=== PATIENT | female | born 1940 | race Caucasian/White ===

== ENCOUNTER → 2017-09-06 07:02 | Outpatient (CLI) | payer MEDICARE, SELFPAY ==
[2017-09-06 07:54] LABS: AST(SGOT) 14 U/L (15-37); Alanine Aminotransfer ALT/SGPT 17 U/L (13-56); Albumin, Serum 3.8 g/dL (3.2-5.0); Alkaline Phosphatase 63 U/L (45-117); Cholesterol 122 mg/dL (200); Globulin 3.6 g/dL (2.2-4.2); High Density Lipoprotein 57 mg/dL; Protein, Total 7.4 g/dL (6.4-8.2); Triglycerides 92 mg/dL; Very Low Density Lipoprotein 18 mg/dL (5-40)
== END ==
PROVIDERS: Family Provider Family Medicine; PCP Family Medicine; Visit Provider Physician Assistant Medical
DX: E78.5 Hyperlipidemia, unspecified (principal); Z79.899 Other long term (current) drug therapy
CPT/HCPCS: 36415; 80061; 80076

== ENCOUNTER → 2017-09-22 07:03 | Outpatient (CLI) | payer MEDICARE, SELFPAY ==
[2017-09-22 07:38] LABS: Absolute Lymphocyte Count 1.96 X10^3/ul (0.83-4.51); Absolute Neutrophil Count 2.5 X10^3/uL (2.0-7.7); Basophil# 0.05 X10^3/uL; Eosinophil# 0.14 X10^3/uL; Eosinophils% 2.8 % (0-5); Hematocrit 38.9 % (37-47); Hemoglobin 12.7 g/dl (12.0-15.0); Lymphocyte # 1.96 X10^3/ul (4.0); Lymphocyte % 39.4 % (19-41); Mean Corp Hgb Conc 32.6 g/gl (32-36); Mean Corpuscular Hgb 29.4 pg (27.0-32.0); Mean Platelet Vol. 10.1 fl (6.2-12.0); Monocyte# 0.34 X10^3/uL; Monocyte% 6.8 % (0-10); Neutrophil # 2.48 X10^3/uL (2.7-7.7); Platelet Count 234 K/mm3 (150-450); RBC Distribution Width CV 12.8 % (11.6-14.6); RBC Distribution Width SD 41.9 fl (35.1-43.9); Red Blood Count 4.32 M/mm3 (4.2-5.4)
[2017-09-22 07:40] LABS: POSITIVE COUNT NO; POSITIVE DIFFERENTIAL NO; POSITIVE MORPHOLOGY NO
[2017-09-22 08:08] LABS: Anion Gap 4 (5-15); BUN 10 mg/dL (7-18); BUN/Creat Ratio 11.7 RATIO (10-20); Calcium,Total 8.3 mg/dL (8.5-10.1); Chloride 104 mmol/L (98-107); Creatinine, Serum 0.86 mg/dL (0.55-1.02); EST Glomerular Filtration Rate 68 mL/min (>60); Est Glom Filt Rate - Afr Amer 82 mL/min (>60); Glucose 89 mg/dL (74-106); Potassium 4.2 mmol/L (3.5-5.1); Sodium Level 138 mmol/L (136-145); T4 Total, Thyroxin 11.6 ug/dL (4.8-13.9); Thyroid Stim Hormone (TSH) 3.25 uIU/mL (0.358-3.74)
== END ==
PROVIDERS: Family Provider Family Medicine; PCP Family Medicine; Visit Provider Physician Assistant Medical
DX: R94.31 Abnormal electrocardiogram [ECG] [EKG] (principal); R53.83 Other fatigue; I10 Essential (primary) hypertension; R06.00 Dyspnea, unspecified; E78.5 Hyperlipidemia, unspecified; I25.10 Atherosclerotic heart disease of native coronary artery without angina pectoris
CPT/HCPCS: 36415; 80048; 84436; 84443; 85025

== ENCOUNTER 2017-10-11 07:13 | Emergency (ER) | payer MEDICARE, SELFPAY ==
--- NOTE | 2017-10-11 07:13 | DT_ITS ---
This patient was seen during an EMR downtime October 04, 2017 - October 11, 2017. This patient may have a combination of paper and electronic documentation or all paper documentation. All documentation is viewable within the e-chart portion of [facility] for each patient visit.
[2017-10-11 07:14] VITALS: BP 158/80; PULSE 93; RESP 22; TEMP 37; O2SAT 92; BMI 30.1
--- NOTE | 2017-10-11 07:29 | EKG12_ITS ---
Test Reason : SOB Blood Pressure : / mmHG Vent. Rate : 083 BPM Atrial Rate : 083 BPM P-R Int : 178 ms QRS Dur : 092 ms QT Int : 376 ms P-R-T Axes : 072 007 028 degrees QTc Int : 441 ms Sinus rhythm with Premature atrial complexes Otherwise normal ECG Confirmed by GERA HOPE, MARÍA ([id number]), film editor supervisor RETA JUNG ([id number] on 10/13/2017 5:56:41 PM Referred By: MARIA ESTHER Confirmed By:MARÍA BOSS MD
--- NOTE | 2017-10-11 07:29 | RAD_ITS ---
STUDY: X-RAY CHEST REASON FOR EXAM: Female, 77 years old. Cough for 4 days TECHNIQUE: PA and lateral views of the chest. COMPARISON: None. FINDINGS: There is a large hiatal hernia. There is minimal scarring at the left lung base. There is no demonstrated pleural abnormality. Normal size heart. Normal mediastinum and salas. Normal visualized pulmonary arteries. There is atherosclerotic calcification of the aortic arch with tortuosity. There are diffuse degenerative changes of the visualized thoracic spine. The bones are demineralized. There is a compression deformity at T12. There is no demonstrated abnormality of the visualized soft tissue structures of the upper abdomen. RAD/Chest PA and Lateral IMPRESSION: Minimal left basilar scarring. Large hiatal hernia. Electronically Signed: Juan C Landeros DO at 8:48 EDT Tel , Service support ,
[2017-10-11 07:46] VITALS: O2SAT 94
--- NOTE | 2017-10-11 07:48 | ED.VIS.GEN ---
History of Present Illness Chief Complaint: Shortness of Breath Informant: Patient, Family Onset: Days - 4 Context: Gradual Onset Timing: Intermittent Quality: wheezing Location: chest Current Severity: Mild Maximum Severity: Moderate Worsened by: exertion, coughing Relieved by: rest Associated Symptoms: chills Narrative: Patient is very poor historian; she states she sees a custom clothier locally but does not know why. Does not think she has asthma but states she may have a little COPD and then admits that she has never been a smoker. Is not on home oxygen. States that she has had dyspnea with exertion and a nonproductive cough that feels like it is worsening over the past 4 days. She has had intermittent dyspnea on exertion however, and swelling in her lower extremities for a year plus or minus. No recent PCP visits, but states that she has a stress test ordered for a week or 2 away from now because of her issues with breathing. - Past Medical History (1) Atherosclerotic heart disease of [place] coronary artery without angina pectoris Status: Chronic (2) Essential (primary) hypertension Status: Chronic (3) HLD (hyperlipidemia) Status: Chronic Past Medical History - Allergies and Home Meds Allergies/Adverse Reactions: Allergies No Known Allergies Allergy (Verified 10/11/17 07:15) Primary Care Physician: Jamir Guardado DO [Primary Care Provider] - Lives: Spouse/ Significant Other Smoking Status: Never smoker Review of Systems All systems negative except as indicated General: Reports: Chills, Malaise ENT: Reports: Rhinorrhea. Denies: Bilateral ear pain, Sore throat Cardiovascular: Denies: Chest pain, Palpitations, Heart racing Respiratory: Reports: Cough, Dyspnea on exertion, Orthopnea - Chronic Gastrointestinal: Reports: Nausea. Denies: Abdominal pain, Vomiting, Diarrhea, Melena Musculoskeletal: Reports: Swelling - BLE. Denies: Neck pain, Back pain Physical Exam Vital Signs/Narrative: Vital Signs Temp Pulse Resp BP Pulse Ox 10/11/17 07:14 98.6 F 93 22 H 158/80 H 92 Inital Vital Signs reviewed: Yes General: Well nourished, Well developed, Obese Head: Normocephalic, Atraumatic Eyes: Perrl, EOMI ENT: Moist mucous membranes, No rhinorrhea, TM's clear. Negative for: Sinus tenderness Neck: Supple, Nontender, No lymphadenopathy, - - + JVD Cardiovascular: Regular rate, Regular rhythm, No murmurs Respiratory: No distress, Chest nontender, Rales - Left base Abdomen: Soft, Nontender, Nondistended, Normal bowel sounds Back: Nontender, Normal Inspection. Negative for: CVA tenderness Extremities: Nontender, Edema - 1+ BLE Skin: Normal color, No rash Neurological: Alert, Oriented x3, Cranial nerves II-XII grossly intact, Normal Strength, Normal Sensation, Normal Gait - Without apparent gross dyspnea Psychological: Normal affect Diagnostic/Tx/Re-eval Impressions Chest X-Ray 10/11/17 07:29 IMPRESSION: Minimal left basilar scarring. Large hiatal hernia. Electronically Signed: Juan Carmin Landeros DO at 8:48 EDT Tel , Service support , 10/11/17 07:29 Chest PA and Lateral [RAD] Stat Laboratory Results 10/11/17 10/11/17 10/11/17 Range/Units 07:45 07:45 07:45 WBC 9.2 (4.4-11.0) K/mm3 RBC 4.49 (4.2-5.4) M/mm3 Hgb 13.8 (12.0-15.0) g/dl Hct 40.5 (37-47) % MCV 90.2 (81-99) fL MCH 30.7 (27.0-32.0) pg MCHC 34.1 (32-36) g/gl RDW 12.8 (11.6-14.6) % RDW Differential 41.9 (35.1-43.9) fl Plt Count 228 (150-450) K/mm3 MPV 10.0 (6.2-12.0) fl Immature Gran % (Auto) 0.300 (0.0-0.9) % Neut % (Auto) 82.4 H (47-70) % Lymph % (Auto) 10.7 L (19-41) % Coryell % (Auto) 5.4 (0-10) % Eos % (Auto) 0.8 (0-5) % Baso % (Auto) 0.4 (0-1) % Absolute Neuts (auto) 7.5 (2.0-7.7) X10^3/uL Absolute Lymphs (auto) 0.98 (0.83-4.51) X10^3/ul Total Counted Not Reportable Sodium 134 L (136-145) mmol/L Potassium 3.5 (3.5-5.1) mmol/L Chloride 100 (98-107) mmol/L Carbon Dioxide 28.0 (21.0-32.0) mmol/L Anion Gap 6 (5-15) BUN 10 (7-18) mg/dL Creatinine 0.82 (0.55-1.02) mg/dL Est GFR (MDRD) Af Amer 87 (>60) mL/min Est GFR (MDRD) Non-Af 72 (>60) mL/min BUN/Creatinine Ratio 12.3 (10-20) RATIO Glucose 124 H (74-106) mg/dL Calcium 8.7 (8.5-10.1) mg/dL Troponin I < 0.015 (<0.045) ng/mL B-Natriuretic Peptide 171.2 H (0-100) pg/mL - Rhythm Strip Rhythm Strip: Sinus Rhythm Rate: 80 Ectopy: PAC(s) - EKG 1 Interpretation: Sinus Rhythm, No Acute Injury Pattern, - - nml axis. low voltage. PAC. No ST segment deviation or acute ischemic chgs. - Medical Decision Making Workup is fairly unremarkable, except for a large hiatal hernia on chest x-ray. In viewing the image, her stomach is in the right side of her chest, and occupies a good amount of her right hemithorax. It is larger appearing than on her prior chest x-ray, on which a hiatal hernia was noted, but the technique is similar and it appears to be larger. It is certainly conceivable that this is contributing to her dyspnea with exertion. Now that she has a respiratory illness, it is not surprising that her breathing is worse. In discussing with family, it seems that since the hospital was having computer issues recently, her stress test was supposed to be last week and it was canceled and has not been rescheduled yet. They are planning on doing that, this was supposed to be done according to her custom clothier. She may need further workup for this hiatal hernia, if it is paraesophageal she could be a candidate for surgical treatment, although that will be all relative given her age. She is encouraged to follow-up with her doctor regarding this. She was given a breathing treatment, which did loosen her secretions and made her cough a lot more, and when she coughed something up, it was yellow, and she does feel like she is breathing better. There is no sign of any pneumonia on the chest x-ray, but I think it would be reasonable at her age to put her on a broad-spectrum antibiotic such as Levaquin at bronchitis dosing, and have her follow-up with her doctor regarding this as well. Her pulse ox was 92% at rest on room air, I think it is reasonable to discharge her home, she is advised to rest if she starts getting dyspnea when performing activities at home. She and family are comfortable with that plan. ED Disposition - Plan for ED Patient: Disposition: Home or Assisted Living Chief Complaint: Shortness of Breath Diagnosis: Dyspnea on exertion, Lower respiratory tract infection, Hiatal hernia Instructions: Acute Bronchitis, What Is a Hiatal Hernia? Prescriptions: levoFLOXacin tablet [Levaquin] 500 mg PO DAILY #7 tab Referrals: Jamir Guardado DO [Primary Care Provider] - 3-5 Days
[2017-10-11 08:10] LABS: Absolute Lymphocyte Count 0.98 X10^3/ul (0.83-4.51); Absolute Neutrophil Count 7.5 X10^3/uL (2.0-7.7); Basophil# 0.04 X10^3/uL; Basophil% 0.4 % (0-1); Eosinophil# 0.07 X10^3/uL; Eosinophils% 0.8 % (0-5); Hematocrit 40.5 % (37-47); Hemoglobin 13.8 g/dl (12.0-15.0); Lymphocyte # 0.98 X10^3/ul (4.0); Lymphocyte % 10.7 % (19-41); Mean Corp Hgb Conc 34.1 g/gl (32-36); Mean Corpuscular Hgb 30.7 pg (27.0-32.0); Mean Corpuscular Volume 90.2 fL (81-99); Monocyte# 0.49 X10^3/uL; Monocyte% 5.4 % (0-10); Neutrophil # 7.54 X10^3/uL (2.7-7.7); Neutrophil % 82.4 % (47-70); Platelet Count 228 K/mm3 (150-450); RBC Distribution Width CV 12.8 % (11.6-14.6); RBC Distribution Width SD 41.9 fl (35.1-43.9); Red Blood Count 4.49 M/mm3 (4.2-5.4); White Blood Count 9.2 K/mm3 (4.4-11.0)
[2017-10-11 08:12] LABS: POSITIVE COUNT NO; POSITIVE DIFFERENTIAL NO; POSITIVE MORPHOLOGY NO
[2017-10-11] MEDS: Albuterol 2.5 MG/3 ML VIAL.NEB. INHALATION (08:12)
[2017-10-11 08:13] VITALS: PULSE 94; RESP 20; O2SAT 93
[2017-10-11 08:24] LABS: Anion Gap 6 (5-15); BUN 10 mg/dL (7-18); BUN/Creat Ratio 12.3 RATIO (10-20); Calcium,Total 8.7 mg/dL (8.5-10.1); Chloride 100 mmol/L (98-107); Creatinine, Serum 0.82 mg/dL (0.55-1.02); EST Glomerular Filtration Rate 72 mL/min (>60); Est Glom Filt Rate - Afr Amer 87 mL/min (>60); Glucose 124 mg/dL (74-106); Potassium 3.5 mmol/L (3.5-5.1); Sodium Level 134 mmol/L (136-145)
[2017-10-11 08:34] LABS: BNP,B-Type NATRIURETIC PEPTIDE 171.2 pg/mL (0-100)
[2017-10-11 09:28] VITALS: PULSE 82; RESP 18; O2SAT 93
[2017-10-11 09:59] VITALS: BP 126/64; PULSE 84; RESP 18
== END 2017-10-11 10:06 | disposition home or self-care (01) ==
PROVIDERS: Emergency Provider Emergency Medicine; Family Provider Family Medicine; PCP Family Medicine
DX: R06.09 Other forms of dyspnea (principal); J22 Unspecified acute lower respiratory infection; K44.9 Diaphragmatic hernia without obstruction or gangrene; E78.5 Hyperlipidemia, unspecified; I25.10 Atherosclerotic heart disease of native coronary artery without angina pectoris; I10 Essential (primary) hypertension
CPT/HCPCS: 71046; 80048; 83880; 84484; 85025; 93005; 94640; 99285; A4216

== ENCOUNTER → 2017-10-26 06:48 | Outpatient (CLI) | payer MEDICARE, SELFPAY ==
--- NOTE | 2017-10-26 06:52 | ECHOD_ITS ---
Reason For Study: DYSPNEA/SOB Procedure This was a 2D Doppler, Color Flow transthoracic echocardiogram. The exam was of adequate technical quality. Exam performed in department. Left Ventricle Normal LV size. Left ventricular systolic function is normal. The estimated ejection fraction is 65 %. No regional wall motion abnormalities noted. Right Ventricle Normal RV size. Normal systolic function. Atria The left atrium is moderately enlarged. The right atrium is moderately enlarged. No doppler evidence for ASD. Mitral Valve There is mild mitral annular calcification. Normal mitral valve. Mild (1+) mitral valve insufficiency. Tricuspid Valve Normal tricuspid valve. Moderate (2+) tricuspid valve insufficiency. Right ventricular systolic pressure estimated to be 37 mmHg. Aortic Valve Trisinus/trileaflet aortic valve. Normal aortic valve. Mild (1+) aortic valve insufficiency. Pulmonic Valve The pulmonic valve is not well visualized. Trivial pulmonic valve insufficiency. Great Vessels Normal sized aortic root. Pericardium/Pleural Trivial pericardial effusion. There are no echocardiographic indications of cardiac tamponade. MMode/2D Measurements & Calculations LVIDd: 4.3 cm IVSd: 1.0 cm Ao root diam: 3.3 cm LVIDs: 2.9 cm LVPWd: 0.88 cm LA dimension: 3.0 cm RVDd: 3.3 cm FS: 32.3 % LAV(MOD-bp): 47.4 ml EDV(MOD-sp4): 63.2 ml SV(MOD-sp4): 43.7 ml LAV(MOD-bp) Indexed: 25.8 ml/m2 ESV(MOD-sp4): 19.5 ml LAV(MOD-sp2): 38.4 ml EF(MOD-sp4): 69.1 % LAV(MOD-sp4): 52.0 ml LA A4 area: 19.7 cm2 RA A4 area: 20.9 cm2 Time Measurements MV dec time: 0.19 sec Doppler Measurements & Calculations MV E max carlos: 91.2 cm/sec Lat Peak E' Carlos: 9.3 cm/sec Med Peak E' Carlos: 8.3 cm/sec MV A max carlos: 71.8 cm/sec E/E' lat: 9.8 E/E' med: 10.9 MV E/A: 1.3 Ao V2 max: 137.2 cm/sec AI max carlos: 419.1 cm/sec LV V1 max: 116.1 cm/sec Ao max P.5 mmHg AI max P.4 mmHg LV V1 max P.4 mmHg AI dec slope: 177.9 cm/sec2 AI P1/2t: 689.9 msec PA V2 max: 108.9 cm/sec TR max carlos: 289.9 cm/sec TR max P.6 mmHg Interpretation Summary Left ventricular systolic function is normal. The estimated ejection fraction is 65 %. The left atrium is moderately enlarged. The right atrium is moderately enlarged. Mild (1+) mitral valve insufficiency. Moderate (2+) tricuspid valve insufficiency. Mild (1+) aortic valve insufficiency. Trivial pulmonic valve insufficiency. Trivial pericardial effusion. There are no echocardiographic indications of cardiac tamponade. Right ventricular systolic pressure estimated to be 37 mmHg. Transmitral diastolic flow velocities suggest diastolic dysfunction (pseudonormal pattern). Ordering Physician: Faith Baumann Referring Physician: George Malik Performed By: Azeb Way RDCS
--- NOTE | 2017-10-26 14:25 | STRESSREP ---
Stress Test Report Date: 10/26/2017 Procedure: Exercise tolerance test/imaging study Indications: Shortness of breath/dyspnea; fatigue; CAD Consent: Per the patient Procedure: The patient exercised on a Isaiah protocol for 5 minutes completing Stage I and 2 minutes of Stage II achieving a peak heart rate of 150 bpm (104 % predicted maximal heart rate) with a peak blood pressure 148/80 mmHg and a peak MET capacity of 7 METs. The baseline ECG demonstrated normal sinus rhythm. The peak exercise ECG demonstrated no obvious ECG changes. There was a rare PAC during recovery. The functional capacity was considered average. There was no complaint of chest discomfort during exercise or recovery. The examination was discontinued secondary to dyspnea. Impression: 1. Technically adequate (percent predicted maximal heart rate greater than 85%) exercise tolerance test 2. Peak exercise ECG with no obvious ECG changes 3. There was a rare PAC during recovery. 4. Nuclear images pending Myocardial perfusion imaging study: Technique: The patient was injected with 11.1 mCi of technetium 99m Cardiolite and subsequently rest SPECT Cardiolite nuclear imaging was obtained in the horizontal long, vertical long, and short axis views. The patient exercised on a Isaiah protocol for 5 minutes completing Stage I and 2 minutes of Stage II achieving a peak heart rate of 150 bpm (104 % predicted maximal heart rate) with a peak blood pressure 148/80 mmHg and a peak MET capacity of 7 METs. The patient was injected with 34 mCi of technetium 99m Cardiolite and subsequently stress SPECT Cardiolite nuclear imaging was obtained in the horizontal long, vertical long, and short axis views. A gated Cardiolite study at peak stress was obtained. Interpretation: Rest and stress SPECT Cardiolite nuclear imaging status post realignment, normalization, and attenuation correction, demonstrates the appearance of relative uniform tracer uptake and myocardial perfusion appearing within normal limits. There is end systolic thickening and brightening. The gated Cardiolite study demonstrates myocardial thickening and inward wall motion. The reported LVEF is 93 %. Impression: 1. Rest and stress SPECT Cardiolite nuclear imaging demonstrate relative uniform tracer uptake and myocardial perfusion appearing within normal limits. 2. The gated Cardiolite study reports an LVEF of 93 %. This note was generated with [employer] software. It may contain incorrect words, spelling, and punctuation that were not noted in checking the note before signing.
--- NOTE | 2017-10-26 14:30 | STRESSREP_ITS ---
Stress Test Report Date: 10/26/2017 Procedure: Exercise tolerance test/imaging study Indications: Shortness of breath/dyspnea; fatigue; CAD Consent: Per the patient Procedure: The patient exercised on a Isaiah protocol for 5 minutes completing Stage I and 2 minutes of Stage II achieving a peak heart rate of 150 bpm (104 % predicted maximal heart rate) with a peak blood pressure 148/80 mmHg and a peak MET capacity of 7 METs. The baseline ECG demonstrated normal sinus rhythm. The peak exercise ECG demonstrated no obvious ECG changes. There was a rare PAC during recovery. The functional capacity was considered average. There was no complaint of chest discomfort during exercise or recovery. The examination was discontinued secondary to dyspnea. Impression: 1. Technically adequate (percent predicted maximal heart rate greater than 85% ) exercise tolerance test 2. Peak exercise ECG with no obvious ECG changes 3. There was a rare PAC during recovery. 4. Nuclear images pending Myocardial perfusion imaging study: Technique: The patient was injected with 11.1 mCi of technetium 99m Cardiolite and subsequently rest SPECT Cardiolite nuclear imaging was obtained in the horizontal long, vertical long, and short axis views. The patient exercised on a Isaiah protocol for 5 minutes completing Stage I and 2 minutes of Stage II achieving a peak heart rate of 150 bpm (104 % predicted maximal heart rate) with a peak blood pressure 148/80 mmHg and a peak MET capacity of 7 METs. The patient was injected with 34 mCi of technetium 99m Cardiolite and subsequently stress SPECT Cardiolite nuclear imaging was obtained in the horizontal long, vertical long, and short axis views. A gated Cardiolite study at peak stress was obtained. Interpretation: Rest and stress SPECT Cardiolite nuclear imaging status post realignment, normalization, and attenuation correction, demonstrates the appearance of relative uniform tracer uptake and myocardial perfusion appearing within normal limits. There is end systolic thickening and brightening. The gated Cardiolite study demonstrates myocardial thickening and inward wall motion. The reported LVEF is 93 %. Impression: 1. Rest and stress SPECT Cardiolite nuclear imaging demonstrate relative uniform tracer uptake and myocardial perfusion appearing within normal limits. 2. The gated Cardiolite study reports an LVEF of 93 %. This note was generated with [employer] software. It may contain incorrect words, spelling, and punctuation that were not noted in checking the note before signing.
== END ==
PROVIDERS: Family Provider Family Medicine; PCP Family Medicine; Visit Provider Internal Medicine Cardiovascular Disease
DX: I25.10 Atherosclerotic heart disease of native coronary artery without angina pectoris (principal); R53.83 Other fatigue; I10 Essential (primary) hypertension; R06.00 Dyspnea, unspecified; E78.5 Hyperlipidemia, unspecified; R94.31 Abnormal electrocardiogram [ECG] [EKG]
CPT/HCPCS: 78452; 93017; 93306; A9500; A4216

== ENCOUNTER → 2017-12-20 07:08 | Outpatient (CLI) | payer MEDICARE, SELFPAY ==
[2017-12-20 09:17] LABS: Cholesterol 120 mg/dL (200); High Density Lipoprotein 50 mg/dL; Thyroid Stim Hormone (TSH) 2.29 uIU/mL (0.358-3.74); Triglycerides 124 mg/dL; Very Low Density Lipoprotein 25 mg/dL (5-40)
== END ==
PROVIDERS: Family Provider Family Medicine; PCP Family Medicine; Visit Provider Family Medicine
DX: Z79.899 Other long term (current) drug therapy (principal)
CPT/HCPCS: 36415; 80061; 84443

== ENCOUNTER 2018-06-29 18:50 | Emergency (ER) | payer MEDICARE, SELFPAY ==
[2018-04-28 10:25] VITALS: BMI 30.1
[2018-06-29 18:51] VITALS: BP 146/78; PULSE 104; RESP 18; TEMP 36.7; O2SAT 98; BMI 33.2
--- NOTE | 2018-06-29 20:07 | ED.VISSUMM ---
- ER Visit Summary Date of Service: 06/29/18 Chief Complaint: 5 seconds of anxiety and tremors History of Present Illness: The patient is a 78 F recently had repair of hernia. She became anxious and had tremors because she was exposed to family member who was diagnosed with influenza A. She had a second episode upon arrival to the hospital. Presently she has no complaints. Review of systems for general, ocular, ENT, cardiovascular, respiratory, , MsAlta Barger is, musculoskeletal, Derm, are all negative. Her only complaints are abdominal pain which one would expect status post recent hernia repair and feeling anxious. Physical Examination: Vital signs are marked for slight elevation blood pressure. Head is atraumatic normocephalic. Pupils are equal round reactive. Extraocular muscles are intact. TMs are pearly white with landmarks noted. Nares patent with no drainage. Posterior pharynx without erythema or exudate. Uvula is midline. There is no dysphonia or dysphasia. Trachea is midline. There is no stridor with auscultation of the neck. Surgical scar noted for thyroidectomy. Heart was remarkable for irregularity/ectopic beats. Patient was not on the monitor during auscultation. Lungs are clear to auscultation. Abdomen is mildly tender. There is no CVA tenderness noted. There is no asymmetry, swelling, discoloration, leg vein distention, palpable cords or tenderness along the distribution of the deep venous system. Neuro exam is nonfocal Test Results: Patient was placed on a monitor and monitor reveals a sinus rhythm with no ectopy. Rate was 79. Emergency Department Course and Treatment: Family and patient were informed of the monitor reading. They also informed with 5 seconds of symptoms difficult to determine etiology. With her not complaint of chest pain or shortness of breath doubt pulmonary embolus. Treatment Plan: Home-going instructions for anxiety reaction Disposition: Discharged home in stable condition with family Impression: Anxiety reaction, situational acute This note was generated with [employer] dictation software. It may contain incorrect words, spelling, and punctuation that were not noted in review of the chart prior to signing ED Disposition - Plan for ED Patient: Disposition: Home or Assisted Living Instructions: ED Stress React Referrals: Jamir Guardado, DO [Primary Care Provider] - As Needed
[2018-06-29 20:18] VITALS: BP 109/67; PULSE 74; RESP 16; O2SAT 97
== END 2018-06-29 20:19 | disposition home or self-care (01) ==
PROVIDERS: Emergency Provider Emergency Medicine; Family Provider Family Medicine; PCP Family Medicine
DX: F41.9 Anxiety disorder, unspecified (principal); R10.9 Unspecified abdominal pain; I10 Essential (primary) hypertension; E78.00 Pure hypercholesterolemia, unspecified; I25.10 Atherosclerotic heart disease of native coronary artery without angina pectoris
CPT/HCPCS: 99283

== ENCOUNTER → 2018-09-13 10:30 | Outpatient (CLI) | payer MEDICARE, SELFPAY ==
[2018-09-13 09:23] VITALS: BMI 33.2
[2018-09-13 10:33] LABS: Bacteria 0 SEEN /hpf (None Seen); Mucous, Urine 0 SEEN /hpf (<or=2+); Red Blood Cells-Urine 0 SEEN /hpf (0-5)
[2018-09-13 12:12] LABS: Color, Urine Yellow (Yellow); Glucose, Dipstick Normal (Normal); Ketone-Dipstick Negative (Negative); Leukocyte Esterase-Dipstick 25 /ul (Negative); Nitrite-Dipstick Negative (Negative); Occult Blood-Urine Negative /ul (Negative); Protein-Dipstick Negative (Negative); Urine Bilirubin Dipstick Negative (Negative); Urine Clarity Clear (Clear); Urine Urobilinogen Normal (Normal); Urine pH 6.5 (5.0 - 8.0)
[2018-09-13 12:34] LABS: Squamous Epithelial Cells - UA 0-5 SEEN /hpf (5-10); White Blood Cells 0-5 SEEN /hpf (0-5)
== END ==
PROVIDERS: Family Provider Family Medicine; PCP Family Medicine; Visit Provider Nurse Practitioner Family
DX: R30.0 Dysuria (principal)
CPT/HCPCS: 81001; 87086

== ENCOUNTER → 2018-10-10 07:34 | Outpatient (CLI) | payer MEDICARE, SELFPAY ==
[2018-10-03 16:12] VITALS: BMI 30.8
[2018-10-10 08:22] LABS: AST(SGOT) 18 U/L (15-37); Alanine Aminotransfer ALT/SGPT 16 U/L (13-56); Albumin, Serum 3.2 g/dL (3.2-5.0); Alkaline Phosphatase 67 U/L (45-117); Bilirubin, Direct 0.14 mg/dL (0.00-0.30); Cholesterol 128 mg/dL (200); Globulin 3.9 g/dL (2.2-4.2); High Density Lipoprotein 62 mg/dL; Protein, Total 7.1 g/dL (6.4-8.2); Triglycerides 115 mg/dL; Very Low Density Lipoprotein 23 mg/dL (5-40)
== END ==
PROVIDERS: Family Provider Family Medicine; PCP Family Medicine; Referring Provider Internal Medicine Cardiovascular Disease; Visit Provider Internal Medicine Cardiovascular Disease
DX: I25.10 Atherosclerotic heart disease of native coronary artery without angina pectoris (principal); E78.00 Pure hypercholesterolemia, unspecified
CPT/HCPCS: 36415; 80061; 80076

== ENCOUNTER → 2019-01-31 07:49 | Outpatient (CLI) | payer MEDICARE, SELFPAY ==
[2019-01-24 15:41] VITALS: BMI 31.0
--- NOTE | 2019-01-31 07:50 | US_ITS ---
STUDY: ULTRASOUND OF THE FEMALE PELVIS - COMPLETE REASON FOR EXAM: Female, 78 years old. Right lower quadrant pain. Reported history of hysterectomy which patient denies. No uterus is seen on a previous CT of January 17, 2012. Postmenopausal. TECHNIQUE: Transabdominal and Transvaginal TECHNICAL QUALITY: Adequate. COMPARISON: None. FINDINGS: The uterus is surgically absent. The right ovary is not visualized. There is no visualized right adnexal mass or complex lesion. The left ovary is not visualized. There is no visualized left adnexal mass or complex lesion. There is no fluid in the cul-de-sac. The pre void volume of the bladder was 165 ml. The urinary bladder is grossly normal. US/Pelvic (Non ) IMPRESSION: Status post hysterectomy and questionable nephrectomy. There is no visualized acute pelvic abnormality. Electronically Signed: Dionisio Rodney DO at 17:08 EDT Tel [phone], Service support ,
--- NOTE | 2019-01-31 09:11 | US_ITS ---
STUDY: ULTRASOUND OF THE FEMALE PELVIS - COMPLETE REASON FOR EXAM: Female, 78 years old. Right lower quadrant pain. Reported history of hysterectomy which patient denies. No uterus is seen on a previous CT of January 17, 2012. Postmenopausal. TECHNIQUE: Transabdominal and Transvaginal TECHNICAL QUALITY: Adequate. COMPARISON: None. FINDINGS: The uterus is surgically absent. The right ovary is not visualized. There is no visualized right adnexal mass or complex lesion. The left ovary is not visualized. There is no visualized left adnexal mass or complex lesion. There is no fluid in the cul-de-sac. The pre void volume of the bladder was 165 ml. The urinary bladder is grossly normal. US/Transvaginal Non- IMPRESSION: Status post hysterectomy and questionable nephrectomy. There is no visualized acute pelvic abnormality. Electronically Signed: Dionisio Rodney DO at 17:08 EDT Tel [phone], Service support ,
== END ==
PROVIDERS: Family Provider Family Medicine; PCP Family Medicine; Referring Provider Family Medicine; Visit Provider Family Medicine
DX: R10.31 Right lower quadrant pain (principal)
CPT/HCPCS: 76830; 76856

== ENCOUNTER → 2019-08-18 | Outpatient (CLI) | payer MEDICARE, SELFPAY ==
[2019-04-10 15:14] VITALS: BMI 31.8
[2019-08-18 10:29] LABS: AST(SGOT) 24 U/L (15-37); Alanine Aminotransfer ALT/SGPT 26 U/L (13-56); Albumin, Serum 3.8 g/dL (3.2-5.0); Alkaline Phosphatase 57 U/L (45-117); Bilirubin, Direct 0.16 mg/dL (0.00-0.30); Cholesterol 135 mg/dL (200); Globulin 3.8 g/dL (2.2-4.2); High Density Lipoprotein 64 mg/dL; Protein, Total 7.6 g/dL (6.4-8.2); Triglycerides 116 mg/dL; Very Low Density Lipoprotein 23 mg/dL (5-40)
== END | disposition home or self-care (01) ==
PROVIDERS: PCP Family Medicine; Referring Provider Internal Medicine Cardiovascular Disease; Visit Provider Internal Medicine Cardiovascular Disease
DX: E78.00 Pure hypercholesterolemia, unspecified (principal)
CPT/HCPCS: 36415; 80061; 80076

== ENCOUNTER → 2020-06-21 08:48 | Outpatient (CLI) | payer MEDICARE, SELFPAY ==
[2020-06-20 13:20] VITALS: BMI 32.2
[2020-06-21 10:21] LABS: AST(SGOT) 19 U/L (15-37); Alanine Aminotransfer ALT/SGPT 24 U/L (13-56); Albumin, Serum 3.8 g/dL (3.2-5.0); Alkaline Phosphatase 72 U/L (45-117); Bilirubin, Direct 0.12 mg/dL (0.00-0.30); Cholesterol 132 mg/dL (200); Globulin 3.7 g/dL (2.2-4.2); High Density Lipoprotein 59 mg/dL; Protein, Total 7.5 g/dL (6.4-8.2); Triglycerides 117 mg/dL; Very Low Density Lipoprotein 23 mg/dL (5-40)
== END ==
PROVIDERS: PCP Family Medicine; Referring Provider Physician Assistant Medical; Visit Provider Physician Assistant Medical
DX: E78.00 Pure hypercholesterolemia, unspecified (principal); I10 Essential (primary) hypertension; I25.10 Atherosclerotic heart disease of native coronary artery without angina pectoris
CPT/HCPCS: 36415; 80061; 80076

== ENCOUNTER 2020-07-04 11:18 | Outpatient (RCR) | payer MEDICARE, SELFPAY ==
[2020-06-20 13:20] VITALS: BMI 32.2
[2020-07-04] MEDS: COVID-19 VACC, MRNA(PFIZER)/PF 30 MCG/0.3 ML SYRINGE IM (13:03)
[2020-07-25] MEDS: COVID-19 VACC, MRNA(PFIZER)/PF 30 MCG/0.3 ML SYRINGE IM (13:05)
== END 2020-07-04 23:59 ==
LOC: IMMUN 11:18
PROVIDERS: PCP Family Medicine; Visit Provider Family Medicine
DX: Z23 Encounter for immunization (principal)
CPT/HCPCS: 0001A; 0002A; 91300

== ENCOUNTER → 2020-08-14 13:48 | Outpatient (CLI) | payer MEDICARE, SELFPAY ==
[2020-08-14 13:26] VITALS: BMI 32.8
--- NOTE | 2020-08-14 14:30 | RAD_ITS ---
STUDY: X-RAY CHEST REASON FOR EXAM: Female, 80 years old. Dyspnea TECHNIQUE: PA and lateral views of the chest. COMPARISON: 10/11/2017 FINDINGS: The lungs are hyperinflated. There are a few bibasilar streaky opacities. There is cardiomegaly. Normal mediastinum and salas. Normal visualized pulmonary arteries. There is atherosclerotic calcification of the aortic arch with tortuosity. There is demineralization of the osseous structures. There are degenerative changes of the thoracic spine. There is a stable compression deformity of T12. There are degenerative changes of the left shoulder. There is no demonstrated abnormality of the visualized soft tissue structures of the upper abdomen. RAD/Chest PA and Lateral IMPRESSION: Hyperinflated lungs, may reflect underlying COPD. Minimal bibasilar atelectasis and/or scarring. Cardiomegaly. Electronically Signed: Lisa Mcdonald MD at 14:54 EDT Tel , Service support ,
[2020-08-14 15:52] LABS: Anion Gap 3 (5-15); BUN 21 mg/dL (7-18); BUN/Creat Ratio 25.5 RATIO (10-20); Calcium,Total 9.1 mg/dL (8.5-10.1); Chloride 102 mmol/L (98-107); Creatinine, Serum 0.82 mg/dL (0.55-1.02); EST Glomerular Filtration Rate 71 mL/min (>60); Est Glom Filt Rate - Afr Amer 86 mL/min (>60); Glucose 93 mg/dL (74-106); Potassium 4.5 mmol/L (3.5-5.1); Sodium Level 134 mmol/L (136-145); T4 Free Direct 1.15 ng/dL (0.76-1.46); Thyroid Stim Hormone (TSH) 6.79 uIU/mL (0.358-3.74)
== END ==
PROVIDERS: PCP Family Medicine; Referring Provider Family Medicine; Visit Provider Family Medicine
DX: E78.00 Pure hypercholesterolemia, unspecified (principal); I10 Essential (primary) hypertension; R94.2 Abnormal results of pulmonary function studies
CPT/HCPCS: 36415; 71046; 80048; 84439; 84443

== ENCOUNTER → 2020-09-18 14:38 | Outpatient (CLI) | payer MEDICARE, SELFPAY ==
[2020-09-18 13:59] VITALS: BMI 32.8
--- NOTE | 2020-09-18 14:42 | RAD_ITS ---
STUDY: X-RAY - RIGHT SHOULDER REASON FOR EXAM: Female, 80 years old. Pain after trauma TECHNIQUE: 4 view(s) of the shoulder. COMPARISON: None. FINDINGS: There is an acute anterior inferior dislocation of the humeral head noted to the glenoid without demonstrated fracture. There is degenerative arthrosis of the acromioclavicular joint without inferior osseous spur formation. Normal acromion. There is demineralization of the humerus and visualized osseous structures. The soft tissue structures are unremarkable. Normal visualized pulmonary apex. RAD/Shoulder min 2 Views IMPRESSION: Acute anterior inferior dislocation of the humeral head relative to the glenoid without demonstrated fracture. Findings called to the emergency room prior to dictation Electronically Signed: Jason Carnes MD at 15:25 EDT , Service support ,
--- NOTE | 2020-09-18 14:43 | EKG12_ITS ---
Test Reason : Blood Pressure : / mmHG Vent. Rate : 076 BPM Atrial Rate : 093 BPM P-R Int : 000 ms QRS Dur : 092 ms QT Int : 400 ms P-R-T Axes : 000 012 -77 degrees QTc Int : 450 ms Atrial fibrillation T wave abnormality, consider inferior ischemia T wave abnormality, consider anterior ischemia Abnormal ECG Confirmed by DAISY HOPE, MARY ([id number]), industrial editor SILVIO VIERA ([id number]) on 09/20/2020 11:20:28 A M Referred By: Jamir Guardado Confirmed By:HAYLEY VILLA MD
== END ==
PROVIDERS: PCP Family Medicine; Referring Provider Family Medicine; Visit Provider Family Medicine
DX: I49.9 Cardiac arrhythmia, unspecified (principal); M25.511 Pain in right shoulder
CPT/HCPCS: 73030; 93005

== ENCOUNTER 2020-09-18 15:23 | Emergency (ER) | payer MEDICARE, SELFPAY ==
[2020-09-18 13:59] VITALS: BMI 32.8
[2020-09-18 15:24] VITALS: BP 136/78; PULSE 80; RESP 18; TEMP 36.8; O2SAT 97; BMI 27.4
--- NOTE | 2020-09-18 15:38 | EDS_ITS ---
HPI History of Present Illness HPI Narrative: Right shoulder pain and decreased range of motion Chief Complaint: Upper Extremity Injury Informant: patient Occured/Mechanism Mechanism/Context: Yes injury Onset/Context/Timing Onset: Yesterday Timing: Continuous Quality of Pain: Dull and Aching Current Severity: Mild Maximum Severity: Mild Associated Symptoms Associated Symptoms: Negative for Parasthesia Narrative Narrative: 80-year-old female yesterday was helping put something together when she felt her right shoulder pop. She is actually left-hand dominant. She could use her shoulder all day yesterday. Saw her physician today who ordered an outpatient x-ray that returned as a dislocated right shoulder and he sent her down to the emergency department. She has never had any shoulder surgery or prior injury. She denies any other complaints. Her primary care physician is currently working her up for peripheral edema in her lower extremities. Prior similar symptoms: No Recent Illness/Hospitalization: No [facility] Medical History (Updated 09/18/20 @ 15:[address] Simone Kent MD) Atherosclerotic heart disease of [place] coronary artery without angina pectoris Chest discomfort Dyspnea Essential (primary) hypertension Fatigue Hernia HLD (hyperlipidemia) Mitral insufficiency, acute Non-rheumatic tricuspid valve insufficiency Nonrheumatic aortic (valve) insufficiency Nonrheumatic mitral (valve) insufficiency Pure hypercholesterolemia Home Medications ascorbic acid (vitamin C) 500 mg tablet 500 mg PO QDAY 09/14/17 [History Last Taken Unknown] aspirin 81 mg tablet,delayed release 81 mg PO QDAY 09/14/17 [History Last Taken Unknown] multivitamin 1 tab PO DAILY 06/29/18 [History Last Taken Unknown] amlodipine 10 mg tablet 10 mg PO QDAY #90 tab 06/20/20 [Rx Last Taken Unknown] atorvastatin 20 mg tablet 20 mg PO QDAY #90 tab 06/20/20 [Rx Last Taken Unknown] furosemide 20 mg tablet 20 mg PO QDAY #90 tab 06/20/20 [Rx Last Taken Unknown] losartan 25 mg tablet 25 mg PO QDAY #90 tab 06/20/20 [Rx Last Taken Unknown] metoprolol tartrate 50 mg tablet 50 mg PO BID #180 tab 06/20/20 [Rx Last Taken Unknown] omeprazole 40 mg capsule,delayed release 40 mg PO DAILY #90 cap 06/24/20 [Rx Last Taken Unknown] levothyroxine 137 mcg tablet 137 mcg PO QDAY #90 tablet 08/15/20 [Rx Last Taken Unknown] mecobalamin (vitamin B12) 1,000 mcg disintegrating tablet,sublingual 1,000 mcg SUBLINGUAL DAILY 09/18/20 [History Last Taken Unknown] Allergy/AdvReac Type Severity Reaction Status Date / Time No Known Allergies Allergy Verified 09/18/20 15:24 Family History Mother CVA (cerebral vascular accident) Brother CAD (coronary artery disease) Sister CAD (coronary artery disease) Myocardial infarction Son CAD (coronary artery disease) Surgical History History of appendectomy History of bladder suspension procedure History of hernia repair History of hysterectomy History of repair of hiatal hernia History of thyroidectomy History of tubal ligation Social History Smoking Status: Never smoker alcohol intake: never substance use type: does not use caffeine: No what type of physical activity do you participate in: other details: [employer] ROS ED ROS Narrative 8-year-old female no recent illness. Has developed some peripheral edema over the last 2 weeks and her primary care physician is working up. Review of Systems ROS Unobtainable: Denies due to encephalopathy Constitutional Constitutional ED: Denies frequent falls Eyes Eyes: Denies change in vision ENT ENT ED: Denies ear pain or sore throat Cardiovascular Cardiovascular: Denies chest pain Respiratory/Chest Respiratory/Chest: Reports dyspnea Gastrointestinal Gastrointestinal: Denies abdominal pain, diarrhea, nausea or vomiting Genitourinary Genitourinary ED: Denies dysuria or hematuria Musculoskeletal Musculoskeletal: Denies myalgias or neck pain Integumentary Denies rash Neurologic Neurologic: Denies headache(s) Psychiatric Psychiatric: Denies depression Endocrine Endocrinology: Denies polyuria Hematologic/Lymphatic Hematologic/Lymphatic: Denies easy bruising Allergic/Immunologic Allergic/Immunologic ED: Denies urticaria EXAM Physical Exam Narrative Exam Narrative: Older female no acute distress vital signs stable afebrile pulse ox 97% on room air no signs hypoxia. HEENT exam unremarkable neck nontender no JVD. Lungs clear to auscultation bilaterally. Heart irregularly irregular consistent with A. fib rate in 90s. Abdomen soft nontender. Extremities she is unable to move the right extremity due to a dislocated shoulder. She has 1+ pitting edema both lower extremities. Calves are nontender. Dorsi plantar flexion intact. 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 Right hand normal team automobile assembler strength and sensation. Right shoulder performed decreased range of motion. Neurologically she is awake and alert. Const Vital Signs: 09/18/20 15:24 Temperature 98.3 F Temperature Source Oral Pulse Rate 80 Respiratory Rate 18 Blood Pressure 136/78 H Blood Pressure Mean 97 Pulse Ox 97 Oxygen Delivery Method Room Air HEENT normocephalic and atraumatic Eyes PERRL and EOMs intact bilaterally Neck full ROM and supple General: Negative for tenderness Chest Wall inspection of chest normal Resp normal respiratory effort and clear to auscultation bilaterally Cardio Cardio Narrative: A. fib in the 90s. GI non-tender, non-distended and no masses Auscultation: normoactive bowel sounds Palpation: soft Extremity normal to inspection and full ROM Extremity Narrative: Unable to move right shoulder due to dislocation. 1+ peripheral edema in both ankles and feet. Neuro Sensorium / Orientation: alert Motor Exam: strength 5/5 throughout Psych mental status grossly normal Skin Rashes: no rashes MDM MDM MDM Narrative Medical decision making narrative: 80-year-old with a right anterior shoulder dislocation. She has not eaten in the last 5 hours. Her last meal was around 1030. Postreduction film looked sublux. We then went back and rereduced the shoulder it moves into position well but it does not seem like it staying in position. Concern is the patient may have torn or partially torn her rotator cuff is getting subluxation. She remains in a sling and outpatient follow-up with orthopedics. All this has been discussed with her. Radiography Diagnostic Testing: Right shoulder x-ray 2 views interpreted by myself and the radiologist. Post reduction shows minor subluxation. Film was repeated and looked exactly the same as the first. Procedures Other Procedures Procedure(s): Right shoulder dislocation reduction. No obvious patient did not need to be conscious currently sedated. Using the fulcrum technique we were able to manipulate the patient's shoulder back in the place. She tolerated extremely well. She needed no medication. Post reduction x-ray shows appropriate anatomical alignment. Discharge Plan Triage Chief Complaint: Upper Extremity Injury ED Provider: Simone Kent Dx/Rx/DC Orders Clinical Impression: Anterior shoulder dislocation Instructions: ED Dislocation: Shoulder (Reduced) Prescriptions: No Action aspirin [Adult Low Dose Aspirin] 81 mg tablet,delayed release (DR/EC) 81 mg PO QDAY RF: 0 ascorbic acid (vitamin C) 500 mg tablet 500 mg PO QDAY RF: 0 atorvastatin 20 mg tablet 20 mg PO QDAY Qty: 90 RF: 3 furosemide 20 mg tablet 20 mg PO QDAY Qty: 90 RF: 3 metoprolol tartrate 50 mg tablet 50 mg PO BID Qty: 180 RF: 3 losartan 25 mg tablet 25 mg PO QDAY Qty: 90 RF: 3 amlodipine 10 mg tablet 10 mg PO QDAY Qty: 90 RF: 3 mecobalamin (vitamin B12) 1,000 mcg tablet,disintegrating 1,000 mcg sublingual DAILY RF: 0 multivitamin 1 EACH tablet 1 tab PO DAILY RF: 0 omeprazole 40 mg capsule,delayed release(DR/EC) 40 mg PO DAILY Qty: 90 RF: 1 levothyroxine 137 mcg tablet 137 mcg PO QDAY Qty: 90 RF: 1 Primary Care Provider: Jamir Guardado Referrals: Jamir Guardado DO [Primary Care Provider] - Chad Ling DO [STAFF PHYSICIAN] - As soon as possible Activity Restrictions/Additional Instructions: Call and follow-up with Dr. Deshawn Segal of orthopedics for further evaluation of your dislocated shoulder. Keep your sling on except to bathe and to sleep. Be very careful not to over extend your right shoulder because it could dislocate again. Disposition Disposition: Home, self care
[2020-09-18 15:41] VITALS: BP 136/78; PULSE 79; RESP 17; O2SAT 96
--- NOTE | 2020-09-18 16:21 | RAD_ITS ---
STUDY: X-RAY - RIGHT SHOULDER REASON FOR EXAM: Female, 80 years old. Post reduction. TECHNIQUE: 2 view(s) of the shoulder. COMPARISON: Right shoulder, 09/18/2020 ([id number]) FINDINGS: Anglican of the glenohumeral articulation. There is degenerative arthrosis of the acromioclavicular joint without inferior osseous spur formation. Normal acromion. There is demineralization of the humerus and visualized osseous structures. The soft tissue structures are unremarkable. Normal visualized pulmonary apex. RAD/Shoulder min 2 Views IMPRESSION: The reduction of the anterior right shoulder dislocation seen on the earlier study. The remainder of the findings are stable Electronically Signed: Dionisio Rodney DO at 17:16 EDT Tel [phone], Service support ,
--- NOTE | 2020-09-18 16:40 | ED.RN ---
pt right shoulder manually reduced by dr. briggs, without requiring sedation. pt tolerated well. sling applied. msps intact before and after. sedation orders cancelled.
--- NOTE | 2020-09-18 17:23 | RAD_ITS ---
STUDY: X-RAY - RIGHT SHOULDER REASON FOR EXAM: Female, 80 years old. Post reduction. TECHNIQUE: 2 view(s) of the shoulder. COMPARISON: 09/18/2020 ([id number]). FINDINGS: No change in appearance of the glenohumeral joint. There appears to be zoroastrian of normal alignment on the Y view are the AP view appears equivocal. No visualized fracture. No other interval change. RAD/Shoulder min 2 Views IMPRESSION: No major change in appearance of the shoulder when compared to the earlier study. Electronically Signed: Dionisio Rodney DO at 17:40 EDT Tel [phone], Service support ,
[2020-09-18 17:28] VITALS: BP 132/79; PULSE 78; RESP 16; O2SAT 97
--- NOTE | 2020-09-18 17:47 | ED.RN ---
PT A+OX4, EDUCATED BY THIS RN ON WRITTEN AND VERBAL DISCHARGE INSTRUCTIONS AND USING SLING/SHOULDER IMMOBILIZER AT HOME. PT EDUCATED ON A-FIB, AND TOLD TO RETURN TO ED WITH ANY NEW OR WORSENED SX SUCH CHEST PAIN, SOB, INCREASED LOWER EXTREMITY EDEMA, WEAKNESS, DIZZINESS, AND STROKE SX. PT REPORTS THAT SHE DOES NOT WANT A CARDIAC WORKUP IN ED, DESPITE EDUCATION FROM THIS RN AND DR. BOWERS. PT REPORTS SHE WANTS TO GO HOME AND FOLLOW UP WITH DR. MONTEIRO WHOM SHE SEES FOR HER HEART. PT VERBALIZES UNDERSTANDING OF DISCHARGE INSTRUCTIONS, AND DENIES ANY FURTHER QUESTIONS. IV D/C AND COVERED WITH 2X2 GAUZE AND PAPER TAPE. PRESSURE APPLIED FOR 2 MIN. BLEEDING STOPPED. PT AMBULATES OUT OF DEPT WITH SIGNIFICANT OTHER.
== END 2020-09-18 17:52 | disposition home or self-care (01) ==
LOC: ED 16:29
PROVIDERS: Emergency Provider Emergency Medicine; PCP Family Medicine
DX: S43.004A Unspecified dislocation of right shoulder joint, initial encounter (principal); I25.10 Atherosclerotic heart disease of native coronary artery without angina pectoris; I10 Essential (primary) hypertension; E78.5 Hyperlipidemia, unspecified; Z79.899 Other long term (current) drug therapy; X58.XXXA Exposure to other specified factors, initial encounter; Y93.89 Activity, other specified; Y92.009 Unspecified place in unspecified non-institutional (private) residence as the place of occurrence of the external cause; Y99.8 Other external cause status
CPT/HCPCS: 23650; 73030; 99284; J7030; A4216

== ENCOUNTER → 2020-10-08 10:40 | Outpatient (CLI) | payer MEDICARE, SELFPAY ==
[2020-10-02 15:32] VITALS: BMI 26.9
--- NOTE | 2020-10-08 10:48 | ECHOD_ITS ---
Reason For Study: AFIB/FLUTTER Procedure This was a 2D Doppler, Color Flow transthoracic echocardiogram. Exam performed in department. Left Ventricle Normal LV size. Left ventricular systolic function is normal. The estimated ejection fraction is 60 %. Unable to assess diastolic dysfunction. No regional wall motion abnormalities noted. Right Ventricle Mildly dilated right ventricle. Normal systolic function. Atria The left atrium is moderately enlarged. The right atrium is severely enlarged. No doppler evidence for ASD. Mitral Valve There is no mitral annular calcification. Anterior leaflet diffuse mitral valve thickening. Mild (1+) mitral valve insufficiency. Tricuspid Valve Mild diffuse thickening of the tricuspid valve. Moderately severe (3+) tricuspid valve insufficiency. Right ventricular systolic pressure estimated to be 37 mmHg. Aortic Valve Trisinus/trileaflet aortic valve. Normal aortic valve. Mild (1+) aortic valve insufficiency. Pulmonic Valve The pulmonic valve is not well visualized. Great Vessels Normal sized aortic root. Pericardium/Pleural No pericardial effusion. MMode/2D Measurements & Calculations LVIDd: 4.4 cm IVSd: 0.87 cm Ao root diam: 3.6 cm LVIDs: 2.9 cm LVPWd: 0.89 cm RVDd: 4.4 cm FS: 34.6 % LAV(MOD-bp): 85.2 ml LA A4 area: 25.9 cm2 LA dimension(2D): 4.8 cm LAV(MOD-bp) Indexed: 47.1 ml/m2 LAV(MOD-sp2): 77.1 ml LAV(MOD-sp4): 81.9 ml RA A4 area: 27.5 cm2 Time Measurements MV dec time: 0.19 sec Doppler Measurements & Calculations MV E max carlos: 103.9 cm/sec Lat Peak E' Carlos: 11.2 cm/sec Med Peak E' Carlos: 8.9 cm/sec E/E' lat: 9.3 E/E' med: 11.7 Ao V2 max: 113.2 cm/sec AI max carlos: 372.1 cm/sec LV V1 max: 88.6 cm/sec Ao max P.1 mmHg AI max P.5 mmHg LV V1 max P.1 mmHg Ao V2 mean: 78.3 cm/sec AI dec slope: 150.8 cm/sec2 LV V1 mean P.7 mmHg Ao mean P.7 mmHg AI P1/2t: 722.6 msec LV V1 mean: 61.5 cm/sec Ao V2 VTI: 22.7 cm LV V1 VTI: 17.9 cm PA V2 max: 74.9 cm/sec TR max carlos: 268.6 cm/sec TR max P.9 mmHg ECHO/Echo Complete Interpretation Summary Left ventricular systolic function is normal. The estimated ejection fraction is 60 %. Mildly dilated right ventricle. The left atrium is moderately enlarged. The right atrium is severely enlarged. Anterior leaflet diffuse mitral valve thickening. Mild (1+) mitral valve insufficiency. Moderately severe (3+) tricuspid valve insufficiency. Mild (1+) aortic valve insufficiency. Right ventricular systolic pressure estimated to be 37 mmHg. Unable to assess diastolic dysfunction. Ordering Physician: Faith Baumann Referring Physician: Jamir Guardado Performed By: Ary Avila RDCS, RVT
== END ==
PROVIDERS: PCP Family Medicine; Referring Provider Physician Assistant Medical; Visit Provider Physician Assistant Medical
DX: I25.10 Atherosclerotic heart disease of native coronary artery without angina pectoris (principal); I48.91 Unspecified atrial fibrillation
CPT/HCPCS: 93306

== ENCOUNTER → 2020-10-14 08:46 | Outpatient (CLI) | payer MEDICARE, SELFPAY ==
[2020-10-02 15:32] VITALS: BMI 26.9
== END ==
PROVIDERS: PCP Family Medicine; Referring Provider Physician Assistant Medical; Visit Provider Physician Assistant Medical
DX: I48.91 Unspecified atrial fibrillation (principal)
CPT/HCPCS: 93225; 93226

== ENCOUNTER 2020-10-26 03:33 | Emergency (ER) | payer MEDICARE, SELFPAY ==
[2020-10-02 15:32] VITALS: BMI 26.9
[2020-10-26 03:35] VITALS: BP 140/78; PULSE 89; RESP 16; TEMP 36.8; O2SAT 98; BMI 29.2
--- NOTE | 2020-10-26 03:51 | EKG12_ITS ---
Test Reason : DYSRHYTHMIA Blood Pressure : / mmHG Vent. Rate : 076 BPM Atrial Rate : 092 BPM P-R Int : 000 ms QRS Dur : 100 ms QT Int : 418 ms P-R-T Axes : 000 -07 056 degrees QTc Int : 470 ms Atrial fibrillation Nonspecific T wave abnormality Prolonged QT Abnormal ECG Confirmed by GERA HOPE, MARÍA ([id number]), newspaper managing editor SILVIO VIERA ([id number]) on 10/29/2020 8:41:03 AM Referred By: KAYKAY Confirmed By:MARÍA BOSS MD
--- NOTE | 2020-10-26 04:09 | RAD_ITS ---
STUDY: X-RAY CHEST REASON FOR EXAM: Female, 80 years old. sob TECHNIQUE: Single AP portable view of the chest. COMPARISON: 08/14/2020 FINDINGS: There is hyperinflation of the lungs consistent with chronic obstructive lung disease (COPD). Lungs are clear. There is no demonstrated pleural abnormality. There is mild cardiac enlargement. Normal mediastinum and salas. Normal visualized pulmonary arteries. Normal visualized aortic arch and descending thoracic aorta. There is a levoscoliosis of the thoracic spine. Normal visualized ribs, clavicles, and shoulders. There is no demonstrated abnormality of the visualized soft tissue structures of the upper abdomen. RAD/Chest 1 View (Portable) IMPRESSION: Stable COPD. Lungs are clear. Mild cardiomegaly stable. Electronically Signed: Wale Marquez DO at 4:35 EDT Tel , Service support ,
[2020-10-26 04:16] LABS: Absolute Lymphocyte Count 1.72 X10^3/uL (0.83-4.51); Absolute Neutrophil Count 5.3 X10^3/uL (2.0-7.7); Basophil# 0.03 X10^3/uL; Basophil% 0.4 % (0-1); Eosinophil# 0.06 X10^3/uL; Eosinophils% 0.8 % (0-5); Hematocrit 36.7 % (37-47); Hemoglobin 12.5 g/dL (12.0-15.0); Lymphocyte # 1.72 X10^3/ul (0.83-4.51); Lymphocyte % 22.3 % (19-41); Mean Corp Hgb Conc 34.1 g/dL (32-36); Mean Corpuscular Hgb 29.9 pg (27.0-32.0); Mean Corpuscular Volume 87.8 fL (81-99); Mean Platelet Vol. 9.1 fl (6.2-12.0); Monocyte# 0.64 X10^3/uL; Monocyte% 8.3 % (0-10); NRBC Flagged by Analyzer 0 % (0-5); Neutrophil # 5.26 X10^3/uL (2.7-7.7); Neutrophil % 67.9 % (47-70); Platelet Count 271 K/mm3 (150-450); RBC Distribution Width CV 12.1 % (11.6-14.6); Red Blood Count 4.18 M/mm3 (4.2-5.4); White Blood Count 7.7 K/mm3 (4.4-11.0)
[2020-10-26 04:35] LABS: Anion Gap 8 (5-15); BUN 16 mg/dL (7-18); BUN/Creat Ratio 23.3 RATIO (10-20); Calcium,Total 8.7 mg/dL (8.5-10.1); Chloride 91 mmol/L (98-107); Creatinine, Serum 0.69 mg/dL (0.55-1.02); EST Glomerular Filtration Rate 87 mL/min (>60); Est Glom Filt Rate - Afr Amer 106 mL/min (>60); Estimated Creatinine Clearance 37.12 ml/min; Glucose 100 mg/dL (74-106); Potassium 3.4 mmol/L (3.5-5.1); Sodium Level 125 mmol/L (136-145); Troponin-I HS 5.6 pg/mL (3.0-53.7)
[2020-10-26] MEDS: Potassium Chloride Oral Tablet 20 MEQ 40 MEQ PO (04:48)
[2020-10-26] MEDS: 0.9% Normal Saline 1,000 ML 999 ML IV (04:48)
[2020-10-26 05:02] LABS: Bacteria 0 SEEN /hpf (None Seen); Color, Urine Yellow (Yellow); Glucose, Dipstick Normal (Normal); Ketone-Dipstick 5 mg/dl (Negative); Leukocyte Esterase-Dipstick Negative /ul (Negative); Mucous, Urine 0 SEEN /hpf (<or=2+); Nitrite-Dipstick Negative (Negative); Occult Blood-Urine Negative /ul (Negative); Protein-Dipstick Negative (Negative); Red Blood Cells-Urine 0 SEEN /hpf (0-5); Specific Gravity, Urine 1.015 (1.002-1.030); Urine Bilirubin Dipstick Negative (Negative); Urine Clarity Clear (Clear); Urine Urobilinogen Normal (Normal); White Blood Cells 0 SEEN /hpf (0-5)
[2020-10-26 05:12] LABS: Squamous Epithelial Cells - UA 0-5 SEEN /hpf (5-10)
--- NOTE | 2020-10-26 06:25 | EDS_ITS ---
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 Patient states that she is with not been able to sleep. She was up pacing the floors. She did dislocate her shoulder 6 weeks ago and is still in a sling. She states at that time she was found to have A. fib and was started on Eliquis. Patient states that she has had episodes like this in the past even before this recent diagnosis and medication change. She states she will feel very anxious, mild shortness of breath, and a tingling/burning sensation in her feet. [facility] Medical History Atherosclerotic heart disease of [place] coronary artery without angina pectoris Chest discomfort Dyspnea Essential (primary) hypertension Fatigue Hernia HLD (hyperlipidemia) Mitral insufficiency, acute New onset atrial fibrillation Non-rheumatic tricuspid valve insufficiency Nonrheumatic aortic (valve) insufficiency Nonrheumatic mitral (valve) insufficiency Pure hypercholesterolemia Home Medications ascorbic acid (vitamin C) 500 mg tablet 500 mg PO QDAY 09/14/17 [History Last Taken Unknown] aspirin 81 mg tablet,delayed release 81 mg PO QDAY 09/14/17 [History Last Taken Unknown] multivitamin 1 tab PO DAILY 06/29/18 [History Last Taken Unknown] amlodipine 10 mg tablet 10 mg PO QDAY #90 tab 06/20/20 [Rx Last Taken Unknown] atorvastatin 20 mg tablet 20 mg PO QDAY #90 tab 06/20/20 [Rx Last Taken Unknown] losartan 25 mg tablet 25 mg PO QDAY #90 tab 06/20/20 [Rx Last Taken Unknown] metoprolol tartrate 50 mg tablet 50 mg PO BID #180 tab 06/20/20 [Rx Last Taken Unknown] omeprazole 40 mg capsule,delayed release 40 mg PO DAILY #90 cap 06/24/20 [Rx Last Taken Unknown] levothyroxine 137 mcg tablet 137 mcg PO QDAY #90 tablet 08/15/20 [Rx Last Taken Unknown] mecobalamin (vitamin B12) 1,000 mcg disintegrating tablet,sublingual 1,000 mcg SUBLINGUAL DAILY 09/18/20 [History Last Taken Unknown] apixaban 2.5 mg tablet 2.5 mg PO BID #60 tab 09/20/20 [Rx Last Taken Unknown] furosemide 40 mg tablet 40 mg PO QDAY #90 tab 10/02/20 [Rx Last Taken Unknown] Allergy/AdvReac Type Severity Reaction Status Date / Time No Known Allergies Allergy Verified 10/02/20 15:55 Family History Mother CVA (cerebral vascular accident) Brother CAD (coronary artery disease) Sister CAD (coronary artery disease) Myocardial infarction Son CAD (coronary artery disease) Surgical History History of appendectomy History of bladder suspension procedure History of hernia repair History of hysterectomy History of repair of hiatal hernia History of thyroidectomy History of tubal ligation Social History Smoking Status: Never smoker alcohol intake: never substance use type: does not use caffeine: No what type of physical activity do you participate in: other details: [employer] ROS ED Constitutional Constitutional ED: Denies chills or fever(s) Eyes Eyes: Denies change in vision ENT ENT ED: Denies sore throat Cardiovascular Cardiovascular: Denies chest pain Respiratory/Chest Respiratory/Chest: Reports dyspnea; Denies cough Gastrointestinal Gastrointestinal: Denies abdominal pain, diarrhea, nausea or vomiting Genitourinary Genitourinary ED: Denies dysuria Musculoskeletal Musculoskeletal: Reports myalgias; Denies back pain Integumentary Denies rash Neurologic Neurologic: Reports other Details: Burning sensation in feet ; Denies headache (s) or weakness Psychiatric Psychiatric: Denies anxiety or depression Endocrine Endocrinology: Denies polydipsia or polyuria Allergic/Immunologic Allergic/Immunologic ED: Denies urticaria EXAM Physical Exam Const Vital Signs: 10/26/20 03:35 10/26/20 03:44 10/26/20 06:38 Temperature 98.2 F Temperature Source Temporal Pulse Rate 89 Respiratory Rate 16 17 Respiratory Pattern Normal Blood Pressure 140/78 H Blood Pressure Mean 98 Pulse Ox 98 Oxygen Delivery Method Room Air Positive well nourished and well developed General Appearance ED: well developed HEENT Reports normocephalic and head/scalp atraumatic Eyes PERRL and EOMs intact bilaterally Neck supple Chest Wall inspection of chest normal and palpation of chest normal Resp normal respiratory effort and clear to auscultation bilaterally Cardio Rhythm: abnormal rhythm irregularly irregular GI normal to inspection, nondistended, normoactive bowel sounds Palpation: soft Extremity Extremity Narrative: Right upper extremity in a sling. No significant lower extremity edema. Neuro oriented x3 Sensorium / Orientation: alert Psych mental status grossly normal Skin no rashes or lesions noted MDM MDM MDM Narrative Medical decision making narrative: EKG, lab work, urinalysis are obtained. Lab Data Attestation: I reviewed the patient's lab results. Labs: Laboratory Results - last 24 hr 10/26/20 10/26/20 10/26/20 04:05 04:05 04:45 WBC 7.7 RBC 4.18 L Hgb 12.5 Hct 36.7 L MCV 87.8 MCH 29.9 MCHC 34.1 RDW Std Deviation 39.0 RDW Coeff of Koko 12.1 Plt Count 271 MPV 9.1 Immature Gran % (Auto) 0.300 Neut % (Auto) 67.9 Lymph % (Auto) 22.3 [place] % (Auto) 8.3 Eos % (Auto) 0.8 Baso % (Auto) 0.4 Absolute Neuts (auto) 5.3 Absolute Lymphs (auto) 1.72 Nucleated RBC % 0 Sodium 125 L Potassium 3.4 L Chloride 91 L Carbon Dioxide 26.0 Anion Gap 8 BUN 16 Creatinine 0.69 Estim Creat Clear Calc 37.12 Est GFR (MDRD) Af Amer 106 Est GFR (MDRD) Non-Af 87 BUN/Creatinine Ratio 23.3 H Glucose 100 Calcium 8.7 Troponin I High Sens 5.6 Urine Color Yellow Urine Clarity Clear Urine pH 6.0 Ur Specific Alexander 1.015 Urine Protein Negative Urine Glucose (UA) Normal Urine Ketones 5 H Urine Occult Blood Negative Urine Nitrite Negative Urine Bilirubin Negative Urine Urobilinogen Normal Ur Leukocyte Esterase Negative Urine RBC 0 SEEN Urine WBC 0 SEEN Ur Squamous Epith Cells 0-5 SEEN Urine Bacteria 0 SEEN Urine Mucus 0 SEEN Radiography Chest X-Ray - ED: 1 View, Read by ED Physician and Chronic Changes Diagnostic Testing: Radiology Impression Chest X-Ray 10/26/20 04:09 IMPRESSION: Stable COPD. Lungs are clear. Mild cardiomegaly stable. Electronically Signed: Wale Marquez DO at 4:35 EDT Tel , Service support , EKG Initial EKG: Attestation: I personally reviewed and interpreted this EKG as follows: Interpretation: Atrial Fibrillation (A. fib at 76. T wave flattening. No acute ST change.) Treatment and Re-Evaluation Comments:: Portable chest x-ray per my interpretation shows chronic changes only. EKG reveals atrial fibrillation with diffuse T wave flattening. Blood work is reviewed and unremarkable including a negative troponin. Patient's sodium and potassium are slightly low. She is given a liter IV fluids and oral potassium replacement. Patient states she did recently start taking some water pills. She was encouraged to follow-up with her primary care physician for repeat labs to ensure they are not dropping again. I also advised her to follow-up with her PCP regarding the burning sensation in her feet as she may require treatment for neuropathy. Discharge Plan Triage Chief Complaint: Anxiety ED Provider: Falguni Glass Dx/Rx/DC Orders Clinical Impression: Restlessness, Hyponatremia, Hypokalemia, Neuropathy Instructions: What Is Peripheral Neuropathy, ED Hyponatremia, ED Hypokalemia Prescriptions: No Action aspirin [Adult Low Dose Aspirin] 81 mg tablet,delayed release (DR/EC) 81 mg PO QDAY RF: 0 ascorbic acid (vitamin C) 500 mg tablet 500 mg PO QDAY RF: 0 atorvastatin 20 mg tablet 20 mg PO QDAY Qty: 90 RF: 3 metoprolol tartrate 50 mg tablet 50 mg PO BID Qty: 180 RF: 3 losartan 25 mg tablet 25 mg PO QDAY Qty: 90 RF: 3 amlodipine 10 mg tablet 10 mg PO QDAY Qty: 90 RF: 3 mecobalamin (vitamin B12) 1,000 mcg tablet,disintegrating 1,000 mcg sublingual DAILY RF: 0 furosemide 40 mg tablet 40 mg PO QDAY Qty: 90 RF: 3 multivitamin 1 EACH tablet 1 tab PO DAILY RF: 0 omeprazole 40 mg capsule,delayed release(DR/EC) 40 mg PO DAILY Qty: 90 RF: 1 levothyroxine 137 mcg tablet 137 mcg PO QDAY Qty: 90 RF: 1 apixaban 2.5 mg tablet 2.5 mg PO BID Qty: 60 RF: 11 Primary Care Provider: Jamir Guardado Referrals: Jamir Guardado, DO [Primary Care Provider] - 1-2 Weeks Activity Restrictions/Additional Instructions: As discussed, please have your doctor check your sodium and potassium levels to ensure they are not dropping again. You may want to speak with him regarding the neuropathy symptoms in your lower legs as well. Disposition Disposition: Home, Self Care Discharge Date/Time: 10/26/20 06:39
[2020-10-26 06:38] VITALS: RESP 17
== END 2020-10-26 06:39 | disposition home or self-care (01) ==
PROVIDERS: Emergency Provider Emergency Medicine; PCP Family Medicine
DX: E87.1 Hypo-osmolality and hyponatremia (principal); E87.6 Hypokalemia; G62.9 Polyneuropathy, unspecified; R45.1 Restlessness and agitation; I48.91 Unspecified atrial fibrillation; I25.10 Atherosclerotic heart disease of native coronary artery without angina pectoris; I10 Essential (primary) hypertension; E78.5 Hyperlipidemia, unspecified; Z79.02 Long term (current) use of antithrombotics/antiplatelets; Z79.899 Other long term (current) drug therapy
CPT/HCPCS: 71045; 80048; 81001; 84484; 85025; 93005; 96360; 99285; J7030; A4216

== ENCOUNTER → 2020-10-29 14:24 | Outpatient (CLI) | payer MEDICARE, SELFPAY ==
[2020-10-29 13:43] VITALS: BMI 29.2
[2020-10-29 16:44] LABS: Anion Gap 9 (5-15); BUN 12 mg/dL (7-18); BUN/Creat Ratio 17.7 RATIO (10-20); Calcium,Total 8.8 mg/dL (8.5-10.1); Chloride 89 mmol/L (98-107); Creatinine, Serum 0.68 mg/dL (0.55-1.02); EST Glomerular Filtration Rate 89 mL/min (>60); Est Glom Filt Rate - Afr Amer 107 mL/min (>60); Glucose 102 mg/dL (74-106); Potassium 3.9 mmol/L (3.5-5.1); Sodium Level 125 mmol/L (136-145); T4 Free Direct 1.49 ng/dL (0.76-1.46); Thyroid Stim Hormone (TSH) 2.79 uIU/mL (0.358-3.74)
[2020-10-29 16:51] LABS: Vitamin B12 > 2000 pg/mL (211-911)
== END ==
PROVIDERS: PCP Family Medicine; Referring Provider Physician Assistant; Visit Provider Physician Assistant
DX: E87.1 Hypo-osmolality and hyponatremia (principal); E87.6 Hypokalemia; I10 Essential (primary) hypertension; R20.2 Paresthesia of skin
CPT/HCPCS: 36415; 80048; 82607; 84439; 84443

== ENCOUNTER → 2020-11-05 07:00 | Outpatient (CLI) | payer MEDICARE, SELFPAY ==
[2020-10-31 14:51] VITALS: BMI 27.4
[2020-11-05 08:08] LABS: Anion Gap 6 (5-15); BUN 9 mg/dL (7-18); BUN/Creat Ratio 12.5 RATIO (10-20); Calcium,Total 8.8 mg/dL (8.5-10.1); Chloride 98 mmol/L (98-107); Creatinine, Serum 0.72 mg/dL (0.55-1.02); EST Glomerular Filtration Rate 82 mL/min (>60); Est Glom Filt Rate - Afr Amer 100 mL/min (>60); Glucose 94 mg/dL (74-106); Potassium 4.1 mmol/L (3.5-5.1); Sodium Level 131 mmol/L (136-145)
== END ==
PROVIDERS: PCP Family Medicine; Referring Provider Physician Assistant Medical; Visit Provider Physician Assistant Medical
DX: E87.1 Hypo-osmolality and hyponatremia (principal)
CPT/HCPCS: 36415; 80048

== ENCOUNTER 2021-01-29 11:00 | Outpatient (RCR) | payer MEDICARE, SELFPAY ==
[2020-10-31 14:51] VITALS: BMI 27.4
--- NOTE | 2020-12-02 11:46 | HP.PTEVAL ---
Patient's Visit Information JULIENNE FINNEY is a 80 year old F referred to Physical Therapy by Dr. José Luis Rebollar MD with a diagnosis of S/P REVERSE ARTHROPLASTY OF R SHOULDER. Date of Evaluation: 12/02/20 Physical Therapist: Chiquis Wiggins, PT, Cert MDT - Visit Plan Frequency: 2-3x /Week Duration: 4-6 Weeks Plan: POSTURE CORRECTION. RIGHT SHOULDER REHAB S/P REVERSE ARTHROPLASTY 11/18/20 PER PROTOCOL (IN WORK ROOM) PROGRESSING TOLERATED AND STARTING WITH PHASE I. KEEP EX PAINFREE. - Subjective Work/Leisure: RETIRED. LIVES WITH HER BOYFRIEND WHO IS ABLE TO HELP WITH MEALS AND CHORES. ALSO HAS TWO DAUGHTERS THAT CHECK IN ON HER. Present symptoms: INTERMITTENT MILD RIGHT UPPER TRAP/SHOULDER PAIN. STATES SHE REALLY HASN'T HAD MUCH PAIN BUT DID HAVE SOME PAIN LAST NIGHT. Present since: OCTOBER 2020. Pain Scale: Worst - 5/10 Least - 0/10. Currently: 0/10. Commenced as a result of: OUT HELPING PUT A CANAPY ON A SWING AND WAS PUSHING REAL HARD AND MY SHOULDER POPPED. Symptoms at onset: REALLY BAD SHLD PAIN. Worse: WEARING SLING TOO TIGHT. BEING NERVOUS. NOT USING ARM AND JUST MOVING FINGERS. STATES SHE HAS BEEN REAL CAREFUL BECAUSE SHE DOESN'T WANT TO HURT IT AGAIN. Better: ICE, PAIN PILLS ONCE A DAY AT NIGHT. Disturbed sleep: YES - SLEEPING IN RECLINER. Previous history/Previous treatment: NO PRIOR RIGHT UE INJURIES. NO NECK INJURIES. This episode: S/P REVERSE ARTHROPLASTY OF RIGHT SHOULDER 11/18/20 (2 WKS PO). PATIENT REPORTS HAVING ONE PT VISIT BEFORE SURGERY AND ONE PT VISIT THE DAY AFTER SURGERY BEFORE BEING DISCHARGED HOME. Dizziness: NO. Tinnitis: NO. Nausea: NO. Shortness of Breath: YES (NOT NEW). Difficulty Swollowing: NO. Gait: NORMAL. Accidents: NO. Unexplained weight loss: NO. Imaging: MRI BEFORE SURGERY. RECENT X-RAY OR R SHOULDER ABOUT A WEEK AGO AND SHE REPORTS THEY TOLD HER IT LOOKS REAL GOOD. PMH/Recent major surgery: A-FIB, HERNIA WITH SURGERY 2.5 YEARS AGO BUT SHE THINKS IT HAS COME BACK AND HAS BEEN TO THE DOCTOR RECENTLY. HTN. - Objective PATIENT REPORTS SHE HAD ONE PT MARGARET'T BEFORE SURGERY AND ONE PT VISIT THE DAY AFTER SURGERY BEFORE BEING DISCHARGED HOME. SHE REPORTS THAT HER DAUGHTER WENT WITH HER TO THE FIRST MARGARET'T TO LEARN HOW TO HELP HER WITH THE EX'S. PATIENT CAME BACK TO PT SESSION ALONE TODAY AND WAS DROPPED OFF BY A DIFFERENT DAUGHTER. PATIENT REPORTS SHE STARTED THE HAND EX'S BEFORE SURGERY AND HER DAUGHTER HAS BEEN HELPING HER WITH THE SHOULDER ONES 2X'S A DAY. PATIENT DESCRIBES PENDUMS, AROM OF HAND AND FOREARM, AND SCAP SQUEEZES. PROM INTO FLEX AND EXTERNAL ROTATION WITH THE HELP OF HER DAUGHTER. UPON EXAM TODAY: PATIENT HAS 74 DEG PROM INTO R SHLD FLEXION AND 25 DEG PASSIVE EXTERNAL ROTATION IN SUPINE WITH THIS THERAPIST ASSIST. PATIENT REPORTS HER DAUGHTER DOES NOT TAKE IT FAR AND WHEN PATIENT REPORTED PAIN TODAY THIS PT STOPPED. SHE HAS FULL RIGHT FOREARM, WRIST AND HAND AROM BUT RIGHT SHOULDER EXTENSION IS -32 DEG. RIGHT ELBOW ACTIVE FLEXION IS WFL. SHE IS VERY PLEASANT AND COOPERATIVE TO WORK WITH AND RELAXED WITH REPETITION. SHE TOLERATED ALL EX'S WELL AND PERFORMED PENDULUM EX'S WITH GOOD TECHNIQUE TOO. TABLE WALK AWAYS FOR GENTLE PASSIVE FLEXION WERE ADDED TO HEP WITH GOOD RETURN DEMO. INCISION LOOKS GOOD WITHOUT ANY SIGNS OF INFECTION. INSTRUCTED PATIENT TO CONTINUE HEP AND ADD NEW EX IN PAINFREE RANGE. PATIENT'S DAUGHTER WAS NOT HERE FOR INSTRUCTION BUT PATIENT WAS INSTRUCTED IN WHAT TO TELL DAUGHTER. PATIENT HAS MILD RIGHT SHOULDER EDEMA BUT POOR POSTURE WITH FORWARD HEAD AND ROUNDED SHOULDERS. - Balance/Special Test Scores Quick DASH Score: [phone] - Goals Goal 1:: DECREASE C/O RIGHT SHOULDER PAIN Goal Time Frame: 6-8 Weeks Goal 2:: IMPROVE FUNCTIONAL ROM OF RIGHT SHOULDER TO EASE ADL'S ALLOWED BY PROTOCOL. Goal Time Frame: 6-8 Weeks Goal 3:: IMPROVE FUNCTIONAL STRENGTH OF RIGHT UE TO EASE ADL'S ALLOWED BY PROTOCOL. Goal Time Frame: 6-8 Weeks Goal 4:: PATIENT WILL BE INDEP WITH A HEP FOR CONTINUED IMPROVEMENT ONCE FORMAL PHYSICAL THERAPY CONCLUDES. Goal Time Frame: 6-8 Weeks - Anticipated Interventions Patient/Client Instruction: Educate patient on: Condition, Plan of Care, Risk Factors For the Purpose of:: To improve self management Therapeutic Exercise to Include: Strength training, Postural training, Flexibilty training, Neuromotor development, Passive ROM, Active ROM, Scapular Strength/Stabilization For the Purpose of:: To decrease pain, To increase ROM, To improve muscle performance and motor function, To increase tolerance to activity/condition/position, To improve performance and independence with ADL's, To improve ability of physical actions for home/community/work/leisure, To increase flexibility/ROM Thank you for the opportunity to evaluate your patient. For Medicare and Medicare HMO plans, please review the plan of care and approve it. It will need to be FAXED BACK to us at [phone] for Medicare purposes. For Medicare only, by signing this I certify the plan of care. Please let me know if there are questions or concerns regarding this plan of care. Physician Signature: Date:
--- NOTE | 2021-01-02 14:44 | HP.PTREVAL ---
Dr. José Luis Rebollar MD, It has been my pleasure to treat JULIENNE FINNEY over the last 9 visits for S/P REVERSE ARTHROPLASTY OF R SHOULDER. Please see the progress note below for an update on the physical therapy plan of care! Subjective: PATIENT REPORTS SHE IS MOVING HER ARM A LOT BETTER NOW AND SHE DOESN'T HAVE PAIN. DOING HEP 2X'S A DAY. EVEN THE DOCTOR WAS SURPRISED HOW GOOD MY ARM IS DOING. UPON QUESTIONING PATIENT DOES ADMIT TO TAKING TYLONOL WHEN RIGHT UE GETS SORE. Objective/Function: PATIENT WAS SEEN TODAY FOR RE-ASSESSMENT OF PROGRESS TOWARD THE SET PT GOALS AND THE NEED FOR FURTHER PHYSICAL THERAPY VS READINESS FOR DISCHARGE. SHE IS MAKING GOOD PROGRESS TOWARD ALL PT GOALS AND IS A GOOD CANDIDATE TO CONTINUE PT BASED ON PROGRESS MADE AND ROOM FOR FUTHER IMPROVEMENT. PATIENT IS AGREEABLE AND WANTS TO CONTINUE THERAPY. WE HAVE BEEN LIMITED IN PROGRESSION BY HEALING TIME AND PROTOCOL SO FAR BUT SHE HAS NOW APPROPRIATE TO PROGRESS TO PHASE 3 SHLD REHAB AND SHE NEEDS SKILLED INTERVENTION TO DO SO. UPON EXAM TODAY: PATIENT HAS 114 DEG PROM INTO R SHLD FLEXION AND 35 DEG PASSIVE EXTERNAL ROTATION IN SUPINE WITH THIS THERAPIST ASSIST. SHE IS ABLE TO ACTIVELY FLEX HER SHLD TO 90 DEG IN SITTING. STRENGTH: R SHLD FLEX 2+/5, ABD 2-/5, ER 2+/5, ELBOW FLEX 4/5, ELBOW EXT 4-/5. PATIENT REPORTS HER DAUGHTER IS STILL HELPING HER MOVE HER ARM. SHE HAS FULL RIGHT FOREARM, WRIST AND HAND AROM AND RIGHT ELBOW EXTENSION IS FULL NOW. RIGHT ELBOW ACTIVE FLEXION IS WFL. PATIENT IS ABLE TO REACH TO THE BACK OF HER HEAD WITH HER RIGHT UE NOW AND SHE IS ABLE TO REACH WITH HER RIGHT UE TO ASSIST WITH TYING HER SHOES. SHE IS VERY PLEASANT AND COOPERATIVE TO WORK WITH. Plan Plan: RECOMMEND CONTINUED PT 2X'S A WEEK X 10 MORE VISITS TO PROGESS WITH POSTURE CORRECTION/STRENGTHENING AND RIGHT SHOULDER REHAB S/P REVERSE ARTHROPLASTY 11/18/20 PER PROTOCOL (IN WORK ROOM) PROGRESSING TOLERATED INTO PHASE 3. CONTINUE TO KEEP EX PAINFREE. PATIENT IS AGREEABLE. Balance/Gait/Functional tests - Balance/Special Test Scores Quick DASH Score: [id number] Goals Goal 1:: DECREASE C/O RIGHT SHOULDER PAIN Goal Time Frame: 6-8 Weeks Goal Progress: Progressing Goal 2:: IMPROVE FUNCTIONAL ROM OF RIGHT SHOULDER TO EASE ADL'S ALLOWED BY PROTOCOL. Goal Time Frame: 6-8 Weeks Goal Progress: Progressing Goal 3:: IMPROVE FUNCTIONAL STRENGTH OF RIGHT UE TO EASE ADL'S ALLOWED BY PROTOCOL. Goal Time Frame: 6-8 Weeks Goal Progress: Progressing Goal 4:: PATIENT WILL BE INDEP WITH A HEP FOR CONTINUED IMPROVEMENT ONCE FORMAL PHYSICAL THERAPY CONCLUDES. Goal Time Frame: 6-8 Weeks Goal Progress: Progressing Anticipated Interventions Patient/Client Instruction: Educate patient on: Condition, Plan of Care, Risk Factors For the Purpose of:: To improve self management Therapeutic Exercise to Include: Strength training, Postural training, Flexibilty training, Neuromotor development, Passive ROM, Active ROM, Scapular Strength/Stabilization For the Purpose of:: To decrease pain, To increase ROM, To improve muscle performance and motor function, To increase tolerance to activity/condition/position, To improve performance and independence with ADL's, To improve ability of physical actions for home/community/work/leisure, To increase flexibility/ROM Please do not hesitate to contact me at [phone] by phone or if you have questions or concerns regarding this new plan of care! Sincerely, Chiquis Wiggins, PT, Cert MDT
--- NOTE | 2021-01-29 14:23 | HP.PTDCSUM ---
It has been my pleasure to treat JULIENNE FINNEY referred by Dr. José Luis Pineda MD, with the diagnosis of S/P REVERSE ARTHROPLASTY OF R SHOULDER for a total of 12 visit(s). Discharge Date: 01/29/21 Please see the following information for a summary of their discharge status. Subjective: PATIENT REPORTS SHE SAW DR. PINEDA AGAIN AND HE RELEASED HER UNTIL FOLLOW UP IN MAY 2021. PATIENT REPORTS DR. PINEDA IS VERY HAPPY WITH HER PROGRESS AND TOLD HER SHE IS DOING BETTER THAN SOME YOUNGER PEOPLE WITH THIS SURGERY. STATES SHE TOLD HIM SHE ONLY HAS ONE MORE APPROVED PT VISIT AND HE TOLD HER WE COULD SHOW HER SOME TOUGHER EX'S TODAY. STATES SHE WAS HAPPY TO BE ABLE TO GET HER RIGHT ARM UP HIGH ENOUGH TO HAVE A CAT SCAN YESTERDAY FOR HER HER HERNIA. PATIENT REPORTS SHE FEELS LIKE HER SHLD IS DOING REALLY GOOD. 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 % Improvement: 60 Objective/Function: PATIENT WAS SEEN TODAY FOR RE-ASSESSMENT OF PROGRESS TOWARD THE SET PT GOALS AND THE NEED FOR FURTHER PHYSICAL THERAPY VS READINESS FOR DISCHARGE. SHE IS MAKING GOOD PROGRESS TOWARD ALL PT GOALS AND IS A GOOD CANDIDATE TO CONTINUE PT BASED ON PROGRESS MADE AND ROOM FOR FUTHER IMPROVEMENT BUT AT THIS TIME SHE NO LONGER HAS INSURANCE APPROVAL THEREFORE WANTS TO CONTINUE WITH HEP. UPON EXAM TODAY: PATIENT HAS 146 DEG PROM INTO R SHLD FLEXION, 130 DEG SCAPTION, 55 DEG PASSIVE EXTERNAL ROTATION AND 70 DEG IR IN SUPINE WITH THIS THERAPIST ASSIST. SHE IS ABLE TO ACTIVELY FLEX HER SHLD TO 108 DEG IN SITTING. STRENGTH: R SHLD FLEX 2+/5, ABD 2-/5, ER 3-/5, IR 4-/5 ELBOW FLEX 5/5, ELBOW EXT 4/5. HEP PROGRESSION GIVEN TODAY WITH GOOD CHALLENGE AND PROGRESS. THIS THERAPIST CONTINUES TO EMPHASIZE GENTLY PRESSING TOWARD FULL RANGE BUT TO AVOID PAIN. PATIENT COMMUNICATED A GOOD UNDERSTANDING OF ALL INSTRUCTIONS AFTER GIVEN. Goal 1:: DECREASE C/O RIGHT SHOULDER PAIN Goal Progress: Progressing Goal 2:: IMPROVE FUNCTIONAL ROM OF RIGHT SHOULDER TO EASE ADL'S ALLOWED BY PROTOCOL. Goal Progress: Progressing Goal 3:: IMPROVE FUNCTIONAL STRENGTH OF RIGHT UE TO EASE ADL'S ALLOWED BY PROTOCOL. Goal Progress: Progressing Goal 4:: PATIENT WILL BE INDEP WITH A HEP FOR CONTINUED IMPROVEMENT ONCE FORMAL PHYSICAL THERAPY CONCLUDES. Goal Progress: Progressing Plan: D/C TO HEP AND FOLLOW UP WITH DR. PINEDA. PATIENT AGREEABLE. If there are questions or concerns regarding this patient's physical therapy, please feel free to call me at [phone]. Thank you for the referral of this patient. Sincerely, Chiquis Wiggins, PT, Cert MDT Balance/Gait/Functional tests - Balance/Special Test Scores Quick DASH Score: [phone]
== END 2021-01-29 19:00 | disposition home or self-care (01) ==
LOC: PT 11:00
PROVIDERS: PCP Family Medicine; Referring Provider Orthopaedic Surgery; Visit Provider Orthopaedic Surgery
DX: Z47.1 Aftercare following joint replacement surgery (principal); Z96.611 Presence of right artificial shoulder joint
CPT/HCPCS: 97110; 97140; 97162; 97164; 97530

== ENCOUNTER → 2021-08-28 | Outpatient (CLI) | payer MEDICARE, SELFPAY ==
[2021-08-28 15:19] LABS: Absolute Neutrophil Count 6.3 X10^3/uL (2.0-7.7); Basophil# 0.05 X10^3/uL; Basophil% 0.5 % (0-1); Eosinophil# 0.12 X10^3/uL; Eosinophils% 1.2 % (0-5); Hematocrit 39.9 % (37-47); Hemoglobin 13.1 g/dL (12.0-15.0); Lymphocyte % 27.1 % (19-41); Mean Corp Hgb Conc 32.8 g/dL (32-36); Mean Corpuscular Hgb 30.9 pg (27.0-32.0); Mean Corpuscular Volume 94.1 fL (81-99); Mean Platelet Vol. 9.7 fl (6.2-12.0); Monocyte# 0.74 X10^3/uL; Monocyte% 7.4 % (0-10); NRBC Flagged by Analyzer 0 % (0-5); Neutrophil # 6.33 X10^3/uL (2.7-7.7); Neutrophil % 63.5 % (47-70); Platelet Count 278 K/mm3 (150-450); RBC Distribution Width CV 12.9 % (11.6-14.6); RBC Distribution Width SD 44.2 fl (35.1-43.9); Red Blood Count 4.24 M/mm3 (4.2-5.4)
[2021-08-28 15:34] LABS: Anion Gap 4 (5-15); BUN 21 mg/dL (7-18); BUN/Creat Ratio 29.1 RATIO (10-20); Calcium,Total 8.8 mg/dL (8.5-10.1); Chloride 101 mmol/L (98-107); Creatinine, Serum 0.72 mg/dL (0.55-1.02); EST Glomerular Filtration Rate 82 mL/min (>60); Est Glom Filt Rate - Afr Amer 100 mL/min (>60); Glucose 102 mg/dL (74-106); Sodium Level 133 mmol/L (136-145)
== END | disposition home or self-care (01) ==
LOC: BIMLAB 13:26
PROVIDERS: PCP Family Medicine; Referring Provider Family Medicine; Visit Provider Family Medicine
DX: R53.83 Other fatigue (principal); E03.9 Hypothyroidism, unspecified
CPT/HCPCS: 36415; 80048; 84443; 85025

== ENCOUNTER → 2021-11-11 | Outpatient (CLI) | payer MEDICARE, SELFPAY ==
[2021-11-11 16:45] LABS: Absolute Lymphocyte Count 2.61 X10^3/uL (0.83-4.51); Absolute Neutrophil Count 5.7 X10^3/uL (2.0-7.7); Basophil# 0.04 X10^3/uL; Basophil% 0.4 % (0-1); Eosinophil# 0.05 X10^3/uL; Eosinophils% 0.5 % (0-5); Hematocrit 38.3 % (37-47); Hemoglobin 12.7 g/dL (12.0-15.0); Lymphocyte # 2.61 X10^3/ul (0.83-4.51); Lymphocyte % 28.4 % (19-41); Mean Corp Hgb Conc 33.2 g/dL (32-36); Mean Corpuscular Hgb 31.3 pg (27.0-32.0); Mean Corpuscular Volume 94.3 fL (81-99); Mean Platelet Vol. 9.6 fl (6.2-12.0); Monocyte# 0.78 X10^3/uL; Monocyte% 8.5 % (0-10); NRBC Flagged by Analyzer 0 % (0-5); Neutrophil # 5.67 X10^3/uL (2.7-7.7); Neutrophil % 61.9 % (47-70); Platelet Count 331 K/mm3 (150-450); RBC Distribution Width CV 12.7 % (11.6-14.6); RBC Distribution Width SD 43.8 fl (35.1-43.9); Red Blood Count 4.06 M/mm3 (4.2-5.4); White Blood Count 9.2 K/mm3 (4.4-11.0)
[2021-11-11 17:02] LABS: Vitamin B12 1799 pg/mL (211-911)
[2021-11-11 17:07] LABS: AST(SGOT) 23 U/L (15-37); Alanine Aminotransfer ALT/SGPT 28 U/L (13-56); Albumin, Serum 3.7 g/dL (3.2-5.0); Alkaline Phosphatase 103 U/L (45-117); Anion Gap 4 (5-15); BUN 12 mg/dL (7-18); BUN/Creat Ratio 18.8 RATIO (10-20); Calcium,Total 8.7 mg/dL (8.5-10.1); Chloride 96 mmol/L (98-107); Creatinine, Serum 0.64 mg/dL (0.55-1.02); EST Glomerular Filtration Rate 95 mL/min (>60); Est Glom Filt Rate - Afr Amer 115 mL/min (>60); Globulin 3.6 g/dL (2.2-4.2); Glucose 97 mg/dL (74-106); Potassium 4.4 mmol/L (3.5-5.1); Protein, Total 7.3 g/dL (6.4-8.2); Sodium Level 131 mmol/L (136-145); T4 Free Direct 1.23 ng/dL (0.76-1.46); Thyroid Stim Hormone (TSH) 9.79 uIU/mL (0.358-3.74)
== END | disposition home or self-care (01) ==
LOC: BIMLAB 14:57
PROVIDERS: PCP Family Medicine; Referring Provider Physician Assistant; Visit Provider Physician Assistant
DX: I10 Essential (primary) hypertension (principal); G62.9 Polyneuropathy, unspecified; R45.1 Restlessness and agitation; E03.9 Hypothyroidism, unspecified
CPT/HCPCS: 36415; 80053; 82607; 84439; 84443; 85025

== ENCOUNTER 2021-11-13 02:32 | Inpatient (IN) | payer MEDICARE, SELFPAY ==
[2021-11-13] VITALS (9 sets, daily range): BP systolic 134–167; BP diastolic 79–93; PULSE 76–99; RESP 16–22; TEMP 36.2–37.6; O2SAT 90–97; BMI 31.4; BMI 29.5
--- NOTE | 2021-11-13 03:17 | RAD_ITS ---
STUDY: X-RAY CHEST REASON FOR EXAM: Female, 81 years old. fall TECHNIQUE: AP portable. 3:52 AM. COMPARISON: 10/26/2020. FINDINGS: LUNGS: No consolidation. Blunting of the left costophrenic angle adjacent reticular opacities unchanged likely scarring. No pneumothorax. MEDIASTINUM: Aorta tortuous and atherosclerotic. CARDIAC SILHOUETTE: Mildly enlarged. BONES AND SOFT TISSUES: Surgical hardware in the right shoulder. Degenerative changes in the dorsal spine. RAD/Chest 1 View (Portable) IMPRESSION: No evidence of acute intrathoracic disease. Stable cardiomegaly. Electronically Signed: Yoli Hobson MD at 4:26 EDT ,
--- NOTE | 2021-11-13 03:17 | CT_ITS ---
STUDY: CT BRAIN WITHOUT CONTRAST REASON FOR EXAM: Female, 81 years old. head injury RADIATION DOSAGE (If Supplied By Facility): CTDIvol = ( 44.99 ) mGy, DLP = ( 846.73 ) mGycm TECHNIQUE: Transaxial CT imaging of the brain was performed without administration of intravenous contrast material. Individualized dose optimization techniques were used for this CT. COMPARISON: No relevant priors. FINDINGS: BRAIN: No acute bleed. No edema. Decreased attenuation in the periventricular white matter bilaterally. Mistry-white matter differentiation is maintained. Arterial calcifications. VENTRICLES AND SULCI: Not dilated. EXTRA-AXIAL: 2.4 cm hyperattenuating extra-axial mass with calcifications in the posterior fossa retrocerebellar along the inferior margin of the tentorium just to the left of midline consistent with meningioma. There is mild mass effect on the adjacent left cerebellar hemisphere. No acute extra-axial hematoma. CALVARIUM / SKULL BASE: Unremarkable. FACE/SINUSES: Unremarkable. SOFT TISSUES: Unremarkable. CT/Brain/Head without Contrast IMPRESSION: No evidence of acute intracranial injury. Posterior fossa extra-axial mass consistent with meningioma. Follow-up nonemergent MRI may be helpful for further evaluation. Chronic microvascular ischemic disease. Electronically Signed: Yoli Hobson MD at 4:06 EDT ,
--- NOTE | 2021-11-13 03:18 | RAD_ITS ---
STUDY: X-RAY - PELVIS AND RIGHT HIP REASON FOR EXAM: Female, 81 years old. pain TECHNIQUE: 4 views of the pelvis and hip. COMPARISON: None. FINDINGS: There is foreshortening of the right femoral neck with relative cephalad migration suspicious for femoral neck fracture. The fracture line is not clearly visualized. The lateral views are limited by patient body habitus. Femoral heads are normal in contour. No dislocation of the hips. Degenerative changes of the lower lumbar spine. RAD/HIP, UNI W/ Pelvis 2-3 Views IMPRESSION: Suspect acute right femoral neck fracture. CT may be helpful. Electronically Signed: Yoli Hobson MD at 4:50 EDT ,
[2021-11-13] MEDS: Ondansetron 4 MG/2 ML Vial IV ×3 (03:27→17:18)
[2021-11-13] MEDS: Morphine 4 MG/ML Syringe IV (03:27)
[2021-11-13 03:29] LABS: Absolute Lymphocyte Count 1.84 X10^3/uL (0.83-4.51); Absolute Neutrophil Count 13.1 X10^3/uL (2.0-7.7); Basophil# 0.05 X10^3/uL; Basophil% 0.3 % (0-1); Eosinophil# 0.05 X10^3/uL; Eosinophils% 0.3 % (0-5); Hematocrit 37.7 % (37-47); Hemoglobin 12.9 g/dL (12.0-15.0); Lymphocyte # 1.84 X10^3/ul (0.83-4.51); Lymphocyte % 11.5 % (19-41); Mean Corp Hgb Conc 34.2 g/dL (32-36); Mean Corpuscular Hgb 31.6 pg (27.0-32.0); Mean Corpuscular Volume 92.4 fL (81-99); Mean Platelet Vol. 8.8 fl (6.2-12.0); Monocyte# 0.84 X10^3/uL; Monocyte% 5.2 % (0-10); NRBC Flagged by Analyzer 0 % (0-5); Neutrophil # 13.14 X10^3/uL (2.7-7.7); Platelet Count 296 K/mm3 (150-450); RBC Distribution Width CV 12.7 % (11.6-14.6); RBC Distribution Width SD 43.3 fl (35.1-43.9); Red Blood Count 4.08 M/mm3 (4.2-5.4)
--- NOTE | 2021-11-13 03:57 | EDS_ITS ---
HPI History of Present Illness Chief Complaint: Fall Narrative Narrative: This is an 81-year-old female presenting after a a fall which happened this evening. She states she was up going to the restroom and fell backwards hitting her hip on the ground. She is unsure if she hit her head. She did not lose consciousness reportedly. She complains of right hip pain and states he is unable to move it. Patient is anticoagulated on Eliquis. She denies any neck pain. She denies chest pain or shortness of breath. She states she was otherwise well prior to the fall. [facility] Medical History Atherosclerotic heart disease of [place] coronary artery without angina pectoris Chest discomfort Dyspnea (~01/30/21) Essential (primary) hypertension Fatigue Hernia HLD (hyperlipidemia) Mitral insufficiency, acute New onset atrial fibrillation Non-rheumatic tricuspid valve insufficiency Nonrheumatic aortic (valve) insufficiency Nonrheumatic mitral (valve) insufficiency Peripheral neuropathy Pure hypercholesterolemia Valvular heart disease Home Medications ascorbic acid (vitamin C) 500 mg tablet 500 mg PO QDAY 09/14/17 [History Last Taken Unknown] multivitamin 1 tab PO DAILY 06/29/18 [History Last Taken Unknown] potassium gluconate 500 mg (83 mg) tablet 500 mg PO DAILY 10/29/20 [History Last Taken Unknown] inhalational spacing device #1 ea 11/07/20 [Rx Last Taken Unknown] atorvastatin 20 mg tablet 20 mg PO QDAY #90 tabs 04/07/21 [Rx Last Taken Unknown] amlodipine 5 mg tablet 5 mg PO QDAY #90 tabs 06/05/21 [Rx Last Taken Unknown] losartan 25 mg tablet 25 mg PO QDAY #90 tabs 07/07/21 [Rx Last Taken Unknown] levothyroxine 137 mcg tablet 137 mcg PO QDAY #90 tabs 07/09/21 [Rx Last Taken Unknown] omeprazole 40 mg capsule,delayed release 40 mg PO DAILY #90 caps 07/09/21 [Rx Last Taken Unknown] albuterol sulfate 90 mcg/actuation aerosol inhaler (Ventolin HFA) 2 puff inhalation Q6H PRN shortness of breath or wheezing #25.5 grams 07/23/21 [Rx Last Taken Unknown] duloxetine 30 mg capsule,delayed release 30 mg PO BID #180 caps 09/17/21 [Rx Last Taken Unknown] apixaban 2.5 mg tablet 2.5 mg PO BID #180 tabs 11/06/21 [Rx Last Taken Unknown] mecobalamin (vitamin B12) 1,000 mcg disintegrating tablet,sublingual 1,000 mcg sublingual Q OTHER DAY 11/06/21 [History Last Taken Unknown] metoprolol tartrate 50 mg tablet 50 mg PO QHS 11/06/21 [History Last Taken Unknown] capsaicin 0.025 % topical cream 1 applic topical TID PRN foot pain #60 grams 11/11/21 [Rx Last Taken Unknown] Allergy/AdvReac Type Severity Reaction Status Date / Time No Known Allergies Allergy Verified 11/06/21 14:09 Family History Mother CVA (cerebral vascular accident) Brother CAD (coronary artery disease) Sister CAD (coronary artery disease) Myocardial infarction Son CAD (coronary artery disease) Surgical History History of appendectomy History of bladder suspension procedure History of hernia repair History of hysterectomy History of repair of hiatal hernia History of thyroidectomy History of tubal ligation S/P right rotator cuff repair Social History household members: significant other Smoking Status: Never smoker alcohol intake: never substance use type: does not use caffeine: No what type of physical activity do you participate in: other details: Zettics ROS ED Constitutional Constitutional ED: Denies chills or fever(s) Eyes Eyes: Denies change in vision or diplopia ENT ENT ED: Denies rhinorrhea or sore throat Cardiovascular Cardiovascular: Denies chest pain or palpitations Respiratory/Chest Respiratory/Chest: Denies cough or dyspnea Gastrointestinal Gastrointestinal: Denies abdominal pain or constipation Genitourinary Genitourinary ED: Denies dysuria or hematuria Musculoskeletal Musculoskeletal: Denies arthralgias EXAM Physical Exam Const Vital Signs: 11/13/21 02:33 11/13/21 02:38 11/13/21 05:00 Temperature 98.3 F Temperature Source Temporal Pulse Rate 87 Respiratory Rate 22 H Respiratory Effort Normal Non-Labored Blood Pressure 167/92 H 148/88 H Blood Pressure Mean 117 108 Pulse Ox 94 90 Oxygen Delivery Method Room Air Room Air Nasal Cannula Positive well nourished General Appearance ED: NAD HEENT Reports moist mucous membranes normocephalic and atraumatic Eyes PERRL Neck Thyroid: Negative for tender Resp normal respiratory effort Auscultation: Negative for rales, rhonchi or wheezes Cardio regular rate and regular rhythm GI non-tender Back/Spine Back/Spine Narrative: No lumbar spinal tenderness. Extremity Extremity Narrative: Tenderness to palpation of the right hip at the greater trochanter level. No obvious deformity. Patient unable to move hip secondary to pain. Leg is not shortened but is externally rotated. Neuro oriented x3 and CN's II-XII intact bilaterally Sensorium / Orientation: alert Psych mental status grossly normal Skin no wounds MDM MDM MDM Narrative Medical decision making narrative: 81-year-old female presenting with right hip pain after a fall. She states she was going to the bathroom and does not really know how she fell. She is not having any chest pain. She appears to be alert and awake. No signs of head trauma, but she cannot tell me if she hit her head and or not. Obtained lab work and she has a slight leukocytosis of 16. Hemoglobin hematocrit stable. Slight left shift. Renal function is normal. Sodium slightly low at 131 however her other electrolytes are unremarkable. LFTs are normal. High- sensitivity troponin is 7. EKG on my interpretation shows an irregular rhythm at 89 bpm with right bundle branch block. There are depressions and inversions in leads V2 through V6 as well as leads II, 3. AVF also shows T wave inversion. The laterally depressions are new compared with EKG from 26 October 2020. Patient is not reporting any chest pain. Urinalysis does not appear to be consistent with infection. Chest x-ray on my interpretation shows no acute cardiopulmonary process. Right hip x-ray on my interpretation shows a femoral neck fracture. Radiology agrees with both. CT brain shows no cranial findings. It does show meningioma. Patient medicated with morphine and Zofran and feels comfortable at this point. spoke with Dr. Tay and then admitted to patient to medicine. Impression: 1. Fall 2. Closed head injury 3. Right hip fracture 4. Leukocytosis 5. Abnormal EKG Lab Data Attestation: I reviewed the patient's lab results. Labs: Laboratory Results - last 24 hr 11/13/21 11/13/21 11/13/21 03:25 03:25 04:00 WBC 16.0 H RBC 4.08 L Hgb 12.9 Hct 37.7 MCV 92.4 MCH 31.6 MCHC 34.2 RDW Std Deviation 43.3 RDW Coeff of [place] 12.7 Plt Count 296 MPV 8.8 Immature Gran % (Auto) 0.700 Neut % (Auto) 82.0 H Lymph % (Auto) 11.5 L [place] % (Auto) 5.2 Eos % (Auto) 0.3 Baso % (Auto) 0.3 Absolute Neuts (auto) 13.1 H Absolute Lymphs (auto) 1.84 Nucleated RBC % 0 Sodium 131 L Potassium 3.9 Chloride 97 L Carbon Dioxide 28.0 Anion Gap 6 BUN 11 Creatinine 0.61 Estim Creat Clear Calc 36.50 Est GFR (MDRD) Af Amer 121 Est GFR (MDRD) Non-Af 100 BUN/Creatinine Ratio 18.0 Glucose 147 H Calcium 8.6 Total Bilirubin 0.40 AST 32 ALT 31 Alkaline Phosphatase 103 Troponin I High Sens 7 Total Protein 7.4 Albumin 3.6 Globulin 3.8 Albumin/Globulin Ratio 0.9 Urine Color Yellow Urine Clarity Clear Urine pH 8.0 Ur Specific [place] 1.010 Urine Protein 30 H Urine Glucose (UA) Normal Urine Ketones Negative Urine Occult Blood Negative Urine Nitrite Negative Urine Bilirubin Negative Urine Urobilinogen Normal Ur Leukocyte Esterase Negative Urine RBC 0 SEEN Urine WBC 0 SEEN Ur Squamous Epith Cells 0-5 SEEN Urine Bacteria RARE Urine Mucus 0 SEEN Radiography Diagnostic Testing: Clinical Impression(s) from Imaging Studies Brain CT 11/13/21 03:17 IMPRESSION: No evidence of acute intracranial injury. Posterior fossa extra-axial mass consistent with meningioma. Follow-up nonemergent MRI may be helpful for further evaluation. Chronic microvascular ischemic disease. Electronically Signed: Yoli Hobson MD at 4:06 EDT Reading Location ID and State: [facility] / [place] Tel , Service support , Chest X-Ray 11/13/21 03:17 IMPRESSION: No evidence of acute intrathoracic disease. Stable cardiomegaly. Electronically Signed: Yoil Hobson MD at 4:26 EDT Reading Location ID and State: [facility] / [place] Tel , Service support , Hip/Pelvis X-Ray 11/13/21 03:18 IMPRESSION: Suspect acute right femoral neck fracture. CT may be helpful. Electronically Signed: Yoli Hobson MD at 4:50 EDT , Discharge Plan Triage Chief Complaint: Fall ED Provider: [place] Dx/Rx/DC Orders Prescriptions: No Action ascorbic acid (vitamin C) 500 mg tablet 500 mg PO QDAY mecobalamin (vitamin B12) 1,000 mcg tablet,disintegrating 1,000 mcg sublingual Q OTHER DAY Rx Instructions: place tablet under tongue and allow to dissolve for at least30 secs before swallowing potassium gluconate 500 mg (83 mg) tablet 500 mg PO DAILY albuterol sulfate [Ventolin HFA] 90 mcg/actuation HFA aerosol inhaler 2 puff INHALATION Q6H PRN (Reason: shortness of breath or wheezing) Qty: 25.5 1RF Rx Instructions: administer with spacer metoprolol tartrate 50 mg tablet 50 mg PO QHS Rx Instructions: at bedtime apixaban 2.5 mg tablet 2.5 mg PO BID Qty: 180 3RF capsaicin 0.025 % cream 1 applic topical TID PRN (Reason: foot pain) Qty: 60 2RF Rx Instructions: do not wash area for at least 30 min after application multivitamin 1 EACH tablet 1 tab PO DAILY (DME) inhalational spacing device Spacer See Rx Instructions .ROUTE .MEDSUPPLY Qty: 1 0RF Rx Instructions: As directed atorvastatin 20 mg tablet 20 mg PO QDAY Qty: 90 3RF amlodipine 5 mg tablet 5 mg PO QDAY Qty: 90 3RF losartan 25 mg tablet 25 mg PO QDAY Qty: 90 3RF omeprazole 40 mg capsule,delayed release(DR/EC) 40 mg PO DAILY Qty: 90 1RF levothyroxine 137 mcg tablet 137 mcg PO QDAY Qty: 90 1RF duloxetine 30 mg capsule,delayed release(DR/EC) 30 mg PO BID Qty: 180 6RF Primary Care Provider: Jamir Guardado Referrals: Jamir Guardado, [Primary Care Provider] -
[2021-11-13 04:08] LABS: Mucous, Urine 0 SEEN /hpf (<or=2+); Red Blood Cells-Urine 0 SEEN /hpf (0-5); White Blood Cells 0 SEEN /hpf (0-5)
[2021-11-13 04:10] LABS: ALB/GLOB Ratio 0.9 RATIO (0.9-2.4); AST(SGOT) 32 U/L (15-37); Alanine Aminotransfer ALT/SGPT 31 U/L (13-56); Albumin, Serum 3.6 g/dL (3.2-5.0); Alkaline Phosphatase 103 U/L (45-117); Anion Gap 6 (5-15); BUN 11 mg/dL (7-18); Calcium,Total 8.6 mg/dL (8.5-10.1); Chloride 97 mmol/L (98-107); Creatinine, Serum 0.61 mg/dL (0.55-1.02); EST Glomerular Filtration Rate 100 mL/min (>60); Est Glom Filt Rate - Afr Amer 121 mL/min (>60); Globulin 3.8 g/dL (2.2-4.2); Glucose 147 mg/dL (74-106); Potassium 3.9 mmol/L (3.5-5.1); Protein, Total 7.4 g/dL (6.4-8.2); Sodium Level 131 mmol/L (136-145); Troponin-I HS 7 pg/mL (3.0-54.0)
[2021-11-13 04:29] LABS: Color, Urine Yellow (Yellow); Glucose, Dipstick Normal (Normal); Ketone-Dipstick Negative (Negative); Leukocyte Esterase-Dipstick Negative /ul (Negative); Nitrite-Dipstick Negative (Negative); Occult Blood-Urine Negative /ul (Negative); Protein-Dipstick 30 mg/dl (Negative); Urine Bilirubin Dipstick Negative (Negative); Urine Clarity Clear (Clear); Urine Urobilinogen Normal (Normal)
[2021-11-13 04:35] LABS: Bacteria RARE /hpf (None Seen); Squamous Epithelial Cells - UA 0-5 SEEN /hpf (5-10)
--- NOTE | 2021-11-13 05:23 | PCM.HP.STD ---
[facility] - General General Date of Service: 11/13/21 Chief Complaint: Fall, right hip pain. HPI Narrative The patient is an 81 y/o F w/ PMHx: PAF, Valvular heart disease, CAD, HTN, HLD, Obesity, Hypothyroidism, GERD who presents to the [facility] ED on 11/13/21 with history of mechanical fall the evening prior to presentation while she was attempting to get up and go to the restroom unfortunately falling backwards, losing her balance and hearing her right hip on the ground with no loss of consciousness but onset of right hip discomfort therefore prompted ED evaluation especially given her anticoagulation status. Following the event pain in the right hip was sharp and rated 7-10 out of 10 in severity, currently improved and down to 5 out of 10 in severity. Work-up in the ED included T 98.3, heart rate 87, BP 167/92, respiratory rate 22, 94% on room air, CBC with WC 16, hemoglobin 12.9, platelet 296 with left shift, CMP unremarkable aside glucose 147, sodium 131, chloride 97, urinalysis with no obvious evidence of UTI, CT of the brain with no evidence of acute intracranial injury, posterior fossa extra-axial mass consistent with meningioma, chronic microvascular ischemic disease, chest clear with no acute cardiopulmonary findings with stable cardiomegaly, plain film of the hip and right pelvis with a suspected acute right femoral neck fracture. EKG pending upon evaluation. [facility] Medical History Atherosclerotic heart disease of [place] coronary artery without angina pectoris Chest discomfort Dyspnea (~01/30/21) Essential (primary) hypertension Fatigue Hernia HLD (hyperlipidemia) Mitral insufficiency, acute New onset atrial fibrillation Non-rheumatic tricuspid valve insufficiency Nonrheumatic aortic (valve) insufficiency Nonrheumatic mitral (valve) insufficiency Peripheral neuropathy Pure hypercholesterolemia Valvular heart disease Home Medications ascorbic acid (vitamin C) 500 mg tablet 500 mg PO QDAY 09/14/17 [History Last Taken Unknown] multivitamin 1 tab PO DAILY 06/29/18 [History Last Taken Unknown] potassium gluconate 500 mg (83 mg) tablet 500 mg PO DAILY 10/29/20 [History Last Taken Unknown] inhalational spacing device #1 ea 11/07/20 [Rx Last Taken Unknown] atorvastatin 20 mg tablet 20 mg PO QDAY #90 tabs 04/07/21 [Rx Last Taken Unknown] amlodipine 5 mg tablet 5 mg PO QDAY #90 tabs 06/05/21 [Rx Last Taken Unknown] losartan 25 mg tablet 25 mg PO QDAY #90 tabs 07/07/21 [Rx Last Taken Unknown] levothyroxine 137 mcg tablet 137 mcg PO QDAY #90 tabs 07/09/21 [Rx Last Taken Unknown] omeprazole 40 mg capsule,delayed release 40 mg PO DAILY #90 caps 07/09/21 [Rx Last Taken Unknown] albuterol sulfate 90 mcg/actuation aerosol inhaler (Ventolin HFA) 2 puff inhalation Q6H PRN shortness of breath or wheezing #25.5 grams 07/23/21 [Rx Last Taken Unknown] duloxetine 30 mg capsule,delayed release 30 mg PO BID #180 caps 09/17/21 [Rx Last Taken Unknown] apixaban 2.5 mg tablet 2.5 mg PO BID #180 tabs 11/06/21 [Rx Last Taken Unknown] mecobalamin (vitamin B12) 1,000 mcg disintegrating tablet,sublingual 1,000 mcg sublingual Q OTHER DAY 11/06/21 [History Last Taken Unknown] metoprolol tartrate 50 mg tablet 50 mg PO QHS 11/06/21 [History Last Taken Unknown] capsaicin 0.025 % topical cream 1 applic topical TID PRN foot pain #60 grams 11/11/21 [Rx Last Taken Unknown] Allergy/AdvReac Type Severity Reaction Status Date / Time No Known Allergies Allergy Verified 11/06/21 14:09 Family History Mother CVA (cerebral vascular accident) Brother CAD (coronary artery disease) Sister CAD (coronary artery disease) Myocardial infarction Son CAD (coronary artery disease) Surgical History History of appendectomy History of bladder suspension procedure History of hernia repair History of hysterectomy History of repair of hiatal hernia History of thyroidectomy History of tubal ligation S/P right rotator cuff repair Social History household members: significant other Smoking Status: Never smoker alcohol intake: never substance use type: does not use caffeine: No what type of physical activity do you participate in: other details: FIGS ROS ROS Narrative Physical Examination: General: Awake, alert, oriented x 3 and cooperative, laying in the ED bed, fatigued appearing. Skin: Normal color, normal turgor, no icterus, no cyanosis except occasional staged ecchymoses. HEENT: AT/NC, EOMI, PERRLA, moderately dry MM, no carotid bruits or JVD noted. Lungs: CTA bilaterally, moderate effort, mild decrease BL bases, no rales, ronchi or wheezing. Heart: Irregular, rate controlled; no gallop, rub audible. Abdomen: Soft, obese, NTTP, ND, normal BS, no HSM. Extremities: No cyanosis, no clubbing, mild BL ankle nonpitting edema, RLE externally rotated, fall with hip fracture. Neurological: Patient awake, alert, oriented as noted, cognitive function intact; pupils equally reactive to light and accommodation, cranial nerves II-XII grossly normal, moving all 4 extremities except expected limitation RLE give fall with R hip fracture, no focal deficits, strength accordingly severely globally decreased. Psychiatric: Affect appears fatigued otherwise normal, no acute evidence of depressive or anxiety feelings. Vital Signs Vital Signs Vital Signs: 11/13/21 02:33 11/13/21 02:38 11/13/21 05:00 Temperature 98.3 F Temperature Source Temporal Pulse Rate 87 Respiratory Rate 22 H Respiratory Effort Normal Non-Labored Blood Pressure 167/92 H 148/88 H Blood Pressure Mean 117 108 Pulse Ox 94 90 Oxygen Delivery Method Room Air Room Air Nasal Cannula Weight Weight: 177 lb 11.081 oz Body Mass Index (BMI) 31.4 Results Lab / Micro Data Result Diagrams: 11/13/21 03:25 11/13/21 03:25 Labs: Laboratory Results - last 24 hr 11/13/21 03:25: WBC 16.0 H, RBC 4.08 L, Hgb 12.9, Hct 37.7, MCV 92.4, MCH 31.6, MCHC 34.2, RDW Std Deviation 43.3, RDW Coeff of [place] 12.7, Plt Count 296, MPV 8.8, Immature Gran % (Auto) 0.700, Neut % (Auto) 82.0 H, Lymph % (Auto) 11.5 L, [place] % (Auto) 5.2, Eos % (Auto) 0.3, Baso % (Auto) 0.3, Absolute Neuts (auto) 13.1 H, Absolute Lymphs (auto) 1.84, Nucleated RBC % 0 11/13/21 03:25: Sodium 131 L, Potassium 3.9, Chloride 97 L, Carbon Dioxide 28.0, Anion Gap 6, BUN 11, Creatinine 0.61, Estim Creat Clear Calc 36.50, Est GFR (MDRD) Af Amer 121, Est GFR (MDRD) Non-Af 100, BUN/Creatinine Ratio 18.0, Glucose 147 H, Calcium 8.6, Total Bilirubin 0.40, AST 32, ALT 31, Alkaline Phosphatase 103, Troponin I High Sens 7, Total Protein 7.4, Albumin 3.6, Globulin 3.8, Albumin/Globulin Ratio 0.9 11/13/21 04:00: Urine Color Yellow, Urine Clarity Clear, Urine pH 8.0, Ur Specific [place] 1.010, Urine Protein 30 H, Urine Glucose (UA) Normal, Urine Ketones Negative, Urine Occult Blood Negative, Urine Nitrite Negative, Urine Bilirubin Negative, Urine Urobilinogen Normal, Ur Leukocyte Esterase Negative, Urine RBC 0 SEEN, Urine WBC 0 SEEN, Ur Squamous Epith Cells 0-5 SEEN, Urine Bacteria RARE, Urine Mucus 0 SEEN Radiology Impression Brain CT 11/13/21 03:17 IMPRESSION: No evidence of acute intracranial injury. Posterior fossa extra-axial mass consistent with meningioma. Follow-up nonemergent MRI may be helpful for further evaluation. Chronic microvascular ischemic disease. Electronically Signed: Yoli Hobson MD at 4:06 EDT Reading Location ID and State: [address] [place] [address] Tel , Service support , Chest X-Ray 11/13/21 03:17 IMPRESSION: No evidence of acute intrathoracic disease. Stable cardiomegaly. Electronically Signed: Yoli Hobson MD at 4:26 EDT , Hip/Pelvis X-Ray 11/13/21 03:18 IMPRESSION: Suspect acute right femoral neck fracture. CT may be helpful. Electronically Signed: Yoli Hobson MD at 4:50 EDT , Assessment & Plan Assessment/Plan (1) Closed right hip fracture: PLAN: Plan The patient is an 81 y/o F w/ PMHx: PAF, Valvular heart disease, CAD, HTN, HLD, Obesity, Hypothyroidism, GERD who presents to the [facility] ED on 11/13/21 with history of mechanical fall the evening prior to presentation while she was attempting to get up and go to the restroom unfortunately falling backwards, losing her balance and hearing her right hip on the ground with no loss of consciousness but onset of right hip discomfort therefore prompted ED evaluation especially given her anticoagulation status. #1. General debility, right hip pain s/p mechanical fall w/ suspected acute right femoral neck fracture: Plain film noting suspected acute right femoral neck. Orthopedic surgery consulted from ED. Will admit to [facility], given recent anticoagulant oral therapy will continue oral intake pending orthopedic surgery assessment, continue gentle IVFs, UA, UCx, mendoza placement, monitor I/Os, frequent positioning, fall precautions, PRN pain and anti-emetic regimen. PT/OT following operative intervention. CM consulted for discharge planning. Last eliquis dosing 11/12/21 evening. Per NSQIP given age and activity level as well as underlying comorbidities patient considered expected average risk perioperatively given patient recent 11/06/2021 cardiac evaluation agree with progression to operative intervention pending an EKG. #2. Hyperglycemia: Admission glucose 147, possibly stress response, hemoglobin A1c requested. #3. Incidental meningioma: CT head with posterior fossa extra-axial mass consistent with meningioma, will order MRI to be cautious, chronic microvascular ischemic disease also noted on imaging. #4. Hypertension: Continue home regimen including amlodipine, losartan, metoprolol with hold parameters as needed, PRN hydralazine. #5. Hyperlipidemia: We will continue patient on statin therapy. #6. Hypothyroidism: Continue home synthroid regimen. #7. Valvular heart disease: 10/08/2020 echo with normal LV systolic function, EF 60%, mildly dilated RV, moderately enlarged LA, severely enlarged RA, mild MVI, moderately severe TVI, mild AV insufficiency, RVSP 37 mm Hg, inability to assess diastolic dysfunction. #8. Anxiety and depression: We will continue patient home duloxetine regimen. #9. Obesity: Weight loss and lifestyle changes encouraged. #10. GERD: We will continue patient home PPI. #11. PAF: We will continue patient home metoprolol, hold apixaban given acute presentation #1. #12. DVT prophylaxis: SCDs, holding patient home apixaban regimen given acute presentation #1. #13. CODE status: Patient HCPOA and LW not in place but patient and her daughter noted interest in setting up. Recommended review process/obtain information with SW/CM. Discussed CODE status at length including difference between FULL code, DNR-CCA and DNR-CC status. Following discussions about the differences in these status, requested Full Code status. Advanced Care Planning Face to Face Time: 16 minutes. Charges/Coding Visit Charges Inpatient E&M: 51630 Init Hosp L3 Procedures Hospitalists Procedures: 30600 Advncd Care Plan 30 Min
--- NOTE | 2021-11-13 05:44 | EKG12_ITS ---
Test Reason : FALL Blood Pressure : / mmHG Vent. Rate : 089 BPM Atrial Rate : 086 BPM P-R Int : 000 ms QRS Dur : 136 ms QT Int : 412 ms P-R-T Axes : 000 -19 -72 degrees QTc Int : 501 ms Atrial fibrillation Right bundle branch block T wave abnormality, consider inferolateral ischemia Abnormal ECG Confirmed by DAISY HOPE, MARY ([id number]), videotape editor SILVIO VIERA ([id number]) on 11/14/2021 10:34:01 A M Referred By: HERMELINDA Confirmed By:HAYLEY VILLA MD
--- NOTE | 2021-11-13 06:36 | ED.RN ---
PT AND FAMILY UNABLE TO PROVIDE MEDICATION LIST AT THIS TIME. DTR CAN OBTAIN FROM HOME LATER TODAY.
--- NOTE | 2021-11-13 06:37 | NURSING ---
med surg white rt hip fracture
--- NOTE | 2021-11-13 07:59 | MRI_ITS ---
EXAM: MR HEAD WITHOUT AND WITH INTRAVENOUS CONTRAST CLINICAL INDICATION: abnormal CT, possibly meningioma TECHNIQUE: Multiplanar and multisequence MR images of the brain were obtained without and with intravenous contrast. Magnetic field strength 1.5 T. This report was created using [employer] report [employer] technology. CONTRAST: 15 cc of Doatarem IV. COMPARISON: Noncontrast head CT 11/13/2021. FINDINGS: BRAIN AND EXTRA-AXIAL SPACES: Extra-axial relatively homogeneously enhancing mass involving the undersurface of the left tentorium. It measures 2.2 x 2.3 x 2.2 cm. No intra- or extra-axial hemorrhage. No evidence of acute infarct. There is preservation of the julian/white matter interface. Posterior fossa structures are unremarkable. Ventricles are appropriate for age. No hydrocephalus. Basal cisterns are patent. SELLA: Unremarkable. Normal sella turcica, pituitary gland, infundibular stalk, optic chiasm and hypothalamus. AUDITORY SYSTEM: Unremarkable. The internal auditory canals are patent. BONES/JOINTS: Unremarkable. No discrete lytic or blastic abnormalities. SINUSES: Unremarkable as visualized. Clear. MASTOID AIR CELLS: Unremarkable as visualized. Clear. ORBITS: Unremarkable as visualized. Both globes, extraocular muscles, optic nerves and retrobulbar fat appear unremarkable. VASCULATURE: Unremarkable as visualized. Normal flow voids in the major intracranial circulation. MRI/Brain W/WO Contrast IMPRESSION: Meningioma measuring 2.2 cm inferior aspect of the left tentorium. Electronically Signed: Chad Hartmann MD at 19:10 EDT ,
[2021-11-13 09:12] LABS: ALB/GLOB Ratio 1.1 RATIO (0.9-2.4); AST(SGOT) 26 U/L (15-37); Alanine Aminotransfer ALT/SGPT 29 U/L (13-56); Albumin, Serum 3.7 g/dL (3.2-5.0); Alkaline Phosphatase 104 U/L (45-117); Anion Gap 7 (5-15); BUN 10 mg/dL (7-18); Calcium,Total 8.7 mg/dL (8.5-10.1); Chloride 97 mmol/L (98-107); Creatinine, Serum 0.62 mg/dL (0.55-1.02); EST Glomerular Filtration Rate 97 mL/min (>60); Est Glom Filt Rate - Afr Amer 118 mL/min (>60); Globulin 3.5 g/dL (2.2-4.2); Glucose 159 mg/dL (74-106); Potassium 3.2 mmol/L (3.5-5.1); Protein, Total 7.2 g/dL (6.4-8.2); Sodium Level 131 mmol/L (136-145)
[2021-11-13] MEDS: 0.9% Normal Saline 1,000 ML 100 ML IV (09:42)
--- NOTE | 2021-11-13 10:00 | CT_ITS ---
STUDY: CT SCAN HIP RIGHT REASON FOR EXAM: Female, 81 years old. Right hip frx RADIATION DOSAGE (If Supplied By Facility): CTDIvol = ( 23.08 ) mGy, DLP = ( 743.33 ) mGycm. Individualized dose optimization techniques were used for this CT.? TECHNIQUE: Multiple axial tomographic images of the right hip joint were obtained. Coronal and sagittal reconstruction was obtained as well. COMPARISON: Comparison is made with prior radiograph done earlier in the day. FINDINGS: There is evidence of an impacted transverse fracture of the basi cervical region of the proximal right femur. Degenerative changes of the symphysis pubis. A ROJAS catheter is seen within the urinary bladder. There is evidence of prior lower abdominal wall hernia repair with mesh. CT/Extremity Lower without Contra IMPRESSION: Nondisplaced impacted basicervical fracture of the proximal right femur. Electronically Signed: Berlin Parks MD at 10:41 EDT ,
[2021-11-13] MEDS: Losartan Potassium 25 MG Tablet PO (10:59)
[2021-11-13] MEDS: amLODIPine 5 MG Tablet PO (11:01)
--- NOTE | 2021-11-13 11:30 | PCM.CONS.C ---
Assessment & Plan Assessment/Plan (1) Pre-operative cardiovascular examination: PLAN: Patient is stable from a cardiac standpoint. No further cardiac work-up is required at this time. She would be considered low risk for perioperative cardiac complications from hip surgery. (2) Unspecified atrial fibrillation: PLAN: Patient is currently in atrial fibrillation. Rate is controlled. Continue current management. Okay to hold anticoagulation for surgery if required. HPI Consult Data Date of Consult: 11/13/21 HPI Narrative Reason for Consultation: Preoperative evaluation HPI Narrative: JULIENNE FINNEY, is a 81 F who presents after mechanical fall and was found to have right hip fracture. Cardiology consult was requested for preoperative cardiovascular evaluation. Patient has history of atrial fibrillation, mild coronary artery disease. She denies any cardiac symptoms prior to her mechanical fall. She was seen in the office about 3 days back. She was doing well at that time. She had a stress test in 2017 that was negative for ischemia. EF was preserved at that time. Per recent office visit, 2D echo done in October 2020 showed mild mitral valve sufficiency, moderately severe tricuspid valve insufficiency, mild aortic valve insufficiency, and an RVSP of 37 mmHg.? She was also noted to have mildly dilated right ventricle, moderately enlarged left atrium, and severely enlarged right atrium.? Her LV function was noted at 60%. Review of systems: Patient appears to be medicated for her right hip pain and is drowsy. She is unable to participate in review of systems [facility] Medical History Atherosclerotic heart disease of [place] coronary artery without angina pectoris Chest discomfort Dyspnea (~01/30/21) Essential (primary) hypertension Fatigue Hernia HLD (hyperlipidemia) Mitral insufficiency, acute New onset atrial fibrillation Non-rheumatic tricuspid valve insufficiency Nonrheumatic aortic (valve) insufficiency Nonrheumatic mitral (valve) insufficiency Peripheral neuropathy Pure hypercholesterolemia Valvular heart disease Home Medications ascorbic acid (vitamin C) 500 mg tablet 500 mg PO QDAY 09/14/17 [History Last Taken Unknown] multivitamin 1 tab PO DAILY 06/29/18 [History Last Taken Unknown] potassium gluconate 500 mg (83 mg) tablet 500 mg PO DAILY 10/29/20 [History Last Taken Unknown] inhalational spacing device #1 ea 11/07/20 [Rx Last Taken Unknown] atorvastatin 20 mg tablet 20 mg PO QDAY #90 tabs 04/07/21 [Rx Last Taken Unknown] amlodipine 5 mg tablet 5 mg PO QDAY #90 tabs 06/05/21 [Rx Last Taken Unknown] losartan 25 mg tablet 25 mg PO QDAY #90 tabs 07/07/21 [Rx Last Taken Unknown] levothyroxine 137 mcg tablet 137 mcg PO QDAY #90 tabs 07/09/21 [Rx Last Taken Unknown] omeprazole 40 mg capsule,delayed release 40 mg PO DAILY #90 caps 07/09/21 [Rx Last Taken Unknown] albuterol sulfate 90 mcg/actuation aerosol inhaler (Ventolin HFA) 2 puff inhalation Q6H PRN shortness of breath or wheezing #25.5 grams 07/23/21 [Rx Last Taken Unknown] duloxetine 30 mg capsule,delayed release 30 mg PO BID #180 caps 09/17/21 [Rx Last Taken Unknown] apixaban 2.5 mg tablet 2.5 mg PO BID #180 tabs 11/06/21 [Rx Last Taken Unknown] mecobalamin (vitamin B12) 1,000 mcg disintegrating tablet,sublingual 1,000 mcg sublingual Q OTHER DAY 11/06/21 [History Last Taken Unknown] metoprolol tartrate 50 mg tablet 50 mg PO QHS 11/06/21 [History Last Taken Unknown] capsaicin 0.025 % topical cream 1 applic topical TID PRN foot pain #60 grams 11/11/21 [Rx Last Taken Unknown] Allergy/AdvReac Type Severity Reaction Status Date / Time No Known Allergies Allergy Verified 11/06/21 14:09 Family History Mother CVA (cerebral vascular accident) Brother CAD (coronary artery disease) Sister CAD (coronary artery disease) Myocardial infarction Son CAD (coronary artery disease) Surgical History History of appendectomy History of bladder suspension procedure History of hernia repair History of hysterectomy History of repair of hiatal hernia History of thyroidectomy History of tubal ligation S/P right rotator cuff repair Social History household members: significant other Smoking Status: Never smoker alcohol intake: never substance use type: does not use caffeine: No what type of physical activity do you participate in: other details: [facility] Physical Exam HEENT normocephalic Eyes no scleral icterus Resp clear to auscultation bilaterally Cardio S1 normal heart sound and S2 normal heart sound Extremity no pedal edema Psych mental status grossly normal Risk Stratification Risk Stratification Applicable: No Charges/Coding Visit Charges Inpatient E&M: 70042 Init Hosp L2 Objective Data Vital Signs: Vital Signs Temp Pulse Resp BP Pulse Ox O2 Del Method O2 Flow Rate 97.2 F L 90 16 162/93 H 97 Room Air 2 11/13/21 08:05 11/13/21 08:05 11/13/21 08:05 11/13/21 08:05 11/13/21 08:05 11/13/21 08:05 11/13/21 08:04 Oxygen Flow Rate (L/min) 2 Oxygen Delivery Method Room Air Weight: 177 lb 11.081 oz Body Mass Index (BMI) 29.5 Intake & Output: Intake and Output for Last 24 Hours 11/11/21 11/12/21 11/13/21 23:59 23:59 23:59 Output Total 2300 / 2300 Balance -2300 / -2300 Lab / Micro Data Result Diagrams: 11/13/21 03:25 11/13/21 08:35 Labs: Laboratory Results - last 24 hr 11/13/21 03:25: WBC 16.0 H, RBC 4.08 L, Hgb 12.9, Hct 37.7, MCV 92.4, MCH 31.6, MCHC 34.2, RDW Std Deviation 43.3, RDW Coeff of [place] 12.7, Plt Count 296, MPV 8.8, Immature Gran % (Auto) 0.700, Neut % (Auto) 82.0 H, Lymph % (Auto) 11.5 L, [place] % (Auto) 5.2, Eos % (Auto) 0.3, Baso % (Auto) 0.3, Absolute Neuts (auto) 13.1 H, Absolute Lymphs (auto) 1.84, Nucleated RBC % 0 11/13/21 03:25: Sodium 131 L, Potassium 3.9, Chloride 97 L, Carbon Dioxide 28.0, Anion Gap 6, BUN 11, Creatinine 0.61, Estim Creat Clear Calc 36.50, Est GFR (MDRD) Af Amer 121, Est GFR (MDRD) Non-Af 100, BUN/Creatinine Ratio 18.0, Glucose 147 H, Calcium 8.6, Total Bilirubin 0.40, AST 32, ALT 31, Alkaline Phosphatase 103, Troponin I High Sens 7, Total Protein 7.4, Albumin 3.6, Globulin 3.8, Albumin/Globulin Ratio 0.9 11/13/21 04:00: Urine Color Yellow, Urine Clarity Clear, Urine pH 8.0, Ur Specific [place] 1.010, Urine Protein 30 H, Urine Glucose (UA) Normal, Urine Ketones Negative, Urine Occult Blood Negative, Urine Nitrite Negative, Urine Bilirubin Negative, Urine Urobilinogen Normal, Ur Leukocyte Esterase Negative, Urine RBC 0 SEEN, Urine WBC 0 SEEN, Ur Squamous Epith Cells 0-5 SEEN, Urine Bacteria RARE, Urine Mucus 0 SEEN 11/13/21 08:35: Sodium 131 L, Potassium 3.2 L, Chloride 97 L, Carbon Dioxide 27.0, Anion Gap 7, BUN 10, Creatinine 0.62, Estim Creat Clear Calc 39.70, Est GFR (MDRD) Af Amer 118, Est GFR (MDRD) Non-Af 97, BUN/Creatinine Ratio 16.0, Glucose 159 H, Calcium 8.7, Total Bilirubin 0.70, AST 26, ALT 29, Alkaline Phosphatase 104, Total Protein 7.2, Albumin 3.7, Globulin 3.5, Albumin/Globulin Ratio 1.1 Cardiology Labs/Tests 11/13/21 03:25: WBC 16.0 H, RBC 4.08 L, Hgb 12.9, Hct 37.7, MCV 92.4, MCH 31.6, MCHC 34.2, Plt Count 296, MPV 8.8, Immature Gran % (Auto) 0.700, Neut % (Auto) 82.0 H, Lymph % (Auto) 11.5 L, [place] % (Auto) 5.2, Eos % (Auto) 0.3, Baso % (Auto) 0.3, Absolute Neuts (auto) 13.1 H, Nucleated RBC % 0 11/13/21 03:25: Sodium 131 L, Potassium 3.9, Chloride 97 L, Carbon Dioxide 28.0, Anion Gap 6, BUN 11, Creatinine 0.61, Est GFR (MDRD) Af Amer 121, Est GFR (MDRD) Non-Af 100, BUN/Creatinine Ratio 18.0, Glucose 147 H, Calcium 8.6, Total Bilirubin 0.40 11/13/21 04:00: Urine Color Yellow, Urine Clarity Clear, Urine pH 8.0, Ur Specific [place] 1.010, Urine Protein 30 H, Urine Glucose (UA) Normal, Urine Ketones Negative, Urine Occult Blood Negative, Urine Nitrite Negative, Urine Bilirubin Negative, Urine Urobilinogen Normal, Ur Leukocyte Esterase Negative, Urine RBC 0 SEEN, Urine WBC 0 SEEN 11/13/21 08:35: Sodium 131 L, Potassium 3.2 L, Chloride 97 L, Carbon Dioxide 27.0, Anion Gap 7, BUN 10, Creatinine 0.62, Est GFR (MDRD) Af Amer 118, Est GFR (MDRD) Non-Af 97, BUN/Creatinine Ratio 16.0, Glucose 159 H, Calcium 8.7, Total Bilirubin 0.70 Rhythm: EKG: ECHO: Stress Test: Cardiac Cath: PCI: CT Surgery: Holter monitor: EPS: PPM: CXR: Chest CT Scan: Radiography Diagnostic Testing: Radiology Impression Brain CT 11/13/21 03:17 IMPRESSION: No evidence of acute intracranial injury. Posterior fossa extra-axial mass consistent with meningioma. Follow-up nonemergent MRI may be helpful for further evaluation. Chronic microvascular ischemic disease. Electronically Signed: Yoli Hobson MD at 4:06 EDT Reading Location ID and State: [facility] / [place] Tel , Service support , Chest X-Ray 11/13/21 03:17 IMPRESSION: No evidence of acute intrathoracic disease. Stable cardiomegaly. Electronically Signed: Yoli Hobson MD at 4:26 EDT Reading Location ID and State: [facility] / [place] Tel , Service support , Hip/Pelvis X-Ray 11/13/21 03:18 IMPRESSION: Suspect acute right femoral neck fracture. CT may be helpful. Electronically Signed: Yoli Hobson MD at 4:50 EDT Reading Location ID and State: [facility] / [place] Tel , Service support , Lower Extremity CT 11/13/21 10:00 IMPRESSION: Nondisplaced impacted basicervical fracture of the proximal right femur. Electronically Signed: [place] Parks MD at 10:41 EDT ,
--- NOTE | 2021-11-13 12:05 | CASEMGMT ---
JENSEN ARZOLA SHEETER HELPER CM to room to meet with patient for initial transition planning/care coordination assessment. JENSEN ARZOLA introduced self and role at [facility].? Pt voices understanding and consents to assessment at this time.? Pt resting in bed in no distress at this time.? Pt is A/O at this time and answers all questions appropriately.?? Care providers, pharmacy, and demographics verified/updated at this time. PCP: Dr Jamir Guardado Specialists: Dr Guardado-pulmonology Insurance: [place] [facility] Prescription Benefit:?Yes Living Will/HPOA:? Pt does not currently have LW/HCPOA and is interested in talking w/SW to complete. She states she would want her daughter, Graciela, to be her HPOA. Donya ESCOBEDO, made aware. LNOK: Dtr, Graciela. Pt has 3 other living children. Sig other is Marino Pichardo. Living Arrangements: Pt lives w/Marino in 2-story home w/5 steps to enter. FFSU. Was independent w/ADL's prior to fall/injury. Marino usually does the laundry, but pt helps w/other home tasks when she is able. She states has been more weak lately, so Marino has been helping her. Transportation:?Pt and Marino both drive. DME: States has the following DME:?shower chair, BSC, rails/grab bars, Walker. HHC/SNF: No hx of either. Pt states, if SNF is needed, that she would be amenable to going. ?Pt was provided with list of? SNF providers including quality and resource use data and consistent with the patient's preferred geographic region, medical needs, and insurance network. ? Pt states she does not know what would be her preference and asked for someone to call her dtr, Graciela, to discuss this w/her. Donya ESCOBEDO, made aware. Pt states, if she is able to return home, then she would be interested in HHC. PLAN:??TBD by course of treatment and progress w/therapy. Umm BSN JENSEN ARZOLA
--- NOTE | 2021-11-13 14:24 | PN.HOSP_ITS ---
Subjective Subjective Patient is an 81-year-old white female who suffered a mechanical fall on the evening prior to presentation while she was attempting to get up and use the restroom. She fell backwards at that time and lost her balance falling on her right hip. She had acute onset right hip pain and was found to have a right femoral neck fracture. The case was discussed with Dr. Tay and the plan is for orthopedic surgery. Objective Data Objective Data Vital Signs: Vital Signs Temp Pulse Resp BP Pulse Ox O2 Del Method O2 Flow Rate 97.2 F L 90 16 162/93 H 97 Room Air 2 11/13/21 08:05 11/13/21 08:05 11/13/21 08:05 11/13/21 08:05 11/13/21 08:05 11/13/21 08:05 11/13/21 08:04 Oxygen Flow Rate (L/min) 2 Oxygen Delivery Method Room Air Weight: 80.6 kg Body Mass Index (BMI) 29.5 Intake & Output: Intake and Output for Last 24 Hours 11/11/21 11/12/21 11/13/21 23:59 23:59 23:59 Output Total 2300 / 2300 Balance -2300 / -2300 Lab / Micro Data Result Diagrams: 11/13/21 03:25 11/13/21 08:35 Labs: Laboratory Results - last 24 hr 11/13/21 03:25: WBC 16.0 H, RBC 4.08 L, Hgb 12.9, Hct 37.7, MCV 92.4, MCH 31.6, MCHC 34.2, RDW Std Deviation 43.3, RDW Coeff of Koko 12.7, Plt Count 296, MPV 8.8, Immature Gran % (Auto) 0.700, Neut % (Auto) 82.0 H, Lymph % (Auto) 11.5 L, Lawrence % (Auto) 5.2, Eos % (Auto) 0.3, Baso % (Auto) 0.3, Absolute Neuts (auto) 13.1 H, Absolute Lymphs (auto) 1.84, Nucleated RBC % 0 11/13/21 03:25: Sodium 131 L, Potassium 3.9, Chloride 97 L, Carbon Dioxide 28.0, Anion Gap 6, BUN 11, Creatinine 0.61, Estim Creat Clear Calc 36.50, Est GFR (MDRD) Af Amer 121, Est GFR (MDRD) Non-Af 100, BUN/Creatinine Ratio 18.0, Glucose 147 H, Calcium 8.6, Total Bilirubin 0.40, AST 32, ALT 31, Alkaline Phosphatase 103, Troponin I High Sens 7, Total Protein 7.4, Albumin 3.6, Globu asya 3.8, Albumin/Globulin Ratio 0.9 11/13/21 04:00: Urine Color Yellow, Urine Clarity Clear, Urine pH 8.0, Ur Specific [place]yard 1.010, Urine Protein 30 H, Urine Glucose (UA) Normal, Urine Ketones Negative, Urine Occult Blood Negative, Urine Nitrite Negative, Urine Bilirubin Negative, Urine Urobilinogen Normal, Ur Leukocyte Esterase Negative, Urine RBC 0 SEEN, Urine WBC 0 SEEN, Ur Squamous Epith Cells 0-5 SEEN, Urine Bacteria RARE, Urine Mucus 0 SEEN 11/13/21 08:35: Sodium 131 L, Potassium 3.2 L, Chloride 97 L, Carbon Dioxide 27.0, Anion Gap 7, BUN 10, Creatinine 0.62, Estim Creat Clear Calc 39.70, Est GFR (MDRD) Af Amer 118, Est GFR (MDRD) Non-Af 97, BUN/Creatinine Ratio 16.0, Glucose 159 H, Calcium 8.7, Total Bilirubin 0.70, AST 26, ALT 29, Alkaline Phosphatase 104, Total Protein 7.2, Albumin 3.7, Globulin 3.5, Albumin/Globulin Ratio 1.1 Radiography Diagnostic Testing: Radiology Impression Brain CT 11/13/21 03:17 IMPRESSION: No evidence of acute intracranial injury. Posterior fossa extra-axial mass consistent with meningioma. Follow-up nonemergent MRI may be helpful for further evaluation. Chronic microvascular ischemic disease. Electronically Signed: Yoli Hobson MD at 4:06 EDT , Chest X-Ray 11/13/21 03:17 IMPRESSION: No evidence of acute intrathoracic disease. Stable cardiomegaly. Electronically Signed: Yoli Hobson MD at 4:26 EDT Reading Location ID and State: [facility] [place] / [place] Tel , Service support , Hip/Pelvis X-Ray 11/13/21 03:18 IMPRESSION: Suspect acute right femoral neck fracture. CT may be helpful. Electronically Signed: Yoli Hobson MD at 4:50 EDT , Lower Extremity CT 11/13/21 10:00 IMPRESSION: Nondisplaced impacted basicervical fracture of the proximal right femur. Electronically Signed: Berlin Parks MD at 10:41 EDT , Assessment & Plan Assessment/Plan (1) Closed right hip fracture: (2) Hypokalemia: (3) Hyperglycemia: (4) Abnormal brain CT: PLAN: Plan Acute right femoral neck fracture -Ortho was having difficulty completely identifying the fracture on the x-rays and therefore CT of the hip was performed -CT showed a nondisplaced impacted basicervical fracture of the proximal right femur -Patient's pain is well controlled continue pain medication as ordered -OR per orthopedics -PT/OT following surgery -Eliquis on hold -Patient cleared by cardiology Leukocytosis -Suspect reactive -We will monitor Hypokalemia -P.o. potassium with 40 mill equivalents -Repeat in a.m. Chronic hyponatremia -Serum sodium is at baseline -Continue to monitor -Hyponatremia is mild Debility -PT/OT consultation -Patient may need placement after surgery -Discussed possible placement with patient and she is excepting of this if needed Abnormal CT of the brain -Suspected meningioma -MRI the brain is pending to confirm Hyperglycemia -Hemoglobin A1c is pending for morning -Patient does appear to have impaired fasting glucose levels Hypertension -Continue home medications as ordered with amlodipine, losartan, metoprolol -As needed hydralazine Hyperlipidemia -Continue statin Hypothyroidism -Continue Synthroid Valvular heart disease -10/08/2020 echo with normal LV systolic function, EF 60%, mildly dilated RV, mo derately enlarged LA, severely enlarged RA, mild MVI, moderately severe TVI, mild AV insufficiency, RVSP 37 mm Hg, inability to assess diastolic dysfunctio -Cardiology has evaluated the patient and cleared her for surgery GERD -Continue home PPI PAF -Continue metoprolol -Hold home apixaban given upcoming surgery and restart when okay with orthope dics Anxiety/depression -Continue home duloxetine DVT prophylaxis -As per general surgery -SCDs CODE STATUS -Full code as verified on admission emergency department
--- NOTE | 2021-11-13 15:09 | CASEMGMT ---
Social Work SW received referral that pt is deferring SNF decision to pt dgt Graciela. Phone call to Graciela who states she would like pt to go to [facility] at time of discharge. [facility] discharge sales planning coordinator updated and will make referral to the [facility]. Pt will need precertification with insurance but this cannot be started until after pt has surgery and therapy. GREGG will await determination if pt can be accepted at [facility]. Plan: [facility], pending acceptance and precert BRENDAN José
--- NOTE | 2021-11-13 15:28 | CASEMGMT ---
Discharge Package Delivery Driver [facility] De Olive[facility]/shemar Patient Safety Officer faxed over referral to [facility]. Will follow up. [facility] Discharge Package Delivery Driver
[2021-11-13] MEDS: Potassium Chloride Oral Tablet 20 MEQ 40 MEQ PO (15:34)
[2021-11-13] MEDS: Pantoprazole Sodium 40 MG Tablet PO (15:34)
[2021-11-13] MEDS: traMADol 50 MG Tablet PO (15:34)
[2021-11-13] MEDS: Cefazolin 2 GM in 0.9% Normal Saline 100 ML IV (17:02)
--- NOTE | 2021-11-13 17:03 | PCM.CONS.GEN ---
Assessment & Plan Assessment/Plan (1) Hyperglycemia: (2) Pre-operative cardiovascular examination: (3) Closed right hip fracture: PLAN: CT scan was reviewed. Radiologist calls it a nondisplaced fracture however it is sufficiently displaced in order to prohibit percutaneous fixation. Based on this now history of the disease process was discussed with patient including nonunions, malunions and avascular necrosis. We we discussed operative interventions including closed duction percutaneous pinning, hemiarthroplasty and total hip replacement. We discussed nonoperative interventions. We discussed risks of nonoperative intervention include prolonged bedrest which may lead to medical deterioration. Based on this I recommended proceeding with surgical intervention and the surgery I recommended was hemiarthroplasty due to patient's age, health of her hip and lack of previous hip pain and fracture pattern. Patient's daughter was at bedside we did discuss risks of surgery which include but onto blood loss, DVTs, PEs, nervous damage, infection, the risk of anesthesia including loss of life, leg length discrepancies, further fractures and dislocations. Patient and family demonstrate understanding and wish to proceed and were able to sign informed consent. Plan is to proceed with surgery tomorrow as patient is on Eliquis for atrial fibrillation and would benefit from 48 hours of anticoagulation for a surgery of this magnitude. Patient and family demonstrate understanding. Plan is for surgery tomorrow afternoon. Patient will be made n.p.o. for surgery. Pain control per primary service. Antibiotics on-call to the operating room. We will need to obtain signed consent. (4) Peripheral neuropathy: (5) Hypokalemia: (6) Atrial fibrillation: PLAN: Patient is on Eliquis. We will hold Eliquis until after surgery. HPI Consult Data Date of Consult: 11/13/21 HPI Narrative Reason for Consultation: Right hip pain HPI Narrative: JULIENNE FINNEY, is a 81 F who presents today with right hip pain. Patient notes that last evening while getting up from her bed she fell backwards. Patient has had 3-4 falls over the last week and was being worked up by her primary care physician. Unfortunately, this fall resulted in a hip injury. Patient presented the emergency department with 10 of 10 hip pain and unable to bear weight. She denies any numbness and tingling currently. Currently she rates her pain a 10 out of 10 up in her right anterior groin and thigh. She normally walks with a walker in relation to her previous bouts of instability she has been using her walker more recently. Her daughter is at bedside and confirms this history. She denies any chest pain or shortness of breath this time. She was seen by cardiology for appropriate clearance for surgery. Patient has a history of atrial fibrillation and has been on Eliquis. Her last dose was last night at 6:00 PM. Patient notes that tomorrow she was supposed to go to her last follow-up visit for a recent rotator cuff tendon repair by Dr. Rebollar in [place]. Additionally she is supposed to have a hernia repair in [place] this December. [facility] Medical History Abnormal electrocardiogram Abnormal pulmonary function test Atherosclerotic heart disease of [place] coronary artery without angina pectoris Chest discomfort Dyspnea (~01/30/21) Essential (primary) hypertension Hernia HLD (hyperlipidemia) Hyponatremia Hypothyroidism Mitral insufficiency, acute Neuropathy Non-rheumatic tricuspid valve insufficiency Nonrheumatic aortic (valve) insufficiency Nonrheumatic mitral (valve) insufficiency PAF (paroxysmal atrial fibrillation) Peripheral neuropathy Pure hypercholesterolemia Home Medications ascorbic acid (vitamin C) 500 mg tablet 500 mg PO QDAY supplement 09/14/17 [History Last Taken Unknown] multivitamin 1 tab PO DAILY supplement 06/29/18 [History Last Taken Unknown] potassium gluconate 500 mg (83 mg) tablet 500 mg PO DAILY supplement 10/29/20 [History Last Taken Unknown] inhalational spacing device #1 ea 11/07/20 [Rx Last Taken Unknown] atorvastatin 20 mg tablet 20 mg PO QDAY #90 tabs 04/07/21 [Rx Last Taken Unknown] amlodipine 5 mg tablet 5 mg PO QDAY #90 tabs 06/05/21 [Rx Last Taken Unknown] losartan 25 mg tablet 25 mg PO QDAY #90 tabs 07/07/21 [Rx Last Taken Unknown] levothyroxine 137 mcg tablet 137 mcg PO QDAY #90 tabs 07/09/21 [Rx Last Taken Unknown] omeprazole 40 mg capsule,delayed release 40 mg PO DAILY #90 caps 07/09/21 [Rx Last Taken Unknown] albuterol sulfate 90 mcg/actuation aerosol inhaler (Ventolin HFA) 2 puff inhalation Q6H PRN shortness of breath or wheezing #25.5 grams 07/23/21 [Rx Last Taken Unknown] duloxetine 30 mg capsule,delayed release 30 mg PO BID #180 caps 09/17/21 [Rx Last Taken Unknown] apixaban 2.5 mg tablet 2.5 mg PO BID #180 tabs 11/06/21 [Rx Last Taken Unknown] mecobalamin (vitamin B12) 1,000 mcg disintegrating tablet,sublingual 1,000 mcg sublingual Q OTHER DAY supplement 11/06/21 [History Last Taken Unknown] metoprolol tartrate 50 mg tablet 50 mg PO QHS heart/BP 11/06/21 [History Last Taken Unknown] capsaicin 0.025 % topical cream 1 applic topical TID PRN foot pain #60 grams 11/11/21 [Rx Last Taken Unknown] Allergy/AdvReac Type Severity Reaction Status Date / Time No Known Allergies Allergy Verified 11/06/21 14:09 Family History Mother CVA (cerebral vascular accident) Brother CAD (coronary artery disease) Sister CAD (coronary artery disease) Myocardial infarction Son CAD (coronary artery disease) Surgical History History of appendectomy History of bladder suspension procedure History of hernia repair History of hysterectomy History of repair of hiatal hernia History of thyroidectomy History of tubal ligation S/P right rotator cuff repair Social History household members: significant other Smoking Status: Never smoker alcohol intake: never substance use type: does not use caffeine: No what type of physical activity do you participate in: other details: [employer] Constitutional Constitutional: Reports systems reviewed and no addt'l complaints, except as documented Eyes Eyes: Reports systems reviewed and no addt'l complaints, except as documented ENT HEENT: Reports systems reviewed and no addt'l complaints, except as documented Cardiovascular Cardiovascular: Reports systems reviewed and no addt'l complaints, except as documented Respiratory/Chest Respiratory/Chest: Reports systems reviewed and no addt'l complaints, except as documented Gastrointestinal Gastrointestinal: Reports other Details: History of hernia Genitourinary Genitourinary: Reports systems reviewed and no addt'l complaints, except as documented Musculoskeletal Musculoskeletal: Reports systems reviewed and no addt'l complaints, except as documented Integumentary Integumentary: Reports systems reviewed and no addt'l complaints, except as documented Neurologic Neurologic: Reports systems reviewed and no addt'l complaints, except as documented Psychiatric Psychiatric: Reports systems reviewed and no addt'l complaints, except as documented Endocrine Endocrinology: Reports systems reviewed and no addt'l complaints, except as documented Hematologic/Lymphatic Hematologic/Lymphatic: Reports systems reviewed and no addt'l complaints, except as documented Allergic/Immunologic Allergic/Immunologic: Reports systems reviewed and no addt'l complaints, except as documented Physical Exam Const alert and oriented x3 General Appearance: cooperative HEENT normocephalic Eyes PERRL Neck No nuchal rigidity Resp normal respiratory effort Cardio Cardio Narrative: Regular pulse rate Extremity Extremity Narrative: Right lower extremity: Skin clean, dry, and intact. Limb is shortened and externally rotated Motor is intact dorsiflexion, EHL and plantar flexion. Sensation is intact to light touch saphenous, hermann,l superficial peroneal, deep peroneal and tibial distributions. Calves are soft and supple. Skin no rashes or lesions noted and no wounds Neuro oriented x3 Psych mental status grossly normal Medical Records Data Attestation: I reviewed the patient's medical records Lab / Micro Data Attestation: I reviewed the patient's lab results. Result Diagrams: 11/13/21 03:25 11/13/21 08:35 Labs: Laboratory Results - last 24 hr 11/13/21 03:25: WBC 16.0 H, RBC 4.08 L, Hgb 12.9, Hct 37.7, MCV 92.4, MCH 31.6, MCHC 34.2, RDW Std Deviation 43.3, RDW Coeff of Koko 12.7, Plt Count 296, MPV 8.8, Immature Gran % (Auto) 0.700, Neut % (Auto) 82.0 H, Lymph % (Auto) 11.5 L, [place] % (Auto) 5.2, Eos % (Auto) 0.3, Baso % (Auto) 0.3, Absolute Neuts (auto) 13.1 H, Absolute Lymphs (auto) 1.84, Nucleated RBC % 0 11/13/21 03:25: Sodium 131 L, Potassium 3.9, Chloride 97 L, Carbon Dioxide 28.0, Anion Gap 6, BUN 11, Creatinine 0.61, Estim Creat Clear Calc 36.50, Est GFR (MDRD) Af Amer 121, Est GFR (MDRD) Non-Af 100, BUN/Creatinine Ratio 18.0, Glucose 147 H, Calcium 8.6, Total Bilirubin 0.40, AST 32, ALT 31, Alkaline Phosphatase 103, Troponin I High Sens 7, Total Protein 7.4, Albumin 3.6, Globulin 3.8, Albumin/Globulin Ratio 0.9 11/13/21 04:00: Urine Color Yellow, Urine Clarity Clear, Urine pH 8.0, Ur Specific [place]thon 1.010, Urine Protein 30 H, Urine Glucose (UA) Normal, Urine Ketones Negative, Urine Occult Blood Negative, Urine Nitrite Negative, Urine Bilirubin Negative, Urine Urobilinogen Normal, Ur Leukocyte Esterase Negative, Urine RBC 0 SEEN, Urine WBC 0 SEEN, Ur Squamous Epith Cells 0-5 SEEN, Urine Bacteria RARE, Urine Mucus 0 SEEN 11/13/21 08:35: Sodium 131 L, Potassium 3.2 L, Chloride 97 L, Carbon Dioxide 27.0, Anion Gap 7, BUN 10, Creatinine 0.62, Estim Creat Clear Calc 39.70, Est GFR (MDRD) Af Amer 118, Est GFR (MDRD) Non-Af 97, BUN/Creatinine Ratio 16.0, Glucose 159 H, Calcium 8.7, Total Bilirubin 0.70, AST 26, ALT 29, Alkaline Phosphatase 104, Total Protein 7.2, Albumin 3.7, Globulin 3.5, Albumin/Globulin Ratio 1.[address] 11/13/21 03:17 IMPRESSION: No evidence of acute intracranial injury. Posterior fossa extra-axial mass consistent with meningioma. Follow-up nonemergent MRI may be helpful for further evaluation. Chronic microvascular ischemic disease. Electronically Signed: Yoli Hobson MD at 4:06 EDT , Chest X-Ray 11/13/21 03:17 IMPRESSION: No evidence of acute intrathoracic disease. Stable cardiomegaly. Electronically Signed: Yoli Hobson MD at 4:26 EDT , Hip/Pelvis X-Ray 11/13/21 03:18 IMPRESSION: Suspect acute right femoral neck fracture. CT may be helpful. Electronically Signed: Yoli Hobson MD at 4:50 EDT Reading Location ID and State: [facility] / [place] Tel , Service support , Lower Extremity CT 11/13/21 10:00 IMPRESSION: Nondisplaced impacted basicervical fracture of the proximal right femur. Electronically Signed: Berlin Parks MD at 10:41 EDT ,
[2021-11-13] MEDS: DULoxetine Hcl 30 MG Capsule PO (22:16)
[2021-11-13] MEDS: Metoprolol Tartrate 50 MG Tablet PO (22:16)
[2021-11-13] MEDS: Senna/Docusate Sodium 1 Tablet 2 TABLET PO (22:16)
[2021-11-13] MEDS: Acetaminophen 325 MG Tablet 650 MG PO (22:20)
[2021-11-13] MEDS: MELATONIN 3 MG TABLET PO (22:20)
[2021-11-14] VITALS (14 sets, daily range): BP systolic 121–161; BP diastolic 67–91; PULSE 65–125; RESP 14–20; TEMP 36.7–37.7; O2SAT 93–98; BMI 26.6; BMI 26.4
[2021-11-14] MEDS: 0.9% Normal Saline 1,000 ML 100 ML IV ×3 (02:08→15:16)
[2021-11-14] MEDS: traMADol 50 MG Tablet PO (02:17)
[2021-11-14 05:39] LABS: Absolute Lymphocyte Count 1.42 X10^3/uL (0.83-4.51); Absolute Neutrophil Count 12.9 X10^3/uL (2.0-7.7); Basophil# 0.04 X10^3/uL; Basophil% 0.3 % (0-1); Eosinophil# 0.04 X10^3/uL; Eosinophils% 0.3 % (0-5); Hematocrit 37.2 % (37-47); Hemoglobin 12.6 g/dL (12.0-15.0); Lymphocyte # 1.42 X10^3/ul (0.83-4.51); Lymphocyte % 9.2 % (19-41); Mean Corp Hgb Conc 33.9 g/dL (32-36); Mean Corpuscular Hgb 31.8 pg (27.0-32.0); Mean Corpuscular Volume 93.9 fL (81-99); Mean Platelet Vol. 9.1 fl (6.2-12.0); Monocyte# 1.01 X10^3/uL; Monocyte% 6.5 % (0-10); NRBC Flagged by Analyzer 0 % (0-5); Neutrophil % 83.2 % (47-70); Platelet Count 255 K/mm3 (150-450); RBC Distribution Width SD 44.9 fl (35.1-43.9); Red Blood Count 3.96 M/mm3 (4.2-5.4); White Blood Count 15.5 K/mm3 (4.4-11.0)
[2021-11-14 05:59] LABS: ALB/GLOB Ratio 0.9 RATIO (0.9-2.4); AST(SGOT) 24 U/L (15-37); Alanine Aminotransfer ALT/SGPT 23 U/L (13-56); Albumin, Serum 2.9 g/dL (3.2-5.0); Alkaline Phosphatase 86 U/L (45-117); Anion Gap 4 (5-15); BUN 12 mg/dL (7-18); BUN/Creat Ratio 19.1 RATIO (10-20); Calcium,Total 8.5 mg/dL (8.5-10.1); Chloride 100 mmol/L (98-107); Creatinine, Serum 0.63 mg/dL (0.55-1.02); EST Glomerular Filtration Rate 97 mL/min (>60); Est Glom Filt Rate - Afr Amer 117 mL/min (>60); Globulin 3.4 g/dL (2.2-4.2); Glucose 120 mg/dL (74-106); Potassium 4.3 mmol/L (3.5-5.1); Protein, Total 6.3 g/dL (6.4-8.2); Sodium Level 133 mmol/L (136-145)
[2021-11-14 06:06] LABS: Thyroid Stim Hormone (TSH) 4.31 uIU/mL (0.358-3.74)
--- NOTE | 2021-11-14 07:41 | CASEMGMT ---
Discharge Oncologist [facility] reached out. Patient has been accepted. [facility] Discharge Oncologist
[2021-11-14 07:54] LABS: Hemoglobin A1c 5.5 % (3.8-5.6)
--- NOTE | 2021-11-14 09:54 | PN.HOSP_ITS ---
Subjective Subjective No significant issues overnight. Patient states her pain is controlled currently. Plan is for OR later today. I did rediscussed with her her likelihood of needing placement after discharge and she voices understanding. Anticipate PT/OT evaluation either later today after surgery or tomorrow. Objective Data Objective Data Vital Signs: Vital Signs Temp Pulse Resp BP Pulse Ox O2 Del Method O2 Flow Rate 98.7 F 65 14 132/84 H 93 Room Air 2 11/14/21 02:30 11/14/21 02:30 11/14/21 02:30 11/14/21 02:30 11/14/21 02:30 11/14/21 09:53 11/13/21 08:04 Oxygen Flow Rate (L/min) 2 Oxygen Delivery Method Room Air Weight: 72.5 kg Body Mass Index (BMI) 26.6 Intake & Output: Intake and Output for Last 24 Hours 11/12/21 11/13/21 11/14/21 23:59 23:59 23:59 Intake Total 1200 / 1540 401.75 / 401.75 Output Total 2900 / 3200 475 / 475 Balance -1700 / -1660 -73.25 / -73.25 Lab / Micro Data Result Diagrams: 11/14/21 05:20 11/14/21 05:20 Labs: Laboratory Results - last 24 hr 11/14/21 05:20: WBC 15.5 H, RBC 3.96 L, Hgb 12.6, Hct 37.2, MCV 93.9, MCH 31.8, MCHC 33.9, RDW Std Deviation 44.9 H, RDW Coeff of Koko 13.0, Plt Count 255, MPV 9.1, Immature Gran % (Auto) 0.500, Neut % (Auto) 83.2 H, Lymph % (Auto) 9.2 L, [place] % (Auto) 6.5, Eos % (Auto) 0.3, Baso % (Auto) 0.3, Absolute Neuts (auto) 12.9 H, Absolute Lymphs (auto) 1.42, Nucleated RBC % 0 11/14/21 05:20: Sodium 133 L, Potassium 4.3, Chloride 100, Carbon Dioxide 29.0, Anion Gap 4 L, BUN 12, Creatinine 0.63, Estim Creat Clear Calc 39.70, Est GFR (MDRD) Af Amer 117, Est GFR (MDRD) Non-Af 97, BUN/Creatinine Ratio 19.1, Glucose 120 H, Calcium 8.5, Total Bilirubin 0.80, AST 24, ALT 23, Alkaline Phosphatase 86, Total Protein 6.3 L, Albumin 2.9 L, Globulin 3.4, Albumin/Globulin Ratio 0.9 11/14/21 05:20: Hemoglobin A1c 5.5 11/14/21 05:20: TSH 4.31 H 11/14/21 05:20: Blood Type O NEGATIVE, Antibody Screen NEGATIVE Radiography Diagnostic Testing: Radiology Impression Brain MRI 11/13/21 07:59 IMPRESSION: Meningioma measuring 2.2 cm inferior aspect of the left tentorium. Electronically Signed: Chad Hartmann MD at 19:10 EDT , Lower Extremity CT 11/13/21 10:00 IMPRESSION: Nondisplaced impacted basicervical fracture of the proximal right femur. Electronically Signed: Berlin Parks MD at 10:41 EDT , Physical Exam Const alert, oriented x3, no apparent distress, healthy appearing and well nourished Constitutional Narrative: Elderly white female lying in bed, appears comfortable at this time, watching television, nontoxic HEENT head/scalp atraumatic and moist oral mucous membranes HEENT Narrative: Edentulous, Mallampati 2, no thrush Resp normal respiratory effort, no retractions, no use of accessory muscles and clear to auscultation bilaterally Auscultation: Negative for crackles, rales, rhonchi or wheezes Cardio regular rate, S1 normal heart sound, S2 normal heart sound, no murmurs, no rub, no gallops, no clicks and no JVD Cardio Narrative: Irregular rhythm with rate control GI normal to inspection, nondistended, normoactive bowel sounds, soft to palpation, non-tender and non-distended; Negative for hepatosplenomegaly Extremity no clubbing, cyanosis or edema Extremity Narrative: Right lower extremity is shortened and externally rotated Neuro oriented x3, CN's II-XII intact bilaterally and no focal motor deficits Neuro Narrative: Limited movement right lower extremity secondary to pain Sensorium / Orientation: awake, alert, oriented to person, oriented to place and oriented to time Speech: speech normal Assessment & Plan Assessment/Plan (1) Closed right hip fracture: (2) Hypokalemia: (3) Hyperglycemia: (4) Abnormal brain CT: (5) Leukocytosis: PLAN: Plan Acute right femoral neck fracture -Ortho was having difficulty completely identifying the fracture on the x-rays a nd therefore CT of the hip was performed -CT showed a nondisplaced impacted basicervical fracture of the proximal right femur -Patient's pain is well controlled continue pain medication as ordered -OR later today for hemiarthroplasty -PT/OT following surgery -Eliquis on hold -Patient cleared by cardiology Leukocytosis -Suspect reactive -Slowly trending down -Continue to monitor -May trend up after surgery reactively Hypokalemia -Resolved -Repeat in a.m. Chronic hyponatremia -Serum sodium is at baseline and remained stable -Continue to monitor -Hyponatremia is mild Debility -PT/OT consultation -Suspect patient will need placement after surgery Abnormal CT of the brain -Suspected meningioma -MRI of the brain confirms meningioma 2.2 cm at the inferior aspect of the left tentorium Hyperglycemia -A1c was 5.5 -Suspect blood sugar elevations were predominantly reactive with stress -A.m. fasting sugar was 120 Hypertension -Continue home medications as ordered with amlodipine, losartan, metoprolol -As needed hydralazine Hyperlipidemia -Continue statin Hypothyroidism -Continue Synthroid Valvular heart disease -10/08/2020 echo with normal LV systolic function, EF 60%, mildly dilated RV, moderately enlarged LA, severely enlarged RA, mild MVI, moderately severe TVI, mild AV insufficiency, RVSP 37 mm Hg, inability to assess diastolic dysfunctio -Cardiology has evaluated the patient and cleared her for surgery GERD -Continue home PPI PAF -Continue metoprolol -Hold home apixaban given upcoming surgery and restart when okay with orthopedics Anxiety/depression -Continue home duloxetine DVT prophylaxis -As per general surgery -SCDs CODE STATUS -Full code as verified on admission emergency department Charges/Coding Visit Charges Inpatient E&M: 04178 Subs Hosp L2
[2021-11-14] MEDS: Morphine 4 MG/ML Syringe IV (11:43)
[2021-11-14] MEDS: 0.9% Saline Lock 10 ML Syringe IV (11:43)
--- NOTE | 2021-11-14 14:20 | RAD_ITS ---
STUDY: X-RAY - PELVIS AND RIGHT HIP REASON FOR EXAM: Female, 81 years old. ANTERIOR HIP TECHNIQUE: 1 views of the pelvis and hip. COMPARISON: None. FINDINGS: Intraoperative imaging provided for anterior right total hip replacement. RAD/Hip 1 view with Pelvis IMPRESSION: Intraoperative imaging provided for anterior right total hip replacement. Electronically Signed: Berlin Parks MD at 14:53 EDT ,
[2021-11-14] MEDS: TXA in NS 100ml (Placed in Wound) OPERA.SITE (14:47)
--- NOTE | 2021-11-14 15:02 | PCM.OPRPT ---
Report of Operation Date of Procedure: 11/14/21 Pre-Operative Diagnosis: Right hip displaced femoral neck fracture Post-Operative Diagnosis: Right hip displaced femoral neck fracture Surgery/Procedure Performed:: Right direct anterior partial hip replacement Description of Surgical Findings:: Stable hip with equal leg length Surgeon: Long Tay men's locker room attendant: Antonia Fair Type of Anesthesia: General Anesthesiologist: Saúl Villa Special Medications: 2 g Ancef, 2 g TXA lavage prior to closure, joint cocktail (5 mg Duramorph, 30 mL of 0.5% Ropivicaine, 1000 units of epinephrine, 30 mg of Toradol) Specimen's removed: Bony cuts Estimated Blood Loss (mL): 300 Fluids Replaced: 1000 mL crystalloid Description of Procedure: Components used: 1. Insignia Granville femoral stem size 5 high offset 2. [place] 48 mm bipolar cobalt-chromium component 3. Corazon cobalt-chromium 26mm, +4 mm femoral head Brief history operative indications: 81 yo f who presented with a displaced right femoral neck fracture. Right hip hemiarthroplasty was discussed with the patient with risks and benefits including but not limited to blood loss, DVTs, PEs, neurovascular damage, dislocation, general risks of anesthesia including loss of life. Patient demonstrated an understanding medical clearance is obtained the patient was consented for surgery. Procedure: On the date of procedure the patient was seen and evaluated once more in the preoperative area. She was appropriate for surgery we had waited 2 days from her last dose of apixaban. The patient's right hip was marked in the preoperative area. Patient was then taken back to the operating room where anesthesia assumed control of the C-spine and airway and administered anesthetic. Patient was transferred to the operating table and placed in the supine position. The hips were placed at the break of the bed and a sacral bump was placed. The right lower extremity was then prepped out in a sterile fashion using chlorhexidine while the surgeon scrubbed. The PA was vital in the positioning of the patient. Upon reentering the room the right lower extremity was draped in the standard orthopedic fashion and the incision was marked. A timeout was called and everyone agreed upon the side, the site, the procedure be performed, antibody given, and patient's identity. At this time incision was made through skin, subcutaneous tissue, and fat down to fascia. The fascia was then incised and the TFL was retracted laterally. A retractor was placed on the lateral border of the femoral neck. Attention was directed to the inferior portion of the approach and all crossing vessels were identified and appropriately coagulated. A retractor was then placed on the medial portion of the femoral neck. The anterior capsule was then cleared of all soft tissue and then H shaped capsulotomy was made. The retractors were then placed inside the capsule. The femoral neck was identified and a cleanup cut was made. At this time a power corkscrew was used to remove the femoral head. The head was measured on the back table for a 48 mm bipolar head. Attention was then turned to the femur. Soft tissue releases on the medial and lateral femoral neck were appropriately done, the leg was externally rotated and lateralized. A Cisneros retractor was placed medially and proximally to the greater trochanter this allowed appropriate visualization and exposure of the femoral canal. Rongeour was then used to remove excess lateral bone. A canal finder and entry broach were used to open the proximal canal. Once we verified we were down the femoral canal we subsequently broached up to a size 5 femur. The appropriate neck was placed in the previously selected head was trialed with a 4 mm neck. Traction was pulled and the hip was reduced with internal rotation. Once it was appropriately reduced and stability was checked. There was minimal shuck, equal leg lengths and appropriate stability with hyperextension and external rotation as well as with 90? flexion and internal rotation. Fluoroscopy was then also used to verify the position of the components and leg lengths using the contralateral side for comparison. The trial components were then dislocated the proximal femur was again exposed and the components were removed from the wound. The final components were verified and opened. The wound was copiously irrigated out with normal saline. The acetabulum was checked for any residual debris. The final components were placed and impacted. Traction and internal rotation were again used to reduce the hip. After adequate reduction the hip remained stable with appropriate leg lengths. The final components were once again checked with live fluoroscopy and were found to be satisfactory. The wound was then copiously irrigated with normal saline once more, and hemostasis was obtained. Closure was then done using #1 Vicryl runner to close the fascia. A 2-0 vicryl interuppted sutures were used to close the subcutaneous skin. A 3-0 Monocryl and Steri-Strips were used for final skin closure. A Silverlon dressing was placed. Patient was awakened by anesthesia and transferred to the [facility]. Patient was then transferred to the PACU for recovery. Postoperative plan: Patient will get 24 hours postop antibiotics. Patient will get in-house physical therapy and will be weight-bear as tolerated. Patient will follow up in office in 2 weeks for a wound check and x-rays. Patient will resume apixaban tomorrow for DVT prophylaxis. Complications No intraoperative complications Admit VTE Documentation VTE Present on Admission: No VTE Mechan Device Prophylaxis: SCD's and Thigh High LINDEN Hose VTE Pharm Prophylaxis ordered?: Yes
--- NOTE | 2021-11-14 15:13 | CASEMGMT ---
Social Work Pt has been accepted at the [facility]. Pt currently in surgery and precert cannot be started until surgery is complete and pt has therapy. GREGG spoke with pt dgt Graciela and informed of above. Graciela is agreeable to discharge plan. [facility] BRENDAN José
--- NOTE | 2021-11-14 15:35 | RAD_ITS ---
STUDY: X-RAY - PELVIS AND RIGHT HIP REASON FOR EXAM: Female, 81 years old. Post Op -- AP both hips on single karol/lateral of op hip PACU TECHNIQUE: 2 views of the pelvis and hip. COMPARISON: None. FINDINGS: There are degenerative changes of the pubic symphysis with articular narrowing and sclerosis. There is a right total hip arthroplasty in place. The alignment appears grossly anatomic. There are postsurgical changes within the soft tissues of the right upper thigh. There are degenerative changes of the left hip. There are coils projecting over the lower pelvis suggestive of prior abdominal wall repair. RAD/Hip Min 2 Views (Portable) IMPRESSION: Right total hip arthroplasty, grossly anatomic alignment. Electronically Signed: Lisa Mcdonald MD at 17:18 EDT ,
--- NOTE | 2021-11-14 16:00 | BON_PTH ---
PATIENT: JULIENNE FINNEY LOC: [facility]3 U#:[id number] AGE/SX: 81/F ROOM: MS318 RE11/13/[address]: Dr. May Gotti MD : 1940 BED: 1 DIS: 11/18/2021 SPEC #: [id number] RECD: 11/14/21 18:54 STATUS: RADHA REQ #: [id number] LOLA: 11/14/21 16:[address]: Long Tay DEPT: SURGICAL PATHOLOGY RECD BY: Irma Veronica ENTERED: 11/17/21 08:00 SP TYPE: Bone OTHR DR: MD Dr. Alejandra Antonio MD Dr. Douglas R Brown, DO Dr. Kathryn Lee, DO Dr. Nagapradee Nagajothi, MD Dr. Steven Widmer, MD Tissues: Hip, NOS Procedures: Decalcification bone/plaque Surgery Specimen Level V Comments: @ Ordering doctor for DEC edited from to DR.SWIDME Terrazas by AL at 11/17/21927 @ Ordering doctor for SUV edited from to DR.SWIDME Terrazas by AL at 11/17/21927 @ Submitting doctor edited from to DR.SWIDME Mk MELENDEZ at 11/17/21927 HEADER OPERATION: Total hip anterior approach PRE-OP DIAGNOSIS: Right hip fracture, fall TISSUE SUBMITTED: Right hip bone and tissue MICROSCOPIC DIAGNOSIS Bone and tissue of right hip, total hip resection: Consistent with degenerative joint disease. AM:veronica 11/20/2021 MICROSCOPIC DESCRIPTION Slides are reviewed. GROSS DESCRIPTION Received is one container labeled with the patient's name and designated femoral head and tissue. The specimen consists of a chen femoral head measuring 4.5 x 4.5 x 4 cm. The articular surface contains focal pitting. The nonarticular surface is hemorrhagic and irregular consistent with fracture site. Contract Technical Writer sections are submitted in two cassettes after decalcification. / AM:veronica 11/17/2021 TC:5 CPT: 68432, 67113
[2021-11-14] MEDS: Pantoprazole Sodium 40 MG Tablet PO (21:53)
[2021-11-14] MEDS: DULoxetine Hcl 30 MG Capsule PO (21:53)
[2021-11-14] MEDS: Acetaminophen 500 MG Tablet 1000 MG PO (21:53)
[2021-11-14] MEDS: Senna/Docusate Sodium 1 Tablet 2 TABLET PO (21:53)
[2021-11-14] MEDS: Cefazolin 1 GM/50 ML BAG IV (21:54)
[2021-11-14] MEDS: Metoprolol Tartrate 50 MG Tablet PO (21:54)
[2021-11-15] VITALS (8 sets, daily range): BP systolic 122–155; BP diastolic 80–94; PULSE 71–94; RESP 18–20; TEMP 36.8–37.2; O2SAT 92–97
[2021-11-15] MEDS: 0.9% Normal Saline 1,000 ML 100 ML IV (02:31)
[2021-11-15] MEDS: Cefazolin 1 GM/50 ML BAG IV (06:06)
[2021-11-15] MEDS: Levothyroxine 137 MCG Tablet PO (06:07)
[2021-11-15] MEDS: Acetaminophen 500 MG Tablet 1000 MG PO ×3 (06:09→22:34)
[2021-11-15 07:00] LABS: Absolute Lymphocyte Count 1.65 X10^3/uL (0.83-4.51); Basophil# 0.03 X10^3/uL; Basophil% 0.2 % (0-1); Eosinophil# 0.04 X10^3/uL; Eosinophils% 0.2 % (0-5); Hematocrit 33.1 % (37-47); Hemoglobin 10.6 g/dL (12.0-15.0); Lymphocyte # 1.65 X10^3/ul (0.83-4.51); Lymphocyte % 9.7 % (19-41); Mean Corpuscular Hgb 31.1 pg (27.0-32.0); Mean Corpuscular Volume 97.1 fL (81-99); Mean Platelet Vol. 9.4 fl (6.2-12.0); Monocyte# 1.25 X10^3/uL; Monocyte% 7.3 % (0-10); NRBC Flagged by Analyzer 0 % (0-5); Neutrophil # 13.98 X10^3/uL (2.7-7.7); Neutrophil % 81.9 % (47-70); Platelet Count 226 K/mm3 (150-450); RBC Distribution Width SD 46.1 fl (35.1-43.9); Red Blood Count 3.41 M/mm3 (4.2-5.4); White Blood Count 17.1 K/mm3 (4.4-11.0)
[2021-11-15 07:41] LABS: ALB/GLOB Ratio 0.8 RATIO (0.9-2.4); AST(SGOT) 27 U/L (15-37); Alanine Aminotransfer ALT/SGPT 19 U/L (13-56); Albumin, Serum 2.5 g/dL (3.2-5.0); Alkaline Phosphatase 76 U/L (45-117); Anion Gap 10 (5-15); BUN 15 mg/dL (7-18); BUN/Creat Ratio 22.1 RATIO (10-20); Calcium,Total 7.9 mg/dL (8.5-10.1); Chloride 104 mmol/L (98-107); Creatinine, Serum 0.68 mg/dL (0.55-1.02); EST Glomerular Filtration Rate 88 mL/min (>60); Est Glom Filt Rate - Afr Amer 107 mL/min (>60); Globulin 3.1 g/dL (2.2-4.2); Glucose 115 mg/dL (74-106); Potassium 4.4 mmol/L (3.5-5.1); Protein, Total 5.6 g/dL (6.4-8.2); Sodium Level 135 mmol/L (136-145)
[2021-11-15] MEDS: Ensure Surgery 237 ML LIQUID PO ×3 (07:50→16:35)
[2021-11-15] MEDS: amLODIPine 5 MG Tablet PO (07:52)
[2021-11-15] MEDS: Senna/Docusate Sodium 1 Tablet 2 TABLET PO ×2 (07:52→22:33)
[2021-11-15] MEDS: Losartan Potassium 25 MG Tablet PO (07:52)
[2021-11-15] MEDS: Atorvastatin Calcium 20 MG Tablet PO (07:52)
[2021-11-15] MEDS: DULoxetine Hcl 30 MG Capsule PO ×2 (07:52→22:35)
[2021-11-15] MEDS: APIXABAN 2.5 MG TABLET PO ×2 (07:52→22:34)
--- NOTE | 2021-11-15 10:06 | NURSING ---
vmail left for social work supervisor Nikia hsu today as family in room requesting to talk with social work supervisor as wishing to change ECF to [facility] of [facility] [place].
--- NOTE | 2021-11-15 11:40 | PCM.PN.ORT ---
Subjective Subjective The patient was sitting in bedside chair upon examination with family present. Patient denies any chest pain, shortness of breath, dizziness, lightheadedness, nausea or vomiting, or calf pain. Pain is controlled on medications. No adverse overnight events. Patient overall appears to be doing well this morning. Patient did have a displaced right femoral neck fracture which did require hemiarthroplasty. Upon reviewing pre and postoperative x-rays I did identify a bony lesion on the cortices of the midshaft right femur. Patient denies any personal history of cancer. Objective Data Objective Data Vital Signs: Vital Signs Temp Pulse Resp BP Pulse Ox O2 Del Method O2 Flow Rate 98.2 F 79 18 155/94 H 93 Room Air 2 11/15/21 09:14 11/15/21 09:14 11/15/21 09:14 11/15/21 09:14 11/15/21 09:14 11/15/21 09:14 11/14/21 20:41 Oxygen Flow Rate (L/min) 2 Oxygen Delivery Method Room Air Weight: 72.6 kg Body Mass Index (BMI) 26.4 Intake & Output: Intake and Output for Last 24 Hours 11/13/21 11/14/21 11/15/21 23:59 23:59 23:59 Intake Total 1200 / 1540 2561.75 / 2561.75 1551.67 / 1551.67 Output Total 2900 / 3200 975 / 1175 200 / 200 Balance -1700 / -1660 1586.75 / 1386.75 1351.67 / 1351.67 Lab / Micro Data Result Diagrams: 11/15/21 06:36 11/15/21 06:36 Labs: Laboratory Results - last 24 hr 11/15/21 06:36: WBC 17.1 H, RBC 3.41 L, Hgb 10.6 L, Hct 33.1 L, MCV 97.1, MCH 31.1, MCHC 32.0 D, RDW Std Deviation 46.1 H, RDW Coeff of Koko 13.0, Plt Count 226, MPV 9.4, Immature Gran % (Auto) 0.700, Neut % (Auto) 81.9 H, Lymph % (Auto) 9.7 L, [place] % (Auto) 7.3, Eos % (Auto) 0.2, Baso % (Auto) 0.2, Absolute Neuts (auto) 14.0 H, Absolute Lymphs (auto) 1.65, Nucleated RBC % 0 11/15/21 06:36: Sodium 135 L, Potassium 4.4, Chloride 104, Carbon Dioxide 21.0, Anion Gap 10, BUN 15, Creatinine 0.68, Estim Creat Clear Calc 39.70, Est GFR (MDRD) Af Amer 107, Est GFR (MDRD) Non-Af 88, BUN/Creatinine Ratio 22.1 H, Glucose 115 H, Calcium 7.9 L, Total Bilirubin 0.50, AST 27, ALT 19, Alkaline Phosphatase 76, Total Protein 5.6 L, Albumin 2.5 L, Globulin 3.1, Albumin/Globulin Ratio 0.8 L Radiography Diagnostic Testing: Radiology Impression Hip/Pelvis X-Ray 11/14/21 14:20 IMPRESSION: Intraoperative imaging provided for anterior right total hip replacement. Electronically Signed: Berlin Parks MD at 14:53 EDT , Hip X-Ray 11/14/21 15:35 IMPRESSION: Right total hip arthroplasty, grossly anatomic alignment. Electronically Signed: Lisa Mcdonald MD at 17:18 EDT , Physical Exam Narrative Vital signs stable and afebrile. SCDs and LINDEN hose are in place bilaterally Right thigh is soft and supple, anticipated right thigh swelling postsurgically Patient is able to plantarflex and dorsiflex actively. Sensation is intact to light touch to saphenous, sural, superficial and deep peroneal, and tibial distribution. Dressing is clean dry and intact. Negative Homans bilaterally, negative signs and symptoms of DVT. Const alert, oriented x3 and no apparent distress Assessment & Plan Assessment/Plan (1) History of right hip hemiarthroplasty: PLAN: 1. S/P direct anterior right hip hemiarthroplasty POD #1 2. Continue Pain Medications: Continue with Tylenol and tramadol prescribed by medicine. 3. DVT Prophylaxis: Patient will resume her Eliquis today for DVT prophylaxis 4. PT/OT: Weightbearing as tolerated with walker. Follow direct anterior total hip arthroplasty precautions 5. H & H: 10.6/33.1, asymptomatic. Postoperative anemia secondary to acute blood loss from surgery without any intra operative complications. 6. Encouraged Incentive Spirometry 7. Continue postoperative medical management per medicine: Case was discussed with medicine today as well as the MRI of the femur 8. Right midshaft bony lesion: Upon reviewing pre and postoperative x-rays there was an area of concern over the midshaft of the right femur which did show a bony lesion involving the cortices which was appreciated on both pre and postop x-rays. There was no documentation of this on radiology report. Patient denies any history of personal cancer. I did discuss images and treatment with Dr. Lico Tay. At this time we will get an MRI with and without contrast of the right femur for further examination of the bony lesion. I did discuss this with the patient and her family member. 9. Disposition: Continue treatment per medicine. We will follow postoperative treatment for the right hip hemiarthroplasty. She will be weightbearing as tolerated. The dressing will remain on for 5 days postoperatively. She can shower with the dressing. Once the dressing has been removed she can continue to shower and get incision wet. Avoid any ointments directly on the incision for 6 weeks postoperatively. I discussed with the patient postoperative symptoms which could include right thigh swelling as well as soreness which can be present for up to 6 weeks postoperatively. They did voice understanding agreement. She will avoid submerging under water for 6 weeks postoperatively. We will need to see the patient back 2 weeks postoperatively in our office for repeat x-rays and incision check. We will continue to follow the patient tomorrow as well as review MRI findings for the right femur. This dictation was created using voice recognition software. Phonetic and/or grammatical errors may exist.
--- NOTE | 2021-11-15 12:18 | PN.HOSP_ITS ---
Subjective Subjective Patient reports she is feeling well this morning. Having minimal pain in her right hip postoperatively. Discussed case with Olayinka Albert from Dr. Tay's office and evidently on the preoperative x-rays a lucency was noted in the femur therefore an MRI is pending to further evaluate. Objective Data Objective Data Vital Signs: Vital Signs Temp Pulse Resp BP Pulse Ox O2 Del Method O2 Flow Rate 98.2 F 79 18 155/94 H 93 Room Air 2 11/15/21 09:14 11/15/21 09:14 11/15/21 09:14 11/15/21 09:14 11/15/21 09:14 11/15/21 09:14 11/14/21 20:41 Oxygen Flow Rate (L/min) 2 Oxygen Delivery Method Room Air Weight: 72.6 kg Body Mass Index (BMI) 26.4 Intake & Output: Intake and Output for Last 24 Hours 11/13/21 11/14/21 11/15/21 23:59 23:59 23:59 Intake Total 1200 / 1540 2561.75 / 2561.75 1791.67 / 1791.67 Output Total 2900 / 3200 975 / 1175 200 / 200 Balance -1700 / -1660 1586.75 / 1386.75 1591.67 / 1591.67 Lab / Micro Data Result Diagrams: 11/15/21 06:36 11/15/21 06:36 Labs: Laboratory Results - last 24 hr 11/15/21 06:36: WBC 17.1 H, RBC 3.41 L, Hgb 10.6 L, Hct 33.1 L, MCV 97.1, MCH 3 1.1, MCHC 32.0 D, RDW Std Deviation 46.1 H, RDW Coeff of Koko 13.0, Plt Count 226, MPV 9.4, Immature Gran % (Auto) 0.700, Neut % (Auto) 81.9 H, Lymph % (Auto) 9.7 L, [place] % (Auto) 7.3, Eos % (Auto) 0.2, Baso % (Auto) 0.2, Absolute Neuts (auto) 14.0 H, Absolute Lymphs (auto) 1.65, Nucleated RBC % 0 11/15/21 06:36: Sodium 135 L, Potassium 4.4, Chloride 104, Carbon Dioxide 21.0, Anion Gap 10, BUN 15, Creatinine 0.68, Estim Creat Clear Calc 39.70, Est GFR (MDRD) Af Amer 107, Est GFR (MDRD) Non-Af 88, BUN/Creatinine Ratio 22.1 H, Glucose 115 H, Calcium 7.9 L, Total Bilirubin 0.50, AST 27, ALT 19, Alkaline Phosphatase 76, Total Protein 5.6 L, Albumin 2.5 L, Globulin 3.1, Albumin/Globulin Ratio 0.8 L Radiography Diagnostic Testing: Radiology Impression Hip/Pelvis X-Ray 11/14/21 14:20 IMPRESSION: Intraoperative imaging provided for anterior right total hip replacement. Electronically Signed: Berlin Parks MD at 14:53 EDT , Hip X-Ray 11/14/21 15:35 IMPRESSION: Right total hip arthroplasty, grossly anatomic alignment. Electronically Signed: Lisa Mcdonald MD at 17:18 EDT , Physical Exam Const alert, oriented x3, no apparent distress, healthy appearing and well nourished Constitutional Narrative: Elderly white female sitting up in a chair at the bedside, is present, appears comfortable at this time, watching television and eating breakfast, nontoxic HEENT head/scalp atraumatic and moist oral mucous membranes HEENT Narrative: Mallampati 2-3, dentures in place, no thrush Resp normal respiratory effort, no retractions, no use of accessory muscles and clear to auscultation bilaterally Auscultation: Negative for crackles, rales, rhonchi or wheezes Cardio regular rate, S1 normal heart sound, S2 normal heart sound, no murmurs, no rub, no gallops, no clicks and no JVD Cardio Narrative: Irregular rhythm with rate control GI normal to inspection, nondistended, normoactive bowel sounds, soft to palpation, non-tender and non-distended; Negative for hepatosplenomegaly Extremity no clubbing, cyanosis or edema Extremity Narrative: Cap refill is good, right hip examined postoperative dressing is intact without any drainage, minimal tenderness surrounding with no ecchymotic areas noted as of yet Neuro oriented x3 and no focal motor deficits Sensorium / Orientation: awake, alert, oriented to person, oriented to place and oriented to time Speech: speech normal Assessment & Plan Assessment/Plan (1) Closed right hip fracture: (2) Abnormal brain CT: (3) Leukocytosis: (4) Abnormal x-ray: PLAN: Plan Acute right femoral neck fracture -Ortho was having difficulty completely identifying the fracture on the x-rays and therefore CT of the hip was performed -CT showed a nondisplaced impacted basicervical fracture of the proximal right femur -Patient's pain is well controlled continue pain medication as ordered -Postop day 1 for hemiarthroplasty -Weightbearing as tolerated -PT/OT pending -Restart Eliquis this morning -Patient cleared by cardiology Abnormal x-ray -Preoperative x-ray shows a lucency in the cortices of the femur per discussion with orthopedic surgery -MRI of this area pending to rule out any other pathology -Patient has no history of malignancy Leukocytosis -Suspect reactive -Up again today but suspect is related to postoperative state -Repeat CBC tomorrow -Continue to monitor Chronic hyponatremia -Serum sodium is at baseline and remained stable -135 this morning -Continue to monitor -Hyponatremia is mild Debility -PT/OT consultation -Suspect patient will need placement after surgery Meningioma of the brain -MRI shows a meningioma measuring 2.2 cm in the inferior aspect of the left tentorium -Outpatient follow-up -Patient asymptomatic Hyperglycemia -A1c was 5.5 -Suspect blood sugar elevations were predominantly reactive with stress -A.m. fasting sugar was 120 Hypertension -Continue home medications as ordered with amlodipine, losartan, metoprolol -As needed hydralazine Hyperlipidemia -Continue statin Hypothyroidism -Continue Synthroid Valvular heart disease -10/08/2020 echo with normal LV systolic function, EF 60%, mildly dilated RV, moderately enlarged LA, severely enlarged RA, mild MVI, moderately severe TVI, mild AV insufficiency, RVSP 37 mm Hg, inability to assess diastolic dysfunctio GERD -Continue home PPI PAF -Continue metoprolol -Restart apixaban today Anxiety/depression -Continue home duloxetine DVT prophylaxis -As per general surgery -SCDs CODE STATUS -Full code as verified on admission emergency department Charges/Coding Visit Charges Inpatient E&M: 12611 Subs Hosp L2
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
[2021-11-15] MEDS: 0.9% Saline Lock 10 ML Syringe IV (22:33)
[2021-11-15] MEDS: Metoprolol Tartrate 50 MG Tablet PO (22:34)
[2021-11-15] MEDS: Pantoprazole Sodium 40 MG Tablet PO (22:34)
[2021-11-15] MEDS: oxyCODONE 5 MG Tablet PO (22:35)
[2021-11-16 03:13] VITALS: BP 132/74; PULSE 77; RESP 20; TEMP 36.7; O2SAT 95
[2021-11-16] MEDS: traMADol 50 MG Tablet PO ×2 (03:17→21:34)
[2021-11-16] MEDS: Acetaminophen 500 MG Tablet 1000 MG PO ×3 (05:51→21:32)
[2021-11-16] MEDS: Levothyroxine 137 MCG Tablet PO (05:51)
[2021-11-16 06:22] LABS: Absolute Neutrophil Count 10.5 X10^3/uL (2.0-7.7); Basophil# 0.06 X10^3/uL; Basophil% 0.5 % (0-1); Eosinophil# 0.18 X10^3/uL; Eosinophils% 1.4 % (0-5); Hematocrit 35.6 % (37-47); Hemoglobin 11.8 g/dL (12.0-15.0); Mean Corp Hgb Conc 33.1 g/dL (32-36); Mean Corpuscular Hgb 31.6 pg (27.0-32.0); Mean Corpuscular Volume 95.4 fL (81-99); Mean Platelet Vol. 9.6 fl (6.2-12.0); Monocyte# 0.94 X10^3/uL; Monocyte% 7.1 % (0-10); NRBC Flagged by Analyzer 0 % (0-5); Neutrophil # 10.48 X10^3/uL (2.7-7.7); Neutrophil % 78.5 % (47-70); Platelet Count 249 K/mm3 (150-450); RBC Distribution Width CV 12.9 % (11.6-14.6); RBC Distribution Width SD 44.8 fl (35.1-43.9); Red Blood Count 3.73 M/mm3 (4.2-5.4); White Blood Count 13.3 K/mm3 (4.4-11.0)
[2021-11-16] MEDS: Losartan Potassium 25 MG Tablet PO (08:41)
[2021-11-16] MEDS: amLODIPine 5 MG Tablet PO (08:41)
[2021-11-16] MEDS: APIXABAN 2.5 MG TABLET PO ×2 (08:41→21:34)
[2021-11-16] MEDS: DULoxetine Hcl 30 MG Capsule PO ×2 (08:41→21:34)
[2021-11-16] MEDS: Senna/Docusate Sodium 1 Tablet 2 TABLET PO ×2 (08:41→21:33)
[2021-11-16] MEDS: Atorvastatin Calcium 20 MG Tablet PO (08:41)
[2021-11-16] MEDS: Ensure Surgery 237 ML LIQUID PO ×2 (08:46→11:36)
[2021-11-16 09:15] VITALS: BP 124/73; PULSE 75; RESP 18; TEMP 36.6; O2SAT 96
--- NOTE | 2021-11-16 11:27 | PCM.PN.ORT ---
Subjective Subjective Patient is doing well. She notes she did well with physical therapy yesterday however this did increase her thigh pain in the evening. She feels better this morning. No chest pain or shortness of breath. Overall she feels she is doing well. Objective Data Objective Data Vital Signs: Vital Signs Temp Pulse Resp BP Pulse Ox O2 Del Method O2 Flow Rate 98 F 75 18 124/73 H 96 Room Air 2 11/16/21 09:15 11/16/21 09:15 11/16/21 09:15 11/16/21 09:15 11/16/21 09:15 11/16/21 09:15 11/14/21 20:41 Oxygen Flow Rate (L/min) 2 Oxygen Delivery Method Room Air Weight: 158 lb 1.143 oz Body Mass Index (BMI) 26.4 Intake & Output: Intake and Output for Last 24 Hours 11/14/21 11/15/21 11/16/21 23:59 23:59 23:59 Intake Total 2561.75 / 2561.75 1791.67 / 1791.67 Output Total 975 / 1175 200 / 200 Balance 1586.75 / 1386.75 1591.67 / 1591.67 Lab / Micro Data Attestation: I reviewed the patient's lab results. Result Diagrams: 11/16/21 06:10 11/15/21 06:36 Labs: Laboratory Results - last 24 hr 11/16/21 06:10: WBC 13.3 H, RBC 3.73 L, Hgb 11.8 L, Hct 35.6 L, MCV 95.4, MCH 31.6, MCHC 33.1, RDW Std Deviation 44.8 H, RDW Coeff of Koko 12.9, Plt Count 249, MPV 9.6, Immature Gran % (Auto) 0.500, Neut % (Auto) 78.5 H, Lymph % (Auto) 12.0 L, [place] % (Auto) 7.1, Eos % (Auto) 1.4, Baso % (Auto) 0.5, Absolute Neuts (auto) 10.5 H, Absolute Lymphs (auto) 1.60, Nucleated RBC % 0 Radiography Diagnostic Testing: Postoperative x-rays were reviewed. I do appreciate the mid femur medial cortical thickening. Preoperative x-rays were also reviewed noting cortical thickening on the lateral anteriorly which was not previously appreciated Physical Exam Const alert, oriented x3 and no apparent distress Extremity Extremity Narrative: Right lower extremity: Dressing is clean dry and intact Sensations intact to light touch saphenous, sural, superficial peroneal, deep peroneal, and tibial distributions Motors intact EHL, DF, PF calves are soft and supple Assessment & Plan Assessment/Plan (1) Abnormal x-ray: PLAN: MRI today with without contrast to rule out significant bony lesion (2) History of right hip hemiarthroplasty: PLAN: 1.? S/P direct anterior right hip hemiarthroplasty POD #2 2.? Continue Pain Medications: Continue with Tylenol and tramadol prescribed by medicine. 3.? DVT Prophylaxis: Patient will resume her Eliquis today for DVT prophylaxis 4.? PT/OT: Weightbearing as tolerated with walker.? Follow direct anterior total hip arthroplasty precautions 5.? H & H: Stable, asymptomatic.? Postoperative anemia secondary to acute blood loss from surgery without any intra operative complications. 6.? Encouraged Incentive Spirometry 7.? Continue postoperative medical management per medicine: Case was discussed with medicine today as well as the MRI of the femur 8.? Right midshaft bony lesion: Upon reviewing pre and postoperative x-rays there was an area of concern over the midshaft of the right femur which did show a bony lesion involving the cortices which was appreciated on both pre and postop x-rays.? There was no documentation of this on radiology report.? Patient denies any history of personal cancer.? I did discuss images with my physician nursing home assistant administrator who rounded yesterday.? At this time we will get an MRI with and without contrast of the right femur for further examination of the bony lesion.? I did discuss this with the patient and her family member. 9.? Disposition: Continue treatment per medicine.? We will follow postoperative treatment for the right hip hemiarthroplasty.? She will be weightbearing as tolerated.? The dressing will remain on for 5 days postoperatively.? She can shower with the dressing.? Once the dressing has been removed she can continue to shower and get incision wet.? Avoid any ointments directly on the incision for 6 weeks postoperatively.? I discussed with the patient postoperative symptoms which could include right thigh swelling as well as soreness which can be present for up to 6 weeks postoperatively.? They did voice understanding agreement.? She will avoid submerging under water for 6 weeks postoperatively.? We will need to see the patient back 2 weeks postoperatively in our office for repeat x-rays and incision check.? We will review the MRI results and make any further recommendations based on imaging findings. [facility] Office: (3) Closed right hip fracture:
--- NOTE | 2021-11-16 12:30 | PN.HOSP_ITS ---
Subjective Subjective She reports she is experiencing a little more pain now. She states she thinks she overdid it yesterday but indicates her pain is controllable with her medications. Indicates her night was a bit restless. Appetite is good. Patient is having bowel movements. Objective Data Objective Data Vital Signs: Vital Signs Temp Pulse Resp BP Pulse Ox O2 Del Method O2 Flow Rate 98 F 75 18 124/73 H 96 Room Air 2 11/16/21 09:15 11/16/21 09:15 11/16/21 09:15 11/16/21 09:15 11/16/21 09:15 11/16/21 09:15 11/14/21 20:41 Oxygen Flow Rate (L/min) 2 Oxygen Delivery Method Room Air Weight: 71.7 kg Body Mass Index (BMI) 26.4 Intake & Output: Intake and Output for Last 24 Hours 11/14/21 11/15/21 11/16/21 23:59 23:59 23:59 Intake Total 2561.75 / 2561.75 1791.67 / 1791.67 Output Total 975 / 1175 200 / 200 Balance 1586.75 / 1386.75 1591.67 / 1591.67 Lab / Micro Data Result Diagrams: 11/16/21 06:10 11/15/21 06:36 Labs: Laboratory Results - last 24 hr 11/16/21 06:10: WBC 13.3 H, RBC 3.73 L, Hgb 11.8 L, Hct 35.6 L, MCV 95.4, MCH 31.6, MCHC 33.1, RDW Std Deviation 44.8 H, RDW Coeff of Koko 12.9, Plt Count 249, MPV 9.6, Immature Gran % (Auto) 0.500, Neut % (Auto) 78.5 H, Lymph % (Auto) 12.0 L, [place] % (Auto) 7.1, Eos % (Auto) 1.4, Baso % (Auto) 0.5, Absolute Neuts (auto) 10.5 H, Absolute Lymphs (auto) 1.60, Nucleated RBC % 0 Physical Exam Const alert, oriented x3, no apparent distress, healthy appearing and well nourished Constitutional Narrative: Elderly white female sitting up in a chair at the bedside, is present, appears comfortable at this time, watching television, nursing at bedside HEENT head/scalp atraumatic, moist oral mucous membranes and oropharynx normal Resp normal respiratory effort, no retractions, no use of accessory muscles and clear to auscultation bilaterally Auscultation: Negative for crackles, rales, rhonchi or wheezes Cardio regular rate, S1 normal heart sound, S2 normal heart sound, no murmurs, no rub, no gallops, no clicks and no JVD Cardio Narrative: Irregular rhythm with rate control GI normal to inspection, nondistended, normoactive bowel sounds, soft to palpation, non-tender and non-distended; Negative for hepatosplenomegaly Extremity no clubbing, cyanosis or edema Extremity Narrative: Cap refill is good, right hip examined postoperative dressing is intact without any drainage, tenderness around the surrounding area with swelling and developing small amount of ecchymosis anterior to the bandage Neuro oriented x3 and no focal motor deficits Sensorium / Orientation: awake, alert, oriented to person, oriented to place and oriented to time Speech: speech normal Assessment & Plan Assessment/Plan (1) Closed right hip fracture: (2) Abnormal brain CT: (3) Leukocytosis: (4) Abnormal x-ray: PLAN: Plan Acute right femoral neck fracture -Ortho was having difficulty completely identifying the fracture on the x-rays and therefore CT of the hip was performed -CT showed a nondisplaced impacted basicervical fracture of the proximal right femur -Patient's pain is well controlled continue pain medication as ordered -Postop day 1 for hemiarthroplasty -Weightbearing as tolerated -PT/OT following--> we will have to monitor to see how she does but it looks like she may need placement upon discharge and this process will need to be initiated tomorrow -As long as MRI shows no significant issues patient should be stable for discharge medically and process should be initiated tomorrow Abnormal x-ray -Preoperative x-ray shows a lucency in the cortices of the femur per discussion with orthopedic surgery -MRI of this area pending to rule out any other pathology -Patient has no history of malignancy Leukocytosis -Suspect reactive -Trending down -Continue to monitor Chronic hyponatremia -Serum sodium is at baseline and remained stable -Continue to monitor -Hyponatremia is mild Debility -PT/OT consultation -Suspect patient will need placement after surgery Meningioma of the brain -MRI shows a meningioma measuring 2.2 cm in the inferior aspect of the left tent orium -Outpatient follow-up -Patient asymptomatic Hyperglycemia -A1c was 5.5 -Suspect blood sugar elevations were predominantly reactive with stress Hypertension -Continue home medications as ordered with amlodipine, losartan, metoprolol -As needed hydralazine Hyperlipidemia -Continue statin Hypothyroidism -Continue Synthroid Valvular heart disease -10/08/2020 echo with normal LV systolic function, EF 60%, mildly dilated RV, moderately enlarged LA, severely enlarged RA, mild MVI, moderately severe TVI, mild AV insufficiency, RVSP 37 mm Hg, inability to assess diastolic dysfunctio GERD -Continue home PPI PAF -Continue metoprolol -Restart apixaban today Anxiety/depression -Continue home duloxetine DVT prophylaxis -As per general surgery -SCDs CODE STATUS -Full code as verified on admission emergency department Charges/Coding Visit Charges Inpatient E&M: 94431 Subs Hosp L2
[2021-11-16 14:09] VITALS: BP 112/62; PULSE 83; RESP 18; TEMP 37.3; O2SAT 98
[2021-11-16 21:27] VITALS: BP 128/81; PULSE 82; RESP 20; TEMP 36.6; O2SAT 95
[2021-11-16] MEDS: Pantoprazole Sodium 40 MG Tablet PO (21:33)
[2021-11-16 21:34] VITALS: BP 128/81; PULSE 82
[2021-11-16] MEDS: Metoprolol Tartrate 50 MG Tablet PO (21:34)
[2021-11-16] MEDS: oxyCODONE 5 MG Tablet PO (23:50)
[2021-11-17 05:39] VITALS: BP 151/81; PULSE 72; RESP 18; TEMP 37.3; O2SAT 96
[2021-11-17] MEDS: Acetaminophen 500 MG Tablet 1000 MG PO ×3 (05:42→21:00)
[2021-11-17] MEDS: Levothyroxine 137 MCG Tablet PO (05:42)
[2021-11-17] MEDS: Ensure Surgery 237 ML LIQUID PO (08:08)
[2021-11-17 08:13] VITALS: BP 138/79; PULSE 74; RESP 18; TEMP 36.7; O2SAT 96
--- NOTE | 2021-11-17 09:00 | MRI_ITS ---
EXAM: MR RIGHT LOWER EXTREMITY WITHOUT AND WITH INTRAVENOUS CONTRAST, FEMUR CLINICAL INDICATION: Lesion mid shaft right femur -- Cortical lesion right midshaft femur appreciated on x-rays TECHNIQUE: Multiplanar and multisequence MR images of the right femur without and with intravenous contrast. This report was created using [employer] report [employer] technology. CONTRAST: IV 14 CC DOTAREM COMPARISON: None. FINDINGS: BONES/JOINTS: Along the mid medial shaft of the right femur, there is a small cortical exostosis or possible area of an old healed fracture. This measures 15 x 9 mm. Se 10 IM: 11. Right hip prosthesis in place. No abnormal bone marrow signal. No joint effusion. MUSCLES: Unremarkable. No edema or myositis. OTHER SOFT TISSUES: There is diffuse edema over the soft tissue and muscle on the right consistent for recent right hip manipulation and surgery. MRI/Lower Ext No Joint W/WO Cont IMPRESSION: 1. There is diffuse edema over the soft tissue and muscle on the right consistent for recent right hip manipulation and surgery. 2. Along the mid medial shaft of the right femur, there is a small cortical exostosis or possible area of an old healed fracture. This measures 15 x 9 mm. Se 10 IM: 11. Electronically Signed: Jean Farrell MD at 16:01 EDT ,
--- NOTE | 2021-11-17 09:13 | CASEMGMT ---
Addendum entered by Mercy Baumann 11/17/21 09:19: Leanna from the [facility] will be starting pre-cert for patient today. 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 Mercy De Oliveira/shemar Jewelry Estimator sent over current PT/OT notes. Mercy Baumann Discharge [employer]seed Meat Presser
--- NOTE | 2021-11-17 09:19 | CASEMGMT ---
Social Work Phone call to pt dgt Graciela to discuss discharge plan. Graciela requesting pt go to TCU. GREGG informed no beds available. Second choice is [facility], GREGG informed they are not in network with insurance. Graciela then stating it is ok to stick with original plan to go to [facility] who has already accepted pt. Precert to be started at the [place] today. Plan: [place], pending estephaniaert BRENDAN Ramos
[2021-11-17] MEDS: DULoxetine Hcl 30 MG Capsule PO ×2 (09:36→21:01)
[2021-11-17] MEDS: Atorvastatin Calcium 20 MG Tablet PO (09:36)
[2021-11-17] MEDS: APIXABAN 2.5 MG TABLET PO ×2 (09:36→21:01)
[2021-11-17] MEDS: Losartan Potassium 25 MG Tablet PO (09:36)
[2021-11-17] MEDS: amLODIPine 5 MG Tablet PO (09:36)
[2021-11-17] MEDS: Senna/Docusate Sodium 1 Tablet 2 TABLET PO ×2 (09:36→21:02)
[2021-11-17] MEDS: Mag Hydrox/Al Hydrox/Simeth 30 ML UDC PO (11:31)
[2021-11-17] MEDS: traMADol 50 MG Tablet PO (11:31)
--- NOTE | 2021-11-17 12:49 | PCM.PN.HOSP ---
Subjective Subjective Follow-up on postop medical management/acute right femoral neck fracture: Patient was seen and examined. She is going for MRI of the hip. Her pain otherwise is fairly controlled. Denied any fever or chills. Objective Data Objective Data Vital Signs: Vital Signs Temp Pulse Resp BP Pulse Ox O2 Del Method O2 Flow Rate 98.1 F 74 18 138/79 H 96 Room Air 2 11/17/21 08:13 11/17/21 08:13 11/17/21 08:13 11/17/21 08:13 11/17/21 08:13 11/17/21 09:53 11/14/21 20:41 Oxygen Flow Rate (L/min) 2 Oxygen Delivery Method Room Air Weight: 71.7 kg Body Mass Index (BMI) 26.4 Intake & Output: Intake and Output for Last 24 Hours 11/15/21 11/16/21 11/17/21 23:59 23:59 23:59 Intake Total 1791.67 / 1791.67 400 / 400 750 / 750 Output Total 200 / 200 Balance 1591.67 / 1591.67 400 / 400 750 / 750 Lab / Micro Data Result Diagrams: 11/16/21 06:10 11/15/21 06:36 Physical Exam Narrative Physical exam: General: Alert, Oriented x3, Cooperative, No apparent distress HEENT: Atraumatic Oral: Moist Mucosa Neck: Supple Lungs: Clear to auscultation Cardiovascular: HS I+II, regular, no murmurs Abdomen: Bowel Sounds Present, Soft, Non Tender Extremities: No edema, dressing over the right hip Skin: No rashes, No breakdown Neurological: Grossly intact Psych/Mental Status: Appropriate Assessment & Plan Assessment/Plan (1) Closed right hip fracture: (2) Abnormal brain CT: (3) Leukocytosis: (4) Abnormal x-ray: PLAN: Plan 1. POD#2 status post direct anterior partial hip replacement for acute right femoral neck fracture Pain is fairly controlled. Continue with PT/OT evaluation Pre and postoperative x-rays showed a lucency in the course of the femur, MRI of the hip pending 2. Hyponatremia, chronic, sodium is at the baseline, 135 3. Leukocytosis, reactive 4. Debility, related to #1, PT and OT to evaluate and treat 5. Meningioma, seen on MRI of the brain on 10/31/2021, measuring 2.2 cm, outpatient follow-up 6. Hypertension, controlled, continue amlodipine, losartan and metoprolol 7. Rest of her chronic medical conditions including hyperlipidemia/hypothyroidism/valvular heart disease/GERD/paroxysmal atrial fibrillation/anxiety/depression, remained stable for now Continue Synthroid, statin, metoprolol, apixaban, Cymbalta 8. DVT PPx - on Eliquis Charges/Coding Visit Charges Inpatient E&M: 63558 Subs Hosp L2
[2021-11-17 15:47] VITALS: BP 139/84; PULSE 82; RESP 18; TEMP 37; O2SAT 96
--- NOTE | 2021-11-17 17:08 | PN.ORTHO_ITS ---
Objective Data Objective Data Vital Signs: Vital Signs Temp Pulse Resp BP Pulse Ox O2 Del Method O2 Flow Rate 98.6 F 82 18 139/84 H 96 Room Air 2 11/17/21 15:47 11/17/21 15:47 11/17/21 15:47 11/17/21 15:47 11/17/21 15:47 11/17/21 16:15 11/14/21 20:41 Oxygen Flow Rate (L/min) 2 Oxygen Delivery Method Room Air Weight: 158 lb 1.143 oz Body Mass Index (BMI) 26.4 Intake & Output: Intake and Output for Last 24 Hours 11/15/21 11/16/21 11/17/21 23:59 23:59 23:59 Intake Total 1791.67 / 1791.67 400 / 400 750 / 750 Output Total 200 / 200 Balance 1591.67 / 1591.67 400 / 400 750 / 750 Lab / Micro Data Result Diagrams: 11/16/21 06:10 11/15/21 06:36 Radiography Diagnostic Testing: Radiology Impression Lower Extremity MRI 11/17/21 09:00 IMPRESSION: 1. There is diffuse edema over the soft tissue and muscle on the right consistent for recent right hip manipulation and surgery. 2. Along the mid medial shaft of the right femur, there is a small cortical exostosis or possible area of an old healed fracture. This measures 15 x 9 mm. Se 10 IM: 11. Electronically Signed: Jean Farrell MD at 16:01 EDT Reading Location ID and State: [facility] [place] / [place] , Service support , Assessment & Plan Assessment/Plan (1) History of right hip hemiarthroplasty: (2) Abnormal x-ray: PLAN: MRI consistent with benign exostosis or healed fracture follow up i office with serial rediographs. OK for d/c from ortho std pt. SAW
[2021-11-17 20:48] VITALS: BP 148/76; PULSE 80; RESP 18; TEMP 36.7; O2SAT 96
[2021-11-17] MEDS: Pantoprazole Sodium 40 MG Tablet PO (21:00)
[2021-11-17 21:01] VITALS: BP 148/76; PULSE 80
[2021-11-17] MEDS: Metoprolol Tartrate 50 MG Tablet PO (21:01)
[2021-11-17] MEDS: 0.9% Saline Lock 10 ML Syringe IV (21:02)
[2021-11-18 00:44] VITALS: BP 139/85; PULSE 76; RESP 18; TEMP 36.7; O2SAT 96
[2021-11-18] MEDS: traMADol 50 MG Tablet PO ×2 (00:46→14:46)
[2021-11-18 06:14] VITALS: BP 134/70; PULSE 65; RESP 18; TEMP 36.6; O2SAT 93
[2021-11-18] MEDS: Acetaminophen 500 MG Tablet 1000 MG PO ×2 (06:24→13:37)
[2021-11-18] MEDS: Levothyroxine 137 MCG Tablet PO (06:24)
[2021-11-18 08:44] VITALS: BP 128/83; PULSE 80; RESP 16; TEMP 37.1; O2SAT 94
[2021-11-18] MEDS: DULoxetine Hcl 30 MG Capsule PO (08:54)
[2021-11-18] MEDS: Atorvastatin Calcium 20 MG Tablet PO (08:54)
[2021-11-18] MEDS: Senna/Docusate Sodium 1 Tablet 2 TABLET PO (08:55)
[2021-11-18] MEDS: Losartan Potassium 25 MG Tablet PO (08:55)
[2021-11-18] MEDS: amLODIPine 5 MG Tablet PO (08:55)
[2021-11-18] MEDS: APIXABAN 2.5 MG TABLET PO (08:55)
[2021-11-18 09:20] VITALS: O2SAT 95
--- NOTE | 2021-11-18 12:11 | PCM.PN.HOSP ---
Subjective Subjective Follow-up on postop medical management/acute right femoral neck fracture: Patient was seen and examined. No acute events overnight. Her pain is fairly controlled. MRI of the hip showed small cortical exostosis along the mid medial shaft of the right femur. No acute management of this recommended by orthopedics. Follow-up recommended with serial x-rays. Objective Data Objective Data Vital Signs: Vital Signs Temp Pulse Resp BP Pulse Ox O2 Del Method O2 Flow Rate 98.7 F 80 16 128/83 H 95 Room Air 2 11/18/21 08:44 11/18/21 08:44 11/18/21 08:44 11/18/21 08:44 11/18/21 09:20 11/18/21 08:44 11/14/21 20:41 Oxygen Flow Rate (L/min) 2 Oxygen Delivery Method Room Air Weight: 75 kg Body Mass Index (BMI) 26.4 Intake & Output: Intake and Output for Last 24 Hours 11/16/21 11/17/21 11/18/21 23:59 23:59 23:59 Intake Total 400 / 400 750 / 750 Balance 400 / 400 750 / 750 Lab / Micro Data Result Diagrams: 11/16/21 06:10 11/15/21 06:36 Radiography Diagnostic Testing: Radiology Impression Lower Extremity MRI 11/17/21 09:00 IMPRESSION: 1. There is diffuse edema over the soft tissue and muscle on the right consistent for recent right hip manipulation and surgery. 2. Along the mid medial shaft of the right femur, there is a small cortical exostosis or possible area of an old healed fracture. This measures 15 x 9 mm. Se 10 IM: 11. Electronically Signed: Jean Farrell MD at 16:01 EDT Reading Location ID and State: [facility] / [place] , Service support , Physical Exam Narrative Physical exam: General: Alert, Oriented x3, Cooperative, No apparent distress HEENT: Atraumatic Oral: Moist Mucosa Neck: Supple Lungs: Clear to auscultation Cardiovascular: HS I+II, regular, no murmurs Abdomen: Bowel Sounds Present, Soft, Non Tender Extremities: No edema, dressing over the right hip Skin: No rashes, No breakdown Neurological: Grossly intact Psych/Mental Status: Appropriate Assessment & Plan Assessment/Plan (1) Closed right hip fracture: (2) Abnormal brain CT: (3) Leukocytosis: (4) Abnormal x-ray: PLAN: Plan 1. POD#3 status post direct anterior partial hip replacement for acute right femoral neck fracture Pain is fairly controlled. Continue with PT/OT evaluation Pre and postoperative x-rays showed a lucency in the course of the femur, MRI of the hip shows exostosis along the mid femoral shaft cortices. Orthopedics recommends follow-up with imaging 2. Hyponatremia, chronic, sodium is at the baseline 3. Leukocytosis, reactive 4. Debility, related to #1, PT and OT to evaluate and treat 5. Meningioma, seen on MRI of the brain on 10/31/2021, measuring 2.2 cm, outpatient follow-up 6. Hypertension, controlled, continue amlodipine, losartan and metoprolol 7. Rest of her chronic medical conditions including hyperlipidemia/hypothyroidism/valvular heart disease/GERD/paroxysmal atrial fibrillation/anxiety/depression, remained stable for now Continue Synthroid, statin, metoprolol, apixaban, Cymbalta 8. DVT PPx - on Eliquis Awaiting discharge to SNF Charges/Coding Visit Charges Inpatient E&M: 24535 Subs Hosp L2
--- NOTE | 2021-11-18 12:42 | CASEMGMT ---
Discharge User Support Analyst Leanna reached out. Pre-cert has been obtained. [facility]. GREGG Naqvi notified. [facility]cy Baumann Discharge User Support Analyst
--- NOTE | 2021-11-18 12:48 | CASEMGMT ---
Social Work Precert has been obtained for pt to go to [facility]. Physician updated and pt is ready for discharge today. SW met with pt and informed that she will discharge to the [facility] today. Pt is agreeable. SW will updated pt daughter Graciela of discharge plan. Plan: Sushil, skilled level of care BRENDAN José
[2021-11-18 13:01] VITALS: BP 121/77; PULSE 80; RESP 18; TEMP 36.9; O2SAT 96
--- NOTE | 2021-11-18 13:06 | TREXTCAR_ITS ---
Diet Diet Order/Speech Therapy: 11/14/21 20:47 Diet: Regular - General Is pt able to select menu?: No Routine Orders/Code Status Suppository Type: Dulcolax 10mg Suppository Frequency: Daily PRN Keep PO Greater than or Equal to (%): 94 Routine Lab Work: CBC (within 3 days) and - (CMP within 3 days) Code Status: Full Code Wound(s) RIGHT ANTERIOR HIP: Wound Type: Surgical Incision Therapies Weight Bearing: Weight bearing as tolerated Physical Therapy: Eval and Treat Occupational Therapy: Eval and Treat Problem/Diagnosis (1) Closed right hip fracture: Status: Acute Code(s): S72.001A - Fracture of unspecified part of neck of right femur, initial encounter for closed fracture (2) Abnormal brain CT: Status: Acute Code(s): R90.89 - Other abnormal findings on diagnostic imaging of central nervous system (3) Leukocytosis: Status: Resolved Code(s): D72.829 - Elevated white blood cell count, unspecified (4) Abnormal x-ray: Status: Acute Code(s): R93.89 - Abnormal findings on diagnostic imaging of other specified body structures Allergies/Procedures Done in Hospital Allergies No Known Allergies Allergy (Verified 11/06/21 14:09) Procedures: - (Right direct anterior partial hip replacement, 11/14/21) Type of Care/Length of Stay Estimated LOS: Convalescent Care Less Than 30 days Type of Care Needed: Skilled Rehab Potential: Good Prognosis: Good Additional Orders/Day of Discharge Additional Orders: Orthopedics recommendations: She will be weightbearing as tolerated. The dressing will remain on for 5 days postoperatively. She can shower with the dressing. Once the dressing has been removed she can continue to shower and get incision wet. Avoid any ointments directly on the incision for 6 weeks postoperatively. She will avoid submerging under water for 6 weeks postoperatively. We will need to see the patient back 2 weeks postoperatively in our office for repeat x-rays and incision check. Day of Discharge: 11/18/21 Follow Up Care Please Follow Up With: Long Tay MD When: in 2 weeks Discharge Plan Admission Admit Date/Time: 11/13/21 05:33 Primary Reason for Your Visit: Right hip fracture Attending Provider: May Gotti Primary Care Provider: Jamir Guardado Consulting Providers: Alejandra Shahid ; Chacho Aragon ; Long Tay ; Nelida Trejo Discharge Orders/Prescriptions Prescriptions: New sennosides-docusate sodium [Stool Softener-Stimulant Laxat] 8.6-50 mg Tablet 2 tab PO BID Qty: 0 0RF acetaminophen 500 mg Tablet 1,000 mg PO Q8 Qty: 0 0RF Ensure Surgery 0.08-1.4 gram-kcal/mL Liquid 237 ml PO TIDCM Qty: 0 0RF Continued ascorbic acid (vitamin C) 500 mg tablet 500 mg PO QDAY mecobalamin (vitamin B12) 1,000 mcg tablet,disintegrating 1,000 mcg sublingual Q OTHER DAY Rx Instructions: place tablet under tongue and allow to dissolve for at least30 secs before swallowing albuterol sulfate [Ventolin HFA] 90 mcg/actuation HFA aerosol inhaler 2 puff INHALATION Q6H PRN (Reason: shortness of breath or wheezing) Qty: 25.5 1RF Rx Instructions: administer with spacer metoprolol tartrate 50 mg tablet 50 mg PO QHS Rx Instructions: at bedtime apixaban 2.5 mg tablet 2.5 mg PO BID Qty: 180 3RF capsaicin 0.025 % cream 1 applic topical TID PRN (Reason: foot pain) Qty: 60 2RF Rx Instructions: do not wash area for at least 30 min after application multivitamin 1 EACH tablet 1 tab PO DAILY (DME) inhalational spacing device Spacer See Rx Instructions .ROUTE .MEDSUPPLY Qty: 1 0RF Rx Instructions: As directed atorvastatin 20 mg tablet 20 mg PO QDAY Qty: 90 3RF amlodipine 5 mg tablet 5 mg PO QDAY Qty: 90 3RF losartan 25 mg tablet 25 mg PO QDAY Qty: 90 3RF omeprazole 40 mg capsule,delayed release(DR/EC) 40 mg PO DAILY Qty: 90 1RF levothyroxine 137 mcg tablet 137 mcg PO QDAY Qty: 90 1RF duloxetine 30 mg capsule,delayed release(DR/EC) 30 mg PO BID Qty: 180 6RF Discontinued potassium gluconate 500 mg (83 mg) tablet 500 mg PO DAILY Referrals / Follow Up: Jamir Guardado DO [Primary Care Provider] - See Referral Note (within 2 weeks of discharge from SNF) Disposition Disposition (needs filled in before D/C Order can be placed): [facility]
--- NOTE | 2021-11-18 13:08 | CASEMGMT ---
SW completed Healthcare Power of Photogrammetric Engineer with patient. Copies were made and given to patient along with original. SW also placed a copy in patient's chart. Jacki GARCIA
--- NOTE | 2021-11-18 13:16 | PCM.DC.SUM ---
Providers Date of Admission: 11/13/21 Date of Discharge: 11/18/21 Primary Care Physician: Dr. Jamir Guardado, DO Consultations 11/13/21 07:59 Consult: Cardiology Routine Consulting Provider: Chacho Aragon Reason for Consult: preop clearance-EKG changes EMERGENT Consult: No MD Notified: Yes Date Notified: 11/13/21 Time Notified: 06:52 Method of Notification: Text Consult: Orthopedics Routine Consulting Provider: Long Tay Reason for Consult: Fall, R hip fracture EMERGENT Consult: No Notified: Yes Date Notified: 11/13/21 Time Notified: 05:36 Method of Notification: ED Physician Initiated Reason For Visit: R HIP FRACTURE, FALL Diagnosis Discharge Diagnosis (1) Closed right hip fracture: Status: Acute Code(s): S72.001A - Fracture of unspecified part of neck of right femur, initial encounter for closed fracture (2) Abnormal brain CT: Status: Acute Code(s): R90.89 - Other abnormal findings on diagnostic imaging of central nervous system (3) Leukocytosis: Status: Resolved Code(s): D72.829 - Elevated white blood cell count, unspecified (4) Abnormal x-ray: Status: Acute Code(s): R93.89 - Abnormal findings on diagnostic imaging of other specified body structures Medications at Discharge Home Medications ascorbic acid (vitamin C) 500 mg tablet 500 mg PO QDAY supplement 09/14/17 multivitamin 1 tab PO DAILY supplement 06/29/18 inhalational spacing device #1 ea 11/07/20 atorvastatin 20 mg tablet 20 mg PO QDAY #90 tabs 04/07/21 amlodipine 5 mg tablet 5 mg PO QDAY #90 tabs 06/05/21 losartan 25 mg tablet 25 mg PO QDAY #90 tabs 07/07/21 levothyroxine 137 mcg tablet 137 mcg PO QDAY #90 tabs 07/09/21 omeprazole 40 mg capsule,delayed release 40 mg PO DAILY #90 caps 07/09/21 albuterol sulfate 90 mcg/actuation aerosol inhaler (Ventolin HFA) 2 puff inhalation Q6H PRN shortness of breath or wheezing #25.5 grams 07/23/21 duloxetine 30 mg capsule,delayed release 30 mg PO BID #180 caps 09/17/21 apixaban 2.5 mg tablet 2.5 mg PO BID #180 tabs 11/06/21 mecobalamin (vitamin B12) 1,000 mcg disintegrating tablet,sublingual 1,000 mcg sublingual Q OTHER DAY supplement 11/06/21 metoprolol tartrate 50 mg tablet 50 mg PO QHS heart/BP 11/06/21 capsaicin 0.025 % topical cream 1 applic topical TID PRN foot pain #60 grams 11/11/21 acetaminophen 500 mg tablet 1,000 mg PO Q8 #0 tabs 11/18/21 nut.tx.comp. immune systm,reg 0.08 gram-1.4 kcal/mL oral liquid (Ensure Surgery) 237 ml PO TIDCM #0 mL 11/18/21 sennosides 8.6 mg-docusate sodium 50 mg tablet (Stool Softener-Stimulant Laxative) 2 tab PO BID #0 tabs 11/18/21 Hospital Course Operations total hip replacement (right, 11/14/21) Procedures None Summary of Care Provided Minutes Spent on Discharge: 35 Hospital Course: 1. POD#3 status post direct anterior partial hip replacement for acute right femoral neck fracture Pain is fairly controlled. Continue with PT/OT evaluation Pre and postoperative x-rays showed a lucency in the course of the femur, MRI of the hip shows exostosis along the mid femoral shaft cortices. Orthopedics recommends follow-up with imaging 2. Hyponatremia, chronic, sodium is at the baseline 3. Leukocytosis, reactive 4. Debility, related to #1, PT and OT to evaluate and treat 5. Meningioma, seen on MRI of the brain on 10/31/2021, measuring 2.2 cm, outpatient follow-up 6. Hypertension, controlled, continue amlodipine, losartan and metoprolol 7. Rest of her chronic medical conditions including hyperlipidemia/hypothyroidism/valvular heart disease/GERD/paroxysmal atrial fibrillation/anxiety/depression, remained stable for now Continue Synthroid, statin, metoprolol, apixaban, Cymbalta 8. DVT PPx - on Eliquis Awaiting discharge to SNF Physical Exam Narrative See progress note of the day Weight / BMI Weight Weight: 75 kg Body Mass Index (BMI) 26.4 ABG / Lab / Microbiology Data Result Diagrams: 11/16/21 06:10 11/15/21 06:36 Radiography Diagnostic Testing: Radiology Impression Lower Extremity MRI 11/17/21 09:00 IMPRESSION: 1. There is diffuse edema over the soft tissue and muscle on the right consistent for recent right hip manipulation and surgery. 2. Along the mid medial shaft of the right femur, there is a small cortical exostosis or possible area of an old healed fracture. This measures 15 x 9 mm. Se 10 IM: 11. Electronically Signed: Jean Farrell MD at 16:01 EDT Reading Location ID and State: [facility] / [place] , Service support , D/C Instructions Discharge Diet: Low fat / Low cholesterol and 2000 mg Sodium Diet Discharge Activity: Return to Normal Activity Please Follow Up With: Long Tay MD Meaningful Use Info Meaningful Use Diagnoses (Choose all that apply): None applicable Discharge Plan Admission Admit Date/Time: 11/13/21 05:33 Primary Reason for Your Visit: Right hip fracture Attending Provider: May Gotti Primary Care Provider: Jamir Guardado Consulting Providers: Alejandra Shahid ; Chacho Aragon ; Long Tay ; Nelida Trejo Discharge Orders/Prescriptions Prescriptions: New sennosides-docusate sodium [Stool Softener-Stimulant Laxat] 8.6-50 mg Tablet 2 tab PO BID Qty: 0 0RF acetaminophen 500 mg Tablet 1,000 mg PO Q8 Qty: 0 0RF Ensure Surgery 0.08-1.4 gram-kcal/mL Liquid 237 ml PO TIDCM Qty: 0 0RF Continued ascorbic acid (vitamin C) 500 mg tablet 500 mg PO QDAY mecobalamin (vitamin B12) 1,000 mcg tablet,disintegrating 1,000 mcg sublingual Q OTHER DAY Rx Instructions: place tablet under tongue and allow to dissolve for at least30 secs before swallowing albuterol sulfate [Ventolin HFA] 90 mcg/actuation HFA aerosol inhaler 2 puff INHALATION Q6H PRN (Reason: shortness of breath or wheezing) Qty: 25.5 1RF Rx Instructions: administer with spacer metoprolol tartrate 50 mg tablet 50 mg PO QHS Rx Instructions: at bedtime apixaban 2.5 mg tablet 2.5 mg PO BID Qty: 180 3RF capsaicin 0.025 % cream 1 applic topical TID PRN (Reason: foot pain) Qty: 60 2RF Rx Instructions: do not wash area for at least 30 min after application multivitamin 1 EACH tablet 1 tab PO DAILY (DME) inhalational spacing device Spacer See Rx Instructions .ROUTE .MEDSUPPLY Qty: 1 0RF Rx Instructions: As directed atorvastatin 20 mg tablet 20 mg PO QDAY Qty: 90 3RF amlodipine 5 mg tablet 5 mg PO QDAY Qty: 90 3RF losartan 25 mg tablet 25 mg PO QDAY Qty: 90 3RF omeprazole 40 mg capsule,delayed release(DR/EC) 40 mg PO DAILY Qty: 90 1RF levothyroxine 137 mcg tablet 137 mcg PO QDAY Qty: 90 1RF duloxetine 30 mg capsule,delayed release(DR/EC) 30 mg PO BID Qty: 180 6RF Discontinued potassium gluconate 500 mg (83 mg) tablet 500 mg PO DAILY Referrals / Follow Up: Jamir Guardado DO [Primary Care Provider] - See Referral Note (within 2 weeks of discharge from SNF) Long Tay MD [STAFF PHYSICIAN] - Within 2 Weeks (2 weeks from surgery) Disposition Disposition (needs filled in before D/C Order can be placed): Detention Facility
[2021-11-18] MEDS: Mag Hydrox/Al Hydrox/Simeth 30 ML UDC PO (13:36)
--- NOTE | 2021-11-18 14:32 | CASEMGMT ---
Discharge Instrument Specialist Mercy De Oliveira/shemar Ramos faxed over d/c orders to Leanna at the [place]. Patient daughter Graciela was in room with patient. Both patient and daughter were notified. [facility] has a tow picker time for 1500. RN notified. [facility] Baumann Discharge Instrument Specialist
== END 2021-11-18 14:45 | DRG 522 ==
LOC: ED 06:05 → MS3 06:41
PROVIDERS: Anesthesiology; Internal Medicine; Specialist; Admitting Provider Family Medicine; Emergency Provider Student in an Organized Health Care Education/Training Program; PCP Family Medicine; Visit Provider Internal Medicine
PROC: 0SR90JZ Replacement of Right Hip Joint with Synthetic Substitute, Open Approach (ICD-10-PCS; CPT 27284; principal; 2021-11-14 15:35)
DX: S72.001A Fracture of unspecified part of neck of right femur, initial encounter for closed fracture (principal); D62 Acute posthemorrhagic anemia; E87.1 Hypo-osmolality and hyponatremia; I48.0 Paroxysmal atrial fibrillation; G62.9 Polyneuropathy, unspecified; D32.0 Benign neoplasm of cerebral meninges; E03.9 Hypothyroidism, unspecified; I25.10 Atherosclerotic heart disease of native coronary artery without angina pectoris; E78.5 Hyperlipidemia, unspecified; I10 Essential (primary) hypertension; I35.1 Nonrheumatic aortic (valve) insufficiency; I34.0 Nonrheumatic mitral (valve) insufficiency; W19.XXXA Unspecified fall, initial encounter; I45.10 Unspecified right bundle-branch block; K21.9 Gastro-esophageal reflux disease without esophagitis; F41.9 Anxiety disorder, unspecified; E87.6 Hypokalemia; E66.9 Obesity, unspecified; Z79.01 Long term (current) use of anticoagulants; Z79.899 Other long term (current) drug therapy; R53.81 Other malaise; F32.A Depression, unspecified; R73.9 Hyperglycemia, unspecified; Z68.26 Body mass index [BMI] 26.0-26.9, adult
CPT/HCPCS: 36415; 51702; 70450; 70553; 71045; 73501; 73502; 73700; 73720; 76000; 80053; 81001; 82607; 83036; 84439; 84443; 84484; 85025; 86850; 86900; 86901; 87426; 88307; 88311; 93005; 97110; 97116; 97162; 97166; 97530; 97535; 99251; 99285; A9575; C1776; J7030; J7050; A4216; G0463; J2405

== ENCOUNTER → 2021-12-08 | Outpatient (CLI) | payer MEDICARE, SELFPAY ==
--- NOTE | 2021-12-08 15:08 | VDLE_ITS ---
Reason For Study: Pain RIGHT LEFT GSV is normal. CFV is compressible, spontaneous, competent, CFV is compressible, spontaneous, competent and demonstrates pulsatile venous flow. and demonstrates pulsatile venous flow. FV is compressible, spontaneous, competent and demonstrates pulsatile venous flow. POP V is compressible, spontaneous, competent and demonstrates pulsatile venous flow. T/P Trunk is compressible. PTV is compressible. RT PerV is compressible. Procedure This is a venous duplex using B-mode, color flow and spectral Doppler. Exam performed in department. A preliminary report was called and/or faxed to [facility]. VL/Venous Duplex US, Unilateral Interpretation Summary There is no evidence of right lower extremity deep vein thrombosis. Right great saphenous vein appears patent and compressible segmentally. Patent and compressible left commo n femoral vein Pulsatile venous flow patterns are noted bilaterally suspicious for proximal ve nous hypertension or obstruction. Clinical correlation would be appropriate. Ordering Physician: Olayinka Paniagua Referring Physician: Johnathan Guardado M.D. Performed By: Nikia Lopez RVT
== END | disposition home or self-care (01) ==
LOC: CVS 15:05
PROVIDERS: PCP Family Medicine; Referring Provider Physician Assistant Surgical; Visit Provider Physician Assistant Surgical
DX: M79.661 Pain in right lower leg (principal)
CPT/HCPCS: 93971

== ENCOUNTER → 2022-01-08 | Outpatient (CLI) | payer MEDICARE, SELFPAY ==
[2022-01-08 13:59] LABS: Vitamin B12 1946 pg/mL (211-911)
[2022-01-08 14:35] LABS: Rheumatoid Factor < 10.0 IU/mL (<15)
[2022-01-13 17:07] LABS: RNP Ab <0.2 AI (0.0-0.9); Smith Ab <0.2 AI (0.0-0.9)
[2022-01-14 12:04] LABS: Methylmalonic Acid Bld 153 nmol/L (0-378)
== END | disposition home or self-care (01) ==
LOC: LAB 13:05
PROVIDERS: PCP Family Medicine; Visit Provider Psychiatry & Neurology Neurology
DX: G62.9 Polyneuropathy, unspecified (principal)
CPT/HCPCS: 36415; 82525; 82607; 82746; 82784; 83921; 84165; 84207; 84425; 86235; 86334; 86431

== ENCOUNTER 2022-01-17 14:43 | Emergency (ER) | payer MEDICARE, SELFPAY ==
[2022-01-17 14:44] VITALS: BP 159/90; PULSE 96; RESP 16; TEMP 36.8; O2SAT 96; BMI 26.6
[2022-01-17] MEDS: oxyCODONE 5 MG Tablet PO (15:40)
--- NOTE | 2022-01-17 15:40 | ED.VIS.LOWEX ---
HPI History of Present Illness Chief Complaint: Lower Extremity Injury Informant: patient and family Narrative Narrative: Patient is complaining of left hip pain. She points to the inguinal area as the area of pain. It hurts most to lift her leg up. She states this is not been going on for about 3 to 3-1/2 weeks. Today was worse than other days. No acute fall or trauma. But she did have her other right hip replaced on 14 November. She has been going to therapy and increasing her activity. No fevers chills. She is on Eliquis but no acute trauma to the hip. No recent infections. She really does not have pain when laying down. But if she bears weight or lifts her leg up it hurts quite a bit. Even lying in bed she cannot lift her leg up off the bed easily. [facility] Medical History (Updated 01/17/22 @ 16:[address] Newton Zamarripa MD) A-fib Abnormal electrocardiogram Abnormal pulmonary function test Atherosclerotic heart disease of [place] coronary artery without angina pectoris Chest discomfort Dyspnea (~01/30/21) Essential (primary) hypertension Hernia HLD (hyperlipidemia) Hyponatremia Hypothyroidism Mitral insufficiency, acute Neuropathy Non-rheumatic tricuspid valve insufficiency Nonrheumatic aortic (valve) insufficiency Nonrheumatic mitral (valve) insufficiency PAF (paroxysmal atrial fibrillation) Peripheral neuropathy Pure hypercholesterolemia Home Medications ascorbic acid (vitamin C) 500 mg tablet 500 mg PO QDAY supplement 09/14/17 [History Last Taken Unknown] multivitamin 1 tab PO DAILY supplement 06/29/18 [History Last Taken Unknown] inhalational spacing device #1 ea 11/07/20 [Rx Last Taken Unknown] atorvastatin 20 mg tablet 20 mg PO QDAY #90 tabs 04/07/21 [Rx Last Taken Unknown] amlodipine 5 mg tablet 5 mg PO QDAY #90 tabs 06/05/21 [Rx Last Taken Unknown] losartan 25 mg tablet 25 mg PO QDAY #90 tabs 07/07/21 [Rx Last Taken Unknown] omeprazole 40 mg capsule,delayed release 40 mg PO DAILY #90 caps 07/09/21 [Rx Last Taken Unknown] albuterol sulfate 90 mcg/actuation aerosol inhaler (Ventolin HFA) 2 puff inhalation Q6H PRN shortness of breath or wheezing #25.5 grams 07/23/21 [Rx Last Taken Unknown] duloxetine 30 mg capsule,delayed release 30 mg PO BID #180 caps 09/17/21 [Rx Last Taken Unknown] apixaban 2.5 mg tablet 2.5 mg PO BID #180 tabs 11/06/21 [Rx Last Taken Unknown] mecobalamin (vitamin B12) 1,000 mcg disintegrating tablet,sublingual 1,000 mcg sublingual Q OTHER DAY supplement 11/06/21 [History Last Taken Unknown] metoprolol tartrate 50 mg tablet 50 mg PO QHS heart/BP 11/06/21 [History Last Taken Unknown] acetaminophen 500 mg tablet 1,000 mg PO Q8 #0 tabs 11/18/21 [Rx Last Taken Unknown] nut.tx.comp. immune systm,reg 0.08 gram-1.4 kcal/mL oral liquid (Ensure Surgery) 237 ml PO TIDCM #0 mL 11/18/21 [Rx Last Taken Unknown] sennosides 8.6 mg-docusate sodium 50 mg tablet (Stool Softener-Stimulant Laxative) 2 tab PO BID #0 tabs 11/18/21 [Rx Last Taken Unknown] tramadol 50 mg tablet 50 mg PO Q6H PRN PRN Pain Score 4-5 2 days #5 tabs 11/18/21 [Rx Last Taken Unknown] levothyroxine 137 mcg tablet 137 mcg PO QDAY #90 tabs 01/07/22 [Rx Last Taken Unknown] oxycodone-acetaminophen 5 mg-325 mg tablet (Percocet) 1 tab PO Q6H PRN pain 3 days #10 tabs 01/17/22 [Rx Last Taken Unknown] Allergy/AdvReac Type Severity Reaction Status Date / Time No Known Allergies Allergy Verified 01/17/22 14:46 Family History Mother CVA (cerebral vascular accident) Brother CAD (coronary artery disease) Sister CAD (coronary artery disease) Myocardial infarction Son CAD (coronary artery disease) Surgical History (Updated 01/17/22 @ 15:04 by Falguni Goins) History of appendectomy History of bladder suspension procedure History of hernia repair History of hip surgery History of hysterectomy History of repair of hiatal hernia History of thyroidectomy History of tubal ligation S/P right rotator cuff repair Social History household members: significant other Smoking Status: Never smoker alcohol intake: never substance use type: does not use caffeine: No what type of physical activity do you participate in: other details: [facility] ROS ROS ED Constitutional Constitutional ED: Denies chills, fever(s) or subjective ENT ENT ED: Denies rhinorrhea Cardiovascular Cardiovascular: Denies chest pain or palpitations Respiratory/Chest Respiratory/Chest: Denies cough or dyspnea Gastrointestinal Gastrointestinal: Reports other Details: Patient is eating drinking urinating moving bowels normally ; Denies nausea or vomiting Genitourinary Genitourinary ED: Denies dysuria, hematuria or urinary frequency Musculoskeletal Musculoskeletal: Reports arthralgias; Denies back pain Integumentary Denies rash Neurologic Neurologic: Denies paresthesias or weakness Hematologic/Lymphatic Hematologic/Lymphatic: Reports easy bleeding and easy bruising Allergic/Immunologic Allergic/Immunologic ED: Denies urticaria EXAM Physical Exam Const Vital Signs: 01/17/22 14:44 Temperature 98.3 F Temperature Source Temporal Pulse Rate 96 Respiratory Rate 16 Blood Pressure 159/90 H Blood Pressure Mean 113 Pulse Ox 96 Oxygen Delivery Method Room Air Positive well nourished and well developed General Appearance ED: well developed HEENT atraumatic Chest Wall inspection of chest normal Resp normal respiratory effort and no retractions Cardio regular rate and regular rhythm Cardio Narrative: Patient has a history of atrial fibrillation but she sounds regular at this time. GI non-tender and non-distended GI Narrative: Abdomen is completely benign. Including no tenderness at the left lower quadrant. Back/Spine no CVA tenderness Extremity normal to inspection Extremity Narrative: There is no swelling bruising or tenderness of the calf or leg. I can rotate her hip or do some axial loading without any notable pain. But when I have her try to lift her leg off the bed she gets a lot of pain in the front. But there is no pain with joint motion. At this point, I did not attempt walking her. Neuro Sensorium / Orientation: alert Psych mental status grossly normal Skin no wounds Skin Narrative: Incision on the right side is healing beautifully MDM MDM MDM Narrative Medical decision making narrative: X-rays of the hip looked at by me and read by radiology shows no acute process. She is better with pain meds. I think this is mostly muscular. It is primarily affected with motion and weightbearing. But motion of the joint without weight does not hurt. This is likely due to rehab from her hip. She will do a little bit of rest I will write for some pain meds. She is actually going to stay with her son who has a single floor house and she will have help. Radiography Diagnostic Testing: Clinical Impression(s) from Imaging Studies Hip/Pelvis X-Ray 01/17/22 15:50 IMPRESSION: No fracture or malalignment. Electronically Signed: Cali Jackson MD ([place]) at 16:09 EDT , Discharge Plan Triage Chief Complaint: Lower Extremity Injury ED Provider: Newton Zamarripa Dx/Rx/DC Orders Clinical Impression: Acute pain of left hip Instructions: ED Hip Strain Prescriptions: New oxycodone-acetaminophen [Percocet] 5-325 mg tablet 1 tab PO Q6H PRN (Reason: pain) 3 Days Qty: 10 0RF No Action ascorbic acid (vitamin C) 500 mg tablet 500 mg PO QDAY mecobalamin (vitamin B12) 1,000 mcg tablet,disintegrating 1,000 mcg sublingual Q OTHER DAY Rx Instructions: place tablet under tongue and allow to dissolve for at least30 secs before swallowing albuterol sulfate [Ventolin HFA] 90 mcg/actuation HFA aerosol inhaler 2 puff INHALATION Q6H PRN (Reason: shortness of breath or wheezing) Qty: 25.5 1RF Rx Instructions: administer with spacer metoprolol tartrate 50 mg tablet 50 mg PO QHS Rx Instructions: at bedtime apixaban 2.5 mg tablet 2.5 mg PO BID Qty: 180 3RF multivitamin 1 EACH tablet 1 tab PO DAILY sennosides-docusate sodium [Stool Softener-Stimulant Laxat] 8.6-50 mg Tablet 2 tab PO BID Qty: 0 0RF acetaminophen 500 mg Tablet 1,000 mg PO Q8 Qty: 0 0RF Ensure Surgery 0.08-1.4 gram-kcal/mL Liquid 237 ml PO TIDCM Qty: 0 0RF tramadol 50 mg Tablet 50 mg PO Q6H PRN PRN (Reason: Pain Score 4-5) 2 Days Qty: 5 0RF (DME) inhalational spacing device Spacer See Rx Instructions .ROUTE .MEDSUPPLY Qty: 1 0RF Rx Instructions: As directed atorvastatin 20 mg tablet 20 mg PO QDAY Qty: 90 3RF amlodipine 5 mg tablet 5 mg PO QDAY Qty: 90 3RF losartan 25 mg tablet 25 mg PO QDAY Qty: 90 3RF omeprazole 40 mg capsule,delayed release(DR/EC) 40 mg PO DAILY Qty: 90 1RF duloxetine 30 mg capsule,delayed release(DR/EC) 30 mg PO BID Qty: 180 6RF levothyroxine 137 mcg tablet 137 mcg PO QDAY Qty: 90 1RF Primary Care Provider: Jamir Guardado Referrals: Jamir Guardado, [Primary Care Provider] - As soon as possible Long Tay MD [Med Staff - Active Staff] - As soon as possible Disposition Disposition: Home, Self Care
--- NOTE | 2022-01-17 15:50 | RAD_ITS ---
STUDY: X-RAY - PELVIS AND LEFT HIP REASON FOR EXAM: Female, 81 years old. pain TECHNIQUE: 3 views of the pelvis and hip. COMPARISON: None. FINDINGS: There is a non-specific bowel gas pattern. Operative changes of the lower pelvis wall. Degenerative changes of the lumbar spine. Right hip replacement. Normal bilateral iliac wings, sacroiliac joints and visualized sacrum. Normal bilateral superior and inferior pubic rami. Normal pubic symphysis. Normal bilateral ischial tuberosities. Normal visualized femoral head. Normal acetabulum. Normal hip joint. RAD/HIP, UNI W/ Pelvis 2-3 Views IMPRESSION: No fracture or malalignment. Electronically Signed: Cali Jackson MD ([place]) at 16:09 EDT ,
[2022-01-17 17:15] VITALS: BP 156/84; PULSE 86; RESP 18; O2SAT 95
== END 2022-01-17 17:19 | disposition home or self-care (01) ==
PROVIDERS: Emergency Provider Emergency Medicine; PCP Family Medicine; Visit Provider Emergency Medicine
DX: M25.552 Pain in left hip (principal); E78.5 Hyperlipidemia, unspecified; I10 Essential (primary) hypertension; I25.10 Atherosclerotic heart disease of native coronary artery without angina pectoris; Z79.899 Other long term (current) drug therapy; Z96.641 Presence of right artificial hip joint
CPT/HCPCS: 73502; 99283

== ENCOUNTER → 2022-01-21 | Outpatient (CLI) | payer MEDICARE, SELFPAY ==
[2022-01-21 19:13] LABS: Mucous, Urine 0 SEEN /hpf (<or=2+); Red Blood Cells-Urine 0 SEEN /hpf (0-5)
[2022-01-21 19:19] LABS: Color, Urine Yellow (Yellow); Glucose, Dipstick Normal (Normal); Ketone-Dipstick Negative (Negative); Leukocyte Esterase-Dipstick 100 /ul (Negative); Nitrite-Dipstick Negative (Negative); Occult Blood-Urine Negative /ul (Negative); Protein-Dipstick 30 mg/dl (Negative); Urine Bilirubin Dipstick Negative (Negative); Urine Clarity Sl. Cloudy (Clear); Urine Urobilinogen Normal (Normal)
[2022-01-21 19:31] LABS: Bacteria 3+ /hpf (None Seen); Squamous Epithelial Cells - UA 0-5 SEEN /hpf (5-10); White Blood Cells 10-25 SEEN /hpf (0-5)
== END | disposition home or self-care (01) ==
PROVIDERS: PCP Family Medicine; Visit Provider Physician Assistant
DX: R30.9 Painful micturition, unspecified (principal)
CPT/HCPCS: 81001; 87086; 87088

== ENCOUNTER → 2022-02-12 | Outpatient (CLI) | payer MEDICARE, SELFPAY ==
[2022-02-12 15:10] LABS: Mucous, Urine 0 SEEN /hpf (<or=2+)
[2022-02-12 17:55] LABS: Color, Urine Yellow (Yellow); Glucose, Dipstick Normal (Normal); Ketone-Dipstick Negative (Negative); Leukocyte Esterase-Dipstick 500 /ul (Negative); Nitrite-Dipstick Negative (Negative); Occult Blood-Urine Negative /ul (Negative); Protein-Dipstick Negative (Negative); Specific Gravity, Urine 1.005 (1.002-1.030); Urine Bilirubin Dipstick Negative (Negative); Urine Urobilinogen Normal (Normal); Urine pH 6.5 (5.0 - 8.0)
[2022-02-12 18:21] LABS: Urine Clarity Clear (Clear)
[2022-02-12 19:26] LABS: Red Blood Cells-Urine 0-5 SEEN /hpf (0-5); White Blood Cells 10-25 SEEN /hpf (0-5)
[2022-02-12 19:27] LABS: Bacteria 4+ /hpf (None Seen); Squamous Epithelial Cells - UA 0-5 SEEN /hpf (5-10)
== END | disposition home or self-care (01) ==
LOC: BIMLAB 15:09
PROVIDERS: PCP Family Medicine; Visit Provider Family Medicine
DX: N39.0 Urinary tract infection, site not specified (principal)
CPT/HCPCS: 81001

== ENCOUNTER 2022-02-24 13:30 | Outpatient (RCR) | payer MEDICARE, SELFPAY ==
--- NOTE | 2022-01-02 14:12 | HP.PTEVAL_ITS ---
Patient's Visit Information JULIENNE FINNEY is a 81 year old F referred to Physical Therapy by Dr. 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 Date of Evaluation: 01/02/22 Physical Therapist: Ashvin Krause, PT, Cert MDT, OCS - Visit Plan Frequency: 2-3x /Week Duration: 4-6 Weeks Plan: S/P HEMIARTHROPLASTY ANTERIOR. PT INTERVENTIONS ROM ,GAIT /BALANCE TRAINING, STRENGTHNEING HIP /QUADS/HAMS ,FUNCTIONAL STRENGTHNEING , AND NUSTEP - Subjective This 81 y/o female presents to physical therapy with right hip hemiarthroplasty on November [address] [facility] done by DR Tay . Patient fell at home on November 13 right hip went to ER x-rays showed femoral neck fracture. Patient was is hospital for 5 days transferred to [facility] on November 18 ,for 10 days .Patient then was d/c to home with daughter November 28. Patient stayed with daughter 20 days and had [facility] PT ~ 4weeks and eventually return to home with boyfriend. Patient lives story with 5 steps with rails and stays on 1st floor . Walk in shower with grab bars and raised toilet seat. Patient has some assist with bathing and dressing . Friend does cooking and cleaning. Patient has some pain. Patient does have burning legs and feet with possible neuropathy and plans to see Neurologist and MRI showed mass on brain. Patient has weakness and difficulty with walking and condition affects QOL and function . SOCAIL: boyfriend. VOCATION: retired - Pain Right Hip Pain Intensity (Out of 10): 1 Pain Intensity Range: 10 - Objective POSTURE: mild forward posture ,hip/knees flexed knee valgus. NEUR0: C/O burning legs ,denies paresthesia/tingling. INSCION: anterior approach. GAIT: ambulates with fww slow rojelio hips/knees flexed ,with decrease stance time. BALANCE: fair + with fww. AROM: right hip flexion 90 degrees ,hip abd 30 degrees ,knee flexion 5 -115 degrees flexion. MMT: ( peak force) right quads 19.3 ,left 19.5 ,right hamstrings 16.5 , left 17.6 ,right hip flexion 17.8 ,left 23.9. STAIRS : ONE STEPS AT TIME with CGA. BED MOBILITY: min assist with legs supine-sit. TRANSFERS : sit-stand with MOD I - Balance/Special Test Scores Lower Extremity Functional Score: 23 - Goals Goal 1:: I with HEP for hip Goal Time Frame: 4-6 Weeks Goal 2:: Patient to ambulate with improved gait pattern with fww community distance for DR appointments and store Goal Time Frame: 4-6 Weeks Goal 3:: Patient to demonstrate 60% improvement with improved function and ADLS' Goal Time Frame: 4-6 Weeks Goal 4:: Patient to improve with tug score by 3-5 seconds to improve function Goal Time Frame: 4-6 Weeks Goal 5:: Patient to increase strength peak force of quads/hams/hip by 5-10 to improve gait Goal Time Frame: 4-6 Weeks Goal 6:: Patient to improve ROM to improve stairs safely to get in/out house with rails Goal Time Frame: 4-6 Weeks - Rehabilitation Potential Physical Therapy Diagnosis: This patient underwent s/p right hemiarthroplasty right hip from falling on November 15 thus has deficits with weakness ,pain impairs gait and function thus benefit skilled PT Rehabilitation Potential: Good - Anticipated Interventions Patient/Client Instruction: Educate patient on: Condition, Plan of Care For the Purpose of:: To decrease pain, To increase ROM, To improve muscle performance and motor function, To improve ability to perform ADL's, To increase tolerance to activity/condition/position, To improve performance and independence with ADL's, To improve ability of physical actions for home/community/work/leisure, To improve gait and locomotor functions, To improve health of tissue, To decrease soft tissue restriction, To increase flexi bility/ROM, To improve tolerance to ADL's Therapeutic Exercise to Include: Strength training, Endurance training, Balance training, Gait and locomotor training Comment: QUADS/HAMS/HIP For the Purpose of:: To decrease pain, To increase ROM, To improve muscle performance and motor function, To improve ability to perform ADL's, To increase tolerance to activity/condition/position, To improve ability of physical actions for home/community/work/leisure, To improve gait and locomotor functions, To improve health of tissue, To decrease soft tissue restriction, To increase flexibility/ROM, To improve endurance, To improve balance, To prevent re-injury, To improve tolerance to ADL's Thank you for the opportunity to evaluate your patient. For Medicare and Medicare HMO plans, please review the plan of care and approve it. It will need to be FAXED BACK to us at [phone] for Medicare purposes. For Medicare only, by signing this I certify the plan of care. Please let me know if there are questions or concerns regarding this plan of care. Physician Signature: Date:
--- NOTE | 2022-02-03 13:36 | HP.PTREVAL ---
Dr. 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 Please see the progress note below for an update on the physical therapy plan of care! Subjective: Patient is getting better ..Walked to with cane Objective/Function: POSTURE: mild forward posture. GAIT: ambulates with cane mild forward posture slow rojelio 2 point stance. BALANCE: good - with cane. STAIRS: ONE STEPS AT TIME WITH RAIL CANE. MMT: quads 25.4.hamstrings 25.8,hip flexion 20.9 Plan Plan: S/P ANUSAH-ARTHROPLASTY ANTERIOR. PT INTERVENTIONS ROM, GAIT /BALANCE TRAINING, STRENGTHNEING HIP /QUADS/HAMS, FUNCTIONAL STRENGTHNEING, AND NUSTEP Balance/Gait/Functional tests - Balance/Special Test Scores Lower Extremity Functional Score: 29 Tug Test: >30sec.=impaired mobility Goals Goal 1:: I with HEP for hip Goal Time Frame: 4-6 Weeks Goal Progress: Progressing Goal 2:: Patient to ambulate with improved gait pattern with fww community distance for DR appointments and store Goal Time Frame: 4-6 Weeks Goal Progress: Progressing Goal 3:: Patient to demonstrate 90% improvement with improved function and ADLS'( new goal) Goal Time Frame: 4-6 Weeks Goal 4:: Patient to improve with tug score by 3-5 seconds to improve function ( new goal) Goal Time Frame: 4-6 Weeks Goal 5:: Patient to increase strength peak force of quads/hams/hip by 5-10 to improve gait Goal Time Frame: 4-6 Weeks Goal Progress: Progressing Goal 6:: Patient to improve ROM to improve stairs safely to get in/out house with rails Goal Time Frame: 4-6 Weeks Goal Progress: Progressing Anticipated Interventions Patient/Client Instruction: Educate patient on: Condition, Plan of Care For the Purpose of:: To decrease pain, To increase ROM, To improve muscle performance and motor function, To improve ability to perform ADL's, To increase tolerance to activity/condition/position, To improve performance and independence with ADL's, To improve ability of physical actions for home/community/work/leisure, To improve gait and locomotor functions, To improve health of tissue, To decrease soft tissue restriction, To increase flexibility/ROM, To improve tolerance to ADL's Therapeutic Exercise to Include: Strength training, Endurance training, Balance training, Gait and locomotor training Comment: QUADS/HAMS/HIP For the Purpose of:: To decrease pain, To increase ROM, To improve muscle performance and motor function, To improve ability to perform ADL's, To increase tolerance to activity/condition/position, To improve ability of physical actions for home/community/work/leisure, To improve gait and locomotor functions, To improve health of tissue, To decrease soft tissue restriction, To increase flexibility/ROM, To improve endurance, To improve balance, To prevent re-injury, To improve tolerance to ADL's Please do not hesitate to contact me at [phone] by phone or if you have questions or concerns regarding this new plan of care! Sincerely, Ashvin Krause, PT, Cert MDT, OCS
--- NOTE | 2022-04-08 08:44 | HP.PT.NRP ---
JULIENNE FINNEY was seen in my office for initial evaluation on 01/02/22. The following Plan of Care was established for this patient: Initial Frequency: 2-3x /Week Initial Duration: 4-6 Weeks Patient/Client Instruction: Educate patient on: Condition, Plan of Care For the Purpose of:: To decrease pain, To increase ROM, To improve muscle performance and motor function, To improve ability to perform ADL's, To increase tolerance to activity/condition/position, To improve performance and independence with ADL's, To improve ability of physical actions for home/community/work/leisure, To improve gait and locomotor functions, To improve health of tissue, To decrease soft tissue restriction, To increase flexibility/ROM, To improve tolerance to ADL's Therapeutic Exercise to Include: Strength training, Endurance training, Balance training, Gait and locomotor training For the Purpose of:: To decrease pain, To increase ROM, To improve muscle performance and motor function, To improve ability to perform ADL's, To increase tolerance to activity/condition/position, To improve ability of physical actions for home/community/work/leisure, To improve gait and locomotor functions, To improve health of tissue, To decrease soft tissue restriction, To increase flexibility/ROM, To improve endurance, To improve balance, To prevent re-injury, To improve tolerance to ADL's This patient was last seen in our office . Pertinent comments regarding their Physical therapy will appear below: Patient seen for PT for OTTO for gait training ,strengthening and balance thus is d/c At this point I will be discontinuing this patient from physical therapy. I would be happy to see this patient again in the future if found appropriate by the physician. Thank you! Ashvin Krause, PT, Cert MDT, OCS Balance/Gait/Functional tests - Balance/Special Test Scores Lower Extremity Functional Score: 56 Tug Test: >30sec.=impaired mobility
== END 2022-02-24 19:00 | disposition home or self-care (01) ==
LOC: PT 13:30
PROVIDERS: PCP Family Medicine; Referring Provider Specialist; Visit Provider Specialist
DX: Z47.1 Aftercare following joint replacement surgery (principal); Z96.641 Presence of right artificial hip joint
CPT/HCPCS: 97110; 97116; 97162

== ENCOUNTER → 2022-02-26 | Outpatient (CLI) | payer MEDICARE, SELFPAY ==
[2022-02-26 13:46] LABS: Mucous, Urine 0 SEEN /hpf (<or=2+); Red Blood Cells-Urine 0 SEEN /hpf (0-5)
[2022-02-26 15:44] LABS: Color, Urine Yellow (Yellow); Glucose, Dipstick Normal (Normal); Ketone-Dipstick Negative (Negative); Leukocyte Esterase-Dipstick 500 /ul (Negative); Nitrite-Dipstick Negative (Negative); Occult Blood-Urine Negative /ul (Negative); Protein-Dipstick Negative (Negative); Urine Bilirubin Dipstick Negative (Negative); Urine Clarity Clear (Clear); Urine Urobilinogen Normal (Normal); Urine pH 6.5 (5.0 - 8.0)
[2022-02-26 16:06] LABS: Bacteria 1+ /hpf (None Seen); Squamous Epithelial Cells - UA 0-5 SEEN /hpf (5-10); White Blood Cells 5-10 SEEN /hpf (0-5)
== END | disposition home or self-care (01) ==
LOC: LABSPEC 13:45
PROVIDERS: PCP Family Medicine; Referring Provider Physician Assistant; Visit Provider Physician Assistant
DX: N39.0 Urinary tract infection, site not specified (principal)
CPT/HCPCS: 81001; 87086; 87088; 87186

== ENCOUNTER → 2022-05-20 | Outpatient (CLI) | payer MEDICARE, SELFPAY ==
[2022-05-20 12:11] LABS: Ferritin 16 ng/mL (8-252); Iron 56 ug/dL (50-170); Iron Binding Capacity,Total 359 ug/dL (250-450); PERCENT IRON SATURATION 15.6 % (15.0-55.0)
== END | disposition home or self-care (01) ==
LOC: LAB 10:31
PROVIDERS: PCP Family Medicine; Visit Provider Physician Assistant
DX: G25.81 Restless legs syndrome (principal)
CPT/HCPCS: 36415; 82728; 83540; 83550

== ENCOUNTER → 2022-06-30 | Outpatient (CLI) | payer MEDICARE, SELFPAY ==
--- NOTE | 2022-06-30 17:17 | RAD_ITS ---
STUDY: X-RAY CHEST REASON FOR EXAM: Female, 82 years old. Cough TECHNIQUE: PA and lateral views of the chest. COMPARISON: November 13, 2021. FINDINGS: There is hyperinflation of the lungs consistent with chronic obstructive lung disease (COPD). Left lower lung atelectasis. There is no demonstrated pleural abnormality. There is moderate cardiac enlargement. Normal mediastinum and salas. Normal visualized pulmonary arteries. There is atherosclerotic tortuosity of the aortic arch and descending thoracic aorta. There is demineralization of the osseous structures. There is right shoulder replacement. There is no demonstrated abnormality of the visualized soft tissue structures of the upper abdomen. RAD/Chest PA and Lateral IMPRESSION: COPD. Left lower lung atelectasis. Electronically Signed: Mike Bartlett MD at 22:25 EST ,
[2022-07-01 11:55] LABS: Bacteria 0 SEEN /hpf (None Seen); Mucous, Urine 0 SEEN /hpf (<or=2+); Red Blood Cells-Urine 0 SEEN /hpf (0-5)
[2022-07-01 12:18] LABS: Color, Urine Straw (Yellow); Glucose, Dipstick Normal (Normal); Ketone-Dipstick Negative (Negative); Leukocyte Esterase-Dipstick 100 /ul (Negative); Nitrite-Dipstick Negative (Negative); Occult Blood-Urine Negative /ul (Negative); Protein-Dipstick 15 mg/dl (Negative); Urine Bilirubin Dipstick Negative (Negative); Urine Clarity Sl. Cloudy (Clear); Urine Urobilinogen Normal (Normal); Urine pH 6.5 (5.0 - 8.0)
[2022-07-01 12:25] LABS: Squamous Epithelial Cells - UA 0-5 SEEN /hpf (5-10); White Blood Cells 10-25 SEEN /hpf (0-5)
== END | disposition home or self-care (01) ==
PROVIDERS: PCP Family Medicine; Referring Provider Nurse Practitioner Family; Visit Provider Nurse Practitioner Family
DX: R10.9 Unspecified abdominal pain (principal); N39.0 Urinary tract infection, site not specified; R05.9 Cough, unspecified
CPT/HCPCS: 71046; 81001; 87086; 87088

== ENCOUNTER 2022-07-23 10:16 | Emergency (ER) | payer MEDICARE, SELFPAY ==
[2022-07-23] VITALS (7 sets, daily range): BP systolic 140–165; BP diastolic 70–92; PULSE 80–106; RESP 16–20; TEMP 36.6; O2SAT 95–97; BMI 27.6
--- NOTE | 2022-07-23 10:42 | EDS_ITS ---
HPI History of Present Illness Chief Complaint: Shortness of Breath Narrative Narrative: 82-year-old female here with shortness of breath, wheezing in the setting of being treated for bronchitis with Augmentin. States she is on day 3 of 10. States that she has been compliant with antibiotics. She denies any chest pain but notes exertional shortness of breath. Denies any lower extremity edema, orthopnea or paroxysmal nocturnal dyspnea. The patient denies recent surgery in the last 4 weeks or immobilization in the last 3 days, denies previous diagnosis of DVT or PE, hemoptysis, unilateral leg swelling or malignancy with treatment the last 6 months. No estrogen use noted. No chest pain endorsed. No bleeding diathesis endorsed. States her most troubling symptom is her recurrent cough. States her cough is productive of glue-like sputum [facility] Medical History A-fib Abnormal electrocardiogram Abnormal pulmonary function test Acute bronchitis Atherosclerotic heart disease of [place] coronary artery without angina pectoris Chest discomfort Dyspnea (~01/30/21) Essential (primary) hypertension Hernia HLD (hyperlipidemia) Hyponatremia Hypothyroidism Mitral insufficiency, acute Neuropathy Non-rheumatic tricuspid valve insufficiency Nonrheumatic aortic (valve) insufficiency Nonrheumatic mitral (valve) insufficiency PAF (paroxysmal atrial fibrillation) Peripheral neuropathy Pure hypercholesterolemia UTI (urinary tract infection) Home Medications ascorbic acid (vitamin C) 500 mg tablet 500 mg PO QDAY supplement 09/14/17 [History Last Taken Unknown] multivitamin 1 tab PO DAILY supplement 06/29/18 [History Last Taken Unknown] inhalational spacing device #1 ea 11/07/20 [Rx Last Taken Unknown] apixaban 2.5 mg tablet 2.5 mg PO BID #180 tabs 11/06/21 [Rx Last Taken Unknown] acetaminophen 500 mg tablet 1,000 mg PO Q8 #0 tabs 11/18/21 [Rx Last Taken Unknown] sennosides 8.6 mg-docusate sodium 50 mg tablet (Stool Softener-Stimulant Laxative) 2 tab PO BID #0 tabs 11/18/21 [Rx Last Taken Unknown] levothyroxine 137 mcg tablet 137 mcg PO QDAY #90 tabs 01/07/22 [Rx Last Taken Unknown] omeprazole 40 mg capsule,delayed release 40 mg PO DAILY #90 caps 02/10/22 [Rx Last Taken Unknown] lysine 500 mg tablet 500 mg PO DAILY 02/12/22 [History Last Taken Unknown] nebulizer #1 ea 02/12/22 [Rx Last Taken Unknown] atorvastatin 20 mg tablet See Rx Instructions .Route .COMPLEX #90 tabs 04/06/22 [Rx Last Taken Unknown] pregabalin 25 mg capsule 50 mg PO BID 05/06/22 [History Last Taken Unknown] metoprolol tartrate 50 mg tablet 50 mg PO QHS heart/BP #90 tabs 05/14/22 [Rx Last Taken Unknown] amlodipine 5 mg tablet See Rx Instructions .Route .COMPLEX #90 tabs 06/22/22 [Rx Last Taken Unknown] losartan 25 mg tablet See Rx Instructions .Route .COMPLEX #90 tabs 06/22/22 [Rx Last Taken Unknown] albuterol sulfate 1.25 mg/3 mL solution for nebulization 1.25 mg (3 mL) inhalation Q4H #90 mL 06/30/22 [Rx Last Taken Unknown] albuterol sulfate 90 mcg/actuation aerosol inhaler (Ventolin HFA) 2 puff inhalation Q6H PRN shortness of breath or wheezing #25.5 grams 06/30/22 [Rx Last Taken Unknown] levofloxacin 500 mg tablet 500 mg PO DAILY #10 tabs 07/21/22 [Rx Last Taken Unknown] acetaminophen 300 mg-codeine 15 mg tablet 1 tab PO Q8H PRN cough #20 tabs 07/23/22 [Rx Last Taken Unknown] Allergy/AdvReac Type Severity Reaction Status Date / Time No Known Allergies Allergy Verified 07/23/22 10:19 Family History Mother CVA (cerebral vascular accident) Brother CAD (coronary artery disease) Sister CAD (coronary artery disease) Myocardial infarction Son CAD (coronary artery disease) Surgical History History of appendectomy History of bladder suspension procedure History of cataract surgery History of hernia repair History of hip surgery History of hysterectomy History of repair of hiatal hernia History of thyroidectomy History of tubal ligation S/P right rotator cuff repair Social History household members: significant other Smoking Status: Never smoker alcohol intake: never substance use type: does not use caffeine: No what type of physical activity do you participate in: other details: [employer] ROS ROS ED ROS Narrative Constitutional: Denies fever HEENT: Denies sore throat Neck: Denies neck pain Cardiovascular: Denies chest pain, syncope Respiratory: Endorses shortness of breath, cough GI: Denies nausea vomiting or abdominal pain : Denies changes in urinary habits Musculoskeletal: Denies muscle or joint pain Neurologic: Denies numbness weakness or loss of sensation Skin denies rash EXAM Physical Exam Narrative Exam Narrative: Nursing triage notes reviewed, Vital signs reviewed Constitutional: please see mdm HENT: MMM Eyes: Pupils equal round and reactive to light, Extraocular muscles intact Neck: No stridor, no JVD, full neck ROM Lungs: Clear to auscultation, bilateral wheezing, speaking full sentences, no respiratory distress noted. No increased work of breathing, no conversational dyspnea, no accessory muscle use, no nasal flaring. No respiratory distress noted Heart: Regular rate and rhythm, No murmurs, No rubs and No gallops, 2+ distal pulses (radial, femoral, posterior tibial) in all extremities Abdomen: Soft, there is no tenderness, rigidity, rebound or guarding, no obvious peritoneal signs, no palpable pulsatile abdominal masses, no auscultated abdominal bruit : No CVAT Extremities: No edema Neuro: No focal neurological deficits, cranial nerves II through XII intact, 5/5 strength in all extremities. Intact sensation to light touch in all extremities, 2+ reflexes bilateral patella dens. Normal gait. No ataxia. Skin: No rash or lesions noted Const Vital Signs: 07/23/22 10:17 07/23/22 10:19 07/23/22 11:02 Temperature 98 F 98 F Temperature Source Temporal Temporal Pulse Rate 106 H 80 Respiratory Rate 20 H 18 Respiratory Effort Short of Breath Respiratory Depth Normal Respiratory Pattern Normal Blood Pressure 165/92 H 140/70 H Blood Pressure Mean 116 93 Pulse Ox 95 96 Oxygen Delivery Method Room Air Room Air Room Air 07/23/22 11:22 07/23/22 11:50 07/23/22 12:56 Temperature 97.9 F Temperature Source Temporal Pulse Rate 90 88 84 Respiratory Rate 18 16 18 Respiratory Effort Respiratory Depth Respiratory Pattern Normal Blood Pressure 144/74 H 153/73 H Blood Pressure Mean 97 99 Pulse Ox 95 97 Oxygen Delivery Method Room Air Room Air [facility] MDM MDM Narrative Medical decision making narrative: Chief Complaint: Shortness of breath External records reviewed: Chest x-ray from 07/21/2022 shows stable increased markings along base worse on the left Seen at urgent care on 07/21/2022 for 5 weeks of cough chest congestion and fatigue. At that time patient states he was treated with Augmentin and Medrol with only partial improvement. I considered the following differential diagnosis: COPD exacerbation, pneumonia, PE, heart failure, anemia The patient had a low risk Wells score and as such have a low suspicion for pulmonary embolism. Additionally patient is on Eliquis which makes VTE less likely. Patient had no stigmata of heart failure on exam did obtain a chest x- ray and BNP which showed no definitive evidence of heart failure. Remainder of labs images were negative for evidence of myocardial ischemia, anemia, significant systemic inflammation. X-ray showed no evidence of obvious pneumonia. The patient is likely suffering from mild COPD exacerbation. She is encouraged to continue antibiotics of course complete. She is encouraged to continue take breathing treatments at home. She was ambulated here in the emergency department out any significant hypoxia. He is appropriate for discharge home with close PCP follow-up. She is given strict return precautions. Factors affecting care: History of COPD Social determinants of health: Elderly, poor health literacy History obtained from others: The patient's family Shared decision making: I will have a discussion with the patient and or visitors regarding risk/benefits of further testing or admission. They will be made aware of of the risk/benefits inherent in this decision they will be given the opportunity to voice understanding. Consults: None History & Record Review Discussion w/independent historian: Family Additional record(s) reviewed:: Prior outpatient record Lab Data Attestation: I reviewed the patient's lab results. Lab results narrative: CBC without leukocytosis, severe anemia, no thrombocytopenia. BMP without evidence of significant electrolyte abnormalities, no anion gap, no acute kidney injury. Troponin is negative, no evidence of myocardial ischemia BNP mildly elevated consistent with increased transmural wall pressure ventricular stretch likely secondary to cough and shortness of breath Labs: Laboratory Results - last 24 hr 07/23/22 07/23/22 07/23/22 10:30 10:30 10:30 WBC 7.5 RBC 4.38 Hgb 13.0 Hct 39.7 MCV 90.6 MCH 29.7 MCHC 32.7 RDW Std Deviation 48.3 H RDW Coeff of Koko 14.5 Plt Count 242 MPV 10.0 Immature Gran % (Auto) 0.300 Neut % (Auto) 61.9 Lymph % (Auto) 25.7 Routt % (Auto) 5.1 Eos % (Auto) 5.9 H Baso % (Auto) 1.1 H Absolute Neuts (auto) 4.7 Absolute Lymphs (auto) 1.93 Nucleated RBC % 0 Sodium 137 Potassium 3.6 Chloride 102 Carbon Dioxide 28.0 Anion Gap 7 BUN 15 Creatinine 0.74 Estim Creat Clear Calc 35.88 Est GFR (MDRD) Af Amer 96 Est GFR (MDRD) Non-Af 79 BUN/Creatinine Ratio 20.2 H Glucose 106 Calcium 9.2 Troponin I High Sens 7 B-Natriuretic Peptide 116.5 H ABG Data ABG results: ABG 07/23/22 11:45 Specimen Type MAURILIO VBG pH 7.41 VBG pO2 43 H VBG HCO3 29 H VBG Total CO2 30 VBG O2 Sat (Calc) 78 H VBG Base Excess 4 H POC Mix VBG pCO2 Pt Tmp 45.4 Radiography Chest X-Ray - ED: Read by ED Physician Diagnostic Testing: Clinical Impression(s) from Imaging Studies Chest X-Ray 07/23/22 11:58 IMPRESSION: Stable increased markings at the lung bases likely more prominent left lung base suggestive of scarring. Stable blunting of both costophrenic angles. Electronically Signed: Berlin Parks MD at 12:13 EDT , Treatment and Re-Evaluation :: Patient was ambulated without significant hypoxia. She is appropriate for discharge home to continue oral antibiotics. Did write a prescription for Tylenol with codeine to improve cough symptoms and quality of life metrics. Did give strict return precautions and follow-up instructions and home care instructions. Discharge Plan Triage Chief Complaint: Shortness of Breath ED Provider: Munir Morales Dx/Rx/DC Orders Clinical Impression: COPD with exacerbation, Acute bronchitis Instructions: Asthma and COPD, What Is Acute Bronchitis? Prescriptions: New acetaminophen-codeine 300-15 mg tablet 1 tab PO Q8H PRN (Reason: cough) Qty: 20 0RF No Action ascorbic acid (vitamin C) 500 mg tablet 500 mg PO QDAY apixaban 2.5 mg tablet 2.5 mg PO BID Qty: 180 3RF metoprolol tartrate 50 mg tablet 50 mg PO QHS Qty: 90 3RF Rx Instructions: at bedtime lysine 500 mg tablet 500 mg PO DAILY (DME) nebulizer See Rx Instructions .Route .MEDSUPPLY Qty: 1 0RF Rx Instructions: As directed pregabalin 25 mg capsule 50 mg PO BID albuterol sulfate [Ventolin HFA] 90 mcg/actuation HFA aerosol inhaler 2 puff INHALATION Q6H PRN (Reason: shortness of breath or wheezing) Qty: 25.5 1RF Rx Instructions: administer with spacer levofloxacin 500 mg tablet 500 mg PO DAILY Qty: 10 0RF multivitamin 1 EACH tablet 1 tab PO DAILY sennosides-docusate sodium [Stool Softener-Stimulant Laxat] 8.6-50 mg Tablet 2 tab PO BID Qty: 0 0RF acetaminophen 500 mg Tablet 1,000 mg PO Q8 Qty: 0 0RF (DME) inhalational spacing device Spacer See Rx Instructions .ROUTE .MEDSUPPLY Qty: 1 0RF Rx Instructions: As directed levothyroxine 137 mcg tablet 137 mcg PO QDAY Qty: 90 1RF omeprazole 40 mg capsule,delayed release(DR/EC) 40 mg PO DAILY Qty: 90 1RF atorvastatin 20 mg tablet See Rx Instructions .ROUTE .COMPLEX Qty: 90 3RF Dose Instruction: TAKE 1 TABLET DAILY Rx Instructions: TAKE 1 TABLET DAILY losartan 25 mg tablet See Rx Instructions .ROUTE .COMPLEX Qty: 90 3RF Dose Instruction: TAKE 1 TABLET DAILY Rx Instructions: TAKE 1 TABLET DAILY amlodipine 5 mg tablet See Rx Instructions .ROUTE .COMPLEX Qty: 90 3RF Dose Instruction: TAKE 1 TABLET DAILY Rx Instructions: TAKE 1 TABLET DAILY albuterol sulfate 1.25 mg/3 mL solution for nebulization 1.25 mg inhalation Q4H Qty: 90 1RF Primary Care Provider: Jamir Guardado Referrals: Jamir Guardado, DO [Primary Care Provider] - Activity Restrictions/Additional Instructions: Please return if your symptoms change or worsen. Please complete entire antibiotic course. Please call your primary care physician for outpatient follow-up and reevaluation. Disposition Disposition: Home, Self Care
--- NOTE | 2022-07-23 11:11 | EKG12_ITS ---
Test Reason : SOB Blood Pressure : / mmHG Vent. Rate : 087 BPM Atrial Rate : 000 BPM P-R Int : 000 ms QRS Dur : 132 ms QT Int : 400 ms P-R-T Axes : 000 -15 -38 degrees QTc Int : 481 ms Atrial fibrillation Right bundle branch block T wave abnormality, consider inferolateral ischemia Abnormal ECG Confirmed by GERA HOPE, MRAÍA ([id number]), editorial intern SILVIO VIERA ([id number]) on 07/24/2022 10:49:18 AM Referred By: VIVI Confirmed By:MARÍA BOSS MD
[2022-07-23] MEDS: Ipratropium/Albuterol Sulfate 3 ML AMPUL.NEB INHALATION (11:21)
[2022-07-23 11:25] LABS: Absolute Lymphocyte Count 1.93 X10^3/uL (0.83-4.51); Absolute Neutrophil Count 4.7 X10^3/uL (2.0-7.7); Basophil# 0.08 X10^3/uL; Basophil% 1.1 % (0-1); Eosinophil# 0.44 X10^3/uL; Eosinophils% 5.9 % (0-5); Hematocrit 39.7 % (37-47); Lymphocyte # 1.93 X10^3/ul (0.83-4.51); Lymphocyte % 25.7 % (19-41); Mean Corp Hgb Conc 32.7 g/dL (32-36); Mean Corpuscular Hgb 29.7 pg (27.0-32.0); Mean Corpuscular Volume 90.6 fL (81-99); Monocyte# 0.38 X10^3/uL; Monocyte% 5.1 % (0-10); NRBC Flagged by Analyzer 0 % (0-5); Neutrophil # 4.65 X10^3/uL (2.7-7.7); Neutrophil % 61.9 % (47-70); Platelet Count 242 K/mm3 (150-450); RBC Distribution Width CV 14.5 % (11.6-14.6); RBC Distribution Width SD 48.3 fl (35.1-43.9); Red Blood Count 4.38 M/mm3 (4.2-5.4); White Blood Count 7.5 K/mm3 (4.4-11.0)
[2022-07-23 11:46] LABS: Anion Gap 7 (5-15); BNP,B-Type NATRIURETIC PEPTIDE 116.5 pg/mL (0-100); BUN 15 mg/dL (7-18); BUN/Creat Ratio 20.2 RATIO (10-20); Calcium,Total 9.2 mg/dL (8.5-10.1); Chloride 102 mmol/L (98-107); Creatinine, Serum 0.74 mg/dL (0.55-1.02); EST Glomerular Filtration Rate 79 mL/min (>60); Est Glom Filt Rate - Afr Amer 96 mL/min (>60); Estimated Creatinine Clearance 35.88 ml/min; Glucose 106 mg/dL (74-106); Potassium 3.6 mmol/L (3.5-5.1); Sodium Level 137 mmol/L (136-145); Troponin-I HS 7 pg/mL (3.0-54.0)
[2022-07-23] MEDS: Acetaminophen/Codeine #3 Tablet 1 TABLET PO (11:47)
[2022-07-23 11:51] LABS: Blood Gas Specimen Type VEN; VBG BASE EXCESS 4 mmol/L (-1.0-3.5); VBG Bicarbonate 29 mmol/L (22-26); VBG PO2 43 mmHg (25-40); VBG SO2 78 % (50-70); VBG TCO2 30 mmol/L (23-33); VBG pCO2 45.4 mmHg (41-51); VBG pH 7.41 (7.32-7.42)
--- NOTE | 2022-07-23 11:58 | RAD_ITS ---
STUDY: X-RAY CHEST REASON FOR EXAM: Female, 82 years old. Cough r/o PNA TECHNIQUE: PA and lateral views of the chest. COMPARISON: Comparison is made with prior study July 21, 2022. FINDINGS: EKG electrodes are seen. Hyperinflation. Stable increased markings at the lung bases slightly more prominent on the left side suggests some basilar scarring. Blunting of both cost phrenic angles. There is mild cardiac enlargement. Normal mediastinum and salas. Normal visualized pulmonary arteries. There is atherosclerotic calcification of the aortic arch with tortuosity. Normal visualized thoracic spine. Status post right shoulder replacement. There is no demonstrated abnormality of the visualized soft tissue structures of the upper abdomen. RAD/Chest PA and Lateral IMPRESSION: Stable increased markings at the lung bases likely more prominent left lung base suggestive of scarring. Stable blunting of both costophrenic angles. Electronically Signed: Berlin Parks MD at 12:13 EDT ,
== END 2022-07-23 13:41 | disposition home or self-care (01) ==
PROVIDERS: Emergency Provider Emergency Medicine; PCP Family Medicine; Visit Provider Emergency Medicine
DX: J44.1 Chronic obstructive pulmonary disease with (acute) exacerbation (principal); E78.00 Pure hypercholesterolemia, unspecified; I25.10 Atherosclerotic heart disease of native coronary artery without angina pectoris; I10 Essential (primary) hypertension
CPT/HCPCS: 71046; 80048; 82803; 83880; 84484; 85025; 87428; 93005; 94640; 99285; A4216

== ENCOUNTER 2022-07-24 06:49 | Emergency (ER) | payer MEDICARE, SELFPAY ==
--- NOTE | 2022-07-24 06:45 | EKG12_ITS ---
Test Reason : HTN Blood Pressure : / mmHG Vent. Rate : 096 BPM Atrial Rate : 000 BPM P-R Int : 000 ms QRS Dur : 132 ms QT Int : 380 ms P-R-T Axes : 000 -10 -37 degrees QTc Int : 480 ms Atrial fibrillation Right bundle branch block Abnormal ECG Confirmed by GERA HOPE, MARÍA ([id number]), slot editor SILVIO VIERA ([id number]) on 07/28/2022 8:22:49 AM Referred By: LAUREN Confirmed By:MARÍA BOSS MD
[2022-07-24 06:50] VITALS: BP 180/90; PULSE 100; RESP 23; TEMP 36.3; O2SAT 96; BMI 27.6
--- NOTE | 2022-07-24 07:04 | EDS_ITS ---
HPI History of Present Illness Chief Complaint: Shortness of Breath Narrative Narrative: 82-year-old female here with shortness of breath. Patient has been seen multiple times in the outpatient setting in the ED diagnosed initially with clinical pneumonia and started antibiotics. Seen yesterday diagnosed with acute bronchitis given breathing treatments and discharged home after she walked well. She states she woke up this morning and had worsening shortness of breath, dyspnea on exertion. Denies any lower extremity edema. Notes cough is better than yesterday. Denies any chest pain. Denies any bleeding diathesis. [facility] Medical History A-fib Abnormal electrocardiogram Abnormal pulmonary function test Acute bronchitis Atherosclerotic heart disease of [place] coronary artery without angina pectoris Chest discomfort Dyspnea (~01/30/21) Essential (primary) hypertension Hernia HLD (hyperlipidemia) Hyponatremia Hypothyroidism Mitral insufficiency, acute Neuropathy Non-rheumatic tricuspid valve insufficiency Nonrheumatic aortic (valve) insufficiency Nonrheumatic mitral (valve) insufficiency PAF (paroxysmal atrial fibrillation) Peripheral neuropathy Pure hypercholesterolemia UTI (urinary tract infection) Home Medications ascorbic acid (vitamin C) 500 mg tablet 500 mg PO QDAY supplement 09/14/17 [History Last Taken Unknown] multivitamin 1 tab PO DAILY supplement 06/29/18 [History Last Taken Unknown] inhalational spacing device #1 ea 11/07/20 [Rx Last Taken Unknown] apixaban 2.5 mg tablet 2.5 mg PO BID #180 tabs 11/06/21 [Rx Last Taken Unknown] acetaminophen 500 mg tablet 1,000 mg PO Q8 #0 tabs 11/18/21 [Rx Last Taken Unknown] sennosides 8.6 mg-docusate sodium 50 mg tablet (Stool Softener-Stimulant Laxative) 2 tab PO BID #0 tabs 11/18/21 [Rx Last Taken Unknown] levothyroxine 137 mcg tablet 137 mcg PO QDAY #90 tabs 01/07/22 [Rx Last Taken Unknown] omeprazole 40 mg capsule,delayed release 40 mg PO DAILY #90 caps 02/10/22 [Rx Last Taken Unknown] lysine 500 mg tablet 500 mg PO DAILY 02/12/22 [History Last Taken Unknown] nebulizer #1 ea 02/12/22 [Rx Last Taken Unknown] atorvastatin 20 mg tablet See Rx Instructions .Route .COMPLEX #90 tabs 04/06/22 [Rx Last Taken Unknown] pregabalin 25 mg capsule 50 mg PO BID 05/06/22 [History Last Taken Unknown] metoprolol tartrate 50 mg tablet 50 mg PO QHS heart/BP #90 tabs 05/14/22 [Rx Last Taken Unknown] amlodipine 5 mg tablet See Rx Instructions .Route .COMPLEX #90 tabs 06/22/22 [Rx Last Taken Unknown] losartan 25 mg tablet See Rx Instructions .Route .COMPLEX #90 tabs 06/22/22 [Rx Last Taken Unknown] albuterol sulfate 1.25 mg/3 mL solution for nebulization 1.25 mg (3 mL) inhalation Q4H #90 mL 06/30/22 [Rx Last Taken Unknown] albuterol sulfate 90 mcg/actuation aerosol inhaler (Ventolin HFA) 2 puff inhalation Q6H PRN shortness of breath or wheezing #25.5 grams 06/30/22 [Rx Last Taken Unknown] levofloxacin 500 mg tablet 500 mg PO DAILY #10 tabs 07/21/22 [Rx Last Taken Unknown] acetaminophen 300 mg-codeine 15 mg tablet 1 tab PO Q8H PRN cough #20 tabs 07/23/22 [Rx Last Taken Unknown] ipratropium 0.5 mg-albuterol 3 mg (2.5 mg base)/3 mL nebulization soln 3 ml inhalation Q4H PRN shortness of breath or wheezing #180 mL 07/24/22 [Rx Last Taken Unknown] Allergy/AdvReac Type Severity Reaction Status Date / Time No Known Allergies Allergy Verified 07/24/22 06:53 Family History Mother CVA (cerebral vascular accident) Brother CAD (coronary artery disease) Sister CAD (coronary artery disease) Myocardial infarction Son CAD (coronary artery disease) Surgical History History of appendectomy History of bladder suspension procedure History of cataract surgery History of hernia repair History of hip surgery History of hysterectomy History of repair of hiatal hernia History of thyroidectomy History of tubal ligation S/P right rotator cuff repair Social History household members: significant other Smoking Status: Never smoker alcohol intake: never substance use type: does not use caffeine: No what type of physical activity do you participate in: other details: [facility] ROS ROS ED ROS Narrative Constitutional: Denies fever HEENT: Denies sore throat Neck: Denies neck pain Cardiovascular: Denies chest pain, syncope Respiratory: Endorses shortness of breath GI: Denies nausea vomiting or abdominal pain : Denies changes in urinary habits Musculoskeletal: Denies muscle or joint pain Neurologic: Denies numbness weakness or loss of sensation Skin denies rash EXAM Physical Exam Narrative Exam Narrative: Nursing triage notes reviewed, Vital signs reviewed Constitutional: please see mdm HENT: MMM Eyes: Pupils equal round and reactive to light, Extraocular muscles intact Neck: No stridor, no JVD, full neck ROM Lungs: Prolonged expiratory phase, minimal increased work of breathing, mild conversational dyspnea, mild accessory muscle use, tight lungs diminished breath sounds bilaterally wheezing bilaterally Heart: Regular rate and rhythm, No murmurs, No rubs and No gallops, 2+ distal pulses (radial, femoral, posterior tibial) in all extremities Abdomen: Soft, there is no tenderness, rigidity, rebound or guarding, no obvious peritoneal signs, no palpable pulsatile abdominal masses, no auscultated abdominal bruit : No CVAT Extremities: No edema Neuro: No focal neurological deficits, cranial nerves II through XII intact, 5/5 strength in all extremities. Intact sensation to light touch in all extremities, 2+ reflexes bilateral patella dens. Normal gait. No ataxia. Skin: No rash or lesions noted Const Vital Signs: 07/24/22 06:50 07/24/22 06:50 07/24/22 07:34 Temperature 97.4 F L Temperature Source Temporal Pulse Rate 100 89 Respiratory Rate 23 H 20 H Respiratory Effort Short of Breath Respiratory Depth Deep Respiratory Pattern Tachypnea Blood Pressure 180/90 H Blood Pressure Mean 120 Pulse Ox 96 Oxygen Delivery Method Room Air Room Air 07/24/22 08:19 07/24/22 08:51 Temperature Temperature Source Pulse Rate 99 Respiratory Rate 20 H Respiratory Effort Respiratory Depth Respiratory Pattern Blood Pressure 122/104 H Blood Pressure Mean Pulse Ox 94 95 Oxygen Delivery Method Room Air [facility] MDM MDM Narrative Medical decision making narrative: Chief Complaint: Shortness of breath External records reviewed: Seen yesterday I considered the following differential diagnosis: COPD exacerbation, PE, pneumonia, ACS, CHF exacerbation The patient was initially tachypneic, hypertensive but otherwise afebrile nontoxic-appearing had mild increased work of breathing conversational dyspnea and a lung exam was most consistent with likely COPD exacerbation in the setting of acute bronchitis. Given the patient's multiple visits, advanced age and multiple medical comorbidities I did explain the work-up today to include a CT of the chest rule out PE and to better define any lung pathology may exist. Give the patient empiric COPD treatment. CT of the chest showed no evidence of PE but did show evidence of pneumonia. Patient had no evidence of myocardial ischemia on EKG or troponin. BNP was essentially unchanged from yesterday. She had no lower extremity edema to suggest heart failure. Patient's likely etiology is pneumonia with COPD exacerbation. I offered the patient admission given advanced age, multiple medical comorbidities and multiple recent ED visits however patient refused. She is alert and orient x3 and had capacity to make own medical decisions and chose to be discharged home. Her daughter accompanied her and ensured that she can look after her mother and come back to the ED if symptoms change or worsen. Factors affecting care: History of COPD, A-fib on [employer] Social determinants of health: Poor health literacy, elderly History obtained from others: The patient's daughter Shared decision making: I will have a discussion with the patient and or visitors regarding risk/benefits of further testing or admission. They will be made aware of of the risk/benefits inherent in this decision they will be given the opportunity to voice understanding. Consults: None Lab Data Attestation: I reviewed the patient's lab results. Lab results narrative: CBC without leukocytosis, severe anemia, no thrombocytopenia. BMP without evidence of significant electrolyte abnormalities, no anion gap, no acute kidney injury. Troponin is negative, no evidence of myocardial ischemia BNP elevated but consistent with prior studies unlikely this represents heart failure Labs: Laboratory Results - last 24 hr 07/24/22 07/24/22 07/24/22 07:05 07:05 07:05 WBC 8.3 RBC 4.56 Hgb 13.6 Hct 42.4 MCV 93.0 MCH 29.8 MCHC 32.1 RDW Std Deviation 50.8 H RDW Coeff of [place] 14.7 H Plt Count 223 MPV 9.7 Immature Gran % (Auto) 0.100 Neut % (Auto) 56.9 Lymph % (Auto) 29.8 [place] % (Auto) 4.9 Eos % (Auto) 7.7 H Baso % (Auto) 0.6 Absolute Neuts (auto) 4.7 Absolute Lymphs (auto) 2.48 Nucleated RBC % 0 Sodium 136 Potassium 3.9 Chloride 102 Carbon Dioxide 27.0 Anion Gap 7 BUN 12 Creatinine 0.75 Estim Creat Clear Calc 35.88 Est GFR (MDRD) Af Amer 96 Est GFR (MDRD) Non-Af 79 BUN/Creatinine Ratio 16.1 Glucose 114 H Calcium 9.0 Troponin I High Sens 8 B-Natriuretic Peptide 128.6 H Radiography Diagnostic Testing: Clinical Impression(s) from Imaging Studies Chest CTA 07/24/22 07:16 IMPRESSION: No demonstrated pulmonary embolism or arterial dissection. Aneurysm of a sending aorta. Bilateral infiltrates detailed above with the right middle lobe and bibasilar bronchiectasis. Electronically Signed: Raf Mckeon MD, ALVARO at 8:10 EDT Reading Location ID and State: [facility] / [place] Tel , Service support , EKG Initial EKG: Attestation: I personally reviewed and interpreted this EKG as follows: Comments: EKG with normal sinus rhythm, left axis deviation, prolonged QT interval, ST depression and T wave inversions noted anteriorly similar to prior EKG on November 13, 2021. No obvious STEMI Prior EKG tracings: available for review Prior: Unchanged Discharge Plan Triage Chief Complaint: Shortness of Breath ED Provider: Munir Morales Dx/Rx/DC Orders Clinical Impression: Pneumonia, COPD with exacerbation Instructions: Treating Pneumonia, ED Pneumonia (Adult) Prescriptions: New ipratropium-albuterol 0.5 mg-3 mg(2.5 mg base)/3 mL solution for nebulization 3 ml inhalation Q4H PRN (Reason: shortness of breath or wheezing) Qty: 180 0RF No Action ascorbic acid (vitamin C) 500 mg tablet 500 mg PO QDAY apixaban 2.5 mg tablet 2.5 mg PO BID Qty: 180 3RF metoprolol tartrate 50 mg tablet 50 mg PO QHS Qty: 90 3RF Rx Instructions: at bedtime lysine 500 mg tablet 500 mg PO DAILY (DME) nebulizer See Rx Instructions .Route .MEDSUPPLY Qty: 1 0RF Rx Instructions: As directed pregabalin 25 mg capsule 50 mg PO BID albuterol sulfate [Ventolin HFA] 90 mcg/actuation HFA aerosol inhaler 2 puff INHALATION Q6H PRN (Reason: shortness of breath or wheezing) Qty: 25.5 1RF Rx Instructions: administer with spacer levofloxacin 500 mg tablet 500 mg PO DAILY Qty: 10 0RF multivitamin 1 EACH tablet 1 tab PO DAILY sennosides-docusate sodium [Stool Softener-Stimulant Laxat] 8.6-50 mg Tablet 2 tab PO BID Qty: 0 0RF acetaminophen 500 mg Tablet 1,000 mg PO Q8 Qty: 0 0RF acetaminophen-codeine 300-15 mg tablet 1 tab PO Q8H PRN (Reason: cough) Qty: 20 0RF (DME) inhalational spacing device Spacer See Rx Instructions .ROUTE .MEDSUPPLY Qty: 1 0RF Rx Instructions: As directed levothyroxine 137 mcg tablet 137 mcg PO QDAY Qty: 90 1RF omeprazole 40 mg capsule,delayed release(DR/EC) 40 mg PO DAILY Qty: 90 1RF atorvastatin 20 mg tablet See Rx Instructions .ROUTE .COMPLEX Qty: 90 3RF Dose Instruction: TAKE 1 TABLET DAILY Rx Instructions: TAKE 1 TABLET DAILY losartan 25 mg tablet See Rx Instructions .ROUTE .COMPLEX Qty: 90 3RF Dose Instruction: TAKE 1 TABLET DAILY Rx Instructions: TAKE 1 TABLET DAILY amlodipine 5 mg tablet See Rx Instructions .ROUTE .COMPLEX Qty: 90 3RF Dose Instruction: TAKE 1 TABLET DAILY Rx Instructions: TAKE 1 TABLET DAILY albuterol sulfate 1.25 mg/3 mL solution for nebulization 1.25 mg inhalation Q4H Qty: 90 1RF Primary Care Provider: Jamir Guardado Referrals: Jamir Guardado, DO [Primary Care Provider] - Activity Restrictions/Additional Instructions: Please continue take your antibiotics as prescribed. Please return if you develop worsening shortness of breath or if your symptoms change or worsen in any way. Please use home breathing treatments as prescribed for further improvement in symptoms Disposition Disposition: Home, Self Care Discharge Date/Time: 07/24/22 09:06
--- NOTE | 2022-07-24 07:16 | CT_ITS ---
STUDY: CTA CHEST REASON FOR EXAM: Female, 82 years old. SOB, r/o PE RADIATION DOSAGE (If Supplied By Facility): CTDIvol = ( 12.99 ) mGy, DLP = ( 343.04 ) mGycm TECHNIQUE: The examination was performed with the intravenous administration of IV 100mL [id number]-[id number]. Post-processing of the angiographic images was performed, with multiplanar reformation and 3D reconstruction. Individualized dose optimization techniques were used for this CT. COMPARISON: Chest x-ray 07/23/2022. FINDINGS: Normal enhancement of the main pulmonary artery and right and left pulmonary arteries. Normal enhancement of the bilateral peripheral pulmonary arteries. There is no demonstrated pulmonary embolism. 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 No evidence of aortic dissection. Aortic arch and descending aorta normal caliber. Moderately tortuous descending aorta. There is no demonstrated aortic dissection. Normal heart and pericardium. Normal mediastinum. Normal hilar regions. Normal trachea. There is a small infiltrate extending posteriorly from the left hilum. There is a moderate bronchiectasis in the right middle lobe and both lower lobes. Small infiltrate is seen in the medial and posterior basilar segment of the left lower lobe in the posterior basilar segment of the right lower lobe. Normal pulmonary parenchyma. Normal pleura. Normal chest wall structures. Right shoulder arthroplasty. Normal visualized upper abdomen. CT/CTA Chest W/WO Contrast IMPRESSION: No demonstrated pulmonary embolism or arterial dissection. Aneurysm of a sending aorta. Bilateral infiltrates detailed above with the right middle lobe and bibasilar bronchiectasis. Electronically Signed: Raf Mckeon MD, ALVARO at 8:10 EDT ,
[2022-07-24] MEDS: Ipratropium/Albuterol Sulfate 3 ML AMPUL.NEB INHALATION (07:18)
[2022-07-24] MEDS: predniSONE 20 MG Tablet 40 MG PO (07:32)
[2022-07-24 07:34] VITALS: PULSE 89; RESP 20
[2022-07-24 07:42] LABS: Absolute Lymphocyte Count 2.48 X10^3/uL (0.83-4.51); Absolute Neutrophil Count 4.7 X10^3/uL (2.0-7.7); Basophil# 0.05 X10^3/uL; Basophil% 0.6 % (0-1); Eosinophil# 0.64 X10^3/uL; Eosinophils% 7.7 % (0-5); Hematocrit 42.4 % (37-47); Hemoglobin 13.6 g/dL (12.0-15.0); Lymphocyte # 2.48 X10^3/ul (0.83-4.51); Lymphocyte % 29.8 % (19-41); Mean Corp Hgb Conc 32.1 g/dL (32-36); Mean Corpuscular Hgb 29.8 pg (27.0-32.0); Mean Platelet Vol. 9.7 fl (6.2-12.0); Monocyte# 0.41 X10^3/uL; Monocyte% 4.9 % (0-10); NRBC Flagged by Analyzer 0 % (0-5); Neutrophil # 4.72 X10^3/uL (2.7-7.7); Neutrophil % 56.9 % (47-70); Platelet Count 223 K/mm3 (150-450); RBC Distribution Width CV 14.7 % (11.6-14.6); RBC Distribution Width SD 50.8 fl (35.1-43.9); Red Blood Count 4.56 M/mm3 (4.2-5.4); White Blood Count 8.3 K/mm3 (4.4-11.0)
[2022-07-24 08:01] LABS: Anion Gap 7 (5-15); BUN 12 mg/dL (7-18); BUN/Creat Ratio 16.1 RATIO (10-20); Chloride 102 mmol/L (98-107); Creatinine, Serum 0.75 mg/dL (0.55-1.02); EST Glomerular Filtration Rate 79 mL/min (>60); Est Glom Filt Rate - Afr Amer 96 mL/min (>60); Estimated Creatinine Clearance 35.88 ml/min; Glucose 114 mg/dL (74-106); Potassium 3.9 mmol/L (3.5-5.1); Sodium Level 136 mmol/L (136-145); Troponin-I HS 8 pg/mL (3.0-54.0)
[2022-07-24 08:03] LABS: BNP,B-Type NATRIURETIC PEPTIDE 128.6 pg/mL (0-100)
[2022-07-24 08:19] VITALS: O2SAT 94
[2022-07-24 08:51] VITALS: BP 122/104; PULSE 99; RESP 20; O2SAT 95
== END 2022-07-24 09:06 | disposition home or self-care (01) ==
PROVIDERS: Emergency Provider Emergency Medicine; PCP Family Medicine; Visit Provider Emergency Medicine
DX: J44.1 Chronic obstructive pulmonary disease with (acute) exacerbation (principal); J44.0 Chronic obstructive pulmonary disease with (acute) lower respiratory infection; I48.91 Unspecified atrial fibrillation; J18.9 Pneumonia, unspecified organism; I25.10 Atherosclerotic heart disease of native coronary artery without angina pectoris; E78.00 Pure hypercholesterolemia, unspecified; I10 Essential (primary) hypertension; Z79.01 Long term (current) use of anticoagulants
CPT/HCPCS: 71275; 80048; 83880; 84484; 85025; 93005; 94640; 99284; Q9967; A4216

== ENCOUNTER 2022-07-30 14:50 | Emergency (ER) | payer MEDICARE, SELFPAY ==
[2022-07-30 14:50] VITALS: BP 164/95; PULSE 18; RESP 20; TEMP 37.7; O2SAT 95; BMI 27.6
[2022-07-30 14:55] VITALS: O2SAT 96
--- NOTE | 2022-07-30 15:06 | EKG12_ITS ---
Test Reason : SOB Blood Pressure : / mmHG Vent. Rate : 111 BPM Atrial Rate : 000 BPM P-R Int : 000 ms QRS Dur : 132 ms QT Int : 360 ms P-R-T Axes : 000 -31 -51 degrees QTc Int : 489 ms Atrial fibrillation with rapid ventricular response Left axis deviation Right bundle branch block Abnormal ECG Confirmed by DAISY HOPE, MARY ([id number]), web editor ITZEL PERLA ([id number]) on 08/03/2022 10:56:14 AM Referred By: CHARLY Confirmed By:HAYLEY VILLA MD
[2022-07-30 15:14] VITALS: PULSE 110; RESP 18
[2022-07-30] MEDS: Ipratropium/Albuterol Sulfate 3 ML AMPUL.NEB INHALATION (15:16)
--- NOTE | 2022-07-30 15:20 | RAD_ITS ---
EXAM: XR CHEST, 2 VIEWS CLINICAL INDICATION: Productive cough, wheezing and dyspnea. RECENTLY DIAGNOSED WITH PNEUMONIA. VERY ANXIOUS, STATES MORE SHORT OF BREATH SINCE YESTERDAY. TECHNIQUE: Frontal and lateral views of the chest. This report was created using [employer] report generation technology. COMPARISON: 07.23.22 FINDINGS: LUNGS AND PLEURAL SPACES: Unremarkable. No consolidation or edema. No pneumothorax. No effusion. HEART: Enlarged heart. MEDIASTINUM: Central airways and mediastinal contour are unremarkable. BONES/JOINTS: Total right shoulder arthroplasty. SOFT TISSUES: Unremarkable. RAD/Chest PA and Lateral IMPRESSION: No acute findings in the chest. Electronically Signed: Jean Farrell MD at 15:52 EDT ,
[2022-07-30] MEDS: predniSONE 20 MG Tablet 60 MG PO (15:37)
[2022-07-30 18:46] VITALS: O2SAT 96
--- NOTE | 2022-07-30 19:20 | EDS_ITS ---
HPI History of Present Illness Chief Complaint: Shortness of Breath Detail of Chief Complaint: Patient presents with shortness of breath and no improvement. Patient was Informant: patient and family Onset/Context/Timing Onset: Weeks Context: sudden Timing: Continuous and Waxes and wanes Quality: Positive for Dyspnea on exertion and Wheezing; Negative for Orthopnea or PND Current Severity: Mild Maximum Severity: Moderate Worsened by: Exertion and Coughing Relieved by: Nothing Associated Symptoms cough, rhinorrhea, post nasal drip, fever and sore throat; Negative for ear pain, subjective or chills Chest Pain: Positive for None Narrative Narrative: Patient is an 82-year-old woman with history of COPD, atrial fibrillation on anticoagulant, hypertension, hyperlipidemia, pure hypercholesterolemia, peripheral neuropathy and nonrheumatic valvular heart disease who presents because she has not improved. Records from July 23 and were reviewed. She was treated for COPD exacerbation. She was on antibiotics prior to her presentation. The antibiotic she was on was levofloxacin. She returned on the . CAT scan revealed a small right middle lobe infiltrate. Patient presents because she does not feel any better. She is taking the antibiotic. Patient's breathing is not labored. Breathing is not rapid. Heart rate is slightly rapid. She does have history of atrial fibrillation. She appears anxious. Reviewing prior records indicates she has history of anxiety/anxiousness. Patient's cough is essentially nonproductive. She does endorse rhinorrhea, congestion, postnasal drainage and sore throat. She denies leg pain, swelling or discoloration. She has no history of PE or DVT. Furthermore she is on an anticoagulant and reports compliance. Patient has no GI or symptoms. PE Risk Factors: Negative for Cancer, OCP + Smoking + > 35, Prior DVT or PE, Recent immobilization, Recent surgery or Recent travel Prior similar symptoms: Yes Recent Illness/Hospitalization: Yes [facility] Medical History A-fib Abnormal electrocardiogram Abnormal pulmonary function test Acute bronchitis Atherosclerotic heart disease of [place] coronary artery without angina pectoris Chest discomfort Dyspnea (~01/30/21) Essential (primary) hypertension Hernia HLD (hyperlipidemia) Hyponatremia Hypothyroidism Mitral insufficiency, acute Neuropathy Non-rheumatic tricuspid valve insufficiency Nonrheumatic aortic (valve) insufficiency Nonrheumatic mitral (valve) insufficiency PAF (paroxysmal atrial fibrillation) Peripheral neuropathy Pure hypercholesterolemia UTI (urinary tract infection) Home Medications ascorbic acid (vitamin C) 500 mg tablet 500 mg PO QDAY supplement 09/14/17 [History Last Taken Unknown] multivitamin 1 tab PO DAILY supplement 06/29/18 [History Last Taken Unknown] inhalational spacing device #1 ea 11/07/20 [Rx Last Taken Unknown] apixaban 2.5 mg tablet 2.5 mg PO BID #180 tabs 11/06/21 [Rx Last Taken Unknown] acetaminophen 500 mg tablet 1,000 mg PO Q8 #0 tabs 11/18/21 [Rx Last Taken Unknown] sennosides 8.6 mg-docusate sodium 50 mg tablet (Stool Softener-Stimulant Laxative) 2 tab PO BID #0 tabs 11/18/21 [Rx Last Taken Unknown] levothyroxine 137 mcg tablet 137 mcg PO QDAY #90 tabs 01/07/22 [Rx Last Taken Unknown] omeprazole 40 mg capsule,delayed release 40 mg PO DAILY #90 caps 02/10/22 [Rx Last Taken Unknown] lysine 500 mg tablet 500 mg PO DAILY 02/12/22 [History Last Taken Unknown] nebulizer #1 ea 02/12/22 [Rx Last Taken Unknown] atorvastatin 20 mg tablet See Rx Instructions .Route .COMPLEX #90 tabs 04/06/22 [Rx Last Taken Unknown] pregabalin 25 mg capsule 50 mg PO BID 05/06/22 [History Last Taken Unknown] metoprolol tartrate 50 mg tablet 50 mg PO QHS heart/BP #90 tabs 05/14/22 [Rx Last Taken Unknown] amlodipine 5 mg tablet See Rx Instructions .Route .COMPLEX #90 tabs 06/22/22 [Rx Last Taken Unknown] losartan 25 mg tablet See Rx Instructions .Route .COMPLEX #90 tabs 06/22/22 [Rx Last Taken Unknown] albuterol sulfate 1.25 mg/3 mL solution for nebulization 1.25 mg (3 mL) inhalation Q4H #90 mL 06/30/22 [Rx Last Taken Unknown] albuterol sulfate 90 mcg/actuation aerosol inhaler (Ventolin HFA) 2 puff inhalation Q6H PRN shortness of breath or wheezing #25.5 grams 06/30/22 [Rx Last Taken Unknown] levofloxacin 500 mg tablet 500 mg PO DAILY #10 tabs 07/21/22 [Rx Last Taken Unknown] acetaminophen 300 mg-codeine 15 mg tablet 1 tab PO Q8H PRN cough #20 tabs 07/23/22 [Rx Last Taken Unknown] ipratropium 0.5 mg-albuterol 3 mg (2.5 mg base)/3 mL nebulization soln 3 ml inhalation Q4H PRN shortness of breath or wheezing #180 mL 07/24/22 [Rx Last Taken Unknown] prednisone 20 mg tablet 60 mg PO DAILY #15 TABLETS 07/30/22 [Rx Last Taken Unknown] Allergy/AdvReac Type Severity Reaction Status Date / Time No Known Allergies Allergy Verified 07/30/22 14:54 Family History Mother CVA (cerebral vascular accident) Brother CAD (coronary artery disease) Sister CAD (coronary artery disease) Myocardial infarction Son CAD (coronary artery disease) Surgical History History of appendectomy History of bladder suspension procedure History of cataract surgery History of hernia repair History of hip surgery History of hysterectomy History of repair of hiatal hernia History of thyroidectomy History of tubal ligation S/P right rotator cuff repair Social History household members: significant other Smoking Status: Never smoker alcohol intake: never substance use type: does not use caffeine: No what type of physical activity do you participate in: other details: [employer] [facility] ED Constitutional Constitutional ED: Reports chills, fever(s) and other Details: Documented temperature of 100.9 yesterday or the day before ; Denies sweats or weight loss Eyes Eyes: Denies blurry vision, change in vision or diplopia ENT ENT ED: Denies ear pain, rhinorrhea or sore throat Cardiovascular Cardiovascular: Denies chest pain, orthopnea, palpitations, paroxysmal nocturnal dyspnea or racing heartbeat Respiratory/Chest Respiratory/Chest: Reports cough, dyspnea and dyspnea on exertion; Denies orthopnea or paroxysmal nocturnal dyspnea Gastrointestinal Gastrointestinal: Denies abdominal pain, constipation, diarrhea, nausea or vomiting Genitourinary Genitourinary ED: Reports dysuria; Denies hematuria or urinary frequency Musculoskeletal Musculoskeletal: Denies arthralgias, back pain, myalgias or neck pain Integumentary Denies abscess, Abrasions or rash Neurologic Neurologic: Reports weakness; Denies headache(s) or paresthesias Psychiatric Psychiatric: Reports anxiety Hematologic/Lymphatic Hematologic/Lymphatic: Denies easy bleeding or easy bruising EXAM Physical Exam Const Vital Signs: 07/30/22 14:50 07/30/22 14:55 07/30/22 14:55 Temperature 100 F H Temperature Source Temporal Pulse Rate 18 L Respiratory Rate 20 H Respiratory Effort Normal Non-Labored Respiratory Depth Normal Respiratory Pattern Normal Blood Pressure 164/95 H Blood Pressure Mean 118 Pulse Ox 95 96 Oxygen Delivery Method Room Air Room Air Room Air 07/30/22 15:14 Temperature Temperature Source Pulse Rate 110 H Respiratory Rate 18 Respiratory Effort Respiratory Depth Respiratory Pattern Normal Blood Pressure Blood Pressure Mean Pulse Ox Oxygen Delivery Method Positive well nourished and well developed General Appearance ED: well developed and NAD; Negative for pallor HEENT Reports moist mucous membranes HEENT Narrative: Ears are normal. Nares patent with slight clear drainage. Posterior pharynx out erythema or exudate. atraumatic Eyes PERRL and EOMs intact bilaterally General Eye ED: Negative for pale conjunctiva or scleral icterus Neck no lymphadenopathy, supple, no meningeal signs and no JVD Resp normal respiratory effort and No clear to auscultation bilaterally Auscultation: wheezes expiratory wheezes, scattered wheezes and throughout Cardio no murmurs Rate: tachycardic Rhythm: abnormal rhythm irregularly irregular GI non-tender, non-distended and no masses Palpation: soft Back/Spine no CVA tenderness and normal to inspection Extremity normal to inspection General Extremety ED: Negative for edema or tenderness General Extremity: Negative for edema Neuro oriented x3, CN's II-XII intact bilaterally and no sensory deficits noted [place] Coma Scale: document GCS findings Spontaneous Obeys Commands Oriented 15 Sensorium / Orientation: alert Psych mental status grossly normal Skin no wounds and No skin turgor normal General Skin Exam: Negative for jaundice or pallor Lesions: no lesions Rashes: no rashes MDM MDM MDM Narrative Medical decision making narrative: Triage note was reviewed. 2 ER notes from last week were reviewed. The physician documented that patient has poor understanding of her illness. Patient very vague and difficult to obtain history from. Went attempting to pinpoint onset temperature etc. there was difficulty. Since patient was diagnosed with pneumonia on CAT scan last week on antibiotics and reports symptoms are worse a repeat x-ray was obtained. The x-ray reveals chronic changes. It is unchanged from the x-ray that was obtained on the . Since patient is not tachypneic, not hypoxic and she recently had a CAT scan and blood work these were not repeated. She did have an EKG because her heart rate was fast. Patient was treated with DuoNeb and albuterol. Radiography Chest X-Ray - ED: 2 View and Read by ED Physician (Cardiac silhouette and size are unremarkable. There is slight hyperaeration with chronic changes. There is no infiltrate noted. Perihilar area is unremarkable. Osseous structures are unremarkable. This was in the viewed interpreted by me.) Diagnostic Testing: Clinical Impression(s) from Imaging Studies Chest X-Ray 07/30/22 15:20 IMPRESSION: No acute findings in the chest. Electronically Signed: Jean Farrell MD at 15:52 EDT Reading Location ID and State: [facility] / [place] , Service support , EKG Initial EKG: Attestation: I personally reviewed and interpreted this EKG as follows: Interpretation: Atrial Fibrillation (Rate is 111. QRS duration 132,000,000 seconds. Morphology is consistent with right bundle branch block. QT interval 360 ms. Cascade is to the left. There is no ischemic changes. There is repolarization changes because of the bundle branch block.) Differential Diagnosis Chest pain/SOB: pulmonary embolism Reason(s) PE less likely: Positive for not hypoxic, patient taking oral anticoagulants and Other (Recent CTA for PE negative.), ACS ACS: Positive for EKG without ischemia and history not suggestive of ischemia pain, pneumothorax Reason(s) pneumothorax less likely: Positive for bilateral breath sounds and [employer]IST withhout PTX, aortic dissection Reason(s) Aortic dissection less likely:: Positive for other (Recent CTA which revealed no abnormality of the aorta.) and CHF Reason(s) CHF less likely: Positive for no significant peripheral edema, no orthopnea and no evidence of fluid overload on CXR Treatment and Re-Evaluation :: There has been a delay in patient's care. The person with the patient is upset. Patient Guilherme was informed that it is busy and unfortunately there were other patients that were sicker requiring more intensive care and led to delay. Ambulatory pulse ox was obtained. Amatory pulse ox is 93%. Since patient's vitals are unremarkable other than a heart rate of 100 and and 1 on the monitor a unremarkable chest x-ray with improvement after treatment plan is to discharge to home. Since this is the third visit in 7 days and she has history of COPD will place on a burst of prednisone. 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, Acute bronchospasm, Atrial fibrillation, persistent, Anticoagulant long-term use Instructions: ED COPD Flare Prescriptions: New prednisone 20 mg tablet 60 mg PO DAILY Qty: 15 0RF No Action ascorbic acid (vitamin C) 500 mg tablet 500 mg PO QDAY apixaban 2.5 mg tablet 2.5 mg PO BID Qty: 180 3RF metoprolol tartrate 50 mg tablet 50 mg PO QHS Qty: 90 3RF Rx Instructions: at bedtime lysine 500 mg tablet 500 mg PO DAILY (DME) nebulizer See Rx Instructions .Route .MEDSUPPLY Qty: 1 0RF Rx Instructions: As directed pregabalin 25 mg capsule 50 mg PO BID albuterol sulfate [Ventolin HFA] 90 mcg/actuation HFA aerosol inhaler 2 puff INHALATION Q6H PRN (Reason: shortness of breath or wheezing) Qty: 25.5 1RF Rx Instructions: administer with spacer levofloxacin 500 mg tablet 500 mg PO DAILY Qty: 10 0RF multivitamin 1 EACH tablet 1 tab PO DAILY sennosides-docusate sodium [Stool Softener-Stimulant Laxat] 8.6-50 mg Tablet 2 tab PO BID Qty: 0 0RF acetaminophen 500 mg Tablet 1,000 mg PO Q8 Qty: 0 0RF acetaminophen-codeine 300-15 mg tablet 1 tab PO Q8H PRN (Reason: cough) Qty: 20 0RF ipratropium-albuterol 0.5 mg-3 mg(2.5 mg base)/3 mL solution for nebulization 3 ml inhalation Q4H PRN (Reason: shortness of breath or wheezing) Qty: 180 0RF (DME) inhalational spacing device Spacer See Rx Instructions .ROUTE .MEDSUPPLY Qty: 1 0RF Rx Instructions: As directed levothyroxine 137 mcg tablet 137 mcg PO QDAY Qty: 90 1RF omeprazole 40 mg capsule,delayed release(DR/EC) 40 mg PO DAILY Qty: 90 1RF atorvastatin 20 mg tablet See Rx Instructions .ROUTE .COMPLEX Qty: 90 3RF Dose Instruction: TAKE 1 TABLET DAILY Rx Instructions: TAKE 1 TABLET DAILY losartan 25 mg tablet See Rx Instructions .ROUTE .COMPLEX Qty: 90 3RF Dose Instruction: TAKE 1 TABLET DAILY Rx Instructions: TAKE 1 TABLET DAILY amlodipine 5 mg tablet See Rx Instructions .ROUTE .COMPLEX Qty: 90 3RF Dose Instruction: TAKE 1 TABLET DAILY Rx Instructions: TAKE 1 TABLET DAILY albuterol sulfate 1.25 mg/3 mL solution for nebulization 1.25 mg inhalation Q4H Qty: 90 1RF Primary Care Provider: Jamir Guardado Referrals: Jamir Guardado DO [Primary Care Provider] - 3-5 Days Disposition Disposition: Home, Self Care
[2022-07-30 19:50] VITALS: PULSE 103; RESP 20; O2SAT 93
== END 2022-07-30 19:51 | disposition home or self-care (01) ==
PROVIDERS: Emergency Provider Emergency Medicine; PCP Family Medicine; Visit Provider Emergency Medicine
DX: J44.1 Chronic obstructive pulmonary disease with (acute) exacerbation (principal); I48.19 Other persistent atrial fibrillation; Z79.01 Long term (current) use of anticoagulants; I25.10 Atherosclerotic heart disease of native coronary artery without angina pectoris; E78.00 Pure hypercholesterolemia, unspecified; I10 Essential (primary) hypertension; Z79.52 Long term (current) use of systemic steroids
CPT/HCPCS: 71046; 93005; 94640; 99283

== ENCOUNTER → 2022-11-05 | Outpatient (CLI) | payer MEDICARE, SELFPAY ==
--- NOTE | 2022-11-05 10:29 | MRI_ITS ---
INDICATION: INTRACRANIAL MENINGIOMA EXAMINATION: MRI - MR Brain WO/W Contrast TECHNIQUE: Multiplanar and multisequence MR images of the brain were obtained without and with gadolinium. IV Contrast Dosage and Agent: 15 mL Clariscan COMPARISON: 11/13/2021 FINDINGS: BRAIN PARENCHYMA: No MRI evidence of hemorrhage. Mild subcortical and periventricular white matter FLAIR hyperintensities compatible with chronic microvascular ischemic change. No evidence of acute infarct. 2.1 x 1.8 x 2.0 cm medial left posterior fossa meningioma (2.1 x 1.8 x 2.0 cm on 11/13/2021 measured in a similar fashion) with mild mass effect on the left cerebral hemisphere. No definite edema.. There is preservation of the julian/white matter interface. Normal sella turcica, pituitary gland, infundibular stalk, optic chiasm and hypothalamus. INTERNAL AUDITORY CANALS: The internal auditory canals appear normal. CSF SPACES: Ex vacuo ventricular dilation is proportionate to global cerebral volume loss. Basal cisterns are patent. VASCULAR SYSTEM: Normal flow voids in the major intracranial circulation. CALVARIUM, SKULL BASE, PARANASAL SINUSES AND MASTOID AIR CELLS: Clear. No expansile changes. ORBITS: Interval bilateral ocular lens extractions. MRI/Brain W/WO Contrast IMPRESSION: Unchanged 2.1 cm left posterior fossa meningioma. Electronically Signed: George Sharma MD at 20:38 EDT ,
[2022-11-05 11:03] LABS: CREATININE FINGERSTICK < 0.9 mg/dL (0.55-1.02); EGFR FINGERSTICK > 60.0000 mL/min (>60)
== END | disposition home or self-care (01) ==
LOC: MRI 10:11
PROVIDERS: PCP Family Medicine; Referring Provider Physician Assistant; Visit Provider Physician Assistant
DX: D32.0 Benign neoplasm of cerebral meninges (principal)
CPT/HCPCS: 70553; A9575

== ENCOUNTER → 2022-11-11 | Outpatient (CLI) | payer MEDICARE, SELFPAY ==
[2022-11-11 14:28] LABS: Bacteria 0 SEEN /hpf (None Seen); Mucous, Urine 0 SEEN /hpf (<or=2+); Red Blood Cells-Urine 0 SEEN /hpf (0-5); White Blood Cells 0 SEEN /hpf (0-5)
[2022-11-11 15:19] LABS: Color, Urine Yellow (Yellow); Glucose, Dipstick Normal (Normal); Ketone-Dipstick Negative (Negative); Leukocyte Esterase-Dipstick 100 /ul (Negative); Nitrite-Dipstick Negative (Negative); Occult Blood-Urine Negative /ul (Negative); Protein-Dipstick Negative (Negative); Urine Bilirubin Dipstick Negative (Negative); Urine Clarity Clear (Clear); Urine Urobilinogen Normal (Normal); Urine pH 6.5 (5.0 - 8.0)
[2022-11-11 15:39] LABS: Renal Epithelial Cells 0-5 SEEN /hpf (0-5); Squamous Epithelial Cells - UA 0-5 SEEN /hpf (5-10)
== END | disposition home or self-care (01) ==
PROVIDERS: PCP Family Medicine; Visit Provider Family Medicine
DX: N39.0 Urinary tract infection, site not specified (principal)
CPT/HCPCS: 81001

== ENCOUNTER → 2023-01-06 | Outpatient (CLI) | payer MEDICARE, SELFPAY ==
[2023-01-06 12:25] LABS: Color, Urine Yellow (Yellow); Glucose, Dipstick Normal (Normal); Ketone-Dipstick Negative (Negative); Leukocyte Esterase-Dipstick 500 /ul (Negative); Nitrite-Dipstick Negative (Negative); Occult Blood-Urine 150 /ul (Negative); Protein-Dipstick 15 mg/dl (Negative); Urine Bilirubin Dipstick Negative (Negative); Urine Clarity Sl. Cloudy (Clear); Urine Urobilinogen Normal (Normal)
== END | disposition home or self-care (01) ==
LOC: LABSPEC 10:58
PROVIDERS: PCP Family Medicine; Visit Provider Family Medicine
DX: N39.0 Urinary tract infection, site not specified (principal)
CPT/HCPCS: 81002

== ENCOUNTER → 2023-04-24 | Outpatient (CLI) | payer MEDICARE, SELFPAY ==
[2023-04-25 14:20] LABS: Mucous, Urine 0 SEEN /hpf (<or=2+); Red Blood Cells-Urine 0 SEEN /hpf (0-5)
[2023-04-25 14:31] LABS: Color, Urine Yellow (Yellow); Glucose, Dipstick Normal (Normal); Ketone-Dipstick Negative (Negative); Leukocyte Esterase-Dipstick 500 /ul (Negative); Nitrite-Dipstick Negative (Negative); Occult Blood-Urine Negative /ul (Negative); Protein-Dipstick Negative (Negative); Urine Bilirubin Dipstick Negative (Negative); Urine Clarity Clear (Clear); Urine Urobilinogen Normal (Normal); Urine pH 6.5 (5.0 - 8.0)
[2023-04-25 14:53] LABS: Bacteria 1+ /hpf (None Seen); Squamous Epithelial Cells - UA 5-10 SEEN /hpf (5-10); White Blood Cells 5-10 SEEN /hpf (0-5)
== END | disposition home or self-care (01) ==
PROVIDERS: PCP Family Medicine; Visit Provider Nurse Practitioner Family
DX: N39.0 Urinary tract infection, site not specified (principal); R30.0 Dysuria
CPT/HCPCS: 81001; 87086

== ENCOUNTER → 2023-05-24 | Outpatient (CLI) | payer MEDICARE, SELFPAY ==
--- NOTE | 2023-05-24 13:11 | US_ITS ---
HISTORY: nocturia. TECHNIQUE: Mistry scale and color doppler imaging was performed of the urinary bladder. 30 images. COMPARISON: None. FINDINGS: PREVOID VOLUME: 831 cc. 3 mm bladder wall thickness, within normal limits. Bilateral ureteral jets visualized. POSTVOID VOLUME: 117 cc. POSTVOID RESIDUAL: 14%%. US/Post Void Residual Bladder IMPRESSION: 117 cc post void residual in the bladder. Electronically Signed: Monik Alva MD at 16:00 EST ,
--- OUTSIDE RECORDS SUMMARY | 2023-05-24 13:31 | XMS RPT_ITS | CCD ---
Author Name Unknown Address [address] [place] [address] Organization [facility] Care Team Providers Care [employer] Name Role Phone YAYA Baumann Michelle M Unavailable Mike Brown Unavailable Unavailable PAPOURAS, ANIBAL Attending Unavailable IMCA Referring Unavailable PAPOURAS, ANIBAL Attending Unavailable CALABRETTAHELDER Referring Unavailable PAPOURAS, ANIBAL Admitting Unavailable PAPOURAS, ANIBAL Attending Unavailable PAPOURAS, ANIBAL Referring Unavailable BROWN, MELY Primary Care Unavailable PAPOURAS, ANIBAL Admitting Unavailable PAPOURAS, ANIBAL Attending Unavailable PAPOURAS, ANIBAL Referring Unavailable BROWN, MELY Primary Care Unavailable PAPOURAS, ANIBAL Attending Unavailable BROWN, MELY Referring Unavailable BROWN, MELY Primary Care Unavailable PAPOURAS, ANIBAL Attending Unavailable BROWN, MELY Referring Unavailable BROWN, MELY Primary Care Unavailable Lauren Fine Unavailable AVIVA Lucia Unavailable Unavailable Brown DO, Mely R Primary Care Provider George Malik Unavailable Medications Completed/Discontinued Medications Medication Drug Class(es) Dates Sig (Normalized) Sig (Original) acetaminophen 325 mg oral tablet (1 source) take 2 tablets by mouth every six hours as needed acetaminophen (TYLENOL) 325 mg tablet Take 650 mg by mouth every 6 hours as needed. 0 Active Problems Active Problems Problem Classification Problem Date Documented Date Episodic/Chronic Coronary atherosclerosis and other heart disease (4 sources) Atherosclerotic heart disease of knik coronary artery without angina pectoris; Translations: [Coronary arteriosclerosis] Onset: 04-22-2012 03-11-2016 Chronic Disorders of lipid metabolism (2 sources) Hyperlipidemia; Translations: [Hyperlipidemia, unspecified] Onset: 03-22-2013 03-22-2013 Chronic Esophageal disorders (2 sources) Gastroesophageal reflux disease without esophagitis; Translations: [Gastro-esophageal reflux disease without esophagitis] Onset: 03-01-2018 05-27-2018 Chronic Esophageal disorders (2 sources) Esophageal disorders Onset: 05-26-2018 Essential hypertension (2 sources) Hypertensive disorder; Translations: [Essential (primary) hypertension] Onset: 01-20-2012 01-20-2012 Chronic Heart valve disorders (4 sources) Mitral valve regurgitation; Translations: [Mitral valve disorder] Onset: 09-20-2013 10-30-2015 Chronic Immunizations and screening for infectious disease (2 sources) Contact with and (suspected) exposure to other viral communicable diseases; Translations: [Exposure to the flu] 03-18-2020 Episodic Other nutritional; endocrine; and metabolic disorders (1 source) Obese class I; Translations: [Obesity, unspecified] Onset: 02-16-2018 02-16-2018 Chronic Unclassified (6 sources) Long-term drug therapy; Translations: [Long-term (current) use of other medications] Onset: 03-22-2013 Resolved: 02-08-2015 03-22-2013 Past or Other Problems Problem Classification Problem Date Documented Date Episodic/Chronic Abdominal hernia (2 sources) Bilateral inguinal hernia; Translations: [Bilateral inguinal hernia, without obstruction or gangrene, not specified as recurrent] Onset: 01-26-2012 01-26-2012 Episodic Appendicitis and other appendiceal conditions (2 sources) Acute appendicitis; Translations: [Unspecified acute appendicitis] Onset: 01-21-2012 01-21-2012 Episodic Influenza (3 sources) Influenza Malaise and fatigue (2 sources) Fatigue; Translations: [Other fatigue] Onset: 01-10-2016 01-10-2016 Episodic Nonspecific chest pain (2 sources) Chest discomfort; Translations: [Other chest pain] Onset: 01-27-2012 01-27-2012 Episodic Other lower respiratory disease (2 sources) Dyspnea; Translations: [Shortness of breath] Onset: 04-22-2012 04-22-2012 Episodic Unclassified (4 sources) Electrocardiogram abnormal; Translations: [Pulmonary function studies abnormal] Onset: 01-20-2012 01-20-2012 Episodic Unclassified (10 sources) Body mass index (BMI) 27.0-27.9, adult; Translations: [Body mass index (BMI) 26.0-26.9, adult] Onset: 09-14-2013 Resolved: 10-30-2015 09-14-2013 Episodic Results Test Name Value Interpretation Reference Range Facil ity Vital Signs Date Time Vital Sign Value Performing Clinician Stacey friedman 09-16-2016 11:31-0400 BMI (Body Mass Index) 28.4 kg/m2 Faith Baumann PA-C [facility] Work Phone: 09-16-2016 11:31-0400 BP Diastolic 62 mm[Hg] Faith Baumann PA-C [facility] Work Phone: 09-16-2016 11:31-0400 BP Systolic 112 mm[Hg] [facility] Work Phone: 09-16-2016 11:31-0400 Pulse (Heart Rate) 66 /min Faith Baumann PA-C [facility] Work Phone: 09-16-2016 11:31-0400 Weight 79.83 kg Faith Baumann PA-C [facility] Work Phone: 03-18-2016 15:50-0500 BSA (Body Surface Area) 1.87 m2 Y[facility]A [facility] Work Phone: 03-18-2016 15:50-0500 Respiratory Rate 16 /min Faith Baumann PA-C [facility] Work Phone: 01-10-2016 13:48-0400 Body Temperature 98.78 [degF] Faith Baumann PA-C [facility] Work Phone: 01-10-2016 13:48-0400 Body Temperature 98.8 [degF] Faith Baumann PA-C [facility] Work Phone: 01-10-2016 13:48-0400 Height 167.64 cm YAYA [facility] Work Phone: 01-10-2016 13:48-0400 Weight 77.73 kg Faith Baumann PA-C [facility] Work Phone: Encounters Encounter Date Encounter Type Care Provider Facility Start: 11-13-2021 Telephone encounter Anibal Mckeon MD Work Phone: [facility] Procedures Date Procedure Procedure Detail Performing Clinician Start: 05-19-2018 Antibody screen ANIBAL MCKEON Plan of Treatment Date Care Activity Detail Author Start: 01-01-2022 Influenza vaccination INFLUENZA (#1) [facility] Start: 05-27-2021 DIABETES SCREEN DIABETES SCREEN [facility] Start: 05-03-2021 ADVANCE DIRECTIVE DISCUSSION ADVANCE DIRECTIVE DISCUSSION [facility] Start: 12-25-2020 COVID-19 VACCINE (3 - Booster for Pfizer series) COVID-19 VACCINE (3 - Booster for Pfizer series) [facility] Start: 05-13-2020 [place] influenza 2019 Novel Coronavirus (COVID-19), RICKIE ([id number]) [facility] Work Phone: Start: 03-19-2020 [place] influenza 2019 Novel Coronavirus (COVID-19), RICKIE ([id number]) [facility] Work Phone: Start: 09-01-2017 End: 03-05-2017 *Hepatic Function Panel *Hepatic Function Panel [facility] Work Phone: Start: 09-01-2017 End: 03-05-2017 Lipid panel [AGGREGATE] *Lipid Profile CC PCP [facility] Work Phone: Start: 03-10-2017 End: 03-10-2017 Appointment Appointment [facility] Work Phone: Start: 03-03-2017 End: 03-05-2017 *Hepatic Function Panel *Hepatic Function Panel [facility] Work Phone: Start: 03-03-2017 End: 03-05-2017 Lipid panel [AGGREGATE] *Lipid Profile CC PCP [facility] Work Phone: Start: 09-16-2016 End: 09-16-2016 Follow Up Appt 6 months Follow Up Appt 6 months [facility] Work Phone: Start: 09-16-2016 End: 09-16-2016 PFM PFM [facility] Work Phone: Start: 08-25-2016 End: 08-31-2016 *Hepatic Function Panel *Hepatic Function Panel [facility] Work Phone: Start: 08-25-2016 End: 08-31-2016 Lipid panel [AGGREGATE] *Lipid Profile CC PCP [facility] Work Phone: Start: 03-18-2016 End: 03-18-2016 Follow Up Appt 6 months Follow Up Appt 6 months [facility] Work Phone: Start: 03-18-2016 End: 03-18-2016 MMM MMM [facility] Work Phone: Start: 02-14-2016 End: 02-24-2016 *Hepatic Function Panel *Hepatic Function Panel [facility] Work Phone: Start: 02-14-2016 End: 02-24-2016 Lipid panel [AGGREGATE] *Lipid Profile CC PCP [facility] Work Phone: Start: 01-10-2016 End: 01-10-2016 Pulmonary stress test/simple Pulmonary stress testing; simple (eg, 6-minute walk) [facility] Work Phone: Start: 01-03-2016 End: 09-11-2016 *BMP *BMP [facility] Work Phone: Start: 12-30-2015 End: 12-30-2015 Follow Up Appt Other Follow Up Appt Other [facility] Work Phone: Start: 12-30-2015 End: 09-11-2016 Pulmonary Referral Pulmonary Referral Isaiah Griffith, [facility] [place], [address], [place], [address] [facility] Work Phone: Start: 12-23-2015 End: 12-30-2015 *CBC with Differential *CBC with Differential [facility] Work Phone: Start: 12-23-2015 End: 12-31-2015 BNP *Brain Natriuretic Peptide BNP [facility] Work Phone: Start: 11-22-2015 End: 12-10-2015 Chest x-ray X-Ray, Chest, PA & Lateral [facility] Work Phone: Start: 11-22-2015 End: 11-22-2015 Pulmonary Function Test - complete Pulmonary Function Test - complete [facility] Work Phone: Start: 10-30-2015 End: 10-30-2015 Echocardiography Echocardiogram (complete) [facility] Work Phone: Start: 10-30-2015 End: 10-30-2015 Follow Up Appt 6 weeks Follow Up Appt 6 weeks [facility] Work Phone: Start: 10-30-2015 End: 10-30-2015 MMM MMM [facility] Work Phone: Start: 10-30-2015 End: 10-30-2015 Nuclear stress test -exercise Nuclear stress test -exercise [facility] Work Phone: Start: 08-12-2015 End: 08-15-2015 *Hepatic Function Panel *Hepatic Function Panel [facility] Work Phone: Start: 08-12-2015 End: 08-16-2015 Lipid panel [AGGREGATE] *Lipid Profile CC PCP [facility] Work Phone: Start: 03-20-2015 End: 03-20-2015 Follow Up Appt 6 months Follow Up Appt 6 months [facility] Work Phone: Start: 03-20-2015 End: 03-20-2015 MMM MMM [facility] Work Phone: Start: 02-08-2015 End: 02-08-2015 *Hepatic Function Panel *Hepatic Function Panel [facility] Work Phone: Start: 02-08-2015 End: 02-08-2015 Lipid panel [AGGREGATE] *Lipid Profile CC PCP [facility] Work Phone: Start: 09-29-2014 End: 10-04-2014 *Hepatic Function Panel *Hepatic Function Panel [facility] Work Phone: Start: 09-29-2014 End: 10-04-2014 Lipid panel [AGGREGATE] *Lipid Profile CC PCP [facility] Work Phone: Start: 09-27-2014 End: 09-27-2014 Follow Up Appt 6 months Follow Up Appt 6 months [facility] Work Phone: Start: 09-27-2014 End: 09-27-2014 Follow Up Appt Other Follow Up Appt Other [facility] Work Phone: Start: 09-27-2014 End: 09-27-2014 PFM PFM [facility] Work Phone: Start: 03-21-2014 End: 03-21-2014 Follow Up Appt 6 months Follow Up Appt 6 months [facility] Work Phone: Start: 03-21-2014 End: 03-21-2014 MMM MMM [facility] Work Phone: Start: 03-03-2014 End: 03-16-2014 *Hepatic Function Panel *Hepatic Function Panel [facility] Work Phone: Start: 03-03-2014 End: 03-16-2014 Lipid panel [AGGREGATE] *Lipid Profile CC PCP [facility] Work Phone: Start: 09-14-2013 End: 09-14-2013 *BMP *BMP [facility] Work Phone: Start: 09-14-2013 End: 09-14-2013 BNP *Brain Natriuretic Peptide BNP [facility] Work Phone: Start: 09-14-2013 End: 09-14-2013 CBC W Auto Differential panel - Blood *CBC without Diff [facility] Work Phone: Start: 09-14-2013 End: 09-18-2013 Chest x-ray X-Ray, Chest, PA & Lateral [facility] Work Phone: Start: 09-14-2013 End: 09-14-2013 Ecg routine ecg w/least 12 lds w/i&r EKG (In office) [facility] Work Phone: Start: 09-14-2013 End: 09-14-2013 Echocardiography Echocardiogram (complete) [facility] Work Phone: Start: 09-14-2013 End: 09-14-2013 Follow Up Appt 6 months Follow Up Appt 6 months [facility] Work Phone: Start: 09-14-2013 End: 09-14-2013 Follow Up Appt Other Follow Up Appt Other [facility] Work Phone: Start: 09-14-2013 End: 09-14-2013 PFM PFM [facility] Work Phone: Start: 08-31-2013 End: 09-14-2013 *Hepatic Function Panel *Hepatic Function Panel [facility] Work Phone: Start: 08-31-2013 End: 09-14-2013 Lipid panel [AGGREGATE] *Lipid Profile CC PCP [facility] Work Phone: Start: 03-16-2013 End: 03-19-2013 *Hepatic Function Panel *Hepatic Function Panel [facility] Work Phone: Start: 03-16-2013 End: 09-04-2013 Follow Up Appt 6 months Follow Up Appt 6 months [facility] Work Phone: Start: 03-16-2013 End: 03-19-2013 Lipid panel [AGGREGATE] *Lipid Profile CC PCP [facility] Work Phone: Start: 03-16-2013 End: 09-04-2013 MMM MMM [facility] Work Phone: Start: 09-01-2012 End: 09-01-2012 Follow Up Appt 6 months Follow Up Appt 6 months [facility] Work Phone: Start: 09-01-2012 End: 09-01-2012 PFM PFM [facility] Work Phone: Start: 06-02-2012 End: 06-02-2012 Follow Up Appt 3 months Follow Up Appt 3 months [facility] Work Phone: Start: 06-02-2012 End: 06-02-2012 PFM PFM [facility] Work Phone: Start: 04-22-2012 End: 09-01-2012 Follow Up Appt 3 months Follow Up Appt 3 months [facility] Work Phone: Start: 02-24-2012 End: 02-10-2012 Ct thorax w/contrast material CT Chest with Contrast [facility] Work Phone: Start: 02-16-2012 End: 02-10-2012 Nuclear stress test -adenosine Nuclear stress test -adenosine [facility] Work Phone: Start: 01-27-2012 End: 02-02-2012 *BMP *BMP [facility] Work Phone: Start: 01-27-2012 End: 02-02-2012 *CBC with Differential *CBC with Differential [facility] Work Phone: Start: 01-27-2012 End: 02-02-2012 *Hepatic Function Panel *Hepatic Function Panel [facility] Work Phone: Start: 01-27-2012 End: 02-02-2012 Chest x-ray X-Ray, Chest, PA & Lateral [facility] Work Phone: Start: 01-27-2012 End: 01-27-2012 Ecg routine ecg w/least 12 lds w/i&r EKG (In office) [facility] Work Phone: Start: 01-27-2012 End: 09-01-2012 Follow Up Appt 3 months Follow Up Appt 3 months [facility] Work Phone: Start: 01-27-2012 End: 02-02-2012 INR Coag RelTime (PPP) *PT/INR [facility] Work Phone: Start: 02-20-2005 BONE DENSITY BONE DENSITY [facility] Start: 02-20-2005 PNEUMOCOCCAL: 65+ (1 - PCV) PNEUMOCOCCAL: 65+ (1 - PCV) [facility] Start: 02-20-1990 SHINGRIX VACCINE (1 of 2) SHINGRIX VACCINE (1 of 2) [facility] Start: 02-20-1959 Urine microalbumin profile DTAP,TDAP,TD (1 - Tdap) [facility] Patient Education [employer] Work Phone: [facility] Payers Date Payer Category Payer Unknown ANTHEM BLUE CROS S AND BLUE SHIELD ANTHEM MEDIBLUE O [id number] 2019-Present [phone] [address] [place] [address] O [id number] 1940 Unknown [id number] 1940 Unknown [id number] 1940 Unknown [id number] 1940 Unknown [id number] 1940 Unknown [id number] 1940 Unknown [id number] 1940 Unknown [id number] 1940 Unknown [id number] Unknown [id number] Unknown [id number] Unknown [place]/Medicare Adv plan Social History Date Type Detail Facility Start: 01-26-2012 Tobacco smoking stat us WAIS Never smoked tobacco [facility] Start: 01-26-2012 Tobacco use and exposure Smoke less tobacco non-user [facility] Start: 02-10-2021 Alcohol intake 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 She called to cancel her mother's appointment this Wednesday11/17/21. We were planning to see her and proceed with scheduling her hernia surgery that had been scheduled previously (in winter) but then was canceled by the hospital due to covid protocol. Unfortunately, this will need to be put off further now because Maria Esther fell last night and broke her hip. They will call when she is recovered and ready to proceed. documented in this encounter [facility] Progress note 04-30-2021 Note Date & Type Note Facility 04-30-2021 Note HNO ID: [id number] Author: Edwina Tovar APRN.OMAYRA Service: Anesthesiology Author Type: Nurse Practitioner Type: Progress Notes Filed: 04/30/2021 1:34 PM Note Text: No show pst 04/30/21 Surgery scheduling notified [facility] Progress note 02-11-2021 Note Date & Type Note Facility 02-11-2021 Note HNO ID: [id number] Author: Anibal Mckeon MD Service: ? Author Type: Physician Type: Progress Notes Filed: 02/11/2021 3:30 PM Note Text: Maria Esther Jules is a 80 year old female who is here for follow-up from her CT scan. She states she is feeling a little better. She has less abdominal pain. The pain she is having is on the right side just inferior to her umbilicus. She reports feeling a lump at that site. CT scan showed a small direct inguinal hernia on the left. Prior hysterectomy. Cholelithiasis. And a hiatal hernia. We knew about the hiatal hernia recurrence from surgery. Her reflux symptoms are well controlled on medication. Her biggest complaint is the pain on the right side. ALLERGIES No Known Allergies Current Outpatient Medications Medication Sig - gabapentin (NEURONTIN) 100 mg capsule Take 100 mg by mouth three times daily. - omeprazole (PRILOSEC) 40 mg capsule Take 40 mg by mouth once daily. - cyanocobalamin (VITAMIN B-12) 1,000 mcg tab Take 1,000 mcg by mouth once daily. - apixaban (ELIQUIS) 2.5 mg tab tab(s) Take 2.5 mg by mouth twice daily. - multivitamin tablet Take 1 tablet by mouth once daily. - ibuprofen (MOTRIN IB) 200 mg tablet Take 600 mg by mouth every 6 hours as needed (pt states she takes it once every other day). - amLODIPine (NORVASC) 10 mg tablet Take 5 mg by mouth once daily. - metoprolol ryan-hydrochlorothiaz 50-12.5 mg Tb24 Take by mouth twice daily. - losartan (COZAAR) 50 mg tablet Take 1 tablet by mouth twice daily. - ascorbic acid (VITAMIN C) 500 mg tablet Take 500 mg by mouth once daily. - atorvastatin (LIPITOR) 20 mg tablet Take 20 mg by mouth once daily. - Aspirin 81 mg Tab Take 81 mg by mouth. - levothyroxine (SYNTHROID) 112 mcg tablet Take 137 mcg by mouth once daily. - furosemide (LASIX) 20 mg tablet Take 20 mg by mouth once daily. (Patient not taking: Reported on 11/25/2020 ) - acetaminophen (TYLENOL) 325 mg tablet Take 650 mg by mouth every 6 hours as needed. (Patient not taking: Reported on 11/25/2020 ) - polyethylene glycol 3350 (MIRALAX) 17 gram/dose powder Take 17 g by mouth as needed (maybe once every other month). - lansoprazole (PREVACID) 30 mg capsule Take 30 mg by mouth once daily. (Patient not taking: Reported on 11/25/2020 ) No current facility-administered medications for this visit. PHYSICAL EXAM: BP 123/67 Pulse 66 Resp 18 Ht 5' 0 (1.52m) Wt 160 lb (72.6kg) BMI 31.25 kg/(m2). General Appearance: Well appearing, alert, in no acute distress, well-hydrated, well nourished.. Abdomen: Well-healed incisions. Soft. No palpable organomegaly. Just to the right and a little inferior to her umbilicus there is a palpable lump when she is standing. I am able to reduce this. This is her point of tenderness. No obvious inguinal hernia on either side on exam. I suspect she has a spit Stephane hernia at the site.. Assessment: Abdominal wall hernia (primary encounter diagnosis) Atrial fibrillation, unspecified type (hcc) Plan: ASSESSMENT/PLAN: 1. Abdominal wall hernia - ICD9: 553.20, ICD10: K43.9 (primary diagnosis) Given that it is causing her discomfort I did recommend proceeding with an abdominal wall hernia repair with mesh, possible laparoscopy. The procedure was reviewed with the patient in detail including the risks and complications inherent to the procedure. These include but are not limited to bleeding, infection, recurrence, other organ injury, anesthetic risks. The patient understood and was agreeable to proceed. 2. Atrial fibrillation, unspecified type (HCC) - ICD9: 427.31, ICD10: I48.91 Management per cardiology. Will discuss with cardiology regarding cardiac risk and perioperative management of anticoagulation I spent a total of 25 minutes on the date of the service which included preparing to see the patient, [id number] patient care, completing clinical documentation, performing a medically appropriate examination, counseling and educating the patient/family/caregiver, ordering medications, tests, or procedures, communicating with other HCPs (not separately reported), communicating results to the patient/family/caregiver and care coordination (not separately reported). Anibal Mckeon M.D., F.A.C.S. [facility] Progress note 01-13-2021 Note Date & Type Note Facility 01-13-2021 Note HNO ID: [id number] Author: Anibal Mckeon MD Service: ? Author Type: Physician Type: Progress Notes Filed: 01/13/2021 2:24 PM Note Text: Maria Esther Jules is a 80 year old female who is here for follow-up. She actually feels better than last time. She has received therapy for her torn rotator cuff and is improved with her range of motion. She is on her Eliquis for her A. fib and is actually doing well. She reports abdominal discomfort in the right and left lower quadrant abdomen. She reports a lump in the right lower quadrant as well. She states he has had that for at least a year. She also reports intermittent left lower quadrant pain. She does take a PPI which helps control her reflux symptoms. From that standpoint she states she is doing well. ALLERGIES No Known Allergies Current Outpatient Medications Medication Sig - gabapentin (NEURONTIN) 100 mg capsule Take 100 mg by mouth three times daily. - omeprazole (PRILOSEC) 40 mg capsule Take 40 mg by mouth once daily. - cyanocobalamin (VITAMIN B-12) 1,000 mcg tab Take 1,000 mcg by mouth once daily. - apixaban (ELIQUIS) 2.5 mg tab tab(s) Take 2.5 mg by mouth twice daily. - multivitamin tablet Take 1 tablet by mouth once daily. - ibuprofen (MOTRIN IB) 200 mg tablet Take 600 mg by mouth every 6 hours as needed (pt states she takes it once every other day). - amLODIPine (NORVASC) 10 mg tablet Take 5 mg by mouth once daily. - metoprolol ryan-hydrochlorothiaz 50-12.5 mg Tb24 Take by mouth twice daily. - losartan (COZAAR) 50 mg tablet Take 1 tablet by mouth twice daily. - ascorbic acid (VITAMIN C) 500 mg tablet Take 500 mg by mouth once daily. - atorvastatin (LIPITOR) 20 mg tablet Take 20 mg by mouth once daily. - Aspirin 81 mg Tab Take 81 mg by mouth. - levothyroxine (SYNTHROID) 112 mcg tablet Take 137 mcg by mouth once daily. - iv contrast (will be provided with radiology test) CT ABD/PEL -Inject, intravenously, once for 1 dose.No IV access, insert saline lock prior to the beginning of sedation, infusion, injection of imaging exam. Discontinue saline lock post exam. If Pt. has a central line or IVAD, may access for administration according to line specific nursing protocol. Once exam is complete flush line and de-access according to line specific nursing protocol in the CT contrast administration guidelines link. - enteric contrast (will be provided with radiology test) For CT ABD/PEL W IVCON Routine order Administer, As Directed One Time Only, via Oral, Rectal, both Oral and Rectal, Enteric Tube, Stoma or Indwelling Catheter, Enteric Contrast as designated per enteric contrast guidelines - furosemide (LASIX) 20 mg tablet Take 20 mg by mouth once daily. (Patient not taking: Reported on 11/25/2020 ) - acetaminophen (TYLENOL) 325 mg tablet Take 650 mg by mouth every 6 hours as needed. (Patient not taking: Reported on 11/25/2020 ) - polyethylene glycol 3350 (MIRALAX) 17 gram/dose powder Take 17 g by mouth as needed (maybe once every other month). - lansoprazole (PREVACID) 30 mg capsule Take 30 mg by mouth once daily. (Patient not taking: Reported on 11/25/2020 ) No current facility-administered medications for this visit. PHYSICAL EXAM: BP 136/77 Ht 5' 0 (1.52m) Wt 160 lb (72.6kg) BMI 31.25 kg/(m2). General Appearance: Well appearing, alert, in no acute distress, well-hydrated, well nourished.. Abdomen: Reducible abdominal wall hernia in the right lower abdomen. Tender to palpation in the left lower quadrant. No palpable masses organomegaly. Assessment: Ventral hernia without obstruction or gangrene (primary encounter diagnosis) Llq pain Plan: ASSESSMENT/PLAN: 1. Ventral hernia without obstruction or gangrene - ICD9: 553.20, ICD10: K43.9 (primary diagnosis) Given her continued pain in the left lower quadrant and the hernia on exam, I am going to obtain a CT scan to further evaluate the integrity of the abdominal wall and other etiologies for her pain. She will follow-up after the CT scan. - CT ABD/PEL W IVCON - CREATININE BLD 2. LLQ pain - ICD9: 789.04, ICD10: R10.32 - CT ABD/PEL W IVCON - CREATININE BLD I spent a total of 15 minutes on the date of the service which included preparing to see the patient, [id number] patient care, completing clinical documentation, performing a medically appropriate examination, counseling and educating the patient/family/caregiver, ordering medications, tests, or procedures and communicating with other HCPs (not separately reported). Anibal Mckeon M.D., F.A.C.S. [facility] Progress note 11-26-2020 Note Date & Type Note Facility 11-26-2020 Note HNO ID: [id number] Author: Anibal Mckeon MD Service: ? Author Type: Physician Type: Progress Notes Filed: 11/26/2020 9:06 AM Note Text: Maria Esther Jules is a 80 year old female who is here for evaluation. She does have a recurrent hiatal hernia and is on a PPI. With her PPI her symptoms are well controlled. She is complaining of some left-sided pain periodically and right lower quadrant pain periodically. However, she recently had a rotator cuff surgery repair and has her arm in a sling. She is undergoing physical therapy. She was also diagnosed with atrial fibrillation and is on Eliquis. ALLERGIES No Known Allergies Current Outpatient Medications Medication Sig - omeprazole (PRILOSEC) 40 mg capsule Take 40 mg by mouth once daily. - cyanocobalamin (VITAMIN B-12) 1,000 mcg tab Take 1,000 mcg by mouth once daily. - apixaban (ELIQUIS) 2.5 mg tab tab(s) Take 2.5 mg by mouth twice daily. - multivitamin tablet Take 1 tablet by mouth once daily. - amLODIPine (NORVASC) 10 mg tablet Take 5 mg by mouth once daily. - metoprolol ryan-hydrochlorothiaz 50-12.5 mg Tb24 Take by mouth twice daily. - ascorbic acid (VITAMIN C) 500 mg tablet Take 500 mg by mouth once daily. - atorvastatin (LIPITOR) 20 mg tablet Take 20 mg by mouth once daily. - Aspirin 81 mg Tab Take 81 mg by mouth. - levothyroxine (SYNTHROID) 112 mcg tablet Take 137 mcg by mouth once daily. - furosemide (LASIX) 20 mg tablet Take 20 mg by mouth once daily. (Patient not taking: Reported on 11/25/2020 ) - acetaminophen (TYLENOL) 325 mg tablet Take 650 mg by mouth every 6 hours as needed. (Patient not taking: Reported on 11/25/2020 ) - ibuprofen (MOTRIN IB) 200 mg tablet Take 600 mg by mouth every 6 hours as needed (pt states she takes it once every other day). - polyethylene glycol 3350 (MIRALAX) 17 gram/dose powder Take 17 g by mouth as needed (maybe once every other month). - losartan (COZAAR) 50 mg tablet Take 1 tablet by mouth twice daily. - lansoprazole (PREVACID) 30 mg capsule Take 30 mg by mouth once daily. (Patient not taking: Reported on 11/25/2020 ) No current facility-administered medications for this visit. PHYSICAL EXAM: BP 142/86 Pulse 77 Resp 20 Ht 5' 0 (1.52m) Wt 160 lb (72.6kg) BMI 31.25 kg/(m2). General Appearance: Appears frail with her arm in a sling. Limited range of motion with her arm. Abdomen: Normal abdominal exam, Abdomen soft, non-tender. Bowel sounds normal. No masses, organomegaly. . Assessment: Gastroesophageal reflux disease without esophagitis (primary encounter diagnosis) Atrial fibrillation, unspecified type (hcc) Plan: ASSESSMENT/PLAN: 1. Gastroesophageal reflux disease without esophagitis - ICD9: 530.81, ICD10: K21.9 (primary diagnosis) -Continue PPI for now. I would like to get a CT scan given her discomfort however she is unable to raise her arm and her arm will cause significant artifact. She is close to completing her therapy and goes to see her orthopedic surgeon in 4 weeks. We will have her follow-up in 6 weeks to see how she is doing. 2. Atrial fibrillation, unspecified type (HCC) - ICD9: 427.31, ICD10: I48.91 Per cardiology I spent a total of 20 minutes on the date of the service which included preparing to see the patient, [id number] patient care, completing clinical documentation, performing a medically appropriate examination and counseling and educating the patient/family/caregiver. Anibal Mckeon M.D., F.A.C.S. 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 Advance Directive(s) 05/26/2018 9:52 AM Advance Directive(s) 05/12/2018 9:34 AM Advance Directive(s) 02/16/2018 12:06 PM Additional Source Comments INFORMATION SOURCE (unrecogn ized section and content) DATE CREATED AUTHOR AUTHOR'S ORGANIZ ATION 11/19/2021 [facility] Source Comments (unrecognize d section and content) In the event this informatio n is protected by the Federal Confidentiality of Alcohol and Drug Abuse Patient Records regulations: The Federal rules restrict any use of the information to criminally investigate or prosecute any alcohol or drug abuse patient.[facility] Reason for Visit (unrecogniz ed section and content) Care Teams (unrecognized sec tion and content) FOR RECORDS PERTAINING TO PATIENTS WHO ARE OR HAVE BEEN ENROLLED IN A CHEMICAL DEPENDENCY/SUBSTANCEABUSE PROGRAM, SOME INFORMATION MAY BE OMITTED. This clinical summary was aggregated from multiple sources. Caution should be exercised in using it in the provision of clinical care. This summary normalizes information from multiple sources, and as a consequence, information in this document may materially change the coding, format and clinical context of patient data. In addition, data may be omitted in some cases. CLINICAL DECISIONS SHOULD BE BASED ON THE PRIMARY CLINICAL RECORDS. [facility] [employer] [facility]. provides no warranty or guarantee of the accuracy or completeness of information in this document.
== END | disposition home or self-care (01) ==
PROVIDERS: PCP Family Medicine; Referring Provider Family Medicine; Visit Provider Family Medicine
DX: R33.9 Retention of urine, unspecified (principal)
CPT/HCPCS: 51798

== ENCOUNTER → 2023-06-08 | Outpatient (CLI) | payer MEDICARE, SELFPAY ==
--- OUTSIDE RECORDS SUMMARY | 2023-06-08 06:59 | XMS RPT_ITS | CCD ---
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 Name Role Phone YAYA Baumann Michelle M [...] disease (4 sources) Atherosclerotic heart disease of ambler coronary artery without angina pectoris; Translations: [Coronary [...] Date Time Vital Sign Value Performing Clinician tSacey friedman 09-16-2016 11:31-0400 BMI (Body Mass Index) 28.4 kg/m2 Faith Baumann PA-C [facility] Work Phone: 09-16-2016 11:31-0400 BP Diastolic 62 mm[Hg] Faith Baumann PA-C [facility] Work Phone: 09-16-2016 11:31-0400 BP Systolic 112 mm[Hg] YAYA [facility] Work Phone: 09-16-2016 11:31-0400 Pulse (Heart Rate) 66 /min Faith Baumann PA-C [facility] Work Phone: 09-16-2016 11:31-0400 Weight 79.83 kg Faith Baumann PA-C [facility] Work Phone: 03-18-2016 15:50-0500 BSA (Body Surface Area) 1.87 m2 YAYA [facility] Work Phone: 03-18-2016 15:50-0500 Respiratory Rate 16 /min Faith Baumann PA-C [facility] Work Phone: 01-10-2016 13:48-0400 Body Temperature 98.78 [degF] Faith Baumann PA-C [facility] Work Phone: 01-10-2016 13:48-0400 Body Temperature 98.8 [degF] Faith Baumann PA-C [facility] Work Phone: 01-10-2016 13:48-0400 Height 167.64 cm YAYA [facility] Work Phone: 01-10-2016 13:48-0400 Weight 77.73 kg Faith Baumann PA-C [facility] Work Phone: Encounters Encounter Date Encounter Type Care Provider Facility Start: 11-13-2021 Telephone encounter Anibal Mckeon MD Work Phone: [facility] Procedures Date Procedure Procedure Detail Performing Clinician Start: 05-19-2018 Antibody screen ANIBAL MCKEON Plan of Treatment Date Care Activity Detail Author Start: 01-01-2022 Influenza vaccination INFLUENZA (#1) [facility] Start: 05-27-2021 DIABETES SCREEN DIABETES SCREEN [facility] Start: 05-03-2021 ADVANCE DIRECTIVE DISCUSSION ADVANCE DIRECTIVE DISCUSSION [facility] Start: 12-25-2020 COVID-19 VACCINE (3 - Booster for Pfizer series) COVID-19 VACCINE (3 - Booster for Pfizer series) [facility] Start: 05-13-2020 [place] influenza 2019 Novel Coronavirus (COVID-19), RICKIE ([id number]) [facility]; [facility] Work Phone: Start: 03-19-2020 [place] influenza 2019 Novel Coronavirus (COVID-19), RICKIE ([id number]) [facility] Work Phone: Start: 09-01-2017 End: 03-05-2017 *Hepatic Function Panel *Hepatic Function Panel [facility] Work Phone: Start: 09-01-2017 End: 03-05-2017 Lipid panel [AGGREGATE] *Lipid Profile CC PCP [facility] Work Phone: Start: 03-10-2017 End: 03-10-2017 Appointment Appointment [facility] Work Phone: Start: 03-03-2017 End: 03-05-2017 *Hepatic Function Panel *Hepatic Function Panel [facility] Work Phone: Start: 03-03-2017 End: 03-05-2017 Lipid panel [AGGREGATE] *Lipid Profile CC PCP [facility] Work Phone: Start: 09-16-2016 End: 09-16-2016 Follow Up Appt 6 months Follow Up Appt 6 months [facility] Work Phone: Start: 09-16-2016 End: 09-16-2016 PFM PFM [facility] Work Phone: Start: 08-25-2016 End: 08-31-2016 *Hepatic Function Panel *Hepatic Function Panel [facility] Work Phone: Start: 08-25-2016 End: 08-31-2016 Lipid panel [AGGREGATE] *Lipid Profile CC PCP [facility] Work Phone: Start: 03-18-2016 End: 03-18-2016 Follow Up Appt 6 months Follow Up Appt 6 months [facility] Work Phone: Start: 03-18-2016 End: 03-18-2016 MMM MMM [facility] Work Phone: Start: 02-14-2016 End: 02-24-2016 *Hepatic Function Panel *Hepatic Function Panel [facility] Work Phone: Start: 02-14-2016 End: 02-24-2016 Lipid panel [AGGREGATE] *Lipid Profile CC PCP [facility] Work Phone: Start: 01-10-2016 End: 01-10-2016 Pulmonary stress test/simple Pulmonary stress testing; simple (eg, 6-minute walk) [facility] Work Phone: Start: 01-03-2016 End: 09-11-2016 *BMP *BMP [facility] Work Phone: Start: 12-30-2015 End: 12-30-2015 Follow Up Appt Other Follow Up Appt Other [facility] Work Phone: Start: 12-30-2015 End: 09-11-2016 Pulmonary Referral Pulmonary Referral Isaiah Griffith, [facility] [place], [address], [place], [address] [facility] Work Phone: Start: 12-23-2015 End: 12-30-2015 *CBC with Differential *CBC with Differential [facility] Work Phone: Start: 12-23-2015 End: 12-31-2015 BNP *Brain Natriuretic Peptide BNP [facility] Work Phone: Start: 11-22-2015 End: 12-10-2015 Chest x-ray X-Ray, Chest, PA & Lateral [facility] Work Phone: Start: 11-22-2015 End: 11-22-2015 Pulmonary Function Test - complete Pulmonary Function Test - complete [facility] Work Phone: Start: 10-30-2015 End: 10-30-2015 Echocardiography Echocardiogram (complete) [facility] Work Phone: Start: 10-30-2015 End: 10-30-2015 Follow Up Appt 6 weeks Follow Up Appt 6 weeks [facility] Work Phone: Start: 10-30-2015 End: 10-30-2015 MMM MMM [facility] Work Phone: Start: 10-30-2015 End: 10-30-2015 Nuclear stress test -exercise Nuclear stress test -exercise [facility] Work Phone: Start: 08-12-2015 End: 08-15-2015 *Hepatic Function Panel *Hepatic Function Panel [facility] Work Phone: Start: 08-12-2015 End: 08-16-2015 Lipid panel [AGGREGATE] *Lipid Profile CC PCP [facility] Work Phone: Start: 03-20-2015 End: 03-20-2015 Follow Up Appt 6 months Follow Up Appt 6 months [facility] Work Phone: Start: 03-20-2015 End: 03-20-2015 MMM MMM [facility] Work Phone: Start: 02-08-2015 End: 02-08-2015 *Hepatic Function Panel *Hepatic Function Panel [facility] Work Phone: Start: 02-08-2015 End: 02-08-2015 Lipid panel [AGGREGATE] *Lipid Profile CC PCP [facility] Work Phone: Start: 09-29-2014 End: 10-04-2014 *Hepatic Function Panel *Hepatic Function Panel [facility] Work Phone: Start: 09-29-2014 End: 10-04-2014 Lipid panel [AGGREGATE] *Lipid Profile CC PCP [facility] Work Phone: Start: 09-27-2014 End: 09-27-2014 Follow Up Appt 6 months Follow Up Appt 6 months [facility] Work Phone: Start: 09-27-2014 End: 09-27-2014 Follow Up Appt Other Follow Up Appt Other [facility] Work Phone: Start: 09-27-2014 End: 09-27-2014 PFM PFM [facility] Work Phone: Start: 03-21-2014 End: 03-21-2014 Follow Up Appt 6 months Follow Up Appt 6 months [facility] Work Phone: Start: 03-21-2014 End: 03-21-2014 MMM MMM [facility] Work Phone: Start: 03-03-2014 End: 03-16-2014 *Hepatic Function Panel *Hepatic Function Panel [facility] Work Phone: Start: 03-03-2014 End: 03-16-2014 Lipid panel [AGGREGATE] *Lipid Profile CC PCP [facility] Work Phone: Start: 09-14-2013 End: 09-14-2013 *BMP *BMP [facility] Work Phone: Start: 09-14-2013 End: 09-14-2013 BNP *Brain Natriuretic Peptide BNP [facility] Work Phone: Start: 09-14-2013 End: 09-14-2013 CBC W Auto Differential panel - Blood *CBC without Diff [facility] Work Phone: Start: 09-14-2013 End: 09-18-2013 Chest x-ray X-Ray, Chest, PA & Lateral [facility] Work Phone: Start: 09-14-2013 End: 09-14-2013 Ecg routine ecg w/least 12 lds w/i&r EKG (In office) [facility] Work Phone: Start: 09-14-2013 End: 09-14-2013 Echocardiography Echocardiogram (complete) [facility] Work Phone: Start: 09-14-2013 End: 09-14-2013 Follow Up Appt 6 months Follow Up Appt 6 months [facility] Work Phone: Start: 09-14-2013 End: 09-14-2013 Follow Up Appt Other Follow Up Appt Other [facility] Work Phone: Start: 09-14-2013 End: 09-14-2013 PFM PFM [facility] Work Phone: Start: 08-31-2013 End: 09-14-2013 *Hepatic Function Panel *Hepatic Function Panel [facility] Work Phone: Start: 08-31-2013 End: 09-14-2013 Lipid panel [AGGREGATE] *Lipid Profile CC PCP [facility] Work Phone: Start: 03-16-2013 End: 03-19-2013 *Hepatic Function Panel *Hepatic Function Panel [facility] Work Phone: Start: 03-16-2013 End: 09-04-2013 Follow Up Appt 6 months Follow Up Appt 6 months [facility] Work Phone: Start: 03-16-2013 End: 03-19-2013 Lipid panel [AGGREGATE] *Lipid Profile CC PCP [facility] Work Phone: Start: 03-16-2013 End: 09-04-2013 MMM MMM [facility] Work Phone: Start: 09-01-2012 End: 09-01-2012 Follow Up Appt 6 months Follow Up Appt 6 months [facility] Work Phone: Start: 09-01-2012 End: 09-01-2012 PFM PFM [facility] Work Phone: Start: 06-02-2012 End: 06-02-2012 Follow Up Appt 3 months Follow Up Appt 3 months [facility] Work Phone: Start: 06-02-2012 End: 06-02-2012 PFM PFM [facility] Work Phone: Start: 04-22-2012 End: 09-01-2012 Follow Up Appt 3 months Follow Up Appt 3 months [facility] Work Phone: Start: 02-24-2012 End: 02-10-2012 Ct thorax w/contrast material CT Chest with Contrast [facility] Work Phone: Start: 02-16-2012 End: 02-10-2012 Nuclear stress test -adenosine Nuclear stress test -adenosine [facility] Work Phone: Start: 01-27-2012 End: 02-02-2012 *BMP *BMP [facility] Work Phone: Start: 01-27-2012 End: 02-02-2012 *CBC with Differential *CBC with Differential [facility] Work Phone: Start: 01-27-2012 End: 02-02-2012 *Hepatic Function Panel *Hepatic Function Panel [facility] [employer] [facility] [facility] Work Phone: Start: 01-27-2012 End: 02-02-2012 Chest x-ray X-Ray, Chest, PA & Lateral [facility] Work Phone: Start: 01-27-2012 End: 01-27-2012 Ecg routine ecg w/least 12 lds w/i&r EKG (In office) [facility] Work Phone: Start: 01-27-2012 End: 09-01-2012 Follow Up Appt 3 months Follow Up Appt 3 months [facility] Work Phone: Start: 01-27-2012 End: 02-02-2012 INR Coag RelTime (PPP) *PT/INR [facility] Work Phone: Start: 02-20-2005 BONE DENSITY BONE DENSITY [facility] Start: 02-20-2005 PNEUMOCOCCAL: 65+ (1 - PCV) PNEUMOCOCCAL: 65+ (1 - PCV) [facility] Start: 02-20-1990 SHINGRIX VACCINE (1 of 2) SHINGRIX VACCINE (1 of 2) [facility] Start: 02-20-1959 Urine microalbumin profile DTAP,TDAP,TD (1 - Tdap) [facility] Patient Education [facility] Work Phone: [facility] Payers Date Payer Category Payer Unknown ANTHEM BLUE CROS S AND BLUE SHIELD ANTHEM MEDIBLUE O [id number] 2019-Present [phone] [address] [place] [address] O [id number] 1940 Unknown [id number] 1940 Unknown [id number] 1940 Unknown [id number] 1940 Unknown [id number] 1940 Unknown [id number] 1940 Unknown [id number] 1940 Unknown [id number] 1940 Unknown [id number] Unknown [id number] Unknown [id number] Unknown [place]/Medicare Adv plan Social History Date Type Detail Facility Start: 01-26-2012 Tobacco smoking stat us INIS Never smoked tobacco [facility] Start: 01-26-2012 Tobacco use and exposure Smoke less tobacco non-user [facility] Start: 02-10-2021 Alcohol intake 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 documented in this encounter [facility] Progress note 04-30-2021 Note Date & Type Note Facility 04-30-2021 Note HNO ID: [id number] Author: Edwina Tovar APRN.OMAYRA Service: Anesthesiology Author Type: Nurse Practitioner Type: Progress Notes Filed: 04/30/2021 1:34 PM Note Text: No show pst 04/30/21 Surgery scheduling notified [facility] Progress note 02-11-2021 Note Date & Type Note Facility 02-11-2021 Note HNO ID: [id number] Author: Anibal Mckeon MD Service: ? Author [...] which included preparing to see the patient, [id number] patient care, completing clinical documentation, performing a medically appropriate examination, counseling and educating the patient/family/caregiver, ordering medications, tests, or procedures, communicating with other HCPs (not separately reported), communicating results to the patient/family/caregiver and care coordination (not separately reported). Anibal Mckeon M.D., F.A.C.S. [facility] Progress note 01-13-2021 Note Date & Type Note Facility 01-13-2021 Note HNO ID: [id number] Author: Anibal Mckeon MD Service: ? Author [...] which included preparing to see the patient, [id number] patient care, completing clinical documentation, performing a medically appropriate examination, counseling and educating the patient/family/caregiver, ordering medications, tests, or procedures and communicating with other HCPs (not separately reported). Anibal Mckeon M.D., F.A.C.S. [facility] Progress note 11-26-2020 Note Date & Type Note Facility 11-26-2020 Note HNO ID: [id number] Author: Anibal Mckeon MD Service: ? Author [...] which included preparing to see the patient, [id number] patient care, completing clinical documentation, performing a medically appropriate examination and counseling and educating the patient/family/caregiver. Anibal Mckeon M.D., F.A.C.S. 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 Advance Directive(s) 05/26/2018 9:52 AM Advance Directive(s) 05/12/2018 9:34 AM Advance Directive(s) 02/16/2018 12:06 PM Additional Source Comments INFORMATION SOURCE (unrecogn ized section and content) DATE CREATED AUTHOR AUTHOR'S ORGANIZ ATION 11/19/2021 [facility] Source Comments (unrecognize d section and content) In the event this informatio n is protected by the Federal Confidentiality of Alcohol and Drug Abuse Patient Records regulations: The Federal rules restrict any use of the information to criminally investigate or prosecute any alcohol or drug abuse patient.[facility] Reason for Visit (unrecogniz ed section and [...] BE BASED ON THE PRIMARY CLINICAL RECORDS. [facility] [employer] [facility]. provides no warranty or guarantee of the accuracy or completeness of information in this document.
[2023-06-08 07:11] LABS: Hematocrit 41.1 % (37-47); Hemoglobin 13.4 g/dL (12.0-15.0); Mean Corp Hgb Conc 32.6 g/dL (32-36); Mean Corpuscular Hgb 30.8 pg (27.0-32.0); Mean Corpuscular Volume 94.5 fL (81-99); Mean Platelet Vol. 9.6 fl (6.2-12.0); Platelet Count 231 K/mm3 (150-450); RBC Distribution Width CV 13.2 % (11.6-14.6); RBC Distribution Width SD 45.8 fl (35.1-43.9); Red Blood Count 4.35 M/mm3 (4.2-5.4); White Blood Count 6.6 K/mm3 (4.4-11.0)
[2023-06-08 08:13] LABS: ALB/GLOB Ratio 0.9 RATIO (0.9-2.4); AST(SGOT) 27 U/L (15-37); Alanine Aminotransfer ALT/SGPT 26 U/L (13-56); Albumin, Serum 3.5 g/dL (3.2-5.0); Alkaline Phosphatase 94 U/L (45-117); Anion Gap 4 (5-15); BUN 12 mg/dL (7-18); BUN/Creat Ratio 14.3 RATIO (10-20); Chloride 101 mmol/L (98-107); Cholesterol 118 mg/dL (200); Creatinine, Serum 0.84 mg/dL (0.55-1.02); EST Glomerular Filtration Rate 69 mL/min (>60); Est Glom Filt Rate - Afr Amer 83 mL/min (>60); Globulin 3.9 g/dL (2.2-4.2); Glucose 97 mg/dL (74-106); High Density Lipoprotein 76 mg/dL; Potassium 4.3 mmol/L (3.5-5.1); Protein, Total 7.4 g/dL (6.4-8.2); Sodium Level 134 mmol/L (136-145); Triglycerides 52 mg/dL; Very Low Density Lipoprotein 10 mg/dL (5-40)
== END | disposition home or self-care (01) ==
LOC: LAB 06:57
PROVIDERS: PCP Family Medicine; Referring Provider Internal Medicine Cardiovascular Disease; Visit Provider Internal Medicine Cardiovascular Disease
DX: I48.91 Unspecified atrial fibrillation (principal); E78.00 Pure hypercholesterolemia, unspecified; Z79.01 Long term (current) use of anticoagulants
CPT/HCPCS: 36415; 80053; 80061; 85027

== ENCOUNTER → 2023-10-13 | Outpatient (CLI) | payer MEDICARE, SELFPAY ==
[2023-10-13 15:12] LABS: Mucous, Urine 0 SEEN /hpf (<or=2+); Red Blood Cells-Urine 0 SEEN /hpf (0-5)
[2023-10-13 17:00] LABS: Color, Urine Yellow (Yellow); Glucose, Dipstick Normal (Normal); Ketone-Dipstick Negative (Negative); Leukocyte Esterase-Dipstick 500 /ul (Negative); Nitrite-Dipstick Negative (Negative); Occult Blood-Urine Negative /ul (Negative); Protein-Dipstick Negative (Negative); Specific Gravity, Urine 1.005 (1.002-1.030); Urine Bilirubin Dipstick Negative (Negative); Urine Clarity Clear (Clear); Urine Urobilinogen Normal (Normal); Urine pH 6.5 (5.0 - 8.0)
[2023-10-13 17:09] LABS: Bacteria 1+ /hpf (None Seen); Squamous Epithelial Cells - UA 0-5 SEEN /hpf (5-10); White Blood Cells 10-25 SEEN /hpf (0-5)
== END | disposition home or self-care (01) ==
LOC: LABSPEC 15:11
PROVIDERS: PCP Family Medicine; Visit Provider Family Medicine
DX: R33.9 Retention of urine, unspecified (principal)
CPT/HCPCS: 81001

== ENCOUNTER → 2023-12-01 | Outpatient (CLI) | payer MEDICARE, SELFPAY ==
--- NOTE | 2023-12-01 16:08 | MRI_ITS ---
STUDY: MRI BRAIN WITH AND WITHOUT CONTRAST REASON FOR EXAM: Female, 83 years old. MENINGIOMA F/U TECHNIQUE: Standardized multiplanar fat and water weighted pulse sequences were obtained. IV 14ml clariscan was administered for the contrast portion of the examination. COMPARISON: November 05, 2022 FINDINGS: Mild atrophy and moderate periventricular white matter disease most likely chronic small vessel ischemic changes without mass effect or restricted diffusion. 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 Normal thalami. There is no extra-axial fluid accumulation. Normal flow voids within the major intracranial circulation suggesting patency by spin echo criteria. Normal venous enhancement. There is no enhancing intra-axial or extra-axial abnormality. Normal sella turcica, pituitary gland, infundibular stalk, optic chiasm and hypothalamus. Normal tectal plate and pineal gland. Normal midbrain, and medulla. Normal cerebellum. Normal basal cisterns. Normal bilateral temporal bones. Normal bilateral internal auditory canals. Enhancing left retrocerebellar dural-based mass measuring 2.1 x 1.83 cm consistent with meningioma unchanged in size since previous exam Postsurgical changes of the orbits. Normal visualized paranasal sinuses. Normal calvarium and skull base. Normal visualized soft tissue structures. Normal visualized upper cervical spine. MRI/Brain W/WO Contrast IMPRESSION: Stable appearing left left retrocerebellar meningioma unchanged in size since previous study Moderate periventricular white matter ischemic changes without evidence for acute infarct Electronically Signed: Mt Watt MD at 22:44 EDT ,
[2023-12-01 16:53] LABS: CREATININE FINGERSTICK < 1.0 mg/dL (0.55-1.02); EGFR FINGERSTICK > 60.0000 mL/min (>60)
== END | disposition home or self-care (01) ==
LOC: MRI 16:05
PROVIDERS: PCP Family Medicine; Referring Provider Physician Assistant; Visit Provider Physician Assistant
DX: Z01.812 Encounter for preprocedural laboratory examination (principal); D32.0 Benign neoplasm of cerebral meninges
CPT/HCPCS: 70553; A9575

== ENCOUNTER → 2024-02-09 | Outpatient (CLI) | payer MEDICARE, SELFPAY | END | disposition home or self-care (01) | PROVIDERS: PCP Family Medicine; Referring Provider Family Medicine; Visit Provider Family Medicine | DX: N39.0 Urinary tract infection, site not specified (principal) | CPT/HCPCS: 87077; 87086; 87088; 87186 ==

== ENCOUNTER → 2024-03-01 | Outpatient (CLI) | payer MEDICARE, SELFPAY | END | disposition home or self-care (01) | LOC: LABSPEC 10:03 | PROVIDERS: PCP Family Medicine; Referring Provider Nurse Practitioner; Visit Provider Nurse Practitioner | DX: N39.0 Urinary tract infection, site not specified (principal) | CPT/HCPCS: 87077; 87086; 87088; 87186 ==

== ENCOUNTER → 2024-03-21 | Outpatient (CLI) | payer MEDICARE, SELFPAY | END | disposition home or self-care (01) | LOC: LABSPEC 09:37 | PROVIDERS: PCP Family Medicine; Visit Provider Family Medicine | DX: N39.0 Urinary tract infection, site not specified (principal) | CPT/HCPCS: 87077; 87086; 87088; 87186 ==

== ENCOUNTER → 2024-05-01 | Outpatient (CLI) | payer MEDICARE, SELFPAY ==
[2024-05-01 13:20] LABS: T4 Free Direct 1.25 ng/dL (0.76-1.46)
== END | disposition home or self-care (01) ==
LOC: BIMLAB 09:18
PROVIDERS: PCP Family Medicine; Referring Provider Physician Assistant; Visit Provider Physician Assistant
DX: E03.9 Hypothyroidism, unspecified (principal)
CPT/HCPCS: 36415; 84439; 84443

== ENCOUNTER → 2024-05-08 | Outpatient (CLI) | payer MEDICARE, SELFPAY | END | disposition home or self-care (01) | LOC: LABSPEC 11:16 | PROVIDERS: PCP Family Medicine; Referring Provider Nurse Practitioner Family; Visit Provider Nurse Practitioner Family | DX: R35.0 Frequency of micturition (principal) | CPT/HCPCS: 87086; 87088 ==

== ENCOUNTER → 2024-06-14 | Outpatient (CLI) | payer MEDICARE, SELFPAY ==
[2024-06-14 14:15] LABS: Bacteria 0 SEEN /hpf (None Seen); Mucous, Urine 0 SEEN /hpf (<or=2+)
[2024-06-14 15:17] LABS: Color, Urine Yellow (Yellow); Glucose, Dipstick Normal (Normal); Ketone-Dipstick Negative (Negative); Leukocyte Esterase-Dipstick 500 /ul (Negative); Nitrite-Dipstick Negative (Negative); Occult Blood-Urine Negative /ul (Negative); Protein-Dipstick 15 mg/dl (Negative); Urine Bilirubin Dipstick Negative (Negative); Urine Clarity Clear (Clear); Urine Urobilinogen Normal (Normal)
[2024-06-14 15:29] LABS: Absolute Lymphocyte Count 2.41 X10^3/uL (0.83-4.51); Absolute Neutrophil Count 3.6 X10^3/uL (2.0-7.7); Basophil# 0.04 X10^3/uL; Basophil% 0.6 % (0-1); Eosinophil# 0.13 X10^3/uL; Eosinophils% 1.9 % (0-5); Hemoglobin 12.6 g/dL (12.0-15.0); Lymphocyte # 2.41 X10^3/ul (0.83-4.51); Lymphocyte % 35.5 % (19-41); Mean Corp Hgb Conc 32.3 g/dL (32-36); Mean Corpuscular Hgb 30.8 pg (27.0-32.0); Mean Corpuscular Volume 95.4 fL (81-99); Mean Platelet Vol. 10.9 fl (6.2-12.0); Monocyte# 0.55 X10^3/uL; Monocyte% 8.1 % (0-10); NRBC Flagged by Analyzer 0 % (0-5); Neutrophil # 3.64 X10^3/uL (2.7-7.7); Neutrophil % 53.6 % (47-70); Platelet Count 179 K/mm3 (150-450); RBC Distribution Width CV 13.2 % (11.6-14.6); RBC Distribution Width SD 46.5 fl (35.1-43.9); Red Blood Count 4.09 M/mm3 (4.2-5.4); White Blood Count 6.8 K/mm3 (4.4-11.0)
[2024-06-14 16:03] LABS: ALB/GLOB Ratio 1.1 RATIO (0.9-2.4); AST(SGOT) 18 U/L (15-37); Alanine Aminotransfer ALT/SGPT 18 U/L (13-56); Albumin, Serum 3.6 g/dL (3.2-5.0); Alkaline Phosphatase 57 U/L (45-117); Anion Gap 4 (5-15); BUN 8 mg/dL (7-18); BUN/Creat Ratio 13.4 RATIO (10-20); Calcium,Total 8.8 mg/dL (8.5-10.1); Chloride 103 mmol/L (98-107); EST Glomerular Filtration Rate 102 mL/min (>60); Est Glom Filt Rate - Afr Amer 123 mL/min (>60); Ferritin 112 ng/mL (8-252); Globulin 3.2 g/dL (2.2-4.2); Glucose 105 mg/dL (74-106); Potassium 4.2 mmol/L (3.5-5.1); Protein, Total 6.8 g/dL (6.4-8.2); Sodium Level 136 mmol/L (136-145)
[2024-06-14 16:09] LABS: Squamous Epithelial Cells - UA 0-5 SEEN /hpf (5-10); White Blood Cells 0-5 SEEN /hpf (0-5)
== END | disposition home or self-care (01) ==
LOC: BIMLAB 13:57
PROVIDERS: PCP Family Medicine; Referring Provider Family Medicine; Visit Provider Family Medicine
DX: G25.81 Restless legs syndrome (principal); I48.20 Chronic atrial fibrillation, unspecified; I10 Essential (primary) hypertension; R39.9 Unspecified symptoms and signs involving the genitourinary system
CPT/HCPCS: 36415; 80053; 81001; 82728; 85025

== ENCOUNTER → 2024-08-24 | Outpatient (CLI) | payer MEDICARE, SELFPAY ==
--- NOTE | 2024-08-24 14:54 | RAD_ITS ---
PROCEDURE: Right knee radiographs, three views 08/24/2024 REASON FOR EXAM: Right knee pain TECHNIQUE: Three views of the right knee were obtained. COMPARISON: None available FINDINGS: Three views of the right knee were obtained. The bones are osteopenic. No acute fracture or dislocation of the right knee. There is a small suprapatellar effusion. Moderate degenerative changes of the medial and patellofemoral compartments. Severe degenerative change of the lateral compartment. RAD/Knee 3 Views IMPRESSION: Osteopenia. No acute bony abnormality of the right knee. Moderate/severe tricompartmental degenerative changes of the right knee, greate st involving the lateral compartment. Small suprapatellar effusion. Reading Location: [facility]
== END | disposition home or self-care (01) ==
LOC: MTRAD 14:53
PROVIDERS: PCP Family Medicine; Referring Provider Family Medicine; Visit Provider Family Medicine
DX: M25.561 Pain in right knee (principal)
CPT/HCPCS: 73562

== ENCOUNTER 2024-09-19 15:21 | Emergency (ER) | payer MEDICARE, SELFPAY ==
[2024-09-19 15:22] VITALS: BP 202/89; PULSE 63; RESP 18; TEMP 36.8; O2SAT 96
[2024-09-19 15:25] VITALS: BMI 28.8
--- NOTE | 2024-09-19 15:57 | VDLE_ITS ---
Reason For Study Reason For Study: RLE Pain RIGHT LEFT GSV is normal. CFV is compressible, spontaneous, phasic, competent, CFV is compressible, spontaneous, phasic, competent and demonstrates normal augmentation. and demonstrates normal augmentation. FV is compressible, spontaneous, phasic, competent and demonstrates normal augmentation. POP V is compressible, spontaneous, phasic, competent and demonstrates normal augmentation. T/P Trunk is compressible. PTV is compressible. RT PerV is compressible. Procedure This is a venous duplex using B-mode, color flow and spectral Doppler. Exam performed in department. The exam was diagnostic. A preliminary report was called and/or faxed to Dr. Fine. VL/Venous Duplex US, Unilateral Interpretation Summary Deep veins of the right lower extremity are patent and compressible segmentally . There is no evidence of right lower extremity deep vein thrombosis. Valvular competence appears intact within the p roximal deep venous system on the right . The right great saphenous vein appears patent and compressible segmentally. The left common femoral vein is patent and compressible . Ordering Physician: Uvaldo Fine Referring Physician: Jamir Guardado Performed By: Deshawn Norman RVT
[2024-09-19 19:18] VITALS: BP 199/99; PULSE 90; RESP 16; TEMP 36.6; O2SAT 99
--- NOTE | 2024-09-19 19:22 | ED.VIS.LOWEX ---
HPI History of Present Illness Chief Complaint: Lower Extremity Injury Informant: patient and family Narrative Narrative: Sent from urgent care for right lower extremity swelling rule out DVT. She has family on and off swelling. No history of DVT. Urgent care family waxing waning memory gets frequent UTIs. States testing positive for UTI given prescription for Macrobid. On arrival blood pressure 202/90 systolic. Family reports blood pressure up-and-down may see cardiology tomorrow. She missed this morning's dose. States that very brief headache earlier is resolved. No chest pain no shortness of breath. Prior similar symptoms: Yes PFSH [facility] Medical History Acute bronchitis UTI (urinary tract infection) A-fib PAF (paroxysmal atrial fibrillation) Valvular heart disease Peripheral neuropathy Neuropathy Hyponatremia Hypothyroidism Nonrheumatic aortic (valve) insufficiency Nonrheumatic mitral (valve) insufficiency Non-rheumatic tricuspid valve insufficiency Pure hypercholesterolemia Hernia Abnormal electrocardiogram Mitral insufficiency, acute Abnormal pulmonary function test Chest discomfort Dyspnea (~01/30/21) HLD (hyperlipidemia) Atherosclerotic heart disease of [place] coronary artery without angina pectoris Essential (primary) hypertension Home Medications ?Medication ?Instructions ?Recorded ?Last Taken ?Type ascorbic acid (vitamin C) 500 mg 500 mg PO QDAY supplement 09/14/17 Unknown History tablet multivitamin 1 tab PO DAILY supplement 06/29/18 Unknown History inhalational spacing device #1 ea 11/07/20 Unknown Rx acetaminophen 500 mg tablet 1,000 mg (2 x 500 mg) PO Q8 #0 tabs 11/18/21 Unknown Rx sennosides 8.6 mg-docusate sodium 2 tab PO BID #0 tabs 11/18/21 Unknown Rx 50 mg tablet (Stool Softener-Stimulant Laxative) lysine 500 mg tablet 500 mg PO DAILY 02/12/22 Unknown History nebulizer #1 ea 02/12/22 Unknown Rx ipratropium 0.5 mg-albuterol 3 mg 3 ml inhalation Q4H PRN shortness 07/31/22 Unknown Rx (2.5 mg base)/3 mL nebulization of breath or wheezing #180 mL soln ferrous sulfate 325 mg (65 mg 325 mg PO DAILY 02/17/23 Unknown History iron) tablet Kenalog 40 mg/mL suspension for 20 mg (0.5 mL) Tendon Sheath Inj. 06/17/23 Unknown Clinic injection (triamcinolone acetonide) ONCE trigger finger #0.5 mL pregabalin 25 mg capsule 150 mg PO BID 01/31/24 Unknown History sulfacetamide sodium 10 % eye drops 1 drp ophthalmic (eye) Q4H #15 mL 02/09/24 Unknown Rx albuterol sulfate 90 mcg/actuation See Rx Instructions .Route 04/17/24 Unknown Rx aerosol inhaler .COMPLEX #36 grams atorvastatin 20 mg tablet See Rx Instructions .Route 05/01/24 Unknown Rx .COMPLEX #90 tabs omeprazole 40 mg capsule,delayed 40 mg PO DAILY #90 caps 05/01/24 Unknown Rx release losartan 50 mg tablet 50 mg PO DAILY #90 tabs 06/14/24 Unknown Rx methenamine hippurate 1 gram tablet 1 g PO ONCE 06/28/24 Unknown History apixaban 2.5 mg tablet 2.5 mg PO BID #180 tabs 06/29/24 Unknown Rx metoprolol tartrate 25 mg tablet 25 mg PO .AM #90 tabs 07/17/24 Unknown Rx metoprolol tartrate 50 mg tablet 50 mg PO QHS heart/BP #90 tabs 07/17/24 Unknown Rx levothyroxine 137 mcg tablet 137 mcg PO DAILY #90 TABLETS 07/18/24 Unknown Rx (Synthroid) albuterol sulfate 1.25 mg/3 mL 1.25 mg (3 mL) inhalation Q4H #90 07/20/24 Unknown Rx solution for nebulization mL prednisone 10 mg tablet 10 mg PO DIRECTED #15 tabs 08/02/24 Unknown Rx nitrofurantoin 100 mg PO Q12H 5 days #10 caps 09/19/24 Unknown Rx monohydrate/macrocrystals 100 mg capsule (Macrobid) Allergy/AdvReac Type Severity Reaction Status Date / Time No Known Allergies Allergy Verified 09/19/24 15:22 Family History Mother CVA (cerebral vascular accident) Brother CAD (coronary artery disease) Sister CAD (coronary artery disease) Myocardial infarction Son CAD (coronary artery disease) Surgical History History of cataract surgery History of hip surgery S/P right rotator cuff repair History of bladder suspension procedure History of thyroidectomy History of hysterectomy History of tubal ligation History of appendectomy History of hernia repair History of repair of hiatal hernia Social History household members: significant other Smoking Status: Never smoker alcohol intake: never substance use type: does not use caffeine: No what type of physical activity do you participate in: other details: [facility] ROS ROS ED Constitutional Constitutional ED: Denies fever(s) Cardiovascular Cardiovascular: Reports other Details: Leg swelling ; Denies chest pain Respiratory/Chest Respiratory/Chest: Denies cough Gastrointestinal Gastrointestinal: Denies diarrhea or vomiting Musculoskeletal Musculoskeletal: Denies none Integumentary Denies rash or wounds Neurologic Neurologic: Denies weakness EXAM Physical Exam Const Vital Signs: 09/19/24 15:22 09/19/24 19:18 Temperature 98.3 F 98 F Temperature Source Oral Pulse Rate 63 90 Respiratory Rate 18 16 Blood Pressure 202/89 H 199/99 H Blood Pressure Mean 126 132 Pulse Ox 96 99 Oxygen Delivery Method Room Air Positive well nourished and well developed General Appearance ED: well developed HEENT normocephalic and atraumatic Eyes General Eye ED: Yes normal appearance of both eyes Neck full ROM Resp normal respiratory effort and normal air movement Cardio regular rate and regular rhythm GI soft to palpation Extremity full ROM Extremity Narrative: 1+ lower extremity edema. No calf tenderness no medial thigh tenderness. Pulses intact distally. Neuro oriented x3 Skin no rashes or lesions noted and no wounds MDM MDM MDM Narrative Medical decision making narrative: Interventions / MDM: Differential diagnosis: Peripheral edema, elevated blood pressure with history of hypertension Diagnosis considered but do not suspect: DVT however ultrasound negative. No clinical hypertensive emergency. My EKG interpretation: N/A Imaging independently reviewed and interpreted by myself: Right lower extremity ultrasound: Negative for DVT discussed with arcade game technician. External documents reviewed: N/A Test considered but not ordered:N/A ED course: Busy department, ultrasound ordered through triage results were negative. Patient blood pressure elevated 202/90. No clinical hypertensive urgency symptoms. Blood pressure up-and-down and she missed this morning's dose. Family and patient reports they will go home take her medications. Have a cardiology appointment tomorrow for her blood pressure. This was rechecked there and medications adjustments as needed. All questions were answered. Re-evaluation: stable Disposition discussed with patient/family/significant other: Patient and family Case discussed with consulting clinician: N/A This note was generated with [employer] dictation software. It may contain incorrect words, spelling, and punctuation that were not noted in checking the note before signing. Discharge Plan Triage Chief Complaint: Lower Extremity Injury ED Provider: Uvaldo Fine Dx/Rx/DC Orders Clinical Impression: Right leg swelling, UTI symptoms, Elevated blood pressure reading in office with diagnosis of hypertension Instructions: Controlling High Blood Pressure, ED Peripheral Edema, Unilateral Prescriptions: No Action ascorbic acid (vitamin C) 500 mg tablet 500 mg PO QDAY lysine 500 mg tablet 500 mg PO DAILY (DME) nebulizer See Rx Instructions .Route .MEDSUPPLY Qty: 1 0RF Rx Instructions: As directed pregabalin 25 mg capsule 150 mg PO BID ferrous sulfate 325 mg (65 mg iron) tablet 325 mg PO DAILY triamcinolone acetonide [Kenalog] 40 mg/mL suspension 20 mg Tendon Sheath Inj. ONCE Qty: 0.5 0RF sulfacetamide sodium 10 % drops 1 drp ophthalmic (eye) Q4H Qty: 15 1RF losartan 50 mg tablet 50 mg PO DAILY Qty: 90 2RF methenamine hippurate 1 gram tablet 1 g PO ONCE prednisone 10 mg tablet 10 mg PO DIRECTED Qty: 15 0RF Rx Instructions: One tablet three times a day times three days, then BID nitrofurantoin monohyd/m-cryst [Macrobid] 100 mg capsule 100 mg PO Q12H 5 Days Qty: 10 0RF Rx Instructions: must administer with a meal/food multivitamin 1 EACH tablet 1 tab PO DAILY sennosides-docusate sodium [Stool Softener-Stimulant Laxat] 8.6-50 mg Tablet 2 tab PO BID Qty: 0 0RF acetaminophen 500 mg Tablet 1,000 mg PO Q8 Qty: 0 0RF (DME) inhalational spacing device Spacer See Rx Instructions .ROUTE .MEDSUPPLY Qty: 1 0RF Rx Instructions: As directed ipratropium-albuterol 0.5 mg-3 mg(2.5 mg base)/3 mL solution for nebulization 3 ml inhalation Q4H PRN (Reason: shortness of breath or wheezing) Qty: 180 0RF albuterol sulfate 90 mcg/actuation HFA aerosol inhaler See Rx Instructions .ROUTE .COMPLEX Qty: 36 0RF Dose Instruction: INHALE 2 PUFFS BY MOUTH EVERY 6 HOURS NEEDED FOR SHORTNESS OF BREATH OR WHEEZING. ADMINISTER WITH SPACER. Rx Instructions: INHALE 2 PUFFS BY MOUTH EVERY 6 HOURS NEEDED FOR SHORTNESS OF BREATH OR WHEEZING. ADMINISTER WITH SPACER. atorvastatin 20 mg tablet See Rx Instructions .ROUTE .COMPLEX Qty: 90 3RF Dose Instruction: TAKE 1 TABLET DAILY Rx Instructions: TAKE 1 TABLET DAILY omeprazole 40 mg capsule,delayed release(DR/EC) 40 mg PO DAILY Qty: 90 1RF apixaban 2.5 mg tablet 2.5 mg PO BID Qty: 180 4RF metoprolol tartrate 50 mg tablet 50 mg PO QHS Qty: 90 3RF Rx Instructions: 25mg in the AM and 50mg in the PM metoprolol tartrate 25 mg tablet 25 mg PO .AM Qty: 90 3RF Rx Instructions: 25mg in the AM and 50mg in the PM levothyroxine [Synthroid] 137 mcg tablet 137 mcg PO DAILY Qty: 90 1RF albuterol sulfate 1.25 mg/3 mL solution for nebulization 1.25 mg inhalation Q4H Qty: 90 1RF Primary Care Provider: Jamir Guardado Referrals: Jamir Guardado, DO [Primary Care Provider] - Activity Restrictions/Additional Instructions: Ultrasound right leg negative for blood clots. Blood pressure elevated 202/90. You are asymptomatic. Take your blood pressure medicine keep your follow-up with your cardiology team tomorrow for reevaluation and medication adjustments. Take your antibiotic prescribed by express care today for urinary tract infection. Print Language: Norwegian Disposition Disposition: Home, Self Care Discharge Date/Time: 09/19/24 19:21
== END 2024-09-19 19:21 | disposition home or self-care (01) ==
PROVIDERS: Emergency Provider Emergency Medicine; PCP Family Medicine; Visit Provider Emergency Medicine
DX: M79.89 Other specified soft tissue disorders (principal); I10 Essential (primary) hypertension; I25.10 Atherosclerotic heart disease of native coronary artery without angina pectoris; R39.89 Other symptoms and signs involving the genitourinary system; E78.00 Pure hypercholesterolemia, unspecified
CPT/HCPCS: 93971; 99282

== ENCOUNTER → 2024-09-19 | Outpatient (CLI) | payer MEDICARE, SELFPAY | END | disposition home or self-care (01) | LOC: LABSPEC 15:15 | PROVIDERS: PCP Family Medicine; Visit Provider Physician Assistant | DX: R82.90 Unspecified abnormal findings in urine (principal) | CPT/HCPCS: 87077; 87086; 87088; 87186 ==

== ENCOUNTER → 2024-10-11 | Outpatient (CLI) | payer MEDICARE, SELFPAY ==
[2024-10-11 14:06] LABS: Bacteria 0 SEEN /hpf (None Seen); Mucous, Urine 0 SEEN /hpf (<or=2+)
[2024-10-11 16:06] LABS: Color, Urine Straw (Yellow); Glucose, Dipstick Normal (Normal); Ketone-Dipstick Negative (Negative); Leukocyte Esterase-Dipstick 100 /ul (Negative); Nitrite-Dipstick Negative (Negative); Occult Blood-Urine Negative /ul (Negative); Protein-Dipstick 15 mg/dl (Negative); Urine Bilirubin Dipstick Negative (Negative); Urine Clarity Clear (Clear); Urine Urobilinogen Normal (Normal); Urine pH 6.5 (5.0 - 8.0)
[2024-10-11 17:18] LABS: Squamous Epithelial Cells - UA 0-5 SEEN /hpf (5-10); Transitional Epithelial - Ur 0-5 SEEN /hpf (0-5)
[2024-10-11 17:19] LABS: Red Blood Cells-Urine 0-5 SEEN /hpf (0-5); White Blood Cells 5-10 SEEN /hpf (0-5)
== END | disposition home or self-care (01) ==
LOC: LABSPEC 13:30
PROVIDERS: PCP Family Medicine; Referring Provider Family Medicine; Visit Provider Family Medicine
DX: R39.9 Unspecified symptoms and signs involving the genitourinary system (principal)
CPT/HCPCS: 81001

== ENCOUNTER → 2024-10-23 | Outpatient (CLI) | payer MEDICARE, SELFPAY | END | disposition home or self-care (01) | LOC: LABSPEC 07:40 | PROVIDERS: PCP Family Medicine; Visit Provider Nurse Practitioner Family | DX: R35.0 Frequency of micturition (principal) | CPT/HCPCS: 87086; 87088 ==

== ENCOUNTER 2024-11-12 08:16 | Emergency (ER) | payer MEDICARE, SELFPAY ==
[2024-11-12 08:17] VITALS: BP 167/79; PULSE 61; RESP 16; TEMP 36.5; O2SAT 96; BMI 29.4
--- NOTE | 2024-11-12 08:28 | EDS_ITS ---
HPI History of Present Illness Chief Complaint: Complaint Informant: patient Onset/Context/Timing Onset: Month(s) (3) Context: Gradual Onset Timing: Continuous Quality: Swelling Location: Lower extremities Worsened by: Nothing Relieved by: Nothing Narrative Narrative: Patient presents with lower extremity swelling and urinary tract infection symptoms. Patient states that this has been off and on for the past 3 months. Daughter is concerned that she may have problems with her kidneys. Daughter states patient has been seeing her primary care physician for this. Patient denies any fevers or chills. Patient admits to some urinary frequency. Patient denies any back or flank pain. Patient denies any nausea or vomiting. Patient does admit to some shortness of breath at times. [facility] Medical History Acute bronchitis UTI (urinary tract infection) A-fib PAF (paroxysmal atrial fibrillation) Valvular heart disease Peripheral neuropathy Neuropathy Hyponatremia Hypothyroidism Nonrheumatic aortic (valve) insufficiency Nonrheumatic mitral (valve) insufficiency Non-rheumatic tricuspid valve insufficiency Pure hypercholesterolemia Hernia Abnormal electrocardiogram Mitral insufficiency, acute Abnormal pulmonary function test Chest discomfort Dyspnea (~01/30/21) HLD (hyperlipidemia) Atherosclerotic heart disease of [place] coronary artery without angina pectoris Essential (primary) hypertension Home Medications ?Medication ?Instructions ?Recorded ?Last Taken ?Type ascorbic acid (vitamin C) 500 mg 500 mg PO QDAY supple ment 09/14/17 Unknown History tablet multivitamin 1 tab PO DAILY supplement Unknown History inhalational spacing device #1 ea 11/07/20 Unknown Rx acetaminophen 500 mg tablet 1,000 mg (2 x 500 mg) PO Q 8 #0 tabs 11/18/21 Unknown Rx sennosides 8.6 mg-docusate sodium 2 tab PO BID #0 tabs 11/18/21 Unknown Rx 50 mg tablet (Stool Softener-Stimulant Laxative) lysine 500 mg tablet 500 mg PO DAILY 02/12/22 Unk nown History nebulizer #1 ea 02/12/22 Unknown Rx ipratropium 0.5 mg-albuterol 3 mg 3 ml inhalation Q4H PRN shortness 07/31/22 Unknown Rx (2.5 mg base)/3 mL nebulization of breath or wheezing #180 mL soln ferrous sulfate 325 mg (65 mg 325 mg PO DAILY 02/17/23 Unknown History iron) tablet Kenalog 40 mg/mL suspension for 20 mg (0.5 mL) Tendon Sheath Inj. 06/17/23 Unknown Clinic injection (triamcinolone acetonide) ONCE trigger finge r #0.5 mL pregabalin 25 mg capsule 150 mg PO BID 01/31/24 Unkno wn History albuterol sulfate 90 mcg/actuation See Rx Instructions .Route 04/17/24 Unknown Rx aerosol inhaler .COMPLEX #36 grams atorvastatin 20 mg tablet See Rx Instructions .Route 1 Unknown Rx .COMPLEX #90 tabs losartan 50 mg tablet 50 mg PO DAILY #90 tabs 06/03 06/27 Unknown Rx apixaban 2.5 mg tablet 2.5 mg PO BID #180 tabs 06/04 11/24 Unknown Rx levothyroxine 137 mcg tablet 137 mcg PO DAILY #90 TABL ETS 07/18/24 Unknown Rx (Synthroid) albuterol sulfate 1.25 mg/3 mL 1.25 mg (3 mL) inhalati on Q4H #90 07/20/24 Unknown Rx solution for nebulization mL omeprazole 40 mg capsule,delayed 40 mg PO DAILY #90 ca ps 10/24/24 Unknown Rx release carvedilol 25 mg tablet 25 mg PO BID #180 tabs 11/08 Unknown Rx furosemide 40 mg tablet (Lasix) 40 mg PO Q OTHER DAY # 45 tabs 11/08/24 Unknown Rx Allergy/AdvReac Type Severity Reaction Status Date / Time No Known Allergies Allergy Verified 11/12/24 08:19 Family History Mother CVA (cerebral vascular accident) Brother CAD (coronary artery disease) Sister CAD (coronary artery disease) Myocardial infarction Son CAD (coronary artery disease) Surgical History History of cataract surgery History of hip surgery S/P right rotator cuff repair History of bladder suspension procedure History of thyroidectomy History of hysterectomy History of tubal ligation
--- NOTE | 2024-11-12 08:28 | EX.ED.DYSGE1 ---
HPI History of Present Illness Chief Complaint: Complaint Informant: patient Onset/Context/Timing Onset: Month(s) (3) Context: Gradual Onset Timing: Continuous Quality: Swelling Location: Lower extremities Worsened by: Nothing Relieved by: Nothing Narrative Narrative: Patient presents with lower extremity swelling and urinary tract infection symptoms. Patient states that this has been off and on for the past 3 months. Daughter is concerned that she may have problems with her kidneys. Daughter states patient has been seeing her primary care physician for this. Patient denies any fevers or chills. Patient admits to some urinary frequency. Patient denies any back or flank pain. Patient denies any nausea or vomiting. Patient does admit to some shortness of breath at times. [facility] Medical History Acute bronchitis UTI (urinary tract infection) A-fib PAF (paroxysmal atrial fibrillation) Valvular heart disease Peripheral neuropathy Neuropathy Hyponatremia Hypothyroidism Nonrheumatic aortic (valve) insufficiency Nonrheumatic mitral (valve) insufficiency Non-rheumatic tricuspid valve insufficiency Pure hypercholesterolemia Hernia Abnormal electrocardiogram Mitral insufficiency, acute Abnormal pulmonary function test Chest discomfort Dyspnea (~01/30/21) HLD (hyperlipidemia) Atherosclerotic heart disease of [place] coronary artery without angina pectoris Essential (primary) hypertension Home Medications ?Medication ?Instructions ?Recorded ?Last Taken ?Type ascorbic acid (vitamin C) 500 mg 500 mg PO QDAY supplement 09/14/17 Unknown History tablet multivitamin 1 tab PO DAILY supplement 06/29/18 Unknown History inhalational spacing device #1 ea 11/07/20 Unknown Rx acetaminophen 500 mg tablet 1,000 mg (2 x 500 mg) PO Q8 #0 tabs 11/18/21 Unknown Rx sennosides 8.6 mg-docusate sodium 2 tab PO BID #0 tabs 11/18/21 Unknown Rx 50 mg tablet (Stool Softener-Stimulant Laxative) lysine 500 mg tablet 500 mg PO DAILY 02/12/22 Unknown History nebulizer #1 ea 02/12/22 Unknown Rx ipratropium 0.5 mg-albuterol 3 mg 3 ml inhalation Q4H PRN shortness 07/31/22 Unknown Rx (2.5 mg base)/3 mL nebulization of breath or wheezing #180 mL soln ferrous sulfate 325 mg (65 mg 325 mg PO DAILY 10/18/23 Unknown History iron) tablet Kenalog 40 mg/mL suspension for 20 mg (0.5 mL) Tendon Sheath Inj. 06/17/23 Unknown Clinic injection (triamcinolone acetonide) ONCE trigger finger #0.5 mL pregabalin 25 mg capsule 150 mg PO BID 01/31/24 Unknown History albuterol sulfate 90 mcg/actuation See Rx Instructions .Route 04/17/24 Unknown Rx aerosol inhaler .COMPLEX #36 grams atorvastatin 20 mg tablet See Rx Instructions .Route 05/01/24 Unknown Rx .COMPLEX #90 tabs losartan 50 mg tablet 50 mg PO DAILY #90 tabs 06/14/24 Unknown Rx apixaban 2.5 mg tablet 2.5 mg PO BID #180 tabs 06/29/24 Unknown Rx levothyroxine 137 mcg tablet 137 mcg PO DAILY #90 TABLETS 07/18/24 Unknown Rx (Synthroid) albuterol sulfate 1.25 mg/3 mL 1.25 mg (3 mL) inhalation Q4H #90 07/20/24 Unknown Rx solution for nebulization mL omeprazole 40 mg capsule,delayed 40 mg PO DAILY #90 caps 10/24/24 Unknown Rx release carvedilol 25 mg tablet 25 mg PO BID #180 tabs 11/08/24 Unknown Rx furosemide 40 mg tablet (Lasix) 40 mg PO Q OTHER DAY #45 tabs 11/08/24 Unknown Rx Allergy/AdvReac Type Severity Reaction Status Date / Time No Known Allergies Allergy Verified 11/12/24 08:19 Family History Mother CVA (cerebral vascular accident) Brother CAD (coronary artery disease) Sister CAD (coronary artery disease) Myocardial infarction Son CAD (coronary artery disease) Surgical History History of cataract surgery History of hip surgery S/P right rotator cuff repair History of bladder suspension procedure History of thyroidectomy History of hysterectomy History of tubal ligation History of appendectomy History of hernia repair History of repair of hiatal hernia Social History household members: significant other Smoking Status: Never smoker alcohol intake: never substance use type: does not use caffeine: No what type of physical activity do you participate in: other details: [employer] ED Constitutional Constitutional ED: Denies chills or fever(s) Eyes Eyes: Denies blurry vision or change in vision ENT ENT ED: Reports rhinorrhea; Denies sore throat Cardiovascular Cardiovascular: Denies chest pain or palpitations Respiratory/Chest Respiratory/Chest: Reports dyspnea; Denies cough Gastrointestinal Gastrointestinal: Denies nausea or vomiting Genitourinary Genitourinary ED: Denies dysuria or hematuria Musculoskeletal Musculoskeletal: Denies back pain or neck pain Integumentary Denies abscess or rash Neurologic Neurologic: Reports headache(s); Denies weakness Allergic/Immunologic Allergic/Immunologic ED: Denies mouth swelling or urticaria EXAM Physical Exam Const Vital Signs: 11/12/24 08:17 11/12/24 08:17 Temperature 97.7 F L Temperature Source Oral Pulse Rate 61 Respiratory Rate 16 Respiratory Effort Normal Respiratory Pattern Normal Blood Pressure 167/79 H Blood Pressure Mean 108 Pulse Ox 96 Oxygen Delivery Method Room Air Positive well nourished and well developed Constitutional Narrative: BMI is 29.4. General Appearance ED: well developed and NAD HEENT Reports moist mucous membranes Neck supple and no JVD Resp normal respiratory effort and clear to auscultation bilaterally Cardio regular rate and regular rhythm GI non-tender and non-distended Palpation: soft Extremity Extremity Narrative: There is 2+ edema of the lower extremities bilaterally. General Extremety ED: Yes edema; Negative for tenderness General Extremity: edema Neuro oriented x3, CN's II-XII intact bilaterally and no sensory deficits noted Psych mental status grossly normal MDM MDM MDM Narrative Medical decision making narrative: Differential diagnosis includes acute kidney injury, electrolyte abnormality, urinary tract infection, congestive heart failure, and viral upper respiratory infection. CBC will be obtained to assess for leukocytosis and anemia. Basic metabolic profile will be obtained to assess for electrolyte abnormality and renal function. Urinalysis will be obtained to assess for urinary tract infection and hematuria. Chest x-ray will be obtained to assess for pneumonia and congestive heart failure. History & Record Review Additional record(s) reviewed:: Prior ED visit and Prior labs Lab Data Attestation: I reviewed the patient's lab results. Lab results narrative: CBC was reviewed and was essentially within normal limits. Basic metabolic profile was reviewed and was within normal limits. Urinalysis was reviewed. Leukocyte esterase was 100. There are 0-5 white blood cells and 0 bacteria noted. Labs: Laboratory Results - last 24 hr 11/12/24 11/12/24 09:03 09:05 WBC 4.2 L RBC 4.14 L Hgb 12.7 Hct 38.0 MCV 91.8 MCH 30.7 MCHC 33.4 RDW Std Deviation 42.5 RDW Coeff of [place] 12.6 Plt Count 173 MPV 10.6 Immature Gran % (Auto) 0.200 Neut % (Auto) 58.3 Lymph % (Auto) 30.2 [place] % (Auto) 8.6 Eos % (Auto) 1.7 Baso % (Auto) 1.0 Absolute Neuts (auto) 2.5 Absolute Lymphs (auto) 1.27 Nucleated RBC % 0 Sodium 133 Potassium 3.9 Chloride 96 L Carbon Dioxide 26.0 Anion Gap 10 BUN 5 Creatinine 0.64 L Estim Creat Clear Calc 48.98 L Est GFR (MDRD) Non-Af 87 BUN/Creatinine Ratio 8.3 L Glucose 95 Calcium 8.8 Urine Color Yellow Urine Clarity Clear Urine pH 6.0 Ur Specific [place] 1.010 Urine Protein 15 H Urine Glucose (UA) Normal Urine Ketones Negative Urine Occult Blood Negative Urine Nitrite Negative Urine Bilirubin Negative Urine Urobilinogen Normal Ur Leukocyte Esterase 100 H Urine RBC 0 SEEN Urine WBC 0-5 SEEN Ur Squamous Epith Cells 0-5 SEEN Urine Bacteria 0 SEEN Urine Mucus 0 SEEN Radiography Chest X-Ray - ED: 2 View, Read by ED Physician, Read by Radiologist, No Acute Disease and Cardiomegaly Diagnostic Testing: Clinical Impression(s) from Imaging Studies Chest X-Ray 11/12/24 09:20 IMPRESSION: Stable severe cardiomegaly with probable trace pleural effusions. Reading Location: [id number] and lateral chest x-ray was obtained. There are 2 views. On my independent interpretation, lung gu are clear. There is cardiomegaly. Bony thorax is normal. There is no acute process noted. Radiologist also interpreted the x-ray and agrees. Treatment and Re-Evaluation :: Patient was advised of her findings. Patient was instructed to keep her legs elevated. Patient was instructed to follow-up with her primary care physician in 5 to 7 days. Patient understood and was agreeable with plan. All questions were answered. Discharge Plan Triage Chief Complaint: Complaint Other Complaint: Edema ED Provider: Jovon Holloway Dx/Rx/DC Orders Clinical Impression: Peripheral edema, Essential (primary) hypertension Instructions: ED Peripheral Edema, Bilateral Prescriptions: No Action ascorbic acid (vitamin C) 500 mg tablet 500 mg PO QDAY lysine 500 mg tablet 500 mg PO DAILY (DME) nebulizer See Rx Instructions .Route .MEDSUPPLY Qty: 1 0RF Rx Instructions: As directed pregabalin 25 mg capsule 150 mg PO BID ferrous sulfate 325 mg (65 mg iron) tablet 325 mg PO DAILY triamcinolone acetonide [Kenalog] 40 mg/mL suspension 20 mg Tendon Sheath Inj. ONCE Qty: 0.5 0RF losartan 50 mg tablet 50 mg PO DAILY Qty: 90 2RF multivitamin 1 EACH tablet 1 tab PO DAILY sennosides-docusate sodium [Stool Softener-Stimulant Laxat] 8.6-50 mg Tablet 2 tab PO BID Qty: 0 0RF acetaminophen 500 mg Tablet 1,000 mg PO Q8 Qty: 0 0RF (DME) inhalational spacing device Spacer See Rx Instructions .ROUTE .MEDSUPPLY Qty: 1 0RF Rx Instructions: As directed ipratropium-albuterol 0.5 mg-3 mg(2.5 mg base)/3 mL solution for nebulization 3 ml inhalation Q4H PRN (Reason: shortness of breath or wheezing) Qty: 180 0RF albuterol sulfate 90 mcg/actuation HFA aerosol inhaler See Rx Instructions .ROUTE .COMPLEX Qty: 36 0RF Dose Instruction: INHALE 2 PUFFS BY MOUTH EVERY 6 HOURS NEEDED FOR SHORTNESS OF BREATH OR WHEEZING. ADMINISTER WITH SPACER. Rx Instructions: INHALE 2 PUFFS BY MOUTH EVERY 6 HOURS NEEDED FOR SHORTNESS OF BREATH OR WHEEZING. ADMINISTER WITH SPACER. atorvastatin 20 mg tablet See Rx Instructions .ROUTE .COMPLEX Qty: 90 3RF Dose Instruction: TAKE 1 TABLET DAILY Rx Instructions: TAKE 1 TABLET DAILY apixaban 2.5 mg tablet 2.5 mg PO BID Qty: 180 4RF levothyroxine [Synthroid] 137 mcg tablet 137 mcg PO DAILY Qty: 90 1RF albuterol sulfate 1.25 mg/3 mL solution for nebulization 1.25 mg inhalation Q4H Qty: 90 1RF omeprazole 40 mg capsule,delayed release(DR/EC) 40 mg PO DAILY Qty: 90 1RF furosemide [Lasix] 40 mg tablet 40 mg PO Q OTHER DAY Qty: 45 3RF carvedilol 25 mg tablet 25 mg PO BID Qty: 180 3RF Rx Instructions: must administer with a meal/food Primary Care Provider: Jamir Guardado Referrals: Jamir Guardado, [Primary Care Provider] - 5-7 Days Print Language: Arabic Disposition Disposition: Home, Self Care
[2024-11-12 09:10] LABS: Mucous, Urine 0 SEEN /hpf (<or=2+); Red Blood Cells-Urine 0 SEEN /hpf (0-5)
--- NOTE | 2024-11-12 09:20 | RAD_ITS ---
PROCEDURE: CHEST PA AND LATERAL 11/12/2024 REASON FOR EXAM: DYSPNEA TECHNIQUE: CHEST PA AND LATERAL COMPARISON: Chest radiograph 07/30/2022. FINDINGS: Hardware: Prior right reverse shoulder arthroplasty. Heart: Unchanged severe cardiomegaly. Mediastinum: The thoracic aorta is tortuous and calcified. Lungs: Persistent findings of mild emphysema with bibasilar atelectasis/scarring. Probable trace pleural effusions. No focal consolidation or pneumothorax. Bones: Degenerative changes are identified within the thoracic spine. Left glenohumeral joint arthrosis. RAD/Chest PA and Lateral IMPRESSION: Stable severe cardiomegaly with probable trace pleural effusions. Reading Location: [id number]
[2024-11-12 09:30] LABS: Color, Urine Yellow (Yellow); Glucose, Dipstick Normal (Normal); Ketone-Dipstick Negative (Negative); Leukocyte Esterase-Dipstick 100 /ul (Negative); Nitrite-Dipstick Negative (Negative); Occult Blood-Urine Negative /ul (Negative); Protein-Dipstick 15 mg/dl (Negative); Specific Gravity, Urine 1.010 (1.002-1.030); Urine Bilirubin Dipstick Negative (Negative)
[2024-11-12 09:31] LABS: Hematocrit 38.0 % (37-47); Hemoglobin 12.7 g/dL (12.0-15.0); Immature Granulocytes Count 0.010 X10^3/uL (0.0-0.0); Mean Corp Hgb Conc 33.4 g/dL (32-36); Mean Corpuscular Volume 91.8 fL (81-99); Mean Platelet Vol. 10.6 fl (6.2-12.0); NRBC Flagged by Analyzer 0 % (0-5); Platelet Count 173 K/mm3 (150-450); RBC Distribution Width CV 12.6 % (11.6-14.6); RBC Distribution Width SD 42.5 fl (35.1-43.9); Red Blood Count 4.14 M/mm3 (4.2-5.4); White Blood Count 4.2 K/mm3 (4.4-11.0)
--- OUTSIDE RECORDS SUMMARY | 2024-11-12 09:36 | XMS RPT_ITS | CCD ---
Author Organization [facility] ion Partnership [facility] Care Team Providers Care Answering Service Operator Name Role Phone YAYA Baumann, Faith Sandoval Unavailable [phone] Mike Brown Unavailable Unavailable PAPOURAS, MURALI Attending Unavailable IMCA Referring Unavailable PAPOURAS, MURALI Attending Unavailable CALABRETTA, HELDER Referring Unavailable PAPOURAS, MURALI Admitting Unavailable PAPOURAS, MURALI Attending Unavailable PAPOURAS, MURALI Referring Unavailable BROWN, MELY Primary Care Unavailable PAPOURAS, MURALI Admitting Unavailable PAPOURAS, MURALI Attending Unavailable PAPOURAS, MURALI Referring Unavailable BROWN, MELY Primary Care Unavailable PAPOURAS, MURALI Attending Unavailable BROWN, MELY Referring Unavailable BROWN, MELY Primary Care Unavailable PAPOURAS, MURALI Attending Unavailable BROWN, MELY Referring Unavailable BROWN, MELY Primary Care Unavailable Lauren Fine Unavailable AVIVA Lucia Unavailable Unavailable Dr. Mely Epperson Primary Care Provider [phone] Dr. Mely Epperson Referring Provider [phone] ENE Shea Attending Provider Unavailab Dr. Mely Campbell Attending Provider Mely Epperson DO Primary Care Provider George Malik Unavailable Herminio AWNING MAKER, AWNING MAKERKhang Fragoso Attending Provider Dr. [place] Emergency Provider Dr. Alejandra Shahid Attending Provider Dr. Alejandra Shahid Admit Provider Dr. Alejandra Shahid Other Provider Dr. Nelida Trejo Other Provider Dr. Chacho Aragon Attending Provider Dr. Chacho Aragon Other Provider Dr. Long Tay Other Provider Dr. Nelida Trejo Attending Provider Dr. May Gotti Attending Provider Dr. May Gotti Other Provider Dr. Mely Epperson Primary Care Provider Dr. Mely Epperson Attending Provider Dr. Mely Epperson Referring Provider ENE Shea Attending Provider Unavail ikm Manley AWNING MAKER, AWNING MAKER-C Raf Attending Provider [phone] Dr. Homero Dodd Attending Provider Dr. Mely Epperson Primary Care Provider Dr. Mely Epperson Referring Provider YAYA Stout Referring Provider [phone] ENE Ramirez Attending Provider Dr. Mely Epperson Attending Provider Dr. Mely Epperson Primary Care Provider Dr. Mely Epperson Referring Provider ENE Ramirez Attending Provider Dr. Mely Epperson Attending Provider Dr. Mely Epperson Primary Care Provider Dr. Mely Epperson Referring Provider Herminio AWNING MAKER, AWNING MAKER-C Raul Fragoso Attending Provider Dr. Mely Epperson Primary Care Provider [phone] Dr. Mely Epperson Attending Provider Dr. Mely Epperson Referring Provider [phone] Sindhu AWNING MAKER, AWNING MAKER-C Raf Attending Provider [phone] Dr. Mely Epperson Primary Care Provider Dr. Mely Epperson Attending Provider Dr. Mely Epperson Referring Provider Herminio AWNING MAKER, AWNING MAKER-C Raul Fragoso Attending Provider Sindhu AWNING MAKER, AWNING MAKER-C Raf Attending Provider [phone] ENE Ramirez Attending Provider MD Bear Person Attending Provider Unavailab Dr. Mely Campbell Primary Care Provider [phone] Dr. Mely Epperson Referring Provider [phone] Mely Epperson Attending Provider Dr. Mely Epperson Primary Care Provider [phone] Dr. Mely Epperson Attending Provider Dr. Mely Epperson Referring Provider [phone] Herminio AWNING MAKER, AWNING MAKER-C Raul Fragoso Attending Provider [phone] Dr. Mely Epperson Primary Care Provider [phone] Dr. Mely Epperson Attending Provider Dr. Mely Epperson Referring Provider ABDULAZIZ Ribera Attending Provider ENE Figueroa Attending Provider [phone] Chad Toyn Attending Provider Dr. Mely Epperson DO Primary Care Provider Dr. Mely Epperson DO Attending Provider [phone] Dr. Mely Epperson DO Referring Provider [phone] Dr. Mark London DO Attending Provider Jeff Granda Attending Provider Long Ramirez Attending Provider Dr. Uvaldo Fine DO Emergency Provider Chavo HOPE, Dr. Bonilla Attending Provider Kim WEAVER, Dr. Bailon Attending Provider Dione HOPE, Dr. Aayush Jane Attending Provider Kim WEAVER, Dr. Bailon Referring Provider Geo WEAVER, Dr. Mely Mg Primary Care Provider Geo WEAVER, Dr. Mely Mg Referring Provider [phone] Geo WEAVER, Dr. Mely Mg Attending Provider [phone] Herminio AWNING MAKER-CRaul Attending Provider Geo WEAVER, Dr. Mely Mg Primary Care Provider Geo WEAVER, Dr. Mely Mg Referring Provider [phone] Brown, Mely R Referring Unavailable Chad Tony Attending Unavailable Brown, Mely R Primary Care Unavailable Brown, Mely R Referring Unavailable Brown, Mely R Primary Care Unavailable Bear Nichols Attending Unavailable Brown, Mely R Primary Care Unavailable Brown, Mely R Referring Unavailable Brown, Mely R Attending Unavailable Brown, Mely R Referring Unavailable Raul Durham NP Attending Unavailable Brown, Mely R Primary Care Unavailable Arlene Feldman Referring Unavailable Arlene Feldman Attending Unavailable Brown, Mely R Primary Care Unavailable Brown, Mely R Attending Unavailable Brown, Mely R Primary Care Unavailable Brown, Mely R Primary Care Unavailable Brown, Mely R Referring Unavailable Brown, Mely R Attending Unavailable Brown, Mely R Attending Unavailable Brown, Mely R Primary Care Unavailable Brown, Mely R Referring Unavailable Brown, Mely R Primary Care Unavailable Brown, Mely R Referring Unavailable Mark London Attending Unavailable Brown, Mely R Primary Care Unavailable Brown, Mely R Referring Unavailable Brown, Mely R Attending Unavailable Brown, Mely R Referring Unavailable Brown, Mely R Primary Care Unavailable Brown, Mely R Attending Unavailable Long Ramirez Attending Unavailable Brown, Mely R Primary Care Unavailable Brown, Mely R Primary Care Unavailable Jeff Esteban Attending Unavailable Jeff Esteban Referring Unavailable Brown, Mely R Primary Care Unavailable Emma Campbell Referring Unavailable Emma Campbell Attending Unavailable Brown, Mely R Referring Unavailable Brown, Mley R Primary Care Unavailable Brown, Mely R Attending Unavailable Roof AWNING MAKER, Raul Fragoso Attending Unavailable Brown, Mely R Primary Care Unavailable Brown, Mely R Primary Care Unavailable Brown, Mely R Referring Unavailable Brown, Mely R Attending Unavailable Waneryeda, Arlene Referring Unavailable Waight, Arlene Attending Unavailable Brown, Mely R Primary Care Unavailable Brown, Mely R Referring Unavailable Long Ramirez Attending Unavailable Brown, Mely R Primary Care Unavailable Uvaldo Fine Attending Unavailable Brown, Mely R Primary Care Unavailable Brown, Mely R Primary Care Unavailable Brown, Mely R Referring Unavailable Brown, Mely R Attending Unavailable Brown, Mely R Primary Care Unavailable Brown, Mely R Referring Unavailable Emma Campbell Attending Unavailable Brown, Mely R Referring Unavailable Roof AWNING MAKER, Raul Fragoso Attending Unavailable Brown, Mely R Primary Care Unavailable Brown, Mely R Attending Unavailable Brown, Mely R Primary Care Unavailable Brown, Mely R Referring Unavailable Roof AWNING MAKER, Raul Fragoso Attending Unavailable Brown, Mely R Primary Care Unavailable Brown, Mely R Referring Unavailable Brown, Mely R Primary Care Unavailable Brown, Mely R Referring Unavailable Jeff Esteban Attending Unavailable Medications Current Medications Medication Drug Class(es) Dates Sig (Normalized) Sig (Original) acetaminophen 500 mg oral tablet (20 sources) Start: 11-18-2021 take 2 tablets by mouth every eight hours Acetaminophen 500 mg Tablet Active 1000 mg PO EVERY 8 HOURS 0 0 November 18, 2021 12:00am Start: 11-18-2021 take 1000 mg by mout h every eight hours Acetaminophen Active 1000 MG PO EVERY 8 HOURS 0 November 17, 2021 11:00pm take 2 tablets by mo uth every six hours as needed acetaminophen (TYLENOL) 325 mg tablet Take 650 mg by mouth every 6 hours as needed. 0 Active Comment on above: Take 650 mg by mouth every 6 hours as needed. albuterol 0.417 mg/ml inhalation solution (20 sources) beta2-Adrenergic Agonist Start: 05-18-2023 End: 04-17-2024 take 2 puff(s) by mouth every six hours as needed for wheezing Albuterol Sulfate 90 mcg/actuation HFA aerosol inhaler Active 0 .ROUTE .COMPLEX 36 0 April 17, 2024 11:46am INHALE 2 PUFFS BY MOUTH EVERY 6 HOURS NEEDED FOR SHORTNESS OF BREATH OR WHEEZING. ADMINISTER WITH SPACER. Start: 02-12-2022 End: 07-20-2024 take 1.25 mg by inhalation every four hours Albuterol Sulfate 1.25 mg/3 mL solution for nebulization Discontinued 1.25 mg INHALATION Q4H 90 1 September 01, 2022 8:21am July 20, 2024 12:25pm Start: 07-23-2021 take 1 puff(s) by in halation every six hours Albuterol Sulfate (Ventolin Hfa) 90 mcg/actuation HFA aerosol inhaler Active 2 PUFF INHALATION EVERY 6 HOURS 25.July 23, 2021 2:55pm administer with spacer Start: 01-30-2021 End: 07-23-2021 take 1 puff(s) by inhalation every six hours Albuterol Sulfate (Ventolin Hfa) 90 mcg/actuation HFA aerosol inhaler Discontinued 2 PUFF INHALATION EVERY 6 HOURS 25.January 30, 2021 1:56pm July 23, 2021 2:55pm administer with spacer Start: 10-29-2020 End: 05-18-2023 Albuterol Sulfate (Ventolin Hfa) 90 mcg/actuation HFA aerosol inhaler Discontinued 2 NMA INHALATION EVERY 6 HOURS as needed for shortness of breath or wheezing 8.5 1 January 07, 2021 10:39am January 30, 2021 1:57pm administer with spacer Start: 10-29-2020 End: 05-18-2023 take 1 puff(s) by inhalation every six hours Albuterol Sulfate (Ventolin Hfa) 90 mcg/actuation HFA aerosol inhaler Discontinued 2 PUFF INHALATION EVERY 6 HOURS 8.5 January 07, 2021 9:39am January 30, 2021 12:57pm administer with spacer Start: 10-14-2017 End: 12-14-2017 Albuterol Sulfate (Ventolin Hfa) 90 mcg/actuation HFA aerosol inhaler Discontinued 2 NMA INHALATION EVERY 6 HOURS as needed for shortness of breath or wheezing 6.7 0 October 14, 2017 12:00am December 14, 2017 1:54pm administer with spacer Start: 10-14-2017 End: 12-14-2017 take 1 puff(s) by inhalation every six hours Albuterol Sulfate (Ventolin Hfa) 90 mcg/actuation HFA aerosol inhaler Discontinued 2 PUFF INHALATION EVERY 6 HOURS 6.7 October 13, 2017 11:00pm December 14, 2017 12:54pm administer with spacer albuterol 0.833 mg/ml / ipratropium bromide 0.167 mg/ml inhalation solution (20 sources) Anticholinergic, beta2-Adrenergic Agonist Start: 07-24-2022 End: 07-31-2022 take 1 mL by inhalation every four hours as needed for wheezing Ipratropium-Albuterol 0.5 mg-3 mg(2.5 mg base)/3 mL solution for nebulization Active 3 mL INHALATION Q4H as needed for shortness of breath or wheezing 180 0 July 31, 2022 11:24am Start: 07-24-2022 End: 07-31-2022 take 1 mL by inhalation every four hours Ipratropium-Albuterol Active 3 ML INHALATION Q4H 180 July 31, 2022 10:24am amoxicillin 875 mg / clavulanate 125 mg oral tablet (20 sources) Penicillin-class Antibacterial Start: 10-22-2024 Amoxicillin-Pot Clavulanate 875-125 mg tablet Active 1 {tbl} PO TWICE A DAY 14 7 0 October 22, 2024 12:00am October 28, 2024 12:00am Start: 09-21-2024 End: 10-01-2024 Amoxicillin-Pot Clavulanate 875-125 mg tablet Discontinued 1 {tbl} PO Q12H 20 10 0 September 21, 2024 12:00am September 30, 2024 12:00am October 01, 2024 12:11am Acute sinusitis, unspecified Start: 06-30-2022 End: 07-21-2022 Amoxicillin-Pot Clavulanate 875-125 mg tablet Discontinued 1 {tbl} PO TWICE A DAY 14 0 June 30, 2022 1:00am July 21, 2022 12:13pm Start: 06-30-2022 End: 07-21-2022 take 1 tablet by mouth twice daily Amoxicillin-Pot Clavulanate Discontinued 1 TABLET PO TWICE A DAY 14 June 30, 2022 12:00am July 21, 2022 11:13am Start: 08-06-2021 End: 08-28-2021 Amoxicillin-Pot Clavulanate (Augmentin) 500-125 mg tablet Discontinued 1 {tbl} PO Q8H 20 0 August 06, 2021 12:00am August 28, 2021 1:10pm ascorbic acid 500 mg oral tablet (20 sources) Start: 04-22-2012 take 1 tablet by mouth once daily Ascorbic Acid (Vitamin C) 500 mg tablet Active 500 mg PO daily September 14, 2017 12:00am supplement Comment on above: Take 500 mg by mouth once daily. carvedilol 25 mg oral tablet (10 sources) alpha-Adrenergi c Good, beta-Adrenergic Good Start: 10-09-2024 take 1 tablet by mouth twice daily at mealtime Carvedilol 25 mg tablet Active 25 mg PO TWICE A DAY 60 October 09, 2024 8:04am must administer with a meal/food Start: 09-20-2024 End: 10-09-2024 take 1 tablet by mouth twice daily at mealtime Carvedilol (Coreg) 12.5 mg tablet Discontinued 12.5 mg PO TWICE A DAY 60 September 20, 2024 12:00am October 09, 2024 8:05am must administer with a meal/food docusate sodium 50 mg / sennosides, half-way 8.6 mg oral tablet (20 sources) Start: 11-18-2021 Sennosides-Doc usate Sodium (Stool Softener-Stimulant Laxat) 8.6-50 mg Tablet Active 2 {tbl} PO TWICE A DAY 0 0 November 18, 2021 12:00am ferrous sulfate 325 mg oral tablet (10 sources) Start: 02-17-2023 take 1 tablet by mouth once daily Ferrous Sulfate 325 mg (65 mg iron) tablet Active 325 mg PO DAILY February 17, 2023 12:00am Inhalational Spacing Device (20 sources) Start: 11-07-2020 Inhalational S pacing Device Active 0 .ROUTE .MEDSUPPLY November 07, 2020 10:15am As directed Start: 11-07-2020 Inhalational S pacing Device Active 0 .ROUTE .MEDSUPPLY November 06, 2020 11:00pm As directed Start: 11-07-2020 Inhalational S pacing Device Active 0 .ROUTE .MEDSUPPLY November 07, 2020 12:00am As directed Inhalational Spacing Device spacer (8 sources) Start: 11-07-2020 Inhalational S pacing Device spacer Active 0 .ROUTE .MEDSUPPLY 1 0 November 07, 2020 12:00am As directed Start: 11-07-2020 Inhalational S pacing Device spacer Active 0 .ROUTE .MEDSUPPLY 1 November 07, 2020 12:00am As directed losartan potassium 50 mg oral tablet (20 sources) Angiotensin 2 Receptor Good Start: 06-14-2024 take 1 tablet by mouth once daily Losartan 50 mg tablet Active 50 mg PO DAILY 90 2 June 14, 2024 2:49pm Start: 01-31-2024 End: 06-14-2024 Losartan 100 mg tablet Disco ntinued 50 mg PO DAILY 90 February 09, 2024 1:35pm June 14, 2024 2:49pm Start: 11-03-2023 End: 01-31-2024 take 1 tablet by mouth once daily Losartan 100 mg tablet Discontinued 100 mg PO DAILY 90 November 03, 2023 3:42pm January 31, 2024 1:02pm Start: 10-13-2023 End: 11-03-2023 take 1 tablet by mouth once daily Losartan 50 mg tablet Discontinued 50 mg PO DAILY 30 October 13, 2023 1:53pm November 03, 2023 3:42pm Start: 02-24-2018 End: 10-13-2023 take 1 tablet by mouth once daily Losartan 25 mg tablet Discontinued 25 mg PO DAILY 90 October 11, 2023 8:50am October 13, 2023 1:54pm Start: 09-16-2017 End: 02-24-2018 take 2 tablets by mouth once daily Losartan 25 mg tablet Discontinued 50 mg PO daily September 16, 2017 3:41pm February 24, 2018 4:49pm Start: 09-16-2017 End: 02-24-2018 take 50 mg by mouth once daily Losartan Discontinued 5 0 MG PO daily September 16, 2017 2:41pm February 24, 2018 3:49pm Start: 05-11-2017 End: 09-16-2017 take 1 tablet by mouth once daily Losartan 25 mg tablet Discontinued 25 mg PO daily 90 May 11, 2017 1:00am September 16, 2017 3:41pm Start: 09-14-2013 take 1 tablet by ana once daily COZAAR 50 MG TABS One tablet by mouth daily LOSARTAN POTASSIUM [id number] George Malik MD Start: 04-22-2012 take 1 tablet by ana th twice daily losartan (COZAAR) 50 mg tablet Take 1 tablet by mouth twice daily. 0 06/03/2012 Active Comment on above: Take 1 tablet by ana th twice daily. lysine 500 mg oral tablet (20 sources) Start: 02-12-2022 take 1 tablet by mouth once daily Lysine 500 mg tablet Active 500 mg PO DAILY February 12, 2022 12:00am Multivitamin 1 EACH tablet (8 sources) Start: 06-29-2018 Multivitamin 1 EACH tablet Active 1 {tbl} PO DAILY June 29, 2018 1:00am supplement Start: 06-29-2018 Multivitamin 1 EACH tablet Active 1 {tbl} PO DAILY June 29, 2018 1:00am Multivitamin preparation (20 sources) Start: 06-29-2018 take 1 tablet by mouth once daily Multivitamin Active 1 TABLET PO DAILY June 29, 2018 8:20pm Start: 06-29-2018 take 1 tablet by ana th once daily Multivitamin Active 1 TABLET PO DAILY June 29, 2018 12:00am Start: 06-29-2018 take 1 tablet by ana th once daily Multivitamin Active 1 TABLET PO DAILY June 29, 2018 1:00am nebulizer (20 sources) Start: 02-12-2022 nebulizer Acti ve 0 .Route .MEDSUPPLY 1 February 12, 2022 12:00am As directed Start: 02-12-2022 nebulizer Acti ve 0 .Route .MEDSUPPLY February 11, 2022 11:00pm As directed Start: 02-12-2022 nebulizer Acti ve 0 .Route .MEDSUPPLY February 12, 2022 12:00am As directed omeprazole 40 mg delayed release oral capsule (20 sources) Proton Pump Inhibitor Start: 06-02-2019 End: 10-24-2024 take 1 capsule by mouth once daily Omeprazole 40 mg capsule,delayed release(DR/EC) Active 40 mg PO DAILY 90 October 24, 2024 7:37am Start: 06-02-2019 End: 06-06-2019 Omeprazole 40 mg capsule,del ayed release(DR/EC) Discontinued PO June 02, 2019 1:00am June 06, 2019 11:59am Start: 10-14-2017 End: 10-03-2018 take 1 capsule by mouth once daily Omeprazole 40 mg capsule,delayed release(DR/EC) Discontinued 40 mg PO daily April 04, 2018 12:53pm October 03, 2018 4:14pm Start: 09-14-2017 End: 10-14-2017 take 1 capsule by mouth once daily Omeprazole 20 mg capsule,delayed release(DR/EC) Discontinued 20 mg PO daily September 14, 2017 12:00am October 14, 2017 10:20am Start: 01-10-2016 take 1 tablet by ana th once daily PRILOSEC 20 MG CPDR One tablet by mouth daily OMEPRAZOLE [id number] Mary Mustafa LPN Comment on above: Take 40 mg by mouth once daily. pregabalin 25 mg oral capsule (20 sources) Start: 01-31-2024 Pregabalin 25 mg capsule Active 150 mg PO TWICE A DAY January 31, 2024 1:00pm Start: 06-07-2023 End: 01-31-2024 Pregabalin 25 mg capsule Discontinued 100 mg PO TWICE A DAY October 13, 2023 1:29pm January 31, 2024 1:02pm 100mg am and 150mg pm Start: 06-07-2023 take 100 mg by mouth twice misael ly Pregabalin Active 100 MG PO TWICE A DAY June 07, 2023 1:32pm Start: 05-06-2022 End: 06-07-2023 take 2 capsules by mouth twice daily Pregabalin 25 mg capsule Discontinued 50 mg PO TWICE A DAY May 06, 2022 1:59pm June 07, 2023 2:33pm Start: 05-06-2022 End: 06-07-2023 take 50 mg by mouth twice daily Pregabalin Discontinue d 50 MG PO TWICE A DAY May 06, 2022 12:59pm June 07, 2023 1:33pm Start: 02-12-2022 End: 05-06-2022 take 1 capsule by mouth twice daily Pregabalin 25 mg capsule Discontinued 25 mg PO TWICE A DAY February 12, 2022 12:00am May 06, 2022 1:59pm Completed/Discontinued Medications Medication Drug Class(es) Dates Sig (Normalized) Sig (Original) acetaminophen 300 mg / codeine phosphate 15 mg oral tablet (16 sources) Opioid Agonist Start: 07-23-2022 End: 08-13-2022 Acetaminophen-Codei ne 300-15 mg tablet Discontinued 1 {tbl} PO Q8H as needed for cough July 23, 2022 12:00am August 13, 2022 1:31pm Start: 07-23-2022 End: 08-13-2022 take 1 tablet by mouth every eight hours Acetaminophen-Codeine Discontinued 1 TABLET PO Q8H July 22, 2022 11:00pm August 13, 2022 12:31pm HYDROCODONE-ACETAMINOPHEN (8 sources) Opioid Agonist Start: 08-24-2012 End: 03-21-2014 LORTAB 5-500 MG TABS As need ed HYDROCODONE-ACETAMINOPHEN [id number] George Malik MD Start: 08-24-2012 LORTAB 5-500 M G TABS As needed HYDROCODONE-ACETAMINOPHEN [id number] Dasha Aviles RN Start: 01-27-2012 End: 04-22-2012 VICODIN 5-500 MG TABS as nee ded HYDROCODONE-ACETAMINOPHEN [id number] George Malik MD Start: 01-27-2012 VICODIN 5-500 MG TABS as needed HYDROCODONE-ACETAMINOPHEN [id number] George Malik MD acetaminophen 325 mg / oxyCODONE hydrochloride 5 mg oral tablet (20 sources) Opioid Agonist Start: 01-17-2022 End: 02-12-2022 Oxycodone-Acetaminophen (Percocet) 5-325 mg tablet Discontinued 1 {tbl} PO EVERY 6 HOURS as needed for pain 10 3 January 17, 2022 February 12, 2022 2:40pm Acute pain of left hip Pain in left hip amLODIPine 5 mg oral tablet (20 sources) Dihydropyridine Calcium Channel Good Start: 10-31-2020 End: 10-13-2023 take 1 tablet by mouth once daily Amlodipine 5 mg tablet Discontinued 5 mg PO DAILY 90 3 August 26, 2023 5:13pm October 13, 2023 1:53pm Start: 05-11-2017 End: 10-31-2020 take 1 tablet by mouth once daily Amlodipine 10 mg tablet Discontinued 10 mg PO daily 90 April 03, 2020 10:32am June 20, 2020 2:51pm Start: 06-03-2012 take 5 mg by mouth once daily amLODIPine (NORVASC) 10 mg tablet Take 5 mg by mouth once daily. 0 06/03/2012 Active Start: 06-02-2012 take 1 tablet by ana th once daily NORVASC 10 MG TABS One tablet by mouth daily AMLODIPINE BESYLATE [id number] George Malik MD Start: 05-16-2012 take 1 tablet by ana th once daily NORVASC 5 MG TABS One tablet by mouth daily AMLODIPINE BESYLATE [id number] Kaitlynn Sharpe RN Comment on above: Take 5 mg by mouth o nce daily. amoxicillin 500 mg oral capsule (12 sources) Penicillin-class Antibacterial Start: 11-12-19 End: 02-18-20 take 1 capsule by mouth every eight hours Amoxicillin 500 mg capsule Discontinued 500 mg PO Q8H 20 0 November 11, 2022 12:00am February 17, 2023 1:27pm apixaban 2.5 mg oral tablet (20 sources) Factor Xa Inhibitor Start: 09-21-19 End: 06-29-19 take 1 tablet by mouth twice daily Apixaban 2.5 mg tablet Discontinued 2.5 mg PO TWICE A DAY 180 April 24, 2024 5:36pm June 29, 2024 5:05pm Comment on above: Take 2.5 mg by mouth twice daily. aspirin 81 mg chewable tablet (20 sources) Nonsteroidal Anti-inflammatory Drug Start: 10-12-19 End: 10-15-19 take 1 tablet by mouth once daily Aspirin 81 MG tablet,chewable Discontinued 81 mg PO DAILY@0800 October 11, 2017 12:00am October 14, 2017 9:38am Start: 09-14-2017 End: 04-29-2021 Aspirin (Adult Low Dose Aspi rin) 81 mg tablet,delayed release (DR/EC) Discontinued 81 mg PO daily September 14, 2017 12:00am April 29, 2021 2:38pm Start: 01-27-2012 take 1 tablet by ana th once daily ASPIRIN 81 MG TABS One tablet by mouth daily ASPIRIN [id number] George Malik MD Start: 01-27-2012 take 1 tablet by ana th once daily ASPIRIN EC 81 MG TBEC One tablet by mouth daily ASPIRIN [id number] Mike Manny Kevin Comment on above: Take 81 mg by mouth. atorvastatin 20 mg oral tablet (20 sources) HMG-CoA Reductase Inhibitor Start: 02-10-20 End: 05-01-20 Atorvastatin 20 mg tablet Discontinued 0 .ROUTE .COMPLEX 90 3 March 23, 2023 8:59am May 01, 2024 11:16am TAKE 1 TABLET DAILY Comment on above: Take 20 mg by mouth once daily. capsaicin 0.25 mg/ml topical cream (20 sources) Start: 11-12-19 End: 12-04-19 Capsaicin 0.025 % cream Discontinued 1 NMA TOPICAL THREE TIMES A DAY as needed for foot pain 60 2 November 11, 2021 12:00am December 03, 2021 3:58pm do not wash area for at least 30 min after application cephalexin 500 mg oral capsule (20 sources) Cephalosporin Antibacterial Start: 04-24-20 End: 05-14-19 take 1 capsule by mouth twice daily Cephalexin 500 mg capsule Discontinued 500 mg PO TWICE A DAY 14 0 April 24, 2023 1:00am May 14, 2023 1:38pm Start: 01-06-2023 End: 02-17-2023 take 1 capsule by mouth three times daily Cephalexin 500 mg capsule Discontinued 500 mg PO THREE TIMES A DAY 30 0 January 06, 2023 12:00am February 17, 2023 1:27pm Start: 05-06-2022 End: 05-14-2022 take 1 capsule by mouth three times daily Cephalexin 500 mg capsule Discontinued 500 mg PO THREE TIMES A DAY 20 0 May 06, 2022 2:27pm May 14, 2022 9:51am Start: 02-17-2022 End: 02-28-2022 take 1 capsule by mouth three times daily Cephalexin 500 mg capsule Discontinued 500 mg PO THREE TIMES A DAY 20 February 17, 2022 12:00am February 28, 2022 2:45pm ciprofloxacin 250 mg oral tablet (20 sources) Quinolone Antimicrobial Start: 02-09-2024 End: 05-06-2024 take 1 tablet by mouth twice daily Ciprofloxacin Hcl 250 mg tablet Discontinued 250 mg PO TWICE A DAY 10 February 09, 2024 12:00am May 06, 2024 11:42am Start: 05-11-2023 End: 06-07-2023 take 1 tablet by mouth twice daily Ciprofloxacin Hcl 250 mg tablet Discontinued 250 mg PO TWICE A DAY 10 May 11, 2023 1:00am June 07, 2023 2:31pm Start: 02-28-2022 End: 02-28-2022 take 1 tablet by mouth twice daily Ciprofloxacin Hcl (Cipro) 500 mg tablet Discontinued 500 mg PO TWICE A DAY 20 February 28, 2022 12:00am February 28, 2022 2:49pm Start: 01-21-2022 End: 02-12-2022 take 1 tablet by mouth twice daily Ciprofloxacin Hcl 500 mg tablet Discontinued 500 mg PO TWICE A DAY 14 January 21, 2022 12:00am February 12, 2022 2:40pm dexamethasone 6 mg oral tablet (10 sources) Corticosteroid Start: 05-14-2023 End: 06-07-2023 take 1 tablet by mouth once daily Dexamethasone 6 mg tablet Discontinued 6 mg PO DAILY 5 May 14, 2023 1:00am June 07, 2023 2:31pm 12 hr dextromethorphan hydrobromide 60 mg / guaiFENesin 1200 mg extended release oral tablet (20 sources) Uncompetitive N-wiuzvz-Y-aspartat e Receptor Antagonist, Sigma-1 Agonist Start: 10-14-2017 End: 12-14-2017 take 60-1200 mg by mouth every twelve hours Dextromethorphan-G uaifenesin (Mucinex Dm) 60-1,200 mg tablet extended release 12 hr Discontinued 1 {tbl} PO Q12H 14 October 14, 2017 12:00am December 14, 2017 1:54pm take with full glass of water DULoxetine 30 mg delayed release oral capsule (20 sources) Serotonin and Norepinephrine Reuptake Inhibitor Start: 07-23-2021 End: 09-17-2021 take 1 capsule by mouth twice daily Duloxetine 30 mg capsule,delayed release(DR/EC) Discontinued 30 mg PO TWICE A DAY 180 August 28, 2021 1:16pm September 17, 2021 9:14am esomeprazole 40 mg delayed release oral capsule (4 sources) Proton Pump Inhibitor Start: 03-16-2013 End: 01-10-2016 take 1 tablet by mouth once daily NEXIUM 40 MG CPDR One tablet by mouth daily ESOMEPRAZOLE MAGNESIUM [id number] Mary Mustafa MISAEL Fluad Quad (65yr up)(PF) 60 mcg (15 mcg x 4)/0.5mL IM syringe (flu vac (1 source) Start: 01-30-2021 End: 01-30-2021 Fluad Quad (65yr up)(PF) 60 mcg (15 mcg x 4)/0.5mL IM syringe (flu vac Discontinued 60 MCG IM ONCE 0.5 January 30, 2021 1:32pm January 30, 2021 2:26pm furosemide 40 mg oral tablet (20 sources) Loop Diuretic Start: 10-02-2020 End: 10-31-2020 take 1 tablet by mouth once daily Furosemide 40 mg tablet Discontinued 40 mg PO daily 90 3 October 02, 2020 4:44pm October 31, 2020 3:45pm Start: 10-02-2020 End: 10-02-2020 take 2 tablets by mouth once daily Furosemide 20 mg tablet Discontinued 40 mg PO daily October 02, 2020 3:59pm October 02, 2020 4:44pm Start: 10-02-2020 End: 10-02-2020 take 40 mg by mouth once daily Furosemide Discontinued 40 MG PO daily October 02, 2020 2:59pm October 02, 2020 3:44pm Start: 12-31-2015 End: 10-02-2020 take 1 tablet by mouth once daily Furosemide 20 mg tablet Discontinued 20 mg PO daily 90 3 June 02, 2019 1:33pm June 20, 2020 2:51pm Comment on above: Take 20 mg by mouth once daily. gabapentin 100 mg oral capsule (20 sources) Anti-epileptic Agent Start: 01-21-2021 End: 08-28-2021 take 1 capsule by mouth in the morning, then take 2 capsules by mouth in the evening Gabapentin 100 mg capsule Discontinued 200 mg PO .COMPLEX 270 2 February 04, 2021 5:40pm August 28, 2021 1:11pm one in the morning two in the evening. Start: 01-08-2021 End: 01-21-2021 take 2 capsules by mouth at bedtime Gabapentin 100 mg capsule Discontinued 200 mg PO AT BEDTIME 60 2 January 08, 2021 4:26pm January 21, 2021 8:43am Start: 01-08-2021 End: 08-28-2021 Gabapentin Discontinued 200 MG PO .COMPLEX 270 February 04, 2021 4:40pm August 28, 2021 12:11pm one in the morning two in the evening. Start: 01-08-2021 End: 01-08-2021 Gabapentin 100 mg capsule Discontinued 200 mg PO AT BEDTIME January 08, 2021 4:21pm January 08, 2021 4:26pm 100mg Q AM 200 Q HS Start: 01-08-2021 End: 01-08-2021 Gabapentin Discontinued 200 MG PO AT BEDTIME January 08, 2021 3:21pm January 08, 2021 3:26pm 100mg Q AM 200 Q HS Start: 12-13-2020 End: 01-08-2021 take 1 capsule by mouth at bedtime Gabapentin 100 mg capsule Discontinued 100 mg PO AT BEDTIME 90 0 January 07, 2021 10:39am January 08, 2021 4:22pm Comment on above: Take 100 mg by mouth three times daily. 24 hr hydroCHLOROthiazide 12.5 mg / metoprolol succinate 50 mg extended release oral tablet (5 sources) Thiazide Diuretic, beta-Adrenergic Good Start: 013 End: 014 metoprolol ryan-hydrochlorothia z 50-12.5 mg Tb24 Take by mouth twice daily. 0 06/03/2012 Active Comment on above: Take by mouth twice daily. hydroCHLOROthiazide 12.5 mg / valsartan 160 mg oral tablet (2 sources) Thiazide Diuretic, Angiotensin 2 Receptor Good Start: 012 take 1 tablet by mouth once daily DIOVAN HCT 160-12.5 MG TABS One tablet by mouth daily VALSARTAN-HYDROCHL OROTHIAZIDE [id number] Dasha Aviles RN ibuprofen 200 mg oral tablet (1 source) Nonsteroidal Anti-inflammatory Drug take 3 tablets by mouth every six hours as needed ibuprofen (MOTRIN IB) 200 mg tablet Take 600 mg by mouth every 6 hours as needed (pt states she takes it once every other day). 0 Active Comment on above: Take 600 mg by mouth every 6 hours as needed (pt states she takes it once every other day). ISOSORBIDE MONONITRATE (4 sources) Start: 012 take 1 tablet by mouth once daily IMDUR 30 MG [id number] One tablet by mouth daily ISOSORBIDE MONONITRATE [id number] George Malik MD Start: 02-26-2012 End: 03-04-2012 take 1 tablet by mouth once daily IMDUR 30 MG [id number] One tablet by mouth daily ISOSORBIDE MONONITRATE [id number] Dasha Aviles RN Lactobacillus Combination No.9 (Adult 50+ Probiotic) 4 billion cell capsule (20 sources) Start: 10-03-2018 End: 01-24-2019 take 4 capsules by mouth once daily Lactobacillus Combination No.9 (Adult 50+ Probiotic) 4 billion cell capsule Discontinued 4000 MMU CELLS PO DAILY October 03, 2018 4:13pm January 24, 2019 3:40pm Start: 10-03-2018 End: 01-24-2019 take 4 capsules by mouth once daily Lactobacillus Combination No.9 (Adult 50+ Probiotic) 4 billion cell capsule Discontinued 4000 NMA PO DAILY October 03, 2018 12:00am January 24, 2019 3:40pm Start: 10-03-2018 End: 01-24-2019 take 4 capsules by mouth once daily Lactobacillus Combination No.9 (Adult 50+ Probiotic) 4 billion cell capsule Discontinued 4000 MMU CELLS PO DAILY October 02, 2018 11:00pm January 24, 2019 2:40pm Start: 10-03-2018 End: 01-24-2019 take 4 capsules by mouth once daily Lactobacillus Combination No.9 (Adult 50+ Probiotic) 4 billion cell capsule Discontinued 4000 MMU CELLS PO DAILY October 03, 2018 12:00am January 24, 2019 3:40pm lansoprazole 30 mg delayed release oral capsule (5 sources) Proton Pump Inhibitor Start: 01-20-2012 End: 03-16-2013 take 1 tablet by mouth once daily PREVACID 30 MG CPDR One tablet by mouth daily LANSOPRAZOLE [id number] George Malik MD Comment on above: Take 30 mg by mouth once daily. levoFLOXacin 500 mg oral tablet (20 sources) Quinolone Antimicrobial Start: 07-21-2022 End: 08-13-2022 take 1 tablet by mouth once daily Levofloxacin 500 mg tablet Discontinued 500 mg PO DAILY July 21, 2022 12:00am August 13, 2022 1:32pm Start: 10-11-2017 End: 12-14-2017 take 1 tablet by mouth once daily Levofloxacin 500 MG tablet Discontinued 500 mg PO DAILY October 11, 2017 12:00am December 14, 2017 1:54pm mecobalamin 1 mg sublingual tablet (20 sources) Start: 09-18-2020 End: 05-14-2022 Mecobalamin (Vitamin B12) 1, 000 mcg tablet,disintegrating Discontinued 1000 ug SL every other day November 06, 2021 2:11pm May 14, 2022 2:[address]pm supplement place tablet under tongue and allow to dissolve for at least30 secs before swallowing Start: 09-18-2020 End: 05-14-2022 Mecobalamin (Vitamin B12) Di scontinued 1000 MCG SL every other day November 06, 2021 1:11pm May 14, 2022 1:[address] tablet under tongue and allow to dissolve for at least30 secs before swallowing methenamine hippurate 1000 m g oral tablet (20 sources) Start: 06-28-2024 End: 10-11-2024 Methenamine Hippurate 1 gram tablet Discontinued 1 g PO ONCE June 28, 2024 1:00am October 11, 2024 1:20pm Start: 04-20-2023 End: 06-07-2023 Methenamine Hippurate (Hipre x) 1 gram tablet Discontinued 1 g PO TWICE A DAY 180 April 20, 2023 1:00am June 07, 2023 2:31pm Start: 02-17-2023 End: 06-07-2023 Methenamine Mandelate 1 gram tablet Discontinued 1 g PO TWICE A DAY 120 February 17, 2023 12:00am June 07, 2023 2:32pm administer after meals and at bedtime methylPREDNISolone 4 mg oral tablet (17 sources) Corticosteroid Start: 07-03-2022 End: 07-21-2022 take 1 tablet by mouth once Methylprednisolone (Medrol (Zachery)) 4 mg tablets,dose pack Discontinued 0 PO per package directions July 03, 2022 1:00am July 21, 2022 12:13pm PO PER PKG DIR metoprolol tartrate 25 mg oral tablet (20 sources) beta-Adrenergic Good Start: 01-31-2024 End: 09-20-2024 Metoprolol Tartrate 50 mg tablet Discontinued 50 mg PO AT BEDTIME 90 July 17, 2024 2:00pm September 20, 2024 1:55pm heart/BP 25mg in the AM and 50mg in the PM Start: 01-31-2024 End: 09-20-2024 take 1 tablet by mouth in the morning, then take 2 tablets by mouth in the evening Metoprolol Tartrate 25 mg tablet Discontinued 25 mg PO .AM 90 July 17, 2024 2:00pm September 20, 2024 1:55pm 25mg in the AM and 50mg in the PM Start: 11-06-2021 End: 01-31-2024 take 1 tablet by mouth at bedtime Metoprolol Tartrate 50 mg tablet Discontinued 50 mg PO AT BEDTIME 90 April 27, 2023 2:28pm January 31, 2024 1:36pm heart/BP at bedtime Start: 01-30-2021 End: 11-06-2021 take 1 tablet by mouth once at bedtime Metoprolol Tartrate 50 mg tablet Discontinued 50 mg PO ONCE 90 April 07, 2021 12:27pm November 06, 2021 2:13pm at bedtime Start: 05-11-2017 End: 01-30-2021 take 1 tablet by mouth twice daily Metoprolol Tartrate 50 mg tablet Discontinued 50 mg PO TWICE A DAY 180 June 02, 2019 1:33pm June 20, 2020 2:51pm Start: 04-22-2012 take 1 tablet by ana th twice daily METOPROLOL TARTRATE 50 MG TABS One tablet by mouth twice daily METOPROLOL TARTRATE [id number] George Malik MD Start: 01-27-2012 take 1 tablet by ana th twice daily METOPROLOL TARTRATE 25 MG TABS One tablet by mouth twice daily METOPROLOL TARTRATE [id number] George Malik MD 24 hr mirabegron 25 mg extended release oral tablet (8 sources) beta3-Adrenergic Agonist Start: 06-22-2023 End: 10-13-2023 take 1 tablet by mouth once daily Mirabegron (Myrbetriq) 25 mg tablet extended release 24 hr Discontinued 25 mg PO DAILY 90 June 22, 2023 1:00am October 13, 2023 1:28pm MULTIPLE VITAMINS-MINERALS (2 sources) Start: 06-02-2012 take 1 tablet by mouth once daily CENTRUM SILVER TABS One tablet by mouth daily MULTIPLE VITAMINS-MINERALS [id number] George Malik MD multivitamin tablet (1 source) take 1 tablet by mouth once daily multivitamin tablet Take 1 tablet by mouth once daily. 0 Active Comment on above: Take 1 tablet by ana th once daily. Mupirocin (8 sources) RNA Synthetase Inhibitor Antibacterial Start: 03-26-2024 End: 06-28-2024 Mupirocin 2 % ointment Discontinued 1 NMA TOPICAL TWICE A DAY March 26, 2024 1:00am June 28, 2024 2:33pm Start: 03-26-2024 End: 06-28-2024 Mupirocin 2 % ointment Disco ntinued 1 NMA TOPICAL TWICE A DAY March 26, 2024 1:00am June 28, 2024 2:33pm nitrofurantoin, macrocrystals 25 mg / nitrofurantoin, monohydrate 75 mg oral capsule (20 sources) Nitrofuran Antibacterial Start: 09-19-2024 End: 09-24-2024 take 1 capsule by mouth every twelve hours at mealtime Nitrofurantoin Monohyd/M-Cryst (Macrobid) 100 mg capsule Discontinued 100 mg PO Q12H 10 5 0 September 19, 2024 12:00am September 23, 2024 12:00am September 24, 2024 12:07am must administer with a meal/food Start: 05-06-2024 End: 05-11-2024 take 1 capsule by mouth twice daily at mealtime Nitrofurantoin Monohyd/M-Cryst (Macrobid) 100 mg capsule Discontinued 100 mg PO TWICE A DAY 10 5 0 May 06, 2024 1:00am May 10, 2024 1:00am May 11, 2024 1:11am must administer with a meal/food Start: 09-13-2018 End: 10-03-2018 take 1 capsule by mouth twice daily at mealtime Nitrofurantoin Monohyd/M-Cryst (Macrobid) 100 mg capsule Discontinued 100 mg PO TWICE A DAY September 13, 2018 12:00am October 03, 2018 4:14pm must administer with a meal/food Prateek.Tx.Comp. Immune Systm,Re g (Ensure Surgery) 0.08-1.4 gram-kcal/mL Liquid (20 sources) Start: 11-18-2021 End: 05-14-2022 Prateek.Tx.Comp. Immune Systm,Re g (Ensure Surgery) 0.08-1.4 gram-kcal/mL Liquid Discontinued 237 mL PO 3 TIMES DAILY WITH MEALS 0 November 18, 2021 12:00am May 14, 2022 2:50pm Start: 11-18-2021 End: 05-14-2022 Prateek.Tx.Comp. Immune Systm,Re g (Ensure Surgery) 0.08-1.4 gram-kcal/mL Liquid Discontinued 237 mL PO 3 TIMES DAILY WITH MEALS November 18, 2021 12:00am May 14, 2022 2:50pm Start: 11-18-2021 End: 05-14-2022 Prateek.Tx.Comp. Immune Systm,Re g (Ensure Surgery) 0.08-1.4 gram-kcal/mL Liquid Discontinued 237 ML PO 3 TIMES DAILY WITH MEALS November 18, 2021 12:00am May 14, 2022 2:50pm Start: 11-18-2021 End: 05-14-2022 Prateek.Tx.Comp. Immune Systm,Re g (Ensure Surgery) 0.08-1.4 gram-kcal/mL Liquid Discontinued 237 ML PO 3 TIMES DAILY WITH MEALS 0 November 17, 2021 11:00pm May 14, 2022 1:50pm Start: 11-18-2021 Prateek.Tx.Comp. I mmune Systm,Reg (Ensure Surgery) 0.08-1.4 gram-kcal/mL Liquid Active 237 ML PO 3 TIMES DAILY WITH MEALS November 17, 2021 11:00pm Start: 11-18-2021 Prateek.Tx.Comp. I mmune Systm,Reg (Ensure Surgery) 0.08-1.4 gram-kcal/mL Liquid Active 237 ML PO 3 TIMES DAILY WITH MEALS November 18, 2021 12:00am polyethylene glycol 3350 23854 mg powder for oral solution (1 source) Osmotic Laxative polyethylene gl ycol 3350 (MIRALAX) 17 gram/dose powder Take 17 g by mouth as needed (maybe once every other month). 0 Active Comment on above: Take 17 g by mouth a s needed (maybe once every other month). potassium gluconate 2.5 meq oral tablet (20 sources) Start: 2 End: 2 take 1 tablet by mouth once daily Potassium Gluconate 595 mg (99 mg) tablet Discontinued 595 mg PO DAILY December 03, 2021 12:00am December 03, 2021 4:24pm Start: 10-29-2020 End: 11-18-2021 take 1 tablet by mouth once daily Potassium Gluconate 500 mg (83 mg) tablet Discontinued 500 mg PO DAILY October 29, 2020 12:00am November 18, 2021 1:13pm supplement predniSONE 10 mg oral tablet (20 sources) Start: 08-02-2024 End: 09-20-2024 Prednisone 10 mg tablet Discontinued 10 mg PO As Directed 15 August 02, 2024 12:00am September 20, 2024 1:30pm One tablet three times a day times three days, then BID Start: 07-30-2022 End: 08-13-2022 take 3 tablets by mouth once daily Prednisone 20 mg tablet Discontinued 60 mg PO DAILY 15 July 30, 2022 12:00am August 13, 2022 1:33pm Start: 07-30-2022 End: 08-13-2022 take 60 mg by mouth once daily Prednisone Discontinued 60 MG PO DAILY July 29, 2022 11:00pm August 13, 2022 12:33pm raNITIdine 150 mg oral tablet (20 sources) Histamine-2 Receptor Antagonist Start: 07-16-2017 End: 10-03-2018 take 1 tablet by mouth twice daily Ranitidine Hcl 150 mg tablet Discontinued 150 mg PO TWICE A DAY 180 February 01, 2018 8:38am October 03, 2018 4:14pm Start: 09-14-2013 take 1 tablet by ana twice daily ZANTAC 150 MG TABS One tablet by mouth twice daily RANITIDINE HCL [id number] Faith M Baumann, PA-C sulfacetamide sodium 100 mg/ml ophthalmic solution (20 sources) Sulfonamide Antibacterial Start: 02-09-2024 End: 09-20-2024 Sulfacetamide Sodium 10 % drops Discontinued 1 NMA OPHTHALMIC Q4H 15 February 09, 2024 12:00am September 20, 2024 1:30pm Start: 08-06-2021 End: 11-06-2021 Sulfacetamide Sodium (Bleph- 10) 10 % drops Discontinued 1 NMA OPHTHALMIC Q4H 5 0 August 06, 2021 12:00am November 06, 2021 2:12pm In the left eye levothyroxine sodium 0.137 mg oral tablet (20 sources) l-Thyroxine Start: 08-15-2020 End: 07-18-2024 take 1 tablet by mouth once daily Levothyroxine (Synthroid) 137 mcg tablet Discontinued 137 ug PO DAILY 90 January 25, 2024 8:22am July 18, 2024 8:19am Start: 09-14-2017 End: 08-15-2020 take 1 tablet by mouth once daily Levothyroxine 125 mcg tablet Discontinued 125 ug PO daily 90 June 24, 2020 6:33pm August 15, 2020 8:47am Start: 09-14-2013 take 1 tablet by ana th once daily LEVOTHYROXINE SODIUM 125 MCG TABS One tablet by mouth daily LEVOTHYROXINE SODIUM [id number] Faith Baumann PA-C Start: 01-20-2012 take 1 tablet by ana th once daily LEVOTHYROXINE SODIUM 112 MCG TABS One tablet by mouth daily LEVOTHYROXINE SODIUM [id number] Dasha Aviles RN levothyroxine (S YNTHROID) 112 mcg tablet Take 137 mcg by mouth once daily. 0 Active Comment on above: Take 137 mcg by mout h once daily. 24 hr tolterodine tartrate 2 mg extended release oral capsule (20 sources) Cholinergic Muscarinic Antagonist Start: 06-30-19 End: 06-28-19 take 1 capsule by mouth once daily Tolterodine 2 mg capsule,extended release 24hr Discontinued 2 mg PO DAILY 30 2 January 28, 2024 9:31am February 09, 2024 1:39pm traMADol hydrochloride 50 mg oral tablet (20 sources) Opioid Agonist Start: 11-19-19 End: 02-13-20 22 take 1 tablet by mouth every six hours as needed for pain Tramadol 50 mg Tablet Discontinued 50 mg PO EVERY 6 HOURS NEEDED as needed for Pain Score 4-5 5 2 0 November 18, 2021 12:00am February 12, 2022 2:40pm Closed fracture of right hip valsartan 160 mg oral tablet (6 sources) Angiotensin 2 Receptor Good Start: 02-10-20 End: 04-22-20 12 take 1 tablet by mouth twice daily DIOVAN 160 MG TABS One tablet by mouth twice daily VALSARTAN [id number] Britney Musa RN Start: 01-27-2012 take 1 tablet by ana once daily DIOVAN 160 MG TABS One tablet by mouth daily VALSARTAN [id number] George Malik MD vitamin b12 1 mg oral tablet (1 source) Vitamin B12 take 1 tablet by mouth once daily cyanocobalamin (VITAMIN B-12) 1,000 mcg tab Take 1,000 mcg by mouth once daily. 0 Active Comment on above: Take 1,000 mcg by mo ut once daily. Problems Active Problems Problem Classification Problem Date Documented Date Episodic/Chronic Abdominal hernia (20 sources) Unspecified abdominal hernia without obstruction or gangrene; Translations: [Hernia] Onset: 2 01-26-2012 Episodic Acute bronchitis (20 sources) Acute bronchitis; Translations: [Acute bronchitis, unspecified] 07-01-2022 Episodic Cardiac dysrhythmias (20 sources) Cardiac arrhythmia; Translations: [Cardiac arrhythmia, unspecified] Chronic Chronic obstructive pulmonary disease and bronchiectasis (20 sources) Chronic obstructive lung disease; Translations: [Chronic obstructive pulmonary disease, unspecified] Chronic Chronic obstructive pulmonary disease and bronchiectasis (2 sources) Bronchitis; Translations: [Bronchitis, not specified as acute or chronic] Episodic Coronary atherosclerosis and other heart disease (20 sources) Atherosclerotic heart disease of [place] coronary artery without angina pectoris; Translations: [Coronary arteriosclerosis] Onset: 2 03-11-2016 Chronic Diabetes mellitus without complication (2 sources) Hyperglycemia; Translations: [Hyperglycemia, unspecified] Episodic Diseases of white blood cells (20 sources) Leukocytosis; Translations: [Elevated white blood cell count, unspecified] Chronic Disorders of lipid metabolism (20 sources) Hyperlipidemia; Translations: [Pure hypercholesterolemia] Onset: 3 03-22-2013 Chronic E Codes: Fall (8 sources) Unspecified fall, initial encounter; Translations: [Unspecified fall] Episodic Esophageal disorders (2 sources) Gastroesophageal reflux disease without esophagitis; Translations: [Gastro-esophageal reflux disease without esophagitis] Onset: 8 05-27-2018 Chronic Esophageal disorders (2 sources) Esophageal disorders Onset: 9 Essential hypertension (20 sources) Hypertensive disorder; Translations: [Essential hypertension] Onset: 2 01-20-2012 Chronic Fluid and electrolyte disorders (20 sources) Hyponatremia; Translations: [Hypo-osmolality and hyponatremia] Episodic Fracture of neck of femur (hip) (20 sources) Closed fracture of hip; Translations: [Fracture of unspecified part of neck of right femur, initial encounter for closed fracture] Episodic Genitourinary symptoms and ill-defined conditions (20 sources) Dysuria; Translations: [Dysuria] Onset: 4 06-30-2022 Episodic Heart valve disorders (20 sources) Mitral valve regurgitation; Translations: [Mitral valve disorder] Onset: 4 10-30-2015 Chronic Joint disorders and dislocations; trauma-related (1 source) Anterior dislocation of shoulder joint; Translations: [Anterior dislocation of unspecified humerus, initial encounter] Episodic Malaise and fatigue (4 sources) Fatigue; Translations: [Other fatigue] Onset: 6 01-10-2016 Episodic Osteoarthritis (20 sources) Osteoarthritis of right knee joint; Translations: [Unilateral primary osteoarthritis, right knee] Onset: 5 09-06-2024 Chronic Other aftercare (1 source) Long-term current use of drug therapy; Translations: [Other oysterman (current) drug therapy] Episodic Other aftercare (14 sources) Long-term current use of anticoagulant; Translations: [custodial (current) use of anticoagulants] 07-30-2022 Episodic Other aftercare (18 sources) Drug therapy finding; Translations: [custodial (current) use of anticoagulants] 06-07-2023 Episodic Other aftercare (2 sources) custodial (current) use of anticoagulants; Translations: [Long-term (current) use of anticoagulants] Onset: 5 06-07-2023 Episodic Other and unspecified benign neoplasm (20 sources) Intracranial meningioma; Translations: [Benign neoplasm of cerebral meninges] 02-12-2022 Chronic Other and unspecified benign neoplasm (13 sources) Benign neoplasm of cerebral meninges; Translations: [Benign neoplasm of cerebral meninges] Chronic Other connective tissue disease (20 sources) History of repair of hip joint; Translations: [Presence of right artificial hip joint] 11-15-2021 Chronic Other connective tissue disease (17 sources) Presence of right artificial hip joint; Translations: [Hip joint replacement] Chronic Other connective tissue disease (6 sources) Repeated falls; Translations: [History of fall] Episodic Other connective tissue disease (20 sources) Triggering of digit; Translations: [Trigger finger, left ring finger] 06-28-2024 Episodic Other connective tissue disease (16 sources) Pain in lower limb; Translations: [Pain in leg, unspecified] 08-02-2024 Episodic Other connective tissue disease (12 sources) Swelling of right lower limb; Translations: [Other specified soft tissue disorders] 09-19-2024 Episodic Other connective tissue disease (1 source) Other specified soft tissue disorders; Translations: [Other specified soft tissue disorders] Onset: 5 Episodic Other diseases of veins and lymphatics (8 sources) Venous insufficiency of leg; Translations: [Venous insufficiency (chronic) (peripheral)] 10-11-2024 Episodic Other diseases of veins and lymphatics (1 source) Venous insufficiency (chronic) (peripheral); Translations: [Venous insufficiency (chronic) (peripheral)] Onset: 5 Episodic Other hereditary and degenerative nervous system conditions (1 source) Restless legs syndrome; Translations: [Restless legs syndrome] Onset: 5 Chronic Other lower respiratory disease (20 sources) Dyspnea on exertion; Translations: [Dyspnea, unspecified] 10-12-2017 Episodic Other lower respiratory disease (20 sources) Lower respiratory tract infection; Translations: [Unspecified acute lower respiratory infection] 10-12-2017 Episodic Other nervous system disorders (20 sources) Peripheral nerve disease ; Translations: [Polyneuropathy, unspecified] 12-13-2020 Chronic Other nervous system disorders (20 sources) Neuropathy; Translations: [Polyneuropathy, unspecified] 11-13-2021 Chronic Other nervous system disorders (20 sources) Polyneuropathy, unspecified; Translations: [Unspecified hereditary and idiopathic peripheral neuropathy] Onset: 5 Chronic Other non-traumatic joint disorders (2 sources) Shoulder pain; Translations: [Pain in unspecified shoulder] Episodic Other non-traumatic joint disorders (20 sources) Hip pain; Translations: [Pain in left hip] 01-25-2022 Episodic Other non-traumatic joint disorders (1 source) Pain in right knee; Translations: [Pain in right knee] Onset: 5 Episodic Other nutritional; endocrine; and metabolic disorders (1 source) Obese class I; Translations: [Obesity, unspecified] Onset: 8 02-16-2018 Chronic Other screening for suspected conditions (not mental disorders or infectious disease) (20 sources) Plain X-ray result abnormal; Translations: [Abnormal findings on diagnostic imaging of other specified body structures] Chronic Other skin disorders (8 sources) Eruption; Translations: [Rash and other nonspecific skin eruption] 03-26-2024 Episodic Other upper respiratory disease (14 sources) Acute bronchospasm; Translations: [Acute bronchospasm] 07-30-2022 Episodic Other upper respiratory disease (8 sources) Nasal discharge; Translations: [Other specified disorders of nose and nasal sinuses] 05-06-2024 Episodic Other upper respiratory disease (8 sources) Nasal congestion; Translations: [Nasal congestion] 05-06-2024 Episodic Sandra-; endo-; and myocarditis; cardiomyopathy (except that caused by tuberculosis or sexually transmitted disease) (13 sources) Heart valve disorder; Translations: [Endocarditis, valve unspecified] 12-10-2022 Chronic Pneumonia (except that caused by tuberculosis or sexually transmitted disease) (15 sources) Pneumonia; Translations: [Pneumonia, unspecified organism] 07-24-2022 Episodic Residual codes; unclassified (1 source) Restlessness; Translations: [Restlessness and agitation] Chronic Residual codes; unclassified (1 source) Body fluid retention; Translations: [Edema, unspecified] Episodic Residual codes; unclassified (6 sources) Localized edema; Translations: [Edema] Episodic Thyroid disorders (20 sources) Hypothyroidism; Translations: [Hypothyroidism, unspecified] Onset: 5 Chronic Unclassified (20 sources) Electrocardiogram abnormal; Translations: [Pulmonary function studies abnormal] Onset: 2 01-20-2012 Episodic Unclassified (6 sources) Long-term drug therapy; Translations: [Long-term (current) use of other medications] Onset: 3 Resolved: 5 03-22-2013 Unclassified (10 sources) Trigger finger of left hand; Translations: [M65.342 - Trigger finger, left ring finger] Unclassified (1 source) Chronic atrial fibrillation, unspecified; Translations: [Chronic atrial fibrillation, unspecified] Onset: Viral infection (12 sources) Disease caused by 2019-nCoV; Translations: [COVID-19] 05-14-2023 Episodic Past or Other Problems Problem Classification Problem Date Documented Da te Episodic/Chronic Appendicitis and other appendiceal conditions (2 sources) Acute appendicitis; Translations: [Unspecified acute appendicitis] Onset: 01-21-2012 01-21-2012 Episodic Conditions associated with dizziness or vertigo (14 sources) Orthostatic hypotension; Translations: [Dizziness and giddiness] Onset: 06-14-2024 10-13-2023 Episodic Immunizations and screening for infectious disease (13 sources) Contact with and (suspected) exposure to other viral communicable diseases; Translations: [Needs influenza immunization] Onset: 02-09-2024 03-18-2020 Episodic Inflammation; infection of eye (except that caused by tuberculosis or sexually transmitteddisease) (11 sources) Conjunctivitis; Translations: [Other mucopurulent conjunctivitis, left eye] Onset: 02-09-2024 Episodic Influenza (3 sources) Influenza Nausea and vomiting (9 sources) Nausea, vomiting and diarrhea; Translations: [Nausea with vomiting, unspecified] Onset: 05-06-2024 05-06-2024 Episodic Nonspecific chest pain (2 sources) Chest discomfort; Translations: [Other chest pain] Onset: 01-27-2012 01-27-2012 Episodic Other connective tissue disease (1 source) Trigger finger, left ring finger; Translations: [Trigger finger, left ring finger] Onset: 06-28-2024 Episodic Other gastrointestinal disorders (1 source) Diarrhea, unspecified; Translations: [Diarrhea, unspecified] Onset: 05-06-2024 Episodic Other lower respiratory disease (2 sources) Dyspnea; Translations: [Shortness of breath] Onset: 04-22-2012 04-22-2012 Episodic Other skin disorders (1 source) Rash and other nonspecific skin eruption; Translations: [Rash and other nonspecific skin eruption] Onset: 03-26-2024 Episodic Other upper respiratory disease (1 source) Nasal congestion; Translations: [Nasal congestion] Onset: 05-06-2024 Episodic Other upper respiratory disease (1 source) Other specified disorders of nose and nasal sinuses; Translations: [Other specified disorders of nose and nasal sinuses] Onset: 05-06-2024 Episodic Unclassified (10 sources) Body mass index (BMI) 27.0-27.9, adult; Translations: [Body mass index (BMI) 26.0-26.9, adult] Onset: 09-14-2013 Resolved: 10-30-2015 09-14-2013 Episodic Urinary tract infections (20 sources) Urinary tract infectious disease; Translations: [Urinary tract infection, site not specified] Onset: 04-19-2024 Episodic Results Test Name Value Interpretation Reference Range Facility Urine Cultureon 10-30-2024 [facility] Urine Culture Urine Culture Strep anginosus [place] Count 11,000-25,000 Streptococcus sanguinis Streptococcus sanguinis Strep anginosus: REACTION Ampicillin Islt NAMITA <=0.25 S Penicillin G Islt NAMITA <=0.06 Cefotaxime Islt NAMITA <=0.12 S cefTRIAXone Islt NAMITA <=0.12 S Clindamycin Islt NAMITA <=0.25 S Linezolid Islt NAMITA <=2 S Vancomycin Islt NAMITA 0.5 S Streptococcus sanguinis: REACTION Ampicillin Islt NAMITA <=0.25 S Penicillin G Islt NAMITA <=0.06 Cefotaxime Islt NAMITA <=0.12 S cefTRIAXone Islt NAMITA <=0.12 S Linezolid Islt NAMITA <=2 S Vancomycin Islt NAMITA 0.5 S Normal [facility] Comment on above: Performed By: #### M 100.8192 #### [facility] [address] [place], [address] Laboratory - Chemistry and C hemistry - challengeOrdered By: Raul Durham on 10-22-2024 Bilirubin Ql (U) Negative [facility] Glucose Ql (U) Negative [facility] Ketones Ql (U) Negative [facility] pH (U) 5.0 [pH] [facility] Specific gravity (U) [Rel density] 1.005 [facility] Urobilinogen (U) [Mass/Vol] 0.8011665 mg/dL [facility] Laboratory - Hematology and Cell countsOrdered By: Raul Durham on 10-22-2024 Hemoglobin Ql (U) Negative [facility] - Specimen inform ationOrdered By: Raul Durham on 10-22-2024 Clarity (U) Clear [facility] Color (U) Yellow [facility] Laboratory - UrinalysisOrder ed By: Raul Durham on 10-22-2024 Nitrite Ql (U) Negative [facility] Protein Ql (U) Negative [facility] No Panel InformationOrdered By: Raul Durham on 10-22-2024 Urine Leukocytes Positive [facility] Urine Non-Hemolyzed Blood Negative [facility] Urgent Care Visit Reporton 0 10-22-2024 Urgent Care Visit Report [facility] [address], [address] [place] [address] OFFICE VISIT Date of Service: 10/22/24 MR#: [id number] Acct: [id number] Name: MARIA ESTHER FINNEY Rep #: [id number] : 1940 Provider: ABDULAZIZ fischer Age/Sex: 84/F Location: [facility] [facility] Status: Signed Intake Vital Signs 10/11/24 13:06 10/22/24 08:21 Height 5 ft 2 in Weight: 157 lb BMI 28.7 BP 148/76 H 118/60 Blood Pressure Location Lt brachial Position Sitting Sitting Respiration 16 16 Pulse 55 L 57 L Pulse Source Monitor Temp 97.9 F 97.8 F Temp Source Temporal Oral Pulse Oximetry (%) 99 96 Oxygen Delivery Method room air room air Intake Visit Reasons: CONCERN FOR UTI Accompanied by: Daughter Allergies No Known Allergies Allergy (Verified 10/22/24 08:18) Medications ???Medication ???Instructions ???Recorded ???Confirmed ???Type ascorbic acid (vitamin C) 500 mg 500 mg PO QDAY supplement 09/14/17 10/22/24 History tablet multivitamin 1 tab PO DAILY supplement 06/29/18 10/22/24 History inhalational spacing device #1 ea 11/07/20 10/22/24 Rx acetaminophen 500 mg tablet 1,000 mg (2 x 500 mg) PO Q8 #0 tab s 11/18/21 10/22/24 Rx sennosides 8.6 mg-docusate sodium 2 tab PO BID #0 tabs 11/18/21 Rx 50 mg tablet (Stool Softener-Stimulant Laxative) lysine 500 mg tablet 500 mg PO DAILY 02/12/22 10/22/24 History nebulizer #1 ea 02/12/22 10/22/24 Rx ipratropium 0.5 mg-albuterol 3 mg 3 ml inhalation Q4H PRN shortness 07/31/22 10/22/24 Rx (2.5 mg base)/3 mL nebulization of breath or wheezing #180 mL soln ferrous sulfate 325 mg (65 mg 325 mg PO DAILY 02/17/23 10/22/24 History iron) tablet pregabalin 25 mg capsule 150 mg PO BID 01/31/24 10/22/24 Hi story albuterol sulfate 90 mcg/actuation See Rx Instructions .Route 04/1710/22/24 Rx aerosol inhaler .COMPLEX #36 grams atorvastatin 20 mg tablet See Rx Instructions .Route 4 10/22/24 Rx .COMPLEX #90 tabs omeprazole 40 mg capsule,delayed 40 mg PO DAILY #90 caps 05/01/24 0 10/22/24 Rx release losartan 50 mg tablet 50 mg PO DAILY #90 tabs 06/14/24 0 10/22/24 Rx apixaban 2.5 mg tablet 2.5 mg PO BID #180 tabs 06/29/24 0 10/22/24 Rx levothyroxine 137 mcg tablet 137 mcg PO DAILY #90 TABLETS 07/1810/22/24 Rx (Synthroid) albuterol sulfate 1.25 mg/3 mL 1.25 mg (3 mL) inhalation Q4H #90 07/20/24 10/22/24 Rx solution for nebulization mL carvedilol 25 mg tablet 25 mg PO BID #60 tabs 10/09/24 Rx amoxicillin 875 mg-potassium 1 tab PO BID 7 days #14 tabs 10/2210/22/24 Rx clavulanate 125 mg tablet Have you fallen in the past year?: No Nurse's Note: Patient has UTI concerns. Patient daughter states her legs are swollen and Patient states she doesn't feel good. Patient did do a at home test for a UTI and it came back positive. Patient states this has been going on a couple weeks. [facility] Medical History Acute bronchitis UTI (urinary tract infection) A-fib PAF (paroxysmal atrial fibrillation) Valvular heart disease Peripheral neuropathy Neuropathy Hyponatremia Hypothyroidism Nonrheumatic aortic (valve) insufficiency Nonrheumatic mitral (valve) insufficiency Non-rheumatic tricuspid valve insufficiency Pure hypercholesterolemia Hernia Abnormal electrocardiogram Mitral insufficiency, acute Abnormal pulmonary function test Chest discomfort Dyspnea ( 01/30/21) HLD (hyperlipidemia) Atherosclerotic heart disease of [place] coronary artery without angina pectoris Essential (primary) hypertension Surgical History History of cataract surgery History of hip surgery S/P right rotator cuff repair History of bladder suspension procedure History of thyroidectomy History of hysterectomy History of tubal ligation History of appendectomy History of hernia repair History of repair of hiatal hernia Family History Mother CVA (cerebral vascular accident) Brother CAD (coronary artery disease) Sister CAD (coronary artery disease) Myocardial infarction Son CAD (coronary artery disease) Social History household members: significant other Smoking Status: Never smoker alcohol intake: never substance use type: does not use caffeine: No what type of physical activity do you participate in: other details: [employer] HPI HPI Details: MARIA ESTHER FINNEY: The patient is an 84-year-old female presenting with concerns for a possible urinary tract infection. Reports dysuria and urinary urgency, denies CVA tenderness. U (more content not included)... Normal [facility] Bilirubin Test strip Ql (U)O rdered By: Mely Epperson on 10-11-2024 Bilirubin Ql (U) Negative Negative [facility] Internal Medicine Office Vis bharath 10-11-2024 Internal Medicine Office Visit [facility] [address] [place] [address] OFFICE VISIT Date of Service: 10/11/24 MR#: [id number] Acct: [id number] Name: MARIA ESTHER FINNEY Rep #: [id number] : 1940 Provider: Dr. Mely mejia, DO Age/Sex: 84/F Location: [facility] [place] [facility] Status: Signed Intake Vital Signs 06/14/24 13:29 09/20/24 13:25 10/11/24 13:06 Height 5 ft 3 in 5 ft 2 in 5 ft 2 in Weight: 157 lb BMI 28.7 BP 148/76 H Blood Pressure Location Lt brachial Position Sitting Respiration 16 Pulse 55 L Pulse Source Monitor Temp 97.9 F Temp Source Temporal Pulse Oximetry (%) 99 Oxygen Delivery Method room air Intake Visit Reasons: 4 M FU Chief Complaint: Right leg swelling. Remedial Reading Teacher Required: No Accompanied by: Daughter Is patient in pain?: No Allergies No Known Allergies Allergy (Verified 10/11/24 12:54) Medications ???Medication ???Instructions ???Recorded ???Confirmed ???Type ascorbic acid (vitamin C) 500 mg 500 mg PO QDAY supplement 09/14/17 10/11/24 History tablet multivitamin 1 tab PO DAILY supplement 06/29/18 10/11/24 History inhalational spacing device #1 ea 11/07/20 10/11/24 Rx acetaminophen 500 mg tablet 1,000 mg (2 x 500 mg) PO Q8 #0 tab s 11/18/21 10/11/24 Rx sennosides 8.6 mg-docusate sodium 2 tab PO BID #0 tabs 11/18/2103/27 Rx 50 mg tablet (Stool Softener-Stimulant Laxative) lysine 500 mg tablet 500 mg PO DAILY 02/12/22 10/11/24 History nebulizer #1 ea 02/12/22 10/11/24 Rx ipratropium 0.5 mg-albuterol 3 mg 3 ml inhalation Q4H PRN shortness 07/31/22 10/11/24 Rx (2.5 mg base)/3 mL nebulization of breath or wheezing #180 mL soln ferrous sulfate 325 mg (65 mg 325 mg PO DAILY 02/17/23 10/11/24 History iron) tablet pregabalin 25 mg capsule 150 mg PO BID 01/31/24 10/11/24 Hi story albuterol sulfate 90 mcg/actuation See Rx Instructions .Route 04/1710/11/24 Rx aerosol inhaler .COMPLEX #36 grams atorvastatin 20 mg tablet See Rx Instructions .Route 4 10/11/24 Rx .COMPLEX #90 tabs omeprazole 40 mg capsule,delayed 40 mg PO DAILY #90 caps 05/01/24 0 10/11/24 Rx release losartan 50 mg tablet 50 mg PO DAILY #90 tabs 06/14/24 0 10/11/24 Rx apixaban 2.5 mg tablet 2.5 mg PO BID #180 tabs 06/29/24 0 10/11/24 Rx levothyroxine 137 mcg tablet 137 mcg PO DAILY #90 TABLETS 07/1810/11/24 Rx (Synthroid) albuterol sulfate 1.25 mg/3 mL 1.25 mg (3 mL) inhalation Q4H #90 07/20/24 10/11/24 Rx solution for nebulization mL carvedilol 25 mg tablet 25 mg PO BID #60 tabs 10/09/2403/27 Rx Have you fallen in the past year?: No Nurse's Note: Pt [facility], prescribed macrobid, and was found not sensitive after culture. Dc'd and finished course of augmentin. Pt never exhibits sx's but acts goofy. Daughter has not had any c/o abnormal behavior but wants her rechecked. Wants to know if methenamine should be finished as she is uncertain if it will keep uti's away. Pt has had ongoing swelling in RLE, Pt has pain that hurts all the time compression stocking do not help any longer, pt does ice qd and elevate. Pt states pain is worse at bedtime. As soon as she starts walking pain eases, but then the swelling starts back up. Pt does have neuropathy and sometimes struggles to walk. [facility] Medical History Acute bronchitis UTI (urinary tract infection) A-fib PAF (paroxysmal atrial fibrillation) Valvular heart disease Peripheral neuropathy Neuropathy Hyponatremia Hypothyroidism Nonrheumatic aortic (valve) insufficiency Nonrheumatic mitral (valve) insufficiency Non-rheumatic tricuspid valve insufficiency Pure hypercholesterolemia Hernia Abnormal electrocardiogram Mitral insufficiency, acute Abnormal pulmonary function test Chest discomfort Dyspnea ( 01/30/21) HLD (hyperlipidemia) Atherosclerotic heart disease of [place] coronary artery without angina pectoris Essential (primary) hypertension Surgical History History of cataract surgery History of hip surgery S/P right rotator cuff repair History of bladder suspension procedure History of thyroidectomy History of hysterectomy History of tubal ligation History of appendectomy History of hernia repair History of repair of hiatal hernia Family History Mother CVA (cerebral vascular accident) Brother CAD (coronary artery disease) Sister CAD (coronary artery disease) Myocardial infarction Son CAD (coronary artery disease) Social History household members: significant other Smoki (more content not included)... Normal [facility] Ketones Test strip Ql (U)Ord ered By: Mely Epperson on 10-11-2024 Ketones Ql (U) Negative Negative [facility] Microscopic analysis of urin e for red blood cells (RBC)Ordered By: Mely Epperson on 10-11-2024 Microscopic analysis of urine for red blood cells (RBC) 0-5 SEEN /hpf 0-5 [facility] Mucus LM Ql (Urine sed)Order ed By: Mely Epperson on 10-11-2024 Mucus Ql (Urine sed) 0 SEEN /hpf [facility] Nitrite Test strip Ql (U)Ord ered By: Mely Epperson on 10-11-2024 Nitrite Ql (U) Negative Negative [facility] Protein Test strip Ql (U)Ord ered By: Mely Epperson on 10-11-2024 Protein Ql (U) 15 mg/dl High Negative [facility] Squamous epithelial cells de tection in urine sediment by light microscopyOrdered By: Mely Epperson on 10-11-2024 Epithelial cells.squamous LM Ql (Urine sed) 0-5 SEEN /hpf 5-10 [facility] Transitional cells detection in urine sediment by light microscopyOrdered By: Mely Epperson on 10-11-2024 Transitional cells LM Ql (Urine sed) 0-5 SEEN /hpf 0-5 [facility] Urinalysis, Completeon 10-11 RBC 0-5 SEEN Normal 0-5 [facility] Comment on above: Order Comment: LOUIE CTOR TO SPECIFY Performed By: #### M 100.2200 #### [facility] [address] [place], [address] WBC 5-10 SEEN Normal 0-5 [facility] Comment on above: Order Comment: LOUIE CTOR TO SPECIFY Performed By: #### M 100.2200 #### [facility] [address] [place], [address] EPI,SQUAMOUS 0-5 SEEN Normal 5-10 [facility] Comment on above: Order Comment: LOUIE CTOR TO SPECIFY Performed By: #### M 100.2200 #### [facility] [address] [place], [address] EPI,TRANSITION 0-5 SEEN Normal 0-5 [facility] Comment on above: Order Comment: LOUIE CTOR TO SPECIFY Performed By: #### M 100.2200 #### [facility] [address] [place], [address] BACTERIA 0 SEEN Normal None Seen [facility] Comment on above: Order Comment: LOUIE CTOR TO SPECIFY Performed By: #### M 100.2200 #### [facility] [address] [place], [address] Mucus Ql (Urine sed) 0 SEEN Normal [facility] Comment on above: Order Comment: LOUIE CTOR TO SPECIFY Performed By: #### M 100.2200 #### [facility] [address] [place], [address] Urine clarityOrdered By: Ra glas Brown on 10-11-2024 Clarity (U) Clear Clear [facility] Urine color determinationOrd ered By: Mely Brown on 10-11-2024 Color (U) Straw Yellow [facility] Urine glucose detectionOrder ed By: Mely Epperson on 10-11-2024 Glucose Ql (U) Normal mg/dl Normal [facility] Urine leukocyte esterase det ection by dipstickOrdered By: Mely Epperson on 10-11-2024 Leukocyte esterase Test strip Ql (U) 100 /ul High Negative [facility] Urine pHOrdered By: Mely Epperson on 10-11-2024 pH (U) 6.5 [pH] 5.0 - 8.0 [facility] Urine sediment bacteria coun t by microscopy (number/high power field)Ordered By: Melyge Epperson on 10-11-2024 Bacteria LM.HPF (Urine sed) [#/Area] 0 /[HPF] None Seen [facility] Urine specific gravity measu rementOrdered By: Mely Geo on 10-11-2024 Specific gravity (U) [Rel density] 1.010 1.002-1.03 0 [facility] Urine urobilinogen measureme ntOrdered By: Mely Geo on 10-11-2024 Urobilinogen Ql (U) Normal mg/dl Normal [facility] White blood cell countOrdere d By: Mely Geo on 10-11-2024 White blood cell count 5-10 SEEN /hpf 0-5 [facility] Urine Cultureon 09-21-2024 [facility] Streptococcus agalac tiae (B) [place] Count 80,000-100,000 Streptococcus agalactiae (B): REACTION Ampicillin Islt NAMITA <=0.25 cefTRIAXone Islt NAMITA <=0.12 S Clindamycin.induced Susc Islt NEG Linezolid Islt NAMITA <=2 S Vancomycin Islt NAMITA 0.5 S Normal [facility] Comment on above: Performed By: #### M 100.2200 #### [facility] [address] [place], [address] 12 Lead EKG performed by [facility] on 09-20-2024 12 Lead EKG performed by [facility] [address] [place] [address] 12 Lead EKG performed by [facility] 09/20/24 1702 MR#: [id number] Acct: [id number] Name: MARIA ESTHER FINNEY Rep #: [id number] : 1940 84 From: Chad Tony MD Attending Dr: Dr. Chad Tony MD Status: RE G AMB Ordering Dr: Chad Tony MD Date: 09/20/24 Location: [facility] Sex: F C Admitted: BMS/12 Lead EKG performed by [facility] ECG Report Interpretation -Possible atrial fibrillation -Right bundle branch block. - Negative T-waves -Possible Inferior ischemia. ABNORMAL No New Changes Compared to 06/07/2023 ECGElectronically signed on 09/20/2024 at 13:[address] Chad Tony [employer] Version [id number] 09/20/24 1348 Date Chad Tony MD CC: Dr. Mely Epperson, Date Dictated: 09/20/241701 Date Transcribed: 09/20/241701 [employer] Taxi Operator: Signed Normal [facility] 12 lead electrocardiography reportOrdered By: Chad Tony on 09-20-2024 EKG study [address] [address] 12 Lead EKG performed by [facility] 09/20/241701 MR#: [id number] Acct: [id number] Name: MARIA ESTHER FINNEY Rep #:[id number] : 1940 84 From: Chad marques MD Attending Dr: Dr. Chad Tony MD Status: REG AMB Ordering Dr: Chad Tony MD Date: 09/20/24 Location: [facility] Sex: F C Admitted: BMS/12 Lead EKG performed by [facility] ECG Report Interpretation -Possible atrial fibrillation -Right bundle branch block. - Negative T-waves -Possible Inferior ischemia. ABNORMAL No New Changes Compared to 06/07/2023 ECGElectronically signed on 09/20/2024 at 13:[address] Chad Tony [employer] Version [id number] 09/20/24 1348 Date _ Chad Tony MD CC: Dr. Mely Epperson, DO ~ Date Dictated: 09/20/241701 Date Transcribed: 09/20/241701 Water Taxi Operator: NICHELLE Signed [facility] Work Phone: Cardiology Visit Reporton Cardiology Visit Report [facility] [address] [place] [address] OFFICE VISIT Date of Service: 09/20/24 MR#: [id number] Acct: [id number] Name: MARIA ESTHER FINNEY Rep #: [id number] : 1940 Provider: Dr. Chad aj MD Age/Sex: 84/F Location: [facility] [facility] Status: Signed HPI HPI History of Present Illness Details: Patient is a pleasant 84-year-old white female that comes today with her daughter for monitoring of her cardiovascular status. The patient was actually seen in the emergency department yesterday evening when she was sent to the hospital because of right lower extremity swelling by her primary service. The patient did not have a DVT her ultrasound of her right lower extremity was negative. She has been on long-term Eliquis for her atrial fibrillation. The patient's blood pressure is elevated in the office today at 191/93 it was 202 in the emergency room yesterday. ECG done in the office today shows atrial fibrillation which is known to be chronic right bundle branch block which is chronic and negative T waves in the inferior leads. This represents no new changes compared to June 07, 2023. Patient denies any chest pain denies any syncope or near syncope denies any significant shortness of breath. She has a history of nonobstructive coronary artery disease on a remote cath in 2011. She also has a history of hyperlipidemia which has been well-controlled as of June 2023. Intake Vital Signs 08/02/24 14:21 09/19/24 15:22 09/20/24 13:25 Height 5 ft 3 in 5 ft 2 in 5 ft 2 in Weight: 157 lb BMI 28.7 BP 191/94 H Blood Pressure Location Lt brachial Position Sitting Respiration 18 Pulse 63 Pulse Source Monitor Pulse Oximetry (%) 94 Oxygen Delivery Method room air Intake Visit Reasons: 6 M FU Remedial Reading Teacher Required: No Is patient in pain?: No Allergies No Known Allergies Allergy (Verified 09/20/24 13:25) Medications ???Medication ???Instructions ???Recorded ???Confirmed ???Type ascorbic acid (vitamin C) 500 mg 500 mg PO QDAY supplement 09/14/17 09/20/24 History tablet multivitamin 1 tab PO DAILY supplement 06/29/18 09/20/24 History inhalational spacing device #1 ea 11/07/20 09/19/24 Rx acetaminophen 500 mg tablet 1,000 mg (2 x 500 mg) PO Q8 #0 tab s 11/18/21 09/20/24 Rx sennosides 8.6 mg-docusate sodium 2 tab PO BID #0 tabs 11/18/21 Rx 50 mg tablet (Stool Softener-Stimulant Laxative) lysine 500 mg tablet 500 mg PO DAILY 02/12/22 09/20/24 History nebulizer #1 ea 02/12/22 09/19/24 Rx ipratropium 0.5 mg-albuterol 3 mg 3 ml inhalation Q4H PRN shortness 07/31/22 09/20/24 Rx (2.5 mg base)/3 mL nebulization of breath or wheezing #180 mL soln ferrous sulfate 325 mg (65 mg 325 mg PO DAILY 02/17/23 09/20/24 History iron) tablet pregabalin 25 mg capsule 150 mg PO BID 01/31/24 09/20/24 Hi story albuterol sulfate 90 mcg/actuation See Rx Instructions .Route 04/1709/20/24 Rx aerosol inhaler .COMPLEX #36 grams atorvastatin 20 mg tablet See Rx Instructions .Route 4 09/20/24 Rx .COMPLEX #90 tabs omeprazole 40 mg capsule,delayed 40 mg PO DAILY #90 caps 05/01/24 0 09/20/24 Rx release losartan 50 mg tablet 50 mg PO DAILY #90 tabs 06/14/24 0 09/20/24 Rx methenamine hippurate 1 gram tablet 1 g PO ONCE 06/28/24 09/20/24 H istory apixaban 2.5 mg tablet 2.5 mg PO BID #180 tabs 06/29/24 0 09/20/24 Rx levothyroxine 137 mcg tablet 137 mcg PO DAILY #90 TABLETS 07/1809/20/24 Rx (Synthroid) albuterol sulfate 1.25 mg/3 mL 1.25 mg (3 mL) inhalation Q4H #90 07/20/24 09/20/24 Rx solution for nebulization mL nitrofurantoin 100 mg PO Q12H 5 days #10 caps 09/20/24 Rx monohydrate/macrocrystals 100 mg capsule (Macrobid) carvedilol 12.5 mg tablet (Coreg) 12.5 mg PO BID #60 tabs 09/20/24 09/20/24 Rx Ejection fraction %: 60 Have you fallen in the past year?: No PFSH Medical History Acute bronchitis UTI (urinary tract infection) A-fib PAF (paroxysmal atrial fibrillation) Valvular heart disease Peripheral neuropathy Neuropathy Hyponatremia Hypothyroidism Nonrheumatic aortic (valve) insufficiency Nonrheumatic mitral (valve) insufficiency Non-rheumatic tricuspid valve insufficiency Pure hypercholesterolemia Hernia Abnormal electrocardiogram Mitral insufficiency, acute Abnormal pulmonary function test Chest discomfort Dyspnea ( 01/30/21) HLD (hyperlipidemia) Atherosclerotic heart disease of [place] coronary artery without angina pectoris Essential (primary) hypertension Surgical History History of cataract surgery History of hip surgery S/P right rotat (more content not included)... Normal [facility] Emergency Department Summary on 09-19-2024 Emergency Department Summary [facility] Medical Records Department [address] [place] [address] Emergency Department Summary 09/19/24 MR#: [id number] Acct: [id number] Name: MARIA ESTHER FINNEY Rep #: [id number] : 1940 84 From: Uvaldo Bowman PCP: Dr. Mely Epperson, DO Status:DEP ER Location: ED HPI History of Present Illness Chief Complaint: Lower Extremity Injury Informant: patient and family Narrative Narrative: Sent from urgent care for right lower extremity swelling rule out DVT. She has family on and off swelling. No history of DVT. Urgent care family waxing waning memory gets frequent UTIs. States testing positive for UTI given prescription for Macrobid. On arrival blood pressure 202/90 systolic. Family reports blood pressure up-and-down may see cardiology tomorrow. She missed this morning's dose. States that very brief headache earlier is resolved. No chest pain no shortness of breath. Prior similar symptoms: Yes PFSH PFS Medical History Acute bronchitis UTI (urinary tract infection) A-fib PAF (paroxysmal atrial fibrillation) Valvular heart disease Peripheral neuropathy Neuropathy Hyponatremia Hypothyroidism Nonrheumatic aortic (valve) insufficiency Nonrheumatic mitral (valve) insufficiency Non-rheumatic tricuspid valve insufficiency Pure hypercholesterolemia Hernia Abnormal electrocardiogram Mitral insufficiency, acute Abnormal pulmonary function test Chest discomfort Dyspnea ( 01/30/21) HLD (hyperlipidemia) Atherosclerotic heart disease of [place] coronary artery without angina pectoris Essential (primary) hypertension Home Medications ???Medication ???Instructions ???Recorded ???Last Taken ???Type ascorbic acid (vitamin C) 500 mg 500 mg PO QDAY supplement 09/14/17 Unknown History tablet multivitamin 1 tab PO DAILY supplement 06/29/18 Unknown History inhalational spacing device #1 ea 11/07/20 Unknown Rx acetaminophen 500 mg tablet 1,000 mg (2 x 500 mg) PO Q8 #0 tab s 11/18/21 Unknown Rx sennosides 8.6 mg-docusate sodium 2 tab PO BID #0 tabs 11/18/21 Unk nown Rx 50 mg tablet (Stool Softener-Stimulant Laxative) lysine 500 mg tablet 500 mg PO DAILY 02/12/22 Unknown H istory nebulizer #1 ea 02/12/22 Unknown Rx ipratropium 0.5 mg-albuterol 3 mg 3 ml inhalation Q4H PRN shortness 07/31/22 Unknown Rx (2.5 mg base)/3 mL nebulization of breath or wheezing #180 mL soln ferrous sulfate 325 mg (65 mg 325 mg PO DAILY 02/17/23 Unknown H istory iron) tablet Kenalog 40 mg/mL suspension for 20 mg (0.5 mL) Tendon Sheath Inj. 06/17/23 Unknown Clinic injection (triamcinolone acetonide) ONCE trigger finger #0.5 mL pregabalin 25 mg capsule 150 mg PO BID 01/31/24 Unknown His tory sulfacetamide sodium 10 % eye drops 1 drp ophthalmic (eye) Q4H #15 mL 02/09/24 Unknown Rx albuterol sulfate 90 mcg/actuation See Rx Instructions .Route 04/17 Unknown Rx aerosol inhaler .COMPLEX #36 grams atorvastatin 20 mg tablet See Rx Instructions .Route 4 Unknown Rx .COMPLEX #90 tabs omeprazole 40 mg capsule,delayed 40 mg PO DAILY #90 caps 05/01/24 U nknown Rx release losartan 50 mg tablet 50 mg PO DAILY #90 tabs 06/14/24 U nknown Rx methenamine hippurate 1 gram tablet 1 g PO ONCE 06/28/24 Unknown Hi story apixaban 2.5 mg tablet 2.5 mg PO BID #180 tabs 06/29/24 U nknown Rx metoprolol tartrate 25 mg tablet 25 mg PO .AM #90 tabs 07/17/24 Unk nown Rx metoprolol tartrate 50 mg tablet 50 mg PO QHS heart/BP #90 tabs Unknown Rx levothyroxine 137 mcg tablet 137 mcg PO DAILY #90 TABLETS 07/18 Unknown Rx (Synthroid) albuterol sulfate 1.25 mg/3 mL 1.25 mg (3 mL) inhalation Q4H #90 07/20/24 Unknown Rx solution for nebulization mL prednisone 10 mg tablet 10 mg PO DIRECTED #15 tabs 04/0 06/27 Unknown Rx nitrofurantoin 100 mg PO Q12H 5 days #10 caps Unknown Rx monohydrate/macrocrystals 100 mg capsule (Macrobid) Allergy/AdvReac Type Severity Reaction Status Date / Time No Known Allergies Allergy Verified 09/19/24 15:22 Family History Mother CVA (cerebral vascular accident) Brother CAD (coronary artery disease) Sister CAD (coronary artery disease) Myocardial infarction Son CAD (coronary artery disease) Surgical History History of cataract surgery History of hip surgery S/P right rotator cuff repair History of bladder suspension procedure History of thyroidectomy History of hysterectomy History of tubal ligation History of appendectomy History of hernia repair History of repair of hiatal hernia Social History household members: signifi (more content not included)... Normal [facility] Laboratory - Chemistry and C hemistry - challengeOrdered By: Long Paul on 09-19-2024 Bilirubin Ql (U) Negative [facility] Glucose Ql (U) Negative [facility] Ketones Ql (U) Negative [facility] pH (U) 5.0 [pH] [facility] Specific gravity (U) [Rel density] 1.005 [facility] Urobilinogen (U) [Mass/Vol] 0.2001340 mg/dL [facility] - Hematology and Cell countsOrdered By: Long Paul on 09-19-2024 Hemoglobin Ql (U) Negative [facility] - Specimen inform ationOrdered By: Long Paul on 09-19-2024 Clarity (U) Clear [facility] Color (U) YELLOW [facility] Laboratory - UrinalysisOrder ed By: Long Paul on 09-19-2024 Nitrite Ql (U) Negative [facility] Protein Ql (U) Negative [facility] No Panel InformationOrdered By: Long Paul on 09-19-2024 Urine Leukocytes Positive [facility] Comment on above: Moderate Urine Non-Hemolyzed Blood Negative [facility] Urgent Care Visit Reporton 0 09-19-2024 Urgent Care Visit Report [facility] [address], [address] [place] [address] OFFICE VISIT Date of Service: 09/19/24 MR#: [id number] Acct: [id number] Name: MARIA ESTHER FINNEY Rep #: [id number] : 1940 Provider: ENE Da Silva Age/Sex: 84/F Location: [facility] [place] Status: Signed Intake Vital Signs 09/06/24 13:56 09/19/24 14:52 Height 5 ft 3 in Weight: 157 lb BMI 27.8 BP 128/72 H 182/90 H Blood Pressure Location Rt brachial Position Sitting Sitting Respiration 16 0 L Pulse 55 L 62 Temp 98.4 F 98.0 F Temp Source Temporal Oral Pulse Oximetry (%) 96 95 Oxygen Delivery Method room air room air Intake Visit Reasons: CONCERN FOR UTI Accompanied by: Daughter Allergies No Known Allergies Allergy (Verified 09/19/24 15:06) Medications ???Medication ???Instructions ???Recorded ???Confirmed ???Type ascorbic acid (vitamin C) 500 mg 500 mg PO QDAY supplement 09/14/17 09/19/24 History tablet multivitamin 1 tab PO DAILY supplement 06/29/18 09/19/24 History inhalational spacing device #1 ea 11/07/20 09/19/24 Rx acetaminophen 500 mg tablet 1,000 mg (2 x 500 mg) PO Q8 #0 tab s 11/18/21 09/19/24 Rx sennosides 8.6 mg-docusate sodium 2 tab PO BID #0 tabs 11/18/21 Rx 50 mg tablet (Stool Softener-Stimulant Laxative) lysine 500 mg tablet 500 mg PO DAILY 02/12/22 09/19/24 History nebulizer #1 ea 02/12/22 09/19/24 Rx ipratropium 0.5 mg-albuterol 3 mg 3 ml inhalation Q4H PRN shortness 07/31/22 09/19/24 Rx (2.5 mg base)/3 mL nebulization of breath or wheezing #180 mL soln ferrous sulfate 325 mg (65 mg 325 mg PO DAILY 02/17/23 09/19/24 History iron) tablet pregabalin 25 mg capsule 150 mg PO BID 01/31/24 09/19/24 Hi story sulfacetamide sodium 10 % eye drops 1 drp ophthalmic (eye) Q4H #15 mL 02/09/24 09/19/24 Rx albuterol sulfate 90 mcg/actuation See Rx Instructions .Route 04/1709/19/24 Rx aerosol inhaler .COMPLEX #36 grams atorvastatin 20 mg tablet See Rx Instructions .Route 4 09/19/24 Rx .COMPLEX #90 tabs omeprazole 40 mg capsule,delayed 40 mg PO DAILY #90 caps 05/01/24 0 09/19/24 Rx release losartan 50 mg tablet 50 mg PO DAILY #90 tabs 06/14/24 0 09/19/24 Rx methenamine hippurate 1 gram tablet 1 g PO ONCE 06/28/24 09/19/24 H istory apixaban 2.5 mg tablet 2.5 mg PO BID #180 tabs 06/29/24 0 09/19/24 Rx metoprolol tartrate 25 mg tablet 25 mg PO .AM #90 tabs 07/17/24 Rx metoprolol tartrate 50 mg tablet 50 mg PO QHS heart/BP #90 tabs 09/19/24 Rx levothyroxine 137 mcg tablet 137 mcg PO DAILY #90 TABLETS 07/1809/19/24 Rx (Synthroid) albuterol sulfate 1.25 mg/3 mL 1.25 mg (3 mL) inhalation Q4H #90 07/20/24 09/19/24 Rx solution for nebulization mL prednisone 10 mg tablet 10 mg PO DIRECTED #15 tabs 04/06/2709/19/24 Rx nitrofurantoin 100 mg PO Q12H 5 days #10 caps 09/19/24 Rx monohydrate/macrocrystals 100 mg capsule (Macrobid) Have you fallen in the past year?: No Nurse's Note: Patient has burning and frequency with urination going on for 2-3 day. Patient daughter also states she is tired more. Patient daughter also said that her right ankle has been swelling up for the last couple weeks. [facility] Medical History Acute bronchitis UTI (urinary tract infection) A-fib PAF (paroxysmal atrial fibrillation) Valvular heart disease Peripheral neuropathy Neuropathy Hyponatremia Hypothyroidism Nonrheumatic aortic (valve) insufficiency Nonrheumatic mitral (valve) insufficiency Non-rheumatic tricuspid valve insufficiency Pure hypercholesterolemia Hernia Abnormal electrocardiogram Mitral insufficiency, acute Abnormal pulmonary function test Chest discomfort Dyspnea ( 01/30/21) HLD (hyperlipidemia) Atherosclerotic heart disease of [place] coronary artery without angina pectoris Essential (primary) hypertension Surgical History History of cataract surgery History of hip surgery S/P right rotator cuff repair History of bladder suspension procedure History of thyroidectomy History of hysterectomy History of tubal ligation History of appendectomy History of hernia repair History of repair of hiatal hernia Family History Mother CVA (cerebral vascular accident) Brother CAD (coronary artery disease) Sister CAD (coronary artery disease) Myocardial infarction Son CAD (coronary artery disease) Social History household members: significant other Smoking Status: Never smoker alcohol intake: never substance use type: does not use caffeine: No (more content not included)... Normal [facility] Urine cultureOrdered By: Ernesto Paul on 09-19-2024 Bacteria identified Cx Nom (U) Streptococcus agalactiae (B) Abnormal [facility] Venous Duplex US, Unilateral on 09-19-2024 Venous Duplex US, Unilateral [facility] [address] [place] [address] Venous Duplex US, Unilateral 09/19/24 1603 MR#: [id number] Acct: [id number] Name: MARIA ESTHER FINNEY Rep #: [id number] : 1940 84 From: Aayush Parham MD Attending Dr: Status: DEP ER Ordering Dr: Uvaldo Fine DO Date: 09/19/24 Location: ED Sex: F C Admitted: Reason For Study Reason For Study: RLE Pain RIGHT LEFT GSV is normal. CFV is compressible, spontaneous, phasic, competent, CFV is compressible, spontaneous, phasic, competent and demonstrates normal augmentation. and demonstrates normal augmentation. FV is compressible, spontaneous, phasic, competent and demonstrates normal augmentation. POP V is compressible, spontaneous, phasic, competent and demonstrates normal augmentation. T/P Trunk is compressible. PTV is compressible. RT PerV is compressible. Procedure This is a venous duplex using B-mode, color flow and spectral Doppler. Exam performed in department. The exam was diagnostic. A preliminary report was called and/or faxed to Dr. Fine. VL/Venous Duplex US, Unilateral Interpretation Summary Deep veins of the right lower extremity are patent and compressible segmentally. There is no evidence of right lower extremity deep vein thrombosis. Valvular competence appears intact within the proximal deep venous system on the right . The right great saphenous vein appears patent and compressible segmentally. The left common femoral vein is patent and compressible . ___ Ordering Physician: Uvaldo Fine Referring Physician: Mely Epperson Performed By: Deshawn Norman RVT 09/19/242252 Date Aayush Parham MD CC: Dr. Mely Epperson DO; Dr. Uvaldo Fine DO Date Dictated: 09/19/243 Date Transcribed: 09/19/242252 Water Taxi Operator: Signed [facility] Internal Medicine Office Vis ito 09-06-2024 Internal Medicine Office Visit [facility] [address] [place] [address] [place] [address] OFFICE VISIT Date of Service: 09/06/24 MR#: [id number] Acct: [id number] Name: MARIA ESTHER FINNEY Rep #: [id number] : 1940 Provider: ENE Mistry Age/Sex: 84/F Location: [facility] [place] Status: Signed Intake Vital Signs 08/02/24 14:21 09/06/24 13:56 Height 5 ft 3 in 5 ft 3 in Weight: 155 lb 8 oz 157 lb BMI 27.5 27.8 BP 128/76 H 128/72 H Blood Pressure Location Lt brachial Rt brachial Position Sitting Sitting Respiration 16 16 Pulse 74 55 L Pulse Source Monitor Temp 97.1 F L 98.4 F Temp Source Temporal Temporal Pulse Oximetry (%) 92 96 Oxygen Delivery Method room air room air Intake Visit Reasons: R knee injection Chief Complaint: right knee pain Remedial Reading Teacher Required: No Accompanied by: Self Is patient in pain?: Yes (right knee ) Pain scale (1-10): 8 Allergies No Known Allergies Allergy (Verified 09/06/24 13:50) Medications ???Medication ???Instructions ???Recorded ???Confirmed ???Type ascorbic acid (vitamin C) 500 mg 500 mg PO QDAY supplement 09/14/17 09/06/24 History tablet multivitamin 1 tab PO DAILY supplement 06/29/18 09/06/24 History inhalational spacing device #1 ea 11/07/20 09/06/24 Rx acetaminophen 500 mg tablet 1,000 mg (2 x 500 mg) PO Q8 #0 tab s 11/18/21 09/06/24 Rx sennosides 8.6 mg-docusate sodium 2 tab PO BID #0 tabs 11/18/2111/24 Rx 50 mg tablet (Stool Softener-Stimulant Laxative) lysine 500 mg tablet 500 mg PO DAILY 02/12/22 09/06/24 History nebulizer #1 ea 02/12/22 09/06/24 Rx ipratropium 0.5 mg-albuterol 3 mg 3 ml inhalation Q4H PRN shortness 07/31/22 09/06/24 Rx (2.5 mg base)/3 mL nebulization of breath or wheezing #180 mL soln ferrous sulfate 325 mg (65 mg 325 mg PO DAILY 02/17/23 09/06/24 History iron) tablet pregabalin 25 mg capsule 150 mg PO BID 01/31/24 09/06/24 Hi story sulfacetamide sodium 10 % eye drops 1 drp ophthalmic (eye) Q4H #15 mL 02/09/24 09/06/24 Rx albuterol sulfate 90 mcg/actuation See Rx Instructions .Route 04/1709/06/24 Rx aerosol inhaler .COMPLEX #36 grams atorvastatin 20 mg tablet See Rx Instructions .Route 4 09/06/24 Rx .COMPLEX #90 tabs omeprazole 40 mg capsule,delayed 40 mg PO DAILY #90 caps 05/01/24 0 09/06/24 Rx release losartan 50 mg tablet 50 mg PO DAILY #90 tabs 06/14/24 0 09/06/24 Rx methenamine hippurate 1 gram tablet 1 g PO ONCE 06/28/24 09/06/24 H istory apixaban 2.5 mg tablet 2.5 mg PO BID #180 tabs 06/29/24 0 09/06/24 Rx metoprolol tartrate 25 mg tablet 25 mg PO .AM #90 tabs 07/17/2411/24 Rx metoprolol tartrate 50 mg tablet 50 mg PO QHS heart/BP #90 tabs 09/06/24 Rx levothyroxine 137 mcg tablet 137 mcg PO DAILY #90 TABLETS 07/1809/06/24 Rx (Synthroid) albuterol sulfate 1.25 mg/3 mL 1.25 mg (3 mL) inhalation Q4H #90 07/20/24 09/06/24 Rx solution for nebulization mL prednisone 10 mg tablet 10 mg PO DIRECTED #15 tabs 06/2709/06/24 Rx Have you fallen in the past year?: No PFSH Medical History Acute bronchitis UTI (urinary tract infection) A-fib PAF (paroxysmal atrial fibrillation) Valvular heart disease Peripheral neuropathy Neuropathy Hyponatremia Hypothyroidism Nonrheumatic aortic (valve) insufficiency Nonrheumatic mitral (valve) insufficiency Non-rheumatic tricuspid valve insufficiency Pure hypercholesterolemia Hernia Abnormal electrocardiogram Mitral insufficiency, acute Abnormal pulmonary function test Chest discomfort Dyspnea ( 01/30/21) HLD (hyperlipidemia) Atherosclerotic heart disease of [place] coronary artery without angina pectoris Essential (primary) hypertension Surgical History History of cataract surgery History of hip surgery S/P right rotator cuff repair History of bladder suspension procedure History of thyroidectomy History of hysterectomy History of tubal ligation History of appendectomy History of hernia repair History of repair of hiatal hernia Family History Mother CVA (cerebral vascular accident) Brother CAD (coronary artery disease) Sister CAD (coronary artery disease) Myocardial infarction Son CAD (coronary artery disease) Social History household members: significant other Smoking Status: Never smoker alcohol intake: never substance use type: does not use caffeine: No what type of physical activity do you participate in: other details: [employer] HPI HPI Chief Complaint: right knee pain Details: MARIA ESTHER FINNEY, is a 84 F who presents to the office today for an (more content not included)... Normal [facility] Knee 3 Viewson 08-24-2024 Knee 3 Views [facility] [address] [place] [address] Knee 3 Views MR#: [id number] Acct: [id number] Name: MARIA ESTHER FINNEY Rep #: [id number] : 1940 F 84 From: Pedro Duran i, DO PCP: Dr. Mely Epperson, DO Status: REG CLI Study: Knee 3 Views Date of Exam: 08/24/24 Exam# [id number] Ordering Dr: Mely Epperson DO PROCEDURE: Right knee radiographs, three views 08/24/2024 REASON FOR EXAM: Right knee pain TECHNIQUE: Three views of the right knee were obtained. COMPARISON: None available FINDINGS: Three views of the right knee were obtained. The bones are osteopenic. No acute fracture or dislocation of the right knee. There is a small suprapatellar effusion. Moderate degenerative changes of the medial and patellofemoral compartments. Severe degenerative change of the lateral compartment. RAD/Knee 3 Views IMPRESSION: Osteopenia. No acute bony abnormality of the right knee. 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 Small suprapatellar effusion. Reading Location: [facility] CC: Dr. Mely Epperson DO Water Taxi Operator: Signed Normal [facility] Internal Medicine Office Vis itojose angel 08-02-2024 Internal Medicine Office Visit [facility] [address] [place], [place] [address] OFFICE VISIT Date of Service: 08/02/24 MR#: [id number] Acct: [id number] Name: MARIA ESTHER FINNEY Rep #: [id number] : 1940 Provider: Dr. Mely mejia DO Age/Sex: 84/F Location: [facility] [place] Status: Signed Intake Vital Signs 06/28/24 13:28 08/02/24 14:21 Height 5 ft 3 in 5 ft 3 in Weight: 159 lb 8 oz 155 lb 8 oz BMI 28.2 27.5 BP 128/76 H Blood Pressure Location Lt brachial Position Sitting Respiration 16 Pulse 74 Pulse Source Monitor Temp 97.1 F L Temp Source Temporal Pulse Oximetry (%) 92 Oxygen Delivery Method room air Intake Visit Reasons: SWOLLEN RT LEG/TROUBLE WALKING Chief Complaint: right leg pain Remedial Reading Teacher Required: No Accompanied by: Self Is patient in pain?: No Allergies No Known Allergies Allergy (Verified 08/02/24 14:20) Medications ???Medication ???Instructions ???Recorded ???Confirmed ???Type ascorbic acid (vitamin C) 500 mg 500 mg PO QDAY supplement 09/14/17 08/02/24 History tablet multivitamin 1 tab PO DAILY supplement 06/29/18 08/02/24 History inhalational spacing device #1 ea 11/07/20 08/02/24 Rx acetaminophen 500 mg tablet 1,000 mg (2 x 500 mg) PO Q8 #0 tab s 11/18/21 08/02/24 Rx sennosides 8.6 mg-docusate sodium 2 tab PO BID #0 tabs 11/18/2106/27 Rx 50 mg tablet (Stool Softener-Stimulant Laxative) lysine 500 mg tablet 500 mg PO DAILY 02/12/22 08/02/24 History nebulizer #1 ea 02/12/22 08/02/24 Rx ipratropium 0.5 mg-albuterol 3 mg 3 ml inhalation Q4H PRN shortness 07/31/22 08/02/24 Rx (2.5 mg base)/3 mL nebulization of breath or wheezing #180 mL soln ferrous sulfate 325 mg (65 mg 325 mg PO DAILY 02/17/23 08/02/24 History iron) tablet pregabalin 25 mg capsule 150 mg PO BID 01/31/24 08/02/24 Hi story sulfacetamide sodium 10 % eye drops 1 drp ophthalmic (eye) Q4H #15 mL 02/09/24 08/02/24 Rx albuterol sulfate 90 mcg/actuation See Rx Instructions .Route 04/1708/02/24 Rx aerosol inhaler .COMPLEX #36 grams atorvastatin 20 mg tablet See Rx Instructions .Route 4 08/02/24 Rx .COMPLEX #90 tabs omeprazole 40 mg capsule,delayed 40 mg PO DAILY #90 caps 05/01/24 0 08/02/24 Rx release losartan 50 mg tablet 50 mg PO DAILY #90 tabs 06/14/24 0 08/02/24 Rx methenamine hippurate 1 gram tablet 1 g PO ONCE 06/28/24 08/02/24 H istory apixaban 2.5 mg tablet 2.5 mg PO BID #180 tabs 06/29/24 0 08/02/24 Rx metoprolol tartrate 25 mg tablet 25 mg PO .AM #90 tabs 07/17/2406/27 Rx metoprolol tartrate 50 mg tablet 50 mg PO QHS heart/BP #90 tabs 08/02/24 Rx levothyroxine 137 mcg tablet 137 mcg PO DAILY #90 TABLETS 07/1808/02/24 Rx (Synthroid) albuterol sulfate 1.25 mg/3 mL 1.25 mg (3 mL) inhalation Q4H #90 07/20/24 08/02/24 Rx solution for nebulization mL prednisone 10 mg tablet 10 mg PO DIRECTED #15 tabs 06/2708/02/24 Rx Have you fallen in the past year?: No PFSH Medical History Acute bronchitis UTI (urinary tract infection) A-fib PAF (paroxysmal atrial fibrillation) Valvular heart disease Peripheral neuropathy Neuropathy Hyponatremia Hypothyroidism Nonrheumatic aortic (valve) insufficiency Nonrheumatic mitral (valve) insufficiency Non-rheumatic tricuspid valve insufficiency Pure hypercholesterolemia Hernia Abnormal electrocardiogram Mitral insufficiency, acute Abnormal pulmonary function test Chest discomfort Dyspnea ( 01/30/21) HLD (hyperlipidemia) Atherosclerotic heart disease of [place] coronary artery without angina pectoris Essential (primary) hypertension Surgical History History of cataract surgery History of hip surgery S/P right rotator cuff repair History of bladder suspension procedure History of thyroidectomy History of hysterectomy History of tubal ligation History of appendectomy History of hernia repair History of repair of hiatal hernia Family History Mother CVA (cerebral vascular accident) Brother CAD (coronary artery disease) Sister CAD (coronary artery disease) Myocardial infarction Son CAD (coronary artery disease) Social History household members: significant other Smoking Status: Never smoker alcohol intake: never substance use type: does not use caffeine: No what type of physical activity do you participate in: other details: [employer] HPI HPI Chief Complaint: right leg pain Details: MARIA ESTHER FINNEY, is a 84 F who presents to the office today for right leg pain. When I examine her basically what she has is knee pain, with (more content not included)... Normal [facility] Orthopedic Visit [facility]on Orthopedic Visit Report [facility] [address] [place] [address] OFFICE VISIT Date of Service: 06/28/24 MR#: [id number] Acct: [id number] Name: MARIA ESTHER FINNEY Rep #: [id number] : 1940 Provider: Dr. Mark bond, Age/Sex: 84/F Location: [facility] [place].HERB Status: Signed Intake Vital Signs 06/14/24 13:29 06/28/24 13:28 Height 5 ft 3 in 5 ft 3 in Weight: 159 lb 159 lb 8 oz BMI 28.1 28.2 BP 120/80 Blood Pressure Location Lt brachial Position Sitting Respiration 16 Pulse 70 Pulse Source Monitor Temp 96.6 F L Temp Source Temporal Pulse Oximetry (%) 97 Oxygen Delivery Method room air Intake Visit Reasons: LEFT HAND Chief Complaint: Left Hand - Ring Finger Accompanied by: Daughter Is patient in pain?: Yes Pain scale (1-10): 7 Allergies No Known Allergies Allergy (Verified 06/28/24 13:30) Medications ???Medication ???Instructions ???Recorded ???Confirmed ???Type ascorbic acid (vitamin C) 500 mg 500 mg PO QDAY supplement 09/14/17 06/28/24 History tablet multivitamin 1 tab PO DAILY supplement 06/29/18 06/28/24 History inhalational spacing device #1 ea 11/07/20 06/14/24 Rx acetaminophen 500 mg tablet 1,000 mg (2 x 500 mg) PO Q8 #0 tab s 07/19/22 02/26/25 Rx sennosides 8.6 mg-docusate sodium 2 tab PO BID #0 tabs 11/18/21 Rx 50 mg tablet (Stool Softener-Stimulant Laxative) lysine 500 mg tablet 500 mg PO DAILY 02/12/22 06/28/24 History nebulizer #1 ea 02/12/22 06/14/24 Rx ipratropium 0.5 mg-albuterol 3 mg 3 ml inhalation Q4H PRN shortness 07/31/22 06/28/24 Rx (2.5 mg base)/3 mL nebulization of breath or wheezing #180 mL soln albuterol sulfate 1.25 mg/3 mL 1.25 mg (3 mL) inhalation Q4H #90 09/01/22 06/28/24 Rx solution for nebulization mL ferrous sulfate 325 mg (65 mg 325 mg PO DAILY 02/17/23 06/28/24 History iron) tablet levothyroxine 137 mcg tablet 137 mcg PO DAILY #90 TABLETS 01/2406/28/24 Rx (Synthroid) metoprolol tartrate 50 mg tablet 50 mg PO QHS heart/BP #90 tabs 06/28/24 Rx pregabalin 25 mg capsule 150 mg PO BID 01/31/24 06/28/24 Hi story sulfacetamide sodium 10 % eye drops 1 drp ophthalmic (eye) Q4H #15 mL 02/09/24 06/28/24 Rx albuterol sulfate 90 mcg/actuation See Rx Instructions .Route 04/1706/28/24 Rx aerosol inhaler .COMPLEX #36 grams apixaban 2.5 mg tablet 2.5 mg PO BID #180 tabs 04/24/24 0 06/28/24 Rx atorvastatin 20 mg tablet See Rx Instructions .Route 4 06/28/24 Rx .COMPLEX #90 tabs metoprolol tartrate 25 mg tablet 25 mg PO .AM #90 tabs 05/01/24 Rx omeprazole 40 mg capsule,delayed 40 mg PO DAILY #90 caps 05/01/24 0 06/28/24 Rx release losartan 50 mg tablet 50 mg PO DAILY #90 tabs 06/14/24 0 06/28/24 Rx methenamine hippurate 1 gram tablet 1 g PO ONCE 06/28/24 06/28/24 H istory Have you fallen in the past year?: No PFSH Medical History Acute bronchitis UTI (urinary tract infection) A-fib PAF (paroxysmal atrial fibrillation) Valvular heart disease Peripheral neuropathy Neuropathy Hyponatremia Hypothyroidism Nonrheumatic aortic (valve) insufficiency Nonrheumatic mitral (valve) insufficiency Non-rheumatic tricuspid valve insufficiency Pure hypercholesterolemia Hernia Abnormal electrocardiogram Mitral insufficiency, acute Abnormal pulmonary function test Chest discomfort Dyspnea ( 01/30/21) HLD (hyperlipidemia) Atherosclerotic heart disease of [place] coronary artery without angina pectoris Essential (primary) hypertension Surgical History History of cataract surgery History of hip surgery S/P right rotator cuff repair History of bladder suspension procedure History of thyroidectomy History of hysterectomy History of tubal ligation History of appendectomy History of hernia repair History of repair of hiatal hernia Family History Mother CVA (cerebral vascular accident) Brother CAD (coronary artery disease) Sister CAD (coronary artery disease) Myocardial infarction Son CAD (coronary artery disease) Social History household members: significant other Smoking Status: Never smoker alcohol intake: never substance use type: does not use caffeine: No what type of physical activity do you participate in: other details: [employer] HPI LEFT HAND Details: This documentation accurately reflects the service provided and the decisions made by me, Dr. Mark London, DO 06/28/24803. Part of today???s visit was documented by Lona Mg [employer], acting as scribe. MARIA ESTHER FINNEY is a 84 year (more content not included)... Normal [facility] Absolute lymphocyte countOrd ered By: Mely Epperson on 06-14-2024 Lymphocytes Auto (Unsp spec) [#/Vol] 2.41 10*3/uL 0.83-4.51 [facility] Absolute neutrophil countOrd ered By: Mely Epperson on 06-14-2024 Neutrophils (Bld) [#/Vol] 3.6 10*3/uL 2.0-7.7 [facility] Albumin to globulin ratioOrd ered By: Mely Epperson on 06-14-2024 Albumin/Globulin [Mass ratio] 1.1 {ratio} 0.9-2.4 [facility] Automated lymphocyte count a s percentage of total leukocytesOrdered By: Mely Epperson on 06-14-2024 Lymphocytes/100 WBC Auto (Unsp spec) 35.5 % 19-41 [facility] Basophil percentageOrdered B y: Mely Epperson on 06-14-2024 Basophils/100 WBC (Bld) 0.6 % 0-1 [facility] Bilirubin Test strip Ql (U)O rdered By: Mely Geo on 06-14-2024 Bilirubin Ql (U) Negative Negative [facility] Bilirubin, totalOrdered By: Mely Geo on 06-14-2024 Bilirubin [Mass/Vol] 0.70 mg/dL 0.20-1.00 [facility] Comment on above: For patients on eltr ombopag therapy, use of Dimension Lyman TBIL is not recommended. Blood urea nitrogen (BUN)/cr eatinine ratioOrdered By: Mely Epperson on 06-14-2024 Urea nitrogen/Creatinine [Mass ratio] 13.4 mg/mg 10-20 [facility] CBC W/Diff, Automatedon 06-03 Absolute Lymph 2.41 X10 3/uL Normal 0.83-4.51 [facility] Comment on above: Order Comment: DR. Alvino MADRIGAL ORDERED CBCD AND CMP RALENE ORDERED FERRITIN Performed By: #### L 500.4050, L100.0100, [id number] #### [facility] [address] [place], [address] Absolute Neut 3.6 X10 3/uL Normal 2.0-7.7 [facility] Comment on above: Order Comment: DR. Alvino MADRIGAL ORDERED CBCD AND CMP ARLENE ORDERED FERRITIN Performed By: #### L 500.4050, L100.0100, [id number] #### [facility] [address] [place], [address] Basophils/100 WBC (Bld) 0.6 % Normal 0-1 [facility] Comment on above: Order Comment: DR. Alvino MADRIGAL ORDERED CBCD AND CMP ARLENE ORDERED FERRITIN Performed By: #### L 500.4050, L100.0100, [id number] #### [facility] [address] [place], [address] Eosinophils/100 WBC (Bld) 1.9 % Normal 0-5 [facility] Comment on above: Order Comment: DR. Alvino MADRIGAL ORDERED CBCD AND CMP ARLENE ORDERED FERRITIN Performed By: #### L 500.4050, L100.0100, [id number] #### [facility] [address] [place], [address] Erythrocyte distribution width (RBC) [Ratio] 13.2 % Normal 11.6-14.6 [facility] Comment on above: Order Comment: DR. Alvino MADRIGAL ORDERED CBCD AND CMP ARLENE ORDERED FERRITIN Performed By: #### L 500.4050, L100.0100, [id number] #### [facility] [address] [place], [address] Hematocrit (Bld) [Volume fraction] 39.0 % Normal 37-47 [facility] Comment on above: Order Comment: DR. Alvino MADRIGAL ORDERED CBCD AND CMP ARLENE ORDERED FERRITIN Performed By: #### L 500.4050, L100.0100, [id number] #### [facility] [address] [place], [address] Hemoglobin (Bld) [Mass/Vol] 12.6 g/dL Normal 12.0-15.0 [facility] Comment on above: Order Comment: DR. Alvino MADRIGAL ORDERED CBCD AND CMP ARLENE ORDERED FERRITIN Performed By: #### L 500.4050, L100.0100, [id number] #### [facility] [address] [place], [address] IG% 0.300 Normal 0.0-0.9 [facility] Comment on above: Order Comment: DR. Alvino MADRIGAL ORDERED CBCD AND CMP ARLENE ORDERED FERRITIN Result Comment: IG% - Immature Granulocytes (promyelocytes, myelocytes and metamyelocytes) > 1% indicates that a LEFT SHIFT is Present. Performed By: #### L 500.4050, L100.0100, [id number] #### [facility] [address] [place], [address] Lymphocytes/100 WBC (Bld) 35.5 % Normal 19-41 [facility] Comment on above: Order Comment: DR. Alvino MADRIGAL ORDERED CBCD AND CMP ARLENE ORDERED FERRITIN Performed By: #### L 500.4050, L100.0100, [id number] #### [facility] [address] [place], [address] MCH (RBC) [Entitic mass] 30.8 pg Normal 27.0-32.0 [facility] Comment on above: Order Comment: DR. Alvino MADRIGAL ORDERED CBCD AND CMP ARLENE ORDERED FERRITIN Performed By: #### L 500.4050, L100.0100, [id number] #### [facility] [address] [place], [address] MCHC (RBC) [Mass/Vol] 32.3 g/dL Normal 32-36 [facility] Comment on above: Order Comment: DR. Alvino MADRIGAL ORDERED CBCD AND CMP ARLENE ORDERED FERRITIN Performed By: #### L 500.4050, L100.0100, [id number] #### [facility] [address] [place], [address] MCV (RBC) [Entitic vol] 95.4 fL Normal 81-99 [facility] Comment on above: Order Comment: DR. Alvino MADRIGAL ORDERED CBCD AND CMP ARLENE ORDERED FERRITIN Performed By: #### L 500.4050, L100.0100, [id number] #### [facility] [address] [place], [address] Monocytes/100 WBC (Bld) 8.1 % Normal 0-10 [facility] Comment on above: Order Comment: DR. Alvino MADRIGAL ORDERED CBCD AND CMP ARLENE ORDERED FERRITIN Performed By: #### L 500.4050, L100.0100, [id number] #### [facility] [address] [place], [address] Neutrophils/100 WBC (Bld) 53.6 % Normal 47-70 [facility] Comment on above: Order Comment: DR. Alvino MADRIGAL ORDERED CBCD AND CMP ARLENE ORDERED FERRITIN Performed By: #### L 500.4050, L100.0100, [id number] #### [facility] [address] [place], [address] Nucleated RBC (Bld) [#/Vol] 0 10*3/uL Normal 0-5 [facility] Comment on above: Order Comment: DR. Alvino MADRIGAL ORDERED CBCD AND CMP ARLENE ORDERED FERRITIN Performed By: #### L 500.4050, L100.0100, [id number] #### [facility] [address] [place], [address] Platelet mean volume (Bld) [Entitic vol] 10.9 fL Normal 6.2-12.0 [facility] Comment on above: Order Comment: DR. Alvino MADRIGAL ORDERED CBCD AND CMP ARLENE ORDERED FERRITIN Performed By: #### L 500.4050, L100.0100, [id number] #### [facility] [address] [place], [address] Platelets (Bld) [#/Vol] 179 10*3/uL Normal 150-450 [facility] Comment on above: Order Comment: DR. Alvino MADRIGAL ORDERED CBCD AND CMP ARLENE ORDERED FERRITIN Performed By: #### L 500.4050, L100.0100, [id number] #### [facility] [address] [place], [address] RBC (Bld) [#/Vol] 4.09 10*6/uL Low 4.2-5.4 [facility] Comment on above: Order Comment: DR. Alvino MADRIGAL ORDERED CBCD AND CMP ARLENE ORDERED FERRITIN Performed By: #### L 500.4050, L100.0100, [id number] #### [facility] [address] [place], [address] RDW SD 46.5 fl High 35.1-43.9 [facility] Comment on above: Order Comment: DR. Alvino MADRIGAL ORDERED CBCD AND CMP ARLENE ORDERED FERRITIN Performed By: #### L 500.4050, L100.0100, [id number] #### [facility] [address] [place], [address] WBC (Bld) [#/Vol] 6.8 10*3/uL Normal 4.4-11.0 [facility] Comment on above: Order Comment: DR. Alvino MADRIGAL ORDERED CBCD AND CMP ARLENE ORDERED FERRITIN Performed By: #### L 500.4050, L100.0100, [id number] #### [facility] [address] [place], [address] Carbon dioxide measurementOr dered By: Mely Epperson on 06-14-2024 CO2 [Moles/Vol] 29.0 mmol/L 21.0-32.0 [facility] Chloride measurementOrdered By: Mely Epperson on 06-14-2024 Chloride [Moles/Vol] 103 mmol/L 98-107 [facility] Comprehensive Metabolic Prof ilon 06-14-2024 Albumin [Mass/Vol] 3.6 g/dL Normal 3.2-5.0 [facility] Comment on above: Order Comment: DR. Alvino MADRIGAL ORDERED CBCD AND CMP ARLENE ORDERED FERRITIN Performed By: #### L 500.4050, L100.0100, [id number] #### [facility] [address] [place], [address] Albumin/Globulin [Mass ratio] 1.1 {ratio} Normal 0.9-2.4 [facility] Comment on above: Order Comment: DR. Alvino AMDRIGAL ORDERED CBCD AND CMP ARLENE ORDERED FERRITIN Performed By: #### L 500.4050, L100.0100, [id number] #### [facility] [address] [place], [address] ALK P 57 U/L Normal 45-117 [facility] Comment on above: Order Comment: DR. Alvino MADRIGAL ORDERED CBCD AND CMP ARLENE ORDERED FERRITIN Performed By: #### L 500.4050, L100.0100, [id number] #### [facility] [address] [place], [address] ALT [Catalytic activity/Vol] 18 U/L Normal 13-56 [facility] Comment on above: Order Comment: DR. Alvino MADRIGAL ORDERED CBCD AND CMP ARLENE ORDERED FERRITIN Performed By: #### L 500.4050, L100.0100, [id number] #### [facility] [address] [place], [address] AST [Catalytic activity/Vol] 18 U/L Normal 15-37 [facility] Comment on above: Order Comment: DR. Alvino MADRIGAL ORDERED CBCD AND CMP ARLENE ORDERED FERRITIN Performed By: #### L 500.4050, L100.0100, [id number] #### [facility] [address] [place], [address] Bilirubin [Mass/Vol] 0.70 mg/dL Normal 0.20-1.00 [facility] Comment on above: Order Comment: DR. Alvino MADRIGAL ORDERED CBCD AND CMP ARLENE ORDERED FERRITIN Result Comment: For patients on eltrombopag therapy, use of Dimension Lyman TBIL is not recommended. Performed By: #### L 500.4050, L100.0100, [id number] #### [facility] [address] [place], [address] BUN/CRE 13.4 RATIO Normal 10-20 [facility] Comment on above: Order Comment: DR. Alvino MADRIGAL ORDERED CBCD AND CMP ARLENE ORDERED FERRITIN Performed By: #### L 500.4050, L100.0100, [id number] #### [facility] [address] [place], [address] CA,Total 8.8 mg/dL Normal 8.5-10.1 [facility] Comment on above: Order Comment: DR. Alvino MADRIGAL ORDERED CBCD AND CMP ARLENE ORDERED FERRITIN Performed By: #### L 500.4050, L100.0100, [id number] #### [facility] [address] [place], [address] Chloride [Moles/Vol] 103 mmol/L Normal 98-107 [facility] Comment on above: Order Comment: DR. Alvino MADRIGAL ORDERED CBCD AND CMP ARLENE ORDERED FERRITIN Performed By: #### L 500.4050, L100.0100, [id number] #### [facility] [address] [place], [address] CO2 [Moles/Vol] 29.0 mmol/L Normal 21.0-32.0 [facility] Comment on above: Order Comment: DR. Alvino MADRIGAL ORDERED CBCD AND CMP ARLENE ORDERED FERRITIN Performed By: #### L 500.4050, L100.0100, [id number] #### [facility] [address] [place], [address] Creatinine [Mass/Vol] 0.60 mg/dL Normal 0.55-1.02 [facility] Comment on above: Order Comment: DR. Alvino MADRIGAL ORDERED CBCD AND CMP ARLENE ORDERED FERRITIN Result Comment: The validity of the calculated GFR GFRAA in patients over 70 years has not been determined. Clinical correlation is essential. Performed By: #### L 500.4050, L100.0100, L503.6550 #### [facility] [address] [place], [address] EST GFR - AA 123 mL/min Normal >60 [facility] Comment on above: Order Comment: DR. Alvino MADRIGAL ORDERED CBCD AND CMP ARLENE ORDERED FERRITIN Result Comment: Afri can [place] GFR Calc Performed By: #### L 500.4050, L100.0100, [id number] #### [facility] [address] [place], [address] GAP 4 Low 5-15 [facility] Comment on above: Order Comment: DR. Alvino MADRIGAL ORDERED CBCD AND CMP ARLENE ORDERED FERRITIN Performed By: #### L 500.4050, L100.0100, L503.6550 #### [facility] [address] [place], [address] GFR/1.73 sq M.predicted among non-blacks MDRD (S/P/Bld) [Vol rate/Area] 102 mL/min/{1.73_m2} Normal >60 [facility] Comment on above: Order Comment: DR. Alvino MADRIGAL ORDERED CBCD AND CMP ARLENE ORDERED FERRITIN Result Comment: Non- GFR Calc Performed By: #### L 500.4050, L100.0100, L503.6550 #### [facility] [address] [place], [address] Globulin (S) [Mass/Vol] 3.2 g/dL Normal 2.2-4.2 [facility] Comment on above: Order Comment: DR. Alvino MADRIGAL ORDERED CBCD AND CMP ARLENE ORDERED FERRITIN Performed By: #### L 500.4050, L100.0100, L503.6550 #### [facility] [address] [place], [address] Glucose [Mass/Vol] 105 mg/dL Normal 74-106 [facility] Comment on above: Order Comment: DR. Alvino MADRIGAL ORDERED CBCD AND CMP ARLENE ORDERED FERRITIN Result Comment: Fast ing Glucose result from 100 to 125 mg/dL suggests IMPAIRED HOMEOSTASIS per A.D.A. criteria. Performed By: #### L 500.4050, L100.0100, L503.6550 #### [facility] [address] [place], [address] Potassium [Moles/Vol] 4.2 mmol/L Normal 3.5-5.1 [facility] Comment on above: Order Comment: DR. Alvino MADRIGAL ORDERED CBCD AND CMP ARLENE ORDERED FERRITIN Performed By: #### L 500.4050, L100.0100, L503.6550 #### [facility] [address] [place], [address] Sodium [Moles/Vol] 136 mmol/L Normal 136-145 [facility] Comment on above: Order Comment: DR. Alvino MADRIGAL ORDERED CBCD AND CMP ARLENE ORDERED FERRITIN Performed By: #### L 500.4050, L100.0100, L503.6550 #### [facility] [address] [place], [address] T PROT 6.8 g/dL Normal 6.4-8.2 [facility] Comment on above: Order Comment: DR. Alvino MADRIGAL ORDERED CBCD AND CMP ARLENE ORDERED FERRITIN Performed By: #### L 500.4050, L100.0100, L503.6550 #### [facility] [address] [place], [address] Urea nitrogen [Mass/Vol] 8 mg/dL Normal 7-18 [facility] Comment on above: Order Comment: DR. Alvino MADRIGAL ORDERED CBCD AND CMP ARLENE ORDERED FERRITIN Performed By: #### L 500.4050, L100.0100, L503.6550 #### [facility] [address] [place], [address] Eosinophil percentageOrdered By: Mely Epperson on 06-14-2024 Eosinophils/100 WBC (Bld) 1.9 % 0-5 [facility] Erythrocyte distribution wid th ratioOrdered By: Mely Epperson on 06-14-2024 Erythrocyte distribution width (RBC) [Ratio] 13.2 % 11.6-14.6 [facility] Erythrocyte distribution wid th standard deviationOrdered By: Mely Epperson on 06-14-2024 Erythrocyte distribution width (RBC) [Ratio] 46.5 fl High 35.1-43.9 [facility] Ferritinon 06-14-2024 Ferritin [Mass/Vol] 112 ng/mL Normal - [facility] Comment on above: Order Comment: DR. Alvino MADRIGAL ORDERED CBCD AND CMP ARLENE ORDERED FERRITIN Performed By: #### L 500.4050, L100.0100, L503.6550 #### [facility] [address] [place], [address] Ferritin measurementOrdered By: Mely Epperson on 06-14-2024 Ferritin [Mass/Vol] 112 ng/mL [facility] Glomerular filtration rate ( GFR) estimationOrdered By: Mely Epperson on 06-14-2024 GFR/1.73 sq M.predicted among non-blacks MDRD (S/P/Bld) [Vol rate/Area] 102 mL/min/{1.73_m2} >60 [facility] Comment on above: Non- GFR Calc Glucose measurementOrdered B y: Mely Epperson on 06-14-2024 Glucose [Mass/Vol] 105 mg/dL 74-106 [facility] Comment on above: Fasting Glucose resu lt from 100 to 125 mg/dL suggests IMPAIRED HOMEOSTASIS per A.D.A. criteria. Hematocrit Auto (Bld) [Volum e fraction]Ordered By: Mely Epperson on 06-14-2024 Hematocrit (Bld) [Volume fraction] 39.0 % 37-47 [facility] Hemoglobin measurementOrdere d By: Mely Epperson on 06-14-2024 Hemoglobin (Bld) [Mass/Vol] 12.6 g/dL 12.0-15.0 [facility] Immature granulocytes/100 WB C Auto (Bld)Ordered By: Mely Epperson on 06-14-2024 Immature granulocytes/100 WBC (Bld) 0.300 % 0.0-0.9 [facility] Comment on above: IG% - Immature Granu locytes (promyelocytes, myelocytes and metamyelocytes) > 1% indicates that a LEFT SHIFT is Present. Internal Medicine Office Vis bharath 06-14-2024 Internal Medicine Office Visit [facility] [address] [place] [address] OFFICE VISIT Date of Service: 06/14/24 MR#: [id number] Acct: [id number] Name: MARIA ESTHER FINNEY Rep #: [id number] : 1940 Provider: Dr. 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 Accompanied by: Daughter Is patient in pain?: No Allergies No Known Allergies Allergy (Verified 06/14/24 13:28) Medications ???Medication ???Instructions ???Recorded ???Confirmed ???Type ascorbic acid (vitamin C) 500 mg 500 mg PO QDAY supplement 09/14/17 06/14/24 History tablet multivitamin 1 tab PO DAILY supplement 06/29/18 06/14/24 History inhalational spacing device #1 ea 11/07/20 06/14/24 Rx acetaminophen 500 mg tablet 1,000 mg (2 x 500 mg) PO Q8 #0 tab s 11/18/21 06/14/24 Rx sennosides 8.6 mg-docusate sodium 2 tab PO BID #0 tabs 11/18/2104/26 Rx 50 mg tablet (Stool Softener-Stimulant Laxative) lysine 500 mg tablet 500 mg PO DAILY 02/12/22 06/14/24 History nebulizer #1 ea 02/12/22 06/14/24 Rx ipratropium 0.5 mg-albuterol 3 mg 3 ml inhalation Q4H PRN shortness 07/31/22 06/14/24 Rx (2.5 mg base)/3 mL nebulization of breath or wheezing #180 mL soln albuterol sulfate 1.25 mg/3 mL 1.25 mg (3 mL) inhalation Q4H #90 09/01/22 06/14/24 Rx solution for nebulization mL ferrous sulfate 325 mg (65 mg 325 mg PO DAILY 02/17/23 06/14/24 History iron) tablet levothyroxine 137 mcg tablet 137 mcg PO DAILY #90 TABLETS 01/2406/14/24 Rx (Synthroid) metoprolol tartrate 50 mg tablet 50 mg PO QHS heart/BP #90 tabs 06/14/24 Rx pregabalin 25 mg capsule 150 mg PO BID 01/31/24 06/14/24 Hi story sulfacetamide sodium 10 % eye drops 1 drp ophthalmic (eye) Q4H #15 mL 02/09/24 06/14/24 Rx tolterodine 2 mg capsule,extended 2 mg PO DAILY #90 caps 02/09/24 0 06/14/24 Rx release 24 hr mupirocin 2 % topical ointment 1 applic topical BID #15 grams 06/14/24 Rx albuterol sulfate 90 mcg/actuation See Rx Instructions .Route 04/1706/14/24 Rx aerosol inhaler .COMPLEX #36 grams apixaban 2.5 mg tablet 2.5 mg PO BID #180 tabs 04/24/24 0 06/14/24 Rx atorvastatin 20 mg tablet See Rx Instructions .Route 4 06/14/24 Rx .COMPLEX #90 tabs metoprolol tartrate 25 mg tablet 25 mg PO .AM #90 tabs 05/01/2404/26 Rx omeprazole 40 mg capsule,delayed 40 mg PO DAILY #90 caps 05/01/24 0 06/14/24 Rx release losartan 50 mg tablet 50 mg PO DAILY #90 tabs 06/14/24 0 06/14/24 Rx Have you fallen in the past year?: No [facility] [facility] Medical History Acute bronchitis UTI (urinary tract infection) A-fib PAF (paroxysmal atrial fibrillation) Valvular heart disease Peripheral neuropathy Neuropathy Hyponatremia Hypothyroidism Nonrheumatic aortic (valve) insufficiency Nonrheumatic mitral (valve) insufficiency Non-rheumatic tricuspid valve insufficiency Pure hypercholesterolemia Hernia Abnormal electrocardiogram Mitral insufficiency, acute Abnormal pulmonary function test Chest discomfort Dyspnea ( 01/30/21) HLD (hyperlipidemia) Atherosclerotic heart disease of [place] coronary artery without angina pectoris Essential (primary) hypertension Surgical History History of cataract surgery History of hip surgery S/P right rotator cuff repair History of bladder suspension procedure History of thyroidectomy History of hysterectomy History of tubal ligation History of appendectomy History of hernia repair History of repair of hiatal hernia Family History Mother CVA (cerebral vascular accident) Brother CAD (coronary artery disease) Sister CAD (coronary artery disease) Myocardial infarction Son CAD (coronary artery disease) Social History household members: significant other Smoking Status: Never smoker alcohol intake: never substance use type: does not use caffeine: No what type of physical activity do you participate in: other details: [facility] HPI Chief Complaint: follow up Details: MARIA ESTHER FINNEY, is a 84 F who presents to the office today for concerns about recurrent urinary tract infections. Concerns that her midd (more content not included)... Normal [facility] Ketones Test strip Ql (U)Ord ered By: Mely Epperson on 06-14-2024 Ketones Ql (U) Negative Negative [facility] Laboratory - Chemistry and C hemistry - challengeOrdered By: Mely Epperson on 06-14-2024 AST [Catalytic activity/Vol] 18 U/L 15-37 [facility] MCV (mean corpuscular volume ) determinationOrdered By: Mely Epperson on 06-14-2024 MCV (RBC) [Entitic vol] 95.4 fL 81-99 [facility] Mean corpuscular hemoglobin (MCH) determinationOrdered By: Mely Epperson on 06-14-2024 MCH (RBC) [Entitic mass] 30.8 pg 27.0-32.0 [facility] Mean corpuscular hemoglobin concentration (MCHC) determinationOrdered By: Mely Epperson on 06-14-2024 MCHC (RBC) [Mass/Vol] 32.3 g/dL 32-36 [facility] Mean platelet volume determi nationOrdered By: Mely Epperson on 06-14-2024 Platelet mean volume (Bld) [Entitic vol] 10.9 fL 6.2-12.0 [facility] Microscopic analysis of urin e for red blood cells (RBC)Ordered By: Mely Epperson on 06-14-2024 Microscopic analysis of urine for red blood cells (RBC) Not Reportable [facility] Monocyte percentageOrdered B y: Mely Epperson on 06-14-2024 Monocytes/100 WBC (Bld) 8.1 % 0-10 [facility] Mucus LM Ql (Urine sed)Order ed By: Mely Epperson on 06-14-2024 Mucus Ql (Urine sed) 0 SEEN /hpf [facility] Neutrophil percentageOrdered By: Mely Epperson on 06-14-2024 Neutrophils/100 WBC (Bld) 53.6 % 47-70 [facility] Nitrite Test strip Ql (U)Ord ered By: Mely Epperson on 06-14-2024 Nitrite Ql (U) Negative Negative [facility] Nucleated red blood cell per centageOrdered By: Mely Epperson on 06-14-2024 Nucleated RBC/100 WBC (Bld) [Ratio] 0 % 0-5 [facility] Platelet countOrdered By: Do akbar Epperson on 06-14-2024 Platelets (Bld) [#/Vol] 179 10*3/uL 150-450 [facility] Potassium measurementOrdered By: Mely Epperson on 06-14-2024 Potassium [Moles/Vol] 4.2 mmol/L 3.5-5.1 [facility] Protein Test strip Ql (U)Ord ered By: Mely Epperson on 06-14-2024 Protein Ql (U) 15 mg/dl High Negative [facility] RBC Auto (Bld) [#/Vol]Ordere d By: Mely Epperson on 06-14-2024 RBC (Bld) [#/Vol] 4.09 10*6/uL Low 4.2-5.4 [facility] Serum anion gap measurementO rdered By: Mely Epperson on 06-14-2024 Anion gap [Moles/Vol] 4 mmol/L Low 5-15 [facility] Serum globulin measurementOr dered By: Mely Epperson on 06-14-2024 Globulin (S) [Mass/Vol] 3.2 g/dL 2.2-4.2 [facility] Serum or plasma alanine murry otransferase (ALT) measurementOrdered By: Mely Epperson on 06-14-2024 ALT [Catalytic activity/Vol] 18 U/L 13-56 [facility] Serum or plasma albumin amandeep urement (mass/volume)Ordered By: Mely Epperson on 06-14-2024 Albumin [Mass/Vol] 3.6 g/dL 3.2-5.0 [facility] Serum or plasma alkaline callum sphatase measurementOrdered By: Mely Epperson on 06-14-2024 ALP [Catalytic activity/Vol] 57 U/L 45-117 [facility] Serum or plasma calcium amandeep urement (mass/volume)Ordered By: Mely Epperson on 06-14-2024 Calcium [Mass/Vol] 8.8 mg/dL 8.5-10.1 [facility] Serum or plasma creatinine m easurement (mass/volume)Ordered By: Mely Epperson on 06-14-2024 Creatinine [Mass/Vol] 0.60 mg/dL 0.55-1.02 [facility] Comment on above: The validity of the calculated GFR & GFRAA in patients over 70 years has not been determined. Clinical correlation is essential. Serum or plasma urea nitroge n measurement (mass/volume)Ordered By: Mely Epperson on 06-14-2024 Urea nitrogen [Mass/Vol] 8 mg/dL 7-18 [facility] Sodium levelOrdered By: Johnathan Epperson on 06-14-2024 Sodium [Moles/Vol] 136 mmol/L 136-145 [facility] Squamous epithelial cells de tection in urine sediment by light microscopyOrdered By: Mely Epperson on 06-14-2024 Epithelial cells.squamous LM Ql (Urine sed) 0-5 SEEN /hpf 5-10 [facility] Total proteinOrdered By: Ra Epperson on 06-14-2024 Protein [Mass/Vol] 6.8 g/dL 6.4-8.2 [facility] Urinalysis, Completeon 06-14 EPI,SQUAMOUS 0-5 SEEN Normal 5-10 [facility] Comment on above: Order Comment: LOUIE CTOR TO SPECIFY Performed By: #### L 400.0001 #### [facility] [address] [place], [address] WBC 0-5 SEEN Normal 0-5 [facility] Comment on above: Order Comment: LOUIE CTOR TO SPECIFY Performed By: #### L 400.0001 #### [facility] [address] [place], [address] BACTERIA 0 SEEN Normal None Seen [facility] Comment on above: Order Comment: LOUIE CTOR TO SPECIFY Performed By: #### L [id number] #### [facility] [address] [place], [address] Mucus Ql (Urine sed) 0 SEEN Normal [facility] Comment on above: Order Comment: LOUIE CTOR TO SPECIFY Performed By: #### L [id number] #### [facility] [address] [place], [address] Urine clarityOrdered By: Ra glas Brown on 06-14-2024 Clarity (U) Clear Clear [facility] Urine color determinationOrd ered By: Mely Brown on 06-14-2024 Color (U) Yellow Yellow [facility] Urine glucose detectionOrder ed By: Mely Brown on 06-14-2024 Glucose Ql (U) Normal mg/dl Normal [facility] Urine leukocyte esterase det ection by dipstickOrdered By: Mely Brown on 06-14-2024 Leukocyte esterase Test strip Ql (U) 500 /ul High Negative [facility] Urine pHOrdered By: Mely Brown on 06-14-2024 pH (U) 6.0 [pH] 5.0 - 8.0 [facility] Urine sediment bacteria coun t by microscopy (number/high power field)Ordered By: Mely Epperson on 06-14-2024 Bacteria LM.HPF (Urine sed) [#/Area] 0 /[HPF] None Seen [facility] Urine specific gravity measu rementOrdered By: Mely Epperson on 06-14-2024 Specific gravity (U) [Rel density] 1.010 1.002-1.03 0 [facility] Urine urobilinogen measureme ntOrdered By: Mely Epperson on 06-14-2024 Urobilinogen Ql (U) Normal mg/dl Normal [facility] White blood cell (WBC) count Ordered By: Mely Epperson on 06-14-2024 WBC (Bld) [#/Vol] 6.8 10*3/uL 4.4-11.0 [facility] White blood cell countOrdere d By: Mely Epperson on 06-14-2024 White blood cell count 0-5 SEEN /hpf 0-5 [facility] Urine Cultureon 05-11-2024 [facility] Mixed Gram Positive Organisms [place] Count 80,000-100,000 [facility] Mixed contaminants. Submit a new specimen if indicated. Normal [facility] Comment on above: Performed By: #### M 100.2200 #### [facility] [address] [place], [place], [address] Urgent Care Visit Reporton 0 05-06-2024 Urgent Care Visit Report [facility] [address], [address] [place], [place] [address] OFFICE VISIT Date of Service: 05/06/24 MR#: [id number] Acct: [id number] Name: MARIA ESTHER FINNEY Rep #: [id number] : 1940 Provider: ABDULAZIZ Campbell Age/Sex: 84/F Location: [facility] [place] Status: Signed Intake Vital Signs 03/26/24 12:57 05/06/24 09:42 Height 5 ft 3 in Weight: 154 lb 4 oz BMI 27.3 BP 122/82 H 110/80 Blood Pressure Location Lt brachial Position Sitting Sitting Respiration 12 Pulse 69 64 Pulse Source NIBP Temp 97.9 F 97.7 F L Temp Source Oral Oral Pulse Oximetry (%) 94 97 Oxygen Delivery Method room air room air Intake Visit Reasons: FEVER/WEAKNESS Chief Complaint: fever/weakness Remedial Reading Teacher Required: No Is patient in pain?: No Allergies No Known Allergies Allergy (Verified 05/06/24 10:03) Medications ???Medication ???Instructions ???Recorded ???Confirmed ???Type ascorbic acid (vitamin C) 500 mg 500 mg PO QDAY supplement 09/14/17 03/26/24 History tablet multivitamin 1 tab PO DAILY supplement 06/29/18 03/26/24 History inhalational spacing device #1 ea 11/07/20 03/26/24 Rx acetaminophen 500 mg tablet 1,000 mg (2 x 500 mg) PO Q8 #0 tabs 11/18/21 03/26/24 Rx sennosides 8.6 mg-docusate sodium 2 tab PO BID #0 tabs 11/18/21 03/26/24 Rx 50 mg tablet (Stool Softener-Stimulant Laxative) lysine 500 mg tablet 500 mg PO DAILY 02/12/22 03/26/24 History nebulizer #1 ea 02/12/22 03/26/24 Rx ipratropium 0.5 mg-albuterol 3 mg 3 ml inhalation Q4H PRN shortness 07/31/22 03/26/24 Rx (2.5 mg base)/3 mL nebulization of breath or wheezing #180 mL soln albuterol sulfate 1.25 mg/3 mL 1.25 mg (3 mL) inhalation Q4H #90 09/01/22 03/26/24 Rx solution for nebulization mL ferrous sulfate 325 mg (65 mg 325 mg PO DAILY 02/17/23 03/26/24 History iron) tablet levothyroxine 137 mcg tablet 137 mcg PO DAILY #90 TABLETS 01/25/24 03/26/24 Rx (Synthroid) metoprolol tartrate 50 mg tablet 50 mg PO QHS heart/BP #90 tabs 01/31/24 03/26/24 Rx pregabalin 25 mg capsule 150 mg PO BID 01/31/24 03/26/24 History losartan 100 mg tablet 50 mg (1/2 x 100 mg) PO DAILY #90 02/09/24 03/26/24 Rx tabs sulfacetamide sodium 10 % eye drops 1 drp ophthalmic (eye) Q4H #15 mL 02/09/24 03/26/24 Rx tolterodine 2 mg capsule,extended 2 mg PO DAILY #90 caps 02/09/24 03/26/24 Rx release 24 hr mupirocin 2 % topical ointment 1 applic topical BID #15 grams 03/26/24 03/26/24 Rx albuterol sulfate 90 mcg/actuation See Rx Instructions .Route 04/17/24 Rx aerosol inhaler .COMPLEX #36 grams apixaban 2.5 mg tablet 2.5 mg PO BID #180 tabs 04/24/24 Rx atorvastatin 20 mg tablet See Rx Instructions .Route 05/01/24 Rx .COMPLEX #90 tabs metoprolol tartrate 25 mg tablet 25 mg PO .AM #90 tabs 05/01/24 Rx omeprazole 40 mg capsule,delayed 40 mg PO DAILY #90 caps 05/01/24 Rx release nitrofurantoin 100 mg PO BID 5 days #10 caps 05/06/24 05/06/24 Rx monohydrate/macrocrystals 100 mg capsule (Macrobid) Have you fallen in the past year?: No PFSH Medical History Acute bronchitis UTI (urinary tract infection) A-fib PAF (paroxysmal atrial fibrillation) Valvular heart disease Peripheral neuropathy Neuropathy Hyponatremia Hypothyroidism Nonrheumatic aortic (valve) insufficiency Nonrheumatic mitral (valve) insufficiency Non-rheumatic tricuspid valve insufficiency Pure hypercholesterolemia Hernia Abnormal electrocardiogram Mitral insufficiency, acute Abnormal pulmonary function test Chest discomfort Dyspnea ( 01/30/21) HLD (hyperlipidemia) Atherosclerotic heart disease of [place] coronary artery without angina pectoris Essential (primary) hypertension Surgical History History of cataract surgery History of hip surgery S/P right rotator cuff repair History of bladder suspension procedure History of thyroidectomy History of hysterectomy History of tubal ligation History of appendectomy History of hernia repair History of repair of hiatal hernia Family History Mother CVA (cerebral vascular accident) Brother CAD (coronary artery disease) Sister CAD (coronary artery disease) Myocardial infarction Son CAD (coronary artery disease) Social History household members: significant other Smoking Status: Never smoker alcohol intake: never substance use type: does not use caffeine: No what type of physical activity do you participate in: other details: [facility] HPI Chief Complaint: fever/weakness Details: MARIA ESTHER FINNEY, is a 84 F who presents to the office today for fever (more content not included)... Normal [facility] T4 Free Directon 05-01-2024 T4 FREE DIRECT 1.25 ng/dL Normal 0.76-1.46 [facility] Comment on above: Performed By: #### M 100.2200 #### [facility] [address] [facility] [address] Thyroid Stim Hormone (TSH)on 05-01-2024 TSH 0.980 uIU/mL Normal 0.358-3.74 0 [facility] Comment on above: Performed By: #### M 100.2200 #### [facility] [address] [place], [place], [address] Urgent Care Visit Reporton 05-26-2023 Urgent Care Visit Report [facility] [address], [address] [place], [place] [address] OFFICE VISIT Date of Service: 03/26/24 MR#: [id number] Acct: [id number] Name: MARIA ESTHER FINNEY Rep #: [id number] : 1940 Provider: ABDULAZIZ fischer Age/Sex: 84/F Location: [facility] [place] Status: Signed Intake Vital Signs 02/09/24 13:24 03/26/24 12:57 Height 5 ft 3 in 5 ft 3 in Weight: 154 lb 4 oz BMI 27.3 BP 122/82 H Position Sitting Pulse 69 Temp 97.9 F Temp Source Oral Pulse Oximetry (%) 94 Oxygen Delivery Method room air Intake Visit Reasons: RASH AROUND MOUTH Accompanied by: Daughter Allergies No Known Allergies Allergy (Verified 03/26/24 13:04) Medications ???Medication ???Instructions ???Recorded ???Confirmed ???Type ascorbic acid (vitamin C) 500 mg 500 mg PO QDAY supplement 09/14/17 03/26/24 History tablet multivitamin 1 tab PO DAILY supplement 06/29/18 03/26/24 History inhalational spacing device #1 ea 11/07/20 03/26/24 Rx acetaminophen 500 mg tablet 1,000 mg (2 x 500 mg) PO Q8 #0 tabs 11/18/21 03/26/24 Rx sennosides 8.6 mg-docusate sodium 2 tab PO BID #0 tabs 11/18/21 03/26/24 Rx 50 mg tablet (Stool Softener-Stimulant Laxative) lysine 500 mg tablet 500 mg PO DAILY 02/12/22 03/26/24 History nebulizer #1 ea 02/12/22 03/26/24 Rx ipratropium 0.5 mg-albuterol 3 mg 3 ml inhalation Q4H PRN shortness 07/31/22 03/26/24 Rx (2.5 mg base)/3 mL nebulization of breath or wheezing #180 mL soln omeprazole 40 mg capsule,delayed 40 mg PO DAILY #90 caps 08/04/22 03/26/24 Rx release albuterol sulfate 1.25 mg/3 mL 1.25 mg (3 mL) inhalation Q4H #90 09/01/22 03/26/24 Rx solution for nebulization mL ferrous sulfate 325 mg (65 mg 325 mg PO DAILY 02/17/23 03/26/24 History iron) tablet atorvastatin 20 mg tablet See Rx Instructions .Route 03/23/23 03/26/24 Rx .COMPLEX #90 tabs albuterol sulfate 90 mcg/actuation See Rx Instructions .Route 05/18/23 03/26/24 Rx aerosol inhaler .COMPLEX #36 grams apixaban 2.5 mg tablet 2.5 mg PO BID #180 tabs 06/18/23 03/26/24 Rx levothyroxine 137 mcg tablet 137 mcg PO DAILY #90 TABLETS 01/25/24 03/26/24 Rx (Synthroid) metoprolol tartrate 25 mg tablet 25 mg PO .AM #90 tabs 01/31/24 03/26/24 Rx metoprolol tartrate 50 mg tablet 50 mg PO QHS heart/BP #90 tabs 01/31/24 03/26/24 Rx pregabalin 25 mg capsule 150 mg PO BID 01/31/24 03/26/24 History ciprofloxacin HCl 250 mg tablet 250 mg PO BID #10 tabs 02/09/24 03/26/24 Rx losartan 100 mg tablet 50 mg (1/2 x 100 mg) PO DAILY #90 02/09/24 03/26/24 Rx tabs sulfacetamide sodium 10 % eye drops 1 drp ophthalmic (eye) Q4H #15 mL 02/09/24 03/26/24 Rx tolterodine 2 mg capsule,extended 2 mg PO DAILY #90 caps 02/09/24 03/26/24 Rx release 24 hr mupirocin 2 % topical ointment 1 applic topical BID #15 grams 03/26/24 03/26/24 Rx Have you fallen in the past year?: No PFSH Medical History Acute bronchitis UTI (urinary tract infection) A-fib PAF (paroxysmal atrial fibrillation) Valvular heart disease Peripheral neuropathy Neuropathy Hyponatremia Hypothyroidism Nonrheumatic aortic (valve) insufficiency Nonrheumatic mitral (valve) insufficiency Non-rheumatic tricuspid valve insufficiency Pure hypercholesterolemia Hernia Abnormal electrocardiogram Mitral insufficiency, acute Abnormal pulmonary function test Chest discomfort Dyspnea ( 01/30/21) HLD (hyperlipidemia) Atherosclerotic heart disease of [place] coronary artery without angina pectoris Essential (primary) hypertension Surgical History History of cataract surgery History of hip surgery S/P right rotator cuff repair History of bladder suspension procedure History of thyroidectomy History of hysterectomy History of tubal ligation History of appendectomy History of hernia repair History of repair of hiatal hernia Family History Mother CVA (cerebral vascular accident) Brother CAD (coronary artery disease) Sister CAD (coronary artery disease) Myocardial infarction Son CAD (coronary artery disease) Social History household members: significant other Smoking Status: Never smoker alcohol intake: never substance use type: does not use caffeine: No what type of physical activity do you participate in: other details: [facility] HPI HPI Details: MARIA ESTHER FINNEY, is a 84 F who presents to the office today for Rash on the outside of her mouth on both sides. Patient states this has been going on for a month. Patient has used carmex and is now trying Blistex lip balm. Patient states it's not painful and doesn't itch. This kirkpatrick (more content not included)... Normal [facility] Urine Cultureon 11-21-2024 [facility] Streptococcus agalac tiae (B) [place] Count 11,000-25,000 Streptococcus agalactiae (B): REACTION Ampicillin Islt NAMITA <=0.25 cefTRIAXone Islt NAMITA <=0.12 S Clindamycin Islt NAMITA <=0.25 S Clindamycin.induced Susc Islt NEG Linezolid Islt NAMITA <=2 S Vancomycin Islt NAMITA 0.5 S Normal [facility] Comment on above: Performed By: #### M 100.2200 #### [facility] [address] [place], [address] Urine Cultureon 03-05-2024 [facility] Streptococcus sangui nis [place] Count 11,000-25,000 Streptococcus sanguinis: REACTION Ampicillin Islt NAMITA <=0.25 Penicillin G Islt NAMITA <=0.06 S Cefotaxime Islt NAMITA 0.25 S cefTRIAXone Islt NAMITA 0.25 S Vancomycin Islt NAMITA 0.5 S Normal [facility] Comment on above: Performed By: #### M 100.2200 #### [facility] [address] [place], [place], [address] Office Visit Reporton 2023 Office Visit Report [facility] [address] [place] [address]. [place] [address] OFFICE VISIT Date of Service: 03/01/24 MR#: [id number] Acct: [id number] Patient: MARIA ESTHER FINNEY Rep #: [id number] : 1940 Provider: WILLIAM NURSE Age/Sex: 84/F Location: [facility] [place] Status: Signed Intake Vital Signs 02/09/24 13:24 Height 5 ft 3 in Weight: 153 lb 8 oz BMI 27.1 BP 122/78 H Blood Pressure Location Lt brachial Position Sitting Respiration 16 Pulse 63 Pulse Source Monitor Temp 98.9 F Temp Source Temporal Pulse Oximetry (%) 95 Oxygen Delivery Method room air Intake Visit Reasons: urine sample Chief Complaint: 4m f/u Allergies No Known Allergies Allergy (Verified 02/09/24 13:16) Have you fallen in the past year?: Yes Nursing Note Patient in office to provide urine specimen; specimen obtained. Patient's daughter also reports that patient does not take tolterodine any longer and requests that it be removed from medication profile. Also, requests that preferred pharmacy be updated to [facility] rather than [facility] Assessment and Plan Assessment and Plan Orders: Orders Culture, Urine Today N39.0 - Urinary tract infection, site not specified Clinical Quality Measures Falls Risk Screening/Assistive Devices Have you fallen in the past year?: Yes 03/21/24 1229 Date Mely Pizarro Signature: Date (if applicable) CC: Normal [facility] Urine Cultureon 02-11-2024 [facility] Enterococcus faecali s [place] Count 11,000-25,000 Enterococcus faecalis: REACTION Ampicillin Islt NAMITA <=2 Ciprofloxacin Islt NAMITA 1 S Gentamicin Synergy Susc Islt SYN-S S levoFLOXacin Islt NAMITA 1 S Linezolid Islt NAMITA 2 S Nitrofurantoin Islt NAMITA <=16 S Streptomycin High Pot Susc Islt SYN-S S Tetracycline Islt NAMITA >=16 R Vancomycin Islt NAMITA 2 S Normal [facility] Comment on above: Performed By: #### M 100.2700 #### [facility] [address] [place], [place], [address] Internal Medicine Office Vis iton 02-09-2024 Internal Medicine Office Visit [facility] [address] [place], [place] [address] OFFICE VISIT Date of Service: 02/09/24 MR#: [id number] Acct: [id number] Name: MARIA ESTHER FINNEY Rep #: [id number] : 1940 Provider: Dr. Mely mejia, DO Age/Sex: 83/F Location: [facility] [place] Status: Signed Intake Vital Signs 10/13/23 13:26 01/31/24 12:57 02/09/24 13:24 Height 5 ft 3 in 5 ft 3 in 5 ft 3 in Weight: 154 lb 151 lb 153 lb 8 oz BMI 27.3 26.7 27.1 BP 130/72 H 169/90 H 122/78 H Blood Pressure Location Lt brachial Lt brachial Lt brachial Position Sitting Sitting Sitting Respiration 18 18 16 Pulse 76 65 63 Pulse Source Monitor Monitor Monitor Temp 98.1 F 98.9 F Temp Source Temporal Temporal Pulse Oximetry (%) 96 95 95 Oxygen Delivery Method room air room air room air Intake Visit Reasons: 4 M FU Chief Complaint: 4m f/u Remedial Reading Teacher Required: No Accompanied by: Daughter Is patient in pain?: Yes (left side ribs ) Pain scale (1-10): 2 Allergies No Known Allergies Allergy (Verified 02/09/24 13:16) Medications ???Medication ???Instructions ???Recorded ???Confirmed ???Type ascorbic acid (vitamin C) 500 mg 500 mg PO QDAY supplement 09/14/17 02/09/24 History tablet multivitamin 1 tab PO DAILY supplement 06/29/18 02/09/24 History inhalational spacing device #1 ea 11/07/20 02/09/24 Rx acetaminophen 500 mg tablet 1,000 mg (2 x 500 mg) PO Q8 #0 tabs 11/18/21 02/09/24 Rx sennosides 8.6 mg-docusate sodium 2 tab PO BID #0 tabs 11/18/21 02/09/24 Rx 50 mg tablet (Stool Softener-Stimulant Laxative) lysine 500 mg tablet 500 mg PO DAILY 02/12/22 02/09/24 History nebulizer #1 ea 02/12/22 02/09/24 Rx ipratropium 0.5 mg-albuterol 3 mg 3 ml inhalation Q4H PRN shortness 07/31/22 02/09/24 Rx (2.5 mg base)/3 mL nebulization of breath or wheezing #180 mL soln omeprazole 40 mg capsule,delayed 40 mg PO DAILY #90 caps 08/04/22 02/09/24 Rx release albuterol sulfate 1.25 mg/3 mL 1.25 mg (3 mL) inhalation Q4H #90 05/02/23 10/09/24 Rx solution for nebulization mL ferrous sulfate 325 mg (65 mg 325 mg PO DAILY 02/17/23 02/09/24 History iron) tablet atorvastatin 20 mg tablet See Rx Instructions .Route 03/23/23 02/09/24 Rx .COMPLEX #90 tabs albuterol sulfate 90 mcg/actuation See Rx Instructions .Route 05/18/23 02/09/24 Rx aerosol inhaler .COMPLEX #36 grams apixaban 2.5 mg tablet 2.5 mg PO BID #180 tabs 06/18/23 02/09/24 Rx levothyroxine 137 mcg tablet 137 mcg PO DAILY #90 TABLETS 01/25/24 02/09/24 Rx (Synthroid) metoprolol tartrate 25 mg tablet 25 mg PO .AM #90 tabs 01/31/24 02/09/24 Rx metoprolol tartrate 50 mg tablet 50 mg PO QHS heart/BP #90 tabs 01/31/24 02/09/24 Rx pregabalin 25 mg capsule 150 mg PO BID 01/31/24 02/09/24 History ciprofloxacin HCl 250 mg tablet 250 mg PO BID #10 tabs 02/09/24 02/09/24 Rx losartan 100 mg tablet 50 mg (1/2 x 100 mg) PO DAILY #90 02/09/24 02/09/24 Rx tabs sulfacetamide sodium 10 % eye drops 1 drp ophthalmic (eye) Q4H #15 mL 02/09/24 02/09/24 Rx tolterodine 2 mg capsule,extended 2 mg PO DAILY #90 caps 02/09/24 02/09/24 Rx release 24 hr Have you fallen in the past year?: No PFSH Medical History Acute bronchitis UTI (urinary tract infection) A-fib PAF (paroxysmal atrial fibrillation) Valvular heart disease Peripheral neuropathy Neuropathy Hyponatremia Hypothyroidism Nonrheumatic aortic (valve) insufficiency Nonrheumatic mitral (valve) insufficiency Non-rheumatic tricuspid valve insufficiency Pure hypercholesterolemia Hernia Abnormal electrocardiogram Mitral insufficiency, acute Abnormal pulmonary function test Chest discomfort Dyspnea ( 01/30/21) HLD (hyperlipidemia) Atherosclerotic heart disease of [place] coronary artery without angina pectoris Essential (primary) hypertension Surgical History History of cataract surgery History of hip surgery S/P right rotator cuff repair History of bladder suspension procedure History of thyroidectomy History of hysterectomy History of tubal ligation History of appendectomy History of hernia repair History of repair of hiatal hernia Family History Mother CVA (cerebral vascular accident) Brother CAD (coronary artery disease) Sister CAD (coronary artery disease) Myocardial infarction Son CAD (coronary artery disease) Social History household members: significant other Smoking Status: Never smoker alcohol intake: never substance use type: does not use caffeine: No what type of physical activity do you participate in: other details: [employer] HPI HPI Chief Complaint: 4m f/u De (more content not included)... Normal [facility] Cardiology Visit Reporton Cardiology Visit Report [facility] [address] [place] [address] OFFICE VISIT Date of Service: 01/31/24 MR#: [id number] Acct: [id number] Name: MARIA ESTHER FINNEY Rep #: [id number] : 1940 Provider: ABDULAZIZ fischer Age/Sex: 83/F Location: [facility] [place] Status: Signed HPI HPI History of Present Illness Details: MARIA ESTHER FINNEY, is a 83 year old white female who presents to the office today for follow-up of a history of mild coronary artery disease, valvular heart disease, atrial fibrillation, hyperlipidemia, and hypertension. She denies chest, arm, jaw, or neck discomfort. She denies palpitations. She states bilateral lower extremity edema. She denies claudication. She acknowledges shortness of breath with activity such as yardwork. She denies shortness of breath at rest, orthopnea, or PND. She denies chronic cough. She denies significant, sudden weight gain. She states lightheadedness and weakness. She denies dizziness, near-syncope, or syncope. She denies blood in urine, blood in stool, or epistaxis. He denies fever with chills. She denies myalgia. She states fatigue. Her exercise level has remained stable. Intake Vital Signs 06/07/23 13:28 10/13/23 13:26 01/31/24 12:57 Height 5 ft 3 in 5 ft 3 in 5 ft 3 in Weight: 151 lb BMI 26.7 BP 169/90 H Blood Pressure Location Lt brachial Position Sitting Respiration 18 Pulse 65 Pulse Source Monitor Pulse Oximetry (%) 95 Oxygen Delivery Method room air Intake Visit Reasons: 6 M Remedial Reading Teacher Required: No Accompanied by: Daughter Is patient in pain?: No Allergies No Known Allergies Allergy (Verified 01/31/24 12:59) Medications ???Medication ???Instructions ???Recorded ???Confirmed ???Type ascorbic acid (vitamin C) 500 mg 500 mg PO QDAY supplement 09/14/17 01/31/24 History tablet multivitamin 1 tab PO DAILY supplement 06/29/18 01/31/24 History inhalational spacing device #1 ea 11/07/20 06/17/23 Rx acetaminophen 500 mg tablet 1,000 mg (2 x 500 mg) PO Q8 #0 tabs 11/18/21 01/31/24 Rx sennosides 8.6 mg-docusate sodium 2 tab PO BID #0 tabs 11/18/21 01/31/24 Rx 50 mg tablet (Stool Softener-Stimulant Laxative) lysine 500 mg tablet 500 mg PO DAILY 02/12/22 01/31/24 History nebulizer #1 ea 02/12/22 06/17/23 Rx ipratropium 0.5 mg-albuterol 3 mg 3 ml inhalation Q4H PRN shortness 07/31/22 10/13/23 Rx (2.5 mg base)/3 mL nebulization of breath or wheezing #180 mL soln omeprazole 40 mg capsule,delayed 40 mg PO DAILY #90 caps 08/04/22 01/31/24 Rx release albuterol sulfate 1.25 mg/3 mL 1.25 mg (3 mL) inhalation Q4H #90 09/01/22 01/31/24 Rx solution for nebulization mL ferrous sulfate 325 mg (65 mg 325 mg PO DAILY 02/17/23 01/31/24 History iron) tablet atorvastatin 20 mg tablet See Rx Instructions .Route 03/23/23 01/31/24 Rx .COMPLEX #90 tabs albuterol sulfate 90 mcg/actuation See Rx Instructions .Route 05/18/23 01/31/24 Rx aerosol inhaler .COMPLEX #36 grams apixaban 2.5 mg tablet 2.5 mg PO BID #180 tabs 06/18/23 01/31/24 Rx levothyroxine 137 mcg tablet 137 mcg PO DAILY #90 TABLETS 01/25/24 01/31/24 Rx (Synthroid) tolterodine 2 mg capsule,extended 2 mg PO DAILY #30 caps 01/28/24 01/31/24 Rx release 24 hr losartan 100 mg tablet 50 mg PO DAILY 01/31/24 History metoprolol tartrate 25 mg tablet 25 mg PO .AM #90 tabs 01/31/24 01/31/24 Rx metoprolol tartrate 50 mg tablet 50 mg PO QHS heart/BP #90 tabs 01/31/24 01/31/24 Rx pregabalin 25 mg capsule 150 mg PO BID 01/31/24 01/31/24 History Have you fallen in the past year?: No PFSH Medical History Acute bronchitis UTI (urinary tract infection) A-fib PAF (paroxysmal atrial fibrillation) Valvular heart disease Peripheral neuropathy Neuropathy Hyponatremia Hypothyroidism Nonrheumatic aortic (valve) insufficiency Nonrheumatic mitral (valve) insufficiency Non-rheumatic tricuspid valve insufficiency Pure hypercholesterolemia Hernia Abnormal electrocardiogram Mitral insufficiency, acute Abnormal pulmonary function test Chest discomfort Dyspnea ( 01/30/21) HLD (hyperlipidemia) Atherosclerotic heart disease of [place] coronary artery without angina pectoris Essential (primary) hypertension Surgical History History of cataract surgery History of hip surgery S/P right rotator cuff repair History of bladder suspension procedure History of thyroidectomy History of hysterectomy History of tubal ligation History of appendectomy History of hernia repair History of repair of hiatal hernia Family History Mother CVA (cerebral vascular accident) Brother CAD (coronary artery disease) (more content not included)... Normal [facility] Brain W/WO Contraston 2023 Brain W/WO Contrast [facility] [address] [place] [address] [id number] Brain W/WO Contrast MR#: [id number] Acct: [id number] Name: MARIA ESTHER FINNEY Rep #: [id number] : 1940 F 83 From: [place] MD PCP: Dr. Mely Epperson, DO Status: REG CLI Study: Brain W/WO Contrast Date of Exam: 12/01/23 Exam# [id number] Ordering Dr: Arlene Huff [id number] STUDY: MRI BRAIN WITH AND WITHOUT CONTRAST REASON FOR EXAM: Female, 83 years old. MENINGIOMA F/U TECHNIQUE: Standardized multiplanar fat and water weighted pulse sequences were obtained. IV 14ml clariscan was administered for the contrast portion of the examination. COMPARISON: November 05, 2022 FINDINGS: Mild atrophy and moderate periventricular white matter disease most likely chronic small vessel ischemic changes without mass effect or restricted diffusion. 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 Normal thalami. There is no extra-axial fluid accumulation. Normal flow voids within the major intracranial circulation suggesting patency by spin echo criteria. Normal venous enhancement. There is no enhancing intra-axial or extra-axial abnormality. Normal sella turcica, pituitary gland, infundibular stalk, optic chiasm and hypothalamus. Normal tectal plate and pineal gland. Normal midbrain, and medulla. Normal cerebellum. Normal basal cisterns. Normal bilateral temporal bones. Normal bilateral internal auditory canals. Enhancing left retrocerebellar dural-based mass measuring 2.1 x 1.83 cm consistent with meningioma unchanged in size since previous exam Postsurgical changes of the orbits. Normal visualized paranasal sinuses. Normal calvarium and skull base. Normal visualized soft tissue structures. Normal visualized upper cervical spine. MRI/Brain W/WO Contrast IMPRESSION: Stable appearing left left retrocerebellar meningioma unchanged in size since previous study Moderate periventricular white matter ischemic changes without evidence for acute infarct Electronically Signed: [place] [facility] MD at 22:44 EDT , CC: Dr. Mely Epperson, DO; [employer]: Signed Normal [facility] CREATININE FINGERSTICKon CREATININE WB < 1.0 Normal 0.55-1.02 [facility] Comment on above: Performed By: #### M 100.2200 #### [facility] [address], [address] EGFR WB > 60.0000 Normal >60 [facility] Comment on above: Performed By: #### M 100.2200 #### [facility] [address] [place], [address] Basophil percentageOrdered B y: Chad Tony on 06-08-2023 Bilirubin [Mass/Vol] 0.60 mg/dL 0.20-1.00 [facility] Comment on above: For patients on eltr ombopag therapy, use of Dimension Lyman TBIL is not recommended. Chloride [Moles/Vol] 101 mmol/L 98-107 [facility] Cholesterol [Mass/Vol] 118 mg/dL <200 [facility] Comment on above: <200 mg/dL Desirable 200-240 mg/dL Borderline >240 mg/dL High Risk Glucose [Mass/Vol] 97 mg/dL 74-106 [facility] Hemoglobin (Bld) [Mass/Vol] 13.4 g/dL 12.0-15.0 [facility] Potassium [Moles/Vol] 4.3 mmol/L 3.5-5.1 [facility] Protein [Mass/Vol] 7.4 g/dL 6.4-8.2 [facility] Sodium [Moles/Vol] 134 mmol/L 136-145 [facility] Triglyceride [Mass/Vol] 52 mg/dL <199 [facility] Comment on above: The drugs N-Acetylcy steine and Metamizole may falsely depress this assay.Serum Triglycerides Reference Interval Normal <150 mg/dL Borderline high 150 - 199 mg/dL High 200 - 499 mg/dL Very High > or = 500 mg/dL WBC (Bld) [#/Vol] 6.6 10*3/uL 4.4-11.0 [facility] Determination of erythrocyte mean corpuscular volume (MCV)Ordered By: Chad Tony on 06-08-2023 MCV (RBC) [Entitic vol] 94.5 fL 81-99 [facility] Erythrocyte distribution wid th ratioOrdered By: Chad Tony on 06-08-2023 Erythrocyte distribution width (RBC) [Ratio] 13.2 % 11.6-14.6 [facility] Erythrocyte distribution wid th standard deviationOrdered By: Chad Tony on 06-08-2023 Erythrocyte distribution width (RBC) [Entitic vol] 45.8 fL 35.1-43.9 [facility] Hematocrit Auto (Bld) [Volum e fraction]Ordered By: Chad Tony on 06-08-2023 Hematocrit (Bld) [Volume fraction] 41.1 % 37-47 [facility] - Chemistry and C hemistry - challengeOrdered By: Chad Tony on 06-08-2023 Albumin/Globulin [Mass ratio] 0.9 {ratio} 0.9-2.4 [facility] ALP [Catalytic activity/Vol] 94 U/L 45-117 [facility] ALT [Catalytic activity/Vol] 26 U/L 13-56 [facility] Cholesterol in HDL [Mass/Vol] 76 mg/dL >40 [facility] Comment on above: The drugs N-Acetylcy steine and Metamizole may falsely depress this assay. Reference Range HDL <40 mg/dL Low HDL Cholesterol HDL >or= 60 mg/dL High HDL Cholesterol Cholesterol in LDL [Mass/Vol] 32 mg/dL 0-130 [facility] CO2 [Moles/Vol] 29.0 mmol/L 21.0-32.0 [facility] Globulin (S) [Mass/Vol] 3.9 g/dL 2.2-4.2 [facility] Urea nitrogen/Creatinine [Mass ratio] 14.3 mg/mg 10-20 [facility] - Hematology and Cell countsOrdered By: Chad Tony on 06-08-2023 MCH (RBC) [Entitic mass] 30.8 pg 27.0-32.0 [facility] MCHC (RBC) [Mass/Vol] 32.6 g/dL 32-36 [facility] Platelet mean volume (Bld) [Entitic vol] 9.6 fL 6.2-12.0 [facility] Platelets (Bld) [#/Vol] 231 10*3/uL 150-450 [facility] No Panel InformationOrdered By: Chad Tony on 06-08-2023 Estimated GFR (MDRD) Amer 83 mL/min >60 [facility] Comment on above: GFR Calc Estimated GFR (MDRD) Non-Af Amer 69 mL/min >60 [facility] Comment on above: Non- GFR Calc VLDL Cholesterol 10 mg/dL 5-40 [facility] RBC Auto (Bld) [#/Vol]Ordere d By: Chad Tony on 06-08-2023 RBC (Bld) [#/Vol] 4.35 10*6/uL 4.2-5.4 [facility] Serum or plasma calcium amandeep urement (mass/volume)Ordered By: Chad Tony on 06-08-2023 Calcium [Mass/Vol] 9.0 mg/dL 8.5-10.1 [facility] Serum or plasma creatinine m easurement (mass/volume)Ordered By: Chad Tony on 06-08-2023 Creatinine [Mass/Vol] 0.84 mg/dL 0.55-1.02 [facility] Comment on above: The validity of the calculated GFR & GFRAA in patients over 70 years has not been determined. Clinical correlation is essential. Serum or plasma urea nitroge n measurement (mass/volume)Ordered By: Chad Tony on 06-08-2023 Urea nitrogen [Mass/Vol] 12 mg/dL 7-18 [facility] Thin prep Papanicolaou smear with manual screeningOrdered By: Chad Tony on 06-08-2023 Thin prep Papanicolaou smear with manual screening 3.5 g/dL 3.2-5.0 [facility] Thin prep Papanicolaou smear with manual screening 27 U/L 15-37 [facility] Thin prep Papanicolaou smear with manual screening 4 5-15 [facility] Basophil percentageOrdered B y: Isabel Ribera on 04-25-2023 Basophil percentage 5-10 SEEN /hpf 0-5 [facility] Bilirubin Test strip Ql (U)O rdered By: Isabel Ribera on 04-25-2023 Bilirubin Ql (U) Negative Negative [facility] Culture, urineOrdered By: Tasneem Ribera on 04-25-2023 Bacteria identified Cx Nom (U) Culture exhibits no growth. [facility] Ketones Test strip Ql (U)Ord ered By: Isabel Ribera on 04-25-2023 Ketones Ql (U) Negative Negative [facility] Mucus LM Ql (Urine sed)Order ed By: Isabel Ribera on 04-25-2023 Mucus Ql (Urine sed) 0 SEEN /hpf [facility] Nitrite Test strip Ql (U)Ord ered By: Isabel Ribera on 04-25-2023 Nitrite Ql (U) Negative Negative [facility] Protein Test strip Ql (U)Ord ered By: Isabel Ribera on 04-25-2023 Protein Ql (U) Negative Negative [facility] Squamous epithelial cells de tection in urine sediment by light microscopyOrdered By: Isabel Ribera on 04-25-2023 Epithelial cells.squamous LM Ql (Urine sed) 5-10 SEEN /hpf 5-10 [facility] Urine blood detectionOrdered By: Isabel Ribera on 04-25-2023 RBC Ql (U) Negative Negative [facility] RBC Ql (U) 0 SEEN /hpf 0-5 [facility] Urine clarityOrdered By: Constantine Ribera on 04-25-2023 Clarity (U) Clear Clear [facility] Urine color determinationOrd ered By: Isabel Ribera on 04-25-2023 Color (U) Yellow Yellow [facility] Urine glucose detectionOrder ed By: Isabel Ribera on 04-25-2023 Glucose Ql (U) Normal mg/dl Normal [facility] Urine leukocyte esterase det ection by dipstickOrdered By: Isabel Ribera on 04-25-2023 Leukocyte esterase Test strip Ql (U) 500 /ul Negative [facility] Urine pHOrdered By: Isabel armstrong on 04-25-2023 pH (U) 6.5 [pH] 5.0 - 8.0 [facility] Urine sediment bacteria coun t by microscopy (number/high power field)Ordered By: Isabel Ribera on 04-25-2023 Bacteria LM.HPF (Urine sed) [#/Area] 1 /[HPF] None Seen [facility] Urine specific gravity measu rementOrdered By: Isabel Ribera on 04-25-2023 Specific gravity (U) [Rel density] 1.010 1.002-1.03 0 [facility] Urobilinogen Auto test strip Ql (U)Ordered By: Isabel Ribera on 04-25-2023 Urobilinogen Ql (U) Normal mg/dl Normal [facility] Laboratory - Chemistry and C hemistry - challengeon 04-24-2023 Bilirubin Ql (U) Negative [facility] Glucose Ql (U) Negative [facility] Ketones Ql (U) Negative [facility] pH (U) 6.0 [pH] [facility] Specific gravity (U) [Rel density] 1.005 [facility] Urobilinogen (U) [Mass/Vol] Negative [facility] - Hematology and Cell countson 04-24-2023 Hemoglobin Ql (U) Negative [facility] - Specimen inform ationon 04-24-2023 Clarity (U) Turbid [facility] Color (U) YELLOW [facility] - Urinalysison Nitrite Ql (U) Negative [facility] Protein Ql (U) Negative [facility] No Panel Informationon 04-24 Urine Leukocytes Positive [facility] Urine Non-Hemolyzed Blood Negative [facility] Bilirubin Test strip Ql (U)O rdered By: Mely Epperson on 01-06-2023 Bilirubin Ql (U) Negative Negative [facility] Ketones Test strip Ql (U)Ord ered By: Mely Brown on 01-06-2023 Ketones Ql (U) Negative Negative [facility] Nitrite Test strip Ql (U)Ord ered By: Mely Brown on 01-06-2023 Nitrite Ql (U) Negative Negative [facility] Protein Test strip Ql (U)Ord ered By: Mely Brown on 01-06-2023 Protein Ql (U) 15 mg/dl Negative [facility] Urine blood detectionOrdered By: Mely Epperson on 01-06-2023 RBC Ql (U) 150 /ul Negative [facility] Urine clarityOrdered By: Ra Epperson on 01-06-2023 Clarity (U) Sl. Cloudy Clear [facility] Urine color determinationOrd ered By: Mely Epperson on 01-06-2023 Color (U) Yellow Yellow [facility] Urine glucose detectionOrder ed By: Mely Epperson on 01-06-2023 Glucose Ql (U) Normal mg/dl Normal [facility] Urine leukocyte esterase det ection by dipstickOrdered By: Mely Epperson on 01-06-2023 Leukocyte esterase Test strip Ql (U) 500 /ul Negative [facility] Urine pHOrdered By: Mely Epperson on 01-06-2023 pH (U) 6.0 [pH] 5.0 - 8.0 [facility] Urine specific gravity measu rementOrdered By: Mely Epperson on 01-06-2023 Specific gravity (U) [Rel density] 1.010 1.002-1.03 0 [facility] Urobilinogen Auto test strip Ql (U)Ordered By: Mely Epperson on 01-06-2023 Urobilinogen Ql (U) Normal mg/dl Normal [facility] Basophil percentageOrdered B y: Mely Epperson on 11-11-2022 Basophil percentage 0 SEEN /hpf 0-5 [facility] Bilirubin Test strip Ql (U)O rdered By: Mely Epperson on 11-11-2022 Bilirubin Ql (U) Negative Negative [facility] Ketones Test strip Ql (U)Ord ered By: Mely Epperson on 11-11-2022 Ketones Ql (U) Negative Negative [facility] Mucus LM Ql (Urine sed)Order ed By: Mely Epperson on 11-11-2022 Mucus Ql (Urine sed) 0 SEEN /hpf [facility] Nitrite Test strip Ql (U)Ord ered By: Mely Brown on 11-11-2022 Nitrite Ql (U) Negative Negative [facility] Protein Test strip Ql (U)Ord ered By: Mely Brown on 11-11-2022 Protein Ql (U) Negative Negative [facility] Squamous epithelial cells de tection in urine sediment by light microscopyOrdered By: Mely Epperson on 11-11-2022 Epithelial cells.squamous LM Ql (Urine sed) 0-5 SEEN /hpf 5-10 [facility] Urine blood detectionOrdered By: Mely Epperson on 11-11-2022 RBC Ql (U) Negative Negative [facility] RBC Ql (U) 0 SEEN /hpf 0-5 [facility] Urine clarityOrdered By: Ra varun Geo on 11-11-2022 Clarity (U) Clear Clear [facility] Urine color determinationOrd ered By: Mely Epperson on 11-11-2022 Color (U) Yellow Yellow [facility] Urine glucose detectionOrder ed By: Mely Epperson on 11-11-2022 Glucose Ql (U) Normal mg/dl Normal [facility] Urine leukocyte esterase det ection by dipstickOrdered By: Mely Epperson on 11-11-2022 Leukocyte esterase Test strip Ql (U) 100 /ul Negative [facility] Urine pHOrdered By: Mely Epperson on 11-11-2022 pH (U) 6.5 [pH] 5.0 - 8.0 [facility] Urine sediment bacteria coun t by microscopy (number/high power field)Ordered By: Mely Epperson on 11-11-2022 Bacteria LM.HPF (Urine sed) [#/Area] 0 /[HPF] None Seen [facility] Urine sediment renal epithel ial cell count by microscopy (number/high power field)Ordered By: Mely Epperson on 11-11-2022 Epithelial cells.renal LM.HPF (Urine sed) [#/Area] 0 /[HPF] 0-5 [facility] Urine specific gravity measu rementOrdered By: Mely Epperson on 11-11-2022 Specific gravity (U) [Rel density] 1.010 1.002-1.03 0 [facility] Urobilinogen Auto test strip Ql (U)Ordered By: Mely Epperson on 11-11-2022 Urobilinogen Ql (U) Normal mg/dl Normal [facility] Basophil percentageOrdered B y: Arlene Huff on 11-05-2022 Basophil percentage < 0.9 mg/dL 0.55-1.02 [facility] No Panel InformationOrdered By: Arlene Huff on 11-05-2022 Bedside Estimated GFR (eGFR) > 60.0000 mL/min >60 [facility] Absolute lymphocyte countOrd ered By: Dr. Morales on 07-24-2022 Lymphocytes Auto (Unsp spec) [#/Vol] 2.48 10*3/uL 0.83-4.51 [facility] Basophil percentageOrdered B y: Dr. Morales on 07-24-2022 Basophils/100 WBC (Bld) 0.6 % 0-1 [facility] Chloride [Moles/Vol] 102 mmol/L 98-107 [facility] Eosinophils/100 WBC (Bld) 7.7 % 0-5 [facility] Glucose [Mass/Vol] 114 mg/dL 74-106 [facility] Comment on above: Fasting Glucose resu lt from 100 to 125 mg/dL suggests IMPAIRED HOMEOSTASIS per A.D.A. criteria. Neutrophils (Bld) [#/Vol] 4.7 10*3/uL 2.0-7.7 [facility] Neutrophils/100 WBC (Bld) 56.9 % 47-70 [facility] Potassium [Moles/Vol] 3.9 mmol/L 3.5-5.1 [facility] Sodium [Moles/Vol] 136 mmol/L 136-145 [facility] WBC (Bld) [#/Vol] 8.3 10*3/uL 4.4-11.0 [facility] Blood erythrocytes count (nu mber/volume)Ordered By: Dr. Morales on 07-24-2022 RBC (Bld) [#/Vol] 4.56 10*6/uL 4.2-5.4 [facility] Blood hemoglobin measurement (mass/volume)Ordered By: Dr. Morales on 07-24-2022 Hemoglobin (Bld) [Mass/Vol] 13.6 g/dL 12.0-15.0 [facility] Blood lymphocytes/100 leukoc ytesOrdered By: Dr. Morales on 07-24-2022 Lymphocytes/100 WBC (Bld) 29.8 % 19-41 [facility] Blood monocytes/100 leukocyt esOrdered By: Dr. Morales on 07-24-2022 Monocytes/100 WBC (Bld) 4.9 % 0-10 [facility] Blood platelet mean volumeOr dered By: Dr. Morales on 07-24-2022 Platelet mean volume (Bld) [Entitic vol] 9.7 fL 6.2-12.0 [facility] Determination of erythrocyte mean corpuscular volume (MCV)Ordered By: Dr. Morales on 07-24-2022 MCV (RBC) [Entitic vol] 93.0 fL 81-99 [facility] Hematocrit Auto (Bld) [Volum e fraction]Ordered By: Dr. Morales on 07-24-2022 Hematocrit (Bld) [Volume fraction] 42.4 % 37-47 [facility] - Chemistry and C hemistry - challengeOrdered By: Dr. Morales on 07-24-2022 CO2 [Moles/Vol] 27.0 mmol/L 21.0-32.0 [facility] Natriuretic peptide B (Bld) [Mass/Vol] 128.6 pg/mL 0-100 [facility] Urea nitrogen/Creatinine [Mass ratio] 16.1 mg/mg 10-20 [facility] - Hematology and Cell countsOrdered By: Dr. Morales on 07-24-2022 Erythrocyte distribution width (RBC) [Entitic vol] 50.8 fL 35.1-43.9 [facility] [facility] Erythrocyte distribution width (RBC) [Ratio] 14.7 % 11.6-14.6 [facility] Immature granulocytes/100 WBC (Bld) 0.100 % 0.0-0.9 [facility] Comment on above: IG% - Immature Granu locytes (promyelocytes, myelocytes and metamyelocytes) > 1% indicates that a LEFT SHIFT is Present. MCH (RBC) [Entitic mass] 29.8 pg 27.0-32.0 [facility] Nucleated RBC/100 WBC (Bld) [Ratio] 0 % 0-5 [facility] MCHC Auto (RBC) [Mass/Vol]Or dered By: Dr. Morales on 07-24-2022 MCHC (RBC) [Mass/Vol] 32.1 g/dL 32-36 [facility] No Panel InformationOrdered By: Dr. Morales on 07-24-2022 Estimated Creatinine Clearance Calc 35.88 ml/min [facility] Estimated GFR (MDRD) Amer 96 mL/min >60 [facility] Comment on above: GFR Calc Estimated GFR (MDRD) Non-Af Amer 79 mL/min >60 [facility] Comment on above: Non- GFR Calc Troponin I High Sensitivity 8 pg/mL 3.0-54.0 [facility] Comment on above: Please Note: New Pamela t Units and Gender Specific Reference Ranges. For more information see Policy Stat Procedure Lyman High Sensitivity Troponin (TNIH) and attachments. Platelets bldOrdered By: Dr. Morales on 07-24-2022 Platelets (Bld) [#/Vol] 223 10*3/uL 150-450 [facility] Serum or plasma calcium amandeep urement (mass/volume)Ordered By: Dr. Morales on 07-24-2022 Calcium [Mass/Vol] 9.0 mg/dL 8.5-10.1 [facility] Serum or plasma creatinine m easurement (mass/volume)Ordered By: Dr. Morales on 07-24-2022 Creatinine [Mass/Vol] 0.75 mg/dL 0.55-1.02 [facility] Comment on above: The validity of the calculated GFR & GFRAA in patients over 70 years has not been determined. Clinical correlation is essential. Serum or plasma urea nitroge n measurement (mass/volume)Ordered By: Dr. Morales on 07-24-2022 Urea nitrogen [Mass/Vol] 12 mg/dL 7-18 [facility] Thin prep Papanicolaou smear with manual screeningOrdered By: Dr. Morales on 07-24-2022 Thin prep Papanicolaou smear with manual screening 7 5-15 [facility] Absolute lymphocyte countOrd ered By: Dr. Morales on 07-23-2022 Lymphocytes Auto (Unsp spec) [#/Vol] 1.93 10*3/uL 0.83-4.51 [facility] Basophil percentageOrdered B y: Dr. Morales on 07-23-2022 Basophils/100 WBC (Bld) 1.1 % 0-1 [facility] Chloride [Moles/Vol] 102 mmol/L 98-107 [facility] Eosinophils/100 WBC (Bld) 5.9 % 0-5 [facility] Glucose [Mass/Vol] 106 mg/dL 74-106 [facility] Comment on above: Fasting Glucose resu lt from 100 to 125 mg/dL suggests IMPAIRED HOMEOSTASIS per A.D.A. criteria. Neutrophils (Bld) [#/Vol] 4.7 10*3/uL 2.0-7.7 [facility] Neutrophils/100 WBC (Bld) 61.9 % 47-70 [facility] Potassium [Moles/Vol] 3.6 mmol/L 3.5-5.1 [facility] Sodium [Moles/Vol] 137 mmol/L 136-145 [facility] WBC (Bld) [#/Vol] 7.5 10*3/uL 4.4-11.0 [facility] Blood erythrocytes count (nu mber/volume)Ordered By: Dr. Morales on 07-23-2022 RBC (Bld) [#/Vol] 4.38 10*6/uL 4.2-5.4 [facility] Blood hemoglobin measurement (mass/volume)Ordered By: Dr. Morales on 07-23-2022 Hemoglobin (Bld) [Mass/Vol] 13.0 g/dL 12.0-15.0 [facility] Blood lymphocytes/100 leukoc ytesOrdered By: Dr. Morales on 07-23-2022 Lymphocytes/100 WBC (Bld) 25.7 % 19-41 [facility] Blood monocytes/100 leukocyt esOrdered By: Dr. Morales on 07-23-2022 Monocytes/100 WBC (Bld) 5.1 % 0-10 [facility] Blood platelet mean volumeOr dered By: Dr. Morales on 07-23-2022 Platelet mean volume (Bld) [Entitic vol] 10.0 fL 6.2-12.0 [facility] Determination of erythrocyte mean corpuscular volume (MCV)Ordered By: Dr. Morales on 07-23-2022 MCV (RBC) [Entitic vol] 90.6 fL 81-99 [facility] HCO3 (BldA) [Moles/Vol]Order ed By: Dr. Morales on 07-23-2022 HCO3 (Bld) [Moles/Vol] 29 mmol/L 22-26 [facility] Hematocrit Auto (Bld) [Volum e fraction]Ordered By: Dr. Morales on 07-23-2022 Hematocrit (Bld) [Volume fraction] 39.7 % 37-47 [facility] Influenza virus A and B and SARS-CoV-2 (COVID-19) Ag panel - Upper respiratory specimOrdered By: Munir Morales on 07-23-2022 SARS-CoV-2 (COVID-19) RNA RICKIE+probe Ql (Resp) [facility] Influenza virus A and B and SARS-CoV-2 (COVID-19) Ag panel - Upper respiratory specimOrdered By: Dr. Morales on 07-23-2022 SARS-CoV-2 (COVID-19) RNA RICKIE+probe Ql (Resp) [facility] Laboratory - Chemistry and C hemistry - challengeOrdered By: Dr. Morales on 07-23-2022 CO2 [Moles/Vol] 30 mmol/L 23-33 [facility] CO2 [Moles/Vol] 28.0 mmol/L 21.0-32.0 [facility] Natriuretic peptide B (Bld) [Mass/Vol] 116.5 pg/mL 0-100 [facility] Urea nitrogen/Creatinine [Mass ratio] 20.2 mg/mg 10-20 [facility] Laboratory - Hematology and Cell countsOrdered By: Dr. Morales on 07-23-2022 Erythrocyte distribution width (RBC) [Entitic vol] 48.3 fL 35.1-43.9 [facility] Erythrocyte distribution width (RBC) [Ratio] 14.5 % 11.6-14.6 [facility] Immature granulocytes/100 WBC (Bld) 0.300 % 0.0-0.9 [facility] Comment on above: IG% - Immature Granu locytes (promyelocytes, myelocytes and metamyelocytes) > 1% indicates that a LEFT SHIFT is Present. MCH (RBC) [Entitic mass] 29.7 pg 27.0-32.0 [facility] Nucleated RBC/100 WBC (Bld) [Ratio] 0 % 0-5 [facility] MCHC Auto (RBC) [Mass/Vol]Or dered By: Dr. Morales on 07-23-2022 MCHC (RBC) [Mass/Vol] 32.7 g/dL 32-36 [facility] No Panel InformationOrdered By: Dr. Morales on 03-23-2023 Bed Mix Venous Bld PCO2 at Pat Temp 45.4 mmHg 41-51 [facility] Blood Gas Specimen Type MAURILIO [facility] Venous Blood Base Excess 4 mmol/L -1.0-3.5 [facility] Estimated Creatinine Clearance Calc 35.88 ml/min [facility] Estimated GFR (MDRD) Amer 96 mL/min >60 [facility] Comment on above: GFR Calc Estimated GFR (MDRD) Non-Af Amer 79 mL/min >60 [facility] Comment on above: Non- GFR Calc Troponin I High Sensitivity 7 pg/mL 3.0-54.0 [facility] Comment on above: Please Note: New Pamela t Units and Gender Specific Reference Ranges. For more information see Policy Stat Procedure Lyman High Sensitivity Troponin (TNIH) and attachments. PO2 venousOrdered By: Dr. Heavenly garnica on 07-23-2022 Oxygen (BldV) [Partial pressure] 43 mm[Hg] 25-40 [facility] Platelets bldOrdered By: Dr. Morales on 07-23-2022 Platelets (Bld) [#/Vol] 242 10*3/uL 150-450 [facility] Serum or plasma calcium amandeep urement (mass/volume)Ordered By: Dr. Morales on 07-23-2022 Calcium [Mass/Vol] 9.2 mg/dL 8.5-10.1 [facility] Serum or plasma creatinine m easurement (mass/volume)Ordered By: Dr. Morales on 07-23-2022 Creatinine [Mass/Vol] 0.74 mg/dL 0.55-1.02 [facility] Comment on above: The validity of the calculated GFR & GFRAA in patients over 70 years has not been determined. Clinical correlation is essential. Serum or plasma urea nitroge n measurement (mass/volume)Ordered By: Dr. Morales on 07-23-2022 Urea nitrogen [Mass/Vol] 15 mg/dL 7-18 [facility] Thin prep Papanicolaou smear with manual screeningOrdered By: Dr. Morales on 07-23-2022 Thin prep Papanicolaou smear with manual screening 7 5-15 [facility] Vital signsOrdered By: Dr. Lucinda degroot on 07-23-2022 Oxygen saturation in Blood 78 % 50-70 [facility] pH measurementOrdered By: Dr Alta Morales on 07-23-2022 pH (Unsp spec) 7.41 [pH] 7.32-7.42 [facility] Culture, urineOrdered By: Rigo Manley on 07-03-2022 Bacteria identified Cx Nom (U) Positive [facility] Basophil percentageOrdered B y: Raf Manley on 06-30-2022 Basophil percentage 10-25 SEEN /hpf 0-5 [facility] Bilirubin Test strip Ql (U)O rdered By: Raf Manley on 06-30-2022 Bilirubin Ql (U) Negative Negative [facility] Ketones Test strip Ql (U)Ord ered By: Raf Manley on 06-30-2022 Ketones Ql (U) Negative Negative [facility] Mucus LM Ql (Urine sed)Order ed By: Raf Manley on 06-30-2022 Mucus Ql (Urine sed) 0 SEEN /hpf [facility] Nitrite Test strip Ql (U)Ord ered By: Raf Manley on 06-30-2022 Nitrite Ql (U) Negative Negative [facility] Protein Test strip Ql (U)Ord ered By: Raf Manley on 06-30-2022 Protein Ql (U) 15 mg/dl Negative [facility] Squamous epithelial cells de tection in urine sediment by light microscopyOrdered By: Raf Manley on 06-30-2022 Epithelial cells.squamous LM Ql (Urine sed) 0-5 SEEN /hpf 5-10 [facility] Urine blood detectionOrdered By: Raf Manley on 06-30-2022 RBC Ql (U) Negative Negative [facility] RBC Ql (U) 0 SEEN /hpf 0-5 [facility] Urine clarityOrdered By: Sarahy Manley on 06-30-2022 Clarity (U) Sl. Cloudy Clear [facility] Urine color determinationOrd ered By: Raf Manley on 06-30-2022 Color (U) Straw Yellow [facility] Urine glucose detectionOrder ed By: Raf Manley on 06-30-2022 Glucose Ql (U) Normal mg/dl Normal [facility] Urine leukocyte esterase det ection by dipstickOrdered By: Raf Manley on 06-30-2022 Leukocyte esterase Test strip Ql (U) 100 /ul Negative [facility] Urine pHOrdered By: Raf carlin on 06-30-2022 pH (U) 6.5 [pH] 5.0 - 8.0 [facility] Urine sediment bacteria coun t by microscopy (number/high power field)Ordered By: Raf Manley on 06-30-2022 Bacteria LM.HPF (Urine sed) [#/Area] 0 /[HPF] None Seen [facility] Urine specific gravity measu rementOrdered By: Raf Manley on 06-30-2022 Specific gravity (U) [Rel density] 1.010 1.002-1.03 0 [facility] Urobilinogen Auto test strip Ql (U)Ordered By: Raf Manley on 06-30-2022 Urobilinogen Ql (U) Normal mg/dl Normal [facility] Iron measurement (mass/mass) Ordered By: Arlene Huff on 05-20-2022 Iron (Unsp spec) [Mass/Mass] 56 ug/dL 50-170 [facility] No Panel InformationOrdered By: Arlene Huff on 05-20-2022 Total Iron Binding Capacity 359 ug/dL 250-450 [facility] Serum or plasma ferritin indra surement (mass/volume)Ordered By: Arlene Huff on 05-20-2022 Ferritin [Mass/Vol] 16 ng/mL 8-252 [facility] Serum or plasma iron saturat ion measurement (mass fraction)Ordered By: Arlene Huff on 05-20-2022 Iron saturation [Mass fraction] 15.6 % 15.0-55.0 [facility] Laboratory - Chemistry and C hemistry - challengeon 05-14-2022 Bilirubin Ql (U) Negative [facility] Glucose Ql (U) Negative [facility] Ketones Ql (U) Negative [facility] pH (U) 5.0 [pH] [facility] Specific gravity (U) [Rel density] 1.010 [facility] Urobilinogen (U) [Mass/Vol] 0.6562556 mg/dL [facility] Laboratory - Hematology and Cell countson 05-14-2022 Hemoglobin Ql (U) Negative [facility] Laboratory - Specimen inform ationon 05-14-2022 Clarity (U) Slightly Hazy [facility] Color (U) YELLOW [facility] Laboratory - Urinalysison Nitrite Ql (U) Negative [facility] Protein Ql (U) Negative [facility] No Panel Informationon 05-14 Urine Leukocytes Negatve [facility] Laboratory - Chemistry and C hemistry - challengeon 05-06-2022 Bilirubin Ql (U) Negative [facility] Glucose Ql (U) Negative [facility] Ketones Ql (U) Negative [facility] pH (U) 6.0 [pH] [facility] Specific gravity (U) [Rel density] 1.005 [facility] Urobilinogen (U) [Mass/Vol] 0.3638296 mg/dL [facility] Laboratory - Hematology and Cell countson 05-06-2022 Hemoglobin Ql (U) Negative [facility] Laboratory - Specimen inform ationon 05-06-2022 Clarity (U) Clear [facility] Color (U) Yellow [facility] Laboratory - Urinalysison Nitrite Ql (U) Negative [facility] Protein Ql (U) Trace [facility] No Panel Informationon 05-06 Urine Leukocytes Positive [facility] Urine Non-Hemolyzed Blood Non-Hemolyzed [facility] Culture, urineOrdered By: Ra sergio Shea on 02-28-2022 Bacteria identified Cx Nom (U) Enterococcus faecalis [facility] Basophil percentageOrdered B y: Kady Adánoron on 02-26-2022 Basophil percentage 5-10 SEEN /hpf 0-5 [facility] Bilirubin Test strip Ql (U)O rdered By: Kady McGoron on 02-26-2022 Bilirubin Ql (U) Negative Negative [facility] Ketones Test strip Ql (U)Ord ered By: Kady McGoron on 02-26-2022 Ketones Ql (U) Negative Negative [facility] Mucus LM Ql (Urine sed)Order ed By: Kady McGoron on 02-26-2022 Mucus Ql (Urine sed) 0 SEEN /hpf [facility] Nitrite Test strip Ql (U)Ord ered By: Kady McGoron on 02-26-2022 Nitrite Ql (U) Negative Negative [facility] Protein Test strip Ql (U)Ord ered By: Kady McGoron on 02-26-2022 Protein Ql (U) Negative Negative [facility] Squamous epithelial cells de tection in urine sediment by light microscopyOrdered By: Kady Shea on 02-26-2022 Epithelial cells.squamous LM Ql (Urine sed) 0-5 SEEN /hpf 5-10 [facility] Urine blood detectionOrdered By: Kady Shea on 02-26-2022 RBC Ql (U) Negative Negative [facility] RBC Ql (U) 0 SEEN /hpf 0-5 [facility] Urine clarityOrdered By: Jim Shea on 02-26-2022 Clarity (U) Clear Clear [facility] Urine color determinationOrd ered By: Kady Shea on 02-26-2022 Color (U) Yellow Yellow [facility] Urine glucose detectionOrder ed By: Kady Shea on 02-26-2022 Glucose Ql (U) Normal mg/dl Normal [facility] Urine leukocyte esterase det ection by dipstickOrdered By: Kady Shea on 02-26-2022 Leukocyte esterase Test strip Ql (U) 500 /ul Negative [facility] Urine pHOrdered By: Kady Shea on 02-26-2022 pH (U) 6.5 [pH] 5.0 - 8.0 [facility] Urine sediment bacteria coun t by microscopy (number/high power field)Ordered By: Kady Shea on 02-26-2022 Bacteria LM.HPF (Urine sed) [#/Area] 1 /[HPF] None Seen [facility] Urine specific gravity measu rementOrdered By: Kady Shea on 02-26-2022 Specific gravity (U) [Rel density] 1.010 1.002-1.03 0 [facility] Urobilinogen Auto test strip Ql (U)Ordered By: Kady Shea on 02-26-2022 Urobilinogen Ql (U) Normal mg/dl Normal [facility] Basophil percentageOrdered B y: Dr. Epperson on 02-12-2022 Basophil percentage 10-25 SEEN /hpf 0-5 [facility] Bilirubin Test strip Ql (U)O rdered By: Dr. Epperson on 02-12-2022 Bilirubin Ql (U) Negative Negative [facility] Ketones Test strip Ql (U)Ord ered By: Dr. Epperson on 02-12-2022 Ketones Ql (U) Negative Negative [facility] Mucus LM Ql (Urine sed)Order ed By: Dr. Epperson on 02-12-2022 Mucus Ql (Urine sed) 0 SEEN /hpf [facility] Nitrite Test strip Ql (U)Ord ered By: Dr. Epperson on 02-12-2022 Nitrite Ql (U) Negative Negative [facility] Protein Test strip Ql (U)Ord ered By: Dr. Epperson on 02-12-2022 Protein Ql (U) Negative Negative [facility] Squamous epithelial cells de tection in urine sediment by light microscopyOrdered By: Dr. Epperson on 02-12-2022 Epithelial cells.squamous LM Ql (Urine sed) 0-5 SEEN /hpf 5-10 [facility] Urine blood detectionOrdered By: Dr. Epperson on 02-12-2022 RBC Ql (U) Negative Negative [facility] RBC Ql (U) 0-5 SEEN /hpf 0-5 [facility] Urine clarityOrdered By: Dr. Epperson on 02-12-2022 Clarity (U) Clear Clear [facility] Urine color determinationOrd ered By: Dr. Epperson on 02-12-2022 Color (U) Yellow Yellow [facility] Urine glucose detectionOrder ed By: Dr. Epperson on 02-12-2022 Glucose Ql (U) Normal mg/dl Normal [facility] Urine leukocyte esterase det ection by dipstickOrdered By: Dr. Epperson on 02-12-2022 Leukocyte esterase Test strip Ql (U) 500 /ul Negative [facility] Urine pHOrdered By: Dr. Maryuri walter on 02-12-2022 pH (U) 6.5 [pH] 5.0 - 8.0 [facility] Urine sediment bacteria coun t by microscopy (number/high power field)Ordered By: Dr. Epperson on 02-12-2022 Bacteria LM.HPF (Urine sed) [#/Area] 4 /[HPF] None Seen [facility] Urine specific gravity measu rementOrdered By: Dr. Epperson on 02-12-2022 Specific gravity (U) [Rel density] 1.005 1.002-1.03 0 [facility] Urobilinogen Auto test strip Ql (U)Ordered By: Dr. Epperson on 02-12-2022 Urobilinogen Ql (U) Normal mg/dl Normal [facility] Basophil percentageon 2021 Basophil percentage 10-25 SEEN /hpf 0-5 [facility] Work Phone: Bilirubin Test strip Ql (U)o n 01-21-2022 Bilirubin Ql (U) Negative Negative [facility] Work Phone: Ketones Test strip Ql (U)on 01-21-2022 Ketones Ql (U) Negative Negative [facility] Work Phone: Laboratory - Chemistry and C hemistry - challengeon 01-21-2022 Bilirubin Ql (U) Negative [facility] Work Phone: Glucose Ql (U) Negative [facility] Work Phone: Ketones Ql (U) Trace (5) [facility] Work Phone: pH (U) 5.0 [pH] [facility] Work Phone: Specific gravity (U) [Rel density] 1.020 [facility] Work Phone: Urobilinogen (U) [Mass/Vol] Negative [facility] Work Phone: Laboratory - Hematology and Cell countson 01-21-2022 Hemoglobin Ql (U) Negative [facility] Work Phone: Laboratory - Specimen inform ationon 01-21-2022 Clarity (U) Cloudy [facility] Work Phone: Color (U) DARK YELLOW [facility] Work Phone: Laboratory - Urinalysison Nitrite Ql (U) Negative [facility] Work Phone: Protein Ql (U) Negative [facility] Work Phone: Mucus LM Ql (Urine sed)on Mucus Ql (Urine sed) 0 SEEN /hpf [facility] Work Phone: Nitrite Test strip Ql (U)on 01-21-2022 Nitrite Ql (U) Negative Negative [facility] Work Phone: No Panel Informationon 01-21 Urine Leukocytes Positive [facility] Work Phone: Urine Non-Hemolyzed Blood Negative [facility] Work Phone: Protein Test strip Ql (U)on 01-21-2022 Protein Ql (U) 30 mg/dl Negative [facility] Work Phone: Squamous epithelial cells de tection in urine sediment by light microscopyon 01-21-2022 Epithelial cells.squamous LM Ql (Urine sed) 0-5 SEEN /hpf 5-10 [facility] Work Phone: Urine blood detectionon 01-02 RBC Ql (U) Negative Negative [facility] Work Phone: RBC Ql (U) 0 SEEN /hpf 0-5 [facility] Work Phone: Urine clarityon 01-21-2022 Clarity (U) Sl. Cloudy Clear [facility] Work Phone: Urine color determinationon 01-21-2022 Color (U) Yellow Yellow [facility] Work Phone: Urine glucose detectionon Glucose Ql (U) Normal mg/dl Normal [facility] Work Phone: Urine leukocyte esterase det ection by dipstickon 01-21-2022 Leukocyte esterase Test strip Ql (U) 100 /ul Negative [facility] Work Phone: Urine pHon 01-21-2022 pH (U) 6.0 [pH] 5.0 - 8.0 [facility] Work Phone: Urine sediment bacteria coun t by microscopy (number/high power field)on 01-21-2022 Bacteria LM.HPF (Urine sed) [#/Area] 3 /[HPF] None Seen [facility] Work Phone: Urine specific gravity measu rementon 01-21-2022 Specific gravity (U) [Rel density] 1.020 1.002-1.03 0 [facility] Work Phone: Urobilinogen Auto test strip Ql (U)on 01-21-2022 Urobilinogen Ql (U) Normal mg/dl Normal [facility] Work Phone: Laboratory - Chemistry and C hemistry - challengeon 01-08-2022 Cobalamin (Vitamin B12) [Mass/Vol] 1946 pg/mL 211-911 [facility] Work Phone: No Panel Informationon 01-08 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 Whole Blood Vitamin B1 Level See comment [facility] Work Phone: Comment on above: TEST RESULT LIMITSVi tamin B1 (Thiamine), BloodVit. B1, Whole Blood A, 149.3 nmol/L 66.5-200.0A: This test was developed and its performance characteristics determined by [facility]. It has not been cleared or approved by the Food and DrugAdministration. TESTING PERFORMED AT [facility]. ORIGINAL REPORT ON FILE IN LAB CONTAINS ADDITIONAL TEST SITE INFORMATION. Serum Martínez extractable nucl ear antibody detectionon 01-08-2022 Martínez extractable nuclear Ab Ql (S) <0.2 AI 0.0-0.9 [facility] Work Phone: Serum or plasma IgA measurem ent (mass/volume)on 01-08-2022 IgA [Mass/Vol] Not Reportable [facility] Work Phone: Serum or plasma IgG measurem ent (mass/volume)on 01-08-2022 IgG [Mass/Vol] See comment [facility] Work Phone: Comment on above: TEST RESULT LIMITSIm munoglobulin G, Qn,Serum 1363 mg/dL [phone] A, Qn,Serum 280 mg/dL 64-422Immunoglobulin M, Qn,Serum 77 mg/dL 26-217 TESTING PERFORMED AT [facility]. ORIGINAL REPORT ON FILE IN LAB CONTAINS ADDITIONAL TEST SITE INFORMATION. Serum or plasma IgM measurem ent (mass/volume)on 01-08-2022 IgM [Mass/Vol] Not Reportable [facility] Work Phone: Serum or plasma folate measu rement (mass/volume)on 01-08-2022 Folate [Mass/Vol] 28.80 ng/mL 3.1-55.4 [facility] Work Phone: Serum or plasma methylmalona te measurement (moles/volume)on 01-08-2022 Methylmalonate [Moles/Vol] 153 nmol/L 0-378 [facility] Work Phone: Comment on above: Performed at: [address] [id number] Director: Omid Dhaliwal PhD, Phone: [phone] at: [address] [id number] Director: Cinthia Huber MD, Phone: [phone] Serum rheumatoid factor dete ctionon 01-08-2022 Rheumatoid factor Ql (S) < 10.0 IU/mL <15 [facility] Work Phone: Thin prep Papanicolaou smear with manual screeningon 01-08-2022 Thin prep Papanicolaou smear with manual screening See comment [facility] Work Phone: Comment on above: TEST RESULT LIMITSCo pper, Serum or Plasma A, 114 ug/dL 80-158 Detection Limit = 5 TESTING PERFORMED AT [facility]. ORIGINAL REPORT ON FILE IN LAB CONTAINS ADDITIONAL TEST SITE INFORMATION. Total protein bloodon 2021 Protein [Mass/Vol] See comment [facility]: Comment on above: TEST RESULT LIMITSPr otein Elec + Interp, SerumProtein, Total 6.8 g/dL 6.0-8.5Albumin 3.2 g/dL 2.9-4.3Eyqna-[id number]-Xuvkjmjw 0.4 g/dL 0.0-0.3Vuxwq-3-Wxuexmlq 0.8 g/dL 0.4-1.0Beta Globulin 0.9 g/dL 0.7-1.3Gamma Globulin 1.5 g/dL 0.4-1.8M-Omar Not Observed g/dL Not ObservedGlobulin, Total 3.6 g/dL 2.2-3.9A/G Ratio 0.9 0.7-1.7Please note: Protein electrophoresis scan will follow via computer, mail, or candy decorator delivery.P E Interpretation, SThe SPE pattern appears unremarkable. Evidence of monoclonalprotein is not apparent. __ TESTING PERFORMED AT [facility]. ORIGINAL REPORT ON FILE IN LAB CONTAINS ADDITIONAL TEST SITE INFORMATION. Absolute lymphocyte counton 11-16-2021 Lymphocytes Auto (Unsp spec) [#/Vol] 1.60 10*3/uL 0.83-4.51 [facility] Work Phone: Basophil percentageon 2021 Basophils/100 WBC (Bld) 0.5 % 0-1 [facility] Work Phone: Eosinophils/100 WBC (Bld) 1.4 % 0-5 [facility] Work Phone: Neutrophils (Bld) [#/Vol] 10.5 10*3/uL 2.0-7.7 [facility] Work Phone: Neutrophils/100 WBC (Bld) 78.5 % 47-70 [facility] Work Phone: WBC (Bld) [#/Vol] 13.3 10*3/uL 4.4-11.0 [facility] Work Phone: Blood erythrocytes count (nu mber/volume)on 11-16-2021 RBC (Bld) [#/Vol] 3.73 10*6/uL 4.2-5.4 [facility] Work Phone: Blood hemoglobin measurement (mass/volume)on 11-16-2021 Hemoglobin (Bld) [Mass/Vol] 11.8 g/dL 12.0-15.0 [facility] Work Phone: Blood lymphocytes/100 leukoc yteson 11-16-2021 Lymphocytes/100 WBC (Bld) 12.0 % 19-41 [facility] Work Phone: Blood monocytes/100 leukocyt eson 11-16-2021 Monocytes/100 WBC (Bld) 7.1 % 0-10 [facility] Work Phone: Blood platelet mean volumeon 11-16-2021 Platelet mean volume (Bld) [Entitic vol] 9.6 fL 6.2-12.0 [facility] Work Phone: Determination of erythrocyte mean corpuscular volume (MCV)on 11-16-2021 MCV (RBC) [Entitic vol] 95.4 fL 81-99 [facility] Work Phone: Hematocrit Auto (Bld) [Volum e fraction]on 11-16-2021 Hematocrit (Bld) [Volume fraction] 35.6 % 37-47 [facility] Work Phone: Laboratory - Hematology and Cell countson 11-16-2021 Erythrocyte distribution width (RBC) [Entitic vol] 44.8 fL 35.1-43.9 [facility] Work Phone: Erythrocyte distribution width (RBC) [Ratio] 12.9 % 11.6-14.6 [facility] Work Phone: Immature granulocytes/100 WBC (Bld) 0.500 % 0.0-0.9 [facility] Work Phone: Comment on above: IG% - Immature Granu locytes (promyelocytes, myelocytes and metamyelocytes) > 1% indicates that a LEFT SHIFT is Present. MCH (RBC) [Entitic mass] 31.6 pg 27.0-32.0 [facility] Work Phone: Nucleated RBC/100 WBC (Bld) [Ratio] 0 % 0-5 [facility] Work Phone: MCHC Auto (RBC) [Mass/Vol]on 11-16-2021 MCHC (RBC) [Mass/Vol] 33.1 g/dL 32-36 [facility] Work Phone: Platelets bldon 11-16-2021 Platelets (Bld) [#/Vol] 249 10*3/uL 150-450 [facility] Work Phone: Basophil percentageon 2021 Bilirubin [Mass/Vol] 0.50 mg/dL 0.20-1.00 [facility] Work Phone: Comment on above: For patients on eltr ombopag therapy, use of Dimension Lyman TBIL is not recommended. Chloride [Moles/Vol] 104 mmol/L 98-107 [facility] Work Phone: Glucose [Mass/Vol] 115 mg/dL 74-106 [facility] Work Phone: Comment on above: Fasting Glucose resu lt from 100 to 125 mg/dL suggests IMPAIRED HOMEOSTASIS per A.D.A. criteria. Potassium [Moles/Vol] 4.4 mmol/L 3.5-5.1 [facility] Work Phone: Protein [Mass/Vol] 5.6 g/dL 6.4-8.2 [facility] Work Phone: Sodium [Moles/Vol] 135 mmol/L 136-145 [facility] Work Phone: Laboratory - Chemistry and C hemistry - challengeon 11-15-2021 ALP [Catalytic activity/Vol] 76 U/L 45-117 [facility] Work Phone: ALT [Catalytic activity/Vol] 19 U/L 13-56 [facility] Work Phone: CO2 [Moles/Vol] 21.0 mmol/L 21.0-32.0 [facility] Work Phone: Globulin (S) [Mass/Vol] 3.1 g/dL 2.2-4.2 [facility] Work Phone: Urea nitrogen/Creatinine [Mass ratio] 22.1 mg/mg 10-20 [facility] Work Phone: No Panel Informationon 11-15 Estimated Creatinine Clearance Calc 39.70 ml/min [facility] Work Phone: Estimated GFR (MDRD) Amer 107 mL/min >60 [facility] Work Phone: Comment on above: GFR Calc Estimated GFR (MDRD) Non-Af Amer 88 mL/min >60 [facility] Work Phone: Comment on above: Non- GFR Calc Serum or plasma albumin amandeep urement (mass/volume)on 11-15-2021 Albumin [Mass/Vol] 2.5 g/dL 3.2-5.0 [facility] Work Phone: Serum or plasma albumin/glob ulin mass ratioon 11-15-2021 Albumin/Globulin [Mass ratio] 0.8 {ratio} 0.9-2.4 [facility] Work Phone: Serum or plasma calcium amandeep urement (mass/volume)on 11-15-2021 Calcium [Mass/Vol] 7.9 mg/dL 8.5-10.1 [facility] Work Phone: Serum or plasma creatinine m easurement (mass/volume)on 11-15-2021 Creatinine [Mass/Vol] 0.68 mg/dL 0.55-1.02 [facility] Work Phone: Comment on above: The validity of the calculated GFR & GFRAA in patients over 70 years has not been determined. Clinical correlation is essential. Serum or plasma urea nitroge n measurement (mass/volume)on 11-15-2021 Urea nitrogen [Mass/Vol] 15 mg/dL 7-18 [facility] Work Phone: Thin prep Papanicolaou smear with manual screeningon 11-15-2021 Thin prep Papanicolaou smear with manual screening 27 U/L 15-37 [facility] Work Phone: Thin prep Papanicolaou smear with manual screening 10 5-15 [facility] Work Phone: Absolute lymphocyte counton 11-14-2021 Lymphocytes Auto (Unsp spec) [#/Vol] 1.42 10*3/uL 0.83-4.51 [facility] Work Phone: Basophil percentageon 2021 Basophils/100 WBC (Bld) 0.3 % 0-1 [facility] Work Phone: Bilirubin [Mass/Vol] 0.80 mg/dL 0.20-1.00 [facility] Work Phone: Comment on above: For patients on eltr ombopag therapy, use of Dimension Lyman TBIL is not recommended. Chloride [Moles/Vol] 100 mmol/L 98-107 [facility] Work Phone: Eosinophils/100 WBC (Bld) 0.3 % 0-5 [facility] Work Phone: Glucose [Mass/Vol] 120 mg/dL 74-106 [facility] Work Phone: Comment on above: Fasting Glucose resu lt from 100 to 125 mg/dL suggests IMPAIRED HOMEOSTASIS per A.D.A. criteria. Neutrophils (Bld) [#/Vol] 12.9 10*3/uL 2.0-7.7 [facility] Work Phone: Neutrophils/100 WBC (Bld) 83.2 % 47-70 [facility] Work Phone: Potassium [Moles/Vol] 4.3 mmol/L 3.5-5.1 [facility] Work Phone: Protein [Mass/Vol] 6.3 g/dL 6.4-8.2 [facility] Work Phone: Sodium [Moles/Vol] 133 mmol/L 136-145 [facility] Work Phone: WBC (Bld) [#/Vol] 15.5 10*3/uL 4.4-11.0 [facility] Work Phone: Blood erythrocytes count (nu mber/volume)on 11-14-2021 RBC (Bld) [#/Vol] 3.96 10*6/uL 4.2-5.4 [facility] Work Phone: Blood hemoglobin measurement (mass/volume)on 11-14-2021 Hemoglobin (Bld) [Mass/Vol] 12.6 g/dL 12.0-15.0 [facility] Work Phone: Blood lymphocytes/100 leukoc yteson 11-14-2021 Lymphocytes/100 WBC (Bld) 9.2 % 19-41 [facility] Work Phone: Blood monocytes/100 leukocyt eson 11-14-2021 Monocytes/100 WBC (Bld) 6.5 % 0-10 [facility] Work Phone: Blood platelet mean volumeon 11-14-2021 Platelet mean volume (Bld) [Entitic vol] 9.1 fL 6.2-12.0 [facility] Work Phone: Determination of erythrocyte mean corpuscular volume (MCV)on 11-14-2021 MCV (RBC) [Entitic vol] 93.9 fL 81-99 [facility] Work Phone: Hematocrit Auto (Bld) [Volum e fraction]on 11-14-2021 Hematocrit (Bld) [Volume fraction] 37.2 % 37-47 [facility] Work Phone: Laboratory - Chemistry and C hemistry - challengeon 11-14-2021 ALP [Catalytic activity/Vol] 86 U/L 45-117 [facility] Work Phone: ALT [Catalytic activity/Vol] 23 U/L 13-56 [facility] Work Phone: CO2 [Moles/Vol] 29.0 mmol/L 21.0-32.0 [facility] Work Phone: Globulin (S) [Mass/Vol] 3.4 g/dL 2.2-4.2 [facility] Work Phone: Urea nitrogen/Creatinine [Mass ratio] 19.1 mg/mg 10-20 [facility] Work Phone: Laboratory - Hematology and Cell countson 11-14-2021 Erythrocyte distribution width (RBC) [Entitic vol] 44.9 fL 35.1-43.9 [facility] Work Phone: Erythrocyte distribution width (RBC) [Ratio] 13.0 % 11.6-14.6 [facility] Work Phone: Immature granulocytes/100 WBC (Bld) 0.500 % 0.0-0.9 [facility] Work Phone: Comment on above: IG% - Immature Granu locytes (promyelocytes, myelocytes and metamyelocytes) > 1% indicates that a LEFT SHIFT is Present. MCH (RBC) [Entitic mass] 31.8 pg 27.0-32.0 [facility] Work Phone: Nucleated RBC/100 WBC (Bld) [Ratio] 0 % 0-5 [facility] Work Phone: MCHC Auto (RBC) [Mass/Vol]on 11-14-2021 MCHC (RBC) [Mass/Vol] 33.9 g/dL 32-36 [facility] Work Phone: No Panel Informationon 11-14 Estimated Creatinine Clearance Calc 39.70 ml/min [facility] Work Phone: Estimated GFR (MDRD) Amer 117 mL/min >60 [facility] Work Phone: Comment on above: GFR Calc Estimated GFR (MDRD) Non-Af Amer 97 mL/min >60 [facility] Work Phone: Comment on above: Non- GFR Calc Thyroid Stimulating Hormone (TSH) 4.31 uIU/mL 0.358-3.74 [facility] Work Phone: Platelets bldon 11-14-2021 Platelets (Bld) [#/Vol] 255 10*3/uL 150-450 [facility] Work Phone: Serum or plasma albumin amandeep urement (mass/volume)on 11-14-2021 Albumin [Mass/Vol] 2.9 g/dL 3.2-5.0 [facility] Work Phone: Serum or plasma albumin/glob ulin mass ratioon 11-14-2021 Albumin/Globulin [Mass ratio] 0.9 {ratio} 0.9-2.4 [facility] Work Phone: Serum or plasma calcium amandeep urement (mass/volume)on 11-14-2021 Calcium [Mass/Vol] 8.5 mg/dL 8.5-10.1 [facility] Work Phone: Serum or plasma creatinine m easurement (mass/volume)on 11-14-2021 Creatinine [Mass/Vol] 0.63 mg/dL 0.55-1.02 [facility] Work Phone: Comment on above: The validity of the calculated GFR & GFRAA in patients over 70 years has not been determined. Clinical correlation is essential. Serum or plasma urea nitroge n measurement (mass/volume)on 11-14-2021 Urea nitrogen [Mass/Vol] 12 mg/dL 7-18 [facility] Work Phone: Thin prep Papanicolaou smear with manual screeningon 11-14-2021 Thin prep Papanicolaou smear with manual screening 24 U/L 15-37 [facility] Work Phone: Thin prep Papanicolaou smear with manual screening 4 5-15 [facility] Work Phone: Whole blood hemoglobin A1c/t otal hemoglobin ratio (mass fraction)on 11-14-2021 HbA1c (Bld) [Mass fraction] 5.5 % 3.8-5.6 [facility] Work Phone: Comment on above: Normal < 5.7 % Predi abetic 5.7 - 6.4 % Diabetic >or= 6.5 % Please note range changes. Basophil percentageon 2021 Basophil percentage 0 SEEN /hpf 0-5 [facility] Work Phone: Bilirubin Test strip Ql (U)o n 11-13-2021 Bilirubin Ql (U) Negative Negative [facility] Work Phone: CNPLisy 11-13-2021 [place] Telephone ([id number]) ----- MARIA ESTHER FINNEY ([id number]) 1940 F Date Time Provider Department 11/13/21 MURALI MADDOX During your visit today, we recorded the following information about you: Anais Martínez 11/13/2021 10:23 AM Signed Maria Esther Finney's daughter Marlen called. She called to cancel her mother's [...] she is recovered and ready to proceed. Allergies As of Date: 11/13/2021 (No Known Allergies) Date Reviewed: 02/10/2021 Reviewed by: Vicky Martinez MA - Fully Assessed Reason for Visit: Appointment Cancelled [1023] Prescriptions as of 11/13/2021 - gabapentin (NEURONTIN) 100 mg capsule Take 100 mg by mouth three times daily. - omeprazole (PRILOSEC) 40 mg capsule Take 40 mg by mouth once daily. - cyanocobalamin (VITAMIN B-12) 1,000 mcg tab Take 1,000 mcg by mouth once daily. - apixaban (ELIQUIS) 2.5 mg tab tab(s) Take 2.5 mg by mouth twice daily. - furosemide (LASIX) 20 mg tablet Take 20 mg by mouth once daily. - acetaminophen (TYLENOL) 325 mg tablet Take 650 mg by mouth every 6 hours as needed. - multivitamin tablet Take 1 tablet by mouth once daily. - ibuprofen (MOTRIN IB) 200 mg tablet Take 600 mg by mouth every 6 hours as needed (pt states she takes it once every other day). - polyethylene glycol 3350 (MIRALAX) 17 gram/dose powder Take 17 g by mouth as needed (maybe once every other month). - amLODIPine (NORVASC) 10 mg tablet Take [...] 20 mg by mouth once daily. - lansoprazole (PREVACID) 30 mg capsule Take 30 mg by mouth once daily. - Aspirin 81 mg Tab Take 81 mg by mouth. - levothyroxine (SYNTHROID) 112 mcg tablet Take 137 mcg by mouth once daily. Problem List As Of Date 11/13/2021 Noted Resolved Acute appendicitis without mention of peritonit*01/21/2012 Pre-operative cardiovascular examination, new E*01/26/2012 Bilateral inguinal hernia (BIH) [K40.20] 01/26/2012 Acute appendicitis with generalized peritonitis*01/26/2012 Umbilical hernia without mention of obstruction*06/03/2012 Obesity, Class I, BMI 30-34.9 [E66.9] 02/16/2018 Hiatal hernia [K44.9] 03/01/2018 05/27/2018 Gastroesophageal reflux disease without esophag*03/01/2018 GERD (gastroesophageal reflux disease) [K21.9] 05/26/2018 Encounter Status:Closed by ANAIS MARTÍNEZ on 11/13/21 [facility] Ketones Test strip Ql (U)on 11-13-2021 Ketones Ql (U) Negative Negative [facility] Work Phone: Mucus LM Ql (Urine sed)on Mucus Ql (Urine sed) 0 SEEN /hpf [facility] Work Phone: Nitrite Test strip Ql (U)on 11-13-2021 Nitrite Ql (U) Negative Negative [facility] Work Phone: No Panel Informationon 11-13 Troponin I High Sensitivity 7 pg/mL 3.0-54.0 [facility] Work Phone: Comment on above: Please Note: New Pamela t Units and Gender Specific Reference Ranges. For more information see Policy Stat Procedure Lyman High Sensitivity Troponin (TNIH) and attachments. Protein Test strip Ql (U)on 11-13-2021 Protein Ql (U) 30 mg/dl Negative [facility] Work Phone: Squamous epithelial cells de tection in urine sediment by light microscopyon 11-13-2021 Epithelial cells.squamous LM Ql (Urine sed) 0-5 SEEN /hpf 5-10 [facility] Work Phone: Urine blood detectionon 10-31 RBC Ql (U) Negative Negative [facility] Work Phone: RBC Ql (U) 0 SEEN /hpf 0-5 [facility] Work Phone: Urine clarityon 11-13-2021 Clarity (U) Clear Clear [facility] Work Phone: Urine color determinationon 11-13-2021 Color (U) Yellow Yellow [facility] Work Phone: Urine glucose detectionon Glucose Ql (U) Normal mg/dl Normal [facility] Work Phone: Urine leukocyte esterase det ection by dipstickon 11-13-2021 Leukocyte esterase Test strip Ql (U) Negative Negative [facility] Work Phone: Urine pHon 11-13-2021 pH (U) 8.0 [pH] 5.0 - 8.0 [facility] Work Phone: Urine sediment bacteria coun t by microscopy (number/high power field)on 11-13-2021 Bacteria LM.HPF (Urine sed) [#/Area] RARE /hpf None Seen [facility] Work Phone: Urine specific gravity measu rementon 11-13-2021 Specific gravity (U) [Rel density] 1.010 1.002-1.03 0 [facility] Work Phone: Urobilinogen Auto test strip Ql (U)on 11-13-2021 Urobilinogen Ql (U) Normal mg/dl Normal [facility] Work Phone: Absolute lymphocyte counton 11-11-2021 Lymphocytes Auto (Unsp spec) [#/Vol] 2.61 10*3/uL 0.83-4.51 [facility] Work Phone: Basophil percentageon 2021 Basophils/100 WBC (Bld) 0.4 % 0-1 [facility] Work Phone: Bilirubin [Mass/Vol] 0.60 mg/dL 0.20-1.00 [facility] Work Phone: Comment on above: For patients on eltr ombopag therapy, use of Dimension Lyman TBIL is not recommended. Chloride [Moles/Vol] 96 mmol/L 98-107 [facility] Work Phone: Eosinophils/100 WBC (Bld) 0.5 % 0-5 [facility] Work Phone: Glucose [Mass/Vol] 97 mg/dL 74-106 [facility] Work Phone: Neutrophils (Bld) [#/Vol] 5.7 10*3/uL 2.0-7.7 [facility] Work Phone: Neutrophils/100 WBC (Bld) 61.9 % 47-70 [facility] Work Phone: Potassium [Moles/Vol] 4.4 mmol/L 3.5-5.1 [facility] Work Phone: Protein [Mass/Vol] 7.3 g/dL 6.4-8.2 [facility] Work Phone: Sodium [Moles/Vol] 131 mmol/L 136-145 [facility] Work Phone: WBC (Bld) [#/Vol] 9.2 10*3/uL 4.4-11.0 [facility] Work Phone: Blood erythrocytes count (nu mber/volume)on 11-11-2021 RBC (Bld) [#/Vol] 4.06 10*6/uL 4.2-5.4 [facility] Work Phone: Blood hemoglobin measurement (mass/volume)on 11-11-2021 Hemoglobin (Bld) [Mass/Vol] 12.7 g/dL 12.0-15.0 [facility] Work Phone: Blood lymphocytes/100 leukoc yteson 11-11-2021 Lymphocytes/100 WBC (Bld) 28.4 % 19-41 [facility] Work Phone: Blood monocytes/100 leukocyt eson 11-11-2021 Monocytes/100 WBC (Bld) 8.5 % 0-10 [facility] Work Phone: Blood platelet mean volumeon 11-11-2021 Platelet mean volume (Bld) [Entitic vol] 9.6 fL 6.2-12.0 [facility] Work Phone: Determination of erythrocyte mean corpuscular volume (MCV)on 11-11-2021 MCV (RBC) [Entitic vol] 94.3 fL 81-99 [facility] Work Phone: Hematocrit Auto (Bld) [Volum e fraction]on 11-11-2021 Hematocrit (Bld) [Volume fraction] 38.3 % 37-47 [facility] Work Phone: Laboratory - Chemistry and C hemistry - challengeon 11-11-2021 ALP [Catalytic activity/Vol] 103 U/L 45-117 [facility] Work Phone: ALT [Catalytic activity/Vol] 28 U/L 13-56 [facility] Work Phone: CO2 [Moles/Vol] 31.0 mmol/L 21.0-32.0 [facility] Work Phone: Cobalamin (Vitamin B12) [Mass/Vol] 1799 pg/mL 211-911 [facility] Work Phone: Free T4 [Mass/Vol] 1.23 ng/dL 0.76-1.46 [facility] Work Phone: Globulin (S) [Mass/Vol] 3.6 g/dL 2.2-4.2 [facility] Work Phone: Urea nitrogen/Creatinine [Mass ratio] 18.8 mg/mg 10-20 [facility] Work Phone: Laboratory - Hematology and Cell countson 11-11-2021 Erythrocyte distribution width (RBC) [Entitic vol] 43.8 fL 35.1-43.9 [facility] Work Phone: Erythrocyte distribution width (RBC) [Ratio] 12.7 % 11.6-14.6 [facility] Work Phone: Immature granulocytes/100 WBC (Bld) 0.300 % 0.0-0.9 [facility] Work Phone: Comment on above: IG% - Immature Granu locytes (promyelocytes, myelocytes and metamyelocytes) > 1% indicates that a LEFT SHIFT is Present. MCH (RBC) [Entitic mass] 31.3 pg 27.0-32.0 [facility] Work Phone: Nucleated RBC/100 WBC (Bld) [Ratio] 0 % 0-5 [facility] Work Phone: MCHC Auto (RBC) [Mass/Vol]on 11-11-2021 MCHC (RBC) [Mass/Vol] 33.2 g/dL 32-36 [facility] Work Phone: No Panel Informationon 11-11 Estimated GFR (MDRD) Amer 115 mL/min >60 [facility] Work Phone: Comment on above: GFR Calc Estimated GFR (MDRD) Non-Af Amer 95 mL/min >60 [facility] Work Phone: Comment on above: Non- GFR Calc Thyroid Stimulating Hormone (TSH) 9.79 uIU/mL 0.358-3.74 [facility] Work Phone: Platelets bldon 11-11-2021 Platelets (Bld) [#/Vol] 331 10*3/uL 150-450 [facility] Work Phone: Serum or plasma albumin amandeep urement (mass/volume)on 11-11-2021 Albumin [Mass/Vol] 3.7 g/dL 3.2-5.0 [facility] Work Phone: Serum or plasma albumin/glob ulin mass ratioon 11-11-2021 Albumin/Globulin [Mass ratio] 1.0 {ratio} 0.9-2.4 [facility] Work Phone: Serum or plasma calcium amandeep urement (mass/volume)on 11-11-2021 Calcium [Mass/Vol] 8.7 mg/dL 8.5-10.1 [facility] Work Phone: Serum or plasma creatinine m easurement (mass/volume)on 11-11-2021 Creatinine [Mass/Vol] 0.64 mg/dL 0.55-1.02 [facility] Work Phone: Comment on above: The validity of the calculated GFR & GFRAA in patients over 70 years has not been determined. Clinical correlation is essential. Serum or plasma urea nitroge n measurement (mass/volume)on 11-11-2021 Urea nitrogen [Mass/Vol] 12 mg/dL 7-18 [facility] Work Phone: Thin prep Papanicolaou smear with manual screeningon 11-11-2021 Thin prep Papanicolaou smear with manual screening 23 U/L 15-37 [facility] Work Phone: Thin prep Papanicolaou smear with manual screening 4 5-15 [facility] Work Phone: Absolute lymphocyte counton 08-28-2021 Lymphocytes Auto (Unsp spec) [#/Vol] 2.70 10*3/uL 0.83-4.51 [facility] Work Phone: Basophil percentageon 2021 Basophils/100 WBC (Bld) 0.5 % 0-1 [facility] Work Phone: Chloride [Moles/Vol] 101 mmol/L 98-107 [facility] Work Phone: Eosinophils/100 WBC (Bld) 1.2 % 0-5 [facility] Work Phone: Glucose [Mass/Vol] 102 mg/dL 74-106 [facility] Work Phone: Comment on above: Fasting Glucose resu lt from 100 to 125 mg/dL suggests IMPAIRED HOMEOSTASIS per A.D.A. criteria. Neutrophils (Bld) [#/Vol] 6.3 10*3/uL 2.0-7.7 [facility] Work Phone: Neutrophils/100 WBC (Bld) 63.5 % 47-70 [facility] Work Phone: Potassium [Moles/Vol] 4.0 mmol/L 3.5-5.1 [facility] Work Phone: Sodium [Moles/Vol] 133 mmol/L 136-145 [facility] Work Phone: WBC (Bld) [#/Vol] 10.0 10*3/uL 4.4-11.0 [facility] Work Phone: Blood erythrocytes count (nu mber/volume)on 08-28-2021 RBC (Bld) [#/Vol] 4.24 10*6/uL 4.2-5.4 [facility] Work Phone: Blood hemoglobin measurement (mass/volume)on 08-28-2021 Hemoglobin (Bld) [Mass/Vol] 13.1 g/dL 12.0-15.0 [facility] Work Phone: Blood lymphocytes/100 leukoc yteson 08-28-2021 Lymphocytes/100 WBC (Bld) 27.1 % 19-41 [facility] Work Phone: Blood monocytes/100 leukocyt eson 08-28-2021 Monocytes/100 WBC (Bld) 7.4 % 0-10 [facility] Work Phone: Blood platelet mean volumeon 08-28-2021 Platelet mean volume (Bld) [Entitic vol] 9.7 fL 6.2-12.0 [facility] Work Phone: Determination of erythrocyte mean corpuscular volume (MCV)on 08-28-2021 MCV (RBC) [Entitic vol] 94.1 fL 81-99 [facility] Work Phone: Hematocrit Auto (Bld) [Volum e fraction]on 08-28-2021 Hematocrit (Bld) [Volume fraction] 39.9 % 37-47 [facility] Work Phone: Laboratory - Chemistry and C hemistry - challengeon 08-28-2021 CO2 [Moles/Vol] 28.0 mmol/L 21.0-32.0 [facility] Work Phone: Urea nitrogen/Creatinine [Mass ratio] 29.1 mg/mg 10-20 [facility] Work Phone: Laboratory - Hematology and Cell countson 08-28-2021 Erythrocyte distribution width (RBC) [Entitic vol] 44.2 fL 35.1-43.9 [facility] Work Phone: Erythrocyte distribution width (RBC) [Ratio] 12.9 % 11.6-14.6 [facility] Work Phone: Immature granulocytes/100 WBC (Bld) 0.300 % 0.0-0.9 [facility] Work Phone: Comment on above: IG% - Immature Granu locytes (promyelocytes, myelocytes and metamyelocytes) > 1% indicates that a LEFT SHIFT is Present. MCH (RBC) [Entitic mass] 30.9 pg 27.0-32.0 [facility] Work Phone: Nucleated RBC/100 WBC (Bld) [Ratio] 0 % 0-5 [facility] Work Phone: MCHC Auto (RBC) [Mass/Vol]on 08-28-2021 MCHC (RBC) [Mass/Vol] 32.8 g/dL 32-36 [facility] Work Phone: No Panel Informationon 08-28 Estimated GFR (MDRD) Amer 100 mL/min >60 [facility] Work Phone: Comment on above: GFR Calc Estimated GFR (MDRD) Non-Af Amer 82 mL/min >60 [facility] Work Phone: Comment on above: Non- GFR Calc Thyroid Stimulating Hormone (TSH) 3.90 uIU/mL 0.358-3.74 [facility] Work Phone: Platelets bldon 08-28-2021 Platelets (Bld) [#/Vol] 278 10*3/uL 150-450 [facility] Work Phone: Serum or plasma calcium amandeep urement (mass/volume)on 08-28-2021 Calcium [Mass/Vol] 8.8 mg/dL 8.5-10.1 [facility] Work Phone: Serum or plasma creatinine m easurement (mass/volume)on 08-28-2021 Creatinine [Mass/Vol] 0.72 mg/dL 0.55-1.02 [facility] Work Phone: Comment on above: The validity of the calculated GFR & GFRAA in patients over 70 years has not been determined. Clinical correlation is essential. Serum or plasma urea nitroge n measurement (mass/volume)on 08-28-2021 Urea nitrogen [Mass/Vol] 21 mg/dL 7-18 [facility] Work Phone: Thin prep Papanicolaou smear with manual screeningon 08-28-2021 Thin prep Papanicolaou smear with manual screening 4 5-15 [facility] Work Phone: Laboratory - Chemistry and C hemistry - challengeon 07-23-2021 Glucose [Mass/Vol] 108 mg/dL 70-110 [facility] Work Phone: CNPLisy 02-11-2021 [facility] Telephone (AGGENS3) ----- MARIA ESTHER FINNEY ([id number]) 1940 F Date Time Provider Department 02/11/21 MURALI MADDOX During your visit today, we recorded the following information about you: Josiah Deleon RN 02/11/2021 11:18 AM Signed Marlen called and said that she and her mother got to talking after the office appointment yesterday. Marlen said Maria Esther is recuperating from her rotator cuff surgery but the surgeon said she should get her full mobility back by May. She is still doing daily exercises, some with a 1 lb. Weight. Mom mentions that she can feel it in her groin when she does the exercises. Patient's daughter wants to know if Marlen will need to discontinue the shoulder exercises, especially the over the head exercises, while she recuperates from the hernia surgery? They are wondering if they should delay the hernia repair until after May? I told Marlen I would pass these questions on to Dr. Maddox and we will get back to them. Josiah Maddox MD 02/11/2021 2:23 PM Signed The timing of the surgery can be completely up to her. She would have to put off a little bit of the rehab for a few weeks after surgery but probably not a whole lot since she is not lifting a whole lot Anais Martínez 02/11/2021 4:25 PM Signed Maria Esther's daughter called back. They have decided to postpone surgery until 05/08/2021 at 0800am Allergies As of Date: 02/11/2021 (No Known Allergies) Date Reviewed: 02/10/2021 Reviewed by: Vicky Martinez MA - Fully Assessed Reason for Visit: Patient Question [[id number]] Prescriptions as of 02/11/2021 - gabapentin (NEURONTIN) 100 mg capsule Take 100 mg by mouth three times daily. - omeprazole (PRILOSEC) 40 mg capsule Take 40 mg by mouth once daily. - cyanocobalamin (VITAMIN B-12) 1,000 mcg tab Take 1,000 mcg by mouth once daily. - apixaban (ELIQUIS) 2.5 mg tab tab(s) Take 2.5 mg by mouth twice daily. - furosemide (LASIX) 20 mg tablet Take 20 mg by mouth once daily. - acetaminophen (TYLENOL) 325 mg tablet Take 650 mg by mouth every 6 hours as needed. - multivitamin tablet Take 1 tablet by mouth once daily. - ibuprofen (MOTRIN IB) 200 mg tablet Take 600 mg by mouth every 6 hours as needed (pt states she takes it once every other day). - polyethylene glycol 3350 (MIRALAX) 17 gram/dose powder Take 17 g by mouth as needed (maybe once every other month). - amLODIPine (NORVASC) 10 mg tablet Take [...] 20 mg by mouth once daily. - lansoprazole (PREVACID) 30 mg capsule Take 30 mg by mouth once daily. - Aspirin 81 mg Tab Take 81 mg by mouth. - levothyroxine (SYNTHROID) 112 mcg tablet Take 137 mcg by mouth once daily. Problem List As Of Date 02/11/2021 Noted Resolved Acute appendicitis without mention of peritonit*01/21/2012 Pre-operative cardiovascular examination, new E*01/26/2012 Bilateral inguinal hernia (BIH) [K40.20] 01/26/2012 Acute appendicitis with generalized peritonitis*01/26/2012 Umbilical hernia without mention of obstruction*06/03/2012 Obesity, Class I, BMI 30-34.9 [E66.9] 02/16/2018 Hiatal hernia [K44.9] 03/01/2018 05/27/2018 Gastroesophageal reflux disease without esophag*03/01/2018 GERD (gastroesophageal reflux disease) [K21.9] 05/26/2018 Encounter Status:Closed by JOSIAH DELEON on 02/11/21 [facility] Emily 02-10-2021 OV Office Visit (AGGENS 3) ----- MARIA ESTHER FINNEY ([id number]) 1940 F Date Time Provider Department 02/10/21 1:30 PM MURALI MADDOX AGGENS3 During your visit today, we recorded the following information about you: Pulse Respiration Blood pressure Weight 66/minute 18/minute 123/67 72.6 kg Height 1.524 m Murali Maddox MD 02/10/2021 1:28 PM Signed Thank you for coming to see me today. It is my pleasure to take care of you. If you have any questions regarding your visit, please don't hesitate to contact us. Murali Maddox MD 02/11/2021 3:30 PM Signed Mari aEsther Finney is a 80 year old female who [...] which included preparing to see the patient, [id number] patient care, completing clinical documentation, performing a medically appropriate examination, counseling and educating the patient/family/caregiver, ordering medications, tests, or procedures, communicating with other HCPs (not separately reported), communicating results to the patient/family/caregiver and care coordination (not separately reported). Murali Maddox M.D., F.A.C.S. Referring Provider: MELY EPPERSON [[id number]] Allergies As of Date: 02/10/2021 (No Known Allergies) Date Reviewed: 02/10/2021 Reviewed by: Vicky Martinez MA - Full (more content not included)... Normal [facility] CT ABD/PEL W IVCONon 021 CT ABD/PEL W IVCON * * *Final Report* * * DATE OF EXAM: Jan 28 2021 2:37PM [facility] 0530 - CT ABD/PEL W IVCON / PROCEDURE REASON: multiple diagnoses * * * * Physician Interpretation * * * * EXAMINATION: CT ABDOMEN AND PELVIS WITH IV CONTRAST CLINICAL HISTORY: Ventral hernia without obstruction or gangrene LLQ pain F/U hernia, hx of hernia repair, appy TECHNIQUE: CT of the abdomen and pelvis was performed using standard technique, scanning from just above the dome of the diaphragm to the symphysis pubis. MQ: CTAP_3 Contrast: IV: 100 ml of Omnipaque 300 Oral: 900 ml of 50ML Omnipaque [address] Radiation dose: Integrated Dose-length product (DLP) for this visit = 593.79 mGy*cm. CT Dose Reduction Employed: Automated exposure control(AEC) and iterative recon COMPARISON: None. RESULT: Liver: Enhancing nodule measuring 8 mm right lobe of the liver segment 8 as seen on 2:28. Otherwise no focal lesions. Biliary: No bile duct dilation. Small gallstones layering in the gallbladder. Spleen: No mass. No splenomegaly. Pancreas: No mass or duct dilation. Adrenals: Slight nodularity left adrenal gland. 10 mm hypodense nodule posterior medial limb on 2:27. Second nodule seen posterior medial limb measuring 9 mm on 2:32. Right adrenal gland unremarkable. Kidneys: Right: Parenchymal scarring. Cluster cysts lateral midpole measuring 3.0 and 2.6 cm. Mild dilatation of the right ureter down to the level of the urinary bladder. Left: No left-sided hydronephrosis. Cyst noted in the lower pole. 4.0 cm in diameter and 3.5 cm in diameter. Smaller indeterminate hypodensities in the upper pole. GI tract: Prominent hiatal hernia. Deformity at the GE junction possibly due to prior fundoplication. No dilated small or large bowel. Lymph nodes: No abdominal or pelvic lymphadenopathy. Mesentery/Peritoneum: No ascites or mass. Retroperitoneum: No mass. Vasculature: The celiac axis and SMA are patent. The portal vein and branches, splenic vein, SMV, and hepatic veins are patent. Pelvis: No mass, ascites or fluid collection. Status post hysterectomy. Status post possible hernia repair with surgical markers in the soft tissues just above the pubic symphysis. Findings suggest small direct inguinal hernia with fatty contents as seen on 3:132 through 134. Bones/Soft Tissues: Chronic compression deformities of T12, superior endplate of L1, and superior endplate of L3. No significant compromise of the central canal or neural foramina No acute findings radiographically. Lower thorax: Cardiomegaly with enlarged right side of the heart particularly right atrium. Trace bilateral pleural effusions. Typesetter Apprentice (topogram) images: No significant additional findings. IMPRESSION: 1. Small direct inguinal hernia on the left. 2.Prior hysterectomy. 3.Cardiomegaly. 4.Cholelithiasis. 5. Large sliding-type hiatal hernia. Question whether patient has had prior fundoplication. 6. Multiple chronic compression deformities in the lumbar spine. Water Taxi Operator: ALLEN Transcribe Date/Time: Jan 30 2021 3:49P Dictated by : GEORGIA WOO MD This examination was interpreted and the report reviewed and electronically signed by: GEORGIA WOO MD on Jan 30 2021 4:01PM EST [id number] Normal [facility] CNOVon 01-13-2021 CNOV Office Visit (AGGENS 3) ----- MARIA ESTHER FINNEY ([id number]) 1940 F Date Time Provider Department 01/13/21 1:30 PM MURALI MADDOX AGGENS3 During your visit today, we recorded the following information about you: Blood pressure Weight Height 136/77 72.6 kg 1.524 m Murali Maddox MD 01/13/2021 1:47 PM Signed Thank you for coming to see me today. It is my pleasure to take care of you. If you have any questions regarding your visit, please don't hesitate to contact us. Murali Maddox MD 01/13/2021 2:24 PM Signed Maria Esther Finney is a 80 year old female who [...] without obstruction or gangrene (primary encounter diagnosis) [facility] pain Plan: ASSESSMENT/PLAN: 1. Ventral hernia without [...] which included preparing to see the patient, [id number] patient care, completing clinical documentation, performing a medically appropriate examination, counseling and educating the patient/family/caregiver, ordering medications, tests, or procedures and communicating wit (more content not included)... Normal [facility] CREATININE BLDon 01-13-2021 Creatinine [Mass/Vol] 0.69 mg/dL Normal 0.58-0.96 [facility] Comment on above: Order Comment: Speci men Type: BLOOD SPECIMEN Performed By: #### C RET1 ####[facility] LABORATORYCLIA [id number] [address] STATES OF [facility] GFR/1.73 sq M.predicted MDRD (S/P/Bld) [Vol rate/Area] mL/min/{1.73_m2} Normal [facility] Comment on above: Order Comment: Speci men Type: BLOOD SPECIMEN Result Comment: >60 eGFR (Estimated GFR) Units of measure: mL/min/1.73 meters squared eGFR is derived from the reexpressed MDRD Study equation using the following parameters: serum creatinine, age, gender and race. The creatinine assay has been calibrated to be traceable to IDMS. An eGFR <60 mL/min/1.73m2 for >3 months is consistent with chronic kidney disease. Refer to KDOQI guidelines for clinical interpretation. In patients with unstable renal function, e.g. those with acute kidney injury, the eGFR may not accurately reflect actual GFR. Performed By: #### C RET1 ####[facility]ORATORYCLIA [id number] [address] [place] CNOVon 11-25-2020 CNOV Office Visit (AGGENS 3) ----- MARIA ESTHER FINNEY ([id number]) 1940 F Date Time Provider Department 11/25/20 1:45 PM MURALI MADDOXENS3 During your visit today, we recorded the following information about you: Pulse Respiration Blood pressure Weight 77/minute 20/minute 142/86 72.6 kg Height 1.524 m Murali Maddox MD 11/25/2020 2:38 PM Signed Thank you for coming to see me today. It is my pleasure to take care of you. If you have any questions regarding your visit, please don't hesitate to contact us. Murali Maddox MD 11/26/2020 9:06 AM Signed Maria Esther Burgospenelope is a 80 year old female who [...] which included preparing to see the patient, [id number] patient care, completing clinical documentation, performing a medically appropriate examination and counseling and educating the patient/family/caregiver. Murali Maddox M.D., F.A.C.S. Referring Provider: MELY EPPERSON [[id number]] Allergies As of Date: 11/25/2020 (No Known Allergies) Date Reviewed: 11/25/2020 Reviewed by: Vicky Martinez MA - Fully Assessed Reason for Visit: Established Patient [175] Cmt: HBC LEFT SIDED PAIN; CONCERNED FOR REHERNIATION Primary Visit Diagnosis:Gastroesophagea l reflux disease without esophagitis [K21.9] Other Visit Diagnosis:Atrial fibrillation, unspecified type (HCC) [I48.91] Prescriptions as of 11/26/2020 - omeprazole (PRILOSEC) 40 mg capsule Take 40 mg by mouth once daily. - cyanocobalamin (VITAMIN B-12) 1,000 mcg tab Take 1,000 mcg by mouth once daily. - apixaban (ELIQUIS) 2.5 mg tab tab(s) Take 2.5 mg by mouth twice daily. - furosemide (LASIX) 20 mg tablet Take 20 mg by mouth once daily. - acetaminophen (TYLENOL) 325 mg tablet Take 650 mg by mouth every 6 hours as needed. - multivitamin tablet Take 1 tablet by mouth once daily. - ibupr (more content not included)... Normal [facility] 2019 Novel Coronavirus (COVI D-19), RICKIE ([id number])Ordered By: Excelsior Picker on 03-19-2020 2019 Novel Coronavirus (COVID-19), RICKIE ([id number]) Not Detected Normal [facility]; [facility] Work Phone: Comment on above: This nucleic acid am plification test was developed and its performancecharacteristics determined by [employer]. Nucleic acidamplification tests include PCR and TMA. This test has not been FDAcleared or approved. This test has been authorized by FDA under anEmergency Use Authorization (EUA). This test is only authorized forthe duration of time the declaration that circumstances existjustifying the authorization of the emergency use of in vitrodiagnostic tests for detection of SARS-CoV-2 virus and/or diagnosisof COVID-19 infection under section 564(b)(1) of the Act, 21 U.S.C.360bbb-3(b) (1), unless the authorization is terminated or revokedsooner.When diagnostic testing is negative, the possibility of a falsenegative result should be considered in the context of a patient'srecent exposures and the presence of clinical signs and symptomsconsistent with COVID-19. An individual without symptoms of COVID-19and who is not shedding SARS-CoV-2 virus would expect to have anegative (not detected) result in this assay. PERFORMED BY: [id number] [facility] [id number] Basic Panelon 05-27-2018 Creatinine mass conc 0.77 mg/dL Normal 0.51-0.95 [facility] Comment on above: Performed By: #### P 8 #### [facility] [address] [place] [address] Anion gap molar conc 12 mmol/L Normal 8-16 [facility] Comment on above: Performed By: #### P 8 #### [facility] [address] [place] [address] CO2 molar conc 24 mmol/L Normal 21-32 [facility] Comment on above: Performed By: #### P 8 #### [facility] [address] [place] [address] Urea nitrogen mass conc 12 mg/dL Normal 7-18 [facility] Comment on above: Performed By: #### P 8 #### [facility] [address] [place] [address] Calcium mass conc 7.8 mg/dL Low 8.5-10.1 [facility] Comment on above: Performed By: #### P 8 #### [facility] [address] [place] [address] Glucose mass conc 120 mg/dL High 70-99 [facility] Comment on above: Performed By: #### P 8 #### [facility] [address] [place] [address] Chloride molar conc 105 mmol/L Normal 98-107 [facility] Comment on above: Performed By: #### P 8 #### [facility] [address] [place] [address] Potassium molar conc 3.7 mmol/L Normal 3.5-5.1 [facility] Comment on above: Performed By: #### P 8 #### [facility] [address] [place] [address] Sodium molar conc 137 mmol/L Normal 136-145 [facility] Comment on above: Performed By: #### P 8 #### [facility] [address] [place] [address] Hemogramon 05-27-2018 Erythrocyte distribution width Ratio (RBC) 12.8 % Normal 11.7-14.4 [facility] Comment on above: Performed By: #### C BC1 #### [facility] [address] [place] [address] Hematocrit Volume Fraction (Bld) 38.2 % Normal 34.1-44.9 [facility] Comment on above: Performed By: #### C BC1 #### [facility] [address] [place] [address] Hemoglobin mass conc (Bld) 12.6 g/dL Normal 11.2-15.7 [facility] Comment on above: Performed By: #### C BC1 #### [facility] [address] [place] [address] MCH Entitic mass (RBC) 30.5 pg Normal 25.6-32.2 [facility] Comment on above: Performed By: #### C BC1 #### [facility] [address] [place] [address] MCHC mass conc (RBC) 33.0 % Normal 31.6-34.8 [facility] Comment on above: Performed By: #### C BC1 #### [facility] [address] [place] [address] MCV Entitic volume (RBC) 92.5 fL Normal 79.4-94.8 [facility] Comment on above: Performed By: #### C BC1 #### [facility] [address] [place] [address] Platelet mean volume Entitic volume (Bld) 10.1 fL Normal 9.4-12.3 [facility] Comment on above: Performed By: #### C BC1 #### [facility] [address] [place] [address] Platelets #/vol (Bld) 232 thou/cmm Normal 182-369 [facility] Comment on above: Performed By: #### C BC1 #### [facility] [address] [place] [id number] RBC #/vol (Bld) 4.13 mil/cmm Normal 3.93-5.22 [facility] Comment on above: Performed By: #### C BC1 #### [place] [address] RDW SD 43.4 fl Normal 36.4-46.3 [facility] Comment on above: Performed By: #### C BC1 #### [place] [address] WBC #/vol (Bld) 13.52 thou/cmm High 3.98-10.04 [facility] Comment on above: Performed By: #### C BC1 #### [place] [id number] MDRD GFRon 05-27-2018 GFR/1.73 sq M predicted among non-blacks MDRD vol rate/area (S/P/Bld) mL/min/{1.73_m2} Normal >60mL/min/ 1.73m2 [facility] Comment on above: Result Comment: If t he patient is , multiply the result by 1.210. Performed By: #### G FR #### [place] [address] CHEST 1 VIEWon 05-26-2018 CHEST 1 VIEW Performed at [facility] APPROVED BY: LANI RASHEED MD EXAMINATION: CHEST RADIOGRAPH (SINGLE VIEW AP OR PA) Clinical History: Post-operative / post-procedure assessment, asymptomatic M: XC1_4 Comparison: CT chest 02/22/2012 RESULT: Lines, tubes, and devices: None. Lungs and pleura: Patchy ill-defined airspace opacities at both lung bases is favored to represent atelectasis. Underlying infectious infiltrates are not excluded. Blunting of the left costophrenic angle may be due to infiltrate, atelectasis or small effusion. Cardiomediastinal silhouette: Large hiatal hernia is noted. Cardiac silhouette is not enlarged. IMPRESSION: 1. Large hiatal hernia. 2. Patchy ill-defined airspace opacities at both lung bases favored to represent atelectasis. Underlying infectious infiltrates are not excluded. 3. Blunting of the left costo phrenic angle could be due to atelectasis, infiltrate and/or small effusion. Normal [facility] Basic Panelon 05-19-2018 Creatinine mass conc 0.86 mg/dL Normal 0.51-0.95 [facility] Comment on above: Performed By: #### P 8 #### [facility] [address] [place] [address] Anion gap molar conc 11 mmol/L Normal 8-16 [facility] Comment on above: Performed By: #### P 8 #### [facility] [address] [place] [address] Calcium mass conc 8.7 mg/dL Normal 8.5-10.1 [facility] Comment on above: Performed By: #### P 8 #### [facility] [address] [place] [address] CO2 molar conc 29 mmol/L Normal 21-32 [facility] Comment on above: Performed By: #### P 8 #### [facility] [address] [place] [address] Glucose mass conc 97 mg/dL Normal 70-99 [facility] Comment on above: Performed By: #### P 8 #### [facility] [address] [place] [address] Urea nitrogen mass conc 17 mg/dL Normal 7-18 [facility] Comment on above: Performed By: #### P 8 #### [facility] [address] [place] [address] Chloride molar conc 102 mmol/L Normal 98-107 [facility] Comment on above: Performed By: #### P 8 #### [facility] [address] [place] [address] Potassium molar conc 4.6 mmol/L Normal 3.5-5.1 [facility] Comment on above: Performed By: #### P 8 #### [facility] [address] [place] [address] Sodium molar conc 137 mmol/L Normal 136-145 [facility] Comment on above: Performed By: #### P 8 #### [facility] [address] [place] [address] Hemogramon 05-19-2018 Erythrocyte distribution width Ratio (RBC) 12.6 % Normal 11.7-14.4 [facility] Comment on above: Performed By: #### C BC1 #### [facility] [address] [place] [address] Hematocrit Volume Fraction (Bld) 39.7 % Normal 34.1-44.9 [facility] Comment on above: Performed By: #### C BC1 #### [facility] [address] [place] [address] Hemoglobin mass conc (Bld) 12.9 g/dL Normal 11.2-15.7 [facility] Comment on above: Performed By: #### C BC1 #### [facility] [address] [place] [address] MCH Entitic mass (RBC) 30.1 pg Normal 25.6-32.2 [facility] Comment on above: Performed By: #### C BC1 #### [facility] [address] [place] [address] MCHC mass conc (RBC) 32.5 % Normal 31.6-34.8 [facility] Comment on above: Performed By: #### C BC1 #### [facility] [address] [place] [address] MCV Entitic volume (RBC) 92.8 fL Normal 79.4-94.8 [facility] Comment on above: Performed By: #### C BC1 #### [facility] [address] [place] [address] Platelet mean volume Entitic volume (Bld) 10.2 fL Normal 9.4-12.3 [facility] Comment on above: Performed By: #### C BC1 #### [facility] [address] [place] [address] Platelets #/vol (Bld) 266 thou/cmm Normal 182-369 [facility] Comment on above: Performed By: #### C BC1 #### [facility] [address] [place] [address] RBC #/vol (Bld) 4.28 mil/cmm Normal 3.93-5.22 [facility] Comment on above: Performed By: #### C BC1 #### [place] [address] RDW SD 43.1 fl Normal 36.4-46.3 [facility] Comment on above: Performed By: #### C BC1 #### [place] [address] WBC #/vol (Bld) 8.90 thou/cmm Normal 3.98-10.04 [facility] Comment on above: Performed By: #### C BC1 #### [place] [address] MDRD GFRon 05-19-2018 GFR/1.73 sq M predicted among non-blacks MDRD vol rate/area (S/P/Bld) mL/min/{1.73_m2} Normal >60mL/min/ 1.73m2 [facility] Comment on above: Result Comment: If t he patient is , multiply the result by 1.210. Performed By: #### G FR #### [place] [address] Type and Screenon 05-19-2018 ABO group Nom (Bld) O Normal [facility] Comment on above: Performed By: #### T &S #### [place] [address] Comment PAT specimen Normal [facility] Comment on above: Performed By: #### T &S #### [place] [address] RH Type Negative Normal [facility] Comment on above: Performed By: #### T &S #### [place] [address] Surgical Tissue Examon 02-16 Surgical Tissue Exam Test performed at [place] [address] NAME: MARIA ESTHER FINNEY REQUESTING: MURALI MADDOX M.D. FINAL DIAGNOSIS: A) GASTROESOPHAGEAL JUNCTION, BIOPSY - CHRONIC INFLAMMATION. SEE COMMENT. B) GASTRIC BODY, BIOPSY - CHRONIC GASTRITIS. IMMUNOHISTOCHEMICAL STAIN FOR HELICOBACTER PYLORI IS NEGATIVE FOR ORGANISMS. COMMENT: There is no evidence of intestinal metaplasia or dysplasia identified. OPERATIVE PROCEDURE: EGD CLINICAL INFORMATION: Hiatal hernia GROSS DESCRIPTION: A) GEJ bx Received in formalin labeled gastric esophageal junction biopsy is an irregular-shaped segment of chen-brown soft tissue measuring 0.3 x 0.1 x 0.1 cm. The specimen is totally submitted in one cassette. Levels x 2. B) Gastric body bx Received in formalin labeled gastric body biopsy are two segments of chen-brown soft tissue aggregating to 0.8 x 0.1 x 0.1 cm. The specimen is totally submitted in one cassette. Levels x 2. ARH:zelalem LEVY M.D., PATHOLOGIST (Electronic signature on file) Signed out: 2018 08:47 PRINTED: 2018 Page 1 of 1 Normal [facility] Comment on above: Performed By: #### S URG #### [place] [address] Lab Report: Lipid Profileon 03-05-2017 Cholesterol 132 mg/dL Invalid Interpretation Code 200 [facility] Work Phone: HDL Cholesterol 64 mg/dL Invalid Interpretation Code [facility] Work Phone: LDL Cholesterol 49 mg/dL Invalid Interpretation Code 0-130 [facility] Work Phone: Triglyceride 95 mg/dL Invalid Interpretation Code [facility] Work Phone: very low density lipoproteins 19 mg/dL Invalid Interpretation Code 5-40 [facility] Work Phone: Replaced Document: Liver Pro fileon 03-05-2017 Alanine aminotransferase (ALT) 17 U/L Invalid Interpretation Code 12-78 [facility] Work Phone: Albumin 3.7 g/dL Invalid Interpretation Code 3.4-5.0 [facility] Work Phone: Alkaline phosphatase (ALP) 61 U/L Invalid Interpretation Code 45-117 [facility] Work Phone: Aspartate aminotransferase (AST) 13 U/L Low 15-37 [facility] Work Phone: Bilirubin (direct) 0.18 mg/dL Invalid Interpretation Code 0.00-0.30 [facility] Work Phone: Bilirubin (total) 0.70 mg/dL Invalid Interpretation Code 0.20-1.00 [facility] Work Phone: Globulin 3.3 g/dL Invalid Interpretation Code 2.2-4.2 [facility] Work Phone: Protein 7.0 g/dL Invalid Interpretation Code 6.4-8.2 [facility] Phone: Office Visit: [facility] 09-17-19 17 Documentation of current medications (procedure) Done Invalid Interpretation Code [facility] Work Phone: Fall risk assessment Yes Invalid Interpretation Code [facility]. 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 Phone: Office Visiton 03-18-2016 Dietary management education, guidance, and counseling (procedure) yes Invalid Interpretation Code [facility] Phone: Office Visit: abnormal PFTon 01-10-2016 Tobacco use CPHS Never smoker Invalid Interpretation Code [facility]. Phone: Lab Report: BNP,B-Type NATRI URETIC PEPTIDEon 12-30-2015 BNP 157.0 pg/mL High 0-100 [facility] Work Phone: Lab Report: CBC W/Diff, Auto matedon 12-30-2015 Absolute Neut 4.6 X10 3/UL Invalid Interpretation Code 2.0-7.7 [facility] Work Phone: Basophils/100 WBC Auto (Bld) 0.3 % Invalid Interpretation Code 0-1 [facility] Work Phone: Eosinophils/100 leukocytes 1.4 % Invalid Interpretation Code 0-5 [facility] Work Phone: Erythrocyte distribution width Auto Ratio (RBC) 12.6 % Invalid Interpretation Code 11.6-14.6 [facility] Work Phone: Erythrocytes (RBC) 4.38 10*6/uL Invalid Interpretation Code 4.2-5.4 [facility] Work Phone: Hematocrit (HCT) 39.6 % Invalid Interpretation Code 37-47 [facility] Work Phone: Hemoglobin mass conc (Bld) 13.3 g/dL Invalid Interpretation Code 12.0-15.0 [facility] Work Phone: Immature granulocytes/100 WBC (Bld) 0.100 % Invalid Interpretation Code 0.0-0.9 [facility] Work Phone: Lymphocytes 2.36 X10 3/UL Invalid Interpretation Code 0.83-4.51 [facility] Work Phone: Lymphocytes/100 leukocytes 30.4 % Invalid Interpretation Code 19-41 [facility] Work Phone: MCH 30.4 pg Invalid Interpretation Code 27.0-32.0 [facility] Work Phone: MCHC mass conc (RBC) 33.6 G/GL Invalid Interpretation Code 32-36 [facility] Work Phone: MCV 90.4 fL Invalid Interpretation Code 81-99 [facility] Work Phone: Monocytes/100 leukocytes 8.4 % Invalid Interpretation Code 0-10 [facility] Work Phone: Neutrophils/100 WBC Auto (Bld) 59.4 % Invalid Interpretation Code 47-70 [facility] Work Phone: Platelets 251 10*3/mm3 Invalid Interpretation Code 150-450 [facility] Work Phone: PMV by Oneyda 10.4 fL Invalid Interpretation Code 6.2-12.0 [facility] Work Phone: RDW SD 41.5 fL Invalid Interpretation Code 35.1-43.9 [facility] Work Phone: WBC (Leukocytes) 7.8 10*3/uL Invalid Interpretation Code 4.4-11.0 [facility] Work Phone: Replaced Document: Lane Daigleon 10-30-2015 EKG QRS axis 18 deg Invalid Interpretation Code [facility] Work Phone: Interpretation Sinus Bradycardia Lo w voltage in limb leads. ABNORMAL Invalid Interpretation Code [facility] Work Phone: P Hoffman 63 deg Invalid Interpretation Code [facility] Work Phone: CA Interval 170 ms Invalid Interpretation Code [facility] Work Phone: Pulse (Heart Rate) 59 /min Invalid Interpretation Code [facility] Work Phone: QRS Duration 98 ms Invalid Interpretation Code [facility] Work Phone: QT Interval new path ms Invalid Interpretation Code [facility] Work Phone: QTc [place] 411 ms Invalid Interpretation Code [facility] Work Phone: T Hoffman -1 deg Invalid Interpretation Code [facility] Work Phone: Office Visit: [facility] 09-28-19 15 cardiac risk group C Invalid Interpretation Code [facility] Work Phone: General cardiovascular disease 10Y risk [#] [place].Alvino'Tomas N/A Invalid Interpretation Code [facility] Work Phone: [facility] Report[facility] Anion gap 3 mmol/L Low 5-15 [facility] Work Phone: BUN/Creatinine Ratio 12.2 RATIO Normal 10-[address] [facility] Work Phone: Calcium 8.6 mg/dL Normal 8.5-10.1 [facility] Work Phone: Chloride 104 mmol/L Normal 98-107 [facility] Work Phone: CO2 29.0 mmol/L Normal 21.0-32.0 [facility] Work Phone: Creatinine 0.9 mg/dL Normal 0.6-1.0 [facility] Work Phone: Glucose mass conc 94 mg/dL Normal 70-110 [facility] Work Phone: Potassium molar conc 4.0 mmol/L Normal 3.5-5.[address] [facility] Work Phone: Sodium 136 mmol/L Normal 136-145 [facility] Work Phone: Urea nitrogen 11 mg/dL Normal 7-18 [facility] Work Phone: Lab Report: BTNPon 4 BNP 170.1 pg/mL High 0-100 [facility] Work Phone: Replaced Document: Lane E CG Observationson 09-14-2013 Pulse (Heart Rate) 420 ms Invalid Interpretation Code [facility] Work Phone: Lab Report: PTon 02-02-2012 INR Coag RelTime (PPP) 1.0 {INR} Normal [facility] Work Phone: PTP 13.0 SECONDS Normal 11.9-14.4 [facility] Work Phone: Culture, urine Bacteria identified Cx Nom (U) Positive [facility] Work Phone: Bacteria identified Cx Nom (U) Enterococcus faecalis [facility] Work Phone: Vital Signs Date Time Vital Sign Value Performing Clinician Facility 10-22-2024 08:21-0400 Body temperature 97.8 [degF] Dr. Mely Epperson DO Work Phone: [facility] 10-22-2024 08:21-0400 Diastolic blood pressure 60 mm[Hg] Dr. Mely Epperson DO Work Phone: [facility] 10-22-2024 08:21-0400 Heart rate 57 /min Dr. Mely Epperson DO Work Phone: [facility] 10-22-2024 08:21-0400 Respiratory rate 16 /min Dr. Mely Epperson DO Work Phone: [facility] 10-22-2024 08:21-0400 SaO2% (BldA) [Mass fraction] 96 % Dr. Mely Epperson DO Work Phone: [facility] 10-22-2024 08:21-0400 Systolic blood pressure 118 mm[Hg] Dr. Mely Epperson DO Work Phone: [facility] 10-11-2024 13:06-0400 Body height 157.[address] Mely Epperson DO Work Phone: [facility] 10-11-2024 13:06-0400 Body mass index (BMI) [Ratio] 28.7 kg/m2 Dr. Mely Epperson DO Work Phone: [facility] 10-11-2024 13:06-0400 Body temperature 97.9 [degF] Dr. Mely Epperson DO Work Phone: [facility] 10-11-2024 13:06-0400 Body weight 71.[address] Mely Epperson DO Work Phone: [facility] 10-11-2024 13:06-0400 Diastolic blood pressure 76 mm[Hg] Dr. Mely Epperson DO Work Phone: [facility] 10-11-2024 13:06-0400 Heart rate 55 /min Dr. Mely Epperson DO Work Phone: [facility] 10-11-2024 13:06-0400 Respiratory rate 16 /min Dr. Mely Epperson DO Work Phone: [facility] 10-11-2024 13:06-0400 SaO2% (BldA) [Mass fraction] 99 % Dr. Mely Epperson DO Work Phone: [facility] 10-11-2024 13:06-0400 Systolic blood pressure 148 mm[Hg] Dr. Mely Epperson DO Work Phone: [facility] 09-20-2024 13:25-0400 Body height 157.[address] Mely Epperson DO Work Phone: [facility] 09-20-2024 13:25-0400 Body mass index (BMI) [Ratio] 28.7 kg/m2 Dr. Mely Epperson DO Work Phone: [facility] 09-20-2024 13:25-0400 Body weight 71.[address] Mely Epperson DO Work Phone: [facility] 09-20-2024 13:25-0400 Diastolic blood pressure 94 mm[Hg] Dr. Mely Epperson DO Work Phone: [facility] 09-20-2024 13:25-0400 Heart rate 63 /min Dr. Mely Epperson DO Work Phone: [facility] 09-20-2024 13:25-0400 Respiratory rate 18 /min Dr. Mely Epperson DO Work Phone: [facility] 09-20-2024 13:25-0400 SaO2% (BldA) [Mass fraction] 94 % Dr. Mely Epperson DO Work Phone: [facility] 09-20-2024 13:25-0400 Systolic blood pressure 191 mm[Hg] Dr. Mely Epperson DO Work Phone: [facility] 09-19-2024 19:18-0400 Body temperature 98 [degF] Dr. Mely Epperson DO Work Phone: [facility] 09-19-2024 19:18-0400 Diastolic blood pressure 99 mm[Hg] Dr. Mely Epperson DO Work Phone: [facility] 09-19-2024 19:18-0400 Heart rate 90 /min Dr. Mely Epperson DO Work Phone: [facility] 09-19-2024 19:18-0400 Respiratory rate 16 /min Dr. Mely Epperson DO Work Phone: [facility] 09-19-2024 19:18-0400 SaO2% (BldA) [Mass fraction] 99 % Dr. Mely Epperson DO Work Phone: [facility] 09-19-2024 19:18-0400 Systolic blood pressure 199 mm[Hg] Dr. Mely Epperson DO Work Phone: [facility] 09-19-2024 15:25-0400 Body mass index (BMI) [Ratio] 28.8 kg/m2 Dr. Mely Epperson DO Work Phone: [facility] 09-19-2024 15:25-0400 Body weight 71.[address] Mely Epperson DO Work Phone: [facility] 09-19-2024 15:22-0400 Body height 157.[address] Mely Epperson DO Work Phone: [facility] 09-19-2024 14:52-0400 Body temperature 98 [degF] Dr. Mely Epperson DO Work Phone: [facility] 09-19-2024 14:52-0400 Diastolic blood pressure 90 mm[Hg] Dr. Mely Epperson DO Work Phone: [facility] 09-19-2024 14:52-0400 Heart rate 62 /min Dr. Mely Epperson DO Work Phone: [facility] 09-19-2024 14:52-0400 Respiratory rate 0 /min Dr. Mely Epperson DO Work Phone: [facility] 09-19-2024 14:52-0400 SaO2% (BldA) [Mass fraction] 95 % Dr. Mely Epperson DO Work Phone: [facility] 09-19-2024 14:52-0400 Systolic blood pressure 182 mm[Hg] Dr. Mely Epperson DO Work Phone: [facility] 09-06-2024 13:56-0400 Body height 160.[address] Mely Epperson DO Work Phone: [facility] 09-06-2024 13:56-0400 Body mass index (BMI) [Ratio] 27.8 kg/m2 Dr. Mely Epperson DO Work Phone: [facility] 09-06-2024 13:56-0400 Body temperature 98.4 [degF] Dr. Mely Epperson DO Work Phone: [facility] 09-06-2024 13:56-0400 Body weight 71.[address] Mely Epperson DO Work Phone: [facility] 09-06-2024 13:56-0400 Diastolic blood pressure 72 mm[Hg] Dr. Mely Epperson DO Work Phone: [facility] 09-06-2024 13:56-0400 Heart rate 55 /min Dr. Mely Epperson DO Work Phone: [facility] 09-06-2024 13:56-0400 Respiratory rate 16 /min Dr. Mely Epperson DO Work Phone: [facility] 09-06-2024 13:56-0400 SaO2% (BldA) [Mass fraction] 96 % Dr. Mely Epperson DO Work Phone: [facility] 09-06-2024 13:56-0400 Systolic blood pressure 128 mm[Hg] Dr. Mely Epperson DO Work Phone: [facility] 08-02-2024 14:21-0400 Body mass index (BMI) [Ratio] 27.5 kg/m2 Dr. Mely Epperson DO Work Phone: [facility] 08-02-2024 14:21-0400 Body temperature 97.1 [degF] Dr. Mely Epperson DO Work Phone: [facility] 08-02-2024 14:21-0400 Body weight 70.[address] Mely Epperson DO Work Phone: [facility] 08-02-2024 14:21-0400 Diastolic blood pressure 76 mm[Hg] Dr. Mely Epperson DO Work Phone: [facility] 08-02-2024 14:21-0400 Heart rate 74 /min Dr. Mely Epperson DO Work Phone: [facility] 08-02-2024 14:21-0400 Respiratory rate 16 /min Dr. Mely Epperson DO Work Phone: [facility] 08-02-2024 14:21-0400 SaO2% (BldA) [Mass fraction] 92 % Dr. Mely Epperson DO Work Phone: [facility] 08-02-2024 14:21-0400 Systolic blood pressure 128 mm[Hg] Dr. Mely Epperson DO Work Phone: [facility] 06-28-2024 13:28-0500 Body mass index (BMI) [Ratio] 28.2 kg/m2 Dr. Mely Epperson DO Work Phone: [facility] 06-28-2024 13:28-0500 Body weight 72.[address] Mely Epperson DO Work Phone: [facility] 06-14-2024 13:29-0500 Body mass index (BMI) [Ratio] 28.1 kg/m2 Dr. Mely Epperson DO Work Phone: [facility] 06-14-2024 13:29-0500 Body temperature 96.6 [degF] Dr. Mely Epperson DO Work Phone: [facility] 06-14-2024 13:29-0500 Body weight 72.[address] Mely Epperson DO Work Phone: [facility] 06-14-2024 13:29-0500 Diastolic blood pressure 80 mm[Hg] Dr. Mely Epperson DO Work Phone: [facility] 06-14-2024 13:29-0500 Heart rate 70 /min Dr. Mely Epperson DO Work Phone: [facility] 06-14-2024 13:29-0500 Respiratory rate 16 /min Dr. Mely Epperson DO Work Phone: [facility] 06-14-2024 13:29-0500 SaO2% (BldA) [Mass fraction] 97 % Dr. Mely Epperson DO Work Phone: [facility] 06-14-2024 13:29-0500 Systolic blood pressure 120 mm[Hg] Dr. Mely Epperson DO Work Phone: [facility] 06-07-2023 13:28-0500 Body height 160.[address] Mely Epperson Work Phone: [facility] 06-07-2023 13:28-0500 Body mass index (BMI) [Ratio] 26.9 kg/m2 Dr. Mely Epperson Work Phone: [facility] 06-07-2023 13:28-0500 Body weight 68.[address] Mely Epperson Work Phone: [facility] 06-07-2023 13:28-0500 Diastolic blood pressure 83 mm[Hg] Dr. Mely Epperson Work Phone: [facility] 06-07-2023 13:28-0500 Heart rate 63 /min Dr. Mely Epperson Work Phone: [facility] 06-07-2023 13:28-0500 Respiratory rate 18 /min Dr. Mely Epperson Work Phone: [facility] 06-07-2023 13:28-0500 Systolic blood pressure 148 mm[Hg] Dr. Mely Epperson Work Phone: [facility] 05-14-2023 12:43-0500 Body temperature 98.2 [degF] Dr. Mely Epperson Work Phone: [facility] 05-14-2023 12:43-0500 Diastolic blood pressure 74 mm[Hg] Dr. Mely Epperson Work Phone: [facility] 05-14-2023 12:43-0500 Heart rate 84 /min Dr. Mely Epperson Work Phone: [facility] 05-14-2023 12:43-0500 Respiratory rate 18 /min Dr. Mely Epperson Work Phone: [facility] 05-14-2023 12:43-0500 SaO2% (BldA) [Mass fraction] 96 % Dr. Mely Epperson Work Phone: [facility] 05-14-2023 12:43-0500 Systolic blood pressure 154 mm[Hg] Dr. Mely Epperson Work Phone: [facility] 05-11-2023 10:24-0500 Body height 160.[address] Mely Epperson Work Phone: [facility] 05-11-2023 10:24-0500 Body mass index (BMI) [Ratio] 26.4 kg/m2 Dr. Mely Epperson Work Phone: [facility] 05-11-2023 10:24-0500 Body temperature 97.4 [degF] Dr. Mely Epperson Work Phone: [facility] 05-11-2023 10:24-0500 Body weight 67.[address] Mely Epperson Work Phone: [facility] 05-11-2023 10:24-0500 Diastolic blood pressure 62 mm[Hg] Dr. Mely Epperson Work Phone: [facility] 05-11-2023 10:24-0500 Heart rate 69 /min Dr. Mely Epperson Work Phone: [facility] 05-11-2023 10:24-0500 Respiratory rate 16 /min Dr. Mely Epperson Work Phone: [facility] 05-11-2023 10:24-0500 SaO2% (BldA) [Mass fraction] 99 % Dr. Mely Epperson Work Phone: [facility] 05-11-2023 10:24-0500 Systolic blood pressure 118 mm[Hg] Dr. Mely Epperson Work Phone: [facility] 04-24-2023 11:06-0500 Body temperature 98.6 [degF] Dr. Mely Epperson Work Phone: [facility] 04-24-2023 11:06-0500 Diastolic blood pressure 80 mm[Hg] Dr. Mely Epperson Work Phone: [facility] 04-24-2023 11:06-0500 Heart rate 74 /min Dr. Mely Epperson Work Phone: [facility] 04-24-2023 11:06-0500 Respiratory rate 12 /min Dr. Mely Epperson Work Phone: [facility] 04-24-2023 11:06-0500 SaO2% (BldA) [Mass fraction] 95 % Dr. Mely Epperson Work Phone: [facility] 04-24-2023 11:06-0500 Systolic blood pressure 132 mm[Hg] Dr. Mely Epperson Work Phone: [facility] 02-17-2023 13:29-0400 Body mass index (BMI) [Ratio] 26.5 kg/m2 Dr. Mely Epperson Work Phone: [facility] 02-17-2023 13:29-0400 Body temperature 97.5 [degF] Dr. Mely Epperson Work Phone: [facility] 02-17-2023 13:29-0400 Body weight 68.[address] Mely Epperson Work Phone: [facility] 02-17-2023 13:29-0400 Diastolic blood pressure 84 mm[Hg] Dr. Mely Epperson Work Phone: [facility] 02-17-2023 13:29-0400 Heart rate 68 /min Dr. Mely Epperson Work Phone: [facility] 02-17-2023 13:29-0400 Respiratory rate 14 /min Dr. Mely Epperson Work Phone: [facility] 02-17-2023 13:29-0400 SaO2% (BldA) [Mass fraction] 97 % Dr. Mely Epperson Work Phone: [facility] 02-17-2023 13:29-0400 Systolic blood pressure 160 mm[Hg] Dr. Mely Epperson Work Phone: [facility] 12-10-2022 13:29-0400 Body height 160.[address] Mely Epperson Work Phone: [facility] 12-10-2022 13:29-0400 Body mass index (BMI) [Ratio] 26.9 kg/m2 Dr. Mely Epperson Work Phone: [facility] 12-10-2022 13:29-0400 Body weight 68.[address] Mely Epperson Work Phone: [facility] 12-10-2022 13:29-0400 Diastolic blood pressure 86 mm[Hg] Dr. Mely Epperson Work Phone: [facility] 12-10-2022 13:29-0400 Heart rate 61 /min Dr. Mely Epperson Work Phone: [facility] 12-10-2022 13:29-0400 Respiratory rate 20 /min Dr. Mely Epperson Work Phone: [facility] 12-10-2022 13:29-0400 SaO2% (BldA) [Mass fraction] 95 % Dr. Mely Epperson Work Phone: [facility] 12-10-2022 13:29-0400 Systolic blood pressure 139 mm[Hg] Dr. Mely Epperson Work Phone: [facility] 11-11-2022 14:03-0400 Body height 160.[address] Mely Epperson Work Phone: [facility] 11-11-2022 14:03-0400 Body mass index (BMI) [Ratio] 27.3 kg/m2 Dr. Mely Epperson Work Phone: [facility] 11-11-2022 14:03-0400 Body temperature 98.8 [degF] Dr. Mely Epperson Work Phone: [facility] 11-11-2022 14:03-0400 Body weight 70.[address] Mely Epperson Work Phone: [facility] 11-11-2022 14:03-0400 Diastolic blood pressure 84 mm[Hg] Dr. Mely Epperson Work Phone: [facility] 11-11-2022 14:03-0400 Heart rate 88 /min Dr. Mely Epperson Work Phone: [facility] 11-11-2022 14:03-0400 Respiratory rate 16 /min Dr. Mely Epperson Work Phone: [facility] 11-11-2022 14:03-0400 SaO2% (BldA) [Mass fraction] 95 % Dr. Mely Epperson Work Phone: [facility] 11-11-2022 14:03-0400 Systolic blood pressure 138 mm[Hg] Dr. Mely Epperson Work Phone: [facility] 08-13-2022 13:36-0400 Body height 160.[address] Mely Epperson Work Phone: [facility] 08-13-2022 13:36-0400 Body mass index (BMI) [Ratio] 28.1 kg/m2 Dr. Mely Epperson Work Phone: [facility] 08-13-2022 13:36-0400 Body temperature 98.9 [degF] Dr. Mely Epperson Work Phone: [facility] 08-13-2022 13:36-0400 Body weight 72.[address] Mely Epperson Work Phone: [facility] 08-13-2022 13:36-0400 Diastolic blood pressure 82 mm[Hg] Dr. Mely Epperson Work Phone: [facility] 08-13-2022 13:36-0400 Heart rate 52 /min Dr. Mely Epperson Work Phone: [facility] 08-13-2022 13:36-0400 Respiratory rate 16 /min Dr. Mely Epperson Work Phone: [facility] 08-13-2022 13:36-0400 SaO2% (BldA) [Mass fraction] 96 % Dr. Mely Epperson Work Phone: [facility] 08-13-2022 13:36-0400 Systolic blood pressure 140 mm[Hg] Dr. Mely Epperson Work Phone: [facility] 07-30-2022 19:50-0400 Heart rate 103 /min Dr. Mely Epperson Work Phone: [facility] 07-30-2022 19:50-0400 Respiratory rate 20 /min Dr. Mely Epperson Work Phone: [facility] 07-30-2022 19:50-0400 SaO2% (BldA) [Mass fraction] 93 % Dr. Mely Epperson Work Phone: [facility] 07-30-2022 14:50-0400 Body height 160.[address] Mely Epperson Work Phone: [facility] 07-30-2022 14:50-0400 Body mass index (BMI) [Ratio] 27.6 kg/m2 Dr. Mely Epperson Work Phone: [facility] 07-30-2022 14:50-0400 Body temperature 100 [degF] Dr. Mely Epperson Work Phone: [facility] 07-30-2022 14:50-0400 Body weight 70.[address] Mely Epperson Work Phone: [facility] 07-30-2022 14:50-0400 Diastolic blood pressure 95 mm[Hg] Dr. Mely Epperson Work Phone: [facility] 07-30-2022 14:50-0400 Systolic blood pressure 164 mm[Hg] Dr. Mely Epperson Work Phone: [facility] 07-24-2022 08:51-0400 Diastolic blood pressure 104 mm[Hg] Dr. Mely Epperson Work Phone: [facility] 07-24-2022 08:51-0400 Heart rate 99 /min Dr. Mely Epperson Work Phone: [facility] 07-24-2022 08:51-0400 Respiratory rate 20 /min Dr. Mely Epperson Work Phone: [facility] 07-24-2022 08:51-0400 SaO2% (BldA) [Mass fraction] 95 % Dr. Mely Epperson Work Phone: [facility] 07-24-2022 08:51-0400 Systolic blood pressure 122 mm[Hg] Dr. Mely Epperson Work Phone: [facility] 07-24-2022 06:50-0400 Body height 160.[address] Mely Epperson Work Phone: [facility] 07-24-2022 06:50-0400 Body mass index (BMI) [Ratio] 27.6 kg/m2 Dr. Mely Epperson Work Phone: [facility] 07-24-2022 06:50-0400 Body temperature 97.4 [degF] Dr. Mely Epperson Work Phone: [facility] 07-24-2022 06:50-0400 Body weight 70.[address] Mely Epperson Work Phone: [facility] 07-23-2022 12:56-0400 Diastolic blood pressure 73 mm[Hg] Dr. Meyl Epperson Work Phone: [facility] 07-23-2022 12:56-0400 Heart rate 84 /min Dr. Mely Epperson Work Phone: [facility] 07-23-2022 12:56-0400 Respiratory rate 18 /min Dr. Mely Epperson Work Phone: [facility] 07-23-2022 12:56-0400 SaO2% (BldA) [Mass fraction] 97 % Dr. Mely Epperson Work Phone: [facility] 07-23-2022 12:56-0400 Systolic blood pressure 153 mm[Hg] Dr. Mely Epperson Work Phone: [facility] 07-23-2022 11:50-0400 Body temperature 97.9 [degF] Dr. Mely Epperson Work Phone: [facility] 07-23-2022 10:17-0400 Body height 160.[address] Mely Epperson Work Phone: [facility] 07-23-2022 10:17-0400 Body mass index (BMI) [Ratio] 27.6 kg/m2 Dr. Mely Epperson Work Phone: [facility] 07-23-2022 10:17-0400 Body weight 70.[address] Mely Epperson Work Phone: [facility] 07-21-2022 12:19-0400 Body temperature 99 [degF] Dr. Mely Epperson Work Phone: [facility] 07-21-2022 12:19-0400 Diastolic blood pressure 84 mm[Hg] Dr. Mely Epperson Work Phone: [facility] 07-21-2022 12:19-0400 Heart rate 81 /min Dr. Mely Epperson Work Phone: [facility] 07-21-2022 12:19-0400 Respiratory rate 18 /min Dr. Mely Epperson Work Phone: [facility] 07-21-2022 12:19-0400 SaO2% (BldA) [Mass fraction] 92 % Dr. Mely Epperson Work Phone: [facility] 07-21-2022 12:19-0400 Systolic blood pressure 156 mm[Hg] Dr. Mely Epperson Work Phone: [facility] 06-30-2022 16:24-0500 Body height 165.[address] Mely Epperson Work Phone: [facility] 06-30-2022 16:24-0500 Body mass index (BMI) [Ratio] 25.9 kg/m2 Dr. Mely Epperson Work Phone: [facility] 06-30-2022 16:24-0500 Body temperature 98.6 [degF] Dr. Mely Epperson Work Phone: [facility] 06-30-2022 16:24-0500 Body weight 70.[address] Mely Epperson Work Phone: [facility] 06-30-2022 16:24-0500 Diastolic blood pressure 84 mm[Hg] Dr. Mely Epperson Work Phone: [facility] 06-30-2022 16:24-0500 Heart rate 75 /min Dr. Mely Epperson Work Phone: [facility] 06-30-2022 16:24-0500 Respiratory rate 14 /min Dr. Mely Epperson Work Phone: [facility] 06-30-2022 16:24-0500 SaO2% (BldA) [Mass fraction] 98 % Dr. Mely Epperson Work Phone: [facility] 06-30-2022 16:24-0500 Systolic blood pressure 134 mm[Hg] Dr. Mely Epperson Work Phone: [facility] 05-14-2022 13:47-0500 Body height 165.[address] Mely Epperson Work Phone: [facility] 05-14-2022 13:47-0500 Body mass index (BMI) [Ratio] 25.9 kg/m2 Dr. Mely Epperson Work Phone: [facility] 05-14-2022 13:47-0500 Body weight 70.[address] Mely Epperson Work Phone: [facility] 05-14-2022 13:47-0500 Diastolic blood pressure 75 mm[Hg] Dr. Mely Epperson Work Phone: [facility] 05-14-2022 13:47-0500 Heart rate 62 /min Dr. Mely Epperson Work Phone: [facility] 05-14-2022 13:47-0500 Respiratory rate 18 /min Dr. Mely Epperson Work Phone: [facility] 05-14-2022 13:47-0500 SaO2% (BldA) [Mass fraction] 98 % Dr. Mely Epperson Work Phone: [facility] 05-14-2022 13:47-0500 Systolic blood pressure 135 mm[Hg] Dr. Mely Epperson Work Phone: [facility] 05-14-2022 08:57-0500 Body mass index (BMI) [Ratio] 26.1 kg/m2 Dr. Mely Epperson Work Phone: [facility] 05-14-2022 08:57-0500 Body temperature 98.5 [degF] Dr. Mely Epperson Work Phone: [facility] 05-14-2022 08:57-0500 Body weight 71.[address] Mely Epperson Work Phone: [facility] 05-14-2022 08:57-0500 Diastolic blood pressure 80 mm[Hg] Dr. Mely Epperson Work Phone: [facility] 05-14-2022 08:57-0500 Heart rate 55 /min Dr. Mely Epperson Work Phone: [facility] 05-14-2022 08:57-0500 Respiratory rate 16 /min Dr. Mely Epperson Work Phone: [facility] 05-14-2022 08:57-0500 SaO2% (BldA) [Mass fraction] 99 % Dr. Mely Epperson Work Phone: [facility] 05-14-2022 08:57-0500 Systolic blood pressure 150 mm[Hg] Dr. Mely Epperson Work Phone: [facility] 05-06-2022 13:00-0500 Body mass index (BMI) [Ratio] 26.1 kg/m2 Dr. Mely Epperson Work Phone: [facility] 05-06-2022 13:00-0500 Body temperature 98.7 [degF] Dr. Mely Epperson Work Phone: [facility] 05-06-2022 13:00-0500 Body weight 71.[address] Mely Epperson Work Phone: [facility] 05-06-2022 13:00-0500 Diastolic blood pressure 84 mm[Hg] Dr. Mely Epperson Work Phone: [facility] 05-06-2022 13:00-0500 Heart rate 65 /min Dr. Mely Epperson Work Phone: [facility] 05-06-2022 13:00-0500 Respiratory rate 14 /min Dr. Mely Epperson Work Phone: [facility] 05-06-2022 13:00-0500 SaO2% (BldA) [Mass fraction] 98 % Dr. Mely Epperson Work Phone: [facility] 05-06-2022 13:00-0500 Systolic blood pressure 138 mm[Hg] Dr. Mely Epperson Work Phone: [facility] 02-12-2022 14:43-0400 Body height 165.[address] Mely Epperson Work Phone: [facility] Work Phone: 02-12-2022 14:43-0400 Body mass index (BMI) [Ratio] 25.9 kg/m2 Dr. Mely Epperson Work Phone: [facility] 02-12-2022 14:43-0400 Body temperature 98.4 [degF] Dr. Mely Epperson Work Phone: [facility] 02-12-2022 14:43-0400 Body weight 70.[address] Mely Epperson Work Phone: [facility] 02-12-2022 14:43-0400 Diastolic blood pressure 70 mm[Hg] Dr. Mely Epperson Work Phone: [facility] 02-12-2022 14:43-0400 Heart rate 61 /min Dr. Mely Epperson Work Phone: [facility] 02-12-2022 14:43-0400 Respiratory rate 14 /min Dr. Mely Epperson Work Phone: [facility] 02-12-2022 14:43-0400 SaO2% (BldA) [Mass fraction] 99 % Dr. Mely Epperson Work Phone: [facility] 02-12-2022 14:43-0400 Systolic blood pressure 124 mm[Hg] Dr. Mely Epperson Work Phone: [facility] 01-21-2022 16:47-0400 Body height 165.[address] Mely Epperson Work Phone: [facility] Work Phone: 01-21-2022 16:47-0400 Body mass index (BMI) [Ratio] 26.6 kg/m2 Dr. Mely Epperson Work Phone: [facility] Work Phone: 01-21-2022 16:47-0400 Body temperature 98.2 [degF] Dr. Mely Epperson Work Phone: [facility] Work Phone: 01-21-2022 16:47-0400 Body weight 72.[address] Mely Epperson Work Phone: [facility] Work Phone: 01-21-2022 16:47-0400 Diastolic blood pressure 80 mm[Hg] Dr. Mely Epperson Work Phone: [facility] Work Phone: 01-21-2022 16:47-0400 Heart rate 86 /min Dr. Mely Epperson Work Phone: [facility] Work Phone: 01-21-2022 16:47-0400 Respiratory rate 14 /min Dr. Mely Epperson Work Phone: [facility] Work Phone: 01-21-2022 16:47-0400 SaO2% (BldA) [Mass fraction] 99 % Dr. Mely Epperson Work Phone: [facility] Work Phone: 09-21-2022 16:47-0400 Systolic blood pressure 138 mm[Hg] Dr. Mely Epperson Work Phone: [facility] Work Phone: 01-17-2022 17:15-0400 Diastolic blood pressure 84 mm[Hg] Dr. Mely Epperson Work Phone: [facility] Work Phone: 01-17-2022 17:15-0400 Heart rate 86 /min Dr. Mely Epperson Work Phone: [facility] Work Phone: 01-17-2022 17:15-0400 Respiratory rate 18 /min Dr. Mely Epperson Work Phone: [facility] Work Phone: 01-17-2022 17:15-0400 SaO2% (BldA) [Mass fraction] 95 % Dr. Mely Epperson Work Phone: [facility] Work Phone: 01-17-2022 17:15-0400 Systolic blood pressure 156 mm[Hg] Dr. Mely Epperson Work Phone: [facility] Work Phone: 01-17-2022 14:44-0400 Body height 165.[address] Mely Epperson Work Phone: [facility] Work Phone: 01-17-2022 14:44-0400 Body mass index (BMI) [Ratio] 26.6 kg/m2 Dr. Mely Epperson Work Phone: [facility] Work Phone: 01-17-2022 14:44-0400 Body temperature 98.3 [degF] Dr. Mely Epperson Work Phone: [facility] Work Phone: 01-17-2022 14:44-0400 Body weight 72.[address] Mely Epperson Work Phone: [facility] Work Phone: 12-03-2021 15:54-0400 Body height 165.[address] Mely Epperson Work Phone: [facility] Work Phone: 12-03-2021 15:54-0400 Body mass index (BMI) [Ratio] 27.3 kg/m2 Dr. Mely Epperson Work Phone: [facility] Work Phone: 12-03-2021 15:54-0400 Body temperature 97.4 [degF] Dr. Mely Epperson Work Phone: [facility] Work Phone: 12-03-2021 15:54-0400 Body weight 74.[address] Mely Epperson Work Phone: [facility] Work Phone: 12-03-2021 15:54-0400 Diastolic blood pressure 74 mm[Hg] Dr. Mely Epperson Work Phone: [facility] Work Phone: 12-03-2021 15:54-0400 Heart rate 73 /min Dr. Mely Epperson Work Phone: [facility] Work Phone: 12-03-2021 15:54-0400 Respiratory rate 16 /min Dr. Mely Epperson Work Phone: [facility] Work Phone: 12-03-2021 15:54-0400 SaO2% (BldA) [Mass fraction] 96 % Dr. Mely Epperson Work Phone: [facility] Work Phone: 12-03-2021 15:54-0400 Systolic blood pressure 142 mm[Hg] Dr. Mely Epperson Work Phone: [facility] Work Phone: 11-18-2021 13:01-0400 Body temperature 98.5 [degF] Dr. Mely Epperson Work Phone: [facility] Work Phone: 11-18-2021 13:01-0400 Diastolic blood pressure 77 mm[Hg] Dr. Mely Epperson Work Phone: [facility] Work Phone: 11-18-2021 13:01-0400 Heart rate 80 /min Dr. Mely Epperson Work Phone: [facility] Work Phone: 11-18-2021 13:01-0400 Respiratory rate 18 /min Dr. Mely Epperson Work Phone: [facility] Work Phone: 11-18-2021 13:01-0400 SaO2% (BldA) [Mass fraction] 96 % Dr. Mely Epperson Work Phone: [facility] Work Phone: 11-18-2021 13:01-0400 Systolic blood pressure 121 mm[Hg] Dr. Mely Epperson Work Phone: [facility] Work Phone: 11-18-2021 06:00-0400 Body weight [address] Mely Epperson Work Phone: [facility] Work Phone: 11-14-2021 20:41-0400 Inhaled oxygen flow rate 2 L/min Dr. Mely Epperson Work Phone: [facility] Work Phone: 11-14-2021 13:15-0400 Body height 165.[address] Mely Epperson Work Phone: [facility] Work Phone: 11-14-2021 13:15-0400 Body mass index (BMI) [Ratio] 26.4 kg/m2 Dr. Mely Epperson Work Phone: [facility] Work Phone: 11-14-2021 13:15-0400 Body weight 72.[address] Mely Epperson Work Phone: [facility] Work Phone: 11-14-2021 09:54-0400 Body temperature 98.6 [degF] Dr. Mely Epperson Work Phone: [facility] Work Phone: 11-14-2021 09:54-0400 Diastolic blood pressure 78 mm[Hg] Dr. Mely Epperson Work Phone: [facility] Work Phone: 11-14-2021 09:54-0400 Heart rate 77 /min Dr. Mely Epperson Work Phone: [facility] Work Phone: 11-14-2021 09:54-0400 Respiratory rate 18 /min Dr. Mely Epperson Work Phone: [facility] Work Phone: 11-14-2021 09:54-0400 SaO2% (BldA) [Mass fraction] 94 % Dr. Mely Epperson Work Phone: [facility] Work Phone: 11-14-2021 09:54-0400 Systolic blood pressure 132 mm[Hg] Dr. Mely Epperson Work Phone: [facility] Work Phone: 11-13-2021 08:04-0400 Inhaled oxygen flow rate 2 L/min Dr. Mely Epperson Work Phone: [facility] Work Phone: 11-11-2021 14:08-0400 Body mass index (BMI) [Ratio] 28.1 kg/m2 Dr. Mely Epperson Work Phone: [facility] Work Phone: 11-11-2021 14:08-0400 Body temperature 97.3 [degF] Dr. Mely Epperson Work Phone: [facility] Work Phone: 11-11-2021 14:08-0400 Body weight 72.[address] Mely Epperson Work Phone: [facility] Work Phone: 11-11-2021 14:08-0400 Diastolic blood pressure 82 mm[Hg] Dr. Mely Epperson Work Phone: [facility] Work Phone: 11-11-2021 14:08-0400 Heart rate 80 /min Dr. Mely Epperson Work Phone: [facility] Work Phone: 11-11-2021 14:08-0400 Respiratory rate 14 /min Dr. Mely Epperson Work Phone: [facility] Work Phone: 11-11-2021 14:08-0400 SaO2% (BldA) [Mass fraction] 97 % Dr. Mely Epperson Work Phone: [facility] Work Phone: 11-11-2021 14:08-0400 Systolic blood pressure 164 mm[Hg] Dr. Mely Epperson Work Phone: [facility] Work Phone: 11-06-2021 14:05-0400 Body mass index (BMI) [Ratio] 28 kg/m2 Dr. Mely Epperson Work Phone: [facility] Work Phone: 11-06-2021 14:05-0400 Body weight 71.[address] Mely Epperson Work Phone: [facility] Work Phone: 11-06-2021 14:05-0400 Diastolic blood pressure 75 mm[Hg] Dr. Mely Epperson Work Phone: [facility] Work Phone: 11-06-2021 14:05-0400 Heart rate 63 /min Dr. Mely Epperson Work Phone: [facility] Work Phone: 11-06-2021 14:05-0400 Respiratory rate 16 /min Dr. Mely Epperson Work Phone: [facility] Work Phone: 11-06-2021 14:05-0400 Systolic blood pressure 143 mm[Hg] Dr. Mely Epperson Work Phone: [facility] Work Phone: 08-28-2021 13:07-0400 Body mass index (BMI) [Ratio] 28 kg/m2 Dr. Mely Eppesron Work Phone: [facility] Work Phone: 08-28-2021 13:07-0400 Body temperature 98.3 [degF] Dr. Mely Epperson Work Phone: [facility] Work Phone: 08-28-2021 13:07-0400 Body weight 71.[address] Mely Epperson Work Phone: [facility] Work Phone: 08-28-2021 13:07-0400 Diastolic blood pressure 70 mm[Hg] Dr. Mely Epperson Work Phone: [facility] Work Phone: 08-28-2021 13:07-0400 Heart rate 84 /min Dr. Mely Epperson Work Phone: [facility] Work Phone: 08-28-2021 13:07-0400 Respiratory rate 18 /min Dr. Mely Epperson Work Phone: [facility] Work Phone: 08-28-2021 13:07-0400 SaO2% (BldA) [Mass fraction] 96 % Dr. Mely Epperson Work Phone: [facility] Work Phone: 08-28-2021 13:07-0400 Systolic blood pressure 130 mm[Hg] Dr. Mely Epperson Work Phone: [facility] Work Phone: 08-28-2021 13:07-0400 Body height 160.[address] Mely Epperson Work Phone: [facility] Work Phone: 08-28-2021 13:07-0400 Body mass index (BMI) [Ratio] 28 kg/m2 Dr. Mely Epperson Work Phone: [facility] Work Phone: 08-28-2021 13:07-0400 Body temperature 98.3 [degF] Dr. Mely Epperson Work Phone: [facility] Work Phone: 08-28-2021 13:07-0400 Body weight 71.[address] Mely Epperson Work Phone: [facility] Work Phone: 08-28-2021 13:07-0400 Diastolic blood pressure 70 mm[Hg] Dr. Mely Epperson Work Phone: [facility] Work Phone: 08-28-2021 13:07-0400 Heart rate 84 /min Dr. Mely Epperson Work Phone: [facility] Work Phone: 08-28-2021 13:07-0400 Respiratory rate 18 /min Dr. Mely Epperson Work Phone: [facility] Work Phone: 08-28-2021 13:07-0400 SaO2% (BldA) [Mass fraction] 96 % Dr. Mely Epperson Work Phone: [facility] Work Phone: 08-28-2021 13:07-0400 Systolic blood pressure 130 mm[Hg] Dr. Mely Epperson Work Phone: [facility] Work Phone: 08-06-2021 15:45-0400 Body mass index (BMI) [Ratio] 28.1 kg/m2 Dr. Mely Epperson Work Phone: [facility] Work Phone: 08-06-2021 15:45-0400 Body temperature 98 [degF] Dr. Mely Epperson Work Phone: [facility] Work Phone: 08-06-2021 15:45-0400 Body weight 72.[address] Mely Epperson Work Phone: [facility] Work Phone: 08-06-2021 15:45-0400 Diastolic blood pressure 76 mm[Hg] Dr. Mely Epperson Work Phone: [facility] Work Phone: 08-06-2021 15:45-0400 Heart rate 82 /min Dr. Mely Epperson Work Phone: [facility] Work Phone: 08-06-2021 15:45-0400 Respiratory rate 14 /min Dr. Mely Epperson Work Phone: [facility] Work Phone: 08-06-2021 15:45-0400 SaO2% (BldA) [Mass fraction] 95 % Dr. Mely Epperson Work Phone: [facility] Work Phone: 08-06-2021 15:45-0400 Systolic blood pressure 140 mm[Hg] Dr. Mely Epperson Work Phone: [facility] Work Phone: 08-06-2021 15:45-0400 Body mass index (BMI) [Ratio] 28.1 kg/m2 Dr. Mely Epperson Work Phone: [facility] Work Phone: 08-06-2021 15:45-0400 Body temperature 98 [degF] Dr. Mely Epperson Work Phone: [facility] Work Phone: 08-06-2021 15:45-0400 Body weight 72.[address] Mely Epperson Work Phone: [facility] Work Phone: 08-06-2021 15:45-0400 Diastolic blood pressure 76 mm[Hg] Dr. Mely Epperson Work Phone: [facility] Work Phone: 08-06-2021 15:45-0400 Heart rate 82 /min Dr. Mely Epperson Work Phone: [facility] Work Phone: 08-06-2021 15:45-0400 Respiratory rate 14 /min Dr. Mely Epperson Work Phone: [facility] Work Phone: 08-06-2021 15:45-0400 SaO2% (BldA) [Mass fraction] 95 % Dr. Mely Epperson Work Phone: [facility] Work Phone: 08-06-2021 15:45-0400 Systolic blood pressure 140 mm[Hg] Dr. Mely Epperson Work Phone: [facility] Work Phone: 07-23-2021 14:09-0400 Body mass index (BMI) [Ratio] 28.5 kg/m2 Dr. Mely Epperson Work Phone: [facility] Work Phone: 07-23-2021 14:09-0400 Body temperature 97.4 [degF] Dr. Mely Epperson Work Phone: [facility] Work Phone: 07-23-2021 14:09-0400 Body weight 73.[address] Mely Epperson Work Phone: [facility] Work Phone: 07-23-2021 14:09-0400 Diastolic blood pressure 86 mm[Hg] Dr. Mely Epperson Work Phone: [facility] Work Phone: 07-23-2021 14:09-0400 Heart rate 66 /min Dr. Mely Epperson Work Phone: [facility] Work Phone: 07-23-2021 14:09-0400 Respiratory rate 16 /min Dr. Mely Epperson Work Phone: [facility] Work Phone: 07-23-2021 14:09-0400 SaO2% (BldA) [Mass fraction] 98 % Dr. Mely Epperson Work Phone: [facility] Work Phone: 07-23-2021 14:09-0400 Systolic blood pressure 138 mm[Hg] Dr. Mely Epperson Work Phone: [facility] Work Phone: 07-23-2021 14:09-0400 Body mass index (BMI) [Ratio] 28.5 kg/m2 Dr. Mely Epperson Work Phone: [facility] Work Phone: 07-23-2021 14:09-0400 Body temperature 97.4 [degF] Dr. Mely Epperson Work Phone: [facility] Work Phone: 07-23-2021 14:09-0400 Body weight 73.[address] Mely Epperson Work Phone: [facility] Work Phone: 07-23-2021 14:09-0400 Diastolic blood pressure 86 mm[Hg] Dr. Mely Epperson Work Phone: [facility] Work Phone: 07-23-2021 14:09-0400 Heart rate 66 /min Dr. Mely Epperson Work Phone: [facility] Work Phone: 07-23-2021 14:09-0400 Respiratory rate 16 /min Dr. Mely Epperson Work Phone: [facility] Work Phone: 07-23-2021 14:09-0400 SaO2% (BldA) [Mass fraction] 98 % Dr. Mely Epperson Work Phone: [facility] Work Phone: 07-23-2021 14:09-0400 Systolic blood pressure 138 mm[Hg] Dr. Mely Epperson Work Phone: [facility] Work Phone: 09-16-2016 11:31-0400 BMI (Body Mass Index) 28.4 kg/m2 Faith Baumann PA-C [facility] Work Phone: 09-16-2016 11:31-0400 BP Diastolic 62 mm[Hg] Faith Baumann PA-C [facility] Work Phone: 09-16-2016 11:31-0400 BP Systolic 112 mm[Hg] Faith Baumann PA-C [facility] Work Phone: 09-16-2016 11:31-0400 Pulse (Heart Rate) 66 /min Faith Baumann PA-C [facility] Work Phone: 09-16-2016 11:31-0400 Weight 79.83 kg Faith Baumann PA-C [facility] Work Phone: 03-18-2016 15:50-0500 BSA (Body Surface Area) 1.87 m2 Faith Baumann PA-C [facility] Work Phone: 03-18-2016 15:50-0500 Respiratory Rate 16 /min Faith Baumann PA-C [facility] Work Phone: 01-10-2016 13:48-0400 Body Temperature 98.78 [degF] Faith Baumann PA-C [facility] Work Phone: 01-10-2016 13:48-0400 Body Temperature 98.8 [degF] Faith Baumann PA-C [facility] Work Phone: 01-10-2016 [id number] Height 167.64 cm Faith Baumann PA-C [facility] Work Phone: 01-10-2016 [id number] Weight 77.73 kg Faith Baumann PA-C [facility] Work Phone: Encounters Encounter Date Encounter Type Care Provider Facility Start: 10-23-2024 End: 10-23-[address] Mely Epperson DO Work Phone: -Laboratory Specimen Start: 10-23-2024 End: 10-23-2024 Patient encounter procedure Raul Durham [employer] -Laboratory Specimen Work Phone: Start: 10-22-2024 End: 10-22-2024 Patient encounter procedure Raul Durham [facility] -[facility] Work Phone: Start: 10-22-2024 End: 10-23-[address] Mely Epperson DO Work Phone: [facility] Work Phone: Start: 10-11-2024 End: 10-11-[address] Mely Mg DO -[facility] Work Phone: Start: 10-11-2024 End: 10-11-[address] Mely Epperson DO Work Phone: [facility] Work Phone: Start: 10-11-2024 End: 10-11-2024 ambulatory Mely Epperson Facility:[facility] Start: 09-20-2024 End: 09-20-[address] Chad Tony MD -[facility] Work Phone: Start: 09-20-2024 End: 09-20-[address] Mely Epperson DO Work Phone: [facility] Work Phone: Start: 09-19-2024 End: 09-19-2024 Emergency department patient visit Dr. Mely Epperson DO Work Phone: -Emergency Department Work Phone: Start: 09-19-2024 End: 09-19-2024 Patient encounter procedure Long LUQUE -[facility] Work Phone: Start: 09-19-2024 End: 09-19-[address] Mely Epperson DO Work Phone: [facility] Work Phone: Start: 09-19-2024 End: 09-19-2024 ambulatory Long LUQUE Facility:[facility] Start: 09-06-2024 End: 09-06-2024 Patient encounter procedure Jeff LUQUE -[facility] Work Phone: Start: 09-06-2024 End: 09-06-2024 ambulatory Mely Epperson Facility:[facility] Start: 08-24-2024 End: 08-24-[address] Mely Mg DO -[facility] Work Phone: Start: 08-24-2024 End: 08-24-2024 ambulatory Mely Epperson Facility:[facility] Start: 08-02-2024 End: 08-02-[address] Mely Mg DO -[facility] Work Phone: Start: 08-02-2024 End: 08-02-2024 ambulatory Mely Epperson Facility:[facility] Start: 06-28-2024 End: 06-28-[address] Mark London DO -[facility] Work Phone: Start: 06-28-2024 End: 06-28-2024 ambulatory Mely Epperson Facility:[facility] Start: 06-14-2024 End: 06-14-[address] Mely Mg DO -[facility] Work Phone: Start: 06-14-2024 End: 06-14-2024 ambulatory Mely Epperson Facility:[facility] Start: 06-14-2024 End: 06-14-2024 ambulatory Mely Epperson Facility:[facility] Start: 05-08-2024 End: 05-08-2024 ambulatory Mely Epperson Facility:[facility] Start: 05-06-2024 End: 05-06-2024 ambulatory Mely Epperson Facility:[facility] Start: 05-01-2024 End: 05-01-2024 ambulatory Mely Epperson Facility:[facility] Start: 03-26-2024 End: 03-26-2024 ambulatory Raul Durham NP Facility:[facility] Start: 03-21-2024 End: 03-21-2024 ambulatory Mely Epperson Facility:[facility] Start: 03-01-2024 End: 03-01-2024 ambulatory Mely Epperson Facility:[facility] Start: 03-01-2024 End: 03-01-2024 ambulatory Arlenemacey Schumacherhunter Facility:[facility] Start: 02-09-2024 End: 02-09-2024 ambulatory Mely Epperson Facility:[facility] Start: 02-09-2024 End: 02-09-2024 ambulatory Mely Epperson Facility:[facility] Start: 01-31-2024 End: 01-31-2024 ambulatory Mely Epperson Facility:[facility] Start: 01-20-2024 ambulatory Mely Epperson Facilit y:[facility] Start: 12-26-2023 Encounter for preprocedural laboratory examination Arlene Monereyda [facility] Start: 12-01-2023 End: 12-01-2023 ambulatory Arlene Huff Facility:[facility] Start: 06-08-2023 End: 06-08-[address] Mely Epperson Work Phone: [facility] Work Phone: Start: 06-08-2023 End: 06-08-[address] Mely Epperson Work Phone: [facility]-Laboratory Work Phone: Start: 06-07-2023 End: 06-07-[address] Mely Epperson Work Phone: [facility] Work Phone: Start: 05-24-2023 End: 05-24-[address] Mely Epperson Work Phone: [facility] Work Phone: Start: 05-24-2023 End: 05-24-[address] Mely Epperson Work Phone: [facility]-Ultrasound, [facility] Work Phone: Start: 05-14-2023 End: 05-14-[address] Mely Epperson Work Phone: [facility] Work Phone: Start: 05-11-2023 End: 05-11-[address] Mely Epperson Work Phone: [facility] Work Phone: Start: 04-24-2023 End: 04-24-[address] Mely Epperson Work Phone: [facility] Work Phone: Start: 02-17-2023 End: 02-17-[address] Mely Epperson Work Phone: [facility] Work Phone: Start: 01-06-2023 End: 01-06-[address] Mely Epperson Work Phone: [facility] Work Phone: Start: 01-06-2023 End: 01-06-[address] Mely Epperson Work Phone: [facility]-Laboratory, Specimen Work Phone: Start: 12-10-2022 End: 12-10-[address] Mely Epperson Work Phone: [facility] Work Phone: Start: 11-11-2022 End: 11-11-[address] Mely Epperson Work Phone: [facility] Work Phone: Start: 11-11-2022 End: 11-11-[address] Mely Epperson Work Phone: [facility] Work Phone: Start: 11-05-2022 End: 11-05-[address] Mely Epperson Work Phone: [facility] Work Phone: Start: 11-05-2022 End: 11-05-[address] Mely Epperson Work Phone: [facility] Work Phone: Start: 08-13-2022 End: 08-13-[address] Mely Epperson Work Phone: [facility] Work Phone: Start: 07-30-2022 End: 07-30-2022 Emergency department patient visit Dr. Mely Epperson Work Phone: [facility]-Emergency Department Start: 07-24-2022 End: 07-24-2022 Emergency department patient visit Dr. Mely Epperson Work Phone: [facility]-Emergency Department Start: 07-23-2022 End: 07-23-2022 Emergency department patient visit Dr. Mely Epperson Work Phone: [facility]-Emergency Department Start: 07-21-2022 End: 07-21-[address] Mely Epperson Work Phone: [facility] Start: 06-30-2022 End: 06-30-[address] Mely Epperson Work Phone: [facility] Work Phone: Start: 06-30-2022 End: 06-30-[address] Mely Epperson Work Phone: [facility] Internal Medicine Start: 05-20-2022 End: 05-20-[address] Mely Epperson Work Phone: [facility] Work Phone: Start: 05-20-2022 End: 05-20-[address] Mely Epperson Work Phone: [facility]-Laboratory Start: 05-14-2022 End: 05-14-[address] Mely Epperson Work Phone: [facility] Start: 05-14-2022 End: 05-14-[address] Mely Epperson Work Phone: [facility] Internal [facility] Start: 05-06-2022 End: 05-06-[address] Mely Epperson Work Phone: [facility] Internal [facility] Start: 02-26-2022 End: 02-26-[address] Mely Epperson Work Phone: [facility] Work Phone: Start: 02-26-2022 End: 02-26-[address] Mely Epperson Work Phone: [facility]-Laboratory, Specimen Start: 02-24-2022 End: 02-24-[address] Mely Epperson Work Phone: [facility] Work Phone: Start: 02-24-2022 End: 02-24-[address] Mely Epperson Work Phone: [facility]-Physical Therapy Start: 02-24-[address] Deandra Epperson Work Phone: [facility]-Physical Therapy Start: 02-17-[address] Deandra Epperson Work Phone: [facility]-Physical Therapy Start: 02-12-2022 End: 02-12-[address] Mely Epperson Work Phone: [facility] Work Phone: Start: 02-12-2022 End: 02-12-[address] Mely Epperson Work Phone: [facility] Internal Medicine Start: 01-22-[address] Deandra Epperson Work Phone: [facility]-Physical Therapy Start: 01-21-2022 End: 01-21-[address] Mely Epperson Work Phone: [facility] Work Phone: Start: 01-21-2022 End: 01-21-[address] [facility] Start: 01-21-2022 End: 01-21-[address] Mely Epperson Work Phone: [facility] Start: 01-17-2022 End: 01-17-2022 Emergency department patient visit Dr. Mely Epperson Work Phone: [facility]-Emergency Department Start: 01-15-[address] Deandra Epperson Work Phone: [facility]-Physical Therapy Start: 01-08-2022 End: 01-08-[address] Mely Epperson Work Phone: [facility] Work Phone: Start: 01-08-2022 End: 01-08-[address] Mely Epperson Work Phone: [facility]-Laboratory Start: 01-07-[address] Deandra Epperson Work Phone: [facility]-Physical Therapy Start: 12-08-2021 Non-patient / Non-visit Dr. Hawley Work Phone: [facility] Start: 12-08-2021 End: 12-08-[address] Mely Epperson Work Phone: [facility] Start: 12-03-2021 End: 12-03-[address] Mely Epperson Work Phone: [facility] Internal Medicine Start: 11-18-2021 Non-patient / Non-visit Dr. Hawley Work Phone: [facility] Start: 11-17-2021 Non-patient / Non-visit Dr. Hawley Work Phone: [facility] Start: 11-16-2021 Non-patient / Non-visit Dr. Hawley Work Phone: [facility] Start: 11-15-2021 Non-patient / Non-visit Dr. Hawley Work Phone: [facility] Start: 11-14-2021 Non-patient / Non-visit Dr. Hawley Work Phone: [facility] Start: 11-13-2021 Telephone encounter Murali Maddox MD Work Phone: [facility] Comment on above: Appointment Cancelle d Start: 11-13-[address] Alvino Epperson Work Phone: [facility] Start: 11-13-2021 Non-patient / Non-visit Dr. Hawley Work Phone: [facility] Start: 11-13-2021 End: 11-18-2021 Admission to same day surgery center Dr. Mely Epperson [facility] Start: 11-13-2021 End: 11-18-2021 Evaluation and management of inpatient Dr. Mely Epperson [facility] Start: 11-13-2021 Non-patient / Non-visit Dr. Hawley Work Phone: [facility] Start: 11-11-2021 End: 11-11-[address] Mely Epperson Work Phone: [facility] Start: 11-11-2021 End: 11-11-[address] Mely Epperson Work Phone: [facility] Internal Medicine Start: 11-06-2021 End: 11-06-[address] Mely Epperson Work Phone: [facility] Start: 08-28-2021 End: 08-28-[address] Mely Epperson Work Phone: [facility] Internal Medicine Start: 08-06-2021 End: 08-06-[address] Mely Epperson Work Phone: [facility] Internal Medicine Start: 07-23-2021 End: 07-23-[address] Mely Epperson Work Phone: [facility] Internal Medicine Start: 05-13-2020 End: 05-13-2020 Lab Order Lauren Fine [facility] Start: 03-19-2020 End: 03-18-2020 Lab Order Lauren Fine [facility] Start: 07-06-2018 End: 07-06-2018 Patient encounter procedure MURALI PONCERYAN Facility:[facility] Start: 06-08-2018 End: 06-08-2018 Patient encounter procedure MURALI MADODX Facility:[facility] Start: 05-26-2018 End: 05-27-2018 Evaluation and management of inpatient MURALI MADDOX Facility:[facility] Start: 05-19-2018 End: 05-20-2018 Patient encounter procedure MURALI MIKE Facility:[facility] Start: 02-28-2018 End: 02-28-2018 Patient encounter procedure MURALI MADDOX Facility:[facility] Start: 02-16-2018 End: 02-16-2018 Evaluation and management of inpatient MURALI MIKE Facility:[facility] Start: 12-27-2017 Patient encounter procedure MURALI MADDOX Facility:[facility] Start: 01-26-2012 EKG myocardial ischemia Vipin Maddox MD Work Phone: [facility] Work Phone: Procedures Date Procedure Procedure Detail Performing Clinician Start: 10-11-2024 Urnls dip stick/tabl et reagent auto microscopy Dr. Mely Epperson DO Work Phone: Start: 09-20-2024 Evaluation of diagno stic study results Dr. Mely Epperson DO Work Phone: Start: 09-19-[address] Deandra Epperson DO Work Phone: Start: 08-24-2024 XR knee, [address] Hawley DO Work Phone: Start: 06-14-2024 Urnls dip stick/tabl et reagent auto microscopy Dr. Mely Epperson DO Work Phone: Start: 06-14-2024 Measurement of renal function Dr. Mely Epperson DO Work Phone: Comment on above: GFR Calc Start: 05-24-2023 US scan of bladder Dr. Mely Epperson Work Phone: Start: 04-25-[address] Deandra Epperson Work Phone: Start: 11-05-2022 MRI of brain with contrast Dr. Mely Epperson Work Phone: Start: 07-30-2022 Plain chest X-ray Dr. Alvino Epperson Work Phone: Start: 07-24-2022 CT angiography of ch est with contrast Dr. Mely Epperson Work Phone: Start: 07-23-2022 SARS-CoV-2 & FLU Ant igen (Rapid) Dr. Mely Epperson Work Phone: Start: 07-23-2022 Plain chest X-ray Dr. Alvino Epperson Work Phone: Start: 07-21-2022 Plain chest X-ray Dr. Alvino Epperson Work Phone: Start: 06-30-2022 Plain chest X-ray Dr. Alvino Epperson Work Phone: Start: 01-17-2022 Plain x-ray of pelvi s and lower extremity Dr. Mely Epperson Work Phone: Start: 11-17-2021 MRI of lower limb wi th contrast Dr. Mely Epperson Work Phone: Start: 11-14-2021 Total replacement of hip Dr. Mely Epperson Work Phone: Start: 11-14-2021 Plain X-ray of hip Dr. Mely Epperson Work Phone: Start: 11-14-2021 Fluoroscopic guidance Alvino Epperson Work Phone: Start: 11-14-2021 Plain x-ray of pelvi s and lower extremity Dr. Mely Epperson Work Phone: Start: 11-13-2021 MRI of lower extremity Dr. Mely Epperson Work Phone: Start: 11-13-2021 MRI of brain with contrast Dr. Mely Epperson Work Phone: Start: 11-13-2021 Plain x-ray of pelvi s and lower extremity Dr. Mely Epperson Work Phone: Start: 11-13-2021 CT of head without contrast Dr. Mely Epperson Work Phone: Start: 11-13-2021 Plain chest X-ray Dr. Alvino Epperson Work Phone: Start: 05-19-2018 Antibody screen MURALI MADDOX Comment on above: Performed By: #### T &S #### [place] [id number] Start: 03-03-2017 End: 03-05-2017 *Hepatic Function Panel Faith renteria PA-C Work Phone: Start: 03-03-2017 End: 03-05-2017 Lipid 1996 panel - Serum or Plasma Faith Baumann PA-C Work Phone: Start: 09-16-2016 End: 09-16-2016 Follow Up Appt 6 months Faith renteria PA-C Work Phone: Start: 09-16-2016 End: 09-16-2016 PFM Faith Baumann PA-C Work Phone: Start: 08-25-2016 End: 08-31-2016 *Hepatic Function Panel Faith renteria PA-C Work Phone: Start: 08-25-2016 End: 08-31-2016 Lipid 1996 panel - Serum or Plasma Faith Baumann PA-C Work Phone: Start: 03-18-2016 End: 03-18-2016 Follow Up Appt 6 months George Malik MD Start: 03-18-2016 End: 03-18-2016 MMM George Malik MD Start: 02-14-2016 End: 02-24-2016 *Hepatic Function Panel Faith renteria PA-C Work Phone: Start: 02-14-2016 End: 02-24-2016 Lipid 1996 panel - Serum or Plasma Faith Baumann PA-C Work Phone: Start: 01-03-2016 End: 09-11-2016 *BMP Faith Baumann PA-C Work Phone: Start: 12-30-2015 End: 12-30-2015 Follow Up Appt Other Faith astudillo PA-C Work Phone: Start: 12-30-2015 End: 12-31-2015 Referral to respiratory physician Faith Baumann PA-C Work Phone: Start: 12-23-2015 End: 12-30-2015 *CBC with Differential Faith sim PA-C Work Phone: Start: 12-23-2015 End: 12-31-2015 Natriuretic peptide B [Mass/volume] in Blood Faith Baumann PA-C Work Phone: Start: 11-22-2015 End: 12-10-2015 Chest x-ray George Malik MD Start: 11-22-2015 End: 12-24-2015 Pulmonary Function Test - complete George Malik MD Start: 10-30-2015 End: 11-21-2015 Echocardiography Faith Baumann PA-C Work Phone: Start: 10-30-2015 End: 10-30-2015 Follow Up Appt 6 weeks Faith sim PA-C Work Phone: Start: 10-30-2015 End: 10-30-2015 MMM Faith Baumann PA-C Work Phone: Start: 10-30-2015 End: 11-22-2015 Nuclear stress test -exercise Faith Baumann PA-C Work Phone: Start: 08-12-2015 End: 08-15-2015 *Hepatic Function Panel George Malik MD Start: 08-12-2015 End: 08-16-2015 Lipid 1996 panel - Serum or Plasma George Malik MD Start: 03-20-2015 End: 03-20-2015 Follow Up Appt 6 months George Malik MD Start: 03-20-2015 End: 03-20-2015 MMM George Malik MD Start: 02-08-2015 End: 02-08-2015 *Hepatic Function Panel George Malik MD Start: 02-08-2015 End: 02-08-2015 Lipid 1996 panel - Serum or Plasma George Malik MD Start: 09-29-2014 End: 10-04-2014 *Hepatic Function Panel George Malik MD Start: 09-29-2014 End: 10-04-2014 Lipid 1996 panel - Serum or Plasma George Malik MD Start: 09-27-2014 End: 09-28-2014 Documentation of current medications Faith Baumann PA-C Work Phone: Start: 09-27-2014 End: 09-27-2014 Follow Up Appt 6 months Faith renteria PA-C Work Phone: Start: 09-27-2014 End: 09-27-2014 Follow Up Appt Other Faith astudillo PA-C Work Phone: Start: 09-27-2014 End: 09-27-2014 PFM Faith Baumann PA-C Work Phone: Start: 03-21-2014 End: 03-21-2014 Follow Up Appt 6 months George Malik MD Start: 03-21-2014 End: 03-21-2014 MMM George Malik MD Start: 03-03-2014 End: 03-16-2014 *Hepatic Function Panel George Malik MD Start: 03-03-2014 End: 03-16-2014 Lipid 1996 panel - Serum or Plasma George Malik MD Start: 09-14-2013 End: 09-14-2013 *BMP Faith Baumann PA-C Work Phone: Start: 09-14-2013 End: 09-14-2013 CBC W Auto Differential panel - Blood Faith Baumann PA-C Work Phone: Start: 09-14-2013 End: 09-18-2013 Chest x-ray Faith Baumann PA-C Work Phone: Start: 09-14-2013 End: 09-14-2013 Ecg routine ecg w/least 12 lds w/i&r Faith Baumann PA-C Work Phone: Start: 09-14-2013 End: 09-27-2014 Echocardiography Faith Baumann PA-C Work Phone: Start: 09-14-2013 End: 09-14-2013 Follow Up Appt 6 months Faith renteria PA-C Work Phone: Start: 09-14-2013 End: 09-14-2013 Follow Up Appt Other Faith astudillo PA-C Work Phone: Start: 09-14-2013 End: 09-14-2013 Natriuretic peptide B [Mass/volume] in Blood Faith Baumann PA-C Work Phone: Start: 09-14-2013 End: 09-14-2013 PFM Faith Baumann PA-C Work Phone: Start: 08-31-2013 End: 10-04-2014 *Hepatic Function Panel George Malik MD Start: 08-31-2013 End: 10-04-2014 Lipid 1996 panel - Serum or Plasma George Malik MD Start: 03-16-2013 End: 03-19-2013 *Hepatic Function Panel George Malik MD Start: 03-16-2013 End: 09-04-2013 Follow Up Appt 6 months George Malik MD Start: 03-16-2013 End: 03-19-2013 Lipid 1996 panel - Serum or Plasma George aMlik MD Start: 03-16-2013 End: 09-04-2013 MMM George Malik MD Start: 09-01-2012 End: 09-01-2012 Follow Up Appt 6 months Faith renteria PA-C Work Phone: Start: 09-01-2012 End: 09-01-2012 PFM Faith Baumann PA-C Work Phone: Start: 06-02-2012 End: 06-02-2012 Follow Up Appt 3 months George Malik MD Start: 06-02-2012 End: 06-02-2012 PFM George Malik MD Start: 04-22-2012 End: 09-01-2012 Follow Up Appt 3 months George Malik MD Start: 02-24-2012 End: 09-01-2012 Ct thorax w/contrast material George Malik MD Start: 02-16-2012 End: 09-01-2012 Nuclear stress test -adenosine George Malik MD Start: 02-02-2012 End: 02-02-2012 Nurse Teaching (no charge) George knapp MD Start: 01-27-2012 End: 02-02-2012 *BMP George Malik MD Start: 01-27-2012 End: 02-02-2012 *CBC with Differential George Malik MD Start: 01-27-2012 End: 02-02-2012 *Hepatic Function Panel George Malik MD Start: 01-27-2012 End: 02-02-2012 Chest x-ray George Malik MD Start: 01-27-2012 End: 01-27-2012 Ecg routine ecg w/least 12 lds w/i&r George Malik MD Start: 01-27-2012 End: 09-01-2012 Follow Up Appt 3 months George Malik MD Start: 01-27-2012 End: 02-02-2012 INR in Platelet poor plasma by Coagulation assay George Malik MD Urine culture Dr. Mely Myles own Work Phone: Urine culture Dr. Mely Myles own Work Phone: Urine culture Dr. Mely Myles own Work Phone: Viral antigen assay Dr. Johnathan Epperson Work Phone: Plan of Treatment Date Care Activity Detail Author Start: 10-23-2024 Urine culture Urine Culture [facility] Start: 10-23-2024 [facility] Start: 09-19-2024 [facility] Start: 09-19-2024 [facility] Start: 09-19-2024 Bacteria identified in Urine by Culture Urine Culture [facility] Start: 09-19-2024 Urine culture [facility] Start: 06-14-2024 Patient referral [facility] Work Phone: Start: 01-08-2022 Methylmalonate measurement [facility] Work Phone: Start: 01-08-2022 Serum immunofixation [facility] Work Phone: Start: 01-08-2022 Thiamine measurement [facility] Work Phone: Start: 01-08-2022 Vitamin B6 measurement [facility] Work Phone: Start: 01-08-2022 [facility] Work Phone: Start: 01-01-2022 Influenza vaccination INFLUENZA (#1) [facility] Start: 11-19-2021 [facility] Work Phone: Start: 11-18-2021 Patient discharge [facility] Work Phone: Start: 11-14-2021 Total replacement of hip Total Hip Anterior Approach (Right) [facility] Work Phone: Start: 11-14-2021 Provision of overbed trapeze [facility] Work Phone: Start: 11-14-2021 Ambulation therapy management [facility] Work Phone: Start: 11-14-2021 Application of device [facility] Work Phone: Start: 11-14-2021 Assessment of risk of venous thromboembolism [facility] Work Phone: Start: 11-14-2021 Catheterization of vein [facility] Work Phone: Start: 11-14-2021 Exercises [facility] Work Phone: Start: 11-14-2021 Following clinical pathway protocol [facility] Work Phone: Start: 11-14-2021 Incentive spirometry [facility] Work Phone: Start: 11-14-2021 Introduction of urinary catheter [facility] Work Phone: Start: 11-14-2021 Measuring intake and output [facility] Work Phone: Start: 11-14-2021 Neurovascular assessment [facility] Work Phone: Start: 11-14-2021 Patient education [facility] Work Phone: Start: 11-14-2021 Procedure discontinued [facility] Work Phone: Start: 11-14-2021 Provision of activity privileges [facility] Work Phone: Start: 11-14-2021 Referral to occupational therapist [facility] Work Phone: Start: 11-14-2021 Referral to service [facility] Work Phone: Start: 11-14-2021 Vital signs measurements [facility] Work Phone: Start: 11-14-2021 Wound care [facility] Work Phone: Start: 11-14-2021 [facility] Work Phone: Start: 11-14-2021 Fluoroscopic guidance O.R. Fluoro for C-Arm [facility] Work Phone: Start: 11-14-2021 Plain x-ray of pelvis and lower extremity Hip 1 view with Pelvis [facility] Work Phone: Start: 11-14-2021 Measuring intake and output [facility] Work Phone: Start: 11-13-2021 Measuring intake and output [facility] Work Phone: Start: 11-13-2021 Measuring intake and output [facility] Work Phone: Start: 11-13-2021 Application of intermittent pneumatic compression device [facility] Work Phone: Start: 11-13-2021 Following clinical pathway protocol [facility] Work Phone: Start: 11-13-2021 Incentive spirometry [facility] Work Phone: Start: 11-13-2021 Application of ice collar, cap or bag [facility] Work Phone: Start: 11-13-2021 Aspiration precautions [facility] Work Phone: Start: 11-13-2021 Assessment of risk of venous thromboembolism [facility] Work Phone: Start: 11-13-2021 Bedrest [facility] Work Phone: Start: 11-13-2021 Consultation [facility] Work Phone: Start: 11-13-2021 Fall prevention [facility] Work Phone: Start: 11-13-2021 Inhalation therapy procedure [facility] Work Phone: Start: 11-13-2021 Insertion of catheter into peripheral vein [facility] Work Phone: Start: 11-13-2021 Neurovascular assessment [facility] Work Phone: Start: 11-13-2021 Oxygen therapy [facility] Work Phone: Start: 11-13-2021 Providing care according to standard [facility] Work Phone: Start: 11-13-2021 Referral to desk editor [facility] Work Phone: Start: 11-13-2021 Referral to occupational therapist [facility] Work Phone: Start: 11-13-2021 Referral to service [facility] Work Phone: Start: 11-13-2021 Skin care [facility] Work Phone: Start: 11-13-2021 End: 11-14-2021 [facility] Work Phone: Start: 11-13-2021 Measuring intake and output [facility] Work Phone: Start: 11-13-2021 Verification routine [facility] Work Phone: Start: 11-13-2021 Admission procedure [facility] Work Phone: Start: 11-11-2021 Patient referral [facility] Work Phone: Start: 05-27-2021 DIABETES SCREEN DIABETES SCREEN [facility] Start: 05-03-2021 ADVANCE DIRECTIVE DISCUSSION ADVANCE DIRECTIVE DISCUSSION [facility] Start: 12-25-2020 COVID-19 VACCINE (3 - Booster for Pfizer series) COVID-19 VACCINE (3 - Booster for Pfizer series) [facility] Start: 05-13-2020 [place] influenza 2019 Novel Coronavirus (COVID-19), RICKIE ([id number]) [facility] Work Phone: Start: 03-19-2020 [place] influenza 2019 Novel Coronavirus (COVID-19), RICKIE ([id number]) [facility] Work Phone: Start: 09-01-2017 End: 03-05-2017 *Hepatic Function Panel *Hepatic Function Panel [facility] Work Phone: Start: 09-01-2017 End: 03-05-2017 Lipid panel [AGGREGATE] *Lipid Profile CC PCP [facility] Work Phone: Start: 03-10-2017 End: 03-10-2017 Appointment [facility] [facility] Work Phone: Start: 03-03-2017 End: 03-05-2017 *Hepatic Function Panel *Hepatic Function Panel [facility] Work Phone: Start: 03-03-2017 End: 03-05-2017 Lipid panel [AGGREGATE] *Lipid Profile CC PCP [facility] Work Phone: Start: 09-16-2016 End: 09-16-2016 Follow Up Appt 6 months Follow Up Appt 6 months [facility] Work Phone: Start: 09-16-2016 End: 09-16-2016 PFM PFM [facility] Work Phone: Start: 08-25-2016 End: 08-31-2016 *Hepatic Function Panel *Hepatic Function Panel [facility] Work Phone: Start: 08-25-2016 End: 08-31-2016 Lipid panel [AGGREGATE] *Lipid Profile CC PCP [facility] Work Phone: Start: 03-18-2016 End: 03-18-2016 Follow Up Appt 6 months Follow Up Appt 6 months [facility] Work Phone: Start: 03-18-2016 End: 03-18-2016 MMM MMM [facility] Work Phone: Start: 02-14-2016 End: 02-24-2016 *Hepatic Function Panel *Hepatic Function Panel [facility] Work Phone: Start: 02-14-2016 End: 02-24-2016 Lipid panel [AGGREGATE] *Lipid Profile CC [facility]CP [facility] Work Phone: Start: 01-10-2016 End: 01-10-2016 Pulmonary stress test/simple Pulmonary stress testing; simple (eg, 6-minute walk) [facility] Work Phone: Start: 01-03-2016 End: 09-11-2016 *BMP *BMP [facility] Work Phone: Start: 12-30-2015 End: 12-30-2015 Follow Up Appt Other Follow Up Appt Other [facility] Work Phone: Start: 12-30-2015 End: 09-11-2016 Pulmonary Referral Pulmonary Referral Isaiah Griffith, [facility] [place], [address], [place], [address] [facility] Work Phone: Start: 12-23-2015 End: 12-30-2015 *CBC with Differential *CBC with Differential [facility] Work Phone: Start: 12-23-2015 End: 12-31-2015 BNP *Brain Natriuretic Peptide BNP [facility] Work Phone: Start: 11-22-2015 End: 12-10-2015 Chest x-ray X-Ray, Chest, PA & Lateral [facility] Work Phone: Start: 11-22-2015 End: 11-22-2015 Pulmonary Function Test - complete Pulmonary Function Test - complete [facility] Work Phone: Start: 10-30-2015 End: 10-30-2015 Echocardiography Echocardiogram (complete) [facility] Work Phone: Start: 10-30-2015 End: 10-30-2015 Follow Up Appt 6 weeks Follow Up Appt 6 weeks [facility] Work Phone: Start: 10-30-2015 End: 10-30-2015 MMM MMM [facility] Work Phone: Start: 10-30-2015 End: 10-30-2015 Nuclear stress test -exercise Nuclear stress test -exercise [facility] Work Phone: Start: 08-12-2015 End: 08-15-2015 *Hepatic Function Panel *Hepatic Function Panel [facility] Work Phone: Start: 08-12-2015 End: 08-16-2015 Lipid panel [AGGREGATE] *Lipid Profile CC PCP [facility] Work Phone: Start: 03-20-2015 End: 03-20-2015 Follow Up Appt 6 months Follow Up Appt 6 months [facility] Work Phone: Start: 03-20-2015 End: 03-20-2015 MMM MMM [facility] Work Phone: Start: 02-08-2015 End: 02-08-2015 *Hepatic Function Panel *Hepatic Function Panel [facility] Work Phone: Start: 02-08-2015 End: 02-08-2015 Lipid panel [AGGREGATE] *Lipid Profile CC PCP [facility] Work Phone: Start: 09-29-2014 End: 10-04-2014 *Hepatic Function Panel *Hepatic Function Panel [facility] Work Phone: Start: 09-29-2014 End: 10-04-2014 Lipid panel [AGGREGATE] *Lipid Profile CC PCP [facility] Work Phone: Start: 09-27-2014 End: 09-27-2014 Follow Up Appt 6 months Follow Up Appt 6 months [facility] Work Phone: Start: 09-27-2014 End: 09-27-2014 Follow Up Appt Other Follow Up Appt Other [facility] Work Phone: Start: 09-27-2014 End: 09-27-2014 PFM PFM [facility] Work Phone: Start: 03-21-2014 End: 03-21-2014 Follow Up Appt 6 months Follow Up Appt 6 months [facility] Work Phone: Start: 03-21-2014 End: 03-21-2014 MMM MMM [facility] Work Phone: Start: 03-03-2014 End: 03-16-2014 *Hepatic Function Panel *Hepatic Function Panel [facility] Work Phone: Start: 03-03-2014 End: 03-16-2014 Lipid panel [AGGREGATE] *Lipid Profile CC PCP [facility] Work Phone: Start: 09-14-2013 End: 09-14-2013 *BMP *BMP [facility] Work Phone: Start: 09-14-2013 End: 09-14-2013 BNP *Brain Natriuretic Peptide BNP [facility] Work Phone: Start: 09-14-2013 End: 09-14-2013 CBC W Auto Differential panel - Blood *CBC without Diff [facility] Work Phone: Start: 09-14-2013 End: 09-18-2013 Chest x-ray X-Ray, Chest, PA & Lateral [facility] Work Phone: Start: 09-14-2013 End: 09-14-2013 Ecg routine ecg w/least 12 lds w/i&r EKG (In office) [facility] Work Phone: Start: 09-14-2013 End: 09-14-2013 Echocardiography Echocardiogram (complete) [facility] Work Phone: Start: 09-14-2013 End: 09-14-2013 Follow Up Appt 6 months Follow Up Appt 6 months [facility] Work Phone: Start: 09-14-2013 End: 09-14-2013 Follow Up Appt Other Follow Up Appt Other [facility] Work Phone: Start: 09-14-2013 End: 09-14-2013 PFM PFM [facility] Work Phone: Start: 08-31-2013 End: 09-14-2013 *Hepatic Function Panel *Hepatic Function Panel [facility] Work Phone: Start: 08-31-2013 [...] Phone: Start: 03-16-2013 End: 09-04-2013 MMM MMM [facility] Work Phone: Start: 09-01-2012 End: 09-01-2012 Follow Up Appt 6 months Follow Up Appt 6 months [facility] Work Phone: Start: 09-01-2012 End: 09-01-2012 PFM PFM [facility] Work Phone: Start: 06-02-2012 End: 06-02-2012 Follow Up Appt 3 months Follow Up Appt 3 months [facility] Work Phone: Start: 06-02-2012 End: 06-02-2012 PFM PFM [facility] Work Phone: Start: 04-22-2012 End: 09-01-2012 Follow Up Appt 3 months Follow Up Appt 3 months [facility] Work Phone: Start: 02-24-2012 End: 02-10-2012 Ct thorax w/contrast material CT Chest with Contrast [facility] Work Phone: Start: 02-16-2012 End: 02-10-2012 Nuclear stress test -adenosine Nuclear stress test -adenosine [facility] Work Phone: Start: 01-27-2012 End: 02-02-2012 *BMP *BMP [facility] Work Phone: Start: 01-27-2012 End: 02-02-2012 *CBC with Differential *CBC with Differential [facility] Work Phone: Start: 01-27-2012 End: 02-02-2012 *Hepatic Function Panel *Hepatic Function Panel [facility] Work Phone: Start: 01-27-2012 End: 02-02-2012 Chest x-ray X-Ray, Chest, PA & Lateral [facility] Work Phone: Start: 01-27-2012 End: 01-27-2012 Ecg routine ecg w/least 12 lds w/i&r EKG (In office) [facility] Work Phone: Start: 01-27-2012 End: 09-01-2012 Follow Up Appt 3 months Follow Up Appt 3 months [facility] Work Phone: Start: 01-27-2012 End: 02-02-2012 INR Coag RelTime (PPP) *PT/INR [facility] Work Phone: Start: 02-20-2005 BONE DENSITY BONE DENSITY [facility] Start: 02-20-2005 PNEUMOCOCCAL: 65+ (1 - PCV) PNEUMOCOCCAL: 65+ (1 - PCV) [facility] Start: 02-20-1990 SHINGRIX VACCINE (1 of 2) SHINGRIX VACCINE (1 of 2) [facility] Start: 02-20-1959 Urine microalbumin profile DTAP,TDAP,TD (1 - Tdap) [facility] Alanine aminotransfe rase [Enzymatic activity/volume] in Serum or Plasma [facility] Work Phone: Albumin [Mass/volume ] in Serum or Plasma [facility] Work Phone: Albumin/Globulin [Ma ss Ratio] in Serum or Plasma by Electrophoresis [facility] Work Phone: Alkaline phosphatase [Enzymatic activity/volume] in Serum or Plasma [facility] Work Phone: Anion gap measurement [facility] Work Phone: Aspartate aminotrans ferase [Enzymatic activity/volume] in Serum or Plasma [facility] Work Phone: Bilirubin, total measurement [facility] Work Phone: BUN/Creatinine ratio [facility] Work Phone: Calcium [Mass/volume ] in Serum or Plasma [facility] Work Phone: Carbon dioxide, tota l [Moles/volume] in Serum or Plasma [facility] Work Phone: Chloride [Moles/volu me] in Serum or Plasma [facility] Work Phone: Copper [Moles/volume ] in Serum or Plasma [facility] Work Phone: Creatinine [Moles/vo lume] in Serum or Plasma [facility] Work Phone: Electrophoresis: albumin [facility] Work Phone: Electrophoresis: [id number] [facility] Work Phone: Electrophoresis: [id number] [facility] Work Phone: Electrophoresis: dulce ma globulin [facility] Work Phone: Globulin measurement [facility] Work Phone: Glucose [Mass/volume ] in Serum or Plasma [facility] Work Phone: Hematocrit [Volume Fraction] of Blood [facility] Work Phone: Hemoglobin [Mass/vol ume] in Blood [facility] Work Phone: IgA [Mass/volume] in Serum or Plasma [facility] Work Phone: IgG [Mass/volume] in Serum or Plasma [facility] Work Phone: IgM [Mass/volume] in Serum or Plasma [facility] Work Phone: Leukocytes [#/volume ] in Blood [facility] Work Phone: Mean corpuscular hemoglobin concentration determination [facility] Work Phone: Mean corpuscular hemoglobin determination [facility] Work Phone: Measurement of renal function [facility] Work Phone: Methylmalonate measurement [facility] Work Phone: Neutrophil count [facility] Work Phone: Neutrophil percent differential count [facility] Work Phone: Patient Education [facility] Work Phone: Patient referral [facility] Work Phone: Platelets [#/volume] in Blood [facility] Work Phone: Potassium [Moles/vol ume] in Serum or Plasma [facility] Work Phone: Protein electrophore sis panel - Serum or Plasma [facility] Work Phone: Red blood cell count [facility] Work Phone: Red cell distributio n width determination [facility] Work Phone: Serum protein electrophoresis [facility] Work Phone: Martínez extractable nu clear Ab [Presence] in Serum [facility] Work Phone: Sodium [Moles/volume ] in Serum or Plasma [facility] Work Phone: Thiamine measurement [facility] Work Phone: Total globulins measurement [facility] Work Phone: Total protein measurement [facility] Work Phone: Urea nitrogen [Mass/volume] in Serum or Plasma [facility] Work Phone: Urinalysis complete panel - Urine [facility] Vitamin B6 measurement [facility] Work Phone: [facility] Immunizations Immunization Date Immunization Notes Care Provider [facility] 02-09-2024 Seasonal trivalent influenza vaccine, adjuvanted, preservative free Dr. Mely Epperson DO Work Phone: [facility] 02-17-2023 influenza, injectabl e, quadrivalent, preservative free Dr. Mely Epperson Work Phone: [facility] 02-12-2022 influenza, injectabl e, quadrivalent, preservative free Dr. Mely Epperson Work Phone: [facility] 02-12-2022 influenza, seasonal, injectable Dr. Mely Epperson Work Phone: [facility] 07-25-2020 Covid (Pfizer) Dr. Mely cazares Work Phone: [facility] 07-04-2020 Covid (Pfizer) Dr. Mely cazares Work Phone: [facility] 01-24-2019 flu vacc 2018-(65y r up)-MF59C(PF) 45 mcg(15 mcgx3)/0.[address] Mely Epperson Work Phone: [facility] Work Phone: 01-24-[address] eMly Epperson Work Phone: [facility] Payers Date Payer Category Payer Medicare [id number] 2022 Self-pay [id number] 2019 Unknown ANTHEM BLUE CROS S AND BLUE SHIELD ANTHEM MEDIBLUE HMO [id number] 2019-Present [phone] [address] [place] [address] HMO [id number] 2014 Medicare [id number] 1940 Unknown [id number] 2.16.840.1.277987.3.579.2.278 1940 Unknown [id number] 2.16.840.1.575969.3.579.2.278 1940 Unknown [id number] 2.16.840.1.891094.3.579.2.278 1940 Unknown [id number] 2.16.840.1.971778.3.579.2.278 1940 Unknown [id number] 2.16.840.1.688012.3.579.2.278 1940 Unknown [id number] 2.16.840.1.360073.3.579.2.278 1940 Unknown [id number] 2.16.840.1.630423.3.579.2.278 1940 Unknown [id number] 2.16.840.1.407866.3.579.2.278 Medicare [id number] Unknown [id number] Unknown [id number] Unknown [place]/Medicare Adv plan Unknown [id number] 2.16.840.1.541502.3.579.2.462 Unknown [id number] 2.16.840.1.813377.3.579.2.462 Unknown [id number] 2.16.840.1.815931.3.579.2.462 Unknown [id number] 2..840.1.229710.3.579.2.462 Unknown [id number] 2.840.1.411558.3.579.2.462 Unknown [id number] 2.840.1.904355.3.579.2.462 Unknown [id number] 2.840.1.748268.3.579.2.462 Unknown [id number] 2.840.1.544914.3.579.2.462 Unknown [id number] 2.840.1.871152.3.579.2.462 Unknown [id number] 2.840.1.621498.3.579.2.462 Unknown [id number] 2.840.1.245826.3.579.2.462 Unknown [id number] 2.840.1.722928.3.579.2.462 Unknown [id number] 2.840.1.611668.3.579.2.462 Unknown [id number] 2.840.1.925358.3.579.2.462 Unknown [id number] 2..840.1.508428.3.579.2.462 Unknown [id number] 2.16840.1.231858.3.579.2.462 Unknown [id number] 2.16.840.1.840269.3.579.2.462 Unknown [id number] 2.840.1.542342.3.579.2.462 Unknown [id number] 2.16.840.1.514740.3.579.2.462 Unknown [id number] 2.16.840.1.238681.3.579.2.462 Unknown [id number] 2.16.840.1.424741.3.579.2.462 Unknown [id number] 2.16.840.1.823713.3.579.2.462 Unknown [id number] 2.16.840.1.123382.3.579.2.462 Unknown [id number] 2.16.840.1.051391.3.579.2.462 Unknown [id number] 2.16.840.1.825749.3.579.2.462 Unknown [id number] 2.16.840.1.672073.3.579.2.462 Social History Date Type Detail Facility Start: 08-28-2021 End: 06-07-2023 Tobacco smoking status MDIS Unknown if ever smoked [facility] Start: 10-28-2020 Non-smoker [facility] Start: 1940 Sex Assigned At Female [facility] Start: 01-26-2012 End: 09-19-2024 Tobacco smoking status MDIS Never smoked tobacco [facility] Start: 01-26-2012 Tobacco use and exposure Smokeless tobacco non-user [facility] Start: 02-10-2021 Alcohol intake 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) [facility] Start: 1940 Sex Assigned At Not on file [facility] Start: 10-11-2017 Spouse/ Signif icant Other [facility] Medical Equipment Procedure Code Equipment Code Equipment Original Text Equipment Identifier Dates Minimally invasive total replacement of hip joint by anterior approach ([id number]) Metallic femoral head prosthesis ()[id number] [facility] Start: 11-14-2021 Minimally invasive total replacement of hip joint by anterior approach ([id number]) Bipolar femoral head outer component, hemiarthroplasty ()[id number] FDA Start: 11-14-2021 Minimally invasive total replacement of hip joint by anterior approach ([id number]) Coated hip femur prosthesis, modular ()[id number] FDA Start: 11-14-2021 Mesh Bio-A Synth etic 10x7cm Surgical Reinforcement Hernia Repair - [id number] Start: 05-26-2018 Goals Date Patient Goal Desired Activity /State Functional Status Date Assessment Result Facility 11-18-2021 Functional status Chair [facility] Work Phone: 11-14-2021 Functional status Bedrest [facility] Work Phone: Mental Status Date Assessment Result Facility 11-18-2021 Cognitive function Voice/Name [facility] Work Phone: 11-14-2021 Cognitive function Voice/Name [facility] Work Phone: Clinical Notes 03-01-2018 to 10-11-2024 Note Date & Type Note Facility 10-11-2024 Progress note [facility] 10-11-2024 Progress note Note Date/Time October 11, 2024 1:33pm [facility] [address] [place] [address] OFFICE VISIT Date of Service: 10/11/24 MR#: [id number] Acct: [id number] Name: FLETCHER FINNEYLucinda García Rep #: [id number] : 1940 Provider: Dr. Johnathan Epperson, Age/Sex: 84/F Location: [facility] Status: Signed Intake Vital Signs 06/14/24 13:29 09/20/24 13:25 10/11/24 13:06 Height 5 ft 3 in 5 ft 2 in 5 ft 2 in Weight: 157 lb BMI 28.7 BP 148/76 H Blood Pressure Location Lt brachial Position Sitting Respiration 16 Pulse 55 L Pulse Source Monitor Temp 97.9 F Temp Source Temporal Pulse Oximetry (%) 99 Oxygen Delivery Method room air Intake Visit Reasons: 4 M FU Chief Complaint: Right leg swelling. Remedial Reading Teacher Required: No Accompanied by: Daughter Is patient in pain?: No Allergies No Known Allergies Allergy (Verified 10/11/24 12:54) Medications ?Medication ?Instructions ?Recorded ?Confirmed ?Type ascorbic acid (vitamin C) 500 mg 500 mg PO QDAY supple ment 09/14/17 10/11/24 History tablet multivitamin 1 tab PO DAILY supplement 10/11/24 History inhalational spacing device #1 ea 11/07/20 10/11/24 Rx acetaminophen 500 mg tablet 1,000 mg (2 x 500 mg) PO Q 8 #0 tabs 11/18/21 10/11/24 Rx sennosides 8.6 mg-docusate sodium 2 tab PO BID #0 tabs 11/18/21 10/11/24 Rx 50 mg tablet (Stool Softener-Stimulant Laxative) lysine 500 mg tablet 500 mg PO DAILY 02/12/2203/27 History nebulizer #1 ea 02/12/22 10/11/24 Rx ipratropium 0.5 mg-albuterol 3 mg 3 ml inhalation Q4H PRN shortness 07/31/22 10/11/24 Rx (2.5 mg base)/3 mL nebulization of breath or wheezing #180 mL soln ferrous sulfate 325 mg (65 mg 325 mg PO DAILY 02/17/23 10/11/24 History iron) tablet pregabalin 25 mg capsule 150 mg PO BID 01/31/2410/11 History albuterol sulfate 90 mcg/actuation See Rx Instructions .Route 04/17/24 10/11/24 Rx aerosol inhaler .COMPLEX #36 grams atorvastatin 20 mg tablet See Rx Instructions .Route 1 10/11/24 Rx .COMPLEX #90 tabs omeprazole 40 mg capsule,delayed 40 mg PO DAILY #90 ca ps 05/01/24 10/11/24 Rx release losartan 50 mg tablet 50 mg PO DAILY #90 tabs 06/0310/11/24 Rx apixaban 2.5 mg tablet 2.5 mg PO BID #180 tabs 06/0410/11/24 Rx levothyroxine 137 mcg tablet 137 mcg PO DAILY #90 TABL ETS 07/18/24 10/11/24 Rx (Synthroid) albuterol sulfate 1.25 mg/3 mL 1.25 mg (3 mL) inhalati on Q4H #90 07/20/24 10/11/24 Rx solution for nebulization mL carvedilol 25 mg tablet 25 mg PO BID #60 tabs 10/11/24 Rx Have you fallen in the past year?: No Nurse's Note: [facility], prescribed macrobid, and was foundnot sensitive after culture. Dc'd and finished course of augmentin. Pt never exhibits sx's but acts goofy. Daughter has not had any c/o abnormal behavior butwants her rechecked. Wants to know if methenamine should be finished as she is uncertain if it will keep uti's away. Pt has had ongoing swelling in RLE, Pt has pain that hurts all the time compression stocking do not help any longer, pt does ice qd and elevate. Pt states pain is worse at bedtime. As soon as she starts walking pain eases, but then the swelling starts back up. Pt does have neuropathy and sometimes struggles to walk. [facility] Medical History Acute bronchitis UTI (urinary tract infection) A-fib PAF (paroxysmal atrial fibrillation) Valvular heart disease Peripheral neuropathy Neuropathy Hyponatremia Hypothyroidism Nonrheumatic aortic (valve) insufficiency Nonrheumatic mitral (valve) insufficiency Non-rheumatic tricuspid valve insufficiency Pure hypercholesterolemia Hernia Abnormal electrocardiogram Mitral insufficiency, acute Abnormal pulmonary function test Chest discomfort Dyspnea (~01/30/21) HLD (hyperlipidemia) Atherosclerotic heart disease of [place] coronary artery without angina pectoris Essential (primary) hypertension Surgical History History of cataract surgery History of hip surgery S/P right rotator cuff repair History of bladder suspension procedure History of thyroidectomy History of hysterectomy History of tubal ligation History of appendectomy History of hernia repair History of repair of hiatal hernia Family History Mother CVA (cerebral vascular accident) Brother CAD (coronary artery disease) Sister CAD (coronary artery disease) Myocardial infarction Son CAD (coronary artery disease) Social History household members: significant other Smoking Status: Never smoker alcohol intake: never substance use type: does not use caffeine: No what type of physical activity do you participate in: other details: [facility] HPI HPI Chief Complaint: Right leg swelling. Details: MARIA ESTHER FINNEY, is a 84 F who presents to the office today for a recheck office visit. In the last several months she has seen cardiology and they switched beta-blockers to carvedilol. She has been to urgent care once for her low rightleg being swollen where they did a Doppler and it showed no clot and once for urinary tract infection which showed an infection of Streptococcus. She was placed on amoxicillin/clavulanate for that infection and she is stopped. The biggest problem she has is she gets UTIs in the first sign is mental confusion as she does not have any significant frequency or burning with urination. ROS Const Constitutional: No body ache, chills, excessive sweating, fatigue, fever(s), frequent falls, headache(s), snoring, weakness, sleep problems or change in appetite Eyes Eyes: No blurry vision, change in vision, eye pain or Light sensitivity ENT ENT: No abnormal hearing, ear or mastoid pain, tinnitus, nasal congestion, headache(s), neck pain or sore throat Resp Respiratory: No cough, shortness of breath, snoring or wheezing Cardio Cardiology: No chest pain at rest, chest pain with exertion, excessive sweating,shortness of breath, dyspnea on exertion, lightheadedness, orthopnea or palpitations Gastro GI: No abdominal pain, change in bowel habits, constipation, cramping, diarrhea,nausea/dyspepsia or vomiting Genitourinary-Female: No burning urination, painful urination, urinary incontinence, urinary frequency, abnormal vaginal bleeding or pelvic pain Musc Musculoskeletal: Positive for abnormal gait, tingling, leg pain at night and other; No joint pain, back pain, limited range of motion, neck pain or numbness Skin Skin: No dry skin, redness, lesions, itchy eyes, rash or wounds Neuro Neurology: Positive for abnormal gait and tingling; No abnormal hearing, weakness, frequent falls, headache(s), memory loss or numbness Psych Psychiatric: No anxiety, No change in appetite, No depression, No memory loss and No Thoughts of harming yourself/Others Endo Endocrine: No cold intolerance, excessive sweating, fatigue, flushing, heat intolerance, increased thirst/drinking or increased hunger Aller/Imm Allergy/Immunologic: No itchy eyes, seasonal allergy symptoms, hives or wheezing [place]/Lymp Hematologic/Lymphatic: No easy bleeding, easy bruising, enlarged lymph nodes or other Exam Const General: cooperative, healthy appearing and no acute distress Nutritional Appearance: average body habitus [facility] Head: normal to inspection Ears: hearing grossly normal bilaterally Eyes General: appearance normal, both eyes and all related structures Neck Neck: normal visual inspection Neck mass: No Thyroid: thyroid normal Resp Effort & Inspection: normal respiratory effort Auscultation: Bilateral: Clear to Auscultation Cardio Rhythm: abnormal rhythm regularly irregular GI Inspection: normal to inspection Palpation: soft and no hepatosplenomegaly Musc Musculoskeletal: Yes joint tenderness (left middle finger is locking again) Skin General: no rashes or lesions noted Neuro General: patient alert Cranial Nerves: CN's II-XI intact bilaterally Extrem General: no clubbing, cyanosis or edema and edema Laterality: right Severity: pitting and 1+ Psych Mood: congruent mood Affect: normal affect Speech and Movement: speech and movement normal Attitude: cooperative Coding Level of Care Code Off vis,est,level 3 Diagnoses UTI symptoms R39.9 Venous insufficiency of right leg I87.2 Primary osteoarthritis of right knee M17.11 On continuous oral anticoagulation Z79.01 Chronic atrial fibrillation I48.20 Atrial fibrillation type: unspecified chronic Assessment and Plan Assessment and Plan (1) UTI symptoms: Status: Acute Plan: I will get a urinalysis to see if her urinary tract infection is cleared up completely. (2) Venous insufficiency of right leg: Status: Acute Plan: The treatment for her venous insufficiency would be support hose. According to her daughter she has them but does not like how it feels. I told her she does not have enough edema in that leg that is going to cause long-term problems so she has a choice between having some swelling in the leg or wearing support hose. (3) Primary osteoarthritis of right knee: Status: Acute Plan: Her knee was injected about a month ago and its taken a lot of the soreness awayshe walks much more easily. (4) On continuous oral anticoagulation: Status: Chronic Plan: She continues to take Eliquis. As noted she had a venous Doppler but I would besurprised if she would form a clot being on the Eliquis on a constant basis (5) Unspecified atrial fibrillation: Status: Chronic Qualifiers: Atrial fibrillation type: unspecified chronic Qualified Code(s): I48.20- Chronic atrial fibrillation, unspecified Plan: She remains in atrial fibrillation but has good ventricular rate control. Orders: Orders Urinalysis, Complete Today R39.9 - Unspecified symptoms and signs involving thegenitourinary system Medications: Discontinued methenamine hippurate Discontinued Reason: Discontinued by PCP/other physicians 1 g PO ONCE Plan Details Follow Up: 4 Months Clinical Quality Measures Falls Risk Screening/Assistive Devices Have you fallen in the past year?: No 10/11/24 1333 <Electronically signed by Mely ansari DO> Date _ Mely Epperson DO Cosigner Signature: Date (if applicable) CC: ~ [facility] [employer] Work Phone: 1(830) 209-116804-02-2025 Evaluation note* Diagnosis Onset Date Resolution Status Admit Date Leg pain, anterior acute August 02, 2024 2:15pm Primary osteoarthritis of ri ght knee acute September 06, 2024 1: 49pm Atrial fibrillation chronic September 012024 1:22pm Elevated blood pressure read ing in office with diagnosis of hypertension inactive September 20, 2024 1 :22pm Right leg swelling inactive September 202024 1:22pm Primary osteoarthritis of ri ght knee acute October 11, 2024 12:52pm UTI symptoms acute October 11, 2 025 12:52pm Venous insufficiency of righ t leg acute October 11, 2024 12:52pm On continuous oral anticoagulation chronic October 11, 2024 12:52pm 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 October 11, 2024 12:52pm UTI symptoms acute October 22, 2 025 7:59am [facility] Work Phone: 1(107) 294-557002-26-2025 Evaluation note* Diagnosis Onset Date Resolution Status Admit Date Trigger finger, left ring finger acute June 28, 2 025 1:23pm Leg pain, anterior acute August 02, 2024 2:15pm Primary osteoarthritis of ri ght knee acute September 06, 2024 1: 49pm Atrial fibrillation chronic September 012024 1:22pm Elevated blood pressure read ing in office with diagnosis of hypertension inactive September 20, 2024 1 :22pm Right leg swelling inactive September 202024 1:22pm Primary osteoarthritis of ri ght knee acute October 11, 2024 12:52pm UTI symptoms acute October 11 025 12:52pm Venous insufficiency of righ t leg acute October 11, 2024 12:52pm On continuous oral anticoagulation chronic October 11, 2024 12:52pm 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 October 11, 2024 12:52pm [facility] Work Phone: 1(421) 824-793802-26-2025 Evaluation note* Diagnosis Onset Date Resolution Status Admit Date Trigger finger, left ring finger acute June 28, 2 025 1:23pm Leg pain, anterior acute August 02, 2024 2:15pm Primary osteoarthritis of ri ght knee acute September 06, 2024 1: 49pm Atrial fibrillation chronic September 012024 1:22pm Elevated blood pressure read ing in office with diagnosis of hypertension inactive September 20, 2024 1 :22pm Right leg swelling inactive September 202024 1:22pm Primary osteoarthritis of ri ght knee acute October 11, 2024 12:52pm UTI symptoms acute October 11 2 025 12:52pm Venous insufficiency of righ t leg acute October 11, 2024 12:52pm On continuous oral anticoagulation chronic October 11, 2024 12:52pm 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 October 11, 2024 12:52pm UTI symptoms acute October 22 025 7:59am [facility] Work Phone: 1(646) 325-223102-12-2025 Evaluation note* Diagnosis Onset Date Resolution Status Admit Date Orthostatic lightheadedness acute June 14, 2024 1:19pm Peripheral neuropathy acute Jun 1:19pm Trigger finger of left hand acute June 14, 2024 1:19pm UTI symptoms acute June 1:19pm Atrial fibrillation chronic 2024 1:19pm On continuous oral anticoagulation chronic June 14 1:19pm Trigger finger, left ring finger acute June 28 025 1:23pm Leg pain, anterior acute August 02, 2024 2:15pm Primary osteoarthritis of ri ght knee acute September 06, 2024 1: 49pm [facility] Work Phone: 1([phone]) 726-667202-12-2025 Evaluation note* Diagnosis Onset Date Resolution Status Admit Date Orthostatic lightheadedness acute June 14, 2024 1:19pm Peripheral neuropathy acute Jun 1:19pm Trigger finger of left hand acute June 14, 2024 1:19pm UTI symptoms acute June 1:19pm Atrial fibrillation chronic 2024 1:19pm On continuous oral anticoagulation chronic June 14 1:19pm Trigger finger, left ring finger acute June 28 025 1:23pm Leg pain, anterior acute August 02, 2024 2:15pm Primary osteoarthritis of ri ght knee acute September 06, 2024 1: 49pm Atrial fibrillation chronic September 012024 1:22pm Elevated blood pressure read ing in office with diagnosis of hypertension inactive September 20, 2024 1 :22pm Right leg swelling inactive September 202024 1:22pm [facility] Work Phone: 1(438) 800-599702-12-2025 Evaluation note* Diagnosis Onset Date Resolution Status Admit Date Orthostatic lightheadedness acute June 14, 2024 1:19pm Peripheral neuropathy acute Jun 1:19pm Trigger finger of left hand acute June 14, 2024 1:19pm UTI symptoms acute June 1:19pm Atrial fibrillation chronic 2024 1:19pm On continuous oral anticoagulation chronic June 14 025 1:19pm Trigger finger, left ring finger acute June 28 025 1:23pm Leg pain, anterior acute August 02, 2024 2:15pm Primary osteoarthritis of ri ght knee acute September 06, 2024 1: 49pm Atrial fibrillation chronic May 2 1st, 2025 1:22pm Elevated blood pressure read ing in office with diagnosis of hypertension inactive September 20, 2024 1 :22pm Right leg swelling inactive September 202024 1:22pm Primary osteoarthritis of ri ght knee acute October 11, 2024 12:52pm UTI symptoms acute October 11, 2 025 12:52pm Venous insufficiency of righ t leg acute October 11, 2024 12:52pm On continuous oral anticoagulation chronic October 11, 2024 12:52pm 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 Chan [facility] July 30, 2022 7:40pm Note Date/Time July 30, 2022 7:2 3pm [facility] Medical Records Department [address] [facility] [place] [address] Emergency Department Summary 07/30/22 MR#: [id number] Acct: [id number] Name: MARIA ESTHER FINNEY Rep #:[id number] : 1940 82 From: Guanako Chan MD PCP: Dr. Mely Epperson, DO Status:RE G ER Location: ED HPI History of Present Illness Chief Complaint: Shortness of Breath Detail of Chief Complaint: Patient presents with shortness of breath and no improvement. Patient was Informant: patient and family Onset/Context/Timing Onset: Weeks Context: sudden Timing: Continuous and Waxes and wanes Quality: Positive for Dyspnea on exertion and Wheezing; Negative for Orthopnea or PND Current Severity: Mild Maximum Severity: Moderate Worsened by: Exertion and Coughing Relieved by: Nothing Associated Symptoms cough, rhinorrhea, post nasal drip, fever and sore throat; Negative for ear pain, subjective or chills Chest Pain: Positive for None Narrative Narrative: Patient is an 82-year-old woman with history of COPD, atrial fibrillation on anticoagulant, hypertension, hyperlipidemia, pure hypercholesterolemia, peripheral neuropathy and nonrheumatic valvular heart disease who presents because she has not improved. Records from July 23 and were reviewed. She was treated for COPD exacerbation. She was on antibiotics prior to her presentation. The antibiotic she was on was levofloxacin. She returned on the . CAT scan revealed a small right middle lobe infiltrate. Patient presentsbecause she does not feel any better. She is taking the antibiotic. Patient's breathing is not labored. Breathing is not rapid. Heart rate is slightly rapid. She does have history of atrial fibrillation. She appears anxious. Reviewing prior records indicates she has history of anxiety/anxiousness. Patient's cough is essentially nonproductive. She does endorse rhinorrhea, congestion, postnasal drainage and sore throat. She denies leg pain, swelling or discoloration. She has no history of PE or DVT. Furthermore she is on an anticoagulant and reports compliance. Patient has no GI or symptoms. PE Risk Factors: Negative for Cancer, OCP + Smoking + > 35, Prior DVT or PE, Recent immobilization, Recent surgery or Recent travel Prior similar symptoms: Yes Recent Illness/Hospital[facility]: [facility] Medical History A-fib Abnormal electrocardiogram Abnormal pulmonary function test Acute bronchitis Atherosclerotic heart disease of [place] coronary artery without angina pectoris Chest discomfort Dyspnea (~01/30/21) Essential (primary) hypertension Hernia HLD (hyperlipidemia) Hyponatremia Hypothyroidism Mitral insufficiency, acute Neuropathy Non-rheumatic tricuspid valve insufficiency Nonrheumatic aortic (valve) insufficiency Nonrheumatic mitral (valve) insufficiency PAF (paroxysmal atrial fibrillation) Peripheral neuropathy Pure hypercholesterolemia UTI (urinary tract infection) Home Medications ascorbic acid (vitamin C) 500 mg tablet 500 mg PO QDAY supplement 09/14/17 [History Last Taken Unknown] multivitamin 1 tab PO DAILY supplement 06/29/18 [History Last Taken Unknown] inhalational spacing device #1 ea 11/07/20 [Rx Last Taken Unknown] apixaban 2.5 mg tablet 2.5 mg PO BID #180 tabs 11/06/21 [Rx Last Taken Unknown] acetaminophen 500 mg tablet 1,000 mg PO Q8 #0 tabs 11/18/21 [Rx Last Taken Unknown] sennosides 8.6 mg-docusate sodium 50 mg tablet (Stool Softener-Stimulant Laxative) 2 tab PO BID #0 tabs 11/18/21 [Rx Last Taken Unknown] levothyroxine 137 mcg tablet 137 mcg PO QDAY #90 tabs 01/07/22 [Rx Last Taken Unknown] omeprazole 40 mg capsule,delayed release 40 mg PO DAILY #90 caps 02/10/22 [Rx Last Taken Unknown] lysine 500 mg tablet 500 mg PO DAILY 02/12/22 [History Last Taken Unknown] nebulizer #1 ea 02/12/22 [Rx Last Taken Unknown] atorvastatin 20 mg tablet See Rx Instructions .Route .COMPLEX #90 tabs 04/06/22 [Rx Last Taken Unknown] pregabalin 25 mg capsule 50 mg PO BID 05/06/22 [History Last Taken Unknown] metoprolol tartrate 50 mg tablet 50 mg PO QHS heart/BP #90 tabs 05/14/22 [Rx Last Taken Unknown] amlodipine 5 mg tablet See Rx Instructions .Route .COMPLEX #90 tabs 06/22/22 [Rx Last Taken Unknown] losartan 25 mg tablet See Rx Instructions .Route .COMPLEX #90 tabs 06/22/22 [Rx Last Taken Unknown] albuterol sulfate 1.25 mg/3 mL solution for nebulization 1.25 mg (3 mL) inhalation Q4H #90 mL 06/30/22 [Rx Last Taken Unknown] albuterol sulfate 90 mcg/actuation aerosol inhaler (Ventolin HFA) 2 puff inhalation Q6H PRN shortness of breath or wheezing #25.5 grams 06/30/22 [Rx Last Taken Unknown] levofloxacin 500 mg tablet 500 mg PO DAILY #10 tabs 07/21/22 [Rx Last Taken Unknown] acetaminophen 300 mg-codeine 15 mg tablet 1 tab PO Q8H PRN cough #20 tabs 07/23/22 [Rx Last Taken Unknown] ipratropium 0.5 mg-albuterol 3 mg (2.5 mg base)/3 mL nebulization soln 3 ml inhalation Q4H PRN shortness of breath or wheezing #180 mL 07/24/22 [Rx Last Taken Unknown] prednisone 20 mg tablet 60 mg PO DAILY #15 TABLETS 07/30/22 [Rx Last Taken Unknown] Allergy/AdvReac Type Severity Reaction Status Date / Time No Known Allergies Allergy Verified 07/30/22 14:54 Family History Mother CVA (cerebral vascular accident) Brother CAD (coronary artery disease) Sister CAD (coronary artery disease) Myocardial infarction Son CAD (coronary artery disease) Surgical History History of appendectomy History of bladder suspension procedure History of cataract surgery History of hernia repair History of hip surgery History of hysterectomy History of repair of hiatal hernia History of thyroidectomy History of tubal ligation S/P right rotator cuff repair Social History household members: significant other Smoking Status: Never smoker alcohol intake: never substance use type: does not use caffeine: No what type of physical activity do you participate in: other details: [employer] [facility] ED Constitutional Constitutional ED: Reports chills, fever(s) and other Details: Documented temperature of 100.9 yesterday or the day before ; Denies sweats or weight loss Eyes Eyes: Denies blurry vision, change in vision or diplopia ENT ENT ED: Denies ear pain, rhinorrhea or sore throat Cardiovascular Cardiovascular: Denies chest pain, orthopnea, palpitations, paroxysmal nocturnaldyspnea or racing heartbeat Respiratory/Chest Respiratory/Chest: Reports cough, dyspnea and dyspnea on exertion; Denies orthopnea or paroxysmal nocturnal dyspnea Gastrointestinal Gastrointestinal: Denies abdominal pain, constipation, diarrhea, nausea or vomiting Genitourinary Genitourinary ED: Reports dysuria; Denies hematuria or urinary frequency Musculoskeletal Musculoskeletal: Denies arthralgias, back pain, myalgias or neck pain Integumentary Denies abscess, Abrasions or rash Neurologic Neurologic: Reports weakness; Denies headache(s) or paresthesias Psychiatric Psychiatric: Reports anxiety Hematologic/Lymphatic Hematologic/Lymphatic: Denies easy bleeding or easy bruising EXAM Physical Exam Const Vital Signs: 07/30/22 14:50 07/30/22 14:55 07/30/22 14:55 Temperature 100 F H Temperature Source Temporal Pulse Rate 18 L Respiratory Rate 20 H Respiratory Effort Normal Non-Labored Respiratory Depth Normal Respiratory Pattern Normal Blood Pressure 164/95 H Blood Pressure Mean 118 Pulse Ox 95 96 Oxygen Delivery Method Room Air Room Air Room Air 07/30/22 15:14 Temperature Temperature Source Pulse Rate 110 H Respiratory Rate 18 Respiratory Effort Respiratory Depth Respiratory Pattern Normal Blood Pressure Blood Pressure Mean Pulse Ox Oxygen Delivery Method Positive well nourished and well developed General Appearance ED: well developed and NAD; Negative for pallor HEENT Reports moist mucous membranes HEENT Narrative: Ears are normal. Nares patent with slight clear drainage. Posterior pharynx out erythema or exudate. atraumatic Eyes PERRL and EOMs intact bilaterally General Eye ED: Negative for pale conjunctiva or scleral icterus Neck no lymphadenopathy, supple, no meningeal signs and no JVD Resp normal respiratory effort and No clear to auscultation bilaterally Auscultation: wheezes expiratory wheezes, scattered wheezes and throughout Cardio no murmurs Rate: tachycardic Rhythm: abnormal rhythm irregularly irregular GI non-tender, non-distended and no masses Palpation: soft Back/Spine no CVA tenderness and normal to inspection Extremity normal to inspection General Extremety ED: Negative for edema or tenderness General Extremity: Negative for edema Neuro oriented x3, CN's II-XII intact bilaterally and no sensory deficits noted [place] Coma Scale: document GCS findings Spontaneous Obeys Commands Oriented 15 Sensorium / Orientation: alert Psych mental status grossly normal Skin no wounds and No skin turgor normal General Skin Exam: Negative for jaundice or pallor Lesions: no lesions Rashes: no rashes MDM MDM MDM Narrative Medical decision making narrative: Triage note was reviewed. 2 ER notes from last week were reviewed. The physician documented that patient has poor understanding of her illness. Patient very vague and difficult to obtain history from. Went attempting to pinpoint onset temperature etc. there was difficulty. Since patient was diagnosed with pneumonia on CAT scan last week on antibiotics and reports symptoms are worse a repeat x-ray was obtained. The x-ray reveals chronic changes. It is unchanged from the x-ray that was obtained on the . Since patient is not tachypneic, not hypoxic and she recently had a CAT scan andblood work these were not repeated. She did have an EKG because her heart rate was fast. Patient was treated with DuoNeb and albuterol. Radiography Chest X-Ray - ED: 2 View and Read by ED Physician (Cardiac silhouette and size are unremarkable. There is slight hyperaeration with chronic changes. There isno infiltrate noted. Perihilar area is unremarkable. Osseous structures are unremarkable. This was in the viewed interpreted by me.) Diagnostic Testing: Clinical Impression(s) from Imaging Studies Chest X-Ray 07/30/22 15:20 IMPRESSION: No acute findings in the chest. Electronically Signed: Jean Farrell MD at 15:52 EDT , EKG Initial EKG: Attestation: I personally reviewed and interpreted this EKG as follows: Interpretation: Atrial Fibrillation (Rate is 111. QRS duration 132,000,000 seconds. Morphology is consistent with right bundle branch block. QT interval 360 ms. Hoffman is to the left. There is no ischemic changes. There is repolarization changes because of the bundle branch block.) Differential Diagnosis Chest pain/SOB: pulmonary embolism Reason(s) PE less likely: Positive for not hypoxic, patient taking oral anticoagulants and Other (Recent CTA for PE negative.), ACS ACS: Positive for EKG without ischemia and history not suggestive of ischemia pain, pneumothorax Reason(s) pneumothorax less likely: Positivefor bilateral breath sounds and W[employer] J[employer] withhout PTX, aortic dissection Reason(s) Aortic dissection less likely:: Positive for other (Recent CTA which revealed noabnormality of the aorta.) and CHF Reason(s) CHF less likely: Positive for no significant peripheral edema, no orthopnea and no evidence of fluid overload on CXR Treatment and Re-Evaluation :: There has been a delay in patient's care. The person with the patient is upset. Patient Guilherme was informed that it is busy and unfortunately there were other patients that were sicker requiring more intensive care and led to delay. Ambulatory pulse ox was obtained. Amatory pulse ox is 93%. Since patient's vitals are unremarkable other than a heart rate of 100 and and 1 on the monitor a unremarkable chest x-ray with improvement after treatment plan is to dischargeto home. Since this is the third visit in 7 days and she has history of COPD will place on a burst of prednisone. Discharge Plan Triage Chief Complaint: Shortness of Breath ED Provider: Guanako Chan Dx/Rx/DC Orders Clinical Impression: Acute exacerbation of chronic obstructive pulmonary disease, Atherosclerotic heart disease of [place] coronary artery without angina pectoris, Acute bronchospasm, Atrial fibrillation, persistent, Anticoagulant long-term use Instructions: ED COPD Flare Prescriptions: New prednisone 20 mg tablet 60 mg PO DAILY Qty: 15 0RF No Action ascorbic acid (vitamin C) 500 mg tablet 500 mg PO QDAY apixaban 2.5 mg tablet 2.5 mg PO BID Qty: 180 3RF metoprolol tartrate 50 mg tablet 50 mg PO QHS Qty: 90 3RF Rx Instructions: at bedtime lysine 500 mg tablet 500 mg PO DAILY (DME) nebulizer See Rx Instructions .Route .MEDSUPPLY Qty: 1 0RF Rx Instructions: As directed pregabalin 25 mg capsule 50 mg PO BID albuterol sulfate [Ventolin HFA] 90 mcg/actuation HFA aerosol inhaler 2 puff INHALATION Q6H PRN (Reason: shortness of breath or wheezing) Qty: 25.51RF Rx Instructions: administer with spacer levofloxacin 500 mg tablet 500 mg PO DAILY Qty: 10 0RF multivitamin 1 EACH tablet 1 tab PO DAILY sennosides-docusate sodium [Stool Softener-Stimulant Laxat] 8.6-50 mg Tablet 2 tab PO BID Qty: 0 0RF acetaminophen 500 mg Tablet 1,000 mg PO Q8 Qty: 0 0RF acetaminophen-codeine 300-15 mg tablet 1 tab PO Q8H PRN (Reason: cough) Qty: 20 0RF ipratropium-albuterol 0.5 mg-3 mg(2.5 mg base)/3 mL solution for nebulization 3 ml inhalation Q4H PRN (Reason: shortness of breath or wheezing) Qty: 180 0RF (DME) inhalational spacing device Spacer See Rx Instructions .ROUTE .MEDSUPPLY Qty: 1 0RF Rx Instructions: As directed levothyroxine 137 mcg tablet 137 mcg PO QDAY Qty: 90 1RF omeprazole 40 mg capsule,delayed release(DR/EC) 40 mg PO DAILY Qty: 90 1RF atorvastatin 20 mg tablet See Rx Instructions .ROUTE .COMPLEX Qty: 90 3RF Dose Instruction: TAKE 1 TABLET DAILY Rx Instructions: TAKE 1 TABLET DAILY losartan 25 mg tablet See Rx Instructions .ROUTE .COMPLEX Qty: 90 3RF Dose Instruction: TAKE 1 TABLET DAILY Rx Instructions: TAKE 1 TABLET DAILY amlodipine 5 mg tablet See Rx Instructions .ROUTE .COMPLEX Qty: 90 3RF Dose Instruction: TAKE 1 TABLET DAILY Rx Instructions: TAKE 1 TABLET DAILY albuterol sulfate 1.25 mg/3 mL solution for nebulization 1.25 mg inhalation Q4H Qty: 90 1RF Primary Care Provider: Mely Epperson Referrals: Mely Epperson, DO [Primary Care Provider] - 3-5 Days Disposition Disposition: Home, Self Care What to do if you have Problems For any increased pain, shortness of breath, bleeding, nausea or vomiting, chestpain, or any unexpected problems, contact your Primary Care Provider. Call [facility] ([phone]) or report to the closest Emergency Room. Call 911 if necessary. 07/30/221939 <Electronically signed by Guanako Chan MD> Cosigner Signature (if applicable): CC: Dr. Mely Epperson, DO ~ Signed [facility] Work Phone: 1(767) 681-954307-14-2022 Miscellaneous Notes* Telephone Encounter - Anais Martínez - 11/13/2021 10:19 AM EDT Maria Esther Finney's daughter Marlen called. She called to cancel her mother's appointment this Wednesday11/17/21. We were planning to see her and proceed with scheduling her hernia surgery that had been scheduled previously (in winter) but then was canceled by the hospital due to covid protocol. Unfortunately, this will need to be put off further now because aMria Esther fell last night and broke her hip. They will call when she is recovered and ready to proceed. [facility] NoteHNO ID: [id number] Author: Edwina Tovar APRN.OMAYRA Service: Anesthesiology Author Type: Nurse Practitioner Type: Progress Notes Filed: 04/30/2021 1:34 PM Note Text: No show pst 04/30/21 [facility] NoteHNO ID: [id number] Author: Murali Maddox MD Service: ? Author Type: Physician Type: Progress Notes Filed: 02/11/2021 3:30 PM Note Text: Maria Esther Finney is a 80 year old female who [...] which included preparing to see the patient, [id number] patient care, completing clinical documentation, performing a medically appropriate examination, counseling and educating the patient/family/caregiver, ordering medications, tests, or procedures, communicating with other HCPs (not separately reported), communicating results to the patient/family/caregiver and care coordination (not separately reported). Murali Maddox M.D., F.A.C.S.[facility]09-13-2021 Note HNO ID: [id number] Author: Murali Maddox MD Service: ? Author Type: Physician Type: Progress Notes Filed: 01/13/2021 2:24 PM Note Text: Maria Esther Finney is a 80 year old female who [...] which included preparing to see the patient, [id number] patient care, completing clinical documentation, performing a medically appropriate examination, counseling and educating the patient/family/caregiver, ordering medications, tests, or procedures and communicating with other HCPs (not separately reported). Murali Maddox M.D., F.A.C.S.[facility]07-27-2021 Note HNO ID: [id number] Author: Murali Maddox MD Service: ? Author Type: Physician Type: Progress Notes Filed: 11/26/2020 9:06 AM Note Text: Maria Esther Finney is a 80 year old female who [...] which included preparing to see the patient, [id number] patient care, completing clinical documentation, performing a medically appropriate examination and counseling and educating the patient/family/caregiver. Murali Maddox M.D., F.A.C.S.[facility]10-30-2018 History of Past illness Narrative* Problem Noted Date Resolved Date Hiatal hernia 03/01/2018 05/27/2018 Overview: Added automatically from request for surgery [id number] documented as of this encounter (statuses as of 11/13/2021) [facility]set Date Resolution Status Peripheral neuropathy acute Bronchitis acute [place] eye disease of left eye acute Fatigue acute Unspecified atrial fibrillation acute Hypothyroidism chronic [facility] Work Phone: Evaluation note* Diagnosis Onset Date Resolution Status Peripheral neuropathy acute Essential (primary) hypertension acute Atherosclerotic heart diseas e of [place] coronary artery without angina pectoris chronic Pure hypercholesterolemia ch ronic Peripheral neuropathy acute [place] noneactive Abnormal brain CT acute Atrial fibrillation acute Closed right hip fracture ac [place] Hyperglycemia acute Hypokalemia acute Leukocytosis acute Peripheral neuropathy acute Pre-operative cardiovascular examination acute [facility] Work Phone: Evaluation note* Diagnosis Onset Date Resolution Status Peripheral neuropathy acute Essential (primary) hypertension acute Atherosclerotic heart diseas e of [place] coronary artery without angina pectoris chronic Pure hypercholesterolemia ch ronic Peripheral neuropathy acute [place] noneactive Abnormal brain CT acute Abnormal x-ray acute Atrial fibrillation acute Closed right hip fracture ac [place] History of right hip hemiarthroplasty acute Peripheral neuropathy acute Pre-operative cardiovascular examination acute Leukocytosis resolved [facility] Work Phone: Evaluation note* Diagnosis Onset Date Resolution Status Essential (primary) hypertension acute Atherosclerotic heart diseas e of [place] coronary artery without angina pectoris chronic Pure hypercholesterolemia ch ronic Peripheral neuropathy acute [place] noneactive Abnormal brain CT acute Abnormal x-ray acute Atrial fibrillation acute History of right hip hemiarthroplasty acute Peripheral neuropathy acute Closed right hip fracture re solved Leukocytosis resolved Pre-operative cardiovascular examination resolved Peripheral neuropathy acute Edema of right lower extremity noneactive Status post right hip replacement noneactive Falls frequently noneactive [facility] Work Phone: Evaluation note* Diagnosis Onset Date Resolution Status Essential (primary) hypertension acute Atherosclerotic heart diseas e of [place] coronary artery without angina pectoris chronic Pure hypercholesterolemia ch ronic Peripheral neuropathy acute [place] noneactive Abnormal brain CT acute Abnormal x-ray acute Atrial fibrillation acute History of right hip hemiarthroplasty acute Peripheral neuropathy acute Closed right hip fracture re solved Leukocytosis resolved Pre-operative cardiovascular examination resolved Peripheral neuropathy acute Edema of right lower extremity noneactive Status post right hip replacement noneactive [place] frequently noneactive UTI (urinary tract infection) acute [facility] Work Phone: Evaluation note* Diagnosis Onset Date Resolution Status Essential (primary) hypertension acute Atherosclerotic heart diseas e of [place] coronary artery without angina pectoris chronic Pure hypercholesterolemia ch ronic Peripheral neuropathy acute [place] noneactive Abnormal brain CT acute Abnormal x-ray acute Atrial fibrillation acute History of right hip hemiarthroplasty acute Peripheral neuropathy acute Closed right hip fracture re solved Leukocytosis resolved Pre-operative cardiovascular examination resolved Peripheral neuropathy acute Edema of right lower extremity noneactive Status post right hip replacement noneactive [place] frequently noneactive UTI (urinary tract infection) acute Benign meningioma of brain a cute History of right hip hemiarthroplasty acute Peripheral neuropathy acute UTI (urinary tract infection) acute COPD (chronic obstructive pulmonary disease) chronic [facility] Work Phone: Evaluation note* Diagnosis Onset Date Resolution Status UTI (urinary tract infection) acute Benign meningioma of brain a cute History of right hip hemiarthroplasty acute Peripheral neuropathy acute UTI (urinary tract infection) acute COPD (chronic obstructive pulmonary disease) chronic [facility] Work Phone: Evaluation note* Diagnosis Onset Date Resolution Status Benign meningioma of brain a cute History of right hip hemiarthroplasty acute Peripheral neuropathy acute COPD (chronic obstructive pulmonary disease) chronic UTI (urinary tract infection) resolved UTI (urinary tract infection) resolved Benign meningioma of brain a cute Essential (primary) hypertension acute Peripheral neuropathy acute UTI (urinary tract infection) resolved Essential (primary) hypertension acute Atherosclerotic heart diseas e of [place] coronary artery without angina pectoris chronic [facility] Work Phone: Evaluation note* Diagnosis Onset Date Resolution Status UTI (urinary tract infection) resolved Benign meningioma of brain a cute Essential (primary) hypertension acute Peripheral neuropathy acute UTI (urinary tract infection) resolved Essential (primary) hypertension acute Atherosclerotic heart diseas e of [place] coronary artery without angina pectoris chronic Pure hypercholesterolemia ch ronic Acute bronchitis acute Dysuria noneactive [facility] Work Phone: Evaluation note* Diagnosis Onset Date Resolution Status UTI (urinary tract infection) resolved Benign meningioma of brain a cute Essential (primary) hypertension acute Peripheral neuropathy acute UTI (urinary tract infection) resolved Essential (primary) hypertension acute Atherosclerotic heart diseas e of [place] coronary artery without angina pectoris chronic Pure hypercholesterolemia ch ronic Acute bronchitis acute Dysuria noneactive Acute bronchitis acute COPD (chronic obstructive pulmonary disease) chronic [facility] Work Phone: Evaluation note* Diagnosis Onset Date Resolution Status COPD (chronic obstructive pulmonary disease) chronic Acute bronchitis resolved Atrial fibrillation acute Benign meningioma of brain a cute Essential (primary) hypertension acute Acute bronchitis resolved [facility] Work Phone: Evaluation note* Diagnosis Onset Date Resolution Status COPD (chronic obstructive pulmonary disease) chronic Acute bronchitis resolved Atrial fibrillation acute Benign meningioma of brain a cute Essential (primary) hypertension acute Acute bronchitis resolved Atrial fibrillation acute Benign meningioma of brain a cute COPD (chronic obstructive pulmonary disease) chronic UTI (urinary tract infection) resolved [facility] Work Phone: Evaluation note* Diagnosis Onset Date Resolution Status Atrial fibrillation acute Benign meningioma of brain a cute COPD (chronic obstructive pulmonary disease) chronic UTI (urinary tract infection) resolved Essential (primary) hypertension acute Atherosclerotic heart diseas e of [place] coronary artery without angina pectoris chronic Pure hypercholesterolemia [place] Unspecified atrial fibrillation chronic Valvular heart disease chron ic [facility] Work Phone: Evaluation note* Diagnosis Onset Date Resolution Status Essential (primary) hypertension acute UTI (urinary tract infection) acute Unspecified atrial fibrillation chronic UTI (urinary tract infection) acute Atrial fibrillation acute UTI (urinary tract infection) acute COVID-19 acute [facility] Work Phone: Evaluation note* Diagnosis Onset Date Resolution Status Essential (primary) hypertension acute UTI (urinary tract infection) acute Unspecified atrial fibrillation chronic UTI (urinary tract infection) acute Atrial fibrillation acute UTI (urinary tract infection) acute COVID-19 acute Atrial fibrillation acute On continuous oral anticoagulation acute Atherosclerotic heart diseas e of [place] coronary artery without angina pectoris chronic Pure hypercholesterolemia [facility] Work Phone: Hospital Discharge instructions Additional Instructions Please return if your symptoms change or worsen. Please complete entire antibiotic course. Please call your primary care physician for outpatient follow-up and reevaluation. [facility] Work Phone: Hospital Discharge instructions Additional Instructions Please continue take your antibiotics as prescribed. Please return if you develop worsening shortness of breath or if your symptoms change or worsen in any way. Please use home breathing treatments as prescribed for further improvement in symptomsWTriHealth [facility] Work Phone: Hospital Discharge instructions Additional Instructions Ultrasound right leg negative for blood clots. Blood pressure elevated 202/90. You are asymptomatic. Take your blood pressure medicine keep your follow-up with your cardiology team tomorrow for reevaluation and medication adjustments. Take your antibiotic prescribed by [facility] today for urinary tract infection.[facility] Work Phone: Reason for referral (narrative)No reason for referral information availableWTriHealth [facility] Work Phone: Summary Purpose Family History No Family History Records Found Relationship Condition Age at Onset Recorded Date/T brynn mother Cerebrovascular accident (CVA) Unknown brother Coronary artery disease Unknown sister Coronary artery disease Unknown Myocardial infarction Unknown son Coronary artery disease Unknown Advance Directives No Advanced Directives Records Found Advance Directive Response Recorded Date/ Time Living Will No October 28, 2020 9:33am Power of Field Auditor No October 28 9:33am Documents on File Type Date Recorded Patient Data Security Administrator Expl anation Advance Directive(s) 05/26/2018 9:52 AM Advance Directive(s) 05/12/2018 9:34 AM Advance Directive(s) 02/16/2018 12:06 PM Advance Directive Response Recorded Date/ Time Living Will No November 13, 2021 8:00am Power of Field Auditor No November 13 8:00am Advance Directive Response Recorded Date/ Time Name of Medical Power of Field Auditor MARLEN STAPLES, DAUGHTER January 17, 2022 3:04pm Living Will No January 17, 2022 3:04pm Power of Field Auditor Yes January 3:04pm Advance Directive Response Recorded Date/ Time Name of Medical Power of Field Auditor MARLEN STAPLES, DAUGHTER January 17, 2022 2:04pm Living Will No January 17, 2022 2:04pm Power of Field Auditor Yes January 2:04pm Advance Directive Response Recorded Date/ Time Living Will No January 17, 2022 2:04pm Power of Field Auditor Yes January 2:04pm Advance Directive Response Recorded Date/ Time Living Will No January 17, 2022 3:04pm Power of Field Auditor Yes January 3:04pm Advance Directive Response Recorded Date/ Time Living Will No July 24, 2022 6:50am Power of Field Auditor No July 24 6:50am Advance Directive Response Recorded Date/ Time Living Will No July 30, 2022 2:56pm Power of Field Auditor No July 30 2:56pm Advance Directive Response Recorded Date/ Time Living Will No July 30, 2022 1:56pm Power of Field Auditor No July 30 1:56pm Advance Directive Response Recorded Date/ Time Living Will No July 30, 2022 2:56pm Do you have a Healthcare Power of Field Auditor? No July 30, 2022 2:56pm Advance Directive Response Recorded Date/ Time Living Will No July 30, 2022 2:56pm Do you have a Healthcare Power of Field Auditor? No July 30, 2022 2:56pm Do you have a Healthcare Power of Field Auditor? No September 19, 2024 6:34pm Advance Directive Response Recorded Date/ Time Do you have a Healthcare Power of Field Auditor? No September 19, 2024 6:34pm Chief Complaint and Reason for Visit Chief Complaint 3 M FU COLD 2 M FU Reason for Visit Peripheral neuropath y Bronchitis [place] eye disease of left eye Fatigue Unspecified atrial fibrillation Hypothyroidism Chief Complaint 3 M FU COLD 2 M FU 6 M FU PROBLEMS WITH LEGS FALL R HIP FRACTURE, FALL R HIP FRACTURE, FALL R HIP FRACTURE, FALL Reason for Visit Peripheral neuropath y Essential (primary) hypertension Atherosclerotic heart disease of [place] coronary artery without angina pectoris Pure hypercholesterolemia Peripheral neuropathy [place] Abnormal brain CT Atrial fibrillation Closed right hip fracture Hyperglycemia Hypokalemia Leukocytosis Peripheral neuropathy Pre-operative cardiovascular examination Chief Complaint 3 M FU COLD 2 M FU 6 M FU PROBLEMS WITH LEGS FALL R HIP FRACTURE, FALL R HIP FRACTURE, FALL R HIP FRACTURE, FALL R HIP FRACTURE, FALL R HIP FRACTURE, FALL R HIP FRACTURE, FALL R HIP FRACTURE, FALL Reason for Visit Peripheral neuropath y Essential (primary) hypertension Atherosclerotic heart disease of [place] coronary artery without angina pectoris Pure hypercholesterolemia Peripheral neuropathy [place] Abnormal brain CT Abnormal x-ray Atrial fibrillation Closed right hip fracture History of right hip hemiarthroplasty Peripheral neuropathy Pre-operative cardiovascular examination Leukocytosis Chief Complaint 2 M FU 6 M FU PROBLEMS WITH LEGS FALL R HIP FRACTURE, FALL R HIP FRACTURE, FALL R HIP FRACTURE, FALL R HIP FRACTURE, FALL R HIP FRACTURE, FALL R HIP FRACTURE, FALL R HIP FRACTURE, FALL FU FROM RESIDENTIAL STAY PAIN IN RIGHT LOWER LEG Reason for Visit Essential (primary) hypertension Atherosclerotic heart disease of [place] coronary artery without angina pectoris Pure hypercholesterolemia Peripheral neuropathy [place] Abnormal brain CT Abnormal x-ray Atrial fibrillation History of right hip hemiarthroplasty Peripheral neuropathy Closed right hip fracture Leukocytosis Pre-operative cardiovascular examination Peripheral neuropathy Edema of right lower extremity Status post right hip replacement [place] frequently Chief Complaint 6 M FU PROBLEMS WITH LEGS FALL R HIP FRACTURE, FALL R HIP FRACTURE, FALL R HIP FRACTURE, FALL R HIP FRACTURE, FALL R HIP FRACTURE, FALL R HIP FRACTURE, FALL R HIP FRACTURE, FALL FU FROM RESIDENTIAL STAY PAIN IN RIGHT LOWER LEG RT OTTO. RX HERE Reason for Visit Essential (primary) hypertension Atherosclerotic heart disease of [place] coronary artery without angina pectoris Pure hypercholesterolemia Peripheral neuropathy [place] Abnormal brain CT Abnormal x-ray Atrial fibrillation History of right hip hemiarthroplasty Peripheral neuropathy Closed right hip fracture Leukocytosis Pre-operative cardiovascular examination Peripheral neuropathy Edema of right lower extremity Status post right hip replacement [place] frequently Chief Complaint 6 M FU PROBLEMS WITH LEGS FALL R HIP FRACTURE, FALL R HIP FRACTURE, FALL R HIP FRACTURE, FALL R HIP FRACTURE, FALL R HIP FRACTURE, FALL R HIP FRACTURE, FALL R HIP FRACTURE, FALL FU FROM RESIDENTIAL STAY PAIN IN RIGHT LOWER LEG RT OTTO. RX HERE HIP PAIN Reason for Visit Essential (primary) hypertension Atherosclerotic heart disease of [place] coronary artery without angina pectoris Pure hypercholesterolemia Peripheral neuropathy [place] Abnormal brain CT Abnormal x-ray Atrial fibrillation History of right hip hemiarthroplasty Peripheral neuropathy Closed right hip fracture Leukocytosis Pre-operative cardiovascular examination Peripheral neuropathy Edema of right lower extremity Status post right hip replacement [place] frequently Chief Complaint 6 M FU PROBLEMS WITH LEGS FALL R HIP FRACTURE, FALL R HIP FRACTURE, FALL R HIP FRACTURE, FALL R HIP FRACTURE, FALL R HIP FRACTURE, FALL R HIP FRACTURE, FALL R HIP FRACTURE, FALL FU FROM RESIDENTIAL STAY PAIN IN RIGHT LOWER LEG HIP PAIN CONCERN FOR UTI RT OTTO. RX HERE Reason for Visit Essential (primary) hypertension Atherosclerotic heart disease of [place] coronary artery without angina pectoris Pure hypercholesterolemia Peripheral neuropathy [place] Abnormal brain CT Abnormal x-ray Atrial fibrillation History of right hip hemiarthroplasty Peripheral neuropathy Closed right hip fracture Leukocytosis Pre-operative cardiovascular examination Peripheral neuropathy Edema of right lower extremity Status post right hip replacement [place] frequently UTI (urinary tract infection) Chief Complaint 6 M FU PROBLEMS WITH LEGS FALL R HIP FRACTURE, FALL R HIP FRACTURE, FALL R HIP FRACTURE, FALL R HIP FRACTURE, FALL R HIP FRACTURE, FALL R HIP FRACTURE, FALL R HIP FRACTURE, FALL FU FROM RESIDENTIAL STAY PAIN IN RIGHT LOWER LEG HIP PAIN CONCERN FOR UTI 3 M FU RT OTTO. RX HERE Reason for Visit Essential (primary) hypertension Atherosclerotic heart disease of [place] coronary artery without angina pectoris Pure hypercholesterolemia Peripheral neuropathy [place] Abnormal brain CT Abnormal x-ray Atrial fibrillation History of right hip hemiarthroplasty Peripheral neuropathy Closed right hip fracture Leukocytosis Pre-operative cardiovascular examination Peripheral neuropathy Edema of right lower extremity Status post right hip replacement [place] frequently UTI (urinary tract infection) Benign meningioma of brain History of right hip hemiarthroplasty Peripheral neuropathy UTI (urinary tract infection) COPD (chronic obstructive pulmonary disease) Chief Complaint HIP PAIN CONCERN FOR UTI 3 M FU RT OTTO. RX HERE Reason for Visit UTI (urinary tract i nfection) Benign meningioma of brain History of right hip hemiarthroplasty Peripheral neuropathy UTI (urinary tract infection) COPD (chronic obstructive pulmonary disease) Chief Complaint 3 M FU RT OTTO. RX HERE 3 M FU week fu 6 M FU Reason for Visit Benign meningioma of brain History of right hip hemiarthroplasty Peripheral neuropathy COPD (chronic obstructive pulmonary disease) UTI (urinary tract infection) UTI (urinary tract infection) Benign meningioma of brain Essential (primary) hypertension Peripheral neuropathy UTI (urinary tract infection) Essential (primary) hypertension Atherosclerotic heart disease of [place] coronary artery without angina pectoris Pure hypercholesterolemia Chief Complaint 3 M FU week fu 6 M FU bad cough, possible uti EORDER- cough Reason for Visit UTI (urinary tract i nfection) Benign meningioma of brain Essential (primary) hypertension Peripheral neuropathy UTI (urinary tract infection) Essential (primary) hypertension Atherosclerotic heart disease of [place] coronary artery without angina pectoris Pure hypercholesterolemia Acute bronchitis Dysuria Chief Complaint 3 M FU week fu 6 M FU bad cough, possible uti EORDER- cough COUGH/CONGESTION/WHEEZING XRAY SOB Reason for Visit UTI (urinary tract i nfection) Benign meningioma of brain Essential (primary) hypertension Peripheral neuropathy UTI (urinary tract infection) Essential (primary) hypertension Atherosclerotic heart disease of [place] coronary artery without angina pectoris Pure hypercholesterolemia Acute bronchitis Dysuria Acute bronchitis COPD (chronic obstructive pulmonary disease) Chief Complaint 3 M FU week fu 6 M FU bad cough, possible uti EORDER- cough COUGH/CONGESTION/WHEEZING XRAY SOB SOB Reason for Visit UTI (urinary tract i nfection) Benign meningioma of brain Essential (primary) hypertension Peripheral neuropathy UTI (urinary tract infection) Essential (primary) hypertension Atherosclerotic heart disease of [place] coronary artery without angina pectoris Pure hypercholesterolemia Acute bronchitis Dysuria Acute bronchitis COPD (chronic obstructive pulmonary disease) Chief Complaint 3 M FU week fu 6 M FU bad cough, possible uti EORDER- cough COUGH/CONGESTION/WHEEZING XRAY SOB SOB SOB Reason for Visit UTI (urinary tract i nfection) Benign meningioma of brain Essential (primary) hypertension Peripheral neuropathy UTI (urinary tract infection) Essential (primary) hypertension Atherosclerotic heart disease of [place] coronary artery without angina pectoris Pure hypercholesterolemia Acute bronchitis Dysuria Acute bronchitis COPD (chronic obstructive pulmonary disease) Chief Complaint COUGH/CONGESTION/WHE EZING XRAY SOB SOB SOB 3 m fu Benign neoplasm of cerebral meninges Reason for Visit COPD (chronic obstru ctive pulmonary disease) Acute bronchitis Atrial fibrillation Benign meningioma of brain Essential (primary) hypertension Acute bronchitis Chief Complaint COUGH/CONGESTION/WHE EZING XRAY SOB SOB SOB 3 m fu Benign neoplasm of cerebral meninges 3 m fu Reason for Visit COPD (chronic obstru ctive pulmonary disease) Acute bronchitis Atrial fibrillation Benign meningioma of brain Essential (primary) hypertension Acute bronchitis Atrial fibrillation Benign meningioma of brain COPD (chronic obstructive pulmonary disease) UTI (urinary tract infection) Chief Complaint Benign neoplasm of c erebral meninges 3 m fu 1 Y FU/ PREV PFM Reason for Visit Atrial fibrillation Benign meningioma of brain COPD (chronic obstructive pulmonary disease) UTI (urinary tract infection) Essential (primary) hypertension Atherosclerotic heart disease of [place] coronary artery without angina pectoris Pure hypercholesterolemia Unspecified atrial fibrillation Valvular heart disease Chief Complaint 3 M FU Urinary tract infection REOCCURRING UTI SORE THROAT, POSITIVE HOME COVID TEST URINARY RETENTION Reason for Visit Essential (primary) hypertension UTI (urinary tract infection) Unspecified atrial fibrillation UTI (urinary tract infection) Atrial fibrillation UTI (urinary tract infection) COVID-19 Chief Complaint 3 M FU Urinary tract infection REOCCURRING UTI SORE THROAT, POSITIVE HOME COVID TEST URINARY RETENTION 6 M FU E ORDERS Reason for Visit Essential (primary) hypertension UTI (urinary tract infection) Unspecified atrial fibrillation UTI (urinary tract infection) Atrial fibrillation UTI (urinary tract infection) COVID-19 Atrial fibrillation On continuous oral anticoagulation Atherosclerotic heart disease of [place] coronary artery without angina pectoris Pure hypercholesterolemia Chief Complaint Admit Date 4 M FU June 14, 2024 1:19pm LEFT HAND June 28, 2024 1:23pm SWOLLEN RT LEG/TROUBLE WALKING August 2:15pm E-ORDER August 24, 2024 2:5 2pm R knee injection September 06, 2024 1:49pm CONCERN FOR UTI September 19, 2024 2:49p m Reason for Visit Admit Date Orthostatic lightheadedness June 1:19pm Peripheral neuropathy June 14 1:19pm Trigger finger of left hand June 1:19pm UTI symptoms June 14, 2024 1:19pm Atrial fibrillation June 14, 2024 1:19pm On continuous oral anticoagulation Febru nina 2024 1:19pm Trigger finger, left ring finger Februar y 2024 1:23pm Leg pain, anterior August 02, 2024 2:15 pm Primary osteoarthritis of right knee September 06, 2024 1:49pm Chief Complaint Admit Date 4 M FU June 14, 2024 1:19pm LEFT HAND June 28, 2024 1:23pm SWOLLEN RT LEG/TROUBLE WALKING August 2:15pm E-ORDER August 24, 2024 2:5 2pm R knee injection September 06, 2024 1:49pm CONCERN FOR UTI September 19, 2024 2:49p m lower extremity September 19, 2024 3:21p m Chief Complaint Admit Date 4 M FU June 14, 2024 1:19pm LEFT HAND June 28, 2024 1:23pm SWOLLEN RT LEG/TROUBLE WALKING August 2:15pm E-ORDER August 24, 2024 2:5 2pm R knee injection September 06, 2024 1:49pm CONCERN FOR UTI September 19, 2024 2:49p m lower extremity September 19, 2024 3:21p m 6 M FU September 20, 2024 1:22p m Reason for Visit Admit Date Orthostatic lightheadedness June 1:19pm Peripheral neuropathy June 14 1:19pm Trigger finger of left hand June 1:19pm UTI symptoms June 14, 2024 1:19pm Atrial fibrillation June 14, 2024 1:19pm On continuous oral anticoagulation [email or web address] 1:19pm Trigger finger, left ring finger uar y 2024 1:23pm Leg pain, anterior August 02, 2024 2:15 pm Primary osteoarthritis of right knee September 06, 2024 1:49pm Atrial fibrillation September 20, 2024 1:22p m Elevated blood pressure read ing in office with diagnosis of hypertension September 20, 2024 1:22pm Right leg swelling September 20, 2024 1:22p m Chief Complaint Admit Date 4 M FU June 14, 2024 1:19pm LEFT HAND June 28, 2024 1:23pm SWOLLEN RT LEG/TROUBLE WALKING August 2:15pm E-ORDER August 24, 2024 2:5 2pm R knee injection September 06, 2024 1:49pm CONCERN FOR UTI September 19, 2024 2:49p m lower extremity September 19, 2024 3:21p m RLE PAIN September 19, 2024 4:03p m 6 M FU September 20, 2024 1:22p m 4 M FU October 11, 2024 12:5 2pm Reason for Visit Admit Date Orthostatic lightheadedness June 1:19pm Peripheral neuropathy June 14 1:19pm Trigger finger of left hand June 1:19pm UTI symptoms June 14, 2024 1:19pm Atrial fibrillation June 14, 2024 1:19pm On continuous oral anticoagulation Febru nina 2024 1:19pm Trigger finger, left ring finger Februar y 2024 1:23pm Leg pain, anterior August 02, 2024 2:15 pm Primary osteoarthritis of right knee September 06, 2024 1:49pm Atrial fibrillation September 20, 2024 1:22p m Elevated blood pressure read ing in office with diagnosis of hypertension September 20, 2024 1:22pm Right leg swelling September 20, 2024 1:22p m Primary osteoarthritis of right knee Yannick e 2024 12:52pm UTI symptoms October 11, 2024 12:5 2pm Venous insufficiency of right leg October [id number] 12:52pm On continuous oral anticoagulation October 11, 2024 12:52pm Unspecified atrial fibrillation October 12:52pm Chief Complaint Admit Date LEFT HAND June 28, 2024 1:23pm SWOLLEN RT LEG/TROUBLE WALKING August 2:15pm E-ORDER August 24, 2024 2:5 2pm R knee injection September 06, 2024 1:49pm CONCERN FOR UTI September 19, 2024 2:49p m lower extremity September 19, 2024 3:21p m RLE PAIN September 19, 2024 4:03p m 6 M FU September 20, 2024 1:22p m 4 M FU October 11, 2024 12:5 2pm Reason for Visit Admit Date Trigger finger, left ring finger Februar y 2024 1:23pm Leg pain, anterior August 02, 2024 2:15 pm Primary osteoarthritis of right knee September 06, 2024 1:49pm Atrial fibrillation September 20, 2024 1:22p m Elevated blood pressure read ing in office with diagnosis of hypertension September 20, 2024 1:22pm Right leg swelling September 20, 2024 1:22p m Primary osteoarthritis of right knee Oct 12:52pm UTI symptoms October 11, 2024 12:5 2pm Venous insufficiency of right leg October [id number] 12:52pm On continuous oral anticoagulation October 11, 2024 12:52pm Unspecified atrial fibrillation October 12:52pm Chief Complaint Admit Date LEFT HAND June 28, 2024 1:23pm SWOLLEN RT LEG/TROUBLE WALKING August 2:15pm E-ORDER August 24, 2024 2:5 2pm R knee injection September 06, 2024 1:49pm CONCERN FOR UTI September 19, 2024 2:49p m lower extremity September 19, 2024 3:21p m RLE PAIN September 19, 2024 4:03p m 6 M FU September 20, 2024 1:22p m 4 M FU October 11, 2024 12:5 2pm CONCERN FOR UTI October 22, 2024 7:59 am Reason for Visit Admit Date Trigger finger, left ring finger Februar y 2024 1:23pm Leg pain, anterior August 02, 2024 2:15 pm Primary osteoarthritis of right knee September 06, 2024 1:49pm Atrial fibrillation September 20, 2024 1:22p m Elevated blood pressure read ing in office with diagnosis of hypertension September 20, 2024 1:22pm Right leg swelling September 20, 2024 1:22p m Primary osteoarthritis of right knee Oct 12:52pm UTI symptoms October 11, 2024 12:5 2pm Venous insufficiency of right leg October [id number] 12:52pm On continuous oral anticoagulation October 11, 2024 12:52pm Unspecified atrial fibrillation October 12:52pm UTI symptoms October 22, 2024 7:59 am Chief Complaint Admit Date SWOLLEN RT LEG/TROUBLE WALKING August 2:15pm E-ORDER August 24, 2024 2:5 2pm R knee injection September 06, 2024 1:49pm CONCERN FOR UTI September 19, 2024 2:49p m lower extremity September 19, 2024 3:21p m RLE PAIN September 19, 2024 4:03p m 6 M FU September 20, 2024 1:22p m 4 M FU October 11, 2024 12:5 2pm CONCERN FOR UTI October 22, 2024 7:59 am Reason for Visit Admit Date Leg pain, anterior August 02, 2024 2:15 pm Primary osteoarthritis of right knee September 06, 2024 1:49pm Atrial fibrillation September 20, 2024 1:22p m Elevated blood pressure read ing in office with diagnosis of hypertension September 20, 2024 1:22pm Right leg swelling September 20, 2024 1:22p m Primary osteoarthritis of right knee Yannick e 2024 12:52pm UTI symptoms October 11, 2024 12:5 2pm Venous insufficiency of right leg October [id number] 12:52pm On continuous oral anticoagulation October 11, 2024 12:52pm Unspecified atrial fibrillation October 12:52pm UTI symptoms October 22, 2024 7:59 am Additional Source Comments INFORMATION SOURCE (unrecogn ized section and content) DATE CREATED AUTHOR 07/08/2018 [facility] DATE CREATED AUTHOR AUTHOR'S ORGANIZ ATION 11/19/2021 [facility] DATE CREATED AUTHOR AUTHOR'S ORGANIZ ATION 10/31/2024 [facility] Goals (unrecognized section and content) Goals may be documented in a n alternate sectionGoals may be documented in an alternate sectionGoals may be documented in an alternate sectionGoals may be documented in an alternate sectionGoals may be documented in an alternate sectionGoals may be documented in an alternate sectionGoals may be documented in an alternate sectionGoals may be documented in an alternate sectionGoals may be documented in an alternate sectionGoals may be documented in an alternate sectionGoals may be documented in an alternate sectionGoals may be documented in an alternate sectionGoals may be documented in an alternate sectionGoals may be documented in an alternate sectionGoals may be documented in an alternate sectionGoals may be documented in an alternate sectionGoals may be documented in an alternate sectionGoals may be documented in an alternate sectionGoals may be documented in an alternate sectionGoals may be documented in an alternate section Source Comments (unrecognize d section and content) In the event this informatio n is protected by the Federal Confidentiality of Alcohol and Drug Abuse Patient Records regulations: The Federal rules restrict any use of the information to criminally investigate or prosecute any alcohol or drug abuse patient.[facility] Reason for Visit (unrecogniz ed section and content) Reason Comments Appointment Cancelled Care Teams (unrecognized sec tion and content) Team Status: Active Member Role Status Dates Dr. Mely Epperson DO Primary Care Provider Active Team Status: Inactive Member Role Status Dates Dr. Mely Epperson DO Primary Care Provider Active Start: June 14, 2024 End: June 14, 2024 Dr. Mely Epperson DO Attending Provider Active Start: June 14, 2024 End: June 14, 2024 Dr. Mely Epperson DO Referring Provider Active Start: June 14, 2024 End: June 14, 2024 Team Status: Inactive Member Role Status Dates Dr. Mely Epperson DO Primary Care Provider Active Start: June 28, 2024 End: June 28, 2024 Dr. Mely Epperson DO Referring Provider Active Start: June 28, 2024 End: June 28, 2024 Dr. Mark London DO Attending Provider Active Start: June 28, 2024 End: June 28, 2024 Team Status: Inactive Member Role Status Dates Dr. Mely Epperson DO Primary Care Provider Active Start: August 02, 2024 End: August 02, 2024 Dr. Mely Epperson DO Attending Provider Active Start: August 02, 2024 End: August 02, 2024 Dr. Mely Epperson DO Referring Provider Active Start: August 02, 2024 End: August 02, 2024 Team Status: Inactive Member Role Status Dates Dr. Mely Epperson DO Primary Care Provider Active Start: August 24, 2024 End: August 24, 2024 Dr. Mely Epperson DO Attending Provider Active Start: August 24, 2024 End: August 24, 2024 Dr. Mely Epperson DO Referring Provider Active Start: August 24, 2024 End: August 24, 2024 Team Status: Inactive Member Role Status Dates Dr. Mely Epperson DO Primary Care Provider Active Start: September 06, 2024 End: September 06, 2024 Dr. Mely Epperson DO Referring Provider Active Start: September 06, 2024 End: September 06, 2024 Jeff LUQUE, PA Attending Provider Active St art: September 06, 2024 End: September 06, 2024 Team Status: Inactive Member Role Status Dates Dr. Mely Epperson DO Primary Care Provider Active Start: September 19, 2024 End: September 19, 2024 Dr. Mely Epperson DO Referring Provider Active Start: September 19, 2024 End: September 19, 2024 Long LUQUE, PA Attending Provider Active Start: September 19, 2024 End: September 19, 2024 Team Status: Active Member Role Status Dates Dr. Mely Epperson DO Primary Care Provider Active Start: September 19, 2024 Long LUQUE PA Attending Provider Active Start: September 19, 2024 Team Status: Inactive Member Role Status Dates Dr. Mely Epperson DO Primary Care Provider Active Start: September 19, 2024 End: September 19, 2024 Dr. Uvaldo Fine DO Emergency Provider Active Start : September 19, 2024 End: September 19, 2024 Answering Service Operator Relationship Specialty Start Date End Date Mely Epperson DO [address] [place], [place] [id number] PCP - General Family Practice 03/04/18 George Malik [address] [place] [address] Physician Cardiology 03/04/18 Team Status: Active Member Role Status Dates Dr. Mely Epperson DO Family Provider Active Dr. Mely Epperson DO Primary Care Provider Active Team Status: Inactive Member Role Status Dates Dr. Mely Epperson DO Primary Care Provider, Referr ing Provider Active Raul Durham AWNING MAKER, AWNING MAKER-C Attending Provider Active Team Status: Inactive Member Role Status Dates Dr. Mely Epperson DO Primary Care Pr ovider, Attending Provider, Referring Provider Active Team Status: Inactive Member Role Status Dates Dr. Mely Epperson DO Primary Care Provider Active Dr. Long Tay MD Attending Provider, Referring P rovider Active Team Status: Inactive Member Role Status Dates Dr. Mely Epperson , DO Primary Care Provider, Attend ing Provider Active Team Status: Inactive Member Role Status Dates Dr. Mely Epperson , DO Primary Care Provider Active ENE La Attending Provider, Referring Pro vider Active Team Status: Inactive Member Role Status Dates Dr. Mely Epperson , DO Primary Care Provider Active ENE Girard Attending Provider Active Team Status: Inactive Member Role Status Dates Dr. Mely Epperson , DO Primary Care Provider, Referr ing Provider Active Raf Manley AWNING MAKER, AWNING MAKER-C Attending Provider Active Team Status: Inactive Member Role Status Dates Dr. Mely Epperson , DO Primary Care Provider Active Raf Manley AWNING MAKER, AWNING MAKER-C Attending Provider, Referring Prov ider Active Team Status: Inactive Member Role Status Dates Dr. Mely Epeprson , DO Primary Care Provider, Referr ing Provider Active Long LUQUE, PA Attending Provider Active Team Status: Inactive Member Role Status Dates Dr. Mely Epperson , DO Primary Care Provider Active Bear MUNIZ MD Attending Provider Active Team Status: Inactive Member Role Status Dates Dr. Mely Epperson , DO Primary Care Provider Active Dr. Munir Morales DO Emergency Provider Active Team Status: Inactive Member Role Status Dates Dr. Mely Epperson , DO Primary Care Provider Active Dr. Munir Morales DO Attending Provider, Emergency P rovider Active Team Status: Inactive Member Role Status Dates Dr. Mely Epperson , DO Primary Care Provider Active Dr. Guanako Chan MD Emergency Provider Active Team Status: Inactive Member Role Status Dates Dr. Mely Epperson , DO Primary Care Provider Active Dr. Guanako Chan MD Attending Provider, Emergency Provi christopher Active Team Status: Inactive Member Role Status Dates Dr. Mely Epperson , DO Primary Care Provider Active ENE Girard Attending Provider, Referring Provid er Active Team Status: Inactive Member Role Status Dates Dr. Mely Epperson , DO Primary Care Provider, Referr ing Provider Active ABDULAZIZ Oneill Attending Provider Active Team Status: Inactive Member Role Status Dates Dr. Mely Epperson , DO Primary Care Provider, Referr ing Provider Active Will LUQUE, PA Attending Provider Active Team Status: Inactive Member Role Status Dates Dr. Mely Epperson , DO Primary Care Provider Active ABDULAZIZ One[place] Attending Provider Active Team Status: Inactive Member Role Status Dates Dr. Mely Epperson DO Primary Care Provider, Referr ing Provider Active Dr. Chad Tony MD Attending Provider Active Team Status: Inactive Member Role Status Dates Dr. Mely Epperson DO Primary Care Provider Active Dr. Chad Tony MD Attending Provider, Referring Provider Active Team Status: Inactive Member Role Status Dates Dr. Mely Epperson DO Primary Care Provider Active Start: September 20, 2024 End: September 20, 2024 Dr. Mely Epperson DO Referring Provider Active Start: September 20, 2024 End: September 20, 2024 Dr. Chad Tony MD Attending Provider Active Start: September 20, 2024 End: September 20, 2024 Team Status: Inactive Member Role Status Dates Dr. Mely Epperson DO Primary Care Provider Active Start: September 19, 2024 End: September 19, 2024 Long LUQUE, PA Attending Provider Active Start: September 19, 2024 End: September 19, 2024 Team Status: Inactive Member Role Status Dates Dr. Mely Epperson DO Primary Care Provider Active Start: September 19, 2024 End: September 19, 2024 Dr. Uvaldo Fine DO Attending Provider Active Start : September 19, 2024 End: September 19, 2024 Dr. Uvaldo Fine DO Emergency Provider Active Start : September 19, 2024 End: September 19, 2024 Team Status: Active Member Role Status Dates Dr. Aayush Parham MD Attending Provider Active Start: September 19, 2024 Dr. Uvaldo Fine DO Referring Provider Active Start : September 19, 2024 Team Status: Inactive Member Role Status Dates Dr. Mely Epperson DO Primary Care Provider Active Start: October 11, 2024 End: October 11, 2024 Dr. Mely Epperson DO Attending Provider Active Start: October 11, 2024 End: October 11, 2024 Dr. Mely Epperson DO Referring Provider Active Start: October 11, 2024 End: October 11, 2024 Team Status: Active Member Role Status Dates Dr. Mely Epperson DO Primary Care Provider Active Start: October 11, 2024 Dr. Mely Epperson DO Attending Provider Active Start: October 11, 2024 Dr. Mely Epperson DO Referring Provider Active Start: October 11, 2024 Team Status: Inactive Member Role Status Dates Dr. Mely Epperson DO Primary Care Provider Active Start: October 22, 2024 End: October 22, 2024 Dr. Mely Epperson DO Referring Provider Active Start: October 22, 2024 End: October 22, 2024 Raul Durham AWNING MAKER, AWNING MAKER-C Attending Provider Active S tart: October 22, 2024 End: October 22, 2024 Team Status: Active Member Role/Relationship Status Dates Dr. Mely Epperson DO Primary Care Provider Active Team Status: Inactive Member Role/Relationship Status Dates Dr. Mely Epperson DO Primary Care Provider Active Start: August 02, 2024 End: August 02, 2024 Dr. Mely Epperson DO Attending Provider Active Start: August 02, 2024 End: August 02, 2024 Dr. Mely Epperson DO Referring Provider Active Start: August 02, 2024 End: August 02, 2024 Team Status: Inactive Member Role/Relationship Status Dates Dr. Mely Epperson DO Primary Care Provider Active Start: August 24, 2024 End: August 24, 2024 Dr. Mely Epperson DO Attending Provider Active Start: August 24, 2024 End: August 24, 2024 Dr. Mely Epperson DO Referring Provider Active Start: August 24, 2024 End: August 24, 2024 Team Status: Inactive Member Role/Relationship Status Dates Dr. Mely Epperson DO Primary Care Provider Active Start: September 06, 2024 End: September 06, 2024 Dr. Mely Epperson DO Referring Provider Active Start: September 06, 2024 End: September 06, 2024 Jeff LUQUE PA Attending Provider Active St art: September 06, 2024 End: September 06, 2024 Team Status: Inactive Member Role/Relationship Status Dates Dr. Mely Epperson DO Primary Care Provider Active Start: September 19, 2024 End: September 19, 2024 Dr. Mely Epperson DO Referring Provider Active Start: September 19, 2024 End: September 19, 2024 Long LUQUE PA Attending Provider Active Start: September 19, 2024 End: September 19, 2024 Team Status: Inactive Member Role/Relationship Status Dates Dr. Mely Epperson DO Primary Care Provider Active Start: September 19, 2024 End: September 19, 2024 Long LUQUE PA Attending Provider Active Start: September 19, 2024 End: September 19, 2024 Team Status: Inactive Member Role/Relationship Status Dates Dr. Mely Epperson DO Primary Care Provider Active Start: September 19, 2024 End: September 19, 2024 Dr. Uvaldo Fine DO Attending Provider Active Start : September 19, 2024 End: September 19, 2024 Dr. Uvaldo Fine DO Emergency Provider Active Start : September 19, 2024 End: September 19, 2024 Team Status: Active Member Role/Relationship Status Dates Dr. Aayush Parham MD Attending Provider Active Start: September 19, 2024 Dr. Uvaldo Fine DO Referring Provider Active Start : September 19, 2024 Team Status: Inactive Member Role/Relationship Status Dates Dr. Mely Epperson DO Primary Care Provider Active Start: September 20, 2024 End: September 20, 2024 Dr. Mely Epperson DO Referring Provider Active Start: September 20, 2024 End: September 20, 2024 Dr. Chad Tony MD Attending Provider Active Start: September 20, 2024 End: September 20, 2024 Team Status: Inactive Member Role/Relationship Status Dates Dr. Mely Epperson DO Primary Care Provider Active Start: October 11, 2024 End: October 11, 2024 Dr. Mely Epperson DO Attending Provider Active Start: October 11, 2024 End: October 11, 2024 Dr. Mely Epperson DO Referring Provider Active Start: October 11, 2024 End: October 11, 2024 Team Status: Inactive Member Role/Relationship Status Dates Dr. Mely Epperson DO Primary Care Provider Active Start: October 11, 2024 End: October 11, 2024 Dr. Mely Epperson DO Attending Provider Active Start: October 11, 2024 End: October 11, 2024 Dr. Mely Epperson DO Referring Provider Active Start: October 11, 2024 End: October 11, 2024 Team Status: Inactive Member Role/Relationship Status Dates Dr. Mely Epperson DO Primary Care Provider Active Start: October 22, 2024 End: October 22, 2024 Dr. Mely Epperson DO Referring Provider Active Start: October 22, 2024 End: October 22, 2024 Raul Durham AWNING MAKER, AWNING MAKER-C Attending Provider Active S tart: October 22, 2024 End: October 22, 2024 Team Status: Inactive Member Role/Relationship Status Dates Dr. Mely Epperson , Primary Care Provider Active Start: October 23, 2024 End: October 23, 2024 Raul Durham AWNING MAKER, AWNING MAKER-C Attending Provider Active S tart: October 23, 2024 End: October 23, 2024 FOR RECORDS PERTAINING TO PATIENTS WHO ARE [...] BE BASED ON THE PRIMARY CLINICAL RECORDS. [facility]. provides no warranty or guarantee of the accuracy or completeness of information in this document.
[2024-11-12 09:57] LABS: Anion Gap 10 (5-15); BUN 5 mg/dL (4-19); BUN/Creat Ratio 8.3 RATIO (10-20); Calcium,Total 8.8 mg/dL (7.6-11.0); Carbon Dioxide 26.0 mmol/L (21.0-32.0); Chloride 96 mmol/L (98-108); Estimated Creatinine Clearance 48.98 ml/min (50-250); Glucose 95 mg/dL (70-99); Potassium 3.9 mmol/L (3.3-5.1)
[2024-11-12 10:02] LABS: Squamous Epithelial Cells - UA 0-5 SEEN /hpf (5-10)
[2024-11-12 10:17] VITALS: BP 180/86; PULSE 48; RESP 16; O2SAT 99
[2024-11-12 10:50] VITALS: BP 180/86; PULSE 48; RESP 16; TEMP 36.8; O2SAT 99
== END 2024-11-12 10:59 | disposition home or self-care (01) ==
PROVIDERS: Emergency Provider Emergency Medicine; PCP Family Medicine; Visit Provider Emergency Medicine
DX: R60.9 Edema, unspecified (principal); I10 Essential (primary) hypertension; R39.89 Other symptoms and signs involving the genitourinary system; E78.00 Pure hypercholesterolemia, unspecified; R06.02 Shortness of breath; I25.10 Atherosclerotic heart disease of native coronary artery without angina pectoris; M79.89 Other specified soft tissue disorders; R51.9 Headache, unspecified
CPT/HCPCS: 71046; 80048; 81001; 85025; 99284

== ENCOUNTER → 2025-01-02 | Outpatient (CLI) | payer MEDICARE, SELFPAY ==
--- NOTE | 2025-01-02 12:57 | US_ITS ---
PROCEDURE: KIDNEY AND BLADDER N/A REASON FOR EXAM: URINARY TRACT INFECTION TECHNIQUE: Procedure Code: USKI Modality: US Procedure: KIDNEY AND BLADDER COMPARISON: Prior study dated May 24, 2023. FINDINGS: Kidneys: Normal renal sizes, parenchymal thicknesses, and echotextures. [place]: No hydronephrosis. Cysts or Masses: There is a 2.8 cm x 2.4 cm 3.1 cm cyst in the right kidney. 2 cysts are seen in the left kidney. The largest cyst measures 3.6 cm x 3.5 cm x 2.9 cm. Other: RIGHT Kidney Size: 11.6 cm x 5.7 cm x 4.4 cm Volume: 152.01 mL Cortical Thickness (if discernible): 14 mm (>6mm is normal) LEFT Kidney Size: 13 cm x 5.3 cm x 5 cm Volume: 182.86 mL Cortical Thickness (if discernible): 18 mm (>6mm is normal) US/Kidney and Bladder IMPRESSION: Bilateral renal cysts. No evidence of hydronephrosis. Reading Location: [place] [id number]
== END | disposition home or self-care (01) ==
LOC: US 12:57
PROVIDERS: PCP Family Medicine; Referring Provider Urology; Visit Provider Urology
DX: N39.0 Urinary tract infection, site not specified (principal)
CPT/HCPCS: 76770